=== PATIENT | male | born 1960 | race Caucasian/White ===

== ENCOUNTER → 2016-06-03 | Emergency (ER) | payer MEDICAID, OTHER ==
[~2016-06-03] VITALS: Ht 162.6 cm; Wt 90.7 kg
[~2016-06-03] MED LIST: ATEN50TA2 PO; BENAZEPRIL-HCTZ PO; ISOVUE-370 76% 100ML VIAL (Q9967) As Ordered ONE
[2016-06-03 03:34] LABS: BASO # 0.1 K/mm3 (0.0-0.2); BASO % 0.5 % (0.0-1.0); EOS % 0.3 % (0.0-3.0); LARGE UNSTAINED CELL # 0.1 K/mm3 (0.0-0.4); LARGE UNSTAINED CELL % 0.6 % (0.0-4.0); LYMPH # 0.9 K/mm3 (1.5-4.5); LYMPH % 6.9 % (24.0-44.0); MEAN CORPUSCULAR HEMOGLOBIN 35.6 pg (27.0-33.0); MEAN CORPUSCULAR HGB CONC 35.6 g/dl (32.0-36.5); MEAN CORPUSCULAR VOLUME 99.9 fl (80.0-96.0); NEUTROPHILS # 10.1 K/mm3 (1.8-7.7); NEUTROPHILS % 83.6 % (36.0-66.0); RED CELL DISTRIBUTION WIDTH 13.8 % (11.5-14.5); WHITE BLOOD COUNT 12.1 K/mm3 (4.0-10.0)
[2016-06-03] MEDS: PANTOPRAZOLE 40MG INJ (PROTONIX) (C9113) IV ONE (03:41)
[2016-06-03 03:52] LABS: ALBUMIN 2.7 GM/DL (3.2-5.2); ALBUMIN/GLOBULIN RATIO 0.59 (1.00-1.93); ALKALINE PHOSPHATASE 89 U/L (45-117); ALT/SGPT 24 U/L (12-78); ANION GAP 11 MEQ/L (8-16); AST/SGOT 28 U/L (15-37); BILIRUBIN,DIRECT 1.1 MG/DL (0.0-0.2); BILIRUBIN,TOTAL 3.3 MG/DL (0.2-1.0); BLOOD UREA NITROGEN 29 MG/DL (7-18); CALCIUM LEVEL 8.3 MG/DL (8.5-10.1); CARBON DIOXIDE LEVEL 28 MEQ/L (21-32); CHLORIDE LEVEL 99 MEQ/L (98-107); CREATININE FOR GFR 1.11 MG/DL (0.70-1.30); GLOMERULAR FILTRATION RATE > 60.0 (>56); GLUCOSE, FASTING 237 MG/DL (70-105); POTASSIUM SERUM 4.3 MEQ/L (3.5-5.1); SODIUM LEVEL 138 MEQ/L (136-145); TOTAL PROTEIN 7.3 GM/DL (6.4-8.2)
[2016-06-03 04:13] LABS: INR 1.49
[2016-06-03 04:17] LABS: PLATELET COUNT, AUTOMATED 73 k/mm3 (150-450)
[2016-06-03] MEDS: OCTREOTIDE ACETATE 50 MCG/ML VIAL (J2354) IV SCH (05:00)
[2016-06-03] MEDS: CIPRODEX OTIC SUSP 7.5ML AS ONE (05:17)
[2016-06-03] MEDS: ONDANSETRON 4MG/2ML VIAL (J2405) IV ONE ×2 (05:23→07:00)
--- NOTE | 2016-06-03 05:30 | REPUSA ---
CLINICAL HISTORY: Abdominal pain. TECHNIQUE: Multiple axial, sagittal and coronal CT images were obtained through the abdomen and pelvi s after administration of oral and intravenous contrast material. COMMENTS: Diffuse nodularity and mesenteric congestion. 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 Re sidual flow is identified in the vein. The liver is cirrhotic. There is no intra or extrahepatic biliary ductal dilatation. The spleen is mi ldly enlarged. The gallbladder is diffusely thickened. Gallstones are noted. The pancreas is of deepa l contour and attenuation characteristics. There is no evidence of adrenal mass. Mild thickening of the proximal small bowels. Both kidneys demonstrate prompt and equal nephrograms. The kidneys are normal in size, shape and conf iguration. There is no evidence of renal or ureteral mass. No renal or ureteral calculi are identifie d. There is no hydroureter or hydronephrosis. No evidence for appendicitis. There is diffuse thickening of the mid aspect of the sigmoid colon. Co lonic diverticulosis. No evidence for small or large bowel obstruction. There is no evidence of abdom inal ascites or lymphadenopathy. There is no evidence of intrinsic or extrinsic bladder mass. Mild thickening of the wall of the bladd er. There is minimal amount of free pelvic fluid. Mild prostatomegaly. Images of the lung bases show no evidence of pleural or parenchymal mass. There are no pleural effusi ons. The bony structures are free of lytic or blastic lesions. Multilevel degenerative changes are seen in volving the thoracolumbar spine. Scattered calcifications are seen involving the aorta and major bran ches compatible with atherosclerosis. Fat containing umbilical hernia without incarceration. IMPRESSION: Liver cirrhosis. Portal hypertension. Mesenteric congestion and thickened bowels. 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 There is no extension of the thrombus into the portal or splenic veins. Thickened gallbladder. Cholelithiasis. Thickening of the mid aspect of the sigmoid colon. Under distention, spasm versus infectious/inflamma tory pathology. Clinical evaluation and followup are suggested to exclude underlying neoplastic patho logy. Thank you for your kind referral of this patient.
[2016-06-03] MEDS: NS 1,000 ML IV ONE (05:45)
[2016-06-03 07:04] VITALS: BP 138/72
--- NOTE | 2016-06-03 16:43 | ECGEPIP ---
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
== END | disposition home or self-care (01) ==
LOC: M ED 03:33
DX: K92.2 Gastrointestinal hemorrhage, unspecified (principal)
CPT/HCPCS: 36415; 74177; 80048; 80076; 82550; 82553; 83690; 85025; 85610; 85730; 86850; 86900; 86901; 93005; 93041; 96374; 99285; C9113; G0480; J2354; J2405; Q9967

== ENCOUNTER → 2016-06-13 | Outpatient (REF) | payer MEDICAID ==
[~2016-06-13] MED LIST changes: -ISOVUE-370 76% 100ML VIAL (Q9967) As Ordered ONE
[2016-06-13 17:00] LABS: BASO % 0.6 % (0.0-1.0); EOS # 0.2 K/mm3 (0.0-0.50); EOS % 2.5 % (0.0-3.0); LARGE UNSTAINED CELL # 0.1 K/mm3 (0.0-0.4); LARGE UNSTAINED CELL % 1.8 % (0.0-4.0); LYMPH # 1.2 K/mm3 (1.5-4.5); LYMPH % 18.3 % (24.0-44.0); MEAN CORPUSCULAR HEMOGLOBIN 32.9 pg (27.0-33.0); MEAN CORPUSCULAR HGB CONC 33.6 g/dl (32.0-36.5); MONO # 0.6 K/mm3 (0.0-0.8); MONO % 9.6 % (0.0-5.0); NEUTROPHILS # 4.2 K/mm3 (1.8-7.7); NEUTROPHILS % 67.2 % (36.0-66.0); RED CELL DISTRIBUTION WIDTH 15.9 % (11.5-14.5); WHITE BLOOD COUNT 6.3 K/mm3 (4.0-10.0)
[2016-06-13 17:05] LABS: PLATELET COUNT, AUTOMATED 80 k/mm3 (150-450)
== END ==
LOC: M SFHCCLAY 11:14
PROVIDERS: ATTEND Nurse Practitioner Family
DX: K92.2 Gastrointestinal hemorrhage, unspecified (principal)

== ENCOUNTER → 2016-07-09 | Outpatient (CLI) | payer MEDICAID ==
[~2016-07-09] MED LIST changes: +BENA20TA7 PO; +NADO20TA PO; +PROT1TAB2 PO
[2016-07-09 13:22] LABS: INR 1.32
[2016-07-09 13:37] LABS: BASO % 0.6 % (0.0-1.0); EOS # 0.2 K/mm3 (0.0-0.50); EOS % 3.1 % (0.0-3.0); LARGE UNSTAINED CELL # 0.1 K/mm3 (0.0-0.4); LARGE UNSTAINED CELL % 1.5 % (0.0-4.0); LYMPH % 18.7 % (24.0-44.0); MEAN CORPUSCULAR HEMOGLOBIN 32.8 pg (27.0-33.0); MEAN CORPUSCULAR HGB CONC 33.6 g/dl (32.0-36.5); MEAN CORPUSCULAR VOLUME 97.6 fl (80.0-96.0); MONO # 0.4 K/mm3 (0.0-0.8); MONO % 8.5 % (0.0-5.0); NEUTROPHILS # 3.3 K/mm3 (1.8-7.7); NEUTROPHILS % 67.6 % (36.0-66.0); RED CELL DISTRIBUTION WIDTH 14.7 % (11.5-14.5); WHITE BLOOD COUNT 4.9 K/mm3 (4.0-10.0)
[2016-07-09 13:43] LABS: PLATELET COUNT, AUTOMATED 52 k/mm3 (150-450)
[2016-07-09 13:47] LABS: ALBUMIN 3.1 GM/DL (3.2-5.2); ALBUMIN/GLOBULIN RATIO 0.65 (1.00-1.93); ALKALINE PHOSPHATASE 82 U/L (45-117); ALT/SGPT 25 U/L (12-78); ANION GAP 7 MEQ/L (8-16); AST/SGOT 25 U/L (15-37); BILIRUBIN,TOTAL 1.3 MG/DL (0.2-1.0); BLOOD UREA NITROGEN 11 MG/DL (7-18); CALCIUM LEVEL 8.9 MG/DL (8.5-10.1); CARBON DIOXIDE LEVEL 29 MEQ/L (21-32); CHLORIDE LEVEL 103 MEQ/L (98-107); CREATININE FOR GFR 0.79 MG/DL (0.70-1.30); GLOMERULAR FILTRATION RATE > 60.0 (>56); GLUCOSE, FASTING 127 MG/DL (70-105); PERCENT SATURATION 24.7 % (19.7-37.4); POTASSIUM SERUM 3.7 MEQ/L (3.5-5.1); SODIUM LEVEL 139 MEQ/L (136-145); TOTAL IRON BINDING CAPACITY 360 UG/DL (250-450); TOTAL PROTEIN 7.9 GM/DL (6.4-8.2)
[2016-07-12 00:07] LABS: HCV RNA NAA QUALITIATIVE Negative (Negative)
== END ==
LOC: M LAB 12:28
PROVIDERS: ATTEND Internal Medicine Gastroenterology
DX: K76.6 Portal hypertension (principal); K70.30 Alcoholic cirrhosis of liver without ascites

== ENCOUNTER → 2016-07-22 | Outpatient (CLI) | payer MEDICAID, OTHER ==
[~2016-07-22] VITALS: Ht 162.6 cm; Wt 86.6 kg
[~2016-07-22] MED LIST changes: +LIDOCAINE 2% INJ 100 MG/5 ML SDV (FOR ANES.) As Ordered ONE; +NS 1,000 ML IV ONE; +PROPOFOL 200 MG/20 ML VIAL As Ordered ONE; +PROPOFOL 500 MG/50 ML VIAL As Ordered ONE
--- NOTE | 2016-07-22 10:31 | ROOR ---
Patient Name: Mak Mendieta Procedure Date: 07/22/2016 10:13 AM Date of : 1960 Age: 55 Room: [facility] Gender: Male Note Status: Finalized Procedure: Upper GI endoscopy Indications: Cirrhosis with suspected esophageal varices Providers: Cecilio TOPETE MD Referring MD: Jordyn Salmon NP Requesting Provider: Medicines: Monitored Anesthesia Care Complications: No immediate complications. Procedure: Pre-Anesthesia Assessment: - The heart rate, respiratory rate, oxygen saturations, blood pressure, adequacy of pulmonary ventilation, and response to care were monitored throughout the procedure. The Endoscope was introduced through the mouth, and advanced to the second part of duodenum. The upper GI endoscopy was accomplished without difficulty. The patient tolerated the procedure well. Findings: Grade II varices were found in the lower third of the esophagus. They were medium in size. Five bands were successfully placed with complete eradication, resulting in deflation of varices. There was no bleeding during, and at the end, of the procedure. The exam of the esophagus was otherwise normal. The entire examined stomach was normal. The examined duodenum was normal. Impression: - Grade II esophageal varices. Completely eradicated. Banded. - Normal stomach. - Normal examined duodenum. - No specimens collected. Recommendation: - Start/continue a Non-selective Beta Ose[place] such as Propranolol or Nadolol, titrate to heart rate. - Repeat upper endoscopy in 1 month for retreatment. Cecilio Topete MD Cecilio TOPETE MD 07/22/2016 10:31:01 AM This report has been signed electronically. Number of Addenda: 0 Note Initiated On: 07/22/2016 10:13 AM Estimated Blood Loss: Estimated blood loss: none.
--- NOTE | 2016-07-22 10:47 | ROOR ---
Patient Name: Mak Mendieta Procedure Date: 07/22/2016 10:14 AM Date of : 1960 Age: 55 Room: [facility] Gender: Male Note Status: Finalized Procedure: Colonoscopy Indications: Screening in patient at increased risk: Colorectal cancer in mother before age 60 Providers: Cecilio TOPETE MD Referring MD: Jordyn Salmon NP Requesting Provider: Medicines: Monitored Anesthesia Care Complications: No immediate complications. Procedure: Pre-Anesthesia Assessment: - The heart rate, respiratory rate, oxygen saturations, blood pressure, adequacy of pulmonary ventilation, and response to care were monitored throughout the procedure. The Colonoscope was introduced through the anus and advanced to the cecum, identified by appendiceal orifice and ileocecal valve. The colonoscopy was performed without difficulty. The patient tolerated the procedure well. The quality of the bowel preparation was good. Findings: The perianal and digital rectal examinations were normal. A 2 mm polyp was found in the cecum. The polyp was sessile. The polyp was removed with a jumbo cold forceps. Resection and retrieval were complete. Three sessile polyps were found in the sigmoid colon. The polyps were 3 to 5 mm in size. These polyps were removed with a cold snare. Resection and retrieval were complete. Multiple medium-mouthed diverticula were found in the sigmoid colon, descending colon and ascending colon. The exam was otherwise without abnormality on direct and retroflexion views. Impression: - One 2 mm polyp in the cecum, removed with a jumbo cold forceps. Resected and retrieved. - Three 3 to 5 mm polyps in the sigmoid colon, removed with a cold snare. Resected and retrieved. - Diverticulosis in the sigmoid colon, in the descending colon and in the ascending colon. - Small internal hemorrhoids - The colon examination was otherwise normal on direct and retroflexion views. Recommendation: - Repeat colonoscopy in 3 years for surveillance. Cecilio Topete MD Cecilio TOPETE MD 07/22/2016 10:46:52 AM This report has been signed electronically. Number of Addenda: 0 Note Initiated On: 07/22/2016 10:14 AM Estimated Blood Loss: Estimated blood loss: none.
[2016-07-22 11:05] VITALS: BP 176/95
== END | disposition home or self-care (01) ==
LOC: M OPP 09:07
PROVIDERS: ATTEND Internal Medicine Gastroenterology
DX: Z12.11 Encounter for screening for malignant neoplasm of colon (principal); D12.0 Benign neoplasm of cecum; D12.5 Benign neoplasm of sigmoid colon; K57.30 Diverticulosis of large intestine without perforation or abscess without bleeding; K64.8 Other hemorrhoids; Z80.0 Family history of malignant neoplasm of digestive organs; K74.60 Unspecified cirrhosis of liver; I85.10 Secondary esophageal varices without bleeding; I10 Essential (primary) hypertension; K57.92 Diverticulitis of intestine, part unspecified, without perforation or abscess without bleeding; Z87.19 Personal history of other diseases of the digestive system; R12 Heartburn; Z86.19 Personal history of other infectious and parasitic diseases; F17.210 Nicotine dependence, cigarettes, uncomplicated; Z79.899 Other long term (current) drug therapy

== ENCOUNTER → 2017-06-30 | Outpatient (REF) | payer OTHER ==
[2017-06-30 17:49] LABS: TOTAL 25(OH) VITAMIN D 15.3 NG/ML (30.0-100.0); VITAMIN B12 LEVEL 953 PG/ML (247-911)
[2017-06-30 17:50] LABS: ESTIMATED AVERAGE GLUCOSE 243 MG/DL (60-110); FOLATE 7.3 NG/ML (>5.4); HEMOGLOBIN A1c 10.1 %
[2017-06-30 18:02] LABS: ALBUMIN 3.5 GM/DL (3.2-5.2); ALKALINE PHOSPHATASE 126 U/L (45-117); ALT/SGPT 34 U/L (12-78); ANION GAP 12 MEQ/L (8-16); AST/SGOT 59 U/L (7-37); BILIRUBIN,TOTAL 4.8 MG/DL (0.2-1.0); BLOOD UREA NITROGEN 17 MG/DL (7-18); CALCIUM LEVEL 9.1 MG/DL (8.5-10.1); CARBON DIOXIDE LEVEL 25 MEQ/L (21-32); CHLORIDE LEVEL 97 MEQ/L (98-107); CHOLESTEROL LEVEL 128 MG/DL (<200); CHOLESTEROL RISK RATIO 3.282 (<5); CREATININE FOR GFR 0.95 MG/DL (0.70-1.30); FERRITIN 228 NG/ML (26-388); GLOMERULAR FILTRATION RATE > 60.0 (>56); GLUCOSE, FASTING 256 MG/DL (70-100); HDL CHOLESTEROL 39 MG/DL (>40); IRON (FE) 313 UG/DL (65-175); NON-HDL-C 89 MG/DL; PERCENT SATURATION 93.7 % (19.7-50.0); POTASSIUM SERUM 3.6 MEQ/L (3.5-5.1); SODIUM LEVEL 134 MEQ/L (136-145); TOTAL IRON BINDING CAPACITY 334 UG/DL (250-450); TOTAL PROTEIN 8.5 GM/DL (6.4-8.2); TRIGLYCERIDES LEVEL 155 MG/DL (<150)
[2017-06-30 18:11] LABS: MAU/CREAT RATIO 53.2 MCG/MG (0.0-30.0); TOTAL PROTEIN,RANDOM URINE 51.5 MG/DL (0.0-12.0)
[2017-06-30 18:13] LABS: GAMMA GLUTAMYLTRANSPEPTIDASE 1082 U/L (15-85); HEMOGLOBIN 15.4 g/dl (13.5-17.5); MEAN CORPUSCULAR HEMOGLOBIN 34.2 pg (27.0-33.0); MEAN CORPUSCULAR HGB CONC 35.8 g/dl (32.0-36.5); MEAN CORPUSCULAR VOLUME 95.6 fl (80.0-96.0); RED CELL DISTRIBUTION WIDTH 13.8 % (11.5-14.5); RETIC HEMOGLOBIN EQUIVALENT 41.1 pg (24-36); RETICULOCYTE # 76.1 10^9/L (17-77); RETICULOCYTE % 1.7 % (0.5-1.5); WHITE BLOOD COUNT 4.8 10^3/uL (4.0-10.0)
[2017-06-30 18:20] LABS: PLATELET COUNT, AUTOMATED 34 10^3/uL (150-450); POSITIVE MORPH POS FLAG
== END ==
LOC: M SFHCCLAY 12:25
DX: K21.9 Gastro-esophageal reflux disease without esophagitis (principal); R73.9 Hyperglycemia, unspecified; F10.10 Alcohol abuse, uncomplicated; E78.4 Other hyperlipidemia; E55.9 Vitamin D deficiency, unspecified
CPT/HCPCS: 82746

== ENCOUNTER → 2018-04-21 | Outpatient (REF) | payer OTHER ==
[~2018-04-21] MED LIST changes: -LIDOCAINE 2% INJ 100 MG/5 ML SDV (FOR ANES.) As Ordered ONE; -NS 1,000 ML IV ONE; -PROPOFOL 200 MG/20 ML VIAL As Ordered ONE; -PROPOFOL 500 MG/50 ML VIAL As Ordered ONE
== END ==
LOC: M SFHCCLAY 13:39
PROVIDERS: ATTEND Nurse Practitioner Family
DX: R50.9 Fever, unspecified (principal)

== ENCOUNTER → 2018-04-21 | Outpatient (CLI) | payer SELFPAY ==
--- NOTE | 2018-04-21 13:30 | REP ---
Clinical: Bronchitis . Comparison: None . Technique: PA and lateral. Findings: The mediastinum and cardiac silhouette are normal. The lung torres are clear and without acute consolidation, effusion, or pneumothorax. The skeletal structures are intact and normal. Impression: 1. No acute cardiopulmonary process. Electronically Signed by Kiko Barth MD 04/21/2018 01:22 P
== END ==
LOC: M CLY 12:25
PROVIDERS: ATTEND Nurse Practitioner Family
DX: J40 Bronchitis, not specified as acute or chronic (principal)

== ENCOUNTER → 2018-11-18 | Outpatient (CLI) | payer SELFPAY | LOC: M OUTALCOH 08:31 | PROVIDERS: ATTEND Psychiatry & Neurology Psychiatry | DX: Z13.39 Encounter for screening examination for other mental health and behavioral disorders (principal); F10.20 Alcohol dependence, uncomplicated ==

== ENCOUNTER → 2019-02-28 | Outpatient (CLI) | payer SELFPAY | LOC: M OUTALCOH 08:54 | PROVIDERS: ATTEND Psychiatry & Neurology Psychiatry | DX: F10.20 Alcohol dependence, uncomplicated (principal) ==

== ENCOUNTER 2019-03-23 14:53 | Outpatient (RCR) | payer MEDICAID | END 2019-03-25 | LOC: M OUTALCOH 14:53 | PROVIDERS: ATTEND Psychiatry & Neurology Psychiatry | DX: F10.20 Alcohol dependence, uncomplicated (principal); F17.200 Nicotine dependence, unspecified, uncomplicated ==

== ENCOUNTER → 2019-11-29 | Outpatient (CLI) | payer MEDICAID | LOC: M LABSMTC 09:41 | PROVIDERS: ATTEND Pediatrics | DX: Z20.828 Contact with and (suspected) exposure to other viral communicable diseases (principal) | CPT/HCPCS: C9803; U0003 ==

== ENCOUNTER → 2020-01-18 | Outpatient (REF) | payer OTHER ==
[2020-01-18 16:41] LABS: HEMATOCRIT 41.6 % (42.0-52.0); HEMOGLOBIN 14.4 g/dl (13.5-17.5); WHITE BLOOD COUNT 4.7 10^3/uL (4.0-10.0)
[2020-01-18 16:42] LABS: MEAN CORPUSCULAR HEMOGLOBIN 32.7 pg (27.0-33.0); MEAN CORPUSCULAR HGB CONC 34.6 g/dl (32.0-36.5); MEAN CORPUSCULAR VOLUME 94.5 fl (80.0-96.0); PLATELET COUNT, AUTOMATED 53 10^3/uL (150-450)
[2020-01-18 17:02] LABS: ALT/SGPT 18 U/L (12-78); AMYLASE 57 U/L (25-115); BILIRUBIN,TOTAL 3.4 MG/DL (0.2-1.0); BLOOD UREA NITROGEN 9 MG/DL (7-18); CALCIUM LEVEL 8.9 MG/DL (8.5-10.1); CARBON DIOXIDE LEVEL 27 MEQ/L (21-32); CHLORIDE LEVEL 95 MEQ/L (98-107); CHOLESTEROL LEVEL 165 MG/DL (<200); CHOLESTEROL RISK RATIO 2.229 (<5); CREATININE FOR GFR 1.12 MG/DL (0.70-1.30); GLOMERULAR FILTRATION RATE > 60.0 (>56); GLUCOSE, FASTING 139 MG/DL (70-100); HDL CHOLESTEROL 74 MG/DL (>40); LDL CHOLESTEROL 71 MG/DL (<100); LIPASE 176 U/L (73-393); NON-HDL-C 91 MG/DL; POTASSIUM SERUM 3.4 MEQ/L (3.5-5.1); SODIUM LEVEL 132 MEQ/L (136-145); TOTAL PROTEIN 8.5 GM/DL (6.4-8.2); TRIGLYCERIDES LEVEL 100 MG/DL (<150)
[2020-01-18 17:05] LABS: TOTAL 25(OH) VITAMIN D 11.9 NG/ML (30.0-100.0)
[2020-01-18 17:07] LABS: HEMOGLOBIN A1c 5.2 %
== END ==
LOC: M SFHCCLAY 10:45
PROVIDERS: ATTEND Nurse Practitioner Family
DX: E11.8 Type 2 diabetes mellitus with unspecified complications (principal); B18.2 Chronic viral hepatitis C; K21.9 Gastro-esophageal reflux disease without esophagitis; I10 Essential (primary) hypertension; E78.5 Hyperlipidemia, unspecified; E55.9 Vitamin D deficiency, unspecified; R00.0 Tachycardia, unspecified

== ENCOUNTER → 2020-01-24 | Outpatient (REF) | payer OTHER ==
[2020-01-25 13:08] LABS: MAU/CREAT RATIO 81.2 MCG/MG (0.0-30.0)
== END ==
LOC: M SFHCCLAY 15:19
PROVIDERS: ATTEND Nurse Practitioner Family
DX: E11.8 Type 2 diabetes mellitus with unspecified complications (principal)

== ENCOUNTER 2020-07-27 12:22 | Emergency (ER) | payer OTHER ==
[~2020-07-27] VITALS: Ht 157.5 cm; Wt 90.9 kg
[2020-07-27] MEDS ORDERED: CARV6.25 (12:37)
[2020-07-27] MEDS ORDERED: LACT10SO3 (12:37)
[2020-07-27] MEDS ORDERED: FURO20TA2 (12:37)
[2020-07-27] MEDS ORDERED: NICO21DI37 (12:37)
[2020-07-27] MEDS ORDERED: SPIR-10 (12:37)
[2020-07-27 13:37] LABS: HEMATOCRIT 28.2 % (42.0-52.0); HEMOGLOBIN 9.4 g/dl (13.5-17.5); MEAN CORPUSCULAR HEMOGLOBIN 31.4 pg (27.0-33.0); MEAN CORPUSCULAR HGB CONC 33.3 g/dl (32.0-36.5); MEAN CORPUSCULAR VOLUME 94.3 fl (80.0-96.0); RED BLOOD COUNT 2.99 10^6/uL (4.30-6.10); WHITE BLOOD COUNT 4.8 10^3/uL (4.0-10.0)
[2020-07-27 13:42] LABS: PLATELET COUNT, AUTOMATED 52 10^3/uL (150-450)
[2020-07-27 13:45] LABS: INR 1.29; PROTHROMBIN TIME 16.4 SECONDS (12.5-14.3)
[2020-07-27 13:56] LABS: ALBUMIN 2.5 GM/DL (3.2-5.2); BILIRUBIN,TOTAL 1.7 MG/DL (0.2-1.0); CALCIUM LEVEL 8.8 MG/DL (8.5-10.1); CREATININE FOR GFR 1.69 MG/DL (0.70-1.30); GLOMERULAR FILTRATION RATE 44.4 (>56); POTASSIUM SERUM 3.6 MEQ/L (3.5-5.1); TOTAL PROTEIN 6.9 GM/DL (6.4-8.2)
--- NOTE | 2020-07-27 16:45 | REP ---
INDICATION: recurrent ascites. COMPARISON: None. TECHNIQUE: The procedure was performed under the direct supervision of Dr. Craig. The risks and benefits of the procedure were explained to the patient and informed consent was obtained. The largest pocket of fluid was localized in the left flank using ultrasound guidance. The skin was prepped and draped in a sterile fashion. 1% lidocaine was used as a local anesthetic. An 8-Nigerian multi side-hole catheter was inserted using trocar technique.4400 cc of yellow fluid was withdrawn and discarded. The patient tolerated the procedure well and there were no immediate complications. After the appropriate amount of monitored convalescence, the patient was discharged from the department. FINDINGS: None IMPRESSION: Ultrasound-guided paracentesis [id number] cc of yellow fluid. <Electronically signed by Kermit Kent > 07/27/20 1618 <Electronically signed by Ernie Craig > 07/27/20 1640
[2020-07-27 17:30] VITALS: BP 122/74
== END 2020-07-27 17:40 | disposition home or self-care (01) ==
LOC: M ED 12:22
DX: K70.31 Alcoholic cirrhosis of liver with ascites (principal); K40.90 Unilateral inguinal hernia, without obstruction or gangrene, not specified as recurrent; B18.2 Chronic viral hepatitis C; E78.5 Hyperlipidemia, unspecified; I10 Essential (primary) hypertension

== ENCOUNTER → 2020-08-02 | Outpatient (REF) | payer OTHER ==
[~2020-08-02] MED LIST changes: +CARV6.25; +FURO20TA2; +LACT10SO3; +NICO21DI37; +SPIR-10
[2020-08-02 16:36] LABS: BASO # 0.1 10^3/uL (0.0-0.2); BASO % 0.9 % (0.0-1.0); EOS # 0.4 10^3/uL (0.0-0.5); EOS % 5.6 % (0.0-3.0); HEMATOCRIT 29.1 % (42.0-52.0); HEMOGLOBIN 9.7 g/dl (13.5-17.5); LYMPH # 0.6 10^3/uL (1.5-5.0); LYMPH % 9.2 % (24.0-44.0); MEAN CORPUSCULAR HEMOGLOBIN 31.2 pg (27.0-33.0); MEAN CORPUSCULAR HGB CONC 33.3 g/dl (32.0-36.5); MEAN CORPUSCULAR VOLUME 93.6 fl (80.0-96.0); MONO % 15.6 % (2.0-8.0); NEUTROPHILS # 4.4 10^3/uL (1.5-8.5); NEUTROPHILS % 68.2 % (36.0-66.0); RED BLOOD COUNT 3.11 10^6/uL (4.30-6.10); WHITE BLOOD COUNT 6.4 10^3/uL (4.0-10.0)
[2020-08-02 16:37] LABS: PLATELET COUNT, AUTOMATED 55 10^3/uL (150-450)
[2020-08-02 17:21] LABS: ALBUMIN 2.4 GM/DL (3.2-5.2); BILIRUBIN,TOTAL 1.8 MG/DL (0.2-1.0); CALCIUM LEVEL 8.9 MG/DL (8.5-10.1); CREATININE FOR GFR 1.83 MG/DL (0.70-1.30); GLOMERULAR FILTRATION RATE 40.5 (>56); TOTAL PROTEIN 6.9 GM/DL (6.4-8.2)
== END ==
LOC: M SFHCCLAY 11:53
PROVIDERS: ATTEND Family Medicine
DX: K74.60 Unspecified cirrhosis of liver (principal)

== ENCOUNTER → 2020-08-07 | Outpatient (CLI) | payer OTHER ==
[~2020-08-07] MED LIST changes: -CARV6.25; +CARV6.25 PO; -FURO20TA2; +FURO20TA2 PO; -LACT10SO3; +LACT10SO3 PO; -NICO21DI37; +NICO21DI37 TD; +SODIUM BICARBONATE 8.4% INJ 50MEQ 50 ML VIAL As Ordered ONE; -SPIR-10; +SPIR-10 PO
[2020-08-07 09:56] VITALS: BP 146/72
--- NOTE | 2020-08-07 18:56 | REP ---
INDICATION: CIRRHOSIS ASCITES The patient has a history of ascites COMPARISON: None. TECHNIQUE: The procedure was performed by DAENTTE Ruelas, under the direct supervision of Dr. Craig The risks and benefits of the procedure were explained to the patient and an informed consent was obtained both verbally and written. Directly prior to the start of the procedure a formal time-out was completed in the procedure room. The largest pocket of fluid was localized in the right flank using ultrasound guidance. The skin was prepped and draped in a sterile fashion. Eleven ML of buffered lidocaine was used as a local anesthetic. An 8-Mohawk multi side-hole catheter was inserted using trocar technique. FINDINGS: Seven thousand eight hundred mL of chuyita ascites was removed and discarded. The patient tolerated the procedure well and there were no immediate complications. After the appropriate amount of monitored convalescence, the patient was discharged from the department. IMPRESSION: Ultrasound-guided paracentesis with removal of 7800 mL of chuyita ascites. <Electronically signed by Lucila Mcneill > 08/07/20 1649 <Electronically signed by Ernie Craig > 08/07/20 [id number]
== END ==
LOC: M IRPRO 08:44
PROVIDERS: ATTEND Family Medicine
DX: K70.31 Alcoholic cirrhosis of liver with ascites (principal)

== ENCOUNTER → 2020-08-15 | Outpatient (CLI) | payer OTHER ==
[~2020-08-15] MED LIST changes: -SODIUM BICARBONATE 8.4% INJ 50MEQ 50 ML VIAL As Ordered ONE
[2020-08-15 13:32] VITALS: BP 133/73
--- NOTE | 2020-08-15 16:29 | REP ---
INDICATION: ASCITES. COMPARISON: None. TECHNIQUE: The procedure was performed under the direct supervision of Dr. Craig. The risks and benefits of the procedure were explained to the patient and informed consent was obtained. The largest pocket of fluid was localized in the left flank using ultrasound guidance. The skin was prepped and draped in a sterile fashion. 1% lidocaine was used as a local anesthetic. An 8-Andorran multi side-hole catheter was inserted using trocar technique.5650 cc of yellow fluid was withdrawn and discarded. The patient tolerated the procedure well and there were no immediate complications. After the appropriate amount of monitored convalescence, the patient was discharged from the department. FINDINGS: None IMPRESSION: Ultrasound-guided paracentesis [id number] cc of yellow fluid. <Electronically signed by Kermit Kent > 08/15/20 1536 <Electronically signed by Ernie Craig > 08/15/20 0695
== END ==
LOC: M IRPRO 12:47
PROVIDERS: ATTEND Family Medicine
DX: K70.31 Alcoholic cirrhosis of liver with ascites (principal)

== ENCOUNTER → 2020-08-24 | Outpatient (CLI) | payer OTHER ==
[~2020-08-24] MED LIST changes: +SODIUM BICARBONATE 8.4% INJ 50MEQ 50 ML VIAL As Ordered ONE
[2020-08-24 13:29] VITALS: BP 131/66
--- NOTE | 2020-08-24 15:16 | REP ---
INDICATION: ASCITES The patient has a history of ascites COMPARISON: None. TECHNIQUE: The procedure was performed by DANETTE Ruelas, under the direct supervision of Dr. Guo The risks and benefits of the procedure were explained to the patient and an informed consent was obtained both verbally and written. Directly prior to the start of the procedure a formal time-out was completed in the procedure room. The largest pocket of fluid was localized in the left flank using ultrasound guidance. The skin was prepped and draped in a sterile fashion. Eleven ML of buffered lidocaine was used as a local anesthetic. An 8-Yemeni multi side-hole catheter was inserted using trocar technique. FINDINGS: 6750 mL of yellow ascites was removed and discarded. The patient tolerated the procedure well and there were no immediate complications. After the appropriate amount of monitored convalescence, the patient was discharged from the department. IMPRESSION: Ultrasound-guided paracentesis with removal of 6750 mL yellow ascites. <Electronically signed by Lucila Mcneill > 08/24/20 1512 <Electronically signed by Roderick Guo > 08/24/20 1512
== END ==
LOC: M IRPRO 12:30
PROVIDERS: ATTEND Internal Medicine
DX: K70.31 Alcoholic cirrhosis of liver with ascites (principal)

== ENCOUNTER → 2020-08-31 | Outpatient (CLI) | payer OTHER ==
[~2020-08-31] MED LIST changes: -SODIUM BICARBONATE 8.4% INJ 50MEQ 50 ML VIAL As Ordered ONE
[2020-08-31 10:20] VITALS: BP 98/51
--- NOTE | 2020-08-31 16:47 | REP ---
INDICATION: ASCITES. COMPARISON: None. TECHNIQUE: The procedure was performed under the direct supervision of Dr. Craig. The risks and benefits of the procedure were explained to the patient and informed consent was obtained. The largest pocket of fluid was localized in the right lower quadrant using ultrasound guidance. The skin was prepped and draped in a sterile fashion. 7 mL of 1% lidocaine was used as a local anesthetic. An 8-Indonesian multi side-hole catheter was inserted using trocar technique.5200 cc of yellow fluid was withdrawn and discarded. Estimated blood loss: Less than 1 cc The patient tolerated the procedure well and there were no immediate complications. After the appropriate amount of monitored convalescence, the patient was discharged from the department. FINDINGS: None IMPRESSION: Ultrasound-guided paracentesis [id number] cc of yellow fluid. <Electronically signed by Kermit Kent > 08/31/20 1630 <Electronically signed by Ernie Craig > 08/31/20 164
== END ==
LOC: M IRPRO 09:22
PROVIDERS: ATTEND Internal Medicine
DX: K70.31 Alcoholic cirrhosis of liver with ascites (principal)

== ENCOUNTER → 2020-09-06 | Outpatient (CLI) | payer OTHER ==
[2020-09-06 11:05] VITALS: BP 104/57
--- NOTE | 2020-09-06 15:56 | REP ---
INDICATION: ASCITES. COMPARISON: None. TECHNIQUE: The procedure was performed under the direct supervision of Dr. Guo. The risks and benefits of the procedure were explained to the patient and informed consent was obtained. The largest pocket of fluid was localized in the left flank using ultrasound guidance. The skin was prepped and draped in a sterile fashion. Five mL of 1% lidocaine was used as a local anesthetic. An 8-Setswana multi side-hole catheter was inserted using trocar technique.4700 cc of low viscosity red colored fluid was withdrawn and discarded. Estimated blood loss: Less than 1 cc The patient tolerated the procedure well and there were no immediate complications. After the appropriate amount of monitored convalescence, the patient was discharged from the department. FINDINGS: None IMPRESSION: Ultrasound-guided paracentesis [id number] cc of low viscosity red colored fluid. <Electronically signed by Kermit Kent > 09/06/20 150 <Electronically signed by Roderick Guo > 09/06/20 4064
== END ==
LOC: M IRPRO 10:21
PROVIDERS: ATTEND Internal Medicine
DX: K70.31 Alcoholic cirrhosis of liver with ascites (principal)

== ENCOUNTER → 2020-09-11 | Outpatient (REF) | payer OTHER ==
[~2020-09-11] MED LIST changes: +ASPE16CR TOP; +IBUP200C25 PO; +TORS20TA2 PO
[2020-09-11 18:40] LABS: HEMATOCRIT 29.4 % (42.0-52.0); HEMOGLOBIN 9.8 g/dl (13.5-17.5); MEAN CORPUSCULAR HEMOGLOBIN 30.6 pg (27.0-33.0); MEAN CORPUSCULAR HGB CONC 33.3 g/dl (32.0-36.5); MEAN CORPUSCULAR VOLUME 91.9 fl (80.0-96.0); WHITE BLOOD COUNT 6.5 10^3/uL (4.0-10.0)
[2020-09-11 18:43] LABS: PLATELET COUNT, AUTOMATED 57 10^3/uL (150-450)
[2020-09-11 19:10] LABS: ALBUMIN 2.1 GM/DL (3.2-5.2); BILIRUBIN,TOTAL 1.5 MG/DL (0.2-1.0); CALCIUM LEVEL 8.6 MG/DL (8.5-10.1); CREATININE FOR GFR 2.65 MG/DL (0.70-1.30); GLOMERULAR FILTRATION RATE 26.4 (>56); POTASSIUM SERUM 4.4 MEQ/L (3.5-5.1); TOTAL PROTEIN 6.6 GM/DL (6.4-8.2)
== END ==
LOC: M SFHCCLAY 11:28
PROVIDERS: ATTEND Family Medicine
DX: K70.31 Alcoholic cirrhosis of liver with ascites (principal); E11.8 Type 2 diabetes mellitus with unspecified complications

== ENCOUNTER → 2020-09-14 | Outpatient (CLI) | payer OTHER ==
[2020-09-14 09:08] VITALS: BP 106/58
--- NOTE | 2020-09-14 17:10 | REP ---
INDICATION: ASCITES. COMPARISON: None. TECHNIQUE: The procedure was performed under the direct supervision of Dr. Craig. The risks and benefits of the procedure were explained to the patient and informed consent was obtained. The largest pocket of fluid was localized in the left flank using ultrasound guidance. The skin was prepped and draped in a sterile fashion. 8 mL of 1% lidocaine was used as a local anesthetic. Using ultrasound guidance an 8-Italian multi side-hole catheter was inserted using trocar technique.5800 mL of chuyita colored fluid. Estimated blood loss: Less than 1 mL The patient tolerated the procedure well and there were no immediate complications. After the appropriate amount of monitored convalescence, the patient was discharged from the department. FINDINGS: None IMPRESSION: Ultrasound-guided paracentesis [id number] mL of chuyita colored fluid. <Electronically signed by Kermit Kent > 09/14/20 3898 <Electronically signed by Ernie Craig > 09/14/20 0153
== END ==
LOC: M IRPRO 08:06
PROVIDERS: ATTEND Internal Medicine
DX: K70.31 Alcoholic cirrhosis of liver with ascites (principal)

== ENCOUNTER 2020-09-18 12:20 | Outpatient (CLI) | payer OTHER ==
[2020-09-18 12:40] VITALS: BP 138/69
[2020-09-18 15:50] VITALS: BP 125/61
== END 2020-09-18 15:50 | disposition home or self-care (01) ==
LOC: M INFU 12:20
PROVIDERS: ATTEND Family Medicine
DX: E88.09 Other disorders of plasma-protein metabolism, not elsewhere classified (principal); K70.31 Alcoholic cirrhosis of liver with ascites
CPT/HCPCS: 96365; 96366; P9047

== ENCOUNTER → 2020-09-21 | Outpatient (CLI) | payer OTHER ==
[2020-09-21 09:22] VITALS: BP 122/70
--- NOTE | 2020-09-21 19:36 | REP ---
INDICATION: ASCITES. COMPARISON: None. TECHNIQUE: The procedure was performed under the direct supervision of Dr. uGo. The risks and benefits of the procedure were explained to the patient and informed consent was obtained. The largest pocket of fluid was localized in the left lower quadrant using ultrasound guidance. The skin was prepped and draped in a sterile fashion. 5 mL of 1% lidocaine was used as a local anesthetic. An 8-Gambian multi side-hole catheter was inserted using trocar technique.6700 mL of yellow fluid was withdrawn and discarded. Estimated blood loss: Less than 1 cc The patient tolerated the procedure well and there were no immediate complications. After the appropriate amount of monitored convalescence, the patient was discharged from the department. FINDINGS: None IMPRESSION: Ultrasound-guided paracentesis [id number] mL of yellow fluid. <Electronically signed by Kermit Kent > 09/21/20 1823 <Electronically signed by Roderick Guo > 09/21/20 1932
== END ==
LOC: M IRPRO 08:03
PROVIDERS: ATTEND Internal Medicine
DX: K70.31 Alcoholic cirrhosis of liver with ascites (principal)

== ENCOUNTER → 2020-09-28 | Outpatient (CLI) | payer OTHER ==
[2020-09-28 09:36] VITALS: BP 115/55
--- NOTE | 2020-09-28 16:25 | REP ---
INDICATION: ASCITES. COMPARISON: None. TECHNIQUE: The procedure was performed under the direct supervision of Dr. Craig. The risks and benefits of the procedure were explained to the patient and informed consent was obtained. The largest pocket of fluid was localized in the right lower quadrant using ultrasound guidance. The skin was prepped and draped in a sterile fashion. 4 mL of 1% lidocaine was used as a local anesthetic. An 8-Pashto multi side-hole catheter was inserted using trocar technique.4800 mL of yellow fluid was withdrawn and discarded. Estimated blood loss: Less than 1 mL The patient tolerated the procedure well and there were no immediate complications. After the appropriate amount of monitored convalescence, the patient was discharged from the department. FINDINGS: None IMPRESSION: Ultrasound-guided paracentesis [id number] mL of yellow fluid. <Electronically signed by Kermit Kent > 09/28/20 1616 <Electronically signed by Ernie Craig > 09/28/20 1623
== END ==
LOC: M IRPRO 08:24
PROVIDERS: ATTEND Family Medicine
DX: K70.31 Alcoholic cirrhosis of liver with ascites (principal)

== ENCOUNTER → 2020-10-05 | Outpatient (CLI) | payer OTHER ==
[~2020-10-05] MED LIST changes: +SODIUM BICARBONATE 8.4% INJ 50MEQ 50 ML VIAL As Ordered ONE
[2020-10-05 10:28] VITALS: BP 118/68
--- NOTE | 2020-10-05 16:26 | REP ---
INDICATION: ASCITES The patient has a history of ascites COMPARISON: None. TECHNIQUE: The procedure was performed by DANETTE Ruelas, under the direct supervision of Dr. Guo The risks and benefits of the procedure were explained to the patient and an informed consent was obtained both verbally and written. Directly prior to the start of the procedure a formal time-out was completed in the procedure room. The largest pocket of fluid was localized in the right flank using ultrasound guidance. The skin was prepped and draped in a sterile fashion. Eleven ML of buffered lidocaine was used as a local anesthetic. An 8-Tamazight multi side-hole catheter was inserted using trocar technique. FINDINGS: 2700 mL of ascites was removed and discarded. The patient tolerated the procedure well and there were no immediate complications. After the appropriate amount of monitored convalescence, the patient was discharged from the department. IMPRESSION: Ultrasound-guided paracentesis with removal of 2700 mL of yellow ascites. <Electronically signed by Lucila Mcneill > 10/05/20 1400 <Electronically signed by Roderick Guo > 10/05/20 0487
== END ==
LOC: M IRPRO 09:15
PROVIDERS: ATTEND Internal Medicine
DX: K70.31 Alcoholic cirrhosis of liver with ascites (principal)

== ENCOUNTER → 2020-10-12 | Outpatient (CLI) | payer OTHER ==
[~2020-10-12] MED LIST changes: +CARV12.5 PO; -SODIUM BICARBONATE 8.4% INJ 50MEQ 50 ML VIAL As Ordered ONE
[2020-10-12 08:58] VITALS: BP 108/60
--- NOTE | 2020-10-17 15:21 | REP ---
INDICATION: ASCITES. COMPARISON: None. TECHNIQUE: The procedure was performed under the direct supervision of Dr. Craig. The risks and benefits of the procedure were explained to the patient and informed consent was obtained. The largest pocket of fluid was localized in the right lower quadrant using ultrasound guidance. The skin was prepped and draped in a sterile fashion. 9 mL of 1% lidocaine was used as a local anesthetic. Using ultrasound guidance, an 8-Vietnamese multi side-hole catheter was inserted using trocar technique.2400 mL of yellow fluid was withdrawn and discarded. Estimated blood loss: Less than 1 mL The patient tolerated the procedure well and there were no immediate complications. After the appropriate amount of monitored convalescence, the patient was discharged from the department. FINDINGS: None IMPRESSION: Ultrasound-guided paracentesis [id number] mL of yellow fluid. <Electronically signed by Kermit Kent > 10/12/20 1626 <Electronically signed by Ernie Craig > 10/12/20 [id number]
== END ==
LOC: M IRPRO 08:03
PROVIDERS: ATTEND Internal Medicine
DX: K70.31 Alcoholic cirrhosis of liver with ascites (principal)

== ENCOUNTER 2020-10-16 12:04 | Inpatient (IN) | payer OTHER ==
[~2020-10-16 12:04] MED LIST changes: -CARV12.5 PO
--- NOTE | 2020-10-16 12:34 | REP ---
INDICATION: Altered Mental Status. COMPARISON: 04/21/2018 the latest prior a exam PA and lateral exam TECHNIQUE: Portable FINDINGS: The technique utilized in obtaining the radiograph has magnified the cardiac silhouette and accentuated the interstitial markings. Mild cardiomegaly cannot be ruled out secondary to technique. The lung torres are hypoexpanded crowding the vascularity. No definite patchy parenchymal opacities or pleural effusions seem to be evident. There is no significant change in the osseous structures. IMPRESSION: There is no acute cardiopulmonary disease. Exam limited by technique. <Electronically signed by Corbin Lima > 10/16/20 [id number]
--- NOTE | 2020-10-16 12:46 | REP ---
INDICATION: Altered Mental Status. COMPARISON: None. TECHNIQUE: 5 x 5 mm contiguous transaxial sections were obtained using helical technique from the skull base to the cerebral convexities. FINDINGS: The ventricles and sulci are consistent with the patient's age. There are no extra-axial fluid collections. There is no mass effect. The deep cerebral white matter is consistent with the patient's age. There is a subtle curvilinear focus of increased density seen in the left anterior cerebral hemisphere without corresponding mass effect or evidence of underlying edema. The orbital and petrous structures, cerebellopontine angles, and posterior fossa are unremarkable. The sella turcica, cavernous, and paracavernous structures are essentially unremarkable. The visualized portions of the paranasal sinuses are within normal limits with the exception of a small amount of mucosal thickening seen in the posterior ethmoid bulla on the left. The mastoid air cells are clear. Images of the skull base show no gross abnormality. IMPRESSION: Possible tiny developmental venous anomaly left cerebellar hemisphere. This would need to be confirmed with a contrast-enhanced exam. Examination is otherwise essentially unremarkable. <Electronically signed by Corbin Lima > 10/16/20 9833
[2020-10-16 13:13] LABS: VENOUS BASE EXCESS 1.9 (-2.0-2.0); VENOUS HCO3 24.3 MEQ/L (23.0-27.0); VENOUS PARTIAL PRESSURE CO2 30.5 mmHg (38.0-50.0); VENOUS PARTIAL PRESSURE O2 128.4 mmHg (30.0-50.0); VENOUS STANDARD HCO3 26.2 MEQ/L; VENOUS TOTAL CO2 25.3 MEQ/L (24.0-28.0)
[2020-10-16 13:19] LABS: BASO % 0.8 % (0.0-1.0); EOS # 0.3 10^3/uL (0.0-0.5); EOS % 6.2 % (0.0-3.0); HEMATOCRIT 25.1 % (42.0-52.0); HEMOGLOBIN 8.6 g/dl (13.5-17.5); LYMPH # 0.7 10^3/uL (1.5-5.0); LYMPH % 14.4 % (24.0-44.0); MEAN CORPUSCULAR HEMOGLOBIN 30.5 pg (27.0-33.0); MEAN CORPUSCULAR HGB CONC 34.3 g/dl (32.0-36.5); MONO # 0.9 10^3/uL (0.0-0.8); MONO % 18.8 % (2.0-8.0); NEUTROPHILS % 59.2 % (36.0-66.0); RED BLOOD COUNT 2.82 10^6/uL (4.30-6.10)
[2020-10-16 13:22] LABS: PLATELET COUNT, AUTOMATED 33 10^3/uL (150-450)
[2020-10-16 13:51] LABS: OSMOLALITY SERUM 298 MOSM/KG (275-295)
[2020-10-16 14:13] LABS: ACETAMINOPHEN LEVEL < 2.0 UG/ML (10.0-30.0); ALBUMIN 1.7 GM/DL (3.2-5.2); ALT/SGPT 15 U/L (12-78); BILIRUBIN,DIRECT 0.4 MG/DL (0.0-0.2); BILIRUBIN,TOTAL 1.5 MG/DL (0.2-1.0); BLOOD UREA NITROGEN 24 MG/DL (7-18); CARBON DIOXIDE LEVEL 26 MEQ/L (21-32); CHLORIDE LEVEL 108 MEQ/L (98-107); CK-MB VALUE MASS < 1.0 NG/ML (<3.6); CPK CREATINE PHOSPHOKINASE 80 U/L (39-308); CREATININE FOR GFR 1.74 MG/DL (0.70-1.30); ETHYL ALCOHOL (ETHANOL) < 0.003 % (0.000-0.010); GLUCOSE, FASTING 134 MG/DL (70-100); MB/CK RELATIVE INDEX 1.25 (< OR =4); POTASSIUM SERUM 5.1 MEQ/L (3.5-5.1); SALICYLATE LEVEL < 1.7 MG/DL (5.0-30.0); SODIUM LEVEL 140 MEQ/L (136-145); TOTAL PROTEIN 6.2 GM/DL (6.4-8.2); TROPONIN I < 0.02 NG/ML (< 0.10)
[2020-10-16 14:18] LABS: RSV AMPLIFICATION NEGATIVE (NEGATIVE)
[2020-10-16] MEDS ORDERED: CARV12.5 PO (14:25)
[2020-10-16] MEDS ORDERED: HOME MED LIST COMPLETE! XX SCH (14:25)
[2020-10-16 14:55] LABS: AMPHETAMINES LEVEL URINE NEGATIVE (NEGATIVE); BARBITURATES URINE NEGATIVE (NEGATIVE); BENZODIAZEPINES URINE NEGATIVE (NEGATIVE); CANNABINOIDS URINE NEGATIVE (NEGATIVE); COCAINE METABOLITE URINE NEGATIVE (NEGATIVE); METHADONE URINE NEGATIVE (NEGATIVE); OPIATES URINE NEGATIVE (NEGATIVE); PHENCYCLIDINE URINE NEGATIVE (NEGATIVE)
[2020-10-16] MEDS ORDERED: LORazepam 2 MG TAB PO PRN (16:05)
[2020-10-16] MEDS ORDERED: MULTIVITAMIN -ADULT INJECTION 10 ML, THIAMINE INJection 100 MG, FOLIC ACID 1 MG in NS 1... IV ONE ×3 (16:05→18:00)
--- NOTE | 2020-10-16 16:46 | HPE ---
HISTORY AND PHYSICAL DATE OF ADMISSION: 10/16/2020 PRIMARY CARE PHYSICIAN: Dr. Pelon Elam CHIEF COMPLAINT: Hepatic encephalopathy. HISTORY: Mak Mendieta came to the emergency room for confusion. He has a history of cirrhosis, fairly advanced, secondary to alcoholic cirrhosis and hepatitis C with relapse. History is somewhat limited due to patient's encephalopathy. Most of the history is obtained from review of his office chart. He was supposed to be seen by [facility] gastrointestinal (GI) practice today. His mother called to cancel the appointment, and he was brought to the operating room, where he was found to have elevated ammonia level and clinical signs of encephalopathy. Denies cough, fever, chills, severe abdominal pain. He has a history of severe cirrhosis. He has had [address] [facility] in the last 2-1/2 months and at least two done at [facility]. His local equities analyst appears to be through the [facility]. It looks like his last upper endoscopy was done 07/22/2016. Grade 2 varices were found. Five were successfully banded. He is on carvedilol for variceal prophylaxis, but I do not see where he has had another endoscopy since then. Incidentally, he also had a tubular adenoma with fragments of a sessile serrated polyp removed at that time as well. Early this year he fell. He sustained a burst fracture of T11. He was transferred to [facility]. It looks like he was in [facility] for awhile. He carries a diagnosis of hypertension and is followed by [facility] for that. He is a chronic alcoholic. He says he has "cut down" to six to seven beers per day. He has hepatitis C, genotype 2B. He was treated with Peg-Intron/ribavirin 07/12/2008 through December 2008 with a relapse January 2009. History of intravenous (IV) drug abuse in the 1980s, hyperlipidemia, asymptomatic gallstones, chronic lower extremity edema. He has had severe scrotal edema bad enough that he has had to see urology, most recently July 2020. He did see Dr. Van Osorio 07/31/2016 for hepatitis C with cirrhosis. She notes he had an upper GI bleed May 2016 and was transferred to [facility]. She notes he was seen by the [place] [facility] once in the past. Missed a followup appointment. Has not been back. Dr. Osorio's notes from that appointment indicates that he was cured from hepatitis C but at that point had severe cirrhosis with a model for end-stage liver disease (MELD) score of 13, and that was in 2016. I do not see where he has had routine surveillance for hepatocellular carcinoma that I have access to. Most recent alpha-fetoprotein was from December 2015. ( He was followed by a different primary care provider until very recently.) He looks to develop some chronic kidney disease. His baseline creatinine used to be around 1.0 as recently as December 2019. Then in July 2020 his creatinine was 1.7 and has been around that since that time. Also looks that he did not receive albumin with the paracenteses that were performed until Dr. Elam assumed his primary care recently. He did receive albumin with his 09/21/2020 paracentesis. His chart review shows a diagnosis of type 2 diabetes. He had a hemoglobin A1c of 10.1 on 06/30/2017. His hemoglobin A1c's have been 5.2 and 6.0 over the last 12 months. No medical therapy. History of gastroesophageal reflux disease (GERD) without esophagitis, hyperlipidemia, vitamin D deficiency, umbilical hernia, left inguinal hernia, history of tobacco abuse. MEDICATIONS: At his 09/12/2011 visit he was taking: - spironolactone 25 mg two tablets daily - Protonix 40 mg twice a day - lactulose 30 mL three times a day (patient is not sure when the last time was he took this) - Nicoderm patch - carvedilol 12.5 mg twice a day - torsemide 20 mg daily FAMILY HISTORY: Father of hypertension, type 2 diabetes with unspecified malignancy. Father has a history of cancer, unspecified site. SOCIAL HISTORY: Smokes half a pack a day. Averages around seven beers per day. Currently unemployed. 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 He is a . One of his children lives with him. ALLERGIES: None known. REVIEW OF SYSTEMS: Difficult to obtain. Denies any loose stool, rectal bleeding, epistaxis, hematemesis, fever, chills, abdominal pain. PHYSICAL EXAMINATION: Blood pressure 124/63, pulse 73, respiratory rate 17, 100% oxygen saturation. GENERAL APPEARANCE: Is chronically ill appearing and jaundiced. Dentition in poor repair. Mucous membranes look a little dry. NECK: Supple. LUNGS: Clear. HEART: Regular rate and rhythm without murmur. ABDOMEN: Soft, slightly distended, nontender. Ascites was palpable. EXTREMITIES: Peripheral edema 1+. No clubbing or cyanosis. NEUROLOGIC: Asterixis is present. He is confused. He has poor recall of recent events. He is not quite sure on the month or the date. He moves arms and legs with equal strength. There are no coordination problems. Strength is equal in all extremities. SKIN: Shows a lot of excoriations on the upper extremities. No areas of cellulitis. He does have an umbilical hernia that is easily reducible. LABORATORY DATA: Sodium 140, potassium 5.1, BUN 24, creatinine 1.7, glucose 134. He has an osmolality that was checked and was 298. Bilirubin is 1.5. Ammonia 125. TSH 2.4. White count 5, hemoglobin 8.6 (baseline is around 10), platelets 33,000. No INR has been ordered. Baseline looks to be around 1.3. COVID screen is negative. IMPRESSION: 1. Hepatic encephalopathy. Patient will be admitted to the medical bed. He looks a little dehydrated. We will give him a banana bag at a moderate rate. I have ordered rifaximin and lactulose, daily ammonia levels, though he should mostly be followed clinically. 2. Cirrhosis, severe with encephalopathy, recurrent ascites. Do want to note his hepatitis C is considered cured. His office notes he "relapsed" January 2017, but on 01/18/2020 he had hepatitis C viral testing done, and no hepatitis C was detected., so he is considered cured. His alcoholism is what is progressing his cirrhosis. He apparently has not been to the liver transplant center since a single visit in 2017. He has not had a routine surveillance for hepatocellular carcinoma that I can see, nor has he kept his appointments with gastroenterology. 3. History of varices. I will consult gastroenterology. I think he should get an upper endoscopy while he is here, as he apparently has not had one since 2017. His hemoglobin is down from baseline. Does not appear to be actively bleeding. I will do serial complete blood counts (CBCs), and we will also check stool for occult blood. Continue his carvedilol for variceal bleeding prophylaxis. 4. History of hypertension. Continue his carvedilol. 5. Recurrent ascites. Hold off his diuretics for now while he is getting hydrated. 6. Chronic kidney disease with question acute kidney injury. His creatinine took a jump from his baseline to his current level in July. I am not sure what happened during that time. It was after his burst fracture. Maybe he had exposure on nonsteroidals; that is just a hypothesis. Renal ultrasound will be ordered. 7. Reported history of diabetes. He is on no medicines. His last hemoglobin A1c was normal the last two times it was checked. We will just follow his blood pressure off chemistry profile. I do not think he needs fingersticks and coverage, etc. 8. Code status. He is in no condition to determine a code status at this time. Once his encephalopathy has cleared, I will discuss this further with him. 9. History of T11 burst fracture. He has a history of vitamin D deficiency. Recheck that level. He should probably have a DEXA scan done as an outpatient. YESENIA
[2020-10-16 16:50] VITALS: BP 122/80
[2020-10-16 17:23] VITALS: BP 122/80
[2020-10-16 18:06] LABS: HEMATOCRIT 28.5 % (42.0-52.0); HEMOGLOBIN 9.5 g/dl (13.5-17.5); MEAN CORPUSCULAR HEMOGLOBIN 30.2 pg (27.0-33.0); MEAN CORPUSCULAR HGB CONC 33.3 g/dl (32.0-36.5); MEAN CORPUSCULAR VOLUME 90.5 fl (80.0-96.0); PLATELET COUNT, AUTOMATED 35 10^3/uL (150-450); RED BLOOD COUNT 3.15 10^6/uL (4.30-6.10); WHITE BLOOD COUNT 4.6 10^3/uL (4.0-10.0)
[2020-10-16 18:18] LABS: INR 1.35; PROTHROMBIN TIME 17.1 SECONDS (12.7-14.5)
--- NOTE | 2020-10-16 18:18 | REP ---
INDICATION: BARTOLO COMPARISON: CT dated 06/03/2016 TECHNIQUE: Real time marroquin scale ultrasound examination using curved array transducer. FINDINGS: Bilateral kidneys are normal in contour, size, echogenicity, and reniform shape. No hydronephrosis, nephrolithiasis, cystic or renal mass lesion. No perinephric fluid collection. Right kidney measures 9.8 x 4.9 x 4.8 cm. Left kidney measures 11.2 x 4.3 x 3.6 cm. Bladder is grossly unremarkable. IMPRESSION: 1. Normal renal ultrasound. <Electronically signed by Kiko Barth > 10/16/20 [id number]
[2020-10-16] MEDS: THIAMINE 100 MG TAB PO SCH (18:44)
[2020-10-16] MEDS: LACTULOSE 20 GM/30 ML SYRUP UD PO SCH ×2 (18:44→23:36)
[2020-10-16 19:02] LABS: HEMOGLOBIN A1c 5.4 %
--- NOTE | 2020-10-16 20:46 | ECGEPIP ---
[facility] - ED Test Date: 2020-10-16 Pat Name: ADDISON ZUÑIGA Department: Room: - Gender: Male Sole Skiver: CATHY : 1960 Requested By: Bonnie Dean Order Number: [id number] Reading MD: Cecilio Aguilera Measurements Intervals [place] Rate: 68 P: -3 NE: 162 QRS: -10 QRSD: 88 T: -10 QT: 398 QTc: 423 Interpretive Statements Normal sinus rhythm rate decreased from tracing done 06-03-16 Electronically Signed on 10-16-2020 20:45:55 EDT by Cecilio Aguilera
[2020-10-16] MEDS: PANTOPRAZOLE 40MG TAB (PROTONIX) PO SCH (21:35)
[2020-10-16] MEDS: CARVedilol 12.5 MG TAB PO SCH (21:36)
[2020-10-16 22:00] VITALS: BP 122/80
[2020-10-17] MEDS: LACTULOSE 20 GM/30 ML SYRUP UD PO SCH ×4 (05:42→23:45)
[2020-10-17 06:00] VITALS: BP 114/68
[2020-10-17 07:02] LABS: ALBUMIN 1.8 GM/DL (3.2-5.2); BILIRUBIN,TOTAL 1.6 MG/DL (0.2-1.0); CALCIUM LEVEL 8.3 MG/DL (8.5-10.1); CREATININE FOR GFR 1.41 MG/DL (0.70-1.30); GLOMERULAR FILTRATION RATE 54.8 (>56); MAGNESIUM LEVEL 1.7 MG/DL (1.8-2.4); POTASSIUM SERUM 3.5 MEQ/L (3.5-5.1); TOTAL PROTEIN 6.3 GM/DL (6.4-8.2)
[2020-10-17] MEDS: FOLIC ACID 1 MG TAB PO SCH (08:57)
[2020-10-17] MEDS: CARVedilol 12.5 MG TAB PO SCH ×2 (08:57→20:04)
[2020-10-17] MEDS: MULTIVITAMINS/MINERALS THERAP 1 TAB PO SCH (08:57)
[2020-10-17] MEDS: THIAMINE 100 MG TAB PO SCH ×2 (08:57→20:03)
[2020-10-17] MEDS: PANTOPRAZOLE 40MG TAB (PROTONIX) PO SCH ×2 (08:57→20:03)
[2020-10-17 10:00] VITALS: BP 116/66
--- NOTE | 2020-10-17 10:41 | IPN ---
PROGRESS NOTE DATE: 10/17/2020 SUBJECTIVE: Mak is a little better than yesterday. Apparently he has had several stools. I do not think he has used the lactulose consistently at home. He is admitted with hepatic encephalopathy, history of ongoing alcohol abuse, history of hepatitis C which is cured based on lab testing by Dr. Osorio in 2017. OBJECTIVE: VITAL SIGNS: Blood pressure 114/68, pulse 72, respiratory rate 20, 98% O2 saturation. GENERAL APPEARANCE: He is sleeping but awoke easily, still seems a little confused. HEENT: Sclerae are icteric. Nutrition looks poor. LUNGS: Clear. HEART: Regular rate and rhythm. ABDOMEN: Soft. There is ascites present, a small amount. EXTREMITIES: He has 1+ peripheral edema. NEUROLOGIC: Asterixis is still present. LABORATORY DATA: White count 4.9, hemoglobin is up to 9.5, platelets are 35,000 which is stable. Sodium 141, potassium 3.5, BUN 21, creatinine 1.4, glucose 112. Magnesium 1.7. Bilirubin 1.6. Alpha fetoprotein 2.6. Renal ultrasound was unrevealing. No obstruction. ASSESSMENT AND PLAN: 1. Hepatic encephalopathy secondary to alcoholic cirrhosis. Continue his rifaximin and MiraLax. His ammonia is slightly improved. We will check this again tomorrow. 2. Cirrhosis, severe. His MELD score is 15. This puts him at a 6% three month mortality rate. He has been previously referred for a liver transplant consideration but only went for one appointment and that was about five years ago. He has a new primary care provider and he can discuss revisiting referral to [facility] outpatient appointment. 3. History of esophageal varices. His hemoglobin is improved. He is not actively bleeding. I discussed the case with Dr. Topete, his filling hauler weaving. I was hoping he could have an EGD in the hospital as he has not had surveillance of his varices since 2017 but that cannot be accommodated on the schedule so will have to be done as an outpatient. Serial CBCs have been ordered. Carvedilol for variceal bleeding prophylaxis. 4. Chronic kidney disease. Renal function is mildly improved. Some of this might be some dehydration. A renal ultrasound showed no obstruction. 5. Recurrent ascites. He is off his diuretics for now with improved renal function. However, he is probably going to reaccumulate ascites and I will be stopping his IV fluids today and probably restarting his diuretics tomorrow. 6. Reported history of diabetes. Last few hemoglobin A1c's have been normal. There is no sign of any active diabetes at present. He had one elevated hemoglobin A1c many years ago. 7. History of T12 burst fracture. Should have a DEXA scan as an outpatient. His vitamin D level has been low in the past. We will be rechecking this. 8. Alcoholism. The importance of abstaining from alcohol has been discussed. He is on thiamine, multivitamin, as well as CIWA protocol. We discussed with PFS this morning during care rounds about offering some alcohol rehab information.
[2020-10-17 11:16] LABS: TOTAL 25(OH) VITAMIN D 29.5 NG/ML (30.0-100.0)
[2020-10-17] MEDS: MAGNESIUM OXIDE 400MG TAB (MAG-OX) PO SCH ×2 (11:27→20:04)
[2020-10-17 14:00] VITALS: BP 118/65
[2020-10-17 18:00] VITALS: BP 110/62
[2020-10-17 20:00] VITALS: BP 126/68
[2020-10-17 21:00] VITALS: BP 126/68
[2020-10-18] VITALS (7 sets, daily range): BP systolic 116–147; BP diastolic 66–90
[2020-10-18] MEDS: LACTULOSE 20 GM/30 ML SYRUP UD PO SCH ×3 (06:46→18:01)
[2020-10-18] MEDS: PANTOPRAZOLE 40MG TAB (PROTONIX) PO SCH ×2 (08:11→20:01)
[2020-10-18] MEDS: MAGNESIUM OXIDE 400MG TAB (MAG-OX) PO SCH ×2 (08:11→20:01)
[2020-10-18] MEDS: MULTIVITAMINS/MINERALS THERAP 1 TAB PO SCH (08:11)
[2020-10-18] MEDS: CARVedilol 12.5 MG TAB PO SCH ×2 (08:12→20:02)
[2020-10-18] MEDS: THIAMINE 100 MG TAB PO SCH ×2 (08:12→20:01)
[2020-10-18] MEDS: FOLIC ACID 1 MG TAB PO SCH (08:12)
[2020-10-18 08:53] LABS: BILIRUBIN,TOTAL 2.1 MG/DL (0.2-1.0); CALCIUM LEVEL 8.4 MG/DL (8.5-10.1); CREATININE FOR GFR 1.33 MG/DL (0.70-1.30); GLOMERULAR FILTRATION RATE 58.6 (>56); MAGNESIUM LEVEL 1.7 MG/DL (1.8-2.4); POTASSIUM SERUM 3.6 MEQ/L (3.5-5.1); TOTAL PROTEIN 6.8 GM/DL (6.4-8.2)
--- NOTE | 2020-10-18 12:00 | REP ---
INDICATION: ascites COMPARISON: No pertinent prior examination TECHNIQUE: Real time marroquin scale ultrasound examination using curved array transducer. FINDINGS: Generalized limited ultrasound examination through the abdomen and pelvis demonstrates small to moderate amount of ascites insufficient for paracentesis. IMPRESSION: Relatively small to moderate amount of ascites insufficient for paracentesis. <Electronically signed by Kiko Barth > 10/18/20 1150
[2020-10-18] MEDS: SPIRONOLACTONE 25 MG TAB PO SCH (12:22)
[2020-10-18] MEDS: TORSEMIDE 20 MG TAB PO SCH (12:22)
--- NOTE | 2020-10-18 13:31 | IPN ---
PROGRESS NOTE DATE: 10/18/2020 Mak is seen on [facility] [place]. He is less encephalopathic. None of his labs were back by the time of rounds, but they have since returned. His ammonia level is down to 42, which is congruent with his clinical findings. He is going for a paracentesis today. His daughter called the nursing staff and indicates that the patient had called and said that he did not plan to be compliant with his lactulose after discharge. It was explained to both Mak and his daughter that the lactulose is instrumental in clearing ammonia from his system, and the mechanisms is through frequent loose bowel movements, preferably three to four per day. I doubt he will remain compliant with this. PHYSICAL EXAMINATION: VITAL SIGNS: Stable. No fever. LUNGS: Clear. HEART: Regular rate and rhythm. ABDOMEN: Soft, distended with ascites (paracentesis pending today). Peripheral. Edema 1+. LABORATORY DATA: BUN is down to 17, creatinine 1.3, glucose 127. Ammonia is down to 42. IMPRESSION: 1. Hepatic encephalopathy, resolved with compliance with _Lactulose. Unfortunately, compliance after discharge will probably be poor with concern this will lead to readmission. 2. Cirrhosis, end stage. His model for end-stage liver disease (MELD) score was 15. Consideration for referral to transplant center as an outpatient. Home health nursing has been ordered upon discharge. 3. Alcoholism. Patient and family services (PFS) will discuss recovery center with him for outpatient alcohol rehabilitation. Home safety evaluation today. Anticipate discharge tomorrow. I am restarting his diuretics, spironolactone 50 mg every night, torsemide 20 mg daily today. MTDD
[2020-10-19] MEDS: LACTULOSE 20 GM/30 ML SYRUP UD PO SCH ×3 (00:23→12:46)
[2020-10-19 02:00] VITALS: BP 126/77
[2020-10-19 06:00] VITALS: BP 120/78
[2020-10-19 06:26] VITALS: BP 120/73
[2020-10-19] MEDS: SPIRONOLACTONE 25 MG TAB PO SCH (08:19)
[2020-10-19 08:20] VITALS: BP 120/73
[2020-10-19] MEDS: MAGNESIUM OXIDE 400MG TAB (MAG-OX) PO SCH (08:20)
[2020-10-19] MEDS: FOLIC ACID 1 MG TAB PO SCH (08:20)
[2020-10-19] MEDS: PANTOPRAZOLE 40MG TAB (PROTONIX) PO SCH (08:20)
[2020-10-19] MEDS: THIAMINE 100 MG TAB PO SCH (08:20)
[2020-10-19] MEDS: CARVedilol 12.5 MG TAB PO SCH (08:20)
[2020-10-19] MEDS: TORSEMIDE 20 MG TAB PO SCH (08:20)
[2020-10-19] MEDS: MULTIVITAMINS/MINERALS THERAP 1 TAB PO SCH (08:20)
[2020-10-19] MEDS ORDERED: XIFA200T2 PO (09:34)
[2020-10-19 10:00] VITALS: BP 124/81
[2020-10-19 10:56] LABS: CREATININE FOR GFR 1.42 MG/DL (0.70-1.30)
[2020-10-19 10:57] LABS: ALBUMIN 1.9 GM/DL (3.2-5.2); BILIRUBIN,TOTAL 1.5 MG/DL (0.2-1.0); CALCIUM LEVEL 8.2 MG/DL (8.5-10.1); GLOMERULAR FILTRATION RATE 54.3 (>56); MAGNESIUM LEVEL 1.7 MG/DL (1.8-2.4); POTASSIUM SERUM 3.6 MEQ/L (3.5-5.1); TOTAL PROTEIN 6.4 GM/DL (6.4-8.2)
--- NOTE | 2020-10-19 11:16 | DSES ---
DISCHARGE SUMMARY DATE OF ADMISSION: 10/16/2020 DATE OF DISCHARGE: 10/19/2020 PRINCIPAL DIAGNOSIS: Hepatic encephalopathy. SECONDARY DIAGNOSES: 1. End-stage liver disease secondary to alcoholic cirrhosis. 2. Recurrent ascites requiring therapeutic paracentesis. 3. Alcoholism. 4. Noncompliance with medical therapy. 5. History of esophageal varices, last endoscopy 2017. 6. Chronic kidney disease with recent acute kidney injury. 7. Remote history of type-2 diabetes. 8. History of recent T11 burst fracture. HISTORY: Mak Mendieta is a 59-year-old alcoholic with cirrhosis who presented with hepatic encephalopathy secondary to noncompliance with lactulose. For details see the history and physical on admission. HOSPITAL COURSE: He was admitted to a medical bed. He was placed on rifaximin and scheduled dose of lactulose. He revealed he has not been taking his lactulose as he does not like the frequent bowel movements that it provides. With forced compliance, his encephalopathy cleared within a few days. Ammonia level fell and on the day of discharge he has no asterixis. He is fully alert, conversant and his memory is back to baseline. He had a scheduled paracentesis for yesterday but he did not have sufficient ascites for a safe procedure so it was not performed. I spoke with his daughter Charlotte at length today. She understands the mechanism of treatment of hepatic encephalopathy, that it requires compliance with lactulose and necessitates frequent bowel movements. She understands we are adding rifaximin, hoping he has insurance coverage for this. She also understands his prognosis is poor. His MELD score is 15. His three month short-term prognosis is poor. His senior living prognosis is worse. The importance of strict abstaining from alcohol has been reviewed and he can discuss being referred back to the [facility] when he sees Dr. Elam in followup. He has not had an upper endoscopy since 2017. I called [facility] and asked if they would do an upper endoscopy while he was in the hospital. They declined seeing him. This will have to be done as an outpatient. On the day of discharge, his labs are pending but clinically he is ready for discharge. His vital signs are stable. He has no asterixis. He is jaundiced. Lungs are clear. Abdomen has small amount of ascites. He has no peripheral edema. Most recent ammonia level was 42. It was 125 on admission. Yesterday his sodium was 138, potassium 3.6, BUN 17, creatinine 1.3. Admission creatinine was 1.74. Bilirubin was 2.1. Vitamin D level was 29. Alpha fetoprotein 2.6. TSH normal at 2.4. White count 4.9, hemoglobin 9.5 which is stable and platelets were stable at 35. DISPOSITION: He is discharged home improved, in stable condition. He and I had a long talk today about compliance with lactulose. We discussed mechanism of action and requirement for goal of three to four loose bowel movements per day. The importance of abstaining from alcohol was discussed and PFS will refer him to outpatient alcohol prior to discharge. We discussed this on care rounds yesterday. He will follow up with the primary care provider in a week. He will see Dr. Topete as an outpatient for surveillance upper endoscopy. He is on a 2 gm sodium, 1800 mL per day fluid restriction. DISCHARGE MEDICATIONS: 1. Lactulose 30 mL three times a day titrating for three to four loose stools per day. 2. Carvedilol 12.5 mg twice a day. 3. Protonix 40 mg twice a day. 4. Spironolactone 50 mg once daily at bedtime. 5. Torsemide 20 mg once daily at bedtime. 6. Rifaximin 400 mg twice a day.
== END 2020-10-19 15:30 | disposition home health service (06) | DRG 279 ==
LOC: M ED 12:04 → EDBD 12:04 → M MS5PR 16:01 → ENRESERV 16:15 → M ED 16:31
PROVIDERS: ADMIT Family Medicine; ATTEND Family Medicine
DX: K72.90 Hepatic failure, unspecified without coma (principal); N17.9 Acute kidney failure, unspecified; E11.22 Type 2 diabetes mellitus with diabetic chronic kidney disease; I12.9 Hypertensive chronic kidney disease with stage 1 through stage 4 chronic kidney disease, or unspecified chronic kidney disease; N18.9 Chronic kidney disease, unspecified; F10.20 Alcohol dependence, uncomplicated; F17.210 Nicotine dependence, cigarettes, uncomplicated; Z91.14 Patient's other noncompliance with medication regimen; Z20.822 Contact with and (suspected) exposure to COVID-19; Z79.899 Other long term (current) drug therapy; K70.31 Alcoholic cirrhosis of liver with ascites; K21.9 Gastro-esophageal reflux disease without esophagitis; I85.00 Esophageal varices without bleeding

== ENCOUNTER → 2020-10-26 | Outpatient (CLI) | payer OTHER ==
[~2020-10-26] MED LIST changes: +CARV12.5 PO; +XIFA200T2 PO
[2020-10-26 11:40] VITALS: BP 126/62
--- NOTE | 2020-10-26 17:03 | REP ---
INDICATION: ASCITES. COMPARISON: None. TECHNIQUE: The procedure was performed under the direct supervision of Dr. Craig. The risks and benefits of the procedure were explained to the patient and informed consent was obtained. The largest pocket of fluid was localized in the left flank using ultrasound guidance. The skin was prepped and draped in a sterile fashion. 8 mL of 1% lidocaine was used as a local anesthetic. Using ultrasound guidance, an 8-Citizen Of [place] multi side-hole catheter was inserted using trocar technique.5600 mL of yellow fluid was withdrawn and discarded. Estimated blood loss: Less than 1 mL The patient tolerated the procedure well and there were no immediate complications. After the appropriate amount of monitored convalescence, the patient was discharged from the department. FINDINGS: None IMPRESSION: Ultrasound-guided paracentesis [id number] mL of yellow fluid. <Electronically signed by Kermit Kent > 10/26/20 1614 <Electronically signed by Ernie Craig > 10/26/20 [id number]
== END ==
LOC: M IRPRO 09:28
PROVIDERS: ATTEND Internal Medicine
DX: K70.31 Alcoholic cirrhosis of liver with ascites (principal)

== ENCOUNTER → 2020-11-02 | Outpatient (CLI) | payer OTHER ==
[~2020-11-02] MED LIST changes: +HYDR-3363 PO; +SODIUM BICARBONATE 8.4% INJ 50MEQ 50 ML VIAL As Ordered ONE
[2020-11-02 11:44] VITALS: BP 113/61
--- NOTE | 2020-11-02 15:16 | REP ---
INDICATION: ASCITIES The patient has a history of ascites COMPARISON: None. TECHNIQUE: The procedure was performed by DANETTE Ruelas, under the direct supervision of Dr. Craig The risks and benefits of the procedure were explained to the patient and an informed consent was obtained both verbally and written. Directly prior to the start of the procedure a formal time-out was completed in the procedure room. The largest pocket of fluid was localized in the left flank using ultrasound guidance. The skin was prepped and draped in a sterile fashion. Eleven ML of buffered lidocaine was used as a local anesthetic. An 8-Kinyarwanda multi side-hole catheter was inserted using trocar technique. FINDINGS: 3100 mL of yellow ascites was removed and discarded. The patient tolerated the procedure well and there were no immediate complications. After the appropriate amount of monitored convalescence, the patient was discharged from the department. IMPRESSION: Ultrasound-guided paracentesis with removal of 3100 mL of yellow ascites. <Electronically signed by Lucila Mcneill > 11/02/20 1506 <Electronically signed by Ernie Craig > 11/02/20 151
== END ==
LOC: M IRPRO 09:41
PROVIDERS: ATTEND Family Medicine
DX: K70.31 Alcoholic cirrhosis of liver with ascites (principal)

== ENCOUNTER → 2020-11-09 | Outpatient (CLI) | payer OTHER ==
[2020-11-09 10:48] VITALS: BP 121/60
--- NOTE | 2020-11-09 17:00 | REP ---
INDICATION: ASCITES The patient has a history of ascites COMPARISON: None. TECHNIQUE: The procedure was performed by DANETTE Ruelas, under the direct supervision of Dr. Craig The risks and benefits of the procedure were explained to the patient and an informed consent was obtained both verbally and written. Directly prior to the start of the procedure a formal time-out was completed in the procedure room. The largest pocket of fluid was localized in the right flank using ultrasound guidance. The skin was prepped and draped in a sterile fashion. Eleven ML of buffered lidocaine was used as a local anesthetic. An 8-Korean multi side-hole catheter was inserted using trocar technique. FINDINGS: 3750 mL of yellow ascites was removed and discarded. The patient tolerated the procedure well and there were no immediate complications. After the appropriate amount of monitored convalescence, the patient was discharged from the department. IMPRESSION: Ultrasound-guided paracentesis with removal of 3750 mL of yellow ascites. <Electronically signed by Lucila Mcneill > 11/09/20 1552 <Electronically signed by Ernie Craig > 11/09/20 [id number]
== END ==
LOC: M IRPRO 09:53
PROVIDERS: ATTEND Family Medicine
DX: K70.31 Alcoholic cirrhosis of liver with ascites (principal)

== ENCOUNTER → 2020-11-15 | Outpatient (REF) | payer OTHER ==
[~2020-11-15] MED LIST changes: +MOTR200T44 PO; -SODIUM BICARBONATE 8.4% INJ 50MEQ 50 ML VIAL As Ordered ONE
[2020-11-15 16:03] LABS: BASO # 0.1 10^3/uL (0.0-0.2); BASO % 1.3 % (0.0-1.0); EOS # 0.3 10^3/uL (0.0-0.5); EOS % 5.3 % (0.0-3.0); HEMATOCRIT 28.2 % (42.0-52.0); HEMOGLOBIN 9.2 g/dl (13.5-17.5); LYMPH # 0.7 10^3/uL (1.5-5.0); LYMPH % 11.4 % (24.0-44.0); MEAN CORPUSCULAR HEMOGLOBIN 29.8 pg (27.0-33.0); MEAN CORPUSCULAR HGB CONC 32.6 g/dl (32.0-36.5); MEAN CORPUSCULAR VOLUME 91.3 fl (80.0-96.0); MONO # 0.8 10^3/uL (0.0-0.8); NEUTROPHILS # 4.4 10^3/uL (1.5-8.5); NEUTROPHILS % 68.4 % (36.0-66.0); RED BLOOD COUNT 3.09 10^6/uL (4.30-6.10); WHITE BLOOD COUNT 6.4 10^3/uL (4.0-10.0)
[2020-11-15 16:05] LABS: PLATELET COUNT, AUTOMATED 53 10^3/uL (150-450)
[2020-11-15 16:28] LABS: BILIRUBIN,TOTAL 1.4 MG/DL (0.2-1.0); CALCIUM LEVEL 8.3 MG/DL (8.8-10.2); CREATININE FOR GFR 1.96 MG/DL (0.70-1.30); GLOMERULAR FILTRATION RATE 37.3 (>49); POTASSIUM SERUM 3.6 MEQ/L (3.5-5.1); TOTAL PROTEIN 6.8 GM/DL (6.4-8.2)
== END ==
LOC: M SFHCCLAY 13:12
PROVIDERS: ATTEND Family Medicine
DX: K72.90 Hepatic failure, unspecified without coma (principal)

== ENCOUNTER → 2020-11-16 | Outpatient (CLI) | payer OTHER ==
[~2020-11-16] MED LIST changes: +SODIUM BICARBONATE 8.4% INJ 50MEQ 50 ML VIAL As Ordered ONE
[2020-11-16 11:20] VITALS: BP 118/60
--- NOTE | 2020-11-16 14:29 | REP ---
INDICATION: ASCITES The patient has a history of ascites COMPARISON: None. TECHNIQUE: The procedure was performed by DANETTE Ruelas, under the direct supervision of Dr. Craig The risks and benefits of the procedure were explained to the patient and an informed consent was obtained both verbally and written. Directly prior to the start of the procedure a formal time-out was completed in the procedure room. The largest pocket of fluid was localized in the left flank using ultrasound guidance. The skin was prepped and draped in a sterile fashion. Eleven ML of buffered lidocaine was used as a local anesthetic. An 8-Serbian multi side-hole catheter was inserted using trocar technique. FINDINGS: 5500 mL of clear yellow ascites was removed and discarded. The patient tolerated the procedure well and there were no immediate complications. After the appropriate amount of monitored convalescence, the patient was discharged from the department. IMPRESSION: Ultrasound-guided paracentesis with removal of 5500 mL of yellow ascites. <Electronically signed by Lucila Mcneill > 11/16/20 1149 <Electronically signed by Ernie Craig > 11/16/20 6802
== END ==
LOC: M IRPRO 10:02
PROVIDERS: ATTEND Internal Medicine
DX: K70.31 Alcoholic cirrhosis of liver with ascites (principal)

== ENCOUNTER → 2020-11-23 | Outpatient (CLI) | payer OTHER ==
[~2020-11-23] MED LIST changes: -SODIUM BICARBONATE 8.4% INJ 50MEQ 50 ML VIAL As Ordered ONE
[2020-11-23 09:04] VITALS: BP 113/71
--- NOTE | 2020-11-23 15:37 | REP ---
INDICATION: ASCITIES. COMPARISON: None. TECHNIQUE: The procedure was performed under the direct supervision of Dr. Guo. The risks and benefits of the procedure were explained to the patient and informed consent was obtained. The largest pocket of fluid was localized in the left flank using ultrasound guidance. The skin was prepped and draped in a sterile fashion. 6 mL of 1% lidocaine was used as a local anesthetic. An 8-Luxembourger multi side-hole catheter was inserted using trocar technique.4600 mL of yellow fluid was withdrawn and discarded. Estimated blood loss: Less than 1 mL The patient tolerated the procedure well and there were no immediate complications. After the appropriate amount of monitored convalescence, the patient was discharged from the department. FINDINGS: None IMPRESSION: Ultrasound-guided paracentesis [id number] mL of yellow fluid. <Electronically signed by Kermit Kent > 11/23/20 1518 <Electronically signed by Roderick Guo > 11/23/20 1535
== END ==
LOC: M IRPRO 08:33
PROVIDERS: ATTEND Family Medicine
DX: K70.31 Alcoholic cirrhosis of liver with ascites (principal)

== ENCOUNTER → 2020-11-30 | Outpatient (CLI) | payer OTHER ==
[~2020-11-30] MED LIST changes: +SODIUM BICARBONATE 8.4% INJ 50MEQ 50 ML VIAL As Ordered ONE
[2020-11-30 10:04] VITALS: BP 103/62
--- NOTE | 2020-11-30 16:18 | REP ---
INDICATION: ASCITES The patient has a history of ascites COMPARISON: None. TECHNIQUE: The procedure was performed by DANETTE Ruelas, under the direct supervision of Dr. Guo The risks and benefits of the procedure were explained to the patient and an informed consent was obtained both verbally and written. Directly prior to the start of the procedure a formal time-out was completed in the procedure room. The largest pocket of fluid was localized in the left flank using ultrasound guidance. The skin was prepped and draped in a sterile fashion. Eleven ML of buffered lidocaine was used as a local anesthetic. An 8-Burmese multi side-hole catheter was inserted using trocar technique. FINDINGS: 5500 mL of yellow ascites was removed and discarded. The patient tolerated the procedure well and there were no immediate complications. After the appropriate amount of monitored convalescence, the patient was discharged from the department. IMPRESSION: Ultrasound-guided paracentesis with removal of 5500 mL of yellow ascites. <Electronically signed by Lucila Mcneill > 11/30/20 1233 <Electronically signed by Roderick Guo > 11/30/20 0084
== END ==
LOC: M IRPRO 08:20
PROVIDERS: ATTEND Family Medicine
DX: K70.31 Alcoholic cirrhosis of liver with ascites (principal)

== ENCOUNTER → 2020-12-07 | Outpatient (CLI) | payer OTHER ==
[~2020-12-07] MED LIST changes: -SODIUM BICARBONATE 8.4% INJ 50MEQ 50 ML VIAL As Ordered ONE
[2020-12-07 09:50] VITALS: BP 111/62
[2020-12-07 10:42] LABS: HEMATOCRIT 30.3 % (42.0-52.0); HEMOGLOBIN 10.4 g/dl (13.5-17.5); MEAN CORPUSCULAR HEMOGLOBIN 30.1 pg (27.0-33.0); MEAN CORPUSCULAR HGB CONC 34.3 g/dl (32.0-36.5); MEAN CORPUSCULAR VOLUME 87.6 fl (80.0-96.0); RED BLOOD COUNT 3.46 10^6/uL (4.30-6.10); WHITE BLOOD COUNT 6.8 10^3/uL (4.0-10.0)
[2020-12-07 10:47] LABS: PLATELET COUNT, AUTOMATED 43 10^3/uL (150-450)
[2020-12-07 10:55] LABS: HEMOGLOBIN A1c 5.5 %
[2020-12-07 11:12] LABS: ALBUMIN 1.9 GM/DL (3.2-5.2); CALCIUM LEVEL 8.3 MG/DL (8.8-10.2); CREATININE FOR GFR 1.63 MG/DL (0.70-1.30); GLOMERULAR FILTRATION RATE 46.2 (>49); POTASSIUM SERUM 3.2 MEQ/L (3.5-5.1); THYROID STIMULATING HORMONE 1.62 uIU/ML (0.358-3.740); TOTAL PROTEIN 6.5 GM/DL (6.4-8.2)
--- NOTE | 2020-12-07 16:22 | REP ---
INDICATION: ASCITES. COMPARISON: None. TECHNIQUE: The procedure was performed under the direct supervision of Dr. Craig. The risks and benefits of the procedure were explained to the patient and informed consent was obtained. The largest pocket of fluid was localized in the right flank using ultrasound guidance. The skin was prepped and draped in a sterile fashion. 7 mL of 1% lidocaine was used as a local anesthetic. Using ultrasound guidance, an 8-Maltese multi side-hole catheter was inserted using trocar technique.3100 mL of chuyita colored fluid was withdrawn and discarded. Estimated blood loss: Less than 1 mL The patient tolerated the procedure well and there were no immediate complications. After the appropriate amount of monitored convalescence, the patient was discharged from the department. FINDINGS: None IMPRESSION: Ultrasound-guided paracentesis [id number] mL of chuyita colored fluid. <Electronically signed by Kermit Kent > 12/07/20 1605 <Electronically signed by Ernie Craig > 12/07/20 9532
== END ==
LOC: M IRPRO 09:10
PROVIDERS: ATTEND Family Medicine
DX: R18.8 Other ascites (principal); K72.90 Hepatic failure, unspecified without coma; E11.8 Type 2 diabetes mellitus with unspecified complications; I10 Essential (primary) hypertension

== ENCOUNTER → 2020-12-11 | Outpatient (POV) | payer OTHER ==
[~2020-12-11] VITALS: Ht 152.4 cm; Wt 78.1 kg
[2020-12-11 14:00] VITALS: BP 129/74
--- NOTE | 2020-12-13 12:16 | IRCOV ---
[facility] IR Consult Office Visit IR Consult Office Visit DATE: Dec 11, 2020 REASON FOR CONSULTATION/CHIEF COMPLAINT: Refractory ascites. HISTORY OF PRESENT ILLNESS: 60-year-old male with end-stage liver disease and refractory ascites, requiring weekly paracentesis, draining 3.5 L or more. Patient would like a permanent Pleurx drain placed so he can manage his ascites at home. Patient has history of hepatic encephalopathy and high ammonia levels, which makes him an undesirable candidate for TIPS procedure. Patient is on spironolactone 50 mg daily and torsemide 20 mg daily. Patient states he has not had any alcohol in a month and he is awaiting a liver transplant evaluation appointment. He does describe hematemesis which happened 5 years ago, he had variceal banding and he is scheduled to see GI for surveillance endoscopies. He denies any melena. ALLERGIES: Please see below. HOME MEDICATIONS: Please see below. PAST MEDICAL HISTORY: Hypertension GERD Alcohol abuse Hepatitis C Anxiety Hyperlipidemia IV drug use 1982 Elevated ammonia Multiple gallstones Tachycardia Ascites Alcoholic cirrhosis Scrotal edema PAST SURGICAL HISTORY: Left thumb laceration Variceal banding FAMILY HISTORY: Noncontributory. SOCIAL HISTORY: States he has not had any alcohol in a month. Currently smoking 3 a day. Denies drugs. REVIEW OF SYSTEMS: Otherwise negative. PHYSICAL EXAMINATION: VITAL SIGNS: Please see below. GENERAL APPEARANCE: Comfortable at rest. HEENT: No scleral icterus. RESPIRATORY: Normal breathing at rest. CARDIOVASCULAR: Normal rate. ABDOMEN: Distended. Shifting dullness. Nontender. Fluid tracking down to the scrotum with scrotal swelling. EXTREMITIES: Minimal pedal edema NEUROLOGICAL: Alert and oriented. PSYCHIATRIC: Appropriate to circumstance. LABORATORY DATA: 12/07/2020 hemoglobin 10.4 hematocrit 30.3 WBC 6.8 platelets 43 sodium 135 potassium 3.2 BUN 18 creatinine 1.63 GFR 46.2. Total bilirubin 2.0 AST 24 ALT 20 ALP 133. 10/16/2020 INR 1.35 Calculated sodium meld score is 20 Imaging: No recent pertinent imaging. ASSESSMENT/PLAN: 60-year-old male with end-stage liver disease and refractory ascites, is not a TIPS candidate due to his history of hepatic encephalopathy and elevated ammonia levels. However, I do agree that he may benefit from Pleurx placement for better management of his ascites at home. We discussed the risks and benefits of the procedure and patient would like to proceed. We have scheduled the patient for abdominal Pleurx placement. There may also be room to increase his diuretics, spironolactone up to 200 mg BID if tolerated and adding Lasix if appropriate. I spent 30 minutes reviewing patient's records and in consultation with the patient. Thank you for this referral. CC Dr. Elam CC Dr. Topete Allergies Coded Allergies: No Known Allergies (Unverified , 07/27/20) Home Medications Scheduled Carvedilol (Carvedilol), 12.5 MG PO BID, (Reported) Pantoprazole Sodium (Protonix), 40 MG PO BID, (Reported) Spironolactone (Spironolactone), 50 MG PO QHS, (Reported) Torsemide (Torsemide), 20 MG PO QHS, (Reported) Scheduled PRN Hydroxyzine HCl (Hydroxyzine HCl), 25 MG PO Q8HP PRN for ITCHING, (Reported) Ibuprofen (Motrin Ib), 200 MG PO Q6HP PRN for PAIN LEVEL 1-4, (Reported) Lactulose (Lactulose), 30 ML PO TID PRN for CONSTIPATION, (Reported) VS, I&O, 24H, Fishbone Vital Signs/I&O Vital Signs Date Time Temp Pulse Resp B/P (MAP) Pulse Ox O2 Delivery O2 Flow Rate FiO2 12/11/20 14:00 97.7 86 20 129/74 (92) 99 Room Air JUANITA CROCKETT MD Dec 13, 2020 12:16
== END ==
LOC: M IRPOV 13:51
PROVIDERS: ATTEND Radiology Diagnostic Radiology
DX: K72.90 Hepatic failure, unspecified without coma (principal); R18.8 Other ascites; Z79.899 Other long term (current) drug therapy

== ENCOUNTER → 2020-12-14 | Outpatient (CLI) | payer OTHER ==
[2020-12-14 10:11] VITALS: BP 120/64
--- NOTE | 2020-12-14 16:22 | REP ---
INDICATION: ASCITES The patient has a history of ascites COMPARISON: None. TECHNIQUE: The procedure was performed by DANETTE Grace, under the direct supervision of Dr. Craig The risks and benefits of the procedure were explained to the patient and an informed consent was obtained both verbally and written. Directly prior to the start of the procedure a formal time-out was completed in the procedure room. The largest pocket of fluid was localized in the right lower quadrant using ultrasound guidance. The skin was prepped and draped in a sterile fashion. Ten ML of 1% lidocaine 10 mg/ml was used as a local anesthetic. An 8-St Helenian multi side-hole catheter was inserted using trocar technique. FINDINGS: Technically successful paracentesis yielding 4150 mL of fluid. The patient tolerated the procedure well and there were no immediate complications. After the appropriate amount of monitored convalescence, the patient was discharged from the department. IMPRESSION: Technically successful paracentesis yielding 4150 mL of fluid. <Electronically signed by Sophia Avila > 12/14/20 1114 <Electronically signed by Ernie Craig > 12/14/20 8019
== END ==
LOC: M IRPRO 09:06
PROVIDERS: ATTEND Family Medicine
DX: K70.31 Alcoholic cirrhosis of liver with ascites (principal)

== ENCOUNTER → 2020-12-14 | Outpatient (CLI) | payer OTHER ==
[2020-12-14 11:52] LABS: BASO # 0.1 10^3/uL (0.0-0.2); EOS # 0.2 10^3/uL (0.0-0.5); EOS % 3.9 % (0.0-3.0); HEMATOCRIT 30.2 % (42.0-52.0); HEMOGLOBIN 9.8 g/dl (13.5-17.5); LYMPH # 0.6 10^3/uL (1.5-5.0); LYMPH % 10.5 % (24.0-44.0); MEAN CORPUSCULAR HEMOGLOBIN 29.7 pg (27.0-33.0); MEAN CORPUSCULAR HGB CONC 32.5 g/dl (32.0-36.5); MEAN CORPUSCULAR VOLUME 91.5 fl (80.0-96.0); MONO # 0.7 10^3/uL (0.0-0.8); MONO % 11.3 % (2.0-8.0); NEUTROPHILS # 4.2 10^3/uL (1.5-8.5); NEUTROPHILS % 72.6 % (36.0-66.0); WHITE BLOOD COUNT 5.8 10^3/uL (4.0-10.0)
[2020-12-14 11:53] LABS: INR 1.25; PROTHROMBIN TIME 16.2 SECONDS (12.7-14.5)
[2020-12-14 11:59] LABS: PLATELET COUNT, AUTOMATED 55 10^3/uL (150-450)
[2020-12-14 12:11] LABS: ALBUMIN 2.1 GM/DL (3.2-5.2); BILIRUBIN,DIRECT 0.6 MG/DL (0.0-0.2); BILIRUBIN,TOTAL 1.1 MG/DL (0.2-1.0); CALCIUM LEVEL 8.7 MG/DL (8.8-10.2); CREATININE FOR GFR 1.74 MG/DL (0.70-1.30); GLOMERULAR FILTRATION RATE 42.8 (>49); POTASSIUM SERUM 3.7 MEQ/L (3.5-5.1); TOTAL PROTEIN 6.5 GM/DL (6.4-8.2)
== END ==
LOC: M LAB 09:09
PROVIDERS: ATTEND Internal Medicine Gastroenterology
DX: K70.31 Alcoholic cirrhosis of liver with ascites (principal)

== ENCOUNTER → 2020-12-19 | Outpatient (CLI) | payer OTHER ==
[~2020-12-19] MED LIST changes: +PANT40TA29 PO; +POTA1TAB23 PO
--- NOTE | 2020-12-19 10:14 | REP ---
INDICATION: PORTAL VEIN THROMBOSIS; EVAL PORTAL SYSTEM. COMPARISON: 10/18/2020. CT 06/03/2016. TECHNIQUE: Real-time sonographic evaluation of ABDOMEN PERFORMED, WITH DUPLEX DOPPLER EVALUATION OF PORTAL VASCULATURE. FINDINGS: Stones and sludge are visualized in the gallbladder. There is no gross intrahepatic or extrahepatic biliary dilatation, common bile duct could not be visualized. The liver is small in size and appears cirrhotic. The pancreas could not be visualized due to overlying bowel gas. Spleen is enlarged measuring 18.3 x 16.5 x 8.1 cm, splenic index 2446. There is no hydronephrosis bilaterally. A cyst of the mid right kidney measures 1.3 cm in diameter. The right kidney measures 11.3 x 5.6 x 4.9 cm. Left renal dimensions are 12.1 x 5.2 x 3.8 cm. The abdominal aorta could not be visualized due to overlying bowel gas. There is moderate diffuse ascites present. The main portal vein measures 17 mm in diameter. Thrombus is noted in the main portal vein with suspected cavernous transformation. A vessel in this region demonstrates hepatofugal flow. There are pulsatile waveforms of the portal veins and portalization of the hepatic veins, compatible with cirrhosis and portal hypertension. Multiple splenic varices are noted which extend toward the left kidney. Patent main hepatic artery demonstrates peak systolic velocity of 96 centimeters/second. Flow is seen in the splenic vein at the splenic hilum. The more central splenic vein and superior mesenteric vein could not be visualized. IMPRESSION: Stones and sludge in the gallbladder. No obvious biliary dilatation, the common bile duct could not be visualized. Cirrhotic liver with findings of portal hypertension, portal vein thrombosis and splenomegaly. 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 There are splenorenal varices. There is moderate ascites. Portal vasculature demonstrates normal direction of flow with no thrombosis. No evidence of hepatic vein thrombosis. <Electronically signed by Ernie Craig > 12/19/20 1010
== END ==
LOC: M RAD 06:38
PROVIDERS: ATTEND Internal Medicine Gastroenterology
DX: I81 Portal vein thrombosis (principal); K76.6 Portal hypertension; K74.60 Unspecified cirrhosis of liver; R18.8 Other ascites

== ENCOUNTER → 2020-12-21 | Outpatient (CLI) | payer OTHER ==
[2020-12-21 09:13] VITALS: BP 124/66
--- NOTE | 2020-12-21 16:58 | REP ---
INDICATION: ASCITES The patient has a history of ascites COMPARISON: None. TECHNIQUE: The procedure was performed by DANETTE Grace, under the direct supervision of Dr. Craig The risks and benefits of the procedure were explained to the patient and an informed consent was obtained both verbally and written. Directly prior to the start of the procedure a formal time-out was completed in the procedure room. The largest pocket of fluid was localized in the right lower quadrant using ultrasound guidance. The skin was prepped and draped in a sterile fashion. Ten ML of buffered 1% lidocaine 10 mg/ml was used as a local anesthetic. An 8-Yoruba multi side-hole catheter was inserted using trocar technique. FINDINGS: Technically successful paracentesis yielding 3200 mL of clear yellow fluid. The patient tolerated the procedure well and there were no immediate complications. After the appropriate amount of monitored convalescence, the patient was discharged from the department. IMPRESSION: Technically successful paracentesis yielding 3200 mL of clear yellow fluid. <Electronically signed by Sophia Avila > 12/21/20 1446 <Electronically signed by Ernie Craig > 12/21/20 0025
== END ==
LOC: M IRPRO 08:23
PROVIDERS: ATTEND Family Medicine
DX: K70.31 Alcoholic cirrhosis of liver with ascites (principal)

== ENCOUNTER → 2020-12-27 | Outpatient (CLI) | payer OTHER | LOC: M LABSMTC 10:25 | PROVIDERS: ATTEND Anesthesiology | DX: Z01.812 Encounter for preprocedural laboratory examination (principal); Z20.822 Contact with and (suspected) exposure to COVID-19 ==

== ENCOUNTER → 2020-12-28 | Outpatient (CLI) | payer OTHER ==
[~2020-12-28] MED LIST changes: +SODIUM BICARBONATE 8.4% INJ 50MEQ 50 ML VIAL As Ordered ONE
[2020-12-28 10:23] VITALS: BP 125/66
--- NOTE | 2020-12-28 17:20 | REP ---
INDICATION: ASCITES. COMPARISON: None. TECHNIQUE: The procedure was performed under the direct supervision of Dr. Craig. The risks and benefits of the procedure were explained to the patient and informed consent was obtained. The largest pocket of fluid was localized in the right lower quadrant using ultrasound guidance. The skin was prepped and draped in a sterile fashion. 5 mL of 1% lidocaine was used as a local anesthetic. An 8-Bengali multi side-hole catheter was inserted using trocar technique.4000 mL of clear yellow fluid was withdrawn and discarded. Estimated blood loss: Less than 1 mL The patient tolerated the procedure well and there were no immediate complications. After the appropriate amount of monitored convalescence, the patient was discharged from the department. FINDINGS: None IMPRESSION: Ultrasound-guided paracentesis [id number] mL of clear yellow fluid. <Electronically signed by Kermit Kent > 12/28/20 1521 <Electronically signed by Ernie Craig > 12/28/20 9135
== END ==
LOC: M IRPRO 09:03
PROVIDERS: ATTEND Family Medicine
DX: K70.31 Alcoholic cirrhosis of liver with ascites (principal)

== ENCOUNTER 2021-01-01 09:09 | Day surgery (SDC) | payer OTHER ==
[~2021-01-01] VITALS: Ht 157.5 cm; Wt 82.1 kg
[~2021-01-01 09:09] MED LIST changes: +NS 1,000 ML IV ONE; -SODIUM BICARBONATE 8.4% INJ 50MEQ 50 ML VIAL As Ordered ONE
--- OUTSIDE RECORDS SUMMARY | 2021-01-01 09:14 | CCD ---
Author Author [facility] Organization [facility] Address Unknown Phone Unavailable Care Team Providers Care [place]set Edger Name Role Phone Pelon Elam Unavailable PROBLEMS Type Condition ICD9-CM Code BHT07-[id number] Code Onset Dates Condition S tatus W/U Status Risk SNOMED Code Notes Problem Gastro-esophageal reflux disease without esophagitis K21.9 Active confirmed 682392401 Problem Other hyperlipidemia E78.4 Active confirmed 49395330 Problem Essential (primary) hypertension I10 Active conf irmed 44882920 Problem Dyslipidemia E78.5 Active confirmed 6331867 07 Problem Umbilical hernia without obstruction and without gangrene K42.9 Active confirmed 332837511 Problem Alcohol abuse F10.10 Active confirmed 042039 05 Problem Elevated blood sugar R73.9 Active confirmed 034629320 Problem Esophageal varices without b leeding, unspecified esophageal varices type I85.00 Active confirmed 59793348 Problem Hepatic cirrhosis, unspecified hepatic cirrhosis type K74.60 Active confirmed 21341954 Problem Esophageal varices I85.00 Active confirmed 2 9069727 Problem Cirrhosis of liver K74.60 Active confirmed 1 9051362 Problem Type 2 diabetes mellitus wit h complication, without long-term current use of insulin E11.8 Active confirmed 27750965 Problem Nicotine dependence, uncomplicated, unspecified nicotine product type F17.200 Active confirmed 55343446 Problem Inguinal hernia of left side without obstruction or gangre ne K40.90 Active confirmed 916114105 Problem Epididymitis, right N45.1 Active confirmed 67718294 Problem Jaundice R17 Active confirmed 93625622 Problem 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 Activ e confirmed 7726739071369456 Problem Other cirrhosis of liver K74.69 Active confirmed 99244826 Problem Hepatic encephalopathy K72.90 Active confirmed 66895251 Problem Vitamin D deficiency, unspecified E55.9 Active con firmed 19614123 Problem Chronic hepatitis C B18.2 Active confirmed 520719601 Problem Other ascites R18.8 Active confirmed 889567 000 Problem Unspecified cirrhosis of liver K74.60 Active confir med 97712041 Problem Nicotine dependence with juwan otine-induced disorder, unspecified nicotine product type F17.209 Active confirmed 27287746 Problem T12 burst fracture S22.081A Active confirmed 646175239 ALLERGIES No Known Allergies ENCOUNTERS from 1960 to 2020-11-14 Encounter Location Date Provider Diagnosis [facility] Dustin Rosana GERMAIN [phone] [place] [address] Oct, Pelon Elam IMMUNIZATIONS Vaccine Route Administration Date Status Pneumococcal Adult 0.5mL Pneumovax 23 IM Intramuscular August 14, 2020 Administered Zoster 50mcg/0.5mL Shingrix IM Intramuscular August 14, 2020 Adm inistered COVID-19 dose #2 given elsewhere Unspecified Unknown July 06, 2020 Administered Hepatitis A & B 1mL Twinrix IM Intramuscular Apr 03, 2011 Adm inistered Influenza 18 yrs & older Flublok IM Intramuscular Jan 13, 2020 Administered Influenza 6mo & up Fluzone IM Intramuscular Feb 18, 2011 Admi nistered COVID-19 dose #1 given elsewhere Unspecified Unknown Apr Administered Hepatitis A & B 1mL Twinrix Unknown Dec 05, 2008 Admi nistered Hepatitis A & B 1mL Twinrix Unknown June 30, 2008 Admi nistered Hepatitis A & B 1mL Twinrix Unknown May 30, 2008 Admi nistered Pneumococcal 0.5mL Prevnar 13 IM Intramuscular Jan 08, 2012 A dministered Influenza 6mo & up Fluzone IM Intramuscular Dec 25, 2015 Admi nistered Influenza 6mo & up Fluzone IM Intramuscular Jan 05, 2014 Admi nistered Influenza 6mo & up Fluzone IM Intramuscular Jan 08, 2012 Admi nistered SOCIAL HISTORY Tobacco Use: Social History Observation Description Date Details (start date - stop date) Current Smoker Sex Assigned At : Social History Observation Description Sex Assigned At Unknown Audit Question Answer Notes Total Score: 4 Interpretation: Alcohol Education Language: Question Answer Notes Languages spoken: Nepali Restorationist: Question Answer Notes Restorationist protestant beliefs do not impact healthcare Sexual Hx: Question Answer Notes Had sex in the last 12 months (vaginal, oral, or anal)? No Have you ever had an STD? Yes Other? Yes Drug and Alcohol Question Answer Notes Total Score: 0 Interpretation: No problems reported Alcohol Screening: Question Answer Notes Did you have a drink containing alcohol in the past year? Ye s Points 6 Interpretation Positive How often did you have six or more drinks on one occas ion in the past year? Less than monthly (1 point) How many drinks did you have on a typica l day when you were drinking in the past year? 3 or 4 (1 point) How often did you have a drink containing alcohol in t he past year? Four or more times a week (4 points) BMI Care Goal Follow-Up Question Answer Notes Above Normal BMI Follow-Up Dietary needs education Tobacco Use: Question Answer Notes Are you a: current smoker Smoking Cessation Information Given 10/24/2020 Patient counseled on the dangers of tobacco use and urged to quit: 10/24/2020 How many cigarettes a day do you smoke? 6-10 REASON FOR REFERRAL No Information VITAL SIGNS No information MEDICATIONS Medication SIG (Take, Route, Frequency, Duration) Notes Start Da te End Date Status hydrOXYzine HCl 25 MG 1 tablet as needed Orally ev farheen 8 hrs for itching for 30 day(s) Oct, Active Nicoderm CQ 21 MG/24HR 1 patch to skin Transdermal Once a da y pt reports that he would like to start this again Jul, Active Torsemide 20 MG 1 tab Orally Daily A ctive Lactulose 10 GM/15ML take 30ml by mouth three times a day Oral for 30 Days Active Pantoprazole Sodium 40 MG 1 tablet Orally BID with food Active Carvedilol 12.5 MG 1 tablet with food Orally Twice a day pt reports that he is only taking once a day Jul, Active Spironolactone 25 mg take 2 tablet by mouth every day Oral Daily Active PROCEDURES No Information RESULTS No Results REASON FOR VISIT No Information MEDICAL (GENERAL) HISTORY Type Description Date Medical History HYPERTENSION Medical History GERD Medical History ALCOHOL ABUSE Medical History CHRONIC HEPATITIS C genotype 2B treated pegintron /ribavirin 06/2008-12/2008 with relapse in January 2009 Medical History ANXIETY Medical History hyperlipidemia Medical History history of IV drug use 1981 Medical History elevated ammonia Medical History MULTIPLE GALLSTONES BY ULTRASOUND 6 Medical History tachycardia Medical History fracture T12, T11 05/2020 Medical History ascites Medical History alcoholic cirrhosis. Medical History scrotal edema Medical History peripheral edema Surgical History left thumb laceration- stitches Surgical History endoscopy 07/22/16 Surgical History cyst removed from neck in 1979 Hospitalization History [place] [id number] Hospitalization History [facility] fact[facility] 05/2020 Hospitalization History [facility] 09/2020 Goals Section No Information Health Concerns No Information MEDICAL EQUIPMENT No Information MENTAL STATUS No Information FUNCTIONAL STATUS No Information ASSESSMENTS No Information PLAN OF TREATMENT Medication Medication Name Sig Start Date Stop Date Lactulose 10 GM/15ML take 30ml by mouth three times a day Oral f or 30 Days hydrOXYzine HCl 25 MG 1 tablet as needed Orally ev farheen 8 hrs for itching for 30 day(s) Oct, Torsemide 20 MG 1 tab Orally Daily Carvedilol 12.5 MG 1 tablet with food Orally Twice a day Jul, Spironolactone 25 mg take 2 tablet by mouth every day Oral Daily Nicoderm CQ 21 MG/24HR 1 patch to skin Transdermal Once a day Jul, Next Appt Details Provider Name:Pelon Elam, 2020-12-06 02 :30:00 PM, Alysia GROVES , , [place], [address], Provider Name:Pelon Elam, 2020-12-11 10 :00:00 AM, Alysia GROVES [address], , [place], [address], Insurance Providers Payer Name Payer Address Payer Phone Insured Name Patient Relati onship to Insured Coverage Start Date Coverage End Date [facility] [employer] [facility] [address] [facility] [id number] ADDISON ZUÑIGA self
--- OUTSIDE RECORDS SUMMARY | 2021-01-01 09:14 | CCD ---
Author Author [facility] Syst ems Organization [facility] People Pattern Syst ems Address Unknown Phone Unavailable Care Team Providers Care Cemetery Warden Name Role Phone Pelon Elam Unavailable PROBLEMS Type Condition ICD9-CM Code [id number] Code Onset Dates Condition S tatus W/U Status Risk SNOMED Code Notes Problem Gastro-esophageal reflux disease without esophagitis K21.9 Active confirmed 495200916 Problem Other hyperlipidemia E78.4 Active confirmed 32360243 Problem Essential (primary) hypertension I10 Active conf irmed 18126562 Problem Dyslipidemia E78.5 Active confirmed 9600043 07 Problem Umbilical hernia without obstruction and without gangrene K42.9 Active confirmed 031770295 Problem Alcohol abuse F10.10 Active confirmed 770263 05 Problem Elevated blood sugar R73.9 Active confirmed 775985554 Problem Esophageal varices without b leeding, unspecified esophageal varices type I85.00 Active confirmed 98484366 Problem Hepatic cirrhosis, unspecified hepatic cirrhosis type K74.60 Active confirmed 06153934 Problem Esophageal varices I85.00 Active confirmed 2 5982855 Problem Cirrhosis of liver K74.60 Active confirmed 1 5345917 Problem Type 2 diabetes mellitus wit h complication, without long-term current use of insulin E11.8 Active confirmed 91821519 Problem Nicotine dependence, uncomplicated, unspecified nicotine product type F17.200 Active confirmed 90986371 Problem Inguinal hernia of left side without obstruction or gangre ne K40.90 Active confirmed 844945162 Problem Epididymitis, right N45.1 Active confirmed 90237937 Problem Jaundice R17 Active confirmed 62213785 Problem 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 Activ e confirmed 5339627575621936 Problem Other cirrhosis of liver K74.69 Active confirmed 35563531 Problem Hepatic encephalopathy K72.90 Active confirmed 31500184 Problem Vitamin D deficiency, unspecified E55.9 Active con firmed 49396643 Problem Chronic hepatitis C B18.2 Active confirmed 631182824 Problem Other ascites R18.8 Active confirmed 923729 000 Problem Unspecified cirrhosis of liver K74.60 Active confir med 45423909 Problem Nicotine dependence with juwan otine-induced disorder, unspecified nicotine product type F17.209 Active confirmed 24463209 Problem T12 burst fracture S22.081A Active confirmed 126148321 ALLERGIES No Known Allergies ENCOUNTERS from 1960 to 2020-11-15 Encounter Location Date Provider Diagnosis [facility] Dustin Rosana GERMAIN [phone] [place] [address] Oct, Pelon Elam IMMUNIZATIONS Vaccine Route Administration Date Status COVID-19 dose #2 given elsewhere Unspecified Unknown July 06, 2020 Administered Influenza 18 yrs & older Flublok IM Intramuscular Jan 13, 2020 Administered Hepatitis A & B 1mL Twinrix IM Intramuscular Apr 03, 2011 Adm inistered Zoster 50mcg/0.5mL Shingrix IM Intramuscular August 14, 2020 Adm inistered COVID-19 dose #1 given elsewhere Unspecified Unknown Apr Administered Influenza 6mo & up Fluzone IM Intramuscular Feb 18, 2011 Admi nistered Hepatitis A & B 1mL Twinrix Unknown Dec 05, 2008 Admi nistered Hepatitis A & B 1mL Twinrix Unknown June 30, 2008 Admi nistered Hepatitis A & B 1mL Twinrix Unknown May 30, 2008 Admi nistered Pneumococcal Adult 0.5mL Pneumovax 23 IM Intramuscular August 14, 2020 Administered Pneumococcal 0.5mL Prevnar 13 IM Intramuscular Jan [...] Education Language: Question Answer Notes Languages spoken: Urdu Protestant: Question Answer Notes Protestant jainism beliefs do not impact healthcare Sexual Hx: [...] Information RESULTS No Results REASON FOR VISIT Gastro appt MEDICAL (GENERAL) HISTORY Type Description Date Medical [...] removed from neck in 1979 Hospitalization History [place] [address] Hospitalization History [facility] 05/2020 Hospitalization History [facility] 09/2020 Goals Section No Information Health [...] 02 :30:00 PM, Alysia GROVES , , [place], [address], Provider Name:Pelon Elam, 2020-12-11 10 :00:00 AM, Alysia GROVES MICHELA, , [place], [address], Insurance Providers Payer Name Payer Address Payer Phone Insured Name Patient Relati onship to Insured Coverage Start Date Coverage End Date [facility] COMMUNITY PLAN [facility] [address] [facility] [address] ADDISON ZUÑIGA self
--- OUTSIDE RECORDS SUMMARY | 2021-01-01 09:14 | CCD ---
Author Author [facility] Syst ems Organization [facility] [email or web address] Syst ems Address Unknown Phone Unavailable Care Team Providers Care Housing Coordinator Name Role Phone Pelon Elam Unavailable PROBLEMS Type Condition ICD9-CM Code [id number] Code Onset Dates Condition S tatus W/U Status Risk SNOMED Code Notes Problem Gastro-esophageal reflux disease without esophagitis K21.9 Active confirmed 042072487 Problem Other hyperlipidemia E78.4 Active confirmed 63631868 Problem Essential (primary) hypertension I10 Active conf irmed 25883362 Problem Dyslipidemia E78.5 Active confirmed 3037234 07 Problem Umbilical hernia without obstruction and without gangrene K42.9 Active confirmed 703004258 Problem Alcohol abuse F10.10 Active confirmed 089909 05 Problem Elevated blood sugar R73.9 Active confirmed 129642150 Problem Esophageal varices without b leeding, unspecified esophageal varices type I85.00 Active confirmed 72281193 Problem Hepatic cirrhosis, unspecified hepatic cirrhosis type K74.60 Active confirmed 07025140 Problem Esophageal varices I85.00 Active confirmed 2 4764646 Problem Cirrhosis of liver K74.60 Active confirmed 1 2184264 Problem Type 2 diabetes mellitus wit h complication, without long-term current use of insulin E11.8 Active confirmed 26837748 Problem Nicotine dependence, uncomplicated, unspecified nicotine product type F17.200 Active confirmed 50275914 Problem Inguinal hernia of left side without obstruction or gangre ne K40.90 Active confirmed 066607161 Problem Epididymitis, right N45.1 Active confirmed 12202580 Problem Jaundice R17 Active confirmed 14053726 Problem 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 Activ e confirmed 4025667828829504 Problem Other cirrhosis of liver K74.69 Active confirmed 79873626 Problem Hepatic encephalopathy K72.90 Active confirmed 32226442 Problem Vitamin D deficiency, unspecified E55.9 Active con firmed 80755409 Problem Chronic hepatitis C B18.2 Active confirmed 282219314 Problem Other ascites R18.8 Active confirmed 459478 000 Problem Unspecified cirrhosis of liver K74.60 Active confir med 95585496 Problem Nicotine dependence with juwan otine-induced disorder, unspecified nicotine product type F17.209 Active confirmed 90900243 Problem T12 burst fracture S22.081A Active confirmed 003028608 ALLERGIES No Known Allergies ENCOUNTERS from 1960 to 2020-10-24 Encounter Location Date Provider Diagnosis [facility] Rosana GERMAIN [phone] [place] [address] 30 Sep, 2020 Pelon Elam IMMUNIZATIONS Vaccine Route Administration Date [...] Education Language: Question Answer Notes Languages spoken: Swedish Catholic: Question Answer Notes Catholic buddhist beliefs do not impact healthcare Sexual Hx: [...] Notes Start Da te End Date Status Lactulose 10 GM/15ML take 30ml by mouth three times a day Oral for 30 Days Active Spironolactone 25 mg take 2 tablet by mouth every day Oral Daily Active Nicoderm CQ 21 MG/24HR 1 patch to skin Transdermal Once a da y pt reports that he would like to start this again Jul, Active Carvedilol 12.5 MG 1 tablet with food Orally Twice a day pt reports that he is only taking once a day Jul, Active Pantoprazole Sodium 40 MG 1 tablet Orally BID with food Active Torsemide 20 MG 1 tab Orally Daily A ctive PROCEDURES No Information RESULTS No Results REASON FOR VISIT [facility] D/C 10/19-Hepatic Encephalopathy MEDICAL (GENERAL) HISTORY Type Description Date Medical [...] removed from neck in 1979 Hospitalization History [place] [address] Hospitalization History [facility] 05/2020 Hospitalization History [facility] 09/2020 Goals Section No Information Health Concerns No Information MEDICAL EQUIPMENT No Information MENTAL STATUS No Information FUNCTIONAL STATUS No Information ASSESSMENTS Encounter Date Diagnosis Assessment Notes Treatment Notes Treatm ent Clinical Notes Sep, Other Spoke to pt, he reports that he is feeling "not too bad", hospital follow up appt confirmed for today, pt reports that his mother is going to drop him off. medications reviewed and verified with pt, pt reports that he did not start the xifaxan d/t cost, pt reports it was $1600. pt reports that he is only taking carvedilol daily instead of twice a day, pt reports that his blood pressure goes too low- 106/50. pt reports that he would like to discuss starting PT services. pt reports that he would like pcp to evaluate some pimples on the back of his head and neck- pt reports that his hairdresser will not cut his hair until they are checked by pcp. Jeff Tim RN 10/24/2020 0818 PLAN OF TREATMENT Medication Medication Name Sig Start Date Stop Date Carvedilol 12.5 MG 1 tablet with food Orally Twice a day Jul, Lactulose 10 GM/15ML take 30ml by mouth three times a day Oral f or 30 Days Nicoderm CQ 21 MG/24HR 1 patch to skin Transdermal Once a day Jul, Torsemide 20 MG 1 tab Orally Daily Spironolactone 25 mg take 2 tablet by mouth every day Oral Daily Next Appt Details Provider Name:Pelon Elam, 2020-12-06 02 :30:00 PM, RosanaSb ABERNATHY, , [place], [address], Provider Name:Pelon Elam, 2020-12-11 10 :00:00 AM, RosanaSb ABERNATHY, , [place], [address], Insurance Providers Payer Name Payer Address Payer Phone Insured Name Patient Relati onship to Insured Coverage Start Date Coverage End Date [facility] COMM[facility] PLAN [facility] [address] [facility] [address] ADDISON ZUÑIGA self
--- OUTSIDE RECORDS SUMMARY | 2021-01-01 09:14 | CCD ---
Author Author [facility] Syst ems Organization [facility] Syst ems Address Unknown Phone Unavailable Care Team Providers Care Children'S Service Supervisor Name Role Phone Pelon Elam Unavailable PROBLEMS Type Condition ICD9-CM Code [id number] Code Onset Dates Condition S tatus W/U Status Risk SNOMED Code Notes Problem Gastro-esophageal reflux disease without esophagitis K21.9 Active confirmed 462352705 Problem Other hyperlipidemia E78.4 Active confirmed 05193310 Problem Essential (primary) hypertension I10 Active conf irmed 91094472 Problem Dyslipidemia E78.5 Active confirmed 2871963 07 Problem Umbilical hernia without obstruction and without gangrene K42.9 Active confirmed 204610221 Problem Alcohol abuse F10.10 Active confirmed 640485 05 Problem Elevated blood sugar R73.9 Active confirmed 947218855 Problem Esophageal varices without b leeding, unspecified esophageal varices type I85.00 Active confirmed 94008436 Problem Hepatic cirrhosis, unspecified hepatic cirrhosis type K74.60 Active confirmed 03495673 Problem Esophageal varices I85.00 Active confirmed 2 7283900 Problem Cirrhosis of liver K74.60 Active confirmed 1 2420228 Problem Type 2 diabetes mellitus wit h complication, without long-term current use of insulin E11.8 Active confirmed 78582830 Problem Nicotine dependence, uncomplicated, unspecified nicotine product type F17.200 Active confirmed 57414767 Problem Inguinal hernia of left side without obstruction or gangre ne K40.90 Active confirmed 716256304 Problem Epididymitis, right N45.1 Active confirmed 38478502 Problem Jaundice R17 Active confirmed 80723884 Problem 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 Activ e confirmed 7443874069524277 Problem Other cirrhosis of liver K74.69 Active confirmed 94430156 Problem Hepatic encephalopathy K72.90 Active confirmed 91260073 Problem Vitamin D deficiency, unspecified E55.9 Active con firmed 04549817 Problem Chronic hepatitis C B18.2 Active confirmed 298320279 Problem Other ascites R18.8 Active confirmed 143794 000 Problem Unspecified cirrhosis of liver K74.60 Active confir med 40023067 Problem Nicotine dependence with juwan otine-induced disorder, unspecified nicotine product type F17.209 Active confirmed 03079737 Problem T12 burst fracture S22.081A Active confirmed 497868755 ALLERGIES No Known Allergies ENCOUNTERS from 1960 to 2020 Encounter Location Date Provider Diagnosis [facility] Rosana GERMAIN [phone] [place] [address] Oct, Pelon Elam IMMUNIZATIONS Vaccine Route Administration [...] Education Language: Question Answer Notes Languages spoken: Greenlandic Yarsanism: Question Answer Notes Yarsanism amish beliefs do not impact healthcare Sexual Hx: [...] Information RESULTS No Results REASON FOR VISIT itching MEDICAL (GENERAL) HISTORY Type Description Date Medical [...] removed from neck in 1979 Hospitalization History [place] [address] Hospitalization History [facility] facture 05/2020 Hospitalization History [facility] 09/2020 Goals Section No Information Health [...] 02 :30:00 PM, Alysia GROVES , , [place], [address], Provider Name:Pelon Elam, 2020-12-11 10 :00:00 AM, Alysia GROVES MICHELA, , [place], [address], Insurance Providers Payer Name Payer Address Payer Phone Insured Name Patient Relati onship to Insured Coverage Start Date Coverage End Date [facility] COMMUNITY PLAN [facility] [address] [facility] [phone] ADDISON ZUÑIGA self
--- OUTSIDE RECORDS SUMMARY | 2021-01-01 09:14 | CCD ---
Continuity of Care Document (CCD) Created on: 12/12/2020 Mak Mendieta External Reference #: [id number] : 1960 Sex: Male Author Author Mak LANE MD Organization Unknown Address [address] [place] [address] Phone [phone] Care Team Providers Care Sighter Name Role Phone Jordyn Salmon AUTM [phone] Pelon Elam M.D. AUTM [phone] Problems Description No Active Problems Social History Type Date Description Comments Sex Unknown ETOH Use Denies alcohol use ETOH Use H/O Abuse Stopped 2020 Tobacco Use Start: Unknown Report Cessation Counseling Was Provided Tobacco Use Start: Unknown Quit Allergies and adverse reactions Description No Known Drug Allergies Medications Active Medications SIG Qnty Indications Ordering Provide r Date Miralax 17GM/Scoop Powder use as directed see dr lane colon preparation instructions 510gm K70.31 Jese id MD Efrem 12/12/2020 Lactulose 10GM/15ML Solution take 30 milliliters by mouth tid. may increase to 45 milliliters twice a day if necessary. (constipation) Unknown Carvedilol 12.5mg Tablets 1 by mouth twice a day Unknown Spironolactone 25mg Tablets b id Unknown Torsemide 20mg Tablets 1 by mouth every day Unknown Potassium Chloride Janine ER 10Meq Tablets ER 2 daily Unknown Pantoprazole Sodium 40mg Tablets D R twice daily -- one tablet in morning 1/2 hour before breakfast and one tablet prior to bedtime. total course 3 months. Unknown History Medications No Active Medications Unknown - 12/12/2020 Immunizations Description No Information Available Vital Signs Date Vital Result Comment 12/12/2020 10:33am BP Systolic 131 mmHg BP Diastolic 75 mmHg Height 64 inches 5'4" Weight 176.00 lb BMI (Body Mass Index) 30.2 kg/m2 [place] Body Weight 130 lb Weight 79.834 kg BSA (Body Surface Area) 1.85 m2 07/09/2016 11:28am BP Systolic 142 mmHg BP Diastolic 78 mmHg Height 64 inches 5'4" Weight 191.00 lb BMI (Body Mass Index) 32.8 kg/m2 [place] Body Weight 130 lb Weight 86.638 kg BSA (Body Surface Area) 1.92 m2 Procedures Date Code Description Status 12/12/2020 22577 Office/Outpatient New Moderate M DM 45-59 Minutes Completed Medical Devices Description No Information Available Encounters Type Date Location Provider Dx Diagnosis Office Visit 12/12/2020 10:15a [facility] Gastroenterology [facility] Cecilio Lane MD K70.31 Alcoholic cirrhosis of liver with ascites K76.6 Portal hypertension R18.8 Other ascites I81 Portal vein thrombosis I85.00 Esophageal varices without b leeding D12.0 Benign neoplasm of cecum D12.5 Benign neoplasm of sigmoid c olon Assessments Date Code Description Provider 12/12/2020 K70.31 Alcoholic cirrhosis of liver wit h ascites Cecilio Lane MD 12/12/2020 K76.[address] MD 12/12/2020 R18.[address] MD 12/12/2020 I81 Portal vein thrombosis Cecilio nayak MD 12/12/2020 I85.00 Esophageal varices without bleed ing Cecilio Lane MD 12/12/2020 D12.0 Benign neoplasm of cecum Cecilio rich MD 12/12/2020 D12.5 Benign neoplasm of sigmoid colon Cecilio aLne MD Plan of Treatment 12/12/2020 - [address]ilio [address] MD* K70.31 Alcoholic cirrhosis of liver with ascites * K76.6 Portal hypertension * R18.8 Other ascites * I81 Portal vein thrombosis * I85.00 Esophageal varices without bleeding * D12.0 Benign neoplasm of cecum * D12.5 Benign neoplasm of sigmoid colon * * New Medication:* Miralax 17 GM/Scoop * New Labs:* CBC With Differential, Ordered: 12/12/20 * Comprehensive Metabolic Profil, Ordered: 12/12/20 * Bilirubin,Direct, Ordered: 12/12/20 * Prothrombin Time/Inr, Ordered: 12/12/20 * Alpha Fetoprotein Tumor Quant, Ordered: 12/12/20 * Comments:* Pt in need for frequent paracentesis, (usually has tense ascites by end of week). He is getting evaluated for catheter placed for self tap at home (or eventual TIPSS for control of ascites) . * Follow up:* 6 months * Recommendations:* Q6 months US RUQ/AFP-Hepatoma screening Will add doppler--Has remote Hx PVT Paracentesis prn--His ascites is not tense today. I would continue paracentesis/albumin infusion prn tense ascites Cont Lactulose. goal of 2-3 soft stools/day. (same dose for now. he is not confused/no asterixix) Low Na diet. EGD for Hx Varices Colonoscopy for Hx Colon polyp. NH3 levels are not useful--He is AQAOx3 and has no asterixiis. he may be a good candidate for TIPSS (will r/o PVT by doppler)--Dr Pulido to see patient Functional Status Description No Information Available Mental Status Description No Information Available Referrals Refer to Reason for Referral Status Appt Date Cecilio Lane M.D. K74.60 UNSPECIFIED CIRRHOSIS OF LIVER Sche duled 09/25/2020 [facility], Gastroenterology [address], [address] [place] [address] [phone]
--- OUTSIDE RECORDS SUMMARY | 2021-01-01 09:14 | CCD ---
Author Author [facility] Syst ems Organization [facility] [employer] Syst ems Address Unknown Phone Unavailable Care Team Providers Care Chute Puller Name Role Phone Pelon Elam Unavailable PROBLEMS Type Condition ICD9-CM Code [id number] Code Onset Dates Condition S tatus W/U Status Risk SNOMED Code Notes Problem Gastro-esophageal reflux disease without esophagitis K21.9 Active confirmed 114071701 Problem Other hyperlipidemia E78.4 Active confirmed 01075444 Problem Essential (primary) hypertension I10 Active conf irmed 46653166 Problem Dyslipidemia E78.5 Active confirmed 5910978 07 Problem Umbilical hernia without obstruction and without gangrene K42.9 Active confirmed 525289712 Problem Alcohol abuse F10.10 Active confirmed 609961 05 Problem Elevated blood sugar R73.9 Active confirmed 526051035 Problem Esophageal varices without b leeding, unspecified esophageal varices type I85.00 Active confirmed 60925255 Problem Hepatic cirrhosis, unspecified hepatic cirrhosis type K74.60 Active confirmed 16564150 Problem Esophageal varices I85.00 Active confirmed 2 4813420 Problem Cirrhosis of liver K74.60 Active confirmed 1 4037489 Problem Type 2 diabetes mellitus wit h complication, without long-term current use of insulin E11.8 Active confirmed 52937975 Problem Nicotine dependence, uncomplicated, unspecified nicotine product type F17.200 Active confirmed 48685577 Problem Inguinal hernia of left side without obstruction or gangre ne K40.90 Active confirmed 456989825 Problem Epididymitis, right N45.1 Active confirmed 21748399 Problem Jaundice R17 Active confirmed 08329153 Problem 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 Activ e confirmed 6197381102875640 Problem Other cirrhosis of liver K74.69 Active confirmed 33703168 Problem Hepatic encephalopathy K72.90 Active confirmed 41058436 Problem Vitamin D deficiency, unspecified E55.9 Active con firmed 74512137 Problem Chronic hepatitis C B18.2 Active confirmed 957489174 Problem Other ascites R18.8 Active confirmed 199986 000 Problem Unspecified cirrhosis of liver K74.60 Active confir med 47919716 Problem Nicotine dependence with juwan otine-induced disorder, unspecified nicotine product type F17.209 Active confirmed 38467895 Problem T12 burst fracture S22.081A Active confirmed 971360176 ALLERGIES No Known Allergies ENCOUNTERS from 1960 to 2020-12-14 Encounter Location Date Provider Diagnosis [facility] [phone] [place] [address] Nov, Pelon Elam IMMUNIZATIONS Vaccine Route Administration Date Status COVID-19 dose #1 given elsewhere Unspecified Unknown Apr Administered COVID-19 dose #2 given elsewhere Unspecified Unknown July 06, 2020 Administered Influenza 18 yrs & older Flublok IM Intramuscular Jan 13, 2020 Administered Influenza 18 yrs & older Flublok IM Intramuscular Dec 06, 2020 Administered Hepatitis A & B 1mL Twinrix IM Intramuscular Apr 03, 2011 Adm inistered Zoster 50mcg/0.5mL Shingrix IM Intramuscular August 14, 2020 Adm inistered Zoster 50mcg/0.5mL Shingrix IM Intramuscular Dec 06, 2020 Adm inistered Influenza 6mo & up Fluzone IM Intramuscular [...] Education Language: Question Answer Notes Languages spoken: Greek Roman Catholic: Question Answer Notes Roman Catholic muslim beliefs do not impact healthcare Sexual Hx: [...] a: current smoker Smoking Cessation Information Given 12/06/2020 Patient counseled on the dangers of tobacco use and urged to quit: 12/06/2020 How many cigarettes a day do you smoke? 5 or less REASON FOR REFERRAL No Information VITAL SIGNS No information MEDICATIONS Medication SIG (Take, Route, Frequency, Duration) Notes Start Da te End Date Status Spironolactone 25 MG TAKE TWO TABLETS BY MOUTH EVERY DAY for 30 Active Potassium Chloride ER 10 MEQ 1 tablet with food Orally Twice a day for 30 day(s) Nov, Active Carvedilol 12.5 MG 1 tablet with food Orally Twice a day pt reports that he is only taking once a day Jul, Active Torsemide 20 MG 1 tab Orally Daily A ctive Lactulose 10 GM/15ML take 30ml by mouth three times a day Oral for 30 Days Active hydrOXYzine HCl 25 MG 1 tablet as needed Orally ev farheen 8 hrs for itching for 30 day(s) Oct, Active Nicoderm CQ 21 MG/24HR 1 patch to skin Transdermal Once a da y pt reports that he would like to start this again Jul, Not-Takin g Pantoprazole Sodium 40 MG 1 tablet Orally BID with food Active PROCEDURES No Information RESULTS No Results REASON FOR VISIT auth MEDICAL (GENERAL) HISTORY Type Description Date Medical [...] removed from neck in 1979 Hospitalization History [place] [address] Hospitalization History [facility] back facture 05/[address] [facility] 09/2020 Goals Section No Information Health Concerns No Information MEDICAL EQUIPMENT No Information MENTAL STATUS No Information FUNCTIONAL STATUS No Information ASSESSMENTS No Information PLAN OF TREATMENT Medication Medication Name Sig Start Date Stop Date Potassium Chloride ER 10 MEQ 1 tablet with food Orally Twice a day for 30 day(s) Nov, Next Appt Details Provider Name:Pelon Elam, 2021-02-06 11 :00:00 AM, [address] , , [place], [address], Insurance Providers Payer Name Payer Address Payer Phone Insured Name Patient Relati onship to Insured Coverage Start Date Coverage End Date [facility] COMM[facility] PLAN [facility] [address] [facility] [address] ADDISON ZUÑIGA self
--- OUTSIDE RECORDS SUMMARY | 2021-01-01 09:14 | CCD ---
Author Author [facility] Organization [facility] [employer] Address Unknown Phone Unavailable Care Team Providers Care Preparer Name Role Phone Pelon Elam Unavailable PROBLEMS Type Condition ICD9-CM Code [id number] Code Onset Dates Condition S tatus W/U Status Risk SNOMED Code Notes Problem Gastro-esophageal reflux disease without esophagitis K21.9 Active confirmed 282313480 Problem Other hyperlipidemia E78.4 Active confirmed 11183364 Problem Essential (primary) hypertension I10 Active conf irmed 42383598 Problem Dyslipidemia E78.5 Active confirmed 4853682 07 Problem Umbilical hernia without obstruction and without gangrene K42.9 Active confirmed 486996766 Problem Alcohol abuse F10.10 Active confirmed 416867 05 Problem Elevated blood sugar R73.9 Active confirmed 913683294 Problem Esophageal varices without b leeding, unspecified esophageal varices type I85.00 Active confirmed 92872463 Problem Hepatic cirrhosis, unspecified hepatic cirrhosis type K74.60 Active confirmed 29618487 Problem Esophageal varices I85.00 Active confirmed 2 8617377 Problem Cirrhosis of liver K74.60 Active confirmed 1 4871664 Problem Type 2 diabetes mellitus wit h complication, without long-term current use of insulin E11.8 Active confirmed 46570010 Problem Nicotine dependence, uncomplicated, unspecified nicotine product type F17.200 Active confirmed 96926670 Problem Inguinal hernia of left side without obstruction or gangre ne K40.90 Active confirmed 609687620 Problem Epididymitis, right N45.1 Active confirmed 26920988 Problem Jaundice R17 Active confirmed 83452865 Problem 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 Activ e confirmed 5500274042665563 Problem Other cirrhosis of liver K74.69 Active confirmed 33883961 Problem Hepatic encephalopathy K72.90 Active confirmed 21994806 Problem Vitamin D deficiency, unspecified E55.9 Active con firmed 67264242 Problem Chronic hepatitis C B18.2 Active confirmed 182496570 Problem Other ascites R18.8 Active confirmed 375388 000 Problem Unspecified cirrhosis of liver K74.60 Active confir med 02006054 Problem Nicotine dependence with juwan otine-induced disorder, unspecified nicotine product type F17.209 Active confirmed 59999978 Problem T12 burst fracture S22.081A Active confirmed 756937117 ALLERGIES No Known Allergies ENCOUNTERS from 1960 to 2020-11-05 Encounter Location Date Provider Diagnosis [facility] Dustin Alysia GROVES [phone] [place] [address] Oct, Pelon Elam 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.3 1 ; Hepatic encephalopathy K72.90 and Nicotine dependence with nicotine-induced disorder, unspecified nicotine product type F17.209 IMMUNIZATIONS Vaccine Route Administration Date Status COVID-19 dose #1 given elsewhere Unspecified Unknown Apr Administered COVID-19 dose #2 given elsewhere Unspecified Unknown July 06, 2020 Administered Hepatitis A & B 1mL Twinrix IM Intramuscular Apr 03, 2011 Adm inistered Zoster 50mcg/0.5mL Shingrix IM Intramuscular August 14, 2020 Adm inistered Influenza 18 yrs & older [...] Education Language: Question Answer Notes Languages spoken: Turkmen Congregational: Question Answer Notes Congregational buddhism beliefs do not impact healthcare Sexual Hx: [...] REASON FOR REFERRAL No Information VITAL SIGNS Weight 195.8 lbs Oct, Height 65 in Oct, BMI 32.58 kg/m2 Oct, Heart Rate 84 /min Oct, Respiratory Rate 20 /min Oct, Temperature 97.8 degrees Fahrenheit Oct, Oximetry 98RA Oct, Blood pressure systolic 112 mm Hg Oct, Blood pressure diastolic 70 mm Hg Oct, MEDICATIONS Medication SIG (Take, Route, Frequency, Duration) [...] Information RESULTS No Results REASON FOR VISIT [facility] D/C 10/19-Hepatic Encephalopathy MEDICAL (GENERAL) HISTORY [...] removed from neck in 1979 Hospitalization History [place] [address] Hospitalization History [facility] 05/2020 Hospitalization History [facility] 09/2020 Goals Section No Information Health Concerns No Information MEDICAL EQUIPMENT No Information MENTAL STATUS No Information FUNCTIONAL STATUS No Information ASSESSMENTS Encounter Date Diagnosis Assessment Notes Treatment Notes Treatm ent Clinical Notes Oct, Ascites due to alcoholic cirrhosis (ICD-10 - K70 .31) after ceasing alcohol we [facility]. try to use lactulose as prescribed to produce 3-4 soft BM's daily Oct, Hepatic encephalopathy (ICD-10 - K72.90) Oct, Nicotine dependence with juwan otine-induced disorder, unspecified nicotine product type (ICD-10 - F17.209) PLAN OF TREATMENT Medication Medication Name Sig [...] to skin Transdermal Once a day Jul, Treatment Notes Assessment Notes Clinical Notes Ascites due to alcoholic cirrhosis after ceasing alcoh ol we will initiate referral [facility] paracentesis as needed.try to use lactulose as prescribed to produce 3-4 soft BM's daily Future Test Test Name Order Date Comprehensive Metabolic Profile (CMP) [id number] CBC with Differential [id number] AMMONIA [id number] Next Appt Details 6 Weeks Reason: Provider Name:Pelon Elam, 2020-12-06 02 :30:00 PM, Alysia GERMAIN ABERNATHY, , [place], [address], Provider Name:Pelon Elam, 2020-12-11 10 :00:00 AM, [address] CANDELARIODARIANA ABERNATHY, , [place], [address], Insurance Providers Payer Name Payer Address Payer Phone Insured Name Patient Relati onship to Insured Coverage Start Date Coverage End Date [facility] [address] [facility] [address] ADDISON ZUÑIGA self
--- OUTSIDE RECORDS SUMMARY | 2021-01-01 09:14 | CCD | Continuity of Care Document ---
Author Author Mak LANE MD Organization Unknown Address [address] [place] [address] Phone [phone] Care Team Providers Care Snowmobile Mechanic Name Role Phone Jordyn Salmon AUTM [phone] Pelon Elam M.D. AUTM [phone] Problems Description No Active Problems Social History [...] lb BMI (Body Mass Index) 30.2 kg/m2 [place] Body Weight 130 lb Weight 79.834 kg BSA (Body Surface Area) 1.85 m2 07/09/2016 11:28am BP Systolic 142 mmHg BP Diastolic 78 mmHg Height 64 inches 5'4" Weight 191.00 lb BMI (Body Mass Index) 32.8 kg/m2 [place] Body Weight 130 lb Weight 86.638 kg BSA (Body Surface Area) 1.92 m2 Results Test Acquired Date Facility Test Result H/L Range Note CBC With Differential 12/14/2020 [facility] [address] [place] [address] [phone] White Blood Count 5.8 10 Normal 4.0-10.0 Red Blood Count 3.30 10 Low 4.30-6.10 Hemoglobin 9.8 g/dL Low 13.5-17.5 Hematocrit 30.2 % Low 42.0-52.0 Mean Corpuscular Volume 91.5 fl Normal 80.0-96.0 Mean Corpuscular Hemoglobin 29.7 pg Normal 27.0-33.0 Mean Corpuscular HGB Conc 32.5 g/dL Normal 32.0-36.5 Red Cell Distribution Width 16.4 % High 11.5-14.5 Platelet Count, Automated 55 10 Low 150-450 Neutrophils % 72.6 % High 36.0-66.0 Lymph % 10.5 % Low 24.0-44.0 White % 11.3 % High 2.0-8.0 Eos % 3.9 % High 0.0-3.0 Baso % 1.0 % Normal 0.0-1.0 Immature Granulocyte % 0.7 % Normal 0-3.0 Nucleated Red Blood Cell % 0.0 % Normal 0-0 Neutrophils # 4.2 10 Normal 1.5-8.5 Lymph # 0.6 10 Low 1.5-5.0 White # 0.7 10 Normal 0.0-0.8 Eos # 0.2 10 Normal 0.0-0.5 Baso # 0.1 10 Normal 0.0-0.2 Comprehensive Metabolic Profil 12/14/2020 [facility] [address] [place], [place] [id number] [phone] Glucose, Fasting 168 mg/dL High 70-100 Blood Urea Nitrogen 20 mg/dL High 7-18 Creatinine For GFR 1.74 mg/dL High 0.70-1.30 Glomerular Filtration Rate 42.8 Low >49 1 Sodium Level 136 mEq/L Normal 136-145 Potassium Serum 3.7 mEq/L Normal 3.5-5.1 Chloride Level 102 mEq/L Normal 98-107 Carbon Dioxide Level 30 mEq/L Normal 21-32 Anion Gap 4 mEq/L Low 8-16 Calcium Level 8.7 mg/dL Low 8.8-10.2 Ast/Sgot 24 U/L Normal 7-37 Alt/SGPT 21 U/L Normal 12-78 Alkaline Phosphatase 150 U/L High 45-117 Bilirubin,Total 1.1 mg/dL High 0.2-1.0 Total Protein 6.5 GM/DL Normal 6.4-8.2 Albumin 2.1 GM/DL Low 3.2-5.2 Albumin/Globulin Ratio 0.5 Normal Laboratory test finding 12/14/2020 [facility] [address] [place] [address] [phone] Bilirubin,Direct 0.6 mg/dL High 0.0-0.2 2 Prothrombin Time/Inr 12/14/2020 [facility] [address] [place] [address] [phone] Prothrombin Time 16.2 seconds High 12.7-14.5 Inr 1.25 Normal 3 Laboratory test finding 12/14/2020 [facility] [address] [place] [address] [phone] Alpha Fetoprotein Tumor Quant 5.9 NG/ML Normal <8 .1 4 Immature Platelet Fraction 3.1 % Normal 0.0-10.91 5 1 Units are mL/min/1.73 m2 Chronic Kidney Disease Staging per NKF: Stage I & II GFR >=60 Normal to Mildly Decreased Stage III GFR 30-59 Moderately Decreased Stage IV GFR 15-29 Severely Decreased Stage V GFR <15 Very Little GFR Left ESRD GFR <15 on DELIVERY HELPER 2 By: LAB DRAW Time: 917 By: LAB DRAW By: LAB DRAW Time: 917 By: LAB DRAW 3 THERAPUTIC HUMAN INR VALUES INDICATIONS NORMAL RANGES PROPHYLAXIS/TREATMENT OF: VENOUS THROMBOSIS 2.0-3.0 PULMONARY EMBOLISM 2.0-3.0 PREVENTION OF SYSTEMIC EMBOLISM FROM: TISSUE HEART VALVES 2.0-3.0 ACUTE MYOCARDIAL INFARCTION 2.0-3.0 VALVULAR HEART DISEASE 2.0-3.0 ATRIAL FIBRILLATION 2.0-3.0 MECHANICAL VALVES(HIGH RISK) 2.5-3.5 RECURRENT MYOCARDIAL INFARCTION 2.5-3.5 4 THE AFP ASSAY IS PERFORMED O N THE VivinoAUR BY CHEMILUMINESCENCE AND SHOULD NOT BE COMPARED INTERCHANGEABLY WITH OTHER METHODS. IT SHOULD NOT BE USED ALONE A SCREENING TEST OR DIAGNOSIS FOR THE PRESENCE OR ABSENCE OF MALIGNANT DISEASE. THESE RESULTS ARE NOT INTERPRETABLE IN FEMALES. PREDICTIONS OF DISEASE RECURRENCE SHOULD NOT BE BASED SOLELY ON VALUES OBTAINED FROM SERIAL PATIENT SERUM VALUES. 5 By: LAB DRAW Time: 917 Procedures Date Code Description Status 12/12/2020 82450 Office/Outpatient New Moderate M DM 45-59 Minutes Completed Medical Devices Description No Information Available Encounters Type Date Location Provider Dx Diagnosis Office Visit 12/12/2020 10:15a [facility] Cecilio Lane MD K70.31 Alcoholic cirrhosis of [...] D12.5 Benign neoplasm of sigmoid colon Cecilio Lane MD Plan of Treatment Future Appointment(s):* 01/01/2021 2:15 pm - Cecilio Lane MD at [facility] 12/12/2020 - Cecilio Lane MD* K70.31 Alcoholic cirrhosis of liver with ascites * K76.6 Portal hypertension * R18.8 Other ascites * I81 Portal vein thrombosis * I85.00 Esophageal varices without bleeding * D12.0 Benign neoplasm of cecum * D12.5 Benign neoplasm of sigmoid colon * * New Medication:* Miralax 17 GM/Scoop * Comments:* Pt in need for frequent [...] UNSPECIFIED CIRRHOSIS OF LIVER Sche duled 09/25/2020 [facility], Gastroenterology [address], [address] [place] [address] [phone]
--- OUTSIDE RECORDS SUMMARY | 2021-01-01 09:14 | CCD ---
Author Author [facility] Organization [facility] [employer] Address Unknown Phone Unavailable Care Team Providers Care Ager Operator Name Role Phone Pelon Elam Unavailable PROBLEMS Type Condition ICD9-CM Code [id number] Code Onset Dates Condition S tatus W/U Status Risk SNOMED Code Notes Problem Gastro-esophageal reflux disease without esophagitis K21.9 Active confirmed 030028827 Problem Other hyperlipidemia E78.4 Active confirmed 65363631 Problem Essential (primary) hypertension I10 Active conf irmed 66880132 Problem Dyslipidemia E78.5 Active confirmed 3104251 07 Problem Umbilical hernia without obstruction and without gangrene K42.9 Active confirmed 336499581 Problem Alcohol abuse F10.10 Active confirmed 696936 05 Problem Elevated blood sugar R73.9 Active confirmed 602093731 Problem Esophageal varices without b leeding, unspecified esophageal varices type I85.00 Active confirmed 73146068 Problem Hepatic cirrhosis, unspecified hepatic cirrhosis type K74.60 Active confirmed 13223933 Problem Esophageal varices I85.00 Active confirmed 2 2121825 Problem Cirrhosis of liver K74.60 Active confirmed 1 6931899 Problem Type 2 diabetes mellitus wit h complication, without long-term current use of insulin E11.8 Active confirmed 68499511 Problem Nicotine dependence, uncomplicated, unspecified nicotine product type F17.200 Active confirmed 86670809 Problem Inguinal hernia of left side without obstruction or gangre ne K40.90 Active confirmed 199306449 Problem Epididymitis, right N45.1 Active confirmed 29795872 Problem Jaundice R17 Active confirmed 31124367 Problem 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 Activ e confirmed 3287557936367164 Problem Other cirrhosis of liver K74.69 Active confirmed 87376447 Problem Hepatic encephalopathy K72.90 Active confirmed 29987552 Problem Vitamin D deficiency, unspecified E55.9 Active con firmed 96816475 Problem Chronic hepatitis C B18.2 Active confirmed 674951112 Problem Other ascites R18.8 Active confirmed 983718 000 Problem Unspecified cirrhosis of liver K74.60 Active confir med 79768824 Problem Nicotine dependence with juwan otine-induced disorder, unspecified nicotine product type F17.209 Active confirmed 70971808 Problem T12 burst fracture S22.081A Active confirmed 890294766 ALLERGIES No Known Allergies ENCOUNTERS from 1960 to 2020-11-16 Encounter Location Date Provider Diagnosis [facility] Dustin Rosana GERMAIN [phone] [place] [address] Oct, Pelon Elam IMMUNIZATIONS Vaccine Route Administration [...] Education Language: Question Answer Notes Languages spoken: Romanian Scientology: Question Answer Notes Scientology restorationist beliefs do not impact healthcare Sexual Hx: [...] Information RESULTS No Results REASON FOR VISIT [facility] MEDICAL (GENERAL) HISTORY Type Description Date Medical [...] removed from neck in 1979 Hospitalization History [place] [address] Hospitalization History [facility] fact[facility] 05/2020 Hospitalization History [facility] 09/2020 Goals Section No Information Health [...] 02 :30:00 PM, Alysia GROVES , , [place], [address], Provider Name:Pelon Elam, 2020-12-11 10 :00:00 AM, Alysia GROVES MICHELA, , [place], [address], Insurance Providers Payer Name Payer Address Payer Phone Insured Name Patient Relati onship to Insured Coverage Start Date Coverage End Date [facility] [address] [facility] [phone] ADDISON ZUÑIGA self
--- OUTSIDE RECORDS SUMMARY | 2021-01-01 09:14 | CCD ---
Author Author [facility] Organization [facility] [employer] [facility] [facility] Address Unknown Phone Unavailable Care Team Providers Care Master Automotive Technician Name Role Phone Pelon Elam Unavailable PROBLEMS Type Condition ICD9-CM Code [id number] Code Onset Dates Condition S tatus W/U Status Risk SNOMED Code Notes Problem Gastro-esophageal reflux disease without esophagitis K21.9 Active confirmed 094111176 Problem Other hyperlipidemia E78.4 Active confirmed 31304679 Problem Essential (primary) hypertension I10 Active conf irmed 56868139 Problem Dyslipidemia E78.5 Active confirmed 1861449 07 Problem Umbilical hernia without obstruction and without gangrene K42.9 Active confirmed 658415236 Problem Alcohol abuse F10.10 Active confirmed 734170 05 Problem Elevated blood sugar R73.9 Active confirmed 531437237 Problem Esophageal varices without b leeding, unspecified esophageal varices type I85.00 Active confirmed 60179216 Problem Hepatic cirrhosis, unspecified hepatic cirrhosis type K74.60 Active confirmed 36822720 Problem Esophageal varices I85.00 Active confirmed 2 9871989 Problem Cirrhosis of liver K74.60 Active confirmed 1 1351291 Problem Type 2 diabetes mellitus wit h complication, without long-term current use of insulin E11.8 Active confirmed 08624775 Problem Nicotine dependence, uncomplicated, unspecified nicotine product type F17.200 Active confirmed 45577671 Problem Inguinal hernia of left side without obstruction or gangre ne K40.90 Active confirmed 827844474 Problem Epididymitis, right N45.1 Active confirmed 17104947 Problem Jaundice R17 Active confirmed 07717956 Problem 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 Activ e confirmed 4846254201629377 Problem Other cirrhosis of liver K74.69 Active confirmed 65228703 Problem Hepatic encephalopathy K72.90 Active confirmed 47651071 Problem Vitamin D deficiency, unspecified E55.9 Active con firmed 25564052 Problem Chronic hepatitis C B18.2 Active confirmed 739295301 Problem Other ascites R18.8 Active confirmed 643338 000 Problem Unspecified cirrhosis of liver K74.60 Active confir med 45757794 Problem Nicotine dependence with juwan otine-induced disorder, unspecified nicotine product type F17.209 Active confirmed 94623721 Problem T12 burst fracture S22.081A Active confirmed 586308758 ALLERGIES No Known Allergies ENCOUNTERS from 1960 to 2020-11-07 Encounter Location Date Provider Diagnosis [facility] Rosana GERMAIN [phone] [place] [address] Oct, Pelon Elam End stage liver disease K72.90 IMMUNIZATIONS Vaccine Route Administration Date Status Influenza 18 yrs & older Flublok IM Intramuscular Jan 13, 2020 Administered Zoster 50mcg/0.5mL Shingrix IM Intramuscular August 14, 2020 Adm inistered COVID-19 dose #1 given elsewhere Unspecified Unknown Apr Administered COVID-19 dose #2 given elsewhere Unspecified Unknown July 06, 2020 Administered Hepatitis A & B 1mL Twinrix IM Intramuscular Apr 03, 2011 Adm inistered Influenza 6mo & up Fluzone [...] Education Language: Question Answer Notes Languages spoken: Kiswahili Nondenominational: Question Answer Notes Nondenominational holiness beliefs do not impact healthcare Sexual Hx: [...] do you smoke? 6-10 REASON FOR REFERRAL from 1960 to 2020-11-07 Reason patient with end stage liver disease. hx of alcohol abuse. ? candidacy for transplant? Diagnosis 1 End stage liver disease (K72 .90) Referral Organization [facility] Referring Provider First Name Pelon Referring Provider Last Name Papa Referring Provider Specialty Family Medicine Referred Provider Specialty Gastroenterology Referral Priority Routine General Notes Pelon Elam MD 11/07/2020 12 :57:43 PM > [facility] 11/07/2020 12:58:01 PM > please send copy of last discharge summary. VITAL SIGNS No information MEDICATIONS Medication SIG [...] Information RESULTS No Results REASON FOR VISIT Abdominal pain MEDICAL (GENERAL) HISTORY Type Description Date Medical [...] removed from neck in 1979 Hospitalization History [place] [address] Hospitalization History [facility] back facture 05/2020 Hospitalization History [facility] 09/2020 Goals Section No Information Health Concerns No Information MEDICAL EQUIPMENT No Information MENTAL STATUS No Information FUNCTIONAL STATUS No Information ASSESSMENTS Encounter Date Diagnosis Assessment Notes Treatment Notes Treatm ent Clinical Notes Oct, End stage liver disease (ICD-10 - K72.90) PLAN OF TREATMENT Medication Medication Name Sig [...] to skin Transdermal Once a day Jul, Referrals Referral Date Details patient with end stage liver disease. hx of alcohol abuse. ? candidacy for transplant? Next Appt Details Provider Name:Pelon Elam, 2020-12-06 02 :30:00 PM, RosanaSb ABERNATHY, , [place], [address], Provider Name:Pelon Elam, 2020-12-11 10 :00:00 AM, RosanaSb ABERNATHY, , [place], [address], Insurance Providers Payer Name Payer Address Payer Phone Insured Name Patient Relati onship to Insured Coverage Start Date Coverage End Date [employer] [facility] [address] [facility] [address] ADDISON ZUÑIGA self
--- OUTSIDE RECORDS SUMMARY | 2021-01-01 09:15 | CCD ---
Author Author [facility] Organization [facility] Address Unknown Phone Unavailable Care Team Providers Care Customs Director Name Role Phone Pelon Elam Unavailable PROBLEMS Type Condition ICD9-CM Code [id number] Code Onset Dates Condition S tatus W/U Status Risk SNOMED Code Notes Problem Elevated blood sugar R73.9 Active confirmed 261212510 Problem Other cirrhosis of liver K74.69 Active confirmed 69851209 Problem Hepatic cirrhosis, unspecified hepatic cirrhosis type K74.60 Active confirmed 25684524 Problem Alcohol abuse F10.10 Active confirmed 886127 05 Problem Cirrhosis of liver K74.60 Active confirmed 1 6287693 Problem Esophageal varices without b leeding, unspecified esophageal varices type I85.00 Active confirmed 23930347 Problem Nicotine dependence, uncomplicated, unspecified nicotine product type F17.200 Active confirmed 03632419 Problem Essential (primary) hypertension I10 Active conf irmed 81833475 Problem Esophageal varices I85.00 Active confirmed 2 3286127 Problem Gastro-esophageal reflux disease without esophagitis K21.9 Active confirmed 752753976 Problem Dyslipidemia E78.5 Active confirmed 7776216 07 Problem Inguinal hernia of left side without obstruction or gangre ne K40.90 Active confirmed 226398882 Problem Epididymitis, right N45.1 Active confirmed 48824072 Problem T12 burst fracture S22.081A Active confirmed 794316973 Problem Umbilical hernia without obstruction and without gangrene K42.9 Active confirmed 670384668 Problem Vitamin D deficiency, unspecified E55.9 Active con firmed 46932238 Problem 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 Activ e confirmed [id number] Problem Type 2 diabetes mellitus wit h complication, without long-term current use of insulin E11.8 Active confirmed 79541634 Problem Other hyperlipidemia E78.4 Active confirmed 63891779 Problem Chronic hepatitis C B18.2 Active confirmed 792508434 Problem Jaundice R17 Active confirmed 48584009 Problem Other ascites R18.8 Active confirmed 055240 000 Problem Unspecified cirrhosis of liver K74.60 Active confir med 85336027 Problem Nicotine dependence with juwan otine-induced disorder, unspecified nicotine product type F17.209 Active confirmed 91055019 ALLERGIES No Known Allergies ENCOUNTERS from 1960 to 2020-10-12 Encounter Location Date Provider Diagnosis [facility] [phone] [place] [address] Sep, [facility]on [place] [facility]MMUN[facility] Vaccine Route Administration Date Status Influenza [...] Education Language: Question Answer Notes Languages spoken: Arabic Sikhism: Question Answer Notes Sikhism yazdanism beliefs do not impact healthcare Sexual Hx: [...] a: current smoker Smoking Cessation Information Given 09/11/2020 Patient counseled on the dangers of tobacco use and urged to quit: 09/11/2020 How many cigarettes a day do you smoke? 6-10 REASON FOR REFERRAL No Information VITAL SIGNS No information MEDICATIONS Medication SIG (Take, Route, Frequency, Duration) Notes Start Da te End Date Status Spironolactone 25 mg take 2 tablet by mouth every day Oral Daily Active Pantoprazole Sodium 40 MG 1 tablet Orally BID with food Active Nicoderm CQ 21 MG/24HR 1 patch to skin Transdermal Once a day Jul, Active Carvedilol 12.5 MG 1 tablet with food Orally Twice a day 2 Jul, Active Lactulose 10 GM/15ML TAKE 30ML BY MOUTH THREE TIMES A DAY Oral Active Torsemide 20 MG 1 tab Orally Daily for 30 Days Active PROCEDURES No Information RESULTS No Results [...] removed from neck in 1979 Hospitalization History [place] [address] Hospitalization History [facility] back facture 05/2020 [place] No Information Health Concerns No Information MEDICAL EQUIPMENT No Information MENTAL STATUS No Information FUNCTIONAL STATUS No Information ASSESSMENTS No Information PLAN OF TREATMENT Medication Medication Name Sig Start Date Stop Date Spironolactone 25 mg take 2 tablet by mouth every day Oral Daily Lactulose 10 GM/15ML TAKE 30ML BY MOUTH THREE TIMES A DAY Oral Torsemide 20 MG 1 tab Orally Daily for 30 Days Carvedilol 12.5 MG 1 tablet with food Orally Twice a day Jul, Pantoprazole Sodium 40 MG 1 tablet Orally BID with food Nicoderm CQ 21 MG/24HR 1 patch to skin Transdermal Once a day Jul, Next Appt Details Provider Name:Pelon Elam, 2020-12-11 10 :00:00 AM, Alysia ABERNATHY, , [place], [address], Insurance Providers Payer Name Payer Address Payer Phone Insured Name Patient Relati onship to Insured Coverage Start Date Coverage End Date [facility] [address] [facility] [phone] ADDISON ZUÑIGA
--- OUTSIDE RECORDS SUMMARY | 2021-01-01 09:15 | CCD ---
Author Author [facility] Organization [facility] Address Unknown Phone Unavailable Care Team Providers Care Diorama Model Maker Name Role Phone Pelon Elam Unavailable PROBLEMS Type Condition ICD9-CM Code [id number] Code Onset Dates Condition S tatus W/U Status Risk SNOMED Code Notes Problem Elevated blood sugar R73.9 Active confirmed 151487655 Problem Other cirrhosis of liver K74.69 Active confirmed 56485092 Problem Hepatic cirrhosis, unspecified hepatic cirrhosis type K74.60 Active confirmed 58569344 Problem Alcohol abuse F10.10 Active confirmed 692269 05 Problem Cirrhosis of liver K74.60 Active confirmed 1 5584785 Problem Esophageal varices without b leeding, unspecified esophageal varices type I85.00 Active confirmed 31010574 Problem Nicotine dependence, uncomplicated, unspecified nicotine product type F17.200 Active confirmed 15420561 Problem Essential (primary) hypertension I10 Active conf irmed 63701508 Problem Esophageal varices I85.00 Active confirmed 2 8552706 Problem Gastro-esophageal reflux disease without esophagitis K21.9 Active confirmed 529516978 Problem Dyslipidemia E78.5 Active confirmed 0808012 07 Problem Inguinal hernia of left side without obstruction or gangre ne K40.90 Active confirmed 538748354 Problem Epididymitis, right N45.1 Active confirmed 35235279 Problem T12 burst fracture S22.081A Active confirmed 667522090 Problem Umbilical hernia without obstruction and without gangrene K42.9 Active confirmed 917991373 Problem Vitamin D deficiency, unspecified E55.9 Active con firmed 69651146 Problem 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 Activ e confirmed 4664482520909894 Problem Type 2 diabetes mellitus wit h complication, without long-term current use of insulin E11.8 Active confirmed 52517105 Problem Other hyperlipidemia E78.4 Active confirmed 34685837 Problem Chronic hepatitis C B18.2 Active confirmed 749651541 Problem Jaundice R17 Active confirmed 34374656 Problem Other ascites R18.8 Active confirmed 689451 000 Problem Unspecified cirrhosis of liver K74.60 Active confir med 77457663 Problem Nicotine dependence with juwan otine-induced disorder, unspecified nicotine product type F17.209 Active confirmed 15929485 ALLERGIES No Known Allergies ENCOUNTERS from 1960 to 2020-10-03 Encounter Location Date Provider Diagnosis [facility] [address] [facility] [phone] [place] [address] 10 Sep, 2020 Pelon [place] IMMUNIZATIONS Vaccine Route Administration Date Status Influenza [...] Education Language: Question Answer Notes Languages spoken: [place] Islander Sikh: Question Answer Notes Sikh mandaeism beliefs do not impact healthcare Sexual Hx: [...] Information RESULTS No Results REASON FOR VISIT PA Torsemide 10mg tablets MEDICAL (GENERAL) HISTORY Type Description Date Medical [...] removed from neck in 1979 Hospitalization History [place] [address] Hospitalization History [facility] back facture 05/2020 [...] 2020-12-11 10 :00:00 AM, Alysia ABERNATHY, , [place], [address], Insurance Providers Payer Name Payer Address Payer Phone Insured Name Patient Relati onship to Insured Coverage Start Date Coverage End Date [facility] [address] [facility] [id number] ADDISON ZUÑIGA
--- OUTSIDE RECORDS SUMMARY | 2021-01-01 09:18 | CCD ---
Author Author [facility] Organization [facility] Address Unknown Phone Unavailable Care Team Providers Care Chancellor Name Role Phone MAGUIRE ., TIMUR DO Unavailable Unavailable MAGUIRE ., TIMUR DO Unavailable Unavailable DEBBIE Castillo MD Unavailable Unavailable MbameDEBBIE MD Unavailable Unavailable MbDEBBIE morales MD Unavailable Unavailable MbDEBBIE morales MD Unavailable Unavailable MbameDEBBIE MD Unavailable Unavailable MbameDEBBIE MD Unavailable Unavailable Lolita FRANCO Unavailable Unavailable Ramos, Nelli VETERANS SERVICE OFFICER Unavailable Unavailable Ramos, Nelli VETERANS SERVICE OFFICER Unavailable Unavailable Ramos, Nelli VETERANS SERVICE OFFICER Unavailable Unavailable Ramos, Nelli VETERANS SERVICE OFFICER Unavailable Unavailable Ramos, Nelli VETERANS SERVICE OFFICER Unavailable Unavailable Ramos, Nelli VETERANS SERVICE OFFICER Unavailable Unavailable Ramos, Nelli VETERANS SERVICE OFFICER Unavailable Unavailable Ramos, Nelli VETERANS SERVICE OFFICER Unavailable Unavailable Ramos, Nelli VETERANS SERVICE OFFICER Unavailable Unavailable Ramos, Nelli VETERANS SERVICE OFFICER Unavailable Unavailable Ramos, Nelli VETERANS SERVICE OFFICER Unavailable Unavailable Ramos, Nelli VETERANS SERVICE OFFICER Unavailable Unavailable Ramos, Nelli VETERANS SERVICE OFFICER Unavailable Unavailable Ramos, Nelli VETERANS SERVICE OFFICER Unavailable Unavailable Ramos, Nelli VETERANS SERVICE OFFICER Unavailable Unavailable Ramos, Nelli VETERANS SERVICE OFFICER Unavailable Unavailable Ramos, Nelli VETERANS SERVICE OFFICER Unavailable Unavailable Ramos, Nelli VETERANS SERVICE OFFICER Unavailable Unavailable Ramos, Nelli VETERANS SERVICE OFFICER Unavailable Unavailable Ramos, Nelli VETERANS SERVICE OFFICER Unavailable Unavailable Ramos, Nelli VETERANS SERVICE OFFICER Unavailable Unavailable Ramos, Nelli VETERANS SERVICE OFFICER Unavailable Unavailable Ramos, Nelli VETERANS SERVICE OFFICER Unavailable Unavailable Ramos, Nelli VETERANS SERVICE OFFICER Unavailable Unavailable Ramos, Nelli VETERANS SERVICE OFFICER Unavailable Unavailable Ramos, Nelli VETERANS SERVICE OFFICER Unavailable Unavailable Ramos, Nelli VETERANS SERVICE OFFICER Unavailable Unavailable Ramos, Nelli VETERANS SERVICE OFFICER Unavailable Unavailable Ramos, Nelli VETERANS SERVICE OFFICER Unavailable Unavailable Ramos, Nelli VETERANS SERVICE OFFICER Unavailable Unavailable Ramos, Nelli VETERANS SERVICE OFFICER Unavailable Unavailable Ramos, Nelli VETERANS SERVICE OFFICER Unavailable Unavailable Ramos, Nelli VETERANS SERVICE OFFICER Unavailable Unavailable Ramos, Nelli VETERANS SERVICE OFFICER Unavailable Unavailable Ramos, Nelli VETERANS SERVICE OFFICER Unavailable Unavailable Ramos, Nelli VETERANS SERVICE OFFICER Unavailable Unavailable Ramos, Nelli VETERANS SERVICE OFFICER Unavailable Unavailable Ramos, Nelli VETERANS SERVICE OFFICER Unavailable Unavailable Ramos, Nelli VETERANS SERVICE OFFICER Unavailable Unavailable Ramos, Nelli VETERANS SERVICE OFFICER Unavailable Unavailable Ramos, Nelli VETERANS SERVICE OFFICER Unavailable Unavailable David SIMONS MD Unavailable Unavailable David SIMONS MD Unavailable Unavailable David SIMONS MD Unavailable Unavailable David SIMONS MD Unavailable Unavailable SYMENOW, G CHRISTOPHER PA Unavailable Unavailable SYMENOW, G CHRISTOPHER PA Unavailable Unavailable SYMENOW, G CHRISTOPHER PA Unavailable Unavailable SYMENOW, G CHRISTOPHER PA Unavailable Unavailable SYMENOW, G CHRISTOPHER PA Unavailable Unavailable SYMENOW, G CHRISTOPHER PA Unavailable Unavailable SYMENOW, G CHRISTOPHER PA Unavailable Unavailable SYMENOW, G CHRISTOPHER PA Unavailable Unavailable SYMENOW, G CHRISTOPHER PA Unavailable Unavailable SYMENOW, G CHRISTOPHER PA Unavailable Unavailable SYMENOW, G CHRISTOPHER PA Unavailable Unavailable SYMENOW, G CHRISTOPHER PA Unavailable Unavailable SYMENOW, G CHRISTOPHER PA Unavailable Unavailable SYMENOW, G CHRISTOPHER PA Unavailable Unavailable SYMENOW, G CHRISTOPHER PA Unavailable Unavailable SYMENOW, G CHRISTOPHER PA Unavailable Unavailable Tatyana RAHMAN MD Unavailable Unavailable Tatyana RAHMAN MD Unavailable Unavailable Tatyana RAHMAN MD Unavailable Unavailable Tatyana RAHMAN MD Unavailable Unavailable Tatyana RAHMAN MD Unavailable Unavailable Tatyana RAHMAN MD Unavailable Unavailable Tatyana RAHMAN MD Unavailable Unavailable Tatyana RAHMAN MD Unavailable Unavailable Tatyana RAHMAN MD Unavailable Unavailable Tatyana RAHMAN MD Unavailable Unavailable Tatyana RAHMAN MD Unavailable Unavailable Tatyana RAHMAN MD Unavailable Unavailable Tatyana RAHMAN MD Unavailable Unavailable Tatyana RAHMAN MD Unavailable Unavailable JOSIAH, Tatyana FRIEND MD Unavailable Unavailable JOSIAH, Tatyana FRIEND MD Unavailable Unavailable JOSIAH, Tatyana FRIEND MD Unavailable Unavailable JOSIAH, Tatyana FRIEND MD Unavailable Unavailable JOSIAH, Tatyana FRIEND MD Unavailable Unavailable JOSIAH, Tatyana FRIEND MD Unavailable Unavailable JOSIAH, Tatyana FRIEND MD Unavailable Unavailable JOSIAH, Tatyana FRIEND MD Unavailable Unavailable JOSIAH, Tatyana FRIEND MD Unavailable Unavailable JOSIAH, Tatyana FRIEND MD Unavailable Unavailable JOSIAH, Tatyana FRIEND MD Unavailable Unavailable JOSIAH, Tatyana FRIEND MD Unavailable Unavailable JOSIAH, Tatyana FRIEND MD Unavailable Unavailable JOSIAH, Tatyana FRIEND MD Unavailable Unavailable JOSIAH, Tatyana FRIEND MD Unavailable Unavailable JOSIAH, Tatyana FRIEND MD Unavailable Unavailable JOSIAH, Tatyana FRIEND MD Unavailable Unavailable JOSIAH, Tatyana FRIEND MD Unavailable Unavailable JOSIAH, Tatyana FRIEND MD Unavailable Unavailable JOSIAH, Tatyana FRIEND MD Unavailable Unavailable JOSIAH, Tatyana FRIEND MD Unavailable Unavailable JOSIAH, Tatyana FRIEND MD Unavailable Unavailable JOSIAH, Tatyana FRIEND MD Unavailable Unavailable JOSIAH, Tatyana FRIEND MD Unavailable Unavailable JOSIAH, Tatyana FRIEND MD Unavailable Unavailable JOSIAH, Tatyana FRIEND MD Unavailable Unavailable JOSIAH, Tatyana FRIEND MD Unavailable Unavailable JOSIAH, Tatyana FRIEND MD Unavailable Unavailable JOSIAH, Tatyana FRIEND MD Unavailable Unavailable JOSIAH, Tatyana FRIEND MD Unavailable Unavailable JOSIAH, Tatyana FRIEND MD Unavailable Unavailable JOSIAH, Tatyana FRIEND MD Unavailable Unavailable JOSIAH, Tatyana FRIEND MD Unavailable Unavailable JOSIAH, Tatyana FRIEND MD Unavailable Unavailable JOSIAH, Tatyana FRIEND MD Unavailable Unavailable JOSIAH, Tatyana FRIEND MD Unavailable Unavailable JOSIAH, Tatyana FRIEND MD Unavailable Unavailable JOSIAH, Tatyana FRIEND MD Unavailable Unavailable JOSIAH, Tatyana FRIEND MD Unavailable Unavailable JOSIAH, Tatyana FRIEND MD Unavailable Unavailable JOSIAH, Tatyana FRIEND MD Unavailable Unavailable JOSIAH, Tatyana FRIEND MD Unavailable Unavailable JOSIAH, Tatyana FRIEND MD Unavailable Unavailable JOSIAH, Tatyana FRIEND MD Unavailable Unavailable JOSIAH, Tatyana FRIEND MD Unavailable Unavailable JOSIAH, Tatyana FRIEND MD Unavailable Unavailable JOSIAH, Tatyana FRIEND MD Unavailable Unavailable JOSIAH, Tatyana FRIEND MD Unavailable Unavailable JOSIAH, Tatyana FRIEND MD Unavailable Unavailable JOSIAH, Tatyana FRIEND MD Unavailable Unavailable JOSIAH, Tatyana FRIEND MD Unavailable Unavailable JOSIAH, Tatyana FRIEND MD Unavailable Unavailable JOSIAH, Tatyana FRIEND MD Unavailable Unavailable JOSIAH, Tatyana FRIEND MD Unavailable Unavailable JOSIAH, Tatyana FRIEND MD Unavailable Unavailable JOSIAH, Tatyana FRIEND MD Unavailable Unavailable JOSIAH, Tatyana FRIEND MD Unavailable Unavailable JOSIAH, Tatyana FRIEND MD Unavailable Unavailable JOSIAH, Tatyana FRIEND MD Unavailable Unavailable JOSIAH, Tatyana FRIEND MD Unavailable Unavailable JOSIAH, Tatyana FRIEND MD Unavailable Unavailable JOSIAH, Tatyana FRIEND MD Unavailable Unavailable JOSIAH, Tatyana FRIEND MD Unavailable Unavailable JOSIAH, F RONNA MD Unavailable Unavailable Tatyana RAHMAN MD Unavailable Unavailable Tatyana RAHMAN MD Unavailable Unavailable Tatyana RAHMAN MD Unavailable Unavailable Tatyana RAHMAN MD Unavailable Unavailable Tatyana RAHMAN MD Unavailable Unavailable Tatyana RAHMAN MD Unavailable Unavailable Tatyana RAHMAN MD Unavailable Unavailable Tatyana RAHMAN MD Unavailable Unavailable Tatyana RAHMAN MD Unavailable Unavailable Tatyana RAHMAN MD Unavailable Unavailable Tatyana RAHMAN MD Unavailable Unavailable Tatyana RAHMAN MD Unavailable Unavailable Tatyana RAHMAN MD Unavailable Unavailable Tatyana RAHMAN MD Unavailable Unavailable Tatyana RAHMAN MD Unavailable Unavailable Tatyana RAHMAN MD Unavailable Unavailable Tatyana RAHMAN MD Unavailable Unavailable Tatyana RAHMAN MD Unavailable Unavailable Taytana RAHMAN MD Unavailable Unavailable Tatyana RAHMAN MD Unavailable Unavailable Tatyana RAHMAN MD Unavailable Unavailable Tatyana RAHMAN MD Unavailable Unavailable HILL PA, W CAROLA PA Unavailable Unavailable HILL PA, W CAROLA PA Unavailable Unavailable SYMENOW, G CHRISTOPHER PA Unavailable Unavailable SYMENOW, G CHRISTOPHER PA Unavailable Unavailable SYMENOW, G CHRISTOPHER PA Unavailable Unavailable SYMENOW, G CHRISTOPHER PA Unavailable Unavailable SYMENOW, G CHRISTOPHER PA Unavailable Unavailable SYMENOW, G CHRISTOPHER PA Unavailable Unavailable SYMENOW, G CHRISTOPHER PA Unavailable Unavailable SYMENOW, G CHRISTOPHER PA Unavailable Unavailable SYMENOW, G CHRISTOPHER PA Unavailable Unavailable SYMENOW, G CHRISTOPHER PA Unavailable Unavailable SYMENOW, G CHRISTOPHER PA Unavailable Unavailable SYMENOW, G CHRISTOPHER PA Unavailable Unavailable SYMENOW, G CHRISTOPHER PA Unavailable Unavailable SYMENOW, G CHRISTOPHER PA Unavailable Unavailable SYMENOW, G CHRISTOPHER PA Unavailable Unavailable SYMENOW, G CHRISTOPHER PA Unavailable Unavailable JACKELINE, RONNA KARLA PA Unavailable Unavailable JACKELINE, RONNA KARLA PA Unavailable Unavailable JACKELINE, RONNA KARLA PA Unavailable Unavailable JACKELINE, RONNA KARLA PA Unavailable Unavailable JACKELINE, RONNA KARLA PA Unavailable Unavailable JACKELINE, RONNA KARLA PA Unavailable Unavailable JACKELINE, RONNA KARLA PA Unavailable Unavailable JACKELINE, RONNA KARLA PA Unavailable Unavailable JACKELINE, RONNA KARLA PA Unavailable Unavailable JACKELINE, RONNA KARLA PA Unavailable Unavailable JACKELINE, RONNA KARLA PA Unavailable Unavailable JACKELINE, RONNA KARLA PA Unavailable Unavailable JACKELINERONNA MANRIQUEZ PA Unavailable Unavailable JACKELINERONNA PA Unavailable Unavailable JACKELINERONNA MANRIQUEZ PA Unavailable Unavailable JACKELINERONNA MANRIQUEZ PA Unavailable Unavailable JACKELINERONNA MANRIQUEZ PA Unavailable Unavailable JACKELINERONNA PA Unavailable Unavailable JACKELINERONNA PA Unavailable Unavailable JACKELINERONNA PA Unavailable Unavailable JACKELINERONNA PA Unavailable Unavailable JACKELINERONNA PA Unavailable Unavailable Axel Zepeda MD Unavailable Unavailable Axel Zepeda MD Unavailable Unavailable Axel Zepeda MD Unavailable Unavailable Axel Zepeda MD Unavailable Unavailable Axel Zepeda MD Unavailable Unavailable Axel Zepeda MD Unavailable Unavailable Axel Zepeda MD Unavailable Unavailable Axel Zepeda MD Unavailable Unavailable Axel Zepeda MD Unavailable Unavailable Axel Zepeda MD Unavailable Unavailable Axel Zepeda MD Unavailable Unavailable Axel Zepeda MD Unavailable Unavailable Axel Zepeda MD Unavailable Unavailable Axel Zepeda MD Unavailable Unavailable Axel Zepeda MD Unavailable Unavailable Axel Zepeda MD Unavailable Unavailable Axel Zepeda MD Unavailable Unavailable Axel Zepeda MD Unavailable Unavailable Axel Zepeda MD Unavailable Unavailable Axel Zepeda MD Unavailable Unavailable Axel Zepeda MD Unavailable Unavailable Axel Zepeda MD Unavailable Unavailable Axel Zepeda MD Unavailable Unavailable Axel Zepeda MD Unavailable Unavailable Axel Zepeda MD Unavailable Unavailable Axel Zepeda MD Unavailable Unavailable Axel Zepeda MD Unavailable Unavailable Axel Zepeda MD Unavailable Unavailable Axel Zepeda MD Unavailable Unavailable Axel Zepeda MD Unavailable Unavailable Axel Zepeda MD Unavailable Unavailable Axel Zepeda MD Unavailable Unavailable Axel Zepeda MD Unavailable Unavailable Axel Zepeda MD Unavailable Unavailable Axel Zepeda MD Unavailable Unavailable Axel Zepeda MD Unavailable Unavailable Axel Zepead MD Unavailable Unavailable Axel Zepeda MD Unavailable Unavailable SleisaelkaBaritech Unavailable Unavailable SlezkaBaritech Unavailable Unavailable SlezkaTujtech Unavailable Unavailable SlezkaBaritech Unavailable Unavailable SlezkaTujtech MD Unavailable Unavailable SlezkaBaritech Unavailable Unavailable SlezkaTujtech Unavailable Unavailable SlezkaTujtech Unavailable Unavailable SlezkaTujtech Unavailable Unavailable SlezkaTujtech MD Unavailable Unavailable SlezkaTujtech MD Unavailable Unavailable SlezkaTujtech MD Unavailable Unavailable SlezkaTujtech MD Unavailable Unavailable SlezkaTujtech MD Unavailable Unavailable Slezka Vojtech MD Unavailable Unavailable SlezkaTujtech MD Unavailable Unavailable SlezkaTujtech MD Unavailable Unavailable SleisaelkaTujtech MD Unavailable Unavailable SleBari hurttech Unavailable Unavailable SleAxel hurt MD Unavailable Unavailable SleAxel hurt MD Unavailable Unavailable REINDL, JOANIE ANDERSEN Unavailable Unavailable REINDL, JOANIE ANDERSEN Unavailable Unavailable REINDL, JOANIE ANDERSEN Unavailable Unavailable REINDL, JOANIE ANDERSEN Unavailable Unavailable REINDL, JOANIE ANDERSEN Unavailable Unavailable REINDL, JOANIE ANDERSEN Unavailable Unavailable REINDL, JOANIE ANDERSEN Unavailable Unavailable REINDL, JOANIE ANDERSEN Unavailable Unavailable REINDL, JOANIE ANDERSEN Unavailable Unavailable REINDL, JOANIE ANDERSEN Unavailable Unavailable REINDL, JOANIE ANDERSEN Unavailable Unavailable REINDL, JOANIE ANDERSEN Unavailable Unavailable REINDL, JOANIE ANDERSEN Unavailable Unavailable REINDL, JOANIE ANDERSEN Unavailable Unavailable REINDL, JOANIE ANDERSEN Unavailable Unavailable REINDL, JOANIE ANDERSEN Unavailable Unavailable REINDL, JOANIE ANDERSEN Unavailable Unavailable REINDL, JOANIE ANDERSEN Unavailable Unavailable REINDL, JOANIE ANDERSEN Unavailable Unavailable REINDL, JOANIE ANDERSEN Unavailable Unavailable REINDL, JOANIE ANDERSEN Unavailable Unavailable REINDL, JOANIE ANDERSEN Unavailable Unavailable REINDL, JOANIE ANDERSEN Unavailable Unavailable REINDL, JOANIE ANDERSEN Unavailable Unavailable REINDL, JOANIE ANDERSEN Unavailable Unavailable REINDL, JOANIE ANDERSEN Unavailable Unavailable REINDL, JOANIE ANDERSEN Unavailable Unavailable REINDL, JOANIE ANDERSEN Unavailable Unavailable REINDL, JOANIE ANDERSEN Unavailable Unavailable REINDL, JOANIE ANDERSEN Unavailable Unavailable REINDL, JOANIE ANDERSEN Unavailable Unavailable REINDL, JOANIE ANDERSEN Unavailable Unavailable REINDL, JOANIE ANDERSEN Unavailable Unavailable REINDL, JOANIE ANDERSEN Unavailable Unavailable REINDL, JOANIE ANDERSEN Unavailable Unavailable REINDL, JOANIE ANDERSEN Unavailable Unavailable REINDL, JOANIE ANDERSEN Unavailable Unavailable REINDL, JOANIE ANDERSEN Unavailable Unavailable REINDL, JOANIE ANDERSEN Unavailable Unavailable REINDL, JOANIE ANDERSEN Unavailable Unavailable REINDL, JOANIE ANDERSEN Unavailable Unavailable REINDL, JOANIE ANDERSEN Unavailable Unavailable RAMOS, NELLI Unavailable Unavailable RAMOS, NELLI Unavailable Unavailable Lolita OMALLEY MD Unavailable Unavailable Lolita OMALLEY MD Unavailable Unavailable Lolita OMALLEY MD Unavailable Unavailable Lolita OMALLEY MD Unavailable Unavailable Lolita OMALLEY MD Unavailable Unavailable Lolita OMALLEY MD Unavailable Unavailable Lolita OMALLEY MD Unavailable Unavailable Lolita OMALLEY MD Unavailable Unavailable BAUDILIO LOPEZ MD Unavailable Unavailable BAUDILIO LOPEZ MD Unavailable Unavailable BAUDILIO LOPEZ MD Unavailable Unavailable BAUDILIO LOPEZ MD Unavailable Unavailable BAUDILIO LOPEZ MD Unavailable Unavailable BAUDILIO LOPEZ MD Unavailable Unavailable BAUDILIO LOPEZ MD Unavailable Unavailable BAUDILIO LOPEZ MD Unavailable Unavailable BAUDILIO LOPEZ MD Unavailable Unavailable BAUDILIO LOPEZ MD Unavailable Unavailable BAUDILIO LOPEZ MD Unavailable Unavailable BAUDILIO LOPEZ MD Unavailable Unavailable BAUDILIO LOPEZ MD Unavailable Unavailable BAUDILIO LOPEZ MD Unavailable Unavailable BAUDILIO LOPEZ MD Unavailable Unavailable BAUDILIO LOPEZ MD Unavailable Unavailable BAUDILIO LOPEZ MD Unavailable Unavailable CREAMERLakisha MD Unavailable Unavailable CREAMERLakisha MD Unavailable Unavailable CREAMERLakisha MD Unavailable Unavailable CREAMERLakisha MD Unavailable Unavailable CREAMERLakisha MD Unavailable Unavailable CREAMERLakisha MD Unavailable Unavailable CREAMERLakisha MD Unavailable Unavailable CREAMERLakisha MD Unavailable Unavailable CREAMERLakisha MD Unavailable Unavailable CREAMERLakisha MD Unavailable Unavailable CREAMERLakisha MD Unavailable Unavailable CREAMERLakisha MD Unavailable Unavailable CREAMERLakisha MD Unavailable Unavailable CREAMERLakisha MD Unavailable Unavailable CREAMERLakisha MD Unavailable Unavailable CREAMERLakisha MD Unavailable Unavailable CREAMERLakisha MD Unavailable Unavailable CREAMERLakisha MD Unavailable Unavailable CREAMERLakisha MD Unavailable Unavailable CREAMERLakisha MD Unavailable Unavailable CREAMERLakisha MD Unavailable Unavailable CREAMERLakisha MD Unavailable Unavailable CREAMERLakisha MD Unavailable Unavailable CREAMERLakisha MD Unavailable Unavailable CREAMERLakisha MD Unavailable Unavailable CREAMERLakisha MD Unavailable Unavailable CREAMERLakisha MD Unavailable Unavailable CREAMER, Lakisha PETER MD Unavailable Unavailable CREAMER, Lakisha PETER MD Unavailable Unavailable CREAMER, Lakisha PETER MD Unavailable Unavailable CREAMER, Lakisha PETER MD Unavailable Unavailable CREAMER, Lakisha PETER MD Unavailable Unavailable Etna, V AMY PA-C Unavailable Unavailable Nerissa, V AMY PA-C Unavailable Unavailable Etna, V AMY PA-C Unavailable Unavailable Etna, V AMY PA-C Unavailable Unavailable Etna, V AMY PA-C Unavailable Unavailable Etna, V AMY PA-C Unavailable Unavailable Etna, V AMY PA-C Unavailable Unavailable Etna, V AMY PA-C Unavailable Unavailable Etna, V AMY PA-C Unavailable Unavailable Etna, V AMY PA-C Unavailable Unavailable Etna, V AMY PA-C Unavailable Unavailable Etna, V AMY PA-C Unavailable Unavailable Nerissa, V AMY PA-C Unavailable Unavailable Nerissa, V AMY PA-C Unavailable Unavailable Bunting, L Dat VETERANS SERVICE OFFICER Unavailable Unavailable [place], Alyson Mtz MD Unavailable Unavailable [place], Alyson Mtz MD Unavailable Unavailable [place], Alyson Mtz MD Unavailable Unavailable [place], Alyson Mtz MD Unavailable Unavailable [place], Alyson Mtz MD Unavailable Unavailable [place], Alyson Mtz MD Unavailable Unavailable [place], Alyson Mtz MD Unavailable Unavailable [place], Alyson Mtz MD Unavailable Unavailable [place], Alyson Mtz MD Unavailable Unavailable [place], Alyson Mtz MD Unavailable Unavailable [place], Alyson Mtz MD Unavailable Unavailable [place], Alyson Mtz MD Unavailable Unavailable [place], Alyson Mtz MD Unavailable Unavailable [place], Alyson Mtz MD Unavailable Unavailable [place], Alyson Mtz MD Unavailable Unavailable [place], Alyson Mtz MD Unavailable Unavailable [place], Alyson Mtz MD Unavailable Unavailable [place], Alyson Mtz MD Unavailable Unavailable [place], Alyson Mtz MD Unavailable Unavailable [place], Alyson Mtz MD Unavailable Unavailable [place], Alyson Mtz MD Unavailable Unavailable [place], Alyson Mtz MD Unavailable Unavailable [place], Alyson Mtz MD Unavailable Unavailable [place], Alyson Mtz MD Unavailable Unavailable [place], Alyson Mtz MD Unavailable Unavailable [place], Alyson Mtz MD Unavailable Unavailable [place], Alyson Mtz MD Unavailable Unavailable [place], Alyson Mtz MD Unavailable Unavailable [place], Alyson Mtz MD Unavailable Unavailable [place], Alyson Mtz MD Unavailable Unavailable [place], Alyson Mtz MD Unavailable Unavailable [place], A Smith MD Unavailable Unavailable [place], A Smith MD Unavailable Unavailable [place], A Smith MD Unavailable Unavailable [place], A Smith MD Unavailable Unavailable [place], A Smith MD Unavailable Unavailable [place], A Smith MD Unavailable Unavailable [place], A Smith MD Unavailable Unavailable [place], A Smith MD Unavailable Unavailable [place], A Smith MD Unavailable Unavailable [place], A Smith MD Unavailable Unavailable [place], A Smith MD Unavailable Unavailable [place], A Smith MD Unavailable Unavailable [place], A Smith MD Unavailable Unavailable [place], A Smith MD Unavailable Unavailable [place], A Smith MD Unavailable Unavailable [place], A Smith MD Unavailable Unavailable [place], A Smith MD Unavailable Unavailable [place], A Smith MD Unavailable Unavailable [place], A Smith MD Unavailable Unavailable [place], A Smith MD Unavailable Unavailable [place], A Smith MD Unavailable Unavailable [place], A Smith MD Unavailable Unavailable [place], A Smith MD Unavailable Unavailable [place], A Smith MD Unavailable Unavailable [place], A Smith MD Unavailable Unavailable [place], A Smith MD Unavailable Unavailable [place], A Smith MD Unavailable Unavailable [place], A Smith MD Unavailable Unavailable [place], A Smith MD Unavailable Unavailable [place], A Smith MD Unavailable Unavailable [place], A Smith MD Unavailable Unavailable [place], A Smith MD Unavailable Unavailable [place], A Smith MD Unavailable Unavailable [place], A Smith MD Unavailable Unavailable [place], A Smith MD Unavailable Unavailable [place], A Smith MD Unavailable Unavailable [place], A Smith MD Unavailable Unavailable [place], A Smith MD Unavailable Unavailable [place], A Smith MD Unavailable Unavailable [place], A Smith MD Unavailable Unavailable [place], A Smith MD Unavailable Unavailable [place], A Smith MD Unavailable Unavailable [place], A Smith MD Unavailable Unavailable [place], A Smith MD Unavailable Unavailable [place], A Smith MD Unavailable Unavailable [place], A Smith MD Unavailable Unavailable [place], A Smith MD Unavailable Unavailable [place], A Smith MD Unavailable Unavailable [place], A Smith MD Unavailable Unavailable [place], A Smith MD Unavailable Unavailable [place], A Smith MD Unavailable Unavailable [place], A Smith MD Unavailable Unavailable [place], A Smith MD Unavailable Unavailable [place], A Smith MD Unavailable Unavailable [place], A Smith MD Unavailable Unavailable David Elam MD Unavailable Unavailable David Elam MD Unavailable Unavailable David Elam MD Unavailable Unavailable David Elam MD Unavailable Unavailable David Elam MD Unavailable Unavailable David Elam MD Unavailable Unavailable David Elam MD Unavailable Unavailable David Elam MD Unavailable Unavailable David Elam MD Unavailable Unavailable David Elam MD Unavailable Unavailable David Elam MD Unavailable Unavailable David Elam MD Unavailable Unavailable David Elam MD Unavailable Unavailable David Elam MD Unavailable Unavailable David Elam MD Unavailable Unavailable David Elam MD Unavailable Unavailable David Elam MD Unavailable Unavailable David Elam MD Unavailable Unavailable David Elam MD Unavailable Unavailable David Elam MD Unavailable Unavailable David Elam MD Unavailable Unavailable David Elam MD Unavailable Unavailable David Elam MD Unavailable Unavailable David Elam MD Unavailable Unavailable David Elam MD Unavailable Unavailable David Elam MD Unavailable Unavailable David Elam MD Unavailable Unavailable David Elam MD Unavailable Unavailable David Elam MD Unavailable Unavailable David Elam MD Unavailable Unavailable David Elam MD Unavailable Unavailable David Elam MD Unavailable Unavailable David Elam MD Unavailable Unavailable David Elam MD Unavailable Unavailable David Elam MD Unavailable Unavailable David Elam MD Unavailable Unavailable David Elam MD Unavailable Unavailable David Elam MD Unavailable Unavailable Davdi Elam MD Unavailable Unavailable David Elam MD Unavailable Unavailable David Elam MD Unavailable Unavailable David Elam MD Unavailable Unavailable David Elam MD Unavailable Unavailable David Elam MD Unavailable Unavailable David Elam MD Unavailable Unavailable David Elam MD Unavailable Unavailable David Elam MD Unavailable Unavailable David Elam MD Unavailable Unavailable David Elam MD Unavailable Unavailable David Elam MD Unavailable Unavailable David Elam MD Unavailable Unavailable David Elam MD Unavailable Unavailable David Elam MD Unavailable Unavailable David Elam MD Unavailable Unavailable David Elam MD Unavailable Unavailable David Elam MD Unavailable Unavailable David Elam MD Unavailable Unavailable David Elam MD Unavailable Unavailable David Elam MD Unavailable Unavailable David Elam MD Unavailable Unavailable David Elam MD Unavailable Unavailable David Elam MD Unavailable Unavailable David Elam MD Unavailable Unavailable David Elma MD Unavailable Unavailable David Elam MD Unavailable Unavailable David Elam MD Unavailable Unavailable ElamDavid carlson MD Unavailable Unavailable David Elam MD Unavailable Unavailable David Elam MD Unavailable Unavailable ElamDavid carlson MD Unavailable Unavailable David Elam MD Unavailable Unavailable ElamDavid carlson MD Unavailable Unavailable ElamDavid carlson MD Unavailable Unavailable David Elam MD Unavailable Unavailable Dhruv, M Balbina V[employer] SERVICE OFFICER Unavailable Unavailable Dhruv, M Balbina VETER[employer] SERVICE OFFICER Unavailable Unavailable Dhruv, M Balbina V[employer]ER[employer] SERVICE OFFICER Unavailable Unavailable Dhruv, M Balbina VETER[employer] SERVICE OFFICER Unavailable Unavailable Dhruv, M Balbina VETERANS SERVICE OFFICER Unavailable Unavailable Dhruv, M Balbina VETER[employer] SERVICE OFFICER Unavailable Unavailable Dhruv, M Balbina VETERANS SERVICE OFFICER Unavailable Unavailable Dhruv, M Balbina VETERANS SERVICE OFFICER Unavailable Unavailable Dhruv, M Balbina VETERANS SERVICE OFFICER Unavailable Unavailable Dhruv, M Balbina VETER[employer] SERVICE OFFICER Unavailable Unavailable Dhruv, M Balbina VETERANS SERVICE OFFICER Unavailable Unavailable Dhruv, M Balbina VETERANS SERVICE OFFICER Unavailable Unavailable Dhruv, M Balbina VETER[employer] SERVICE OFFICER Unavailable Unavailable Dhruv, M Balbina VETER[employer] SERVICE OFFICER Unavailable Unavailable Dhruv, M Balbina VETER[employer] SERVICE OFFICER Unavailable Unavailable Re-disclosure Warning The records that you are about to access may contain information from federally-assisted alcohol or drug abuse programs. If such information is present, then the following federally mandated warning applies: This information has been disclosed to you from records protected by federal confidentiality rules (42 CFR part 2). The federal rules prohibit you from making any further disclosure of this information unless further disclosure is expressly permitted by the written consent of the person to whom it pertains or as otherwise permitted by 42 CFR part 2. A general authorization for the release of medical or other information is NOT sufficient for this purpose. The Federal rules restrict any use of the information to criminally investigate or prosecute any alcohol or drug abuse patient.The records that you are about to access may contain highly sensitive health information, the redisclosure of which is protected by Article 27-F of the [facility] Public Health law. If you continue you may have access to information: Regarding HIV / AIDS; Provided by facilities licensed or operated by the [facility] Office of Mental Health; or Provided by the [facility] Office for People With Developmental Disabilities. If such information is present, then the following [facility] mandated warning applies: This information has been disclosed to you from confidential records which are protected by state law. State law prohibits you from making any further disclosure of this information without the specific written consent of the person to whom it pertains, or as otherwise permitted by law. Any unauthorized further disclosure in violation of state law may result in a fine or [place] health [facility] sentence or both. A general authorization for the release of medical or other information is NOT sufficient authorization for further disc losure. Allergies and Adverse Reactions Type Description Substance Reaction Status Data Source(s ) Propensity to adverse reactions NO KNOWN ALLERGIES NO KNOWN ALLERGIES [facility] Family History Family Member Name Family Member Gender Family Member Status Date o f Status Description Data Source(s) Unknown Unknown Problem MEDENT ([facility], ) mother Dx age 58 Encounters Encounter Providers Location Date Indications Data Source(s ) Outpatient 12/14/2020 12:00:00 AM EDT [facility] Outpatient Attender: JOANIE Alvarez/Kapil/Lasha/Sharron bianchi 12/12/2020 10:15:00 AM EDT [facility] ([facility], ) Unknown [address] [facility] [place] [address] 12/12/2020 12:00:00 AM EDT eCW1 ([facility]) Outpatient [address] [facility] [id number] 12/06/2020 12:00:00 AM EDT eCW1 ([facility]) Outpatient Attender: AMY LANDAVERDECReferrer: NELLI BLAIR SJP.DILLON-SJP.DILLON 12/03/2020 12:00:00 AM EDT - 12/03/2020 10:33:24 AM EDT [facility] Unknown [address] [facility] [place] [address] 11/14/2020 12:00:00 AM EDT eCW1 ([facility]) Unknown [address] [facility] [place] [address] 11/14/2020 12:00:00 AM EDT eCW1 ([facility]) Unknown [address] [facility] [place] [address] 11/12/2020 12:00:00 AM EDT eCW1 ([facility]) [place] [address] [facility] [address] 2020 12:00:00 AM EDT eCW1 ([facility]) Unknown [address] [facility] [address] 2020 12:00:00 AM EDT eCW1 ([facility]) (TCM) Transition of Care Visit [address] [place] [address] 10/24/2020 12:00:00 AM EDT eCW1 ([facility]) Unknown [address] [facility] [place] [address] 10/22/2020 12:00:00 AM EDT eCW1 ([facility]) Unknown [address] [facility] [place] [address] 10/16/2020 12:00:00 AM EDT eCW1 ([facility]) Unknown [address] [facility] [address] 10/12/2020 12:00:00 AM EDT eCW1 ([facility]) Outpatient Attender: AMY KIRAN-CReferrer: NELLI BLAIR SJP.DILLON-SJP.DILLON 10/02/2020 12:00:00 AM EDT - 10/02/2020 11:06:04 AM EDT [facility] Unknown [address] [facility] [place] [address] 10/02/2020 12:00:00 AM EDT eCW1 ([facility]) Unknown [address] [facility] [address] 10/01/2020 12:00:00 AM EDT eCW1 ([facility]) Unknown [address] [facility] [address] 09/14/2020 12:00:00 AM EDT eCW1 ([facility]) Unknown [address] [facility] [place] [address] 09/11/2020 12:00:00 AM EDT [facility] [address] [facility] [address] 09/11/2020 12:00:00 AM EDT [facility]CW1 [facility]) Outpatient Attender: RONNA RAHMAN MDReferrer: Pelon Elam MD [id number] 09/07/2020 12:00:00 AM EDT - 09/07/2020 11:20:50 AM EDT Stable burst fracture of unspecified thoracic vertebra, initial encounter for closed fracture [facility] Stable burst fracture of unspecified tho racic vertebra, initial encounter for closed fracture Outpatient Referrer: RONNA RAHMAN MD 09/07/2020 1 2:00:00 AM EDT Stable burst fracture of unspecified thoracic vertebra, initial encounter for closed fracture [facility] Stable burst fracture of unspecified tho racic vertebra, initial encounter for closed fracture Outpatient Attender: AMY KIRAN-CReferrer: NELLI BLAIR SJP.DILLON-SJP.DILLON 09/03/2020 02:29:12 PM EDT - 09/03/2020 04:02:43 PM EDT [facility] Unknown [address] [facility] [address] 08/30/2020 12:00:00 AM EDT eCW1 ([facility]) Unknown [address] [facility] [address] 08/15/2020 12:00:00 AM EDT [facility]CW1 ([facility] [place] [address] [facility] [address] 08/14/2020 12:00:00 AM EDT [facility]CW1 [facility] [place] [address] [facility] [address] 08/14/2020 12:00:00 AM EDT [facility]CW1 [facility] [place] [address] [facility] [place] [address] 08/07/2020 12:00:00 AM EDT eCW1 ([facility]) Unknown [address] [facility] [address] 08/06/2020 12:00:00 AM EDT eCW1 ([facility]) Unknown [address] [facility] [address] 07/31/2020 12:00:00 AM EDT eCW1 ([facility]) Outpatient [address] [facility] [address] 07/31/2020 12:00:00 AM EDT eCW1 ([facility]) Unknown [address] [facility] [address] 07/30/2020 12:00:00 AM EDT eCW1 ([facility]) Outpatient [address] [facility] [address] 07/25/2020 12:00:00 AM EDT eCW1 ([facility]) Outpatient Referrer: Dat Lai [facility] 07/16/2020 12:00:00 AM EDT [facility] Emergency Attender: LEON FAROOQ PAReferrer : Nelli Ramos [facility] EMERGENCY ROOM-ER 07/14/2020 06:15:00 PM EDT - 07/14/2020 09:25:00 PM EDT [facility] Patient discharged. Outpatient Attender: BAUDILIO LOPEZ MDAt tender: ROME HERNANDEZ MDAttender: BERT OAMLLEY MDAdmitter: ROME HERNANDEZ MDReferrer: ROME HERNANDEZ MD [id number] 07/14/2020 12:00:00 AM EDT - 07/16/2020 03:36:00 PM EDT [facility] Other ascites Patient discharged. Outpatient 07/13/2020 09:33:06 AM EDT hosp D/[facility] hosp D/C Admission cancelled. Disregard status an d admitted date. Outpatient 07/13/2020 12:00:00 AM EDT hosp D/[facility] hosp D/C Outpatient Referrer: CAROLA KIRAN 07/13/2020 12:00: 00 AM EDT Unspecified fracture of unspecified thoracic vertebra, [facility] Unspecified fracture of unspecified thor acic vertebra, sequela Outpatient Attender: Smith Sosa MD [id number] 07/13/2020 12:00:00 AM EDT - 07/13/2020 01:28:21 PM EDT [facility] spital Unlisted evaluation and management service 07/04/2020 12:32:00 PM EDT - 08/31/2020 02:21:00 PM EDT [place] [facility]) Outpatient Attender: JOANIE Paiz er: JOANIE FRANCOReferrer: Balbina Bartlett [employer] OFFICER 07/04/2020 12:00:00 AM EDT - 07/04/2020 03:45:00 PM EDT [facility] Other ascites Patient discharged. Inpatient Attender: JOVANA Lawler nder: FATMATA SIMONS MDAttender: TIMUR MAGUIRE .Admitter: FATMATA SIMONS MDReferrer: LEON FAROOQ PAConsultant: JOVANA Castillo MD [id number] 06/12/2020 12:00:00 AM EDT - 06/19/2020 05:16:00 PM EDT Stable burst fracture of unspecified thoracic vertebra, initial encounter for closed fracture [facility] Stable burst fracture of unspecified tho racic vertebra, initial encounter for closed fracture Patient discharged. Emergency Attender: KARLA VIVEROS PAReferrer: Alphonso Ramos [facility] EM[facility]ENC[facility]-ER 06/11/2020 05:37:00 PM EDT - 06/11/2020 11:50:00 PM EDT [facility] Patient discharged. [place] [address] [facility] [address] 05/16/2020 12:00:00 AM EDT eCW1 ([facility]) Outpatient Attender: Axel MATHEWDILLON 03/26 12:00:00 AM EST - 04/04/2020 11:39:12 AM EST [facility] Outpatient Attender: Axel Zepeda MDReferrer: NELLI LEMUS 03/15/2020 12:00:00 AM EST - 03/15/2020 02:58:10 PM EST [facility] Outpatient [address] [facility] [address] 03/02/2020 12:00:00 AM EST eCW1 ([facility]) Unknown [address] [facility] [address] 02/09/2020 12:00:00 AM EST eCW1 ([facility]) Outpatient Attender: Nelli Ramos FNPReferrer: Nelli SZYMANSKI 02/08/2020 08:00:00 AM [facility] Unknown [address] [facility] [address] 02/06/2020 12:00:00 AM EST eCW1 ([facility]) Outpatient [address] [facility] [address] 01/24/2020 12:00:00 AM EST eCW1 ([facility]) Unknown [address] [facility] [place] [address] 01/15/2020 12:00:00 AM EST eCW1 ([facility]) Outpatient [address] [facility] [place] [address] 01/13/2020 12:00:00 AM EST eCW1 ([facility]) Unknown [address] [facility] [place] [address] 12/11/2019 12:00:00 AM EDT eCW1 ([facility]) Unknown [address] [facility] [place] [address] 11/29/2019 12:00:00 AM EDT eCW1 ([facility]) Immunizations Vaccine Date Status Description Data Source(s) influenza, recombinant, quadrIvalent,injectable, prese rvative free 12/06/2020 03:37:00 PM EDT completed eCW1 ([facility]) influenza, recombinant, quadrIvalent,injectable, prese rvative free 12/06/2020 03:37:00 PM EDT completed eCW1 ([facility]) Zoster 50mcg/0.5mL Shingrix 12/06/2020 03:36:00 PM EDT completed eCW1 ([facility]) Zoster 50mcg/0.5mL Shingrix 12/06/2020 03:36:00 PM EDT completed eCW1 ([facility]) Zoster 50mcg/0.5mL Shingrix 08/14/2020 11:42:00 AM EDT completed eCW1 ([facility]) Zoster 50mcg/0.5mL Shingrix 08/14/2020 11:42:00 AM EDT completed eCW1 ([facility]) Zoster 50mcg/0.5mL Shingrix 08/14/2020 11:42:00 AM EDT completed eCW1 ([facility]) Zoster 50mcg/0.5mL Shingrix 08/14/2020 11:42:00 AM EDT completed eCW1 ([facility]) Zoster 50mcg/0.5mL Shingrix 08/14/2020 11:42:00 AM EDT completed eCW1 ([facility]) Zoster 50mcg/0.5mL Shingrix 08/14/2020 11:42:00 AM EDT completed eCW1 ([facility]) Zoster 50mcg/0.5mL Shingrix 08/14/2020 11:42:00 AM EDT completed eCW1 ([facility]) Zoster 50mcg/0.5mL Shingrix 08/14/2020 11:42:00 AM EDT completed eCW1 ([facility]) Zoster 50mcg/0.5mL Shingrix 08/14/2020 11:42:00 AM EDT completed eCW1 ([facility]) Zoster 50mcg/0.5mL Shingrix 08/14/2020 11:42:00 AM EDT completed eCW1 ([facility]) Zoster 50mcg/0.5mL Shingrix 08/14/2020 11:42:00 AM EDT completed eCW1 ([facility]) Zoster 50mcg/0.5mL Shingrix 08/14/2020 11:42:00 AM EDT completed eCW1 ([facility]) Zoster 50mcg/0.5mL Shingrix 08/14/2020 11:42:00 AM EDT completed eCW1 ([facility]) Zoster 50mcg/0.5mL Shingrix 08/14/2020 11:42:00 AM EDT completed eCW1 ([facility]) Zoster 50mcg/0.5mL Shingrix 08/14/2020 11:42:00 AM EDT completed eCW1 ([facility]) Zoster 50mcg/0.5mL Shingrix 08/14/2020 11:42:00 AM EDT completed eCW1 ([facility]) Zoster 50mcg/0.5mL Shingrix 08/14/2020 11:42:00 AM EDT completed eCW1 ([facility]) Zoster 50mcg/0.5mL Shingrix 08/14/2020 11:42:00 AM EDT completed eCW1 ([facility]) Zoster 50mcg/0.5mL Shingrix 08/14/2020 11:42:00 AM EDT completed eCW1 ([facility]) Zoster 50mcg/0.5mL Shingrix 08/14/2020 11:42:00 AM EDT completed eCW1 ([facility]) Zoster 50mcg/0.5mL Shingrix 08/14/2020 11:42:00 AM EDT completed eCW1 ([facility]) pneumococcal polysaccharide PPV23 08/14/2020 11:41:00 AM EDT comple jaden eCW1 ([facility]) pneumococcal polysaccharide PPV23 08/14/2020 11:41:00 AM EDT comple jaden eCW1 ([facility]) pneumococcal polysaccharide PPV23 08/14/2020 11:41:00 AM EDT comple jaden eCW1 ([facility]) pneumococcal polysaccharide PPV23 08/14/2020 11:41:00 AM EDT comple jaden eCW1 ([facility]) pneumococcal polysaccharide PPV23 08/14/2020 11:41:00 AM EDT comple jaden eCW1 ([facility]) pneumococcal polysaccharide PPV23 08/14/2020 11:41:00 AM EDT comple jaden eCW1 ([facility]) pneumococcal polysaccharide PPV23 08/14/2020 11:41:00 AM EDT comple jaden eCW1 ([facility]) pneumococcal polysaccharide PPV23 08/14/2020 11:41:00 AM EDT comple jaden eCW1 ([facility]) pneumococcal polysaccharide PPV23 08/14/2020 11:41:00 AM EDT comple jaden eCW1 ([facility]) pneumococcal polysaccharide PPV23 08/14/2020 11:41:00 AM EDT comple jaden eCW1 ([facility]) pneumococcal polysaccharide PPV23 08/14/2020 11:41:00 AM EDT comple jaden eCW1 ([facility]) pneumococcal polysaccharide PPV23 08/14/2020 11:41:00 AM EDT comple jaden eCW1 ([facility]) pneumococcal polysaccharide PPV23 08/14/2020 11:41:00 AM EDT comple jaden eCW1 ([facility]) pneumococcal polysaccharide PPV23 08/14/2020 11:41:00 AM EDT comple jaden eCW1 ([facility]) pneumococcal polysaccharide PPV23 08/14/2020 11:41:00 AM EDT comple jaden eCW1 ([facility]) pneumococcal polysaccharide PPV23 08/14/2020 11:41:00 AM EDT comple jaden eCW1 ([facility]) pneumococcal polysaccharide PPV23 08/14/2020 11:41:00 AM EDT comple jaden eCW1 ([facility]) pneumococcal polysaccharide PPV23 08/14/2020 11:41:00 AM EDT comple jaden eCW1 ([facility]) pneumococcal polysaccharide PPV23 08/14/2020 11:41:00 AM EDT comple jaden eCW1 ([facility]) pneumococcal polysaccharide PPV23 08/14/2020 11:41:00 AM EDT comple jaden eCW1 ([facility]) pneumococcal polysaccharide PPV23 08/14/2020 11:41:00 AM EDT comple jaden eCW1 ([facility]) COVID-19 VACCINE Moderna 07/09/2020 12:00:00 AM EDT completed [facility] Vaccine Series Complete: YESThis Data wa s Submitted to [facility] Via [employer]. COVID-19 dose #2 given elsewhere Unspecified 07/06/2020 10:5 2:00 AM EDT completed eCW1 ([facility]) COVID-19 dose #2 given elsewhere Unspecified 07/06/2020 10:5 2:00 AM EDT completed eCW1 ([facility]) COVID-19 dose #2 given elsewhere Unspecified 07/06/2020 10:5 2:00 AM EDT completed eCW1 ([facility]) COVID-19 dose #2 given elsewhere Unspecified 07/06/2020 10:5 2:00 AM EDT completed eCW1 ([facility]) COVID-19 dose #2 given elsewhere Unspecified 07/06/2020 10:5 2:00 AM EDT completed eCW1 ([facility]) COVID-19 dose #2 given elsewhere Unspecified 07/06/2020 10:5 2:00 AM EDT completed eCW1 ([facility]) COVID-19 dose #2 given elsewhere Unspecified 07/06/2020 10:5 2:00 AM EDT completed eCW1 ([facility]) COVID-19 dose #2 given elsewhere Unspecified 07/06/2020 10:5 2:00 AM EDT completed eCW1 ([facility]) COVID-19 dose #2 given elsewhere Unspecified 07/06/2020 10:5 2:00 AM EDT completed eCW1 ([facility]) COVID-19 dose #2 given elsewhere Unspecified 07/06/2020 10:5 2:00 AM EDT completed eCW1 ([facility]) COVID-19 dose #2 given elsewhere Unspecified 07/06/2020 10:5 2:00 AM EDT completed eCW1 ([facility]) COVID-19 dose #2 given elsewhere Unspecified 07/06/2020 10:5 2:00 AM EDT completed eCW1 ([facility]) COVID-19 dose #2 given elsewhere Unspecified 07/06/2020 10:5 2:00 AM EDT completed eCW1 ([facility]) COVID-19 dose #2 given elsewhere Unspecified 07/06/2020 10:5 2:00 AM EDT completed eCW1 ([facility]) COVID-19 dose #2 given elsewhere Unspecified 07/06/2020 10:5 2:00 AM EDT completed eCW1 ([facility]) COVID-19 dose #2 given elsewhere Unspecified 07/06/2020 10:5 2:00 AM EDT completed eCW1 ([facility]) COVID-19 dose #2 given elsewhere Unspecified 07/06/2020 10:5 2:00 AM EDT completed eCW1 ([facility]) COVID-19 dose #2 given elsewhere Unspecified 07/06/2020 10:5 2:00 AM EDT completed eCW1 ([facility]) COVID-19 dose #2 given elsewhere Unspecified 07/06/2020 10:5 2:00 AM EDT completed eCW1 ([facility]) COVID-19 dose #2 given elsewhere Unspecified 07/06/2020 10:5 2:00 AM EDT completed eCW1 ([facility]) COVID-19 dose #2 given elsewhere Unspecified 07/06/2020 10:5 2:00 AM EDT completed eCW1 ([facility]) COVID-19 dose #1 given elsewhere Unspecified 05/17/2020 10:5 2:00 AM EDT completed eCW1 ([facility]) COVID-19 dose #1 given elsewhere Unspecified 05/17/2020 10:5 2:00 AM EDT completed eCW1 ([facility]) COVID-19 dose #1 given elsewhere Unspecified 05/17/2020 10:5 2:00 AM EDT completed eCW1 ([facility]) COVID-19 dose #1 given elsewhere Unspecified 05/17/2020 10:5 2:00 AM EDT completed eCW1 ([facility]) COVID-19 dose #1 given elsewhere Unspecified 05/17/2020 10:5 2:00 AM EDT completed eCW1 ([facility]) COVID-19 dose #1 given elsewhere Unspecified 05/17/2020 10:5 2:00 AM EDT completed eCW1 ([facility]) COVID-19 dose #1 given elsewhere Unspecified 05/17/2020 10:5 2:00 AM EDT completed eCW1 ([facility]) COVID-19 dose #1 given elsewhere Unspecified 05/17/2020 10:5 2:00 AM EDT completed eCW1 ([facility]) COVID-19 dose #1 given elsewhere Unspecified 05/17/2020 10:5 2:00 AM EDT completed eCW1 ([facility]) COVID-19 dose #1 given elsewhere Unspecified 05/17/2020 10:5 2:00 AM EDT completed eCW1 ([facility]) COVID-19 dose #1 given elsewhere Unspecified 05/17/2020 10:5 2:00 AM EDT completed eCW1 ([facility]) COVID-19 dose #1 given elsewhere Unspecified 05/17/2020 10:5 2:00 AM EDT completed eCW1 ([facility]) COVID-19 dose #1 given elsewhere Unspecified 05/17/2020 10:5 2:00 AM EDT completed eCW1 ([facility]) COVID-19 dose #1 given elsewhere Unspecified 05/17/2020 10:5 2:00 AM EDT completed eCW1 ([facility]) COVID-19 dose #1 given elsewhere Unspecified 05/17/2020 10:5 2:00 AM EDT completed eCW1 ([facility]) COVID-19 dose #1 given elsewhere Unspecified 05/17/2020 10:5 2:00 AM EDT completed eCW1 ([facility]) COVID-19 dose #1 given elsewhere Unspecified 05/17/2020 10:5 2:00 AM EDT completed eCW1 ([facility]) COVID-19 dose #1 given elsewhere Unspecified 05/17/2020 10:5 2:00 AM EDT completed eCW1 ([facility]) COVID-19 dose #1 given elsewhere Unspecified 05/17/2020 10:5 2:00 AM EDT completed eCW1 ([facility]) COVID-19 dose #1 given elsewhere Unspecified 05/17/2020 10:5 2:00 AM EDT completed eCW1 ([facility]) COVID-19 dose #1 given elsewhere Unspecified 05/17/2020 10:5 2:00 AM EDT completed eCW1 ([facility]) COVID-19 VACCINE Moderna 05/17/2020 12:00:00 AM EDT completed [employer] Vaccine Series Complete: NOThis Data was Submitted to [facility] Via [employer]. COVID-19 VACCINE, MRNA-1273, LNP-S (MODERNA)/PF 05/17/2020 1 2:00:00 AM EDT completed [facility] influenza, recombinant, quadrIvalent,injectable, prese rvative free 01/13/2020 04:37:00 PM EST completed eCW1 ([facility]) influenza, recombinant, quadrIvalent,injectable, prese rvative free 01/13/2020 04:37:00 PM EST completed eCW1 ([facility]) influenza, recombinant, quadrIvalent,injectable, prese rvative free 01/13/2020 04:37:00 PM EST completed eCW1 ([facility]) influenza, recombinant, quadrIvalent,injectable, prese rvative free 01/13/2020 04:37:00 PM EST completed eCW1 ([facility]) influenza, recombinant, quadrIvalent,injectable, prese rvative free 01/13/2020 04:37:00 PM EST completed eCW1 ([facility]) influenza, recombinant, quadrIvalent,injectable, prese rvative free 01/13/2020 04:37:00 PM EST completed eCW1 ([facility]) influenza, recombinant, quadrIvalent,injectable, prese rvative free 01/13/2020 04:37:00 PM EST completed eCW1 ([facility]) influenza, recombinant, quadrIvalent,injectable, prese rvative free 01/13/2020 04:37:00 PM EST completed eCW1 ([facility]) influenza, recombinant, quadrIvalent,injectable, prese rvative free 01/13/2020 04:37:00 PM EST completed eCW1 ([facility]) influenza, recombinant, quadrIvalent,injectable, prese rvative free 01/13/2020 04:37:00 PM EST completed eCW1 ([facility]) influenza, recombinant, quadrIvalent,injectable, prese rvative free 01/13/2020 04:37:00 PM EST completed eCW1 ([facility]) influenza, recombinant, quadrIvalent,injectable, prese rvative free 01/13/2020 04:37:00 PM EST completed eCW1 ([facility]) influenza, recombinant, quadrIvalent,injectable, prese rvative free 01/13/2020 04:37:00 PM EST completed eCW1 ([facility]) influenza, recombinant, quadrIvalent,injectable, prese rvative free 01/13/2020 04:37:00 PM EST completed eCW1 ([facility]) influenza, recombinant, quadrIvalent,injectable, prese rvative free 01/13/2020 04:37:00 PM EST completed eCW1 ([facility]) influenza, recombinant, quadrIvalent,injectable, prese rvative free 01/13/2020 04:37:00 PM EST completed eCW1 ([facility]) influenza, recombinant, quadrIvalent,injectable, prese rvative free 01/13/2020 04:37:00 PM EST completed eCW1 ([facility]) influenza, recombinant, quadrIvalent,injectable, prese rvative free 01/13/2020 04:37:00 PM EST completed eCW1 ([facility]) influenza, recombinant, quadrIvalent,injectable, prese rvative free 01/13/2020 04:37:00 PM EST completed eCW1 ([facility]) influenza, recombinant, quadrIvalent,injectable, prese rvative free 01/13/2020 04:37:00 PM EST completed eCW1 ([facility]) influenza, recombinant, quadrIvalent,injectable, prese rvative free 01/13/2020 04:37:00 PM EST completed eCW1 ([facility]) influenza, recombinant, quadrIvalent,injectable, prese rvative free 01/13/2020 04:37:00 PM EST completed eCW1 ([facility]) influenza, recombinant, quadrIvalent,injectable, prese rvative free 01/13/2020 04:37:00 PM EST completed eCW1 ([facility]) influenza, recombinant, quadrIvalent,injectable, prese rvative free 01/13/2020 04:37:00 PM EST completed eCW1 ([facility]) influenza, recombinant, quadrIvalent,injectable, prese rvative free 01/13/2020 04:37:00 PM EST completed eCW1 ([facility]) influenza, recombinant, quadrIvalent,injectable, prese rvative free 01/13/2020 04:37:00 PM EST completed eCW1 ([facility]) influenza, recombinant, quadrIvalent,injectable, prese rvative free 01/13/2020 04:37:00 PM EST completed eCW1 ([facility]) influenza, recombinant, quadrIvalent,injectable, prese rvative free 01/13/2020 04:37:00 PM EST completed eCW1 ([facility]) influenza, recombinant, quadrIvalent,injectable, prese rvative free 01/13/2020 04:37:00 PM EST completed eCW1 ([facility]) influenza, recombinant, quadrIvalent,injectable, prese rvative free 01/13/2020 04:37:00 PM EST completed eCW1 ([facility]) influenza, recombinant, quadrIvalent,injectable, prese rvative free 01/13/2020 04:37:00 PM EST completed eCW1 ([facility]) influenza, recombinant, quadrIvalent,injectable, prese rvative free 01/13/2020 04:37:00 PM EST completed eCW1 ([facility]) influenza, recombinant, quadrIvalent,injectable, prese rvative free 01/13/2020 04:37:00 PM EST completed eCW1 ([facility]) influenza, recombinant, quadrIvalent,injectable, prese rvative free 01/13/2020 04:37:00 PM EST completed eCW1 ([facility]) Medications Medication Brand Name Start Date Product Form Dose Route Admi nistrative Instructions Pharmacy Instructions Status Indications Reaction Description Data Source(s) POLYETHYLENE GLYCOL 3350 142 MG/ML Oral Solution [Miralax] M iralax 12/12/2020 12:00:00 AM EDT active M EDENT ([facility], ) 17 gram/dose 12/12/2020 12:00:00 AM EDT powder [address] MCMILLAN COLON PREPARATIN INSTRUCTIONS USE DIRECTED SEE DR HIPOLITO PEREZ PREPARATIN INSTRUCTIONS SOLD: 12/15/2020 [facility] No Active Medications 12/12/2020 12:00:00 AM EDT completed MEDENT ([facility], ) Potassium Chloride 10 MEQ Extended Release Oral Tablet POTAS SIUM CHLORIDE 12/10/2020 12:00:00 AM EDT tablet extended release 60 TAKE ONE TABLET BY MOUTH TWICE A DAY WITH FOOD TAKE ONE TABLET BY MOUTH TWICE A DAY WITH FOOD SOLD: 12/10/2020 [facility] Potassium Chloride 10 MEQ Extended Relea se Oral Tablet Potassium Chloride ER 10 MEQ Potassium Chloride ER 10 MEQ 12/09/2020 12:00:00 AM EDT 1.0 {tablet_with_food} active Potassium Chl oride ER 10 MEQ eCW1 ([facility]) Potassium Chloride 10 MEQ Extended Relea se Oral Tablet Potassium Chloride ER 10 MEQ Potassium Chloride ER 10 MEQ 12/09/2020 12:00:00 AM EDT 1.0 {tablet_with_food} active Potassium Chl oride ER 10 MEQ eCW1 ([facility]) 25 mg 11/22/2020 12:00:00 AM EDT tablet 60 TAKE ONE TABLET BY MOUTH TWICE A DAY TAKE ONE TABLET BY MOUTH TWICE A DAY SOLD: 12/23/2020 [facility] 25 mg 11/22/2020 12:00:00 AM EDT tablet 60 TAKE ONE TABLET BY MOUTH TWICE A DAY TAKE ONE TABLET BY MOUTH TWICE A DAY SOLD: 11/24/2020 [facility] Hydroxyzine Hydrochloride 25 MG Oral Tablet hydrOXYzin e (ATARAX) 25 MG tablet hydrOXYzine (ATARAX) 25 MG tablet 2020 12:00:00 AM EDT active TAKE ONE TABLET BY MOUTH EVERY 8 HOURS NEEDED FOR I TCHING [facility] 25 mg 2020 12:00:00 AM EDT tablet 90 TAKE ONE TABLET BY MOUTH EVERY 8 HOURS NEEDED FOR ITCHING TAKE ONE TABLET BY MOUTH EVERY 8 HOURS A S NEEDED FOR ITCHING SOLD: 2020 [facility] Hydroxyzine Hydrochloride 25 MG Oral Tablet hydrOXYzin e HCl 25 MG hydrOXYzine HCl 25 MG 2020 12:00:00 AM EDT 1.0 {tablet_as_needed} active hydrOXYzine HCl 25 MG eCW1 ([facility]) Hydroxyzine Hydrochloride 25 MG Oral Tablet hydrOXYzin e HCl 25 MG hydrOXYzine HCl 25 MG 2020 12:00:00 AM EDT 1.0 {tablet_as_needed} active hydrOXYzine HCl 25 MG eCW1 ([facility]) Hydroxyzine Hydrochloride 25 MG Oral Tablet hydrOXYzin e HCl 25 MG hydrOXYzine HCl 25 MG 2020 12:00:00 AM EDT 1.0 {tablet_as_needed} active hydrOXYzine HCl 25 MG eCW1 ([facility]) Hydroxyzine Hydrochloride 25 MG Oral Tablet hydrOXYzin e HCl 25 MG hydrOXYzine HCl 25 MG 2020 12:00:00 AM EDT 1.0 {tablet_as_needed} active hydrOXYzine HCl 25 MG eCW1 ([facility]) Hydroxyzine Hydrochloride 25 MG Oral Tablet hydrOXYzin e HCl 25 MG hydrOXYzine HCl 25 MG 2020 12:00:00 AM EDT 1.0 {tablet_as_needed} active hydrOXYzine HCl 25 MG eCW1 ([facility]) Hydroxyzine Hydrochloride 25 MG Oral Tablet hydrOXYzin e HCl 25 MG hydrOXYzine HCl 25 MG 2020 12:00:00 AM EDT 1.0 {tablet_as_needed} active hydrOXYzine HCl 25 MG eCW1 ([facility]) Hydroxyzine Hydrochloride 25 MG Oral Tablet hydrOXYzin e HCl 25 MG hydrOXYzine HCl 25 MG 2020 12:00:00 AM EDT 1.0 {tablet_as_needed} active hydrOXYzine HCl 25 MG eCW1 ([facility]) Hydroxyzine Hydrochloride 25 MG Oral Tablet hydrOXYzin e HCl 25 MG hydrOXYzine HCl 25 MG 2020 12:00:00 AM EDT 1.0 {tablet_as_needed} active hydrOXYzine HCl 25 MG eCW1 ([facility]) 10 gram/15 mL 10/31/2020 12:00:00 AM EDT solution 2365 TAKE 30ML BY MOUTH THREE TIMES A DAY TAKE 30ML BY MOUTH THREE TIMES A DAY SOLD: 2020 [facility] 10 gram/15 mL 10/31/2020 12:00:00 AM EDT solution 2365 TAKE 30ML BY MOUTH THREE TIMES A DAY TAKE 30ML BY MOUTH THREE TIMES A DAY SOLD: 12/06/2020 [facility] torsemide 20 MG Oral Tablet torsemide (DEMADEX) 20 MG tablet torsemide (DEMADEX) 20 MG tablet 10/02/2020 12:00:00 AM EDT 20 mg Oral acti ve Take 1 tablet (20 mg total) by mouth daily [facility] 20 mg 10/02/2020 12:00:00 AM EDT tablet 30 TAKE ONE TABLET BY MOUTH EVERY DAY TAKE ONE TABLET BY MOUTH EVERY DAY SOLD: 12/15/2020 [facility] 20 mg 10/02/2020 12:00:00 AM EDT tablet 30 TAKE ONE TABLET BY MOUTH EVERY DAY TAKE ONE TABLET BY MOUTH EVERY DAY SOLD: 11/15/2020 [facility] 20 mg 10/02/2020 12:00:00 AM EDT tablet 30 TAKE ONE TABLET BY MOUTH EVERY DAY TAKE ONE TABLET BY MOUTH EVERY DAY SOLD: 10/08/2020 [facility] 20 mg 09/03/2020 12:00:00 AM EDT tablet 30 TAKE 5 TABLETS (100MG) BY MOUTH UNTIL YOUR PARACENTESIS (TAKE UNTIL THURSDAY) THEN RESUME 1 TABLET DAILY TAKE 5 TABLETS (100MG) BY MOUTH UNTIL YOUR PARACENTESIS (TAKE UNTIL THURSDAY) THEN RESUME 1 TABLET DAILY SOLD: 09/03/2020 [facility] torsemide 20 MG Oral Tablet torsemide (DEMADEX) 20 MG tablet torsemide (DEMADEX) 20 MG tablet 09/03/2020 12:00:00 AM EDT 20 mg Oral acti ve Take 1 tablet (20 mg total) by mouth See Admin Instructions Take five 20mg tabs (100mg total) until your paracentesis (take until Thursday) Then resume at 1 tab (20mg total) daily [facility] torsemide 20 MG Oral Tablet Torsemide 20 MG Oral Table t (DEMADEX) Torsemide 20 MG Oral Tablet (DEMADEX) 09/03/2020 12:00:00 AM EDT 20 mg Oral active Take 20 mg by mouth [facility] 20 mg 08/17/2020 12:00:00 AM EDT tablet 30 TAKE ONE TABLET BY MOUTH EVERY DAY TAKE ONE TABLET BY MOUTH EVERY DAY SOLD: 08/19/2020 [facility] Furosemide 20 MG Oral Tablet furosemide (LASIX) 20 MG tablet furosemide (LASIX) 20 MG tablet 08/17/2020 12:00:00 AM EDT 20 mg Oral abort ed Take 20 mg by mouth daily [facility] 20 mg 08/17/2020 12:00:00 AM EDT tablet 30 TAKE ONE TABLET BY MOUTH EVERY DAY TAKE ONE TABLET BY MOUTH EVERY DAY SOLD: 09/29/2020 [facility] carvedilol 12.5 MG Oral Tablet CARVEDILOL 08/14/2020 12:00:00 AM EDT tablet 60 TAKE ONE TABLET BY MOUTH TWICE A DAY WITH FOOD TAKE ON E TABLET BY MOUTH TWICE A DAY WITH FOOD SOLD: 11/03/2020 [facility] carvedilol 12.5 MG Oral Tablet Carvedilol 12.5 MG Carvedilol 12.5 MG 08/14/2020 12:00:00 AM EDT 1.0 {tablet_with_food} active Carvedilol 12.5 MG eCW1 ([facility]) carvedilol 12.5 MG Oral Tablet Carvedilol 12.5 MG Carvedilol 12.5 MG 08/14/2020 12:00:00 AM EDT 1.0 {tablet_with_food} active Carvedilol 12.5 MG eCW1 ([facility]) carvedilol 12.5 MG Oral Tablet Carvedilol 12.5 MG Carvedilol 12.5 MG 08/14/2020 12:00:00 AM EDT 1.0 {tablet_with_food} active Carvedilol 12.5 MG eCW1 ([facility]) carvedilol 12.5 MG Oral Tablet Carvedilol 12.5 MG Carvedilol 12.5 MG 08/14/2020 12:00:00 AM EDT 1.0 {tablet_with_food} active Carvedilol 12.5 MG eCW1 ([facility]) carvedilol 12.5 MG Oral Tablet Carvedilol 12.5 MG Carvedilol 12.5 MG 08/14/2020 12:00:00 AM EDT 1.0 {tablet_with_food} active Carvedilol 12.5 MG eCW1 ([facility]) carvedilol 12.5 MG Oral Tablet Carvedilol 12.5 MG Carvedilol 12.5 MG 08/14/2020 12:00:00 AM EDT 1.0 {tablet_with_food} active Carvedilol 12.5 MG eCW1 ([facility]) carvedilol 12.5 MG Oral Tablet carvedilol (COREG) 12.5 MG tablet carvedilol (COREG) 12.5 MG tablet 08/14/2020 12:00:00 AM EDT 12.5 mg Oral active Take 12.5 mg by mouth 2 (two) times a day [facility] carvedilol 12.5 MG Oral Tablet Carvedilol 12.5 MG Carvedilol 12.5 MG 08/14/2020 12:00:00 AM EDT 1.0 {tablet_with_food} active Carvedilol 12.5 MG eCW1 ([facility]) carvedilol 12.5 MG Oral Tablet Carvedilol 12.5 MG Carvedilol 12.5 MG 08/14/2020 12:00:00 AM EDT 1.0 {tablet_with_food} active Carvedilol 12.5 MG eCW1 ([facility]) carvedilol 12.5 MG Oral Tablet Carvedilol 12.5 MG Carvedilol 12.5 MG 08/14/2020 12:00:00 AM EDT 1.0 {tablet_with_food} active Carvedilol 12.5 MG eCW1 ([facility]) carvedilol 12.5 MG Oral Tablet Carvedilol 12.5 MG Carvedilol 12.5 MG 08/14/2020 12:00:00 AM EDT 1.0 {tablet_with_food} active Carvedilol 12.5 MG eCW1 ([facility]) carvedilol 12.5 MG Oral Tablet Carvedilol 12.5 MG Carvedilol 12.5 MG 08/14/2020 12:00:00 AM EDT 1.0 {tablet_with_food} active Carvedilol 12.5 MG eCW1 ([facility]) carvedilol 12.5 MG Oral Tablet Carvedilol 12.5 MG Carvedilol 12.5 MG 08/14/2020 12:00:00 AM EDT 1.0 {tablet_with_food} active Carvedilol 12.5 MG eCW1 ([facility]) carvedilol 12.5 MG Oral Tablet CARVEDILOL 08/14/2020 12:00:00 AM EDT tablet 60 TAKE ONE TABLET BY MOUTH TWICE A DAY WITH FOOD TAKE ON E TABLET BY MOUTH TWICE A DAY WITH FOOD SOLD: 08/16/2020 [facility] carvedilol 12.5 MG Oral Tablet Carvedilol 12.5 MG Carvedilol 12.5 MG 08/14/2020 12:00:00 AM EDT 1.0 {tablet_with_food} active Carvedilol 12.5 MG eCW1 ([facility]) carvedilol 12.5 MG Oral Tablet CARVEDILOL 08/14/2020 12:00:00 AM EDT tablet 60 TAKE ONE TABLET BY MOUTH TWICE A DAY WITH FOOD TAKE ON E TABLET BY MOUTH TWICE A DAY WITH FOOD SOLD: 12/19/2020 [facility] carvedilol 12.5 MG Oral Tablet Carvedilol 12.5 MG Carvedilol 12.5 MG 08/14/2020 12:00:00 AM EDT 1.0 {tablet_with_food} active Carvedilol 12.5 MG eCW1 ([facility]) carvedilol 12.5 MG Oral Tablet Carvedilol 12.5 MG Carvedilol 12.5 MG 08/14/2020 12:00:00 AM EDT 1.0 {tablet_with_food} active Carvedilol 12.5 MG eCW1 ([facility]) carvedilol 12.5 MG Oral Tablet Carvedilol 12.5 MG Carvedilol 12.5 MG 08/14/2020 12:00:00 AM EDT 1.0 {tablet_with_food} active Carvedilol 12.5 MG eCW1 ([facility]) carvedilol 12.5 MG Oral Tablet Carvedilol 12.5 MG Carvedilol 12.5 MG 08/14/2020 12:00:00 AM EDT 1.0 {tablet_with_food} active Carvedilol 12.5 MG eCW1 ([facility]) carvedilol 12.5 MG Oral Tablet Carvedilol 12.5 MG Carvedilol 12.5 MG 08/14/2020 12:00:00 AM EDT 1.0 {tablet_with_food} active Carvedilol 12.5 MG eCW1 ([facility]) carvedilol 12.5 MG Oral Tablet Carvedilol 12.5 MG Carvedilol 12.5 MG 08/14/2020 12:00:00 AM EDT 1.0 {tablet_with_food} active Carvedilol 12.5 MG eCW1 ([facility]) carvedilol 12.5 MG Oral Tablet Carvedilol 12.5 MG Carvedilol 12.5 MG 08/14/2020 12:00:00 AM EDT 1.0 {tablet_with_food} active Carvedilol 12.5 MG eCW1 ([facility]) carvedilol 12.5 MG Oral Tablet Carvedilol 12.5 MG Carvedilol 12.5 MG 08/14/2020 12:00:00 AM EDT 1.0 {tablet_with_food} active Carvedilol 12.5 MG eCW1 ([facility]) 25 mg 08/01/2020 12:00:00 AM EDT tablet 60 TAKE TWO TABLETS BY MOUTH EVERY DAY TAKE TWO TABLETS BY MOUTH EVERY DAY SOLD: 10/21/2020 [facility] 25 mg 08/01/2020 12:00:00 AM EDT tablet 60 TAKE TWO TABLETS BY MOUTH EVERY DAY TAKE TWO TABLETS BY MOUTH EVERY DAY SOLD: 09/12/2020 [facility] 25 mg 08/01/2020 12:00:00 AM EDT tablet 60 TAKE TWO TABLETS BY MOUTH EVERY DAY TAKE TWO TABLETS BY MOUTH EVERY DAY SOLD: 08/08/2020 [facility] 24 HR Nicotine 0.875 MG/HR Transdermal P atch [Nicoderm C-Q] Nicoderm CQ 21 MG/24HR Nicoderm CQ 21 MG/24HR 07/25/2020 12:00:00 AM EDT 1.0 {patch_to_skin} suspended Nicoderm CQ 21 MG/24 HR eCW1 ([facility]) 24 HR Nicotine 0.875 MG/HR Transdermal P atch [Nicoderm C-Q] Nicoderm CQ 21 MG/24HR Nicoderm CQ 21 MG/24HR 07/25/2020 12:00:00 AM EDT 1.0 {patch_to_skin} active Nicoderm CQ 21 MG/24 HR eCW1 ([facility]) 24 HR Nicotine 0.875 MG/HR Transdermal P atch [Nicoderm C-Q] Nicoderm CQ 21 MG/24HR Nicoderm CQ 21 MG/24HR 07/25/2020 12:00:00 AM EDT 1.0 {patch_to_skin} active Nicoderm CQ 21 MG/24 HR eCW1 ([facility]) 24 HR Nicotine 0.875 MG/HR Transdermal P atch [Nicoderm C-Q] Nicoderm CQ 21 MG/24HR Nicoderm CQ 21 MG/24HR 07/25/2020 12:00:00 AM EDT 1.0 {patch_to_skin} active Nicoderm CQ 21 MG/24 HR eCW1 ([facility]) 24 HR Nicotine 0.875 MG/HR Transdermal P atch [Nicoderm C-Q] Nicoderm CQ 21 MG/24HR Nicoderm CQ 21 MG/24HR 07/25/2020 12:00:00 AM EDT 1.0 {patch_to_skin} active Nicoderm CQ 21 MG/24 HR eCW1 ([facility]) 24 HR Nicotine 0.875 MG/HR Transdermal P atch [Nicoderm C-Q] Nicoderm CQ 21 MG/24HR Nicoderm CQ 21 MG/24HR 07/25/2020 12:00:00 AM EDT 1.0 {patch_to_skin} suspended Nicoderm CQ 21 MG/24 HR eCW1 ([facility]) 24 HR Nicotine 0.875 MG/HR Transdermal P atch [Nicoderm C-Q] Nicoderm CQ 21 MG/24HR Nicoderm CQ 21 MG/24HR 07/25/2020 12:00:00 AM EDT 1.0 {patch_to_skin} active Nicoderm CQ 21 MG/24 HR eCW1 ([facility]) 24 HR Nicotine 0.875 MG/HR Transdermal P atch [Nicoderm C-Q] Nicoderm CQ 21 MG/24HR Nicoderm CQ 21 MG/24HR 07/25/2020 12:00:00 AM EDT 1.0 {patch_to_skin} active Nicoderm CQ 21 MG/24 HR eCW1 ([facility]) 24 HR Nicotine 0.875 MG/HR Transdermal P atch [Nicoderm C-Q] Nicoderm CQ 21 MG/24HR Nicoderm CQ 21 MG/24HR 07/25/2020 12:00:00 AM EDT 1.0 {patch_to_skin} active Nicoderm CQ 21 MG/24 HR eCW1 ([facility]) 24 HR Nicotine 0.875 MG/HR Transdermal P atch [Nicoderm C-Q] Nicoderm CQ 21 MG/24HR Nicoderm CQ 21 MG/24HR 07/25/2020 12:00:00 AM EDT 1.0 {patch_to_skin} active Nicoderm CQ 21 MG/24 HR eCW1 ([facility]) 24 HR Nicotine 0.875 MG/HR Transdermal P atch [Nicoderm C-Q] Nicoderm CQ 21 MG/24HR Nicoderm CQ 21 MG/24HR 07/25/2020 12:00:00 AM EDT 1.0 {patch_to_skin} active Nicoderm CQ 21 MG/24 HR eCW1 ([facility]) 24 HR Nicotine 0.875 MG/HR Transdermal P atch [Nicoderm C-Q] Nicoderm CQ 21 MG/24HR Nicoderm CQ 21 MG/24HR 07/25/2020 12:00:00 AM EDT 1.0 {patch_to_skin} active Nicoderm CQ 21 MG/24 HR eCW1 ([facility]) 24 HR Nicotine 0.875 MG/HR Transdermal P atch [Nicoderm C-Q] Nicoderm CQ 21 MG/24HR Nicoderm CQ 21 MG/24HR 07/25/2020 12:00:00 AM EDT 1.0 {patch_to_skin} active Nicoderm CQ 21 MG/24 HR eCW1 ([facility]) 21 mg/24 hr 07/25/2020 12:00:00 AM EDT patch 24 hour 28 APPLY ONE PATCH TOPICALLY TO SKIN DAILY APPLY ONE PATCH TOPICALLY TO SKIN DAILY SOLD: 07/27/19 21 [facility] 24 HR Nicotine 0.875 MG/HR Transdermal P atch [Nicoderm C-Q] Nicoderm CQ 21 MG/24HR Nicoderm CQ 21 MG/24HR 07/25/2020 12:00:00 AM EDT 1.0 {patch_to_skin} active Nicoderm CQ 21 MG/24 HR eCW1 ([facility]) 24 HR Nicotine 0.875 MG/HR Transdermal P atch [Nicoderm C-Q] Nicoderm CQ 21 MG/24HR Nicoderm CQ 21 MG/24HR 07/25/2020 12:00:00 AM EDT 1.0 {patch_to_skin} active Nicoderm CQ 21 MG/24 HR eCW1 ([facility]) 24 HR Nicotine 0.875 MG/HR Transdermal P atch [Nicoderm C-Q] Nicoderm CQ 21 MG/24HR Nicoderm CQ 21 MG/24HR 07/25/2020 12:00:00 AM EDT 1.0 {patch_to_skin} active Nicoderm CQ 21 MG/24 HR eCW1 ([facility]) 24 HR Nicotine 0.875 MG/HR Transdermal P atch [Nicoderm C-Q] Nicoderm CQ 21 MG/24HR Nicoderm CQ 21 MG/24HR 07/25/2020 12:00:00 AM EDT 1.0 {patch_to_skin} active Nicoderm CQ 21 MG/24 HR eCW1 ([facility]) 24 HR Nicotine 0.875 MG/HR Transdermal P atch [Nicoderm C-Q] Nicoderm CQ 21 MG/24HR Nicoderm CQ 21 MG/24HR 07/25/2020 12:00:00 AM EDT 1.0 {patch_to_skin} active Nicoderm CQ 21 MG/24 HR eCW1 ([facility]) 24 HR Nicotine 0.875 MG/HR Transdermal P atch [Nicoderm C-Q] Nicoderm CQ 21 MG/24HR Nicoderm CQ 21 MG/24HR 07/25/2020 12:00:00 AM EDT 1.0 {patch_to_skin} active Nicoderm CQ 21 MG/24 HR eCW1 ([facility]) 24 HR Nicotine 0.875 MG/HR Transdermal P atch [Nicoderm C-Q] Nicoderm CQ 21 MG/24HR Nicoderm CQ 21 MG/24HR 07/25/2020 12:00:00 AM EDT 1.0 {patch_to_skin} active Nicoderm CQ 21 MG/24 HR eCW1 ([facility]) 24 HR Nicotine 0.875 MG/HR Transdermal P atch [Nicoderm C-Q] Nicoderm CQ 21 MG/24HR Nicoderm CQ 21 MG/24HR 07/25/2020 12:00:00 AM EDT 1.0 {patch_to_skin} active Nicoderm CQ 21 MG/24 HR eCW1 ([facility]) 24 HR Nicotine 0.875 MG/HR Transdermal P atch [Nicoderm C-Q] Nicoderm CQ 21 MG/24HR Nicoderm CQ 21 MG/24HR 07/25/2020 12:00:00 AM EDT 1.0 {patch_to_skin} active Nicoderm CQ 21 MG/24 HR eCW1 ([facility]) 24 HR Nicotine 0.875 MG/HR Transdermal P atch [Nicoderm C-Q] Nicoderm CQ 21 MG/24HR Nicoderm CQ 21 MG/24HR 07/25/2020 12:00:00 AM EDT 1.0 {patch_to_skin} active Nicoderm CQ 21 MG/24 HR eCW1 ([facility]) 24 HR Nicotine 0.875 MG/HR Transdermal P atch [Nicoderm C-Q] Nicoderm CQ 21 MG/24HR Nicoderm CQ 21 MG/24HR 07/25/2020 12:00:00 AM EDT 1.0 {patch_to_skin} active Nicoderm CQ 21 MG/24 HR eCW1 ([facility]) 24 HR Nicotine 0.875 MG/HR Transdermal P atch [Nicoderm C-Q] Nicoderm CQ 21 MG/24HR Nicoderm CQ 21 MG/24HR 07/25/2020 12:00:00 AM EDT 1.0 {patch_to_skin} active Nicoderm CQ 21 MG/24 HR eCW1 ([facility]) 24 HR Nicotine 0.875 MG/HR Transdermal P atch [Nicoderm C-Q] Nicoderm CQ 21 MG/24HR Nicoderm CQ 21 MG/24HR 07/25/2020 12:00:00 AM EDT 1.0 {patch_to_skin} active Nicoderm CQ 21 MG/24 HR eCW1 ([facility]) pantoprazole 40 MG Delayed Release Oral Tablet PANTOPRAZOLE SODIUM 07/18/2020 12:00:00 AM EDT tablet,delayed release (DR/EC) 30 T [facility] ONE TABLET BY MOUTH EVERY DAY TAKE ONE TABLET BY MOUTH EVERY DAY SOLD: 07/19/2020 [employer] albumin human (ALBUMINAR) 25 % bottle 37.5 g 81994-997-36 07/16/2020 11:15:00 AM EDT 37.5 g Intravenous completed 37 .5 g, Intravenous, at 150 mL/hr, Once, On Thu07/16/20 at 1115, For 1 dose [facility] Medication administered onsite lidocaine (XYLOCAINE) 2 % injection 8728-2368-39 07/16/2020 10:16:18 AM EDT completed Code/Trauma Medicati on, Starting on Thu07/16/20 at 1016 [facility] Medication administered onsite Lidocaine 5 % External Patch (LIDODERM) [id number] 07/17/19 12:00:00 AM EDT 1 {patch} Transdermal active Place 1 pa tch onto the skin every 24 (twenty-four) hours 12 hours on 12 hours off for back pain [facility] sennosides, FPC 8.6 MG Oral Tablet senna tablet 2 tablet sen na tablet 2 tablet 07/15/2020 10:00:00 PM EDT 2 {tbl} Oral active 2 tablet, Oral, Nightly, First dose on 07/15/20 at 2200, For 30 days [facility] Medication administered onsite lidocaine (LIDODERM) 5 % patch 1 patch [id number] 05:00:00 PM EDT 1 {patch} Transdermal active 1 patch, T ransdermal, Every 24 hours, First dose on 07/15/20 at 1700, For 30 days
Apply to thoracic spine for pain every day 12 hours on - 12 hours off
Time to remove patch: 5:00 AM [facility] Medication administered onsite Acetaminophen 325 MG Oral Tablet acetaminophen (TYLENO L) tablet 650 mg acetaminophen (TYLENOL) tablet 650 mg 07/15/2020 04:32:04 PM EDT 65 0 mg Oral active 650 mg, Oral, E very 6 hours PRN, Mild Pain (Pain Scale Score 1- 3), Starting on 07/15/20 at 1632, For 30 days
Maximum daily dose of acetaminophen is 3,000 mg from all sources in 24 hours.
[facility] Medication administered onsite carvedilol 6.25 MG Oral Tablet carvedilol (COREG) tabl et 6.25 mg carvedilol (COREG) tablet 6.25 mg 07/15/2020 09:00:00 AM EDT 6.25 mg Oral active 6.25 mg, Oral, 2 Times Daily, First dose on 07/15/20 at 0900, For 30 days
Check vital signs before administering
[facility] Medication administered onsite Lactulose 667 MG/ML Oral Solution lactulose (CHRONULAC ) solution 30 mL lactulose (CHRONULAC) solution 30 mL 07/15/2020 09:00:00 AM EDT 30 mL Oral active 30 mL, Oral, Three Times Daily Standard , First dose on 07/15/20 at 0900, For 30 days [facility] Medication administered onsite pantoprazole 40 MG Delayed Release Oral Tablet pantoprazole (PROTONIX) EC tablet 40 mg pantoprazole (PROTONIX) EC tablet 40 mg 07/15/2020 09:00:00 AM E DT 40 mg Oral active 40 mg, Ora l, 2 Times Daily, First dose on 07/15/20 at 0900, For 30 days
Do not crush or chew
[facility] Medication administered onsite Folic Acid 1 MG Oral Tablet folic acid (FOLVITE) table t 1 mg folic acid (FOLVITE) tablet 1 mg 07/15/2020 09:00:00 AM EDT 1 mg Oral active 1 mg, Oral, Daily Standard, First dose on 07/15/20 at 0900, For 30 days [facility] Medication administered onsite Furosemide 20 MG Oral Tablet furosemide (LASIX) tablet 20 mg furosemide (LASIX) tablet 20 mg 07/15/2020 09:00:00 AM EDT 20 mg Oral activ e 20 mg, Oral, Daily Standard, First dose on 07/15/20 at 0900, For 30 days [facility] Medication administered onsite Thiamine 100 MG Oral Tablet thiamine (B-1) tablet 100 mg thiamine (B-1) tablet 100 mg 07/15/2020 09:00:00 AM EDT 100 mg Oral active 100 mg, Oral, Daily Standard, First dose on 07/15/20 at 0900, For 30 days [facility] Medication administered onsite Spironolactone 25 MG Oral Tablet spironolactone (ALDAC TONE) tablet 25 mg spironolactone (ALDACTONE) tablet 25 mg 07/15/2020 09:00:00 AM EDT 25 mg Oral active 25 mg, Oral, Da ashley Standard, First dose on 07/15/20 at 0900, For 30 days [facility] Medication administered onsite Acetaminophen 325 MG Oral Tablet acetaminophen (TYLENO L) tablet 650 mg acetaminophen (TYLENOL) tablet 650 mg 07/15/2020 06:30:00 AM EDT 65 0 mg Oral completed 650 mg, Oral, O nce, On 07/15/20 at 0630, For 1 dose
Maximum daily dose of acetaminophen is 3,000 mg from all sources in 24 hours.
[facility] Medication administered onsite Benzocaine 15 MG / Menthol 3.6 MG Oral L ozenge benzocaine-menthol (CEPACOL) 15- 3.6 MG per lozenge 1 lozenge benzocaine-menthol (CEPACOL) 15-3.6 MG p er lozenge 1 lozenge 07/15/2020 06:07:30 AM EDT 1 {lozenge} Mouth/Throat active 1 lozenge, Mouth/Throat, Every 2 hours PRN, Sore Throat, Starting on 07/15/20 at 0607, For 30 days [facility] Medication administered onsite 25 mg 07/15/2020 12:00:00 AM EDT tablet 30 TAKE ONE TABLET BY MOUTH EVERY DAY TAKE ONE TABLET BY MOUTH EVERY DAY SOLD: 07/17/2020 [facility] carvedilol 6.25 MG Oral Tablet CARVEDILOL 07/15/2020 12:00:00 AM EDT tablet 60 TAKE ONE TABLET BY MOUTH TWICE A DAY TAKE ONE TABLET BY MOUT H TWICE A DAY SOLD: 07/17/2020 [facility] 20 mg 07/15/2020 12:00:00 AM EDT tablet 30 TAKE ONE TABLET BY MOUTH EVERY DAY TAKE ONE TABLET BY MOUTH EVERY DAY SOLD: 07/17/2020 [facility] Lactulose 667 MG/ML Oral Solution lactulose (CHRONULAC ) 10 GM/15ML solution lactulose (CHRONULAC) 10 GM/15ML solution 07/13/2020 12:00:00 AM EDT active TAKE 30ML BY MOUTH THREE TIMES A DAY [facility] 10 gram/15 mL 07/13/2020 12:00:00 AM EDT solution 2700 TAKE 30ML BY MOUTH THREE TIMES A DAY TAKE 30ML BY MOUTH THREE TIMES A DAY SOLD: 07/17/2020 [facility] sodium chloride (preservative free) 0.9 % flush 3 mL 07/04/2020 05:00:00 PM EDT 3 mL Intravenous active [Ord er 1 Start] Name: Peripheral IV Signed Summary: Routine, CONTINUOUS, Starting on Thu07/04/20 at 1230, Until Liseth 07/05/20, For 1 day
Upon admission through end of procedure., Pre-op [Order 1 End] [Order 2 Start] Name: sodium chloride (preservative free) 0.9 % flush 3 mL Signed Summary: 3 mL, Intravenous, Every 8 hours Standard (3 times per day), First dose on Thu07/04/20 at 1700, For 30 days, Pre-op
Saline Lock. Flush Q8H and after each use to Saline Lock.
[Order 2 End] [Order 3 Start] Name: sodium chloride (preservative free) 0.9 % flush 3 mL Signed Summary: 3 mL, Intravenous, PRN, Line Care, Starting on Thu07/04/20 at 1229, For 30 days, Pre-op
Saline Lock. Flush Q8H and after each use to Saline Lock.
[Order 3 End] [Order 4 Start] Name: Saline Lock order Signed Summary: Routine, ONCE, On Thu07/04/20 at 1230, For 1 occurrence
Pre-op [Order 4 End] [facility] Medication administered onsite albumin human (ALBUMINAR) 25 % bottle 50 g [id number] 07/04/2020 02:00:00 PM EDT 50 g Intravenous completed 50 g, Intravenous, at 200 mL/hr, Once, On Thu07/04/20 at 1400, For 1 dose [facility] Medication administered onsite lidocaine (PF) (XYLOCAINE) 1 % injection [id number] 07/04/2020 12:58: 23 PM EDT completed Code/Trauma Medicati on, Starting on Thu07/04/20 at 1258 [facility] Medication administered onsite sodium chloride 0.9 % bag 3-20 mL [id number] 07/04/2020 12:29:48 PM EDT mL Intravenous active 3-20 mL, Intr avenous, at 1-999 mL/hr, PRN, For Medication Administration and Line Clearance, Starting on Thu07/04/20 at 1229, For 30 days, Pre-op
Flush line with sufficient amount of fluid needed based on machine stapler recommendation for specific line size. Rate should be run at the same rate as medication in the line being flushed.
[facility] Medication administered onsite Ibuprofen 600 MG Oral Tablet ibuprofen (ADVIL,MOTRIN) 600 MG tablet ibuprofen (ADVIL,MOTRIN) 600 MG tablet 06/20/2020 12:00:00 AM EDT aborted daily [facility] Furosemide 20 MG Oral Tablet Furosemide 20 MG Oral Tab let (LASIX) Furosemide 20 MG Oral Tablet (LASIX) 06/20/2020 12:00:00 AM EDT 20 mg Oral active Take 1 tablet by mouth daily [facility] Furosemide 20 MG Oral Tablet furosemide (LASIX) tablet 20 mg furosemide (LASIX) tablet 20 mg 06/19/2020 09:00:00 AM EDT 20 mg Oral activ e 20 mg, Oral, Daily Standard, First dose (after last modification) on Thu06/19/20 at 0900, For 26 doses [facility] Medication administered onsite Calcium Carbonate 500 MG Chewable Tablet calcium carbonate (TUMS) chewable tablet 500 mg calcium carbonate (TUMS) chewable tablet 500 mg 2020 04:15:00 AM EDT 500 mg Oral active 500 mg, Oral, Three Times Daily- PRN, Indigestion, Heartburn, Starting on Thu06/19/20 at 0415, For 72 hours [facility] Medication administered onsite Famotidine 20 MG Oral Tablet famotidine (PEPCID) table t 20 mg famotidine (PEPCID) tablet 20 mg 06/19/2020 04:07:06 AM EDT 20 mg Oral active 20 mg, Oral, Daily PRN, dyspepsia, GERD, Starting on Thu06/19/20 at 0407, For 30 days [facility] Medication administered onsite Lactulose 667 MG/ML Oral Solution Lactul ose 10 GM/15ML Oral Solution (CHRONULAC) Lactulose 10 GM/15ML Oral Solution (CHRONULAC) 06/19/2020 12:00: 00 AM EDT 30 mL Oral active Take 30 mLs by mouth Thr ee times daily [facility] sennosides, FPC 8.6 MG Oral Tablet Senna 8.6 MG Oral T ablet Senna 8.6 MG Oral Tablet 06/19/2020 12:00:00 AM EDT 2 {tbl} Oral active Take 2 tablets by mouth nightly [facility] Thiamine 100 MG Oral Tablet Thiamine HCl 100 MG Oral T ablet (B-1) Thiamine HCl 100 MG Oral Tablet (B-1) 06/19/2020 12:00:00 AM EDT 100 mg Oral active [facility]t Carvedilol 6.25 MG Oral Tablet (COREG) Carvedilol 6.25 MG Oral Tablet (COREG) 06/19/2020 12:00:00 AM EDT 6.25 mg Oral active Take 1 tablet by mouth Two Times Daily [facility] Docusate Sodium 100 MG Oral Capsule Docu sate Sodium 100 MG Oral Capsule (COLACE) Docusate Sodium 100 MG Oral Capsule (COLACE) 06/19/2020 12:00:00 AM EDT 100 mg Oral active Take 1 capsule by mouth Two Times Daily for 10 days [facility] Folic Acid 1 MG Oral Tablet Folic Acid 1 MG Oral Table t (FOLVITE) Folic Acid 1 MG Oral Tablet (FOLVITE) 06/19/2020 12:00:00 AM EDT 1 mg Oral active Take 1 tablet by mouth daily [facility] hypromellose 25 MG/ML Ophthalmic Solutio n Hypromellose 2.5 % Ophthalmic Solution (GONIOSOL) Hypromellose 2.5 % Ophthalmic Solution (GONIOSOL) 05/25 12:00:00 AM EDT 1 [drp] Both Eyes active Place 1 drop into both eyes Three times daily as needed [facility] albumin human (ALBUMINAR) 25 % bottle 25 g [id number] 06/18/2020 02:00:00 PM EDT 25 g Intravenous completed 25 g, Intravenous, at 100 mL/hr, Once, On Thu06/18/20 at 1400, For 1 dose [facility] Medication administered onsite Thiamine 100 MG Oral Tablet thiamine (B-1) tablet 100 mg thiamine (B-1) tablet 100 mg 06/16/2020 08:00:00 AM EDT 100 mg Oral active 100 mg, Oral, Three Times Daily, First dose on Thu06/16/20 at 0800, For 14 days [facility] Medication administered onsite Furosemide 20 MG Oral Tablet furosemide (LASIX) tablet 10 mg furosemide (LASIX) tablet 10 mg 06/15/2020 09:00:00 AM EDT 10 mg Oral abort ed 10 mg, Oral, Daily Standard, First dose on Thu06/15/20 at 0900, For 30 days [facility] Medication administered onsite sodium phosphate infusion 6 mmol/100 mL (premix) 06/15 08:00:00 AM EDT 6 mmol Intravenous completed 6 mmol, Intravenous, at 25 mL/hr, Once, On Thu06/15/20 at 0800, For 1 dose
Slower infusion rate (e.g. over 4 to 6 hours) are recommended in patients with renal impairment and/or less severe hypoph osphatemia.
[facility] Medication administered onsite carvedilol 6.25 MG Oral Tablet carvedilol (COREG) tabl et 6.25 mg carvedilol (COREG) tablet 6.25 mg 06/14/2020 09:00:00 PM EDT 6.25 mg Oral active 6.25 mg, Oral, 2 Times Daily, First dose (after last modification) on Thu06/14/20 at 2100, For 30 days
Check vital signs before administering
[facility] Medication administered onsite Spironolactone 25 MG Oral Tablet spironolactone (ALDAC TONE) tablet 25 mg spironolactone (ALDACTONE) tablet 25 mg 06/14/2020 04:00:00 PM EDT 25 mg Oral active 25 mg, Oral, Da ashley Standard, First dose on Thu06/14/20 at 1600, For 30 days [facility] Medication administered onsite magnesium sulfate in dextrose 5 % infusion (premix) 1 g [id number] 06/14/2020 11:00:00 AM EDT 1 g Intravenous completed 1 g, Intravenous, Administer over 60 Minutes, Once, On Thu06/14/20 at 1100, For 1 dose [facility] Medication administered onsite potassium chloride (K-DUR) dissolvable tablet 40 mEq 83634-7 99-01 06/14/2020 08:00:00 AM EDT 40 meq Oral completed 40 mEq, Oral, 2 Times Daily, First dose on Thu06/14/20 at 0800, For 1 day
May be dissolved in water for patients with a G-Tube or unable to swallow
[facility] Medication administered onsite albumin human (ALBUMINAR) 25 % bottle 25 g [id number] 06/13/2020 04:00:00 AM EDT 25 g Intravenous completed 25 g, Intravenous, at 50 mL/hr, Every 8 hours, First dose on Thu06/13/20 at 0400, For 3 doses [facility] Medication administered onsite sennosides, FPC 8.6 MG Oral Tablet senna tablet 2 tablet sen na tablet 2 tablet 06/12/2020 10:00:00 PM EDT 2 {tbl} Oral active 2 tablet, Oral, Nightly, First dose on Thu06/12/20 at 2200, For 30 days
Hold if > 1 bowel movement in 24 h
[facility] Medication administered onsite Docusate Sodium 100 MG Oral Capsule docusate sodium (C OLACE) capsule 100 mg docusate sodium (COLACE) capsule 100 mg 06/12/2020 09:00:00 PM EDT 100 mg Oral active 100 mg, Oral, 2 Times Daily, First dose on Thu06/12/20 at 2100, For 30 days
Hold if > 1 bowel movement in 24 h
[facility] Medication administered onsite Metoprolol Tartrate 50 MG Oral Tablet metoprolol (LOPR ESSOR) tablet 50 mg metoprolol (LOPRESSOR) tablet 50 mg 06/12/2020 09:00:00 PM EDT 50 mg Oral aborted 50 mg, Oral, 2 Times Daily, First dose on Thu06/12/20 at 2100, For 30 days
Check vital signs before administering
[facility] Medication administered onsite albumin human (ALBUMINAR) 25 % bottle 25 g [id number] 06/12/2020 08:00:00 PM EDT 25 g Intravenous completed 25 g, Intravenous, at 50 mL/hr, Once, On Thu06/12/20 at 2000, For 1 dose [facility] Medication administered onsite 50 ML Magnesium Sulfate 40 MG/ML Injecti on magnesium sulfate infusion 2 g/50 mL (premix) magnesium sulfate infusion 2 g/50 mL (premix) 06/13/19 06:00:00 PM EDT 2 g Intravenous completed 2 g, Intravenous, Administer over 60 Minutes, Every 1 hour, First dose (after last reorder) on Thu06/12/20 at 1800, For 2 doses [facility] Medication administered onsite Lactulose 667 MG/ML Oral Solution lactulose (CHRONULAC ) solution 30 mL lactulose (CHRONULAC) solution 30 mL 06/12/2020 05:00:00 PM EDT 30 mL Oral active 30 mL, Oral, Three Times Da ashley Standard, First dose on Thu06/12/20 at 1700, For 30 days
Titrate to 2-3 loose bowel movements daily
[facility] Medication administered onsite thiamine (B-1) 500 mg in sodium chloride 0.9 % 50 mL IVPB 06/12/2020 02:00:00 PM EDT 500 mg Intravenous completed 50 0 mg, Intravenous, Administer over 30 Minutes, Three Times Daily, First dose on Thu06/12/20 at 1400, For 3 days [facility] Medication administered onsite potassium chloride (K-DUR) dissolvable tablet 40 mEq 21147-6 99-01 06/12/2020 12:45:00 PM EDT 40 meq Oral completed 40 mEq, Oral, Every 4 hours, First dose on Thu06/12/20 at 1245, For 3 doses
May be dissolved in water for patients with a G-Tube or unable to swallow. If concern for clogging G-Tube, may contact Pharmacy to switch formulation to a powder packet.
[facility] Medication administered onsite albumin human (ALBUMINAR) 25 % bottle 50 g [id number] 06/12/2020 12:00:00 PM EDT 50 g Intravenous completed 50 g, Intravenous, at 100 mL/hr, Once, On Thu06/12/20 at 1200, For 1 dose [facility] Medication administered onsite Folic Acid 1 MG Oral Tablet folic acid (FOLVITE) table t 1 mg folic acid (FOLVITE) tablet 1 mg 06/12/2020 12:00:00 PM EDT 1 mg Oral active 1 mg, Oral, Daily Standard, First dose on Thu06/12/20 at 1200, For 30 days [facility] Medication administered onsite Ceftriaxone 1000 MG Injection cefTRIAXone (ROCEPHIN) i nfusion 1 g (premix) cefTRIAXone (ROCEPHIN) infusion 1 g (premix) 06/12/2020 11:45:00 AM EDT 1 g Intravenous completed 1 g, Intraven ous, at 100 mL/hr, Every 24 hours, First dose on Thu06/12/20 at 1145, For 1 day
Discouraged Uses: Empiric treatment of post-surgical meningitis (ceftazidime preferred)
[facility] Medication administered onsite hypromellose 25 MG/ML Ophthalmic Solutio n hydroxypropyl methylcellulose (GONIOSOL) 2.5 % ophthalmic solution 1 drop hydroxypropyl methylcellulose (GONIOSOL) 2.5 % ophthalmic solution 1 drop 06/12/2020 09:53:35 AM EDT 1 [drp] Both Eyes active 1 drop, Saw th Eyes, Three Times Daily-PRN, Dry Eyes, Starting on Thu06/12/20 at 0953, For 240 hours [facility] Medication administered onsite melatonin sublingual tablet 10 mg [id number] 06/12/2020 09:47:37 AM EDT 10 mg Oral active 10 mg, Ora l, Nightly PRN, Insomnia, Starting on Thu06/12/20 at 0947, For 30 days [facility] Medication administered onsite Calcium Carbonate 500 MG Chewable Tablet calcium carbonate (TUMS) chewable tablet 500 mg calcium carbonate (TUMS) chewable tablet 500 mg 2020 09:47:37 AM EDT 500 mg Oral aborted 500 mg, Oral, 2 Times Daily PRN, Indigestion, Heartburn, Starting on Thu06/12/20 at 0947, For 30 days [facility] Medication administered onsite Acetaminophen 325 MG Oral Tablet acetaminophen (TYLENO L) tablet 650 mg acetaminophen (TYLENOL) tablet 650 mg 06/12/2020 09:47:37 AM EDT 65 0 mg Oral active 650 mg, Oral, E very 6 hours PRN, Mild Pain (Pain Scale Score 1- 3), Starting on Thu06/12/20 at 0947, For 30 days
Maximum daily dose of acetaminophen is 3,000 mg from all sources in 24 hours.
[facility] Medication administered onsite sodium chloride 0.9 % bolus 500 mL [id number] 06/12/2020 07:30:00 AM EDT 500 mL Intravenous completed 500 mL, Intravenous, Once, On Thu06/12/20 at 0730, For 1 dose [facility] Medication administered onsite fentaNYL (SUBLIMAZE) (PF) injection 25 mcg [id number] 06/12/2020 07:30:00 AM EDT 25 ug Intravenous completed 25 mcg, Intravenous, Once, On Thu06/12/20 at 0730, For 1 dose [facility] Medication administered onsite Potassium Chloride 0.1 MEQ/ML Injectable Solution potassium chloride 10 mEq in 100 mL IVPB (premix) potassium chloride 10 mEq in 100 mL IVPB (premix) 06/12/2020 03:30:00 AM EDT 10 meq Intravenous completed 10 mEq, Intravenous, Once, On Thu06/12/20 at 0330, For 1 dose [facility] Medication administered onsite Spironolactone 25 MG Oral Tablet spironolactone (ALDAC TONE) 25 MG tablet spironolactone (ALDACTONE) 25 MG tablet 06/12/2020 12:00:00 AM EDT active TAKE ONE TABLET BY MOUTH EVERY D AY [facility] torsemide 20 MG Oral Tablet torsemide (DEMADEX) 20 MG tablet torsemide (DEMADEX) 20 MG tablet 06/12/2020 12:00:00 AM EDT abor jaden TAKE ONE TABLET BY MOUTH EVERY DAY [facility] 50 mg 05/03/2020 12:00:00 AM EST tablet extended release 24 hr 30 TAKE ONE TABLET BY MOUTH EVERY DAY TAKE ONE TABLET BY MOUTH EVERY DAY SOLD: 05/03/2020 [facility] pantoprazole 40 MG Delayed Release Oral Tablet PANTOPRAZOLE SODIUM 04/13/2020 12:00:00 AM EST tablet,delayed release (DR/EC) 60 T MORGAN ONE TABLET BY MOUTH TWICE A DAY WITH FOOD TAKE ONE TABLET BY MOUTH TWICE A DAY WITH FOOD SOLD: 12/19/2020 [facility] pantoprazole 40 MG Delayed Release Oral Tablet PANTOPRAZOLE SODIUM 04/13/2020 12:00:00 AM EST tablet,delayed release (DR/EC) 60 T MORGAN ONE TABLET BY MOUTH TWICE A DAY WITH FOOD TAKE ONE TABLET BY MOUTH TWICE A DAY WITH FOOD SOLD: 09/29/2020 [facility] pantoprazole 40 MG Delayed Release Oral Tablet PANTOPRAZOLE SODIUM 04/13/2020 12:00:00 AM EST tablet,delayed release (DR/EC) 60 T MORGAN ONE TABLET BY MOUTH TWICE A DAY WITH FOOD TAKE ONE TABLET BY MOUTH TWICE A DAY WITH FOOD SOLD: 11/09/2020 [facility] pantoprazole 40 MG Delayed Release Oral Tablet PANTOPRAZOLE SODIUM 04/13/2020 12:00:00 AM EST tablet,delayed release (DR/EC) 60 T MORGAN ONE TABLET BY MOUTH TWICE A DAY WITH FOOD TAKE ONE TABLET BY MOUTH TWICE A DAY WITH FOOD SOLD: 04/15/2020 [facility] 25 mg 03/16/2020 12:00:00 AM EST tablet 30 TAKE ONE TABLET BY MOUTH EVERY DAY TAKE ONE TABLET BY MOUTH EVERY DAY SOLD: 05/03/2020 [facility] 20 mg 03/16/2020 12:00:00 AM EST tablet 30 TAKE ONE TABLET BY MOUTH EVERY DAY TAKE ONE TABLET BY MOUTH EVERY DAY SOLD: 05/03/2020 [facility] 25 mg 03/16/2020 12:00:00 AM EST tablet 30 TAKE ONE TABLET BY MOUTH EVERY DAY TAKE ONE TABLET BY MOUTH EVERY DAY SOLD: 03/16/2020 [facility] 20 mg 03/16/2020 12:00:00 AM EST tablet 30 TAKE ONE TABLET BY MOUTH EVERY DAY TAKE ONE TABLET BY MOUTH EVERY DAY SOLD: 03/16/2020 [facility] Spironolactone 25 MG Oral Tablet spironolactone (ALDAC TONE) 25 MG tablet spironolactone (ALDACTONE) 25 MG tablet 03/15/2020 12:00:00 AM EST 25 mg Oral active Take 1 tablet (25 mg tota l) by mouth daily [facility] torsemide 20 MG Oral Tablet torsemide (DEMADEX) 20 MG tablet torsemide (DEMADEX) 20 MG tablet 03/15/2020 12:00:00 AM EST 20 mg Oral acti ve Take 1 tablet (20 mg total) by mouth daily [facility] 24 HR metoprolol succinate 50 MG Extende d Release Oral Tablet metoprolol succinate (TOPROL-XL) 50 MG 24 hr tablet metoprolol succinate (TOPROL-XL) 50 MG 24 hr tablet 02/21/2020 12:00:00 AM EST 50 mg Oral abort ed Take 50 mg by mouth daily [facility] Benazepril hydrochloride 20 MG / Hydroch lorothiazide 25 MG Oral Tablet benazepril-hydrochlorthiazide (LOTENSIN HCT) 20-25 MG per tablet benazepril- hydrochlorthiazide (LOTENSIN HCT) 20-25 MG per tablet 02/21/2020 12:00:00 AM EST 1 {tbl} Oral aborted Take 1 tablet b y mouth daily [facility] 20-25 mg 02/21/2020 12:00:00 AM EST tablet 30 TAKE ONE TABLET BY MOUTH EVERY DAY TAKE ONE TABLET BY MOUTH EVERY DAY SOLD: 02/22/2020 [facility] 1,250 mcg (50,000 unit) 01/25/2020 12:00:00 AM EST capsule 4 TAKE ONE CAPSULE BY MOUTH WEEKLY TAKE ONE CAPSULE BY MOUTH WEEKLY SOLD: 03/16/2020 [facility] 1,250 mcg (50,000 unit) 01/25/2020 12:00:00 AM EST capsule 4 TAKE ONE CAPSULE BY MOUTH WEEKLY TAKE ONE CAPSULE BY MOUTH WEEKLY SOLD: 02/01/2020 [facility] Ergocalciferol 37146 UNT Oral Capsule vi tamin D, Ergocalciferol, 1.25 MG (08097 UT) CAPS vitamin D, Ergocalciferol, 1.25 MG (30020 UT) CAPS 03/2019 12:00:00 AM EST aborted TAKE ONE CAPSULE BY MOUTH WEEKLY [facility] Ergocalciferol 93934 UNT Oral Capsule [Drisdol] Drisdo l 1.25 MG (68941 UT) Drisdol 1.25 MG (05977 UT) 01/24/2020 12:00:00 AM EST 1.0 {capsule} active Drisdol 1.25 MG (46749 UT) [facility] ([facility]) Ergocalciferol 44638 UNT Oral Capsule [Drisdol] Drisdo l 1.25 MG (04758 UT) Drisdol 1.25 MG (56146 UT) 01/24/2020 12:00:00 AM EST 1.0 {capsule} active Drisdol 1.25 MG (90678 UT) [facility] ([facility]) Ergocalciferol 05572 UNT Oral Capsule [Drisdol] Drisdo l 1.25 MG (90438 UT) Drisdol 1.25 MG (61092 UT) 01/24/2020 12:00:00 AM EST 1.0 {capsule} active Drisdol 1.25 MG (48575 UT) [facility] ([facility]) Ergocalciferol 25888 UNT Oral Capsule [Drisdol] Drisdo l 1.25 MG (93411 UT) Drisdol 1.25 MG (79979 UT) 01/24/2020 12:00:00 AM EST 1.0 {capsule} active Drisdol 1.25 MG (15431 UT) [facility] ([facility]) Ergocalciferol 96598 UNT Oral Capsule [Drisdol] Drisdo l 1.25 MG (28670 UT) Drisdol 1.25 MG (11959 UT) 01/24/2020 12:00:00 AM EST 1.0 {capsule} active Drisdol 1.25 MG (19644 UT) [facility] ([facility]) Ergocalciferol 69842 UNT Oral Capsule [Drisdol] Drisdo l 1.25 MG (35083 UT) Drisdol 1.25 MG (69248 UT) 01/24/2020 12:00:00 AM EST 1.0 {capsule} active Drisdol 1.25 MG (48321 UT) [facility] ([facility]) Ergocalciferol 14822 UNT Oral Capsule [Drisdol] Drisdo l 1.25 MG (78447 UT) Drisdol 1.25 MG (60379 UT) 01/24/2020 12:00:00 AM EST 1.0 {capsule} active Drisdol 1.25 MG (35941 UT) eCW1 ([facility]) 50 mg 01/13/2020 12:00:00 AM EST tablet extended release 24 hr 30 TAKE ONE TABLET BY MOUTH EVERY DAY TAKE ONE TABLET BY MOUTH EVERY DAY SOLD: 02/22/2020 [facility] 24 HR metoprolol succinate 50 MG Extende d Release Oral Tablet Metoprolol Succinate ER 50 MG Metoprolol Succinate ER 50 MG 01/13/2020 12:00:00 AM EST 1.0 {tablet} active Metoprolol Succinat e ER 50 MG eCW1 ([facility]) 24 HR metoprolol succinate 50 MG Extende d Release Oral Tablet Metoprolol Succinate ER 50 MG Metoprolol Succinate ER 50 MG 01/13/2020 12:00:00 AM EST 1.0 {tablet} active Metoprolol Succinat e ER 50 MG eCW1 ([facility]) 24 HR metoprolol succinate 50 MG Extende d Release Oral Tablet Metoprolol Succinate ER 50 MG Metoprolol Succinate ER 50 MG 01/13/2020 12:00:00 AM EST 1.0 {tablet} active Metoprolol Succinat e ER 50 MG eCW1 ([facility]) 50 mg 01/13/2020 12:00:00 AM EST tablet extended release 24 hr 30 TAKE ONE TABLET BY MOUTH EVERY DAY TAKE ONE TABLET BY MOUTH EVERY DAY SOLD: 03/28/2020 [facility] 24 HR metoprolol succinate 50 MG Extende d Release Oral Tablet Metoprolol Succinate ER 50 MG Metoprolol Succinate ER 50 MG 01/13/2020 12:00:00 AM EST 1.0 {tablet} active Metoprolol Succinat e ER 50 MG eCW1 ([facility]) 24 HR metoprolol succinate 50 MG Extende d Release Oral Tablet Metoprolol Succinate ER 50 MG Metoprolol Succinate ER 50 MG 01/13/2020 12:00:00 AM EST 1.0 {tablet} active Metoprolol Succinat e ER 50 MG eCW1 ([facility]) 24 HR metoprolol succinate 50 MG Extende d Release Oral Tablet Metoprolol Succinate ER 50 MG Metoprolol Succinate ER 50 MG 01/13/2020 12:00:00 AM EST 1.0 {tablet} active Metoprolol Succinat e ER 50 MG eCW1 ([facility]) pantoprazole 40 MG Delayed Release Oral Tablet pantoprazole (PROTONIX) 40 MG tablet pantoprazole (PROTONIX) 40 MG tablet 01/13/2020 12:00:00 AM EST 40 mg Oral active Take 40 mg by mouth 2 (two) times a day [facility] 50 mg 01/13/2020 12:00:00 AM EST tablet extended release 24 hr 30 TAKE ONE TABLET BY MOUTH EVERY DAY TAKE ONE TABLET BY MOUTH EVERY DAY SOLD: 01/18/2020 [facility] 24 HR metoprolol succinate 50 MG Extende d Release Oral Tablet Metoprolol Succinate ER 50 MG Metoprolol Succinate ER 50 MG 01/13/2020 12:00:00 AM EST 1.0 {tablet} active Metoprolol Succinat e ER 50 MG eCW1 ([facility]) 25 mg 11/30/2019 12:00:00 AM EDT tablet extended release 24 hr 30 TAKE ONE TABLET BY MOUTH EVERY DAY TAKE ONE TABLET BY MOUTH EVERY DAY SOLD: 12/01/2019 [facility] 20-25 mg 11/30/2019 12:00:00 AM EDT tablet 30 TAKE ONE TABLET BY MOUTH EVERY DAY TAKE ONE TABLET BY MOUTH EVERY DAY SOLD: 12/01/2019 [facility] 20-25 mg 11/30/2019 12:00:00 AM EDT tablet 30 TAKE ONE TABLET BY MOUTH EVERY DAY TAKE ONE TABLET BY MOUTH EVERY DAY SOLD: 01/13/2020 [facility] pantoprazole 40 MG Delayed Release Oral Tablet PANTOPRAZOLE SODIUM 03/25/2019 12:00:00 AM EST tablet,delayed release (DR/EC) 60 T MORGAN ONE TABLET BY MOUTH TWICE A DAY WITH FOOD TAKE ONE TABLET BY MOUTH TWICE A DAY WITH FOOD SOLD: 01/18/2020 [facility] Nadolol 20 MG Oral Tablet nadolol (CORGARD) 20 MG tabl et nadolol (CORGARD) 20 MG tablet 06/06/2016 12:00:00 AM EDT 20 mg Oral aborted Take 1 tablet by mouth daily [facility] torsemide 20 MG Oral Tablet Torsemide 20 MG Oral Table t (DEMADEX) Torsemide 20 MG Oral Tablet (DEMADEX) 20 mg Oral aborted Take 20 mg by mouth daily [facility] Benazepril hydrochloride 20 MG / Hydroch lorothiazide 25 MG Oral Tablet benazepril-hydrochlorthiazide (LOTENSIN HCT) 20-25 MG per tablet benazepril- hydrochlorthiazide (LOTENSIN HCT) 20-25 MG per tablet 1 {tbl } Oral aborted Take 1 tablet by mouth daily [facility] Metoprolol Tartrate 50 MG Oral Tablet Me toprolol Tartrate 50 MG Oral Tablet (LOPRESSOR) Metoprolol Tartrate 50 MG Oral Tablet (LOPRESSOR) 50 mg Oral aborted Take 50 mg by mouth Two Time s Daily [facility] 24 HR metoprolol succinate 50 MG Extende d Release Oral Tablet Metoprolol Succinate ER 50 MG Oral Tablet Extended Release 24 Hour (TOPROL-XL) Metoprolol Succinate ER 50 MG Oral Tablet Extended Release 24 Hour (TOPROL-XL) 50 mg Oral aborted Take 50 mg by mouth daily [facility] Insurance Providers Payer name Policy type / Coverage type Policy ID Covered libertarian ID Covered libertarian's relationship to guzman Policy Guzman Plan Information [facility] M[facility]O [id number] SP [id number] MEDICAID [id number] SP [id number] MEDICAID M [id number] Self [id number] [facility] [id number] SP [id number] SELF PAY CONTRACTS UNAVAILABLE Manuela UNAVAILABLE [facility] MEDICAID [id number] xxxxxxxxx [id number] [facility] MEDICAID [id number] Manuela [id number] 50 [facility] I [id number] Self [id number] SELF PAY ONLY UNK SP UNK ANSI-Not a Secondary Insurance [id number] ANSI-Not a Secondary Insurance [id number] ANSI-Not a Secondary Insurance [id number] ANSI-Not a Secondary Insurance [id number] [facility] [id number] SP [id number] [facility] Health Maintenance Organization (HMO) [id number] Self [id number] [facility] [id number] SP [id number] [facility] [id number] SP [id number] [facility] O [id number] S [id number] [facility] [id number] SP [id number] [facility] [id number] SP [id number] [facility] MEDICAID [id number] S [id number] EMEDNY [id number] SP [id number] SELF PAY ONLY - SP1 SP MEDICAID [id number] SP [id number] SELF PAY ONLY NONE SP NONE SELF PAY [place] [id number] [place] [id number] Problems, Conditions, and Diagnoses Code Display Name Description Problem Type Effective Dates Data Source(s) fol fol Diagnosis 12/14/2020 12:00:00 AM ED T [facility] I10 Essential (primary) hypertension Essential (primary) h ypertension Diagnosis 10/02/2020 09:18:51 AM EDT [facility] K70.31 Alcoholic cirrhosis of liver with ascite s Alcoholic cirrhosis of liver with ascite Diagnosis 10/02/2020 09:18:51 AM EDT [facility] D69.6 Thrombocytopenia, unspecified Thrombocytopenia, unspec ified Diagnosis 09/03/2020 02:29:12 PM EDT [facility] I49.3 Ventricular premature depolarization Ventricular premature depolarization Diagnosis 09/03/2020 02:29:12 PM EDT [facility] R60.1 Generalized edema Generalized edema Diagnosis 07/14/2020 11:02:00 PM EDT [facility] R14.0 Abdominal distension (gaseous) Abdominal distension (g aseous) Diagnosis 07/14/2020 11:02:00 PM [facility] Ascites Ascites Diagnosis 07/14/2020 11:02:00 PM [facility] Z79.899 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 Diagnosis 07/14/2020 [facility] CONTACT WITH AND (SUSPECTED) EXPOSURE TO COVID-19 CONTACT WITH AND (SUSPECTED) EXPOSURE TO COVID-19 Diagnosis 07/14/2020 06:15:00 PM [facility] F17.210 Nicotine dependence, cigarettes, uncompl icated NICOTINE DEPENDENCE, CIGARETTES, UNCOMPLICATED Diagnosis 07/14/2020 06:15:00 PM [facility] I10 Essential (primary) hypertension ESSENTIAL (PRIMARY) H YPERTENSION Diagnosis 07/14/2020 06:15:00 PM [facility] R60.1 Generalized edema GENERALIZED EDEMA Diagnosis 07/14/2020 06:15:00 PM [facility] K74.60 Unspecified cirrhosis of liver UNSPECIFIED CIRRHOSIS O F LIVER Diagnosis 07/14/2020 06:15:00 PM [facility] R22.43 Localized swelling, mass and lump, lower limb, bilateral LOCALIZED SWELLING, MASS AND LUMP, LOWER LIMB, BILATERAL Diagnosis 021 06:15:00 PM [facility] hosp D/C hosp D/C Diagnosis 07/13/2020 12:00:00 AM [facility] R18.8 Other ascites Other ascites Diagnosis 07/04/2020 12:29:48 PM [facility] K70.31 Alcoholic cirrhosis of liver with ascite s Alcoholic cirrhosis of liver with ascites Diagnosis 06/12/2020 06:27:53 PM [facility] K72.90 Hepatic failure, unspecified without com a Hepatic failure, unspecified without coma Diagnosis 06/12/2020 06:27:51 PM [facility] S22.009S Unspecified fracture of unspecified thor acic vertebra, sequela Unspecified fracture of unspecified thoracic vertebra, sequela Diagnosis 06/12/2020 06:21:44 PM [facility] S22.001A Stable burst fracture of uns pecified thoracic vertebra, initial encounter for closed fracture Stable burst fracture of unspecified tho racic vertebra, initial encounter for closed fracture Diagnosis 2020 06:21:42 PM [facility] Z20.822 Contact with and (suspected) exposure to covid-19 Contact with and (suspected) exposure to covid-19 Diagnosis 06/12/2020 01:20:00 AM [facility] Y92.[address] in unspeci fied non-institutional (private) residence as the place of occurrence of the external cause Unspecified place in unspecified non-institutional (private) residence as the place of occurrence of the external cause Diagnosis 06/12/2020 01:20:00 AM [facility] Y93.89 Activity, other specified Activity, other specified Di agnosis 06/12/2020 01:20:00 AM [facility] W08.XXXA Fall from other furniture, initial encou nter Fall from other furniture, initial encounter Diagnosis 06/12/2020 01:20:00 AM [facility] F17.210 Nicotine dependence, cigarettes, uncompl icated Nicotine dependence, cigarettes, uncomplicated Diagnosis 06/12/2020 01:20:00 AM [facility] K42.9 Umbilical hernia without obstruction or gangrene Umbilical hernia without obstruction or gangrene Diagnosis 06/12/2020 01:20:00 AM [facility] I10 Essential (primary) hypertension Essential (primary) h ypertension Diagnosis 06/12/2020 01:20:00 AM [facility] S22.42XA Multiple fractures of ribs, left side, initial encounter for closed fracture Multiple fractures of ribs, left side, i nitial encounter for closed fracture Diagnosis 06/12/2020 01:20:00 AM [facility] S22.089A Unspecified fracture of T11- T12 vertebra, initial encounter for closed fracture Unspecified fracture of t11-T12 vertebra , initial encounter for closed fracture Diagnosis 06/12/2020 01:20:00 AM [facility] T11 fracture, cirrhosis of liver and asc ites T11 fracture, cirrhosis of liver and ascites Diagnosis 06/12/2020 01:20:00 AM [facility] Y93.89 Activity, other specified ACTIVITY, OTHER SPECIFIED Di agnosis 06/11/2020 05:37:00 PM [facility] Y92.[address] in unspeci fied non-institutional (private) residence as the place of occurrence of the external cause UNSP PLACE IN UNSP NON-INSTITUT (PRIVATE) RESIDENC Diagnosis 06/11/2020 05:37:00 PM [facility] W07.XXXA Fall from chair, initial encounter FALL FROM JOSE IR, INITIAL ENCOUNTER Diagnosis 06/11/2020 05:37:00 PM [facility] K70.31 Alcoholic cirrhosis of liver with ascite s ALCOHOLIC CIRRHOSIS OF LIVER WITH ASCITES Diagnosis 06/11/2020 05:37:00 PM [facility] S22.32XA Fracture of one rib, left side, initial encounter for closed fracture FRACTURE OF ONE RIB, LEFT SIDE, INIT FOR CLOS FX Diagnosis 06/11 05:37:00 PM [facility] S22.080A Wedge compression fracture o f T11-T12 vertebra, initial encounter for closed fracture WEDGE COMPRESSION FRACTURE OF T11-T12 VERTEBRA, IN Diagnosis 06/11/2020 05:37:00 PM [facility] D69.3 Immune thrombocytopenic purpura IMMUNE THROMBOCYTOPENI C PURPURA Diagnosis 06/11/2020 05:37:00 PM [facility] D63.8 Anemia in other chronic diseases classif ied elsewhere ANEMIA IN OTHER CHRONIC DISEASES CLASSIFIED ELSEWH Diagnosis 06/11/2020 05:37:00 PM [facility] G89.11 Acute pain due to trauma ACUTE PAIN DUE TO TRAUMA Diag nosis 06/11/2020 05:37:00 PM [facility] M54.5 Low back pain LOW BACK PAIN Diagnosis 06/11/2020 05:37:00 PM [facility] S39.92XA Unspecified injury of lower back, initia l encounter UNSPECIFIED INJURY OF LOWER BACK, INITIAL ENCOUNTER Diagnosis 06/11/2020 05:37:00 PM [facility] F10.10 Alcohol abuse, uncomplicated Alcohol abuse, uncomplica jaden Diagnosis 03/15/2020 02:06:23 PM [facility] R94.31 Abnormal electrocardiogram [ECG] [EKG] A bnormal electrocardiogram (ECG) (EKG) Diagnosis 03/15/2020 02:06:23 PM [facility] R06.02 Shortness of breath Shortness of breath Diagnosis 0 03/15/2020 02:06:23 PM [facility] R93.5 Abnormal findings on diagnos tic imaging of other abdominal regions, including retroperitoneum ABN FINDINGS ON DX IMAGING OF ABD REGIONS, INC RET Diagnosis 02/08/2020 08:00:00 AM [facility] K40.31 Unilateral inguinal hernia, with obstruction, without gangrene, recurrent UNILATERAL INGUINAL HERNIA, W OBST, W/O GANGRENE, Diagnosis 02/08/2020 08:00:00 AM [facility] K80.20 Calculus of gallbladder without cholecys titis without obstruction CALCULUS OF GALLBLADDER W/O CHOLECYSTITIS W/O OBST Diagnosis 08:00:00 AM [facility] R93.2 Abnormal findings on diagnostic imaging of liver and biliary tract ABNORMAL FINDINGS ON DX IMAGING OF LIVER AND BILIA Diagnosis 08:00:00 AM [facility] B18.2 Chronic viral hepatitis C CHRONIC VIRAL HEPATITIS C Di agnosis 02/08/2020 08:00:00 AM [facility] N50.89 OTHER SPECIFIED DISORDERS OF THE MALE GE NITAL ORGANS OTHER SPECIFIED DISORDERS OF THE MALE GENITAL ORGANS Diagnosis 02/08/2020 08:00:00 AM [facility] K72.90 [id number] Hepatic encephalopathy Problem 10/24/2020 12 :00:00 AM EDT eCW1 ([facility]) S22.081A [id number] T12 burst fracture Problem 07/31/2020 12:00: 00 AM EDT eCW1 ([facility]) K70.31 [id number] Ascites due to alcoholic cirrhosis Pr oblem 07/31/2020 12:00:00 AM EDT eCW1 ([facility]) F17.209 [id number] Nicotine dependence with nicotine-induced disorder, unspecified nicotine product type Problem 07/25/2020 12:00:00 AM EDT eCW1 ([facility]) K74.60 [id number] Unspecified cirrhosis of liver Problem 07/25/2020 12:00:00 AM EDT eCW1 ([facility]) R18.8 Ascites Other ascites Problem 07/25/2020 12:00:00 AM EDT eCW1 ([facility]) R14.0 Abdominal distension Abdominal distension [id number] 07/15/2020 12:00:00 AM EDT [facility] R18.8 Other ascites Other ascites [id number] 07/04/2020 12:00:00 AM EDT [facility] R17 [id number] Jaundice Problem 06/15/2020 12:00:00 AM ED T eC1 ([facility]) S22.001A Traumatic burst fracture of thoracic vertebra, closed, initial encounter Traumatic burst fracture of thoracic sage tebra, closed, initial encounter [id number] 06/12/2020 12:00:00 AM EDT [facility] T14.90XA Trauma Trauma [id number] 06/12/2020 12:00:00 AM ED T [facility] E83.42 Hypomagnesemia Hypomagnesemia [id number] 06/12/2020 12:00: 00 AM EDT [facility] E87.6 Hypokalemia Hypokalemia [id number] 06/12/2020 12:00:00 AM EDT [facility] B19.20 Hepatitis C Hepatitis C [id number] 06/12/2020 12:00:00 AM EDT [facility] S22.009S Fracture of thoracic spine, unspecified fracture morphology, sequela Fracture of thoracic spine, unspecified fracture morphology, sequela [id number] 06/12/2020 12:00:00 AM EDT [facility] K72.90 Encephalopathy, portal systemic Encephalopathy, portal systemic [id number] 06/12/2020 12:00:00 AM EDT [facility] K74.60 Cirrhosis of liver with ascites Cirrhosis of liver wit h ascites [id number] 06/12/2020 12:00:00 AM EDT [facility] R27.8 Asterixis Asterixis [id number] 06/12/2020 12:00:00 AM ED T [facility] N17.9 BARTOLO (acute kidney injury) BARTOLO (acute kidney injury) [id number] 06/12/2020 12:00:00 AM EDT [facility] K70.31 Alcoholic cirrhosis of liver with ascite s Alcoholic cirrhosis of liver with ascites [id number] 03/15/2020 12:00:00 AM EST [facility] I49.3 PVC's (premature ventricular contraction s) PVC's (premature ventricular contractions) [id number] 03/10/2020 12:00:00 AM EST [facility] R94.31 Abnormal EKG Abnormal EKG [id number] 03/10/2020 12:00:00 A M EST [facility] N45.1 [id number] Epididymitis, right Problem 03/02/2020 12:00 :00 AM EST eCW1 ([facility]) K40.90 [id number] Inguinal hernia of left side wit hout obstruction or gangrene Problem 03/02/2020 12:00:00 AM EST eCW1 ([facility]) E78.5 Dyslipidemia Dyslipidemia Problem 12/11/2019 12:00:00 A M EDT eCW1 ([facility]) Surgeries/Procedures Procedure Description Date Indications Data Source(s) OFFICE OUTPATIENT NEW 45 MINUTES 12/12/2020 12:00:00 A M EDT [place] ([facility]) Imm: Shingrix 50mcg/0.5mL IM Zoster 12/06/2020 12:00:0 0 AM EDT eCW1 ([facility]) RADEX SPINE THORACIC 2 VIEWS <td>XR THORACIC SPINE AP AND LATERAL</td><td>Routine</td><td>09/07/2020 9:25 AM EDT</td><td> Traumatic burst fracture of thoracic vertebra, closed, initial encounter</td><td> </td> 09/07/2020 09:25:00 AM EDT Traumatic burst fracture of thoracic vertebra, closed, initial encounter [facility] Traumatic burst fracture of thoracic sage tebra, closed, initial encounter ECG ROUTINE ECG W/LEAST 12 LDS W/I&R <td>POCT AMB EKG</td><td>Routine</td><td>09/03/2020 3:29 PM EDT</td><td> PVC's (premature ventricular contractions)</td><td> </td> 09/03/2020 03:29:00 PM EDT PVC's (premature ventricular contractions) [facility] PVC's (premature ventricular contraction s) PNEUMOCOCCAL POLYSAC VACCINE 23-V 2 />YR SUBQ/IM 08/14 12:00:00 AM EDT eCW1 ([facility]) Imm: Shingrix 50mcg/0.5mL IM Zoster 08/14/2020 12:00:0 0 AM EDT eCW1 ([facility]) ABDOM PARACENTESIS DX/THER W IMAGING GUIDANCE <td>IR I MAGE GUIDED NEEDLE DRAIN PROCEDURE</td><td>Pending Discharge</td><td>07/16/2020 10:45 AM EDT</td><td></td><td></td> 07/16/2020 10:45:00 AM EDT [facility] ALBUMIN FLUID <td>ALBUMIN FLUID</td><td>Ro utine</td><td>07/16/2020 10:15 AM EDT</td><td></td><td> </td> 07/16/2020 10:15:00 AM [facility] BODY FLUID CULTURE AND GRAM STAIN <td>BODY FLUID CULTU RE AND GRAM STAIN</td><td>Routine</td><td>07/16/2020 10:15 AM EDT</td><td></td><td></td> 07/16/2020 10:15:00 AM [facility] CELL COUNT, SEROUS FLUID <td>CELL COUNT, SEROUS FLUID</td><td>Routine</td><td>07/16/2020 10:15 AM EDT</td><td></td><td> </td> 07/16/2020 10:15:00 AM [facility] BLOOD COUNT COMPLETE AUTO&AUTO DIFRNTL WBC COUNT <td>C BC AND DIFFERENTIAL</td><td>Routine</td><td>07/16/2020 3:59 AM EDT</td><td></td><td> </td> 07/16/2020 03:59:00 AM [facility] PHOSPHORUS INORGANIC <td>PHOSPHORUS LEVEL</td><td >Routine</td><td>07/16/2020 3:59 AM EDT</td><td></td><td> </td> 07/16/2020 03:59:00 AM [facility] MAGNESIUM <td>MAGNESIUM LEVEL</td><td> Routine</td><td>07/16/2020 3:59 AM EDT</td><td></td><td> </td> 07/16/2020 03:59:00 AM [facility] COMPREHENSIVE METABOLIC PANEL <td>COMPREHENSIVE METABO LIC PANEL</td><td>Routine</td><td>07/16/2020 3:59 AM EDT</td><td></td><td> </td> 07/16/2020 03:59:00 AM [facility] EKG 12-LEAD - CMAXX REPORT <td>EKG 12-LEAD - CMAXX REPORT</td><td></td><td>07/15/2020 10:25 PM EDT</td><td></td><td></td> 07/15/2020 10:25:40 PM [facility] EKG 12-LEAD - CMAXX REPORT <td>EKG 12-LEAD - CMAXX REPORT</td><td></td><td>07/15/2020 10:25 PM EDT</td><td></td><td></td> 07/15/2020 10:25:40 PM [facility] EKG 12-LEAD <td>EKG 12-LEAD</td><td>Rout ine</td><td>07/15/2020 10:25 PM EDT</td><td></td><td> </td> 07/15/2020 10:25:40 PM [facility] EKG 12-LEAD - CMAXX REPORT <td>EKG 12-LEAD - CMAXX REPORT</td><td></td><td>07/15/2020 10:24 PM EDT</td><td></td><td></td> 07/15/2020 10:24:27 PM [facility] EKG 12-LEAD - CMAXX REPORT <td>EKG 12-LEAD - CMAXX REPORT</td><td></td><td>07/15/2020 10:24 PM EDT</td><td></td><td></td> 07/15/2020 10:24:27 PM [facility] EKG 12-LEAD <td>EKG 12-LEAD</td><td>Rout ine</td><td>07/15/2020 10:24 PM EDT</td><td></td><td> </td> 07/15/2020 10:24:27 PM [facility] EKG 12-LEAD - CMAXX REPORT <td>EKG 12-LEAD - CMAXX REPORT</td><td></td><td>07/15/2020 10:23 PM EDT</td><td></td><td></td> 07/15/2020 10:23:56 PM [facility] EKG 12-LEAD - CMAXX REPORT <td>EKG 12-LEAD - CMAXX REPORT</td><td></td><td>07/15/2020 10:23 PM EDT</td><td></td><td></td> 07/15/2020 10:23:56 PM [facility] EKG 12-LEAD <td>EKG 12-LEAD</td><td>Rout ine</td><td>07/15/2020 10:23 PM EDT</td><td></td><td> </td> 07/15/2020 10:23:56 PM [facility] AMMONIA <td>AMMONIA LEVEL</td><td>Ro utine</td><td>07/15/2020 6:47 AM EDT</td><td></td><td> </td> 07/15/2020 06:47:00 AM [facility] URNLS DIP STICK/TABLET REAGENT AUTO MICROSCOPY <td>URI NALYSIS WITH MICROSCOPIC</td><td>STAT</td><td>07/15/2020 3:57 AM EDT</td><td></td><td> </td> 07/15/2020 03:57:00 AM [facility] RESPIRATORY PATHOGEN PANEL <td>RESPIRATORY PATHOGEN PANEL</td><td>Routine</td><td>07/15/2020 3:50 AM EDT</td><td></td><td> </td> 07/15/2020 03:50:00 AM [facility] COVID-19 PCR <td>COVID-19 PCR</td><td>Rou jerardo</td><td>07/15/2020 3:50 AM EDT</td><td></td><td> </td> 07/15/2020 03:50:00 AM [facility] THROMBOPLASTIN TIME PARTIAL PLASMA/WHOLE BLOOD <td>PAR TIAL THROMBOPLASTIN TIME (PTT)</td><td>Routine</td><td>07/15/2020 3:50 AM EDT</td><td></td><td> </td> 07/15/2020 03:50:00 AM [facility] PROTHROMBIN TIME <td>PROTIME INR</td><td>STAT </td><td>07/15/2020 3:50 AM EDT</td><td></td><td> </td> 07/15/2020 03:50:00 AM [facility] BLOOD COUNT COMPLETE AUTO&AUTO DIFRNTL WBC COUNT <td>C BC AND DIFFERENTIAL</td><td>Routine</td><td>07/15/2020 3:50 AM EDT</td><td></td><td> </td> 07/15/2020 03:50:00 AM [facility] PHOSPHORUS INORGANIC <td>PHOSPHORUS LEVEL</td><td >Routine</td><td>07/15/2020 3:50 AM EDT</td><td></td><td> </td> 07/15/2020 03:50:00 AM [facility] MAGNESIUM <td>MAGNESIUM LEVEL</td><td> Routine</td><td>07/15/2020 3:50 AM EDT</td><td></td><td> </td> 07/15/2020 03:50:00 AM [facility] HEPATIC FUNCTION PANEL <td>HEPATIC FUNCTION PANEL A</td><td>STAT</td><td>07/15/2020 3:50 AM EDT</td><td></td><td> </td> 07/15/2020 03:50:00 AM [facility] BASIC METABOLIC PANEL CALCIUM TOTAL <td>BASIC METABOLI C PANEL</td><td>STAT</td><td>07/15/2020 3:50 AM EDT</td><td></td><td> </td> 07/15/2020 03:50:00 AM EDT [facility] RADEX SPINE THORACIC 2 VIEWS <td>XR THORACIC SPINE AP AND LATERAL</td><td>Routine</td><td>07/13/2020 9:52 AM EDT</td><td> Fracture of thoracic spine, unspecified fracture morphology, sequela</td><td> </td> 07/13/2020 09:52:22 AM EDT Fracture of thoracic spine, unspecified fracture morph ology, sequela [facility] Fracture of thoracic spine, unspecified fracture morphology, sequela ABDOM PARACENTESIS DX/THER W IMAGING GUIDANCE <td>IR I MAGE GUIDED NEEDLE DRAIN PROCEDURE</td><td>Routine</td><td>07/04/2020 1:49 PM EDT</td><td> Other ascites</td><td> </td> 07/04/2020 01:49:21 PM EDT Other [facility] Other ascites BLOOD COUNT COMPLETE AUTO&AUTO DIFRNTL WBC COUNT <td>C BC AND DIFFERENTIAL</td><td>Routine</td><td>06/19/2020 12:55 AM EDT</td><td></td><td> </td> 06/19/2020 12:55:00 AM [facility] BASIC METABOLIC PANEL CALCIUM TOTAL <td>BASIC METABOLI C PANEL</td><td>Routine</td><td>06/19/2020 12:55 AM EDT</td><td></td><td> </td> 06/19/2020 12:55:00 AM [facility] PROTHROMBIN TIME <td>PROTIME INR</td><td>Rout ine</td><td>06/18/2020 6:41 PM EDT</td><td></td><td> </td> 06/18/2020 06:41:00 PM [facility] PARACENTESIS <td>PARACENTESIS</td><td>Rou jerardo</td><td>06/18/2020 5:30 PM EDT</td><td></td><td></td> 06/18/2020 05:30:10 PM EDT [facility] BLOOD COUNT COMPLETE AUTO&AUTO DIFRNTL WBC COUNT <td>C BC AND DIFFERENTIAL</td><td>Routine</td><td>06/18/2020 8:00 AM EDT</td><td></td><td> </td> 06/18/2020 08:00:00 AM [facility] COMPREHENSIVE METABOLIC PANEL <td>COMPREHENSIVE METABO LIC PANEL</td><td>Routine</td><td>06/18/2020 8:00 AM EDT</td><td></td><td> </td> 06/18/2020 08:00:00 AM [facility] COVID-19 PCR <td>COVID-19 PCR</td><td>Rou jerardo</td><td>06/17/2020 12:25 PM EDT</td><td></td><td> </td> 06/17/2020 12:25:00 PM [facility] BLOOD COUNT COMPLETE AUTO&AUTO DIFRNTL WBC COUNT <td>C BC AND DIFFERENTIAL</td><td>Routine</td><td>06/17/2020 1:10 AM EDT</td><td></td><td> </td> 06/17/2020 01:10:00 AM [facility] PHOSPHORUS INORGANIC <td>PHOSPHORUS LEVEL</td><td >Routine</td><td>06/17/2020 1:10 AM EDT</td><td></td><td> </td> 06/17/2020 01:10:00 AM [facility] MAGNESIUM <td>MAGNESIUM LEVEL</td><td> Routine</td><td>06/17/2020 1:10 AM EDT</td><td></td><td> </td> 06/17/2020 01:10:00 AM [facility] BASIC METABOLIC PANEL CALCIUM TOTAL <td>BASIC METABOLI C PANEL</td><td>Routine</td><td>06/17/2020 1:10 AM EDT</td><td></td><td> </td> 06/17/2020 01:10:00 AM [facility] BLOOD COUNT COMPLETE AUTO&AUTO DIFRNTL WBC COUNT <td>C BC AND DIFFERENTIAL</td><td>Routine</td><td>06/16/2020 3:51 AM EDT</td><td></td><td> </td> 06/16/2020 03:51:00 AM [facility] PHOSPHORUS INORGANIC <td>PHOSPHORUS LEVEL</td><td >Routine</td><td>06/16/2020 3:51 AM EDT</td><td></td><td> </td> 06/16/2020 03:51:00 AM [facility] MAGNESIUM <td>MAGNESIUM LEVEL</td><td> Routine</td><td>06/16/2020 3:51 AM EDT</td><td></td><td> </td> 06/16/2020 03:51:00 AM [facility] BASIC METABOLIC PANEL CALCIUM TOTAL <td>BASIC METABOLI C PANEL</td><td>Routine</td><td>06/16/2020 3:51 AM EDT</td><td></td><td> </td> 06/16/2020 03:51:00 AM [facility] BLOOD COUNT COMPLETE AUTO&AUTO DIFRNTL WBC COUNT <td>C BC AND DIFFERENTIAL</td><td>Routine</td><td>06/15/2020 1:32 AM EDT</td><td></td><td> </td> 06/15/2020 01:32:00 AM [facility] PHOSPHORUS INORGANIC <td>PHOSPHORUS LEVEL</td><td >Routine</td><td>06/15/2020 1:32 AM EDT</td><td></td><td> </td> 06/15/2020 01:32:00 AM [facility] MAGNESIUM <td>MAGNESIUM LEVEL</td><td> Routine</td><td>06/15/2020 1:32 AM EDT</td><td></td><td> </td> 06/15/2020 01:32:00 AM [facility] HEPATIC FUNCTION PANEL <td>HEPATIC FUNCTION PANEL A</td><td>Routine</td><td>06/15/2020 1:32 AM EDT</td><td></td><td> </td> 06/15/2020 01:32:00 AM [facility] BASIC METABOLIC PANEL CALCIUM TOTAL <td>BASIC METABOLI C PANEL</td><td>Routine</td><td>06/15/2020 1:32 AM EDT</td><td></td><td> </td> 06/15/2020 01:32:00 AM [facility] COVID-19 PCR <td>COVID-19 PCR</td><td>Rou jerardo</td><td>06/14/2020 4:04 PM EDT</td><td></td><td> </td> 06/14/2020 04:04:00 PM [facility] RADEX SPINE THORACIC 2 VIEWS <td>XR THORACIC SPINE AP AND LATERAL</td><td>Routine</td><td>06/14/2020 12:50 PM EDT</td><td></td><td> </td> 06/14/2020 12:50:18 PM [facility] AMMONIA <td>AMMONIA LEVEL</td><td>Ro utine</td><td>06/14/2020 11:16 AM EDT</td><td></td><td> </td> 06/14/2020 11:16:00 AM [facility] SODIUM URINE <td>SODIUM, URINE, RANDOM</t d><td>Routine</td><td>06/14/2020 8:38 AM EDT</td><td></td><td> </td> 06/14/2020 08:38:00 AM [facility] OSMOLALITY URINE <td>OSMOLALITY, URINE</td><t d>Routine</td><td>06/14/2020 8:38 AM EDT</td><td></td><td> </td> 06/14/2020 08:38:00 AM [facility] BLOOD COUNT COMPLETE AUTO&AUTO DIFRNTL WBC COUNT <td>C BC AND DIFFERENTIAL</td><td>Routine</td><td>06/14/2020 3:15 AM EDT</td><td></td><td> </td> 06/14/2020 03:15:00 AM [facility] PHOSPHORUS INORGANIC <td>PHOSPHORUS LEVEL</td><td >Routine</td><td>06/14/2020 3:15 AM EDT</td><td></td><td> </td> 06/14/2020 03:15:00 AM [facility] MAGNESIUM <td>MAGNESIUM LEVEL</td><td> Routine</td><td>06/14/2020 3:15 AM EDT</td><td></td><td> </td> 06/14/2020 03:15:00 AM [facility] BASIC METABOLIC PANEL CALCIUM TOTAL <td>BASIC METABOLI C PANEL</td><td>Routine</td><td>06/14/2020 3:15 AM EDT</td><td></td><td> </td> 06/14/2020 03:15:00 AM [facility] BLOOD COUNT COMPLETE AUTO&AUTO DIFRNTL WBC COUNT <td>C BC AND DIFFERENTIAL</td><td>Routine</td><td>06/13/2020 3:49 AM EDT</td><td></td><td> </td> 06/13/2020 03:49:00 AM [facility] PHOSPHORUS INORGANIC <td>PHOSPHORUS LEVEL</td><td >Routine</td><td>06/13/2020 3:49 AM EDT</td><td></td><td> </td> 06/13/2020 03:49:00 AM [facility] MAGNESIUM <td>MAGNESIUM LEVEL</td><td> Routine</td><td>06/13/2020 3:49 AM EDT</td><td></td><td> </td> 06/13/2020 03:49:00 AM [facility] BASIC METABOLIC PANEL CALCIUM TOTAL <td>BASIC METABOLI C PANEL</td><td>Routine</td><td>06/13/2020 3:49 AM EDT</td><td></td><td> </td> 06/13/2020 03:49:00 AM [facility] BASIC METABOLIC PANEL CALCIUM TOTAL <td>BASIC METABOLI C PANEL</td><td>Routine</td><td>06/12/2020 8:08 PM EDT</td><td></td><td> </td> 06/12/2020 08:08:[address] [facility] [address] HEAD/BRAIN W/O CONTRAST MATERIAL <td>CT HEAD WITHOU T CONTRAST [id number]</td><td>Routine</td><td>06/12/2020 6:29 PM EDT</td><td></td><td> </td> 06/12/2020 06:29:41 PM [facility] TRIGLYCERIDE FLUID <td>TRIGLYCERIDE FLUID</td>< td>Routine</td><td>06/12/2020 1:54 PM EDT</td><td></td><td> </td> 06/12/2020 01:54:00 PM [facility] ALBUMIN FLUID <td>ALBUMIN FLUID</td><td>Ro utine</td><td>06/12/2020 1:54 PM EDT</td><td></td><td> </td> 06/12/2020 01:54:00 PM [facility] CUL BACT XCPT URINE BLOOD/STOOL AEROBIC ISOL <td>BODY FLUID CULTURE AND GRAM STAIN</td><td>Routine</td><td>06/12/2020 1:54 PM EDT</td><td></td><td> </td> 06/12/2020 01:54:00 PM [facility] CELL COUNT, SEROUS FLUID <td>CELL COUNT, SEROUS FLUID</td><td>Routine</td><td>06/12/2020 1:54 PM EDT</td><td></td><td> </td> 06/12/2020 01:54:00 PM [facility] PROTEIN TOTAL XCPT REFRACTOMETRY OTH SRC <td>TOTAL PRO TEIN, BODY FLUID</td><td>Routine</td><td>06/12/2020 1:54 PM EDT</td><td></td><td> </td> 06/12/2020 01:54:00 PM [facility] ECHO TTHRC R-T 2D W/WOM-MODE COMPL SPEC&COLR DOP <td>E CHOCARDIOGRAM 2D COMPLETE</td><td>Routine</td><td>06/12/2020 1:32 PM EDT</td><td></td><td> </td> 06/12/2020 01:32:22 PM [facility] CYTOLOGY NON GYNECOLOGICAL <td>CYTOLOGY NON GYNECOLOGICAL</td><td>Routine</td><td>06/12/2020 1:22 PM EDT</td><td></td><td> </td> 06/12/2020 01:22:00 PM [facility] ABDOM PARACENTESIS DX/THER W IMAGING GUIDANCE <td>ID A BDOM PARACENTESIS DX/THER W IMAGING GUIDANCE</td><td>Routine</td><td>06/12/2020 11:49 AM EDT</td><td> Alcoholic cirrhosis of liver with ascites Hepatic encephalopathy</td><td> </td> 06/12/2020 11:49:47 AM EDT Hepatic encephalopathyAlcoholic cirrhosis of liver wit h ascites [facility] Hepatic encephalopathy Alcoholic cirrhosis of liver with ascite s EKG 12-LEAD - CMAXX REPORT <td>EKG 12-LEAD - CMAXX REPORT</td><td></td><td>06/12/2020 11:33 AM EDT</td><td></td><td></td> 06/12/2020 11:33:49 AM [facility] EKG 12-LEAD - CMAXX REPORT <td>EKG 12-LEAD - CMAXX REPORT</td><td></td><td>06/12/2020 11:33 AM EDT</td><td></td><td></td> 06/12/2020 11:33:49 AM [facility] EKG 12-LEAD <td>EKG 12-LEAD</td><td>Rout ine</td><td>06/12/2020 11:33 AM EDT</td><td></td><td> </td> 06/12/2020 11:33:49 AM [facility] EKG 12-LEAD - CMAXX REPORT <td>EKG 12-LEAD - CMAXX REPORT</td><td></td><td>06/12/2020 11:33 AM EDT</td><td></td><td></td> 06/12/2020 11:33:00 AM [facility] COMPREHENSIVE METABOLIC PANEL <td>METABOLIC PANEL, COMPREHENSIVE</td><td>Routine</td><td>06/12/2020 9:49 AM EDT</td><td></td><td> </td> 06/12/2020 09:49:00 AM [facility] HEPATITIS C ANTIBODY <td>HEPATITIS C ANTIBODY</td ><td>Routine</td><td>06/12/2020 9:49 AM EDT</td><td></td><td> </td> 06/12/2020 09:49:00 AM [facility] IADNA HEPATITIS C QUANTIFICATION <td>HEPATITIS C RNA, QUANTITATIVE, PCR</td><td>Routine</td><td>06/12/2020 9:49 AM EDT</td><td></td><td> </td> 06/12/2020 09:49:00 AM [facility] MAGNESIUM <td>MAGNESIUM LEVEL</td><td> Routine</td><td>06/12/2020 9:49 AM EDT</td><td></td><td> </td> 06/12/2020 09:49:00 AM [facility] HEMOGLOBIN GLYCOSYLATED A1C <td>HEMOGLOBIN A1C</td><td>Routine</td><td>06/12/2020 9:49 AM EDT</td><td></td><td> </td> 06/12/2020 09:49:00 AM [facility] AMMONIA <td>AMMONIA LEVEL</td><td>Ro utine</td><td>06/12/2020 9:49 AM EDT</td><td></td><td> </td> 06/12/2020 09:49:00 AM [facility] XR CHEST FRONTAL ONLY [id number] <td>XR CHEST FRONTAL ONLY [id number]</td><td>Routine</td><td>06/12/2020 9:25 AM EDT</td><td></td><td> </td> 06/12/2020 09:25:43 AM [facility] RESPIRATORY PATHOGEN PANEL <td>RESPIRATORY PATHOGEN PANEL</td><td>Routine</td><td>06/12/2020 8:05 AM EDT</td><td></td><td> </td> 06/12/2020 08:05:00 AM [facility] COVID-19 PCR <td>COVID-19 PCR</td><td>Rou jerardo</td><td>06/12/2020 8:05 AM EDT</td><td></td><td> </td> 06/12/2020 08:05:00 AM [facility] MRI SPINAL CANAL THORACIC W/O CONTRAST MATRL <td>MR TH ORACIC SPINE WITHOUT CONTRAST [id number]</td><td>STAT</td><td>06/12/2020 6:46 AM EDT</td><td></td><td> </td> 06/12/2020 06:46:[address] [facility] [address] LUMBAR SPINE W/O CONTRAST MATERIAL <td>CT LUMBAR SP INE WITHOUT CONTRAST [id number]</td><td>STAT</td><td>06/12/2020 3:58 AM EDT</td><td></td><td> </td> 06/12/2020 03:58:[address] [facility] [address] THORACIC SPINE W/O CONTRAST MATERIAL <td>CT THORACI C SPINE WITHOUT CONTRAST [id number]</td><td>STAT</td><td>06/12/2020 3:58 AM EDT</td><td></td><td> </td> 06/12/2020 03:58:[address] [facility] [address] CERVICAL SPINE W/O CONTRAST MATERIAL <td>CT CERVICA L SPINE WITHOUT CONTRAST [id number]</td><td>STAT</td><td>06/12/2020 3:58 AM EDT</td><td></td><td> </td> 06/12/2020 03:58:58 AM [facility] IAAD EIA HIV-1 AG W/HIV-1&HIV-2 ANTBDY SINGLE <td>HIV AG AB COMBO SCREEN</td><td>Routine</td><td>06/12/2020 1:33 AM EDT</td><td></td><td> </td> 06/12/2020 01:33:00 AM [facility] ETHYL ALCOHOL LEVEL <td>ETHYL ALCOHOL LEVEL</td> <td>Routine</td><td>06/12/2020 1:33 AM EDT</td><td></td><td> </td> 06/12/2020 01:33:00 AM [facility] PROTHROMBIN TIME <td>PROTIME INR</td><td>Rout ine</td><td>06/12/2020 1:33 AM EDT</td><td></td><td> </td> 06/12/2020 01:33:00 AM [facility] BLOOD COUNT COMPLETE AUTOMATED <td>CBC AND DIFFERENTIAL</td><td>Routine</td><td>06/12/2020 1:33 AM EDT</td><td></td><td> </td> 06/12/2020 01:33:00 AM [facility] THYROID STIMULATING HORMONE TSH <td>TSH</td><td>Routin e</td><td>06/12/2020 1:33 AM EDT</td><td></td><td> </td> 06/12/2020 01:33:00 AM [facility] THIAMINE <td>VITAMIN B1</td><td>Routi ne</td><td>06/12/2020 1:33 AM EDT</td><td></td><td> </td> 06/12/2020 01:33:00 AM [facility] PHOSPHORUS INORGANIC <td>PHOSPHORUS LEVEL</td><td >Routine</td><td>06/12/2020 1:33 AM EDT</td><td></td><td> </td> 06/12/2020 01:33:00 AM [facility] MAGNESIUM <td>MAGNESIUM LEVEL</td><td> Routine</td><td>06/12/2020 1:33 AM EDT</td><td></td><td> </td> 06/12/2020 01:33:00 AM [facility] LIPASE <td>LIPASE LEVEL</td><td>Rou jerardo</td><td>06/12/2020 1:33 AM EDT</td><td></td><td> </td> 06/12/2020 01:33:00 AM [facility] FOLIC ACID SERUM <td>FOLATE</td><td>Routine</ td><td>06/12/2020 1:33 AM EDT</td><td></td><td> </td> 06/12/2020 01:33:00 AM [facility] CYANOCOBALAMIN VITAMIN B-12 <td>VITAMIN B12</td><td>Ro utine</td><td>06/12/2020 1:33 AM EDT</td><td></td><td> </td> 06/12/2020 01:33:00 AM [facility] HEPATIC FUNCTION PANEL <td>HEPATIC FUNCTION PANEL A</td><td>Routine</td><td>06/12/2020 1:33 AM EDT</td><td></td><td> </td> 06/12/2020 01:33:00 AM [facility] BASIC METABOLIC PANEL CALCIUM TOTAL <td>BASIC METABOLI C PANEL</td><td>Routine</td><td>06/12/2020 1:33 AM EDT</td><td></td><td> </td> 06/12/2020 01:33:00 AM [facility] ECG ROUTINE ECG W/LEAST 12 LDS W/I&R <td>POCT AMB EKG</td><td>Routine</td><td>03/15/2020 2:36 PM EST</td><td> Abnormal EKG PVC's (premature ventricular contractions)</td><td> </td> 03/15/2020 07:36:00 PM EST PVC's (premature ventricular contractions)Abnormal EKG [facility] PVC's (premature ventricular contraction s) Abnormal EKG ECG ROUTINE ECG W/LEAST 12 LDS W/I&R 01/13/2020 12:00: 00 AM EST [email or web address] ([facility]) Immunization: Flublok Quadrivalent (18 years & older) 0.5mL IM (Influenza) 01/13/2020 12:00:00 AM EST [email or web address] ([facility]) Results ID Date Data Source [id number] 12/14/2020 10:40:00 AM EDT [facility] ([facility], ) Name Value Range Interpretation Code Description Data Laura rce(s) Supporting Document(s) [id number] [Mass/volume] in Serum or Plasma 5.9 ng/mL Normal (applies to non-numeric results) [facility] ([facility], ) THE AFP ASSAY IS PERFORMED ON THE EnishR BY CHEMILUMINESCENCE AND SHOULD NOT BE COMPARED INTERCHANGEABLY WITH OTHER METHODS. IT SHOULD NOT BE USED ALONE A SCREENING TEST OR DIAGNOSIS FOR THE PRESENCE OR ABSENCE OF MALIGNANT DISEASE. THESE RESULTS ARE NOT INTERPRETABLE IN FEMALES. PREDICTIONS OF DISEASE RECURRENCE SHOULD NOT BE BASED SOLELY ON VALUES OBTAINED FROM SERIAL PATIENT SERUM VALUES. Platelets reticulated/100 platelets in Blood by Automated count 3.1 % 0.0-10.91 Normal (applies to non-numeric results) [facility], ) By: LAB DRAW Time: 917 ID Date Data Source [id number] 12/14/2020 10:40:00 AM EDT [facility] ([facility], ) Name Value Range Interpretation Code Description Data Laura rce(s) Supporting Document(s) Prothrombin Time 16.2 s 12.7-14.5 Above high normal [facility], ) Inr 1.25 Normal (applies to non-numeric resul ts) [facility] ([facility], ) THERAPUTIC HUMAN INR VALUES INDICATIONS NORMAL RANGES PROPHYLAXIS/TREATMENT OF: VENOUS THROMBOSIS 2.0-3.0 PULMONARY EMBOLISM 2.0-3.0 PREVENTION OF SYSTEMIC EMBOLISM FROM: TISSUE HEART VALVES 2.0-3.0 ACUTE MYOCARDIAL INFARCTION 2.0-3.0 VALVULAR HEART DISEASE 2.0-3.0 ATRIAL FIBRILLATION 2.0-3.0 MECHANICAL VALVES(HIGH RISK) 2.5-3.5 RECURRENT MYOCARDIAL INFARCTION 2.5-3.5 ID Date Data Source [id number] 12/14/2020 10:40:00 AM EDT [facility]) Name Value Range Interpretation Code Description Data Laura rce(s) Supporting Document(s) Bilirubin.conjugated [Mass/volume] in Serum or Plasma 0.6 mg/dL 0.0-0.2 Above high normal [facility] ([facility]) By: LAB DRAW Time: 917 By: LAB DRAW By: LAB DRAW Time: 917 By: LAB DRAW ID Date Data Source [id number] [facility] Name Value Range Interpretation Code Description Data Laura rce(s) Supporting Document(s) Blood Urea Nitrogen 20 mg/dL 7-18 Above high normal [facility] ([facility]) Glucose, Fasting 168 mg/dL 70-100 Above high normal M [facility] ([facility]) Sodium Level 136 meq/L 136-145 Normal (applies to non-numeric res ults) [facility] ([facility]) Glomerular Filtration Rate 42.8 Below low normal [facility] ([facility]) <content>Units are mL/min/1.73 m2</content>
<content></content>
<content>Chronic Kidney Disease Staging per NKF:</content>
<content></content>
<content>Stage I & II GFR >=60 Normal to Mildly Decreased</content>
<content>Stage III GFR 30- 59 Moderately Decreased</content>
<content>Stage IV GFR 15-29 Severely Decreased</content>
<content>Stage V GFR <15 Very Little GFR Left</content>
<content>ESRD GFR <15 on RESEARCH AND DEVELOPMENT DIRECTOR</content>
<content></content> Creatinine For GFR 1.74 mg/dL 0.70-1.30 Above high normal [facility] ([facility]) Chloride Level 102 meq/L 98-107 Normal (applies to non-numeric r esults) [facility] ([facility]) Potassium Serum 3.7 meq/L 3.5-5.1 Normal (applies to non-numeric results) [facility] ([facility]) Calcium Level 8.7 mg/dL 8.8-10.2 Below low normal [facility] ([facility]) Anion Gap 4 meq/L 8-16 Below low normal [facility] ( [facility]) Carbon Dioxide Level 30 meq/L 21-32 Normal (applies to non-num karla results) [facility] ([facility]) Alt/SGPT 21 U/L 12-78 Normal (applies to non-numeric resul ts) [facility] ([facility]) Ast/Sgot 24 U/L 7-37 Normal (applies to non-numeric resul ts) [facility] ([facility]) Total Protein 6.5 GM/DL 6.4-8.2 Normal (applies to non-numeric re sults) [facility] ([facility]) Bilirubin,Total 1.1 mg/dL 0.2-1.0 Above high normal [facility] ([facility]) Alkaline Phosphatase 150 U/L 45-117 Above high normal [facility] ([facility]) Albumin 2.1 GM/DL 3.2-5.2 Below low normal [facility] ( [facility]) Albumin/Globulin Ratio 0.5 Normal (applies to non-n umeric results) [facility] ([facility]) ID Date Data Source [id number] 12/14/2020 10:40:00 AM EDT [facility] ([facility]) Name Value Range Interpretation Code Description Data Laura rce(s) Supporting Document(s) White Blood Count 5.8 10 4.0-10.0 Normal (applies to non-numeri c results) [facility] ([facility]) Red Blood Count 3.30 10 4.30-6.10 Below low normal [facility] ([facility]) Hematocrit 30.2 % 42.0-52.0 Below low normal [facility] ( [facility]) Hemoglobin 9.8 g/dL 13.5-17.5 Below low normal [facility] ( [facility]) Mean Corpuscular Volume 91.5 fl 80.0-96.0 Normal ( applies to non-numeric results) [facility] ([facility]) Mean Corpuscular Hemoglobin 29.7 pg 27.0-33.0 Norm al (applies to non-numeric results) [facility] Mean Corpuscular HGB Conc 32.5 g/dL 32.0-36.5 Normal (applies to non-numeric results) [facility] ([facility]) Red Cell Distribution Width 16.4 % 11.5-14.5 Above high normal [facility] ([facility]) Platelet Count, Automated 55 10 150-450 Below low normal [facility] ([facility]) Lymph % 10.5 % 24.0-44.0 Below low normal [facility] ( [facility]) Neutrophils % 72.6 % 36.0-66.0 Above high normal [facility] ([facility]) Greer % 11.3 % 2.0-8.0 Above high normal [facility] ([facility]) Eos % 3.9 % 0.0-3.0 Above high normal [facility] ([facility]) Baso % 1.0 % 0.0-1.0 Normal (applies to non-numeric resul ts) [facility] ([facility]) Neutrophils # 4.2 10 1.5-8.5 Normal (applies to non-numeric re sults) [facility] ([facility]) Nucleated Red Blood Cell % 0.0 % 0-0 Normal (applies to n on-numeric results) [facility] ([facility]) Immature Granulocyte % 0.7 % 0-3.0 Normal (applies to non-n umeric results) [facility] ([facility]) Lymph # 0.6 10 1.5-5.0 Below low normal [facility] ( [facility], ) Greer # 0.7 10 0.0-0.8 Normal (applies to non-numeric resul ts) [facility] ([facility]) Eos # 0.2 10 0.0-0.5 Normal (applies to non-numeric resul ts) [facility] ([facility]) Baso # 0.1 10 0.0-0.2 Normal (applies to non-numeric resul ts) [facility] ([facility]) ID Date Data Source [id number] 10/16/2020 01:34:00 PM EDT [facility] Name Value Range Interpretation Code Description Data Alura rce(s) Supporting Document(s) SARS coronavirus 2 RNA [Presence] in Res piratory specimen by BRYCE with probe detection NEGATIVE [facility] This lab was ordered by [facility] a nd reported by [facility]. ID Date Data Source [id number] 09/19/2020 12:06:06 PM EDT [facility] Name Value Range Interpretation Code Description Data Laura rce(s) Supporting Document(s) Progress Note [facility] ERGEQs3gWeTMBmTy72/SMMkzQIBoc6QpCSgwRFs0RLyyEXYeG4GpTER1tP8yDKY7XYcRQqKiGlCsFnD7 [facility] [file] DQogICAgICAgICAgICAgICAgICAgICAgICAgICAgIC AgICAgICAgICAgICAgICAgICAgICAgICAgICAgICAgICAgICAgICAgICAgICAgICAgICAgICAgICAgIC AgICAgICAgICAgDQogICAgICAgICAgICAgICAgICAgICAgICAgICAgICAgICAgICAgICAgICAgICAgIC AgICAgICAgICAgICAgICAgICAgICAgICAgICAgICAg ICAgICAgICAgICAgICAgICAgICAgDQogICAgICAgICAgICAgICAgICAgICAgICAgICAgICAgICAgICAg ICAgICAgICAgICAgICAgICAgICAgICAgICAgICAgICAgICAgICAgICAgICAgICAgICAgICAgICAgICAg ICAgDQogICAgICAgICAgICAgICAgICAgICAgICAgIC AgICAgICAgICAgICAgICAgICAgICAgICAgICAgICAgICAgICAgICAgICAgICAgICAgICAgICAgICAgIC AgICAgICAgICAgICAgDQogICAgICAgICAgICAgICAgICAgICAgICAgICAgICAgICAgICAgICAgICAgIC AgICAgICAgICAgICAgICAgICAgICAgICAgICAgICAg ICAgICAgICAgICAgICAgICAgICAgICAgDQogICAgICAgICAgICAgICAgICAgICAgICAgICAgICAgICAg ICAgICAgICAgICAgICAgICAgICAgICAgICAgICAgICAgICAgICAgICAgICAgICAgICAgICAgICAgICAg ICAgICAgDQogICAgICAgICAgICAgICAgICAgICAgIC AgICAgICAgICAgICAgICAgICAgICAgICAgICAgICAgICAgICAgICAgICAgICAgICAgICAgICAgICAgIC AgICAgICAgICAgICAgICAgDQogICAgICAgICAgICAgICAgICAgICAgICAgICAgICAgICAgICAgICAgIC AgICAgICAgICAgICAgICAgICAgICAgICAgICAgICAg ICAgICAgICAgICAgICAgICAgICAgICAgICAgDQogICAgICAgICAgICAgICAgICAgICAgICAgICAgICAg ICAgICAgICAgICAgICAgICAgICAgICAgICAgICAgICAgICAgICAgICAgICAgICAgICAgICAgICAgICAg ICAgICAgICAgDQogICAgICAgICAgICAgICAgICAgIC AgICAgICAgICAgICAgICAgICAgICAgICAgICAgICAgICAgICAgICAgICAgICAgICAgICAgICAgICAgIC ZzMGPvWSMfKYCdKKRkBGSiQKSmNMb8V0urHCBkPVOkGH2xCFr4Xl5+DYgFUiXsMFV6bwDxaL0KZE8un3 EeWDacPGOyi2RpNAj4FU8FRAWmMMibBO7YHMjbgh2W MOPmAWVofSBSa2faEpSwJFR3VOAkMillYE7TQIXkM0wnbuNuJOMxQEMZCF6QEdUhV6CjlY11DXTAOx7+ BVptkkJbYcpXDfD2BRHzj7DlHGp9JC6SDGIuTiunf8OxJwYsGXRXURtnRK7AMSM6POCoKFHjQr7JLOAi M485pnNnSG0XKz6YIkVbCF4ged9OJpVpQZEeQifEAu c7MCfhPU6YmVOaDOcYzt4xikMngjEAh1ItvsRqxKQUrSntcSPxPNFkIKF1FSwxHCtuSOSrOMAoRw3iAh 5uLULdDEN1NcTePWAYRV2ZJKHuYKUizKUiASYvNWHCCT4PFVtuCDP8EGBzacEidPInCHzjZG9FKRAhka QgMTkgMCBSDQo+Tu0TUP5bn6TmJLikHPZaIM7wyj5C YJtKHiCfR9R7yPEpA3E3IDetUn1JIYVfFVAdIMcvCIYRGBpxPS8DHB0tziG4YA5DjQEpWCRkIZDkmXSc JCr8N01etDHbNMblXE6WEML+Fady+Tj6PKRPrFSSgOFEmTbZcMNBSBzDoA2MvP3LRb1UbI8JdGS13oJvq xeCoCZmjQS5RMH1gXSIrTHDSJL4IuUIttK3ohqIgHR EkOZITIoUqC77duVGwFSNwTYD7ZQZuBq7AXVMoP2OhnsUfwNjsqiQuVMMjYDOALX3GHVkjuzMlqQKviH hcUZ88eLvfNC8VVj5FObDiSP8rgm8PwGNxLv7DNKRhDu2VUHMaTJSyWNYuETQ8CUWiToXnGMbgJGGeVC BgDNZ7AVEwOTQtDJ0XLhGpWRYyLAmzQRDmDWViHHSk tm6VSGLlTVNnNZi0UCRhUPEbNDBnJNqsSVAgSZMgIIN7JVLvVNFmZC3PCrNgMYCvQAP5AfMcSUGyBQSh et0OZIUfFGFuZfF0HISaVRWmDPVxZQaeECElKQKiVQG4OSOrZIZnPY8BXxNgWKAdHCFqHkUxFLScKUYr yb1GLRJtAMDoVrIxPQUaCJKnUEUdMHvkPHLyCFC6Wu VwHHBhPZBxMH7BJeQrWHPzUNR2NsKcUWRcDDZnhq9XIYTxKHIoYPj9TkQdUCNiPPMlWCxwVOVeHVZ8SI E4HVSeRIMeCF5YXzPrEBJrOXV0ZmExQXMhXREluk3ERDVvTJUbYgUaIsWuZFAqVRKdZDxqUYDcZDU1YV ntIBFpJLSrUD3ESdJhCYVmVAyhUCzjVWDdBVZujm0T WJZjBUByOyXvMSTqQMQnZDNdYHmfTUVhONT1FRQ9YOHrKSDmRQ6MTcMlFIRoWYp2BtkrIGKsKXYqwe1D HAIiTVLkWRP5ESDlCAKkUZAyTPg9fhMonKKiKVm2MM9FI5ZaxxPoUvAGWs2Fc365XGAoMPVdGg7ZW5vz Am2pYFQvHEJFCt5HMOh8AGFiANZiYuC7FqyrWQh9IK TtGMMoTzUvCbN3UBIgYDO+ZEm9YhY5OcU2QMGjWUR0IEuuZkWnONEnSCB6SOh4LmQ8UX6iCCJBVb3+DQ fohSYlwTdsPCKTBiH9BqFvYCvrPQPKAl5J ID Date Data Source [id number] 09/07/2020 11:20:40 AM EDT [facility] Name Value Range Interpretation Code Description Data Laura rce(s) Supporting Document(s) Progress Note [facility] JRQANk3jYeSOYhVm81/HWLzcCXHej4EnMDkxWFy4MJxxRVVrO0PmEQU3tI1dGAL9XMyMKvSkWtVkShI4 lbm ZdXllABqArIEShXtoBXqJgCGgxBxtqzLGgFI5KbMY4IDRgD56kVHNyIREeP1FoFLLvKbZ+Cl7TFOEkmA QxKW5XIncM6W2su9c8Qf8+zZ6YQyjcgwo1VmxPKojV5FEPKSAZHxv3rxr9EQ3t3p4MEq6iK2/xr35zQz Bugl5M0pl35grWtYYL1Smp+GA3HPR3FPA/fbC4vqe8 nlj+t/pnrJUYXYu//02sH/BE4lM0E2FU8IEzIK3xmxD/76fMA1f4MJbwQPUeyfXCNgbazwuUV8EEanG0 6bo7XyjuwO5cg+GxUxxAsdGyREm5rlYvfJNMVgbACHv2NpNwl/AnCFDlmSRqSzbUW7diFRHAntSfzqG+ p7wVJQY78wsQO/E8LJUNYlEyfpHSJK+NXnllQGHL72 4bkX7ysOX8f9XXXVZq3+ifFdtLzJv3EfksDZafjcbgcgXwqRqkhBB8kAb4R5lJ/CvYd4p7qhvqaaIU+W CfZ+KCFz/DFwEOuJr9MHWLU0fg8yT6lJauo3ay4OzRY7yhfkKER7y62SFm4y7jysp+udK8Crr6cDt1W5 akKybeO2SnNsiyUq4MqhS29NxtyIdvZ/nfqMttrXP8 SANDRA+PYpnaT8guPus5TAhYLs1vM7zvAMRJRUOymPfPCTrRTLIgSmbZv9X0mt5vTzr8he2Nz7PO9PVqhYvs [file] [facility] [file] GeEtMsVLNbN7T8BeD8XEAqIz9zSBGYVy7+QTjudUHvkMqnPSLUIiYvYwT2CFyeYCVGNo6K ID Date Data Source [id number] 09/07/2020 10:37:33 AM EDT [facility] XR THORACIC SPINE AP AND LATERALFINAL RE SULTInterpreted by:Abimael Montoya, Buster Osborne MDINDICATION: Fracture evaluation.TECHNIQUE: 3 standing views of the thoracic spine were obtained.COMPARISON: Thoracic spine radiograph dated 07/13/2020.FINDINGS: The bones are diffusely osteopenic. Interval loss of vertebral body height, likely at T9. Remaining vertebral body heights appear unchanged. There is again multilevel thoracic spondylosis including discogenic degenerative change. There is accentuation of the thoracic kyphosis as well as a mild rightward curvature of the thoracolumbar spine. No evidence of subluxation. Visualized lung torres are clear.IMPRESSION:1. New moderate compression deformity involving a lower thoracic vertebral body, likely T9.2. Osteopenia with accentuation of the thoracic kyphosis and advanced multilevel thoracic spondylosis as above.This document has been electronically signed by Abimael Montoya MD on 09/07/2020 10:35 AM Name Value Range Interpretation Code Description Data Laura rce(s) Supporting Document(s) ID Date Data Source [id number] 07/27/2020 11:43:38 AM EDT [facility] Name Value Range Interpretation Code Description Data Laura rce(s) Supporting Document(s) History and Physical [facility] HZANHl9pTsXCDfIp81/ONNffKQNzg1OtZOziDOx5FWyvOWFiQ9KrGTN9oU4jSIU7EMxNBkGrMmRgRrE0 lbm [file] aBXwfYjuZAKPYmIcYIXwAWhrOPRHEw8D ID Date Data Source [id number] 07/18/2020 09:44:19 AM EDT [facility] IR IMAGE GUIDED NEEDLE DRAIN PROCEDUREFI NAL RESULTInterpreted by:Cherie Tsang, MDPROCEDURE: ULTRASOUND GUIDED PARACENTESISHISTORY/INDICATION: Ascites.TECHNIQUE:Operators:Attending physician: Joanie Franco M.D.Fellow: Ernie Jalloh M.D.Resident: Michele Jerry MD.,Procedural Nurse Practitioner: NonePrior to the start of the procedure a "Timeout" was called, confirming the patient by name, medical record number and date of , and the procedure to be performed was confirmed. All procedural staff within the room are in agreement.PROCEDURE/FINDINGS:Limited preprocedural abdominal ultrasound demonstrated drainable ascites fluid pocket in the right lower quadrant of the abdomen, and this site was targeted for paracentesis. The overlying skin was prepped and draped with standard sterile technique. After anesthetizing with 2% lidocaine for local anesthesia, direct ultrasound guidance was used to advance a 5 Fr Yueh needle into the ascites pocket and an image of this access was saved into PACS. A total of 6050 mL of clear yellow ascitic fluid was removed. Samples were obtained and sent the lab for analysis per the ordering physician's request. A sterile dressing was placed over the puncture site.The patient tolerated the procedure well without immediate complications. IMPRESSION: Successful and uncomplicated ultrasound guided right lower quadrant paracentesis yielding 6050 mL. Follow-up fluid analysis.This document has been electronically signed by Joanie Franco MD on 07/18/2020 9:42 AM Name Value Range Interpretation Code Description Data Laura rce(s) Supporting Document(s) ID Date Data Source [id number] 07/17/2020 01:52:43 PM EDT [facility] Name Value Range Interpretation Code Description Data Laura rce(s) Supporting Document(s) ED Provider Note [facility] GJPRMd3qRoPJLlFi24/VKTsiLRHmf2DhKXkgIQk4QAusQRWfS7ArKTG7aR5kOGX5TRpPKhHdTeCrTJK7 lbm [file] n9W74dzEKlMOgkUV0BVEL+Fady+Gw2BAWCvBQXpPPSz GdJzUNOMXnWhJ2ZsE2JFo9VnT8ViZD46fEhiogUeOZdkMX7WWX1lXLVcIUDKJX6PvMDndX2xbsQzMGFy TRHWEhBpD29cbPCnGOZvTZE1GIWgJo7RNGXzY3LkoaHdcUybzjReMLKuNCFQXK1HXMjqpxSwsNYtrKol IG80bDegMS9KHk8TAtLaOE7tfm0VuTOdMm3EBLL9HW 8HLEIqCXCbRSHgWSN2HBPwPnZcKQflFQMhYJEuFFJ6TNFgZGZnBB2UNeKvYUFmRFMxQFXyUFGkZFSncb 9QMQPcKHD4Epx4ZvCqYQUnVBSsLRtbHLBuDEAbIWK3DWWdEJSwLK6ZOaLeHBMoKOVoZHEcVLPrPXTbmb 7CUWJlFZIjSnF3SDOoNWXqOICcWWudGJKpPYA1Vbdn GPOzBOLiBP4XDmCxZTWvWKC5GFBiQIVeUWGkoi2FSYQaUNKgIZy1DKGrJKAqQVOnQObbKUFmNIO2NXX9 MRWyEFBnIJ2LIrQuOWCfHEB5TMFyKOJhIRZozt4EHTMzAKXuHPJ9RAKqDUYoPNZlQPykRTFdNCR7RlY1 IUBuOFUrYH2XGyUzKDVjQUY9FCYmFUVlOJFcbq0GBX NaBRDuWxF3FxMjBUXuLRDcIQprYAGyKUQ2Fsd9KUXjQIZnBZ1UBqNzUPTqUsXyKuMkHHPzLKVmme3KFZ RrRFTkXWS4UtIcYORcWMFvAEabXQVdMOCsHEdkOXWcCTTlFQ0QHdHeHWZeXnRmBSbuBXCyQWZfwt7SEC HmOQLwZAP0PeGdUKRcDORyFBclNGXoIUJ5DZR2OOEn YXUrQQ0CQcSxRFVeWoZ2ObxrKAUzSQNtlb2AMQPlMJWuHFW6IzCfJEZeRPKpHIzrDXZtCPN0YTs0PKJo TFCjDR7QHlPwHVSaMmIkZdLuLQTqHKFcfn5CBFQbXYZyRfIvFjHsCZYmGWIbIDrnEXJrDAZ2ViArNFMl TEAwHF7ZGxNmAUJeHqx0UERmTANuZNIpoc6VGNEnAQ HwREsgYGChCUUoLENgOCjqGJZnMKM8LPP5GTJxVWVfRO7ZNwDjYYRjWhfsAegcOEIhSTQbmm1EUBFtAO SwETR9HgBaBHMmGLAsLWdzXVMpKNY8YmXzIQXpBGNqRP9IWrYlOYHaGUJ9JTjdBEAaGVAept1VXPQkVE F1WYs2GNIjKNPoRWLmTRloLYInRGThJARcHKPrBWLj UH1HLnRgLHPlRFZ6QQDmQDNvAGDztj9NGOIbFJP3Szv9BIAlEMWeRNRyLZlfLBJtXPVgFLQjHJRgBLSn UV6RBdKpZAMhQCIxTyvtSWOwUEKbjk8RHDLyLLZ5CdA3QCUmJQAbFVHaXDqkSXYyKVRmLET1BMTyNNNz KC7GGbNtRHizRKEFAaf0DQgcU7q1LNG9RS4XY9Jgm6 ImPNQmRGGSZGiuGQ0zoqCzAISgRj3GX7gHZfd8TOTiVMYfZNUaE4R1PTBpZhYvNHL7FdEiHiwfOJRePP 0rXXuyPYPjGeM4GQIvBGx7DYEtTLN1AQH3KCEpDHMtMAV2UdPcPT1QGx9ZDkU5LBM3hNOdIn0PKTW6Uo WNQjJoRI5UAFq= ID Date Data Source [id number] 07/16/2020 04:12:08 PM EDT [facility] Name Value Range Interpretation Code Description Data Laura rce(s) Supporting Document(s) Discharge Summary [facility] ZENIVt9bQuHWWsSt41/LTJyvUNDex4UoZLfxEAp1JCyyQDEiH0FlJXX8aK2jKOV6JXsQDtXxXpFlOCV5 lbm KhLikNJkYjAICeAazXWsQtTQvtMmxgfLUdSN6YvGD4JZNzS01fDIRmQSSkF1EpOCK5TZn+Fd5WBKNccU KwEO2BTcxO0C5dw6kFFa0gny8Eu2QfEIS0wTp841ujLCZDZ6ItgILQaCxETFR2IapMALDe0/AxNz6JEs wGAbSBZ96l8ZbKcHK7n3o0+4PULMmay4+IxtE4PPgR /9Y/h6gR7BU88R+qjedU39atg+wicoNyIiesbsh/jxSoB47ra/7dWAKjK7sTeROOMAMjJtxXBZ6JD800 I67/PgYu0rK6kGGknTR8dyOaBhoTaaDyQjTrzBaqt8ie+BzgKta4FC5lQFHS2WoSDGQIxpmSUKod/OXr GdyE3kGYJTtM/8pHTBVB4mWKSQFiN6EMwy1TFIN/+a [file] lFTtv/YW/human resources advisor+8KIJ5tQgQ9uAjlQx04e/uPh06uTbRXVHCOHw/9MopVUd6dKQ8AV2xBnFgUgSX+lER5Wj lLGU8SsBG1ZK38Q+hA029jsvzV2ivDDkeD4+gjHVb6h/lTA4Dv4ftMJq1/Z/1g+d2fLkHgGxXwaubyQo h3k5l9uoZdpcFSajmeJ+0ZclKqaia4Uqhp+Coz+dsH /3QXq9PP13nPpv7Ydc6ZYEC/M9BaYUSgoNrrnDXla95w3t9wTUwGbU/uku0MnGAwaiouyNr4SM2g7YvN Zbxtcx4nDdnydpBhchycPC1BfijXRkLL0syHITbprxGWpaLrkvoxRAtBlcOpFTjWMTtCK5gdRVGzFHAM LHDPZ0GDULwlPCIdgvZu46DTLGw+T+zfMMJebjU2EH SLpUb3WtSDo5yq+iMEivxAeRixQ6gsFdrog13htVXqDSn1XOEPdptb0vdzFRw38JSXlKvVkBLLlP1h1O FpqaaQhNHftzkMa1UOu3cvXy3iQk4E+E58z+a9O39oN0hjYa9cm39rm4mPQg44M0W4NaD6YmJUJnFrQM +jZ+xsK/SvNpHYNce7eIsmk8kw4W3Hr+p/Kc5meXbi 1rPqL+fLnelgC78gKKsDvMFXSSUJf+n4fluQm2Rn4Kzdkt9cStO0Dyoj7FpFtkVcjWh8iaSHkB+FzJc8 W059TGE63Zpv80ZKuM6eGUgGpm2TnNghgeEyeFtqgdkH9SQe7GD/Uhc/nWKcOYNYtzvcWVRuMEM3Ojud IIDQTYheeODUVFHWKnBX7WVGZNey6VmZiNyihux0R2 [file] AgICAgICAgICAgICAgICAgICAgICAgICAgICAgICAgICAgICAgICAgICAgICAgICAgICAgICAgICAgIC AgICAgICAgICAgICAgICAgICAgICAgICAgICAgICAgICAgICANCiAgICAgICAgICAgICAgICAgICAgIC AgICAgICAgICAgICAgICAgICAgICAgICAgICAgICAg ICAgICAgICAgICAgICAgICAgICAgICAgICAgICAgICAgICAgICAgICAgICAgICANCiAgICAgICAgICAg ICAgICAgICAgICAgICAgICAgICAgICAgICAgICAgICAgICAgICAgICAgICAgICAgICAgICAgICAgICAg ICAgICAgICAgICAgICAgICAgICAgICAgICAgICANCi AgICAgICAgICAgICAgICAgICAgICAgICAgICAgICAgICAgICAgICAgICAgICAgICAgICAgICAgICAgIC AgICAgICAgICAgICAgICAgICAgICAgICAgICAgICAgICAgICAgICANCiAgICAgICAgICAgICAgICAgIC AgICAgICAgICAgICAgICAgICAgICAgICAgICAgICAg ICAgICAgICAgICAgICAgICAgICAgICAgICAgICAgICAgICAgICAgICAgICAgICAgICANCiAgICAgICAg ICAgICAgICAgICAgICAgICAgICAgICAgICAgICAgICAgICAgICAgICAgICAgICAgICAgICAgICAgICAg ICAgICAgICAgICAgICAgICAgICAgICAgICAgICAgIC ANCiAgICAgICAgICAgICAgICAgICAgICAgICAgICAgICAgICAgICAgICAgICAgICAgICAgICAgICAgIC AgICAgICAgICAgICAgICAgICAgICAgICAgICAgICAgICAgICAgICAgICANCiAgICAgICAgICAgICAgIC AgICAgICAgICAgICAgICAgICAgICAgICAgICAgICAg ICAgICAgICAgICAgICAgICAgICAgICAgICAgICAgICAgICAgICAgICAgICAgICAgICAgICANCiAgICAg ICAgICAgICAgICAgICAgICAgICAgICAgICAgICAgICAgICAgICAgICAgICAgICAgICAgICAgICAgICAg ICAgICAgICAgICAgICAgICAgICAgICAgICAgICAgIC AgICANCiAgICAgICAgICAgICAgICAgICAgICAgICAgICAgICAgICAgICAgICAgICAgICAgICAgICAgIC AgICAgICAgICAgICAgICAgICAgICAgICAgICAgICAgICAgICAgICAgICAgICANCjw/sOOdV6pybATqoz K4R0xiRz2JJr8KET7dy9HkJWIrYCrvxjDyVzoRNgDl ONXqStzERas5WIwpZC4XbNEqV7NgU1XsXKfrCT1VJNNqLHSjsFLdGTAoMLLmQcZ4ZWRkQYlhEC3WbKDz VCfrDMBcHFXuHwGgXTLyIFQfCOKdEUEkKCJPOBIkFPThGfYaISosNQ3Wy9JvdLL6FPi+Fm6BPW7wr3Or MMqeOILlOM5gqm1DAZiSVzCzK4TvicQ8ERS3MNEyVy 0CKDJrELUdsSFhXKFvTDNFNuWfH6UxeA52PULLUr1+FMagnxRjGonHOkN0BJOwe5MkRDa4RO7LIOGjCO n3hCScGRnrQ2gfzrywXUH3uD7memjsHxdtY6Nkk6vzSFZQNRBuqn3bgIxkImJaUMCzGF6nLK5dOTMcJH BcGcAxWQUEHH0XNPQqSIHrhGPxKWFiXXAMIQ9JPDuk ZFN3NFQztwDnqQTgSMmdZF8CCDIqrzNySoxpISOOXLu+Hl4RMU5sn6XbHPoyQPTqCR4ndh2FEHgSQwHt G8P8dWYoO6U2OLkmDq9TFLCxHMFdAfZbGMIYHOnlDZ3CZJ4kofQ9FA8FhDPzPPOgIYViwNUwQRf6I28s pSZfHYphJK9OUEN+Fady+Zg3KLDPyOEQeXNUoBwGvBF TUOzFkH4SaF5OVd5AzJ9XxPX63oGlzmgZeZGwcMD0HQC5mHNYtOFQKQM4HyWOyoJ6shcOkNDFhFXJYWq CzE40jlHHwJEEuDSF5JVXaIq2ESCCsQ6JxfyWtcBbhqeAlOHEzAKMYAP3TVAbgvjYzlEAizAvqLG54wZ qwEF4CKe3RVmXmJI1irf4YkTChRb8WEHAlKA9ZGDWd VDOxDYDlLPU4OHKyLgVqPXtvXITfHSThXLV5LDCwLEOoMJ6YOdLsOWAwBuH6LYAxTCJjJXNipt6GRLEy JWFmDMc7PhFoZKThHFGxARzdDVOuQZIrPWP5XUYnOBPnKM3RXiCsYBEpGQPrZYSmTGHwEUUgkj2CEYTc TZPdUNFpKTAwOCOoQGNgMCebNGYmDBN7TjqaZQJmBA IxNN7QOtNwPCOlIMh9ZRZeWTRjRUBcsq3DDYCvNWBuOjf6GVVgFHTzGTRsMKhoTFWuECY2HCK7CTYxNO LjVW4JDrOeOMKpAWS5INtxGSHbYOFanu5JWJOeMGIeTnC6TJQeMEAfPUTaFXjzFBJpMIR9JmrvJDCcLE GoZZ6YRsLjEGQsHNa3CLmxKHNqMGZzpb7HOEIzNEUc FED6IHDhPEBxEHGdKXrdDZLzJOZ8QcG1TBMiWKMsCA0ETsXpMFZdTZg9EqqfJOUtPUPnmj8BCYFzHQDs ESg3NTDrXKNhXMDpGXhrGEYaQOPaKVacCZWeXRIhNX9YNeWzTSAgYfWdFdkxRJIgXTLxrz6UMRZgJPJi LkZgAJFpEWOaJMXgJKssPUPiWOHfCDD2WBVnIKDoZH 0UKxXqFCHzOtT6FNqpYFOwGYJvwi4BNBTiMUNuTaC9WZNpFYIxNPHwUInrYDUvEBHvHovuCEAtVQSrCU 8MNqVpUYLxHhM5OsRnFKBgVDNrpu7WOWSnCXAvQQQtGqVzQWKrUQRlWQldBWWeLYQ4JDv1DBXgOCEzWB 6RDuZfYBMyCrD2KHkyVNDwIXMdrb1LXKEsIZGuVtMx LzMvOISlKZRyTYr0bfSnbODjCFu8GA5RF4DymqDsEjFSKe4Fi548VRKmRWMsFj9KQ8doBy4vZPOdFGGR Ix0AXAt1SNwpL8PrQ2Z4HvFdRodwJLY4BWY9DMN4ISs9LzKtXbY+CEt9YLJ7H8HiDqs8IiW4WJDeRHBu JjF4NdVxDGWfFvN4KE8rGUYVVb0+VSdmqWKcbBwcLIQMQqY6RxH8VHatQCLSLa0K ID Date Data Source [id number] 07/16/2020 04:03:20 PM EDT [facility] Name Value Range Interpretation Code Description Data Laura rce(s) Supporting Document(s) Progress Note [facility] SCKOOj5tHwETLwNu93/BRNjiNDQzl9LkHNhrKLa3MCidSQKvN2LbJVX9pU1dJNO4REjTYiUpAtByGAH0 lbm [file] TTDtOBC7AUXoSCkaLqFfKqM9OdfiExcqVWChKpG+ RR3uOQf+Zo2Ut9UhdeP2rpRoQVj7XDBkLDeiDMUBGf3K ID Date Data Source [id number] 07/16/2020 03:24:33 PM EDT [facility] Name Value Range Interpretation Code Description Data Laura rce(s) Supporting Document(s) Progress Note [facility] HDQWKe9hWhFZSjTe35/YZGcyYDKnc6VmWEhgIRm3KAusRWErL9AiDOM1iR3qBWB7HYyDHxGiCpBkJDA0 lbm [file] AgICAgICAgICAgICAgICAgICAgICAgICAgICAgICAgICAgICAgICAgICAgICAgICAgICAgICAgICAgIC VsQHFvUCDgMLXmOLDzLS3BUMSrBEQeTQZjLBPjDWXx ICAgICAgICAgICAgICAgICAgICAgICAgICAgICAgICAgICAgICAgICAgICAgICAgICAgICAgICAgICAg LKCxHSBzZMSeCQIoIUIiDQRrXUGqZKRbIA5MJMJlILJtNLLgQYHeGRBcURGmZPSgLSFlJICwLNExEFXc ICAgICAgICAgICAgICAgICAgICAgICAgICAgICAgIC WbPSNhNAVbDCNmSZVpPVTaWFPxGNSpSKPbXPZfMGFlRKPnXF3GNUShLFXoZRBtTZZeRNVvTNFoPEPqFP AgICAgICAgICAgICAgICAgICAgICAgICAgICAgICAgICAgICAgICAgICAgICAgICAgICAgICAgICAgIC EbBSVbMKGaLWCyUJFiFPKtGX3UOWIkQULaBXRhWKBm ICAgICAgICAgICAgICAgICAgICAgICAgICAgICAgICAgICAgICAgICAgICAgICAgICAgICAgICAgICAg MMAjJTMeQZHrHFQzMADyZLUgUPKzIISyVGRhFS8EBEVcEIDuTRQqYCIhAAVkBMGyCJYsJPKtMSNnGNFq ICAgICAgICAgICAgICAgICAgICAgICAgICAgICAgIC BxSNOqJTDoABMxSJQbRDJnNLVwDRNrWDBhZBZmALCmPEEmNLPiSI4XVPToIWSuJYNjAAZmJAYpRBLlEP AgICAgICAgICAgICAgICAgICAgICAgICAgICAgICAgICAgICAgICAgICAgICAgICAgICAgICAgICAgIC DsJYGlCFTpRNIgSOUmKEOiVXCsXX2EZIZpRZCfYHMh ICAgICAgICAgICAgICAgICAgICAgICAgICAgICAgICAgICAgICAgICAgICAgICAgICAgICAgICAgICAg CFCiOACtPBMoWWWgDEZlEQGzQVAiHTMtBAJcJHQlCC2TJBXsJGHtKEJnWZXuVYAqLFSsPGPvOHAqGNPc ICAgICAgICAgICAgICAgICAgICAgICAgICAgICAgIC SaOIMiGPMiWNGxNYVyAEUvWHZmLXJkGFVxNZZnHFRkSCRhIGUzEHMpRU4MSBByVDZlRJZdDBPiFNTnWF AgICAgICAgICAgICAgICAgICAgICAgICAgICAgICAgICAgICAgICAgICAgICAgICAgICAgICAgICAgIC BbHHHnEWMoROMaWZZsLXFjRVJaRPPoOK5RGH89jCDq k6J5YKZdGL6tvbf/Ym4UVYbwwcSxgCTqUA1PHiOfTV0yba8YLdDvTL8wgc1HMPeTSnFuD6M0uKNeOZAw ITQXNsFjY22jRUfzCc20QEgoKFDnXuJxQZe7Px8YMzJqI4nvRNSsLkP8FSSqEbQgLLgsQS4Jz6EdtEIw DQo+Kt8JGM3on2LhTGemZEFoEI6kxd9XJZtSTeShA4 TcbfI0ZZN1CSNyDj3EXPLsAMPccIIxEXSiRCMANqLtX6YuyT46NMAHDg8+TBflgtFcYvfSHwZ6RUOsr4 VjLGi4NS4FAAOtJKc2zPZgVDZxB2Ywr2WhJt53CLMtQcevEJctnSzbMBF4yvDoqQnjUb0kJMZtOR5yFB 9gERUfCMGgRgJiFKAOPZ2YMFTbOZWyeGDrYXFfYBXW PF6DURkaHZV3PSUineKurPIdCIsvPZ3JVCQudaMySMPoWNOFFEb+Xt5VTD9pg7RaUXusYcDkMT2izj6Y RZkWWkVcN3Z9gFHnD2F8RInxWc0HQLJaMSNiISDlDXZFPBenSH2OEX8ubgN6LV0UlEUfRBZvLNHnaXIe HDu8J29ekACbHApkGM7EAXS+Fady+Zm6OUIPwIURtXF AlCzKgPVRIQfYiY9CxF0GIr3MwJ4LzJI41bZyjoiJxWQqsMU0OLG8nVVIkJBGQFK8OwWAwqM5libVlEB GpRAIIXrGiH56nyTSeRIQfOSUgUEFjBy5XVLBxT2FxraDggDrnhdFvXSGsZOPPGU4VJAthikZjhCCewV pqJV57eGniRO1VLw3CGjSzCF2zpi6SpWGaGl9KOAMc Te2SRZRpJSIwRKJdMPF3WZZzXhIqXXioVEWyHBIpQAO2SWIkEXTaRS7JLiTkIWUgAFR0EmkqUARvHURr rn5LEJAxFIItYzQ0OFEzHRKmPRPcKWeeFFByCCFyFNT3KEZlPEJiUD8BToMiXGZvNRM5GftvCPKkHSKv to4KREUdYNHyEQd0EeCaVOFgETGbSNjbDCQnCWGbDZ CtLIOvEAXcEY6DRjMqKQMsUBJzBnjwQGQjHVNsoj8FTHDsYYXePiXwMRYlWZAxKLPvKYllCDLeHDS0Am C9LSLvHWUsSH9MYyUyCBGqBOY9MjhwHYYuSWHzce9NTJAxSSHdYZT1PAKiCQEqAGHxPWmpWKPvXNL5IU R6IBZoXXDqUU0DQiVbIZExDFY4LPsuBIGqPOYpni0B KMIrNGFuBsO0NAFjIKTzAKLfXRxyEONaRFI5UjY8CECuWJIbRH9BQnOcXKpwVTXBYne7LIvqS8r5UTIo Fz6GL5Whm5NyVAMwOTJDINcnJJ0irkItXVLqCc3HO4oMExavJLW3Q5LuBIScFQEwZBB7IMurLztmGRG1 XsjmSwP8Ae1gPUC5XuAtFRNeBMDvQVEqXJL8OMHaHl UeCfpuZJN8RebzSdJrQW3UWm4ZHlL8FLE6qTQrAr7ZUkf2FP6QJVXMI7FMCz== ID Date Data Source [id number] 07/21/2020 12:12:44 PM EDT [facility] Service Cmnt XXX-Imp : NoneGram Stn XXX : 3+WBC'S Seen.No organisms seenSpecimen concentrated prior to staining.Microorganism XXX Cult : No growth 5 days Name Value Range Interpretation Code Description Data Laura rce(s) Supporting Document(s) ID Date Data Source [id number] [facility] Interpret[facility] Code Description Data Laura rce(s) Supporting Document(s) Albumin [Mass/volume] in Body fluid 0.8 g/dL [facility] (NOTE)The performance characteristics of this test for this specimen typewere determined by the Department of Pathology at [facility] and approved by the [facility] Department of Health. It has notbeen cleared by the FDA. ID Date Data Source [id number] 07/16/2020 01:40:59 PM EDT [facility] Name Value Range Interpretation Code Description Data Laura rce(s) Supporting Document(s) Color of Body fluid [facility] Appearance of Body fluid [facility] Erythrocytes [#/volume] in Body fluid by Manual count 325 /uL 0 H [facility] Cell count panel - Body fluid 70 /uL <200 [facility] Microscopic observation [Identifier] in Body fluid by Other stain [facility] Cell count and Differential panel - Body fluid [facility] Neutrophils/100 leukocytes in Body fluid by Manual count 1 % < 25 [facility] Monocytes+Macrophages/100 leukocytes in Body fluid by Manual count 73 % [facility] Lymphocytes/100 leukocytes in Body fluid by Manual count 13 % [facility] Other cells [#] in Body fluid by Manual count 13 % [facility] ID Date Data Source [id number] 07/16/2020 08:46:09 AM EDT [facility] Name Value Range Interpretation Code Description Data Laura rce(s) Supporting Document(s) EKG [facility] WZSIRt4xGbXMHpAna0LkNyTxXWRsYF8bjjz6A9Q4tSHpK4ZsnPMoi5ztF0GjC4MfGQVdRGDWDM4PjENu jb2 [file] Luís/scbAA0/vMsr2DPb6uIdeMpgt+SVNpJdw8HU+y1tju5VqgOStRHViDJwLVvaYyhEQQCMXH4lELCH [file] /44p57K4/524///8szZ+4ow13v44d/n+y68/ hk244cicd/z42w+/+mogAjCo14ad5QwbX1A3m20mZ6/+zXdv3/7yn7//5Vdv//Yd8819++auhd955+U3 B71f2yfyhybej/e/+uso127/fv1+kc9/15jK4126/s1Xv/7Vx//43qk1W36/cX/xi5zm6xE+XeTD+/++ n+75x//kp1JN//qbr7/79cdt+rfv3/7pw28/vn34xd fffPvVh1+9t/yn/7iLeL3+8Z9++vVkuWTC7680Swws7rX/+jhGX3mS+i/j+9/8P3y6RSN7ue+fmvyOfP 3NP72a/d37D/6TM70i/k/P9NfN/z+fPZzfgO6j0b//6d9+/5c//vivb//3h5659mj/+MMPf/nLjz/84e /evvjhT7//8Q9v//EkDA6px3/+/Ke3/nP1n+82xmc+ Lxdm5vPhx+eBu3nH3y/9j3/8+b/ogzetbcUa3T/+HahPsDe24it/DXB/sz3g+ak60sUlQxE9u6exfzYb I4O00CmAP3wlwJ6/X1xx8wct7rm4nr30++O//fhunJelPnt7+/Bu6ffu+e2Ht//2jMetdFRc450jc3/8 2aEzY63/Fhb70qo/7p3zd/q73uo91h5xgqGjw8jTl4 Hf/david//j7t7/88B8/xvB909m6I3sdav8ru1iGR1af80j/8lgmK267/Z/+48e//D9/dfN5+mPST0+f9/ 37qyii8K/2j99+9/av//P93n//5z/40IX7XH3HZo+neLB//P7n//j974C/e4mIkV1/kpyyJfYyeH8rtd l+1tePxAzfSyGU3XbPxmdXM/a2n0143bdxQ/y/P/77 X4+c98c27rCzCp10G6+qP++Dr6+3//WXf/nbn/u5AGgskhqPT488aTR+/sP//N0P//77H/70k/8/lh76 +z/99P+f4dLaH/77X//vY8Jv//muT164/mKR+MlPTnt/1cbphXoGRmuCa8ZCiBNj//i7/+tPv//d+x1+ 9jeq0G3+/DkM86t6c86s7vX68j//x3u3+9fP/vp6O5 XPXx9ez2/e/d13/MWmwvj//7vwm6rcMff4V//lH713w4b//0je01x6YbtzWr+1qMI2mS8+vgsSbx+/+P 7cq7n693z0nAG08+0OU206Q/bL89wJE//mN1+//2hrikdxLOahOe4ai554RquickOwsJVsPX6HQI9jx9 EpOlQ2KOQkr3XzIOlrQXy1lZBoRVhulbCtu8Wbllat E2Pqi3JpLdTkFDAiBuTzTkt3UCFmXxJ5oIJxQtMaSPSqR2YiGSJnMeJ1PeAdZEDOBN0ALVJhbfKyMnTj IFI+QpEjNQ4phgjhASPix4TzUNbsGIqxFIWuA8I4iPpwSCKiO6EmbH07HTKeK0KrbsY3VXH2BZMxUjVx TGFzdCAxOSAwIFI+XiOtFV4jvchdVBAaa2BfTTjvOV D5hA6xHJrGHZIXLGcYQHbpHsO0a08uqcMYPXJbZQMcKI0MsnXplYbhwpLesQRuTBL3VeNnCWH8SsRlSK T1XXGRFVYtFZEhLKUhFVDxK9TnrHiwTDvPJWFWWQqDCXwyCnMqc3P9OQKutzFNZNJPFauREPBTB7UGXI S5IWB4JIMpHW3YiHMmVPA9NMgNYGVQZRyBWVnxOiLn q4W3FNAmH3YaPOYgypGmNANMBWiyZfcuCS6loVmburbsS9QooNHnJUSZYTQaBCAePLQwGOBhK5Wdx1L5 L2PwEXgCXNLCQSlPCOtsUgP6j66radUMOVTcRSLgYG4+YQ5ts6HjYk0XRKQtCN1sjyl1RZ2BbNRtHA3N NEhhiwPfF6mqlzXqGcNsTJKLQO1vF8XtkW53LMW+Pm JiFQ1qgpo4ckUyBoNeCLKtTLKbEVVfKJfbWNUpKNGgAPCzEPS0MHX3NSJpQlYvWCPkPcU3LbJeASUePV IgnnADVJTbQFK9MoQ8CSQeAMHyDRLuGCekIXGyRYZaGER1UXLkLVTdRQ3tHtIuIWIiGLOgYVLuIaY1Li UgZiAKMDAwMDAwMDAxNiAwMDAwMCBuIAowMDAwMDAw AGs7JZVnONWgXC1oYiEqSGElEGZhCJNxOFTsWMGkjcJDBQNsOJQuOPD7RWYyFUQpGFRaQFdjKQGcAIFu WCF0DCGeVCJtCC3yZaLgKCZxWVD9RiStQNVrNYDsfkSOYUOpCBYzNOF7SAYvBDIbTZVzTVzlVKXkDVDg YmV7RUClNVAbWJ1xElHuISLuUEL5MIYtBFRbRCKjos TBRKEiVTRvAWv4XtDwDHZnOPUeEMgoPNAdEZShIOojNEHqLLAwOA2aZcUiHBKyQCPcLSTpYAHhMDZysf CVEAQsZQRhLIM8VzYhSSWkCMCoDHfhEEGqWENnSFN5MXOyKCBsQQ8uEkAjFRVhQaRgRRtbCINqLIPzfn AKMDAwMDAwMTYwOSAwMDAwMCBuIAowMDAwMDAxNzM0 REZpWWIuIT5uYeLdRYThATP9TWJsWTMlWHOzyaOAOPIeIXFhMQMpIOP8JRSzUTAfOOs7rvNlwZYhKgt1 Gx1XzUgqTAT9On0KqeYjNZLrCWZQMz2Lj864PMRgJOLKIfe+SjjioLVheZtkRXVOGdS4OzyZEGKNO3Q= ID Date Data Source [id number] 07/16/2020 08:45:48 AM EDT [facility] Name Value Range Interpretation Code Description Data Laura rce(s) Supporting Document(s) [facility] WQGAUb4bTsFIKxBpc1EyZuUlZIVoPU0cqqu2V2L4fBDhF7EhaNXlx7heU9CeM1GgJNAbSCJDTD7ZnCGn jb2 [file] cswuhsv7DEr7ekpfhwh4UJp1kwnyvqr0CMe9zycfzfg1OUo2jmluu6h+XMn0phsub8c+JMw9uclho9a+ AUe6jlcxt9v+IPl5bvmuwjdrTRV9qilbycoaLJX4rp 9FqWldDK9JwPdAILIcGP6LrWyNNHNtXH5iiHxUKFTsUI8fiAorVDEWbwuTbVsYf0CSi2nhl8USsxiL4Y PTsoV6CBKorIOOQPJIYJ7OETySK+tbxB6j5yufxGe5lddvczrupc3gna4jl8bpy7Hx0mAm1O97iHp/a4 IsQaV2KFl04b73Jki8p9RMmmsU8ZlHffQ3VsQxzEJI sDwDRI5aJvyIT0DTjtib13hY5ULqRra4g4+FeuG92Vx7/s/BH9vv5r11uI3YPsLl+telescope maintenance+pPwtuZG83vM [file] +sexSfzBu12w0461w33bwQZa4ckIy3345vPqR/q6Z667inHr+n50aa9+ldkOzqm++Ae00194+6t/+bulldogger L/+Qc13c95huC8981LfbxMxBbvq37u8efdpc8vOcd/ r62y8//Qs5jt2IF1g45R5/9fGrt8++/vKbD99+/Pztn7/66Hf7l2/949vX//WBa9yqGm0lg4QhND95/r dhakwAl66t//BHk2bRopZuh0/8+E5a4854d1n/+erz/+KXL/fg9cvP/vynf//9X/74w7+9/Y///fbb3/ /hD9//5S8/fP+Hv3v7/Ps//q8IN8t991+T+Ne/ffvz q92n2sa/he5xyvNp/f/tw5d/ZdKzqejcUfvjH3/+WnszAulVaam0f17BMi9pVP6+r1/9H4Dnq+rF632l f8/savrbunl02pjthIz1eAGHMJ/sGogv9755pk0UYUk89hTGvm/8+w/nuxvU4iwbqu0+/fG/f/jq828/ iS1w824//vELh23Q4nAmA6hJq/g6kJe5ua3lid3z9H F/+G7FyTEmJDdaSbs/6rm//eFP//n3b3/5/j9/+FHt76+/n4cF9wcfa5hAA5qBoXoq5Uw7jznmu//Tf/ 7wl//nry4+q79N+rXr14gg90q+WvuN/bZ532802/96v/bf//lPP63+nGT7MyHGiWO833lf/9On3wF/f5 lg7OJ01+8e+83wv5elAn7+ecY2ibkty6qDPsjgwh+9 vKd29ozk/uzT2/f/7w//0xnNxlKojm9z8e5+48YM4qk8X6/22//+y7/+7U+Ovm/Dl9//4Ue3d/8I/ez7 //W77//j99//6Se/qu034Qs/+ztph9jagw1fO/13t33Zo/3zn//4i/fSEoFck2za/fWff/eLxSfurJBJ LoEX/umH3/1ff/i7306o7MpoD30+4cOvf/31Vz85+j B35NH/8Z/ltp9warGY0ij+uQyi079++fGrT9/nkUQa8l6/yOuLRt+8xtJvvv+jO3cZ55///P0HIvlq1a iU117Gp5zvlX56EaFuJo7+4C7OwP6Vpmq37Z89245/fvv+1D9/Wf552A4Ekc21DIP4xmQP5cd1/wA5qE eoCiQyNYB2wmAfsMrgecKnXcwIZIurRJKsSdz5IZ7V xTQxPMQxK0Y9MPRwud5qAMRhLLGhiAMeDyDwVOVPYT2ZiZRlXF0AVDo4DSAnJIDvKpUbBCAnudR7WGLq FDBfTLJqN4KfukKtaDOgUEWcEr2+JY2me6WkKxMiDAQjIxi7TX9DnPTbDU4PdNVpfG2snhHwS907fgYc ROEaEsxow1FkMCqsIPPGVH1APTY0IYZ3KIDuIe1+ZW 2kp4UyEzZwGTCmFjc0AS5OeUNrp4XcQI9XQ6ScITAuIQNXMSB5u3NbWDRnpdqyalqdP1PnNOX2oP0sFT E9DTCjQXjlYWZsFEVqAYL8CPGlSAqgNATtRPXzWEBuXNOaVKg5yCChCO3DD7JeKAIbAVNUBPYvmeGyXh 8eGQJDV5oLIEJrKCTUTRHtLtE4CMb0KeiaF7G2Ogow F1ThEC5BU3QsGOHlBHZDMAVfsqViHM0AmvBzsZ5wHPoFDCQJKJcVIHiwTdI0t91lkvKMOUVoBHHgJZza DAZqHRUfCGLdPSDtYOFaKGLwOVIbNK2IS3AqLLJkDKJEMFG0k5FuCTJgpvzyrzdpWe8jxxGvMij+Pgox MZCdy9BrGYcxL9E9cTLrQ3KxE1DuAF1RgWSoKCcnBZ VwSSUnNJNmM085ooSmPL1+OS0kg0XqBfrpSNRQSDTtPPEaQRDsQOR6HmTeDYOdTBGmAVDoOoR2RbMyJp HFICRzSAU9HwVnEqCePULtCIHoSEvsKISmUVSoYsUoXCFkTEIjBM8tNkNxERBwBsBsCmPaXPBcADTrcj KDIMAyTRUxQDUqBWW8YKOkGNZrNWtcGIGqBHKfROR6 SJVjIXTyCE5hCoRcHSUmFPMeEwjdPSGrBFPtawGWFIUuZUCvXST8NgOwBLCfMZXdIZoxSOCpDVTiLlf3 TIDdLDXvAO6sMjUrJBFiJFJ8IKqxWTIaYFTbssRBVHLdPDFsHVAdJuXaYCRzKRFzQNbzTUGkCTKkXzNs EXDoDIXvUP7lPhViKIWjOFR6MZJrYMPxYEJksqPLBU HbAGPgUZy1GKGbFZTfTJMrLJmeGEClXYPuGOE7YUIlYVYfPE8cPbKkMOTvACXsIWGwFOHuRRQituDWBA QfXDCsOZL2BKTyPDJmEOCsKHzuDPCcKRHyNgd0YGFcJYZyJT7kEjGbBYKiHTO9VDBxQAWuKQUptoRNQA BqTGQ8HkPvRvNoZDNtWVOyZHhpWCUfNMHtZxW1LQWf HLIzHC7hJmJkEPYmJMJ1CuBmEVFbCQXuycNWAEJcNQEmCHC3RbZpHHCtRVUpNEfbYMKiIEXqBOIpGDL3 SIB7TMYlVaFsDWrxBGVUKYqQZ4FdcyGnJjAGE1bnIo3jVhPjJAVAK8Ero8JeSDDcAVSUZk9+FdC9END9 vYWiIic4OmP2UdebUGBLIh== ID Date Data Source [id number] 07/16/2020 08:45:34 AM EDT [facility] Name Value Range Interpretation Code Description Data Laura rce(s) Supporting Document(s) [facility] MLYPCy2nOeKXExDkg6LoJwTzJYBmAK4zlmv0N6C2oIVmK0UvgRRmb4vfL2BhS5FhCAGtCTRNDF3FiMEi jb2 [file] ID Date Data Source [id number] 07/16/2020 05:18:27 AM EDT [facility] Name Value Range Interpretation Code Description Data Laura rce(s) Supporting Document(s) Leukocytes [#/volume] in Blood by Automated count 4.8 10*3/uL 4-10 [facility] Erythrocytes [#/volume] in Blood by Automated count 3.11 10*6/uL 4.6- 6.1 L [facility] Hemoglobin [Mass/volume] in Blood 9.8 g/dL 13.5-18 L [facility] Hematocrit [Volume Fraction] of Blood by Automated count 29.4 % 4 1-53 L [facility] Erythrocyte mean corpuscular volume [Entitic volume] by Auto mated count 94.7 fL 80-96 [facility] Erythrocyte mean corpuscular hemoglobin [Entitic mass] by Automated count 31.5 pg 27-33 [facility] Erythrocyte mean corpuscular hemoglobin concentration [Mass/volume] by [facility] 33.2 g/dL [facility].0[facility] width [Ratio] by Automated count 15.4 % 11.5-14.5 H [facility] Platelets [#/volume] in Blood by Automated count 51 10*3/uL 150-400 L [facility] Differential cell count method - Blood [facility] Neutrophils/100 leukocytes in Blood by Automated count 69 % [facility] Lymphocytes/100 leukocytes in Blood by Automated count 11 % [facility] Monocytes/100 leukocytes in Blood by Automated count 15 % [facility] Eosinophils/100 leukocytes in Blood by Automated count 4 % [facility] Basophils/100 leukocytes in Blood by Automated count 1 % [facility] Neutrophils [#/volume] in Blood by Automated count 3.35 10*3/uL 1.8-7 .0 [facility] Lymphocytes [#/volume] in Blood by Automated count 0.51 10*3/uL 1.2-4 .0 L [facility] Monocytes [#/volume] in Blood by Automated count 0.71 10*3/uL 0-0.8 [facility] Eosinophils [#/volume] in Blood by Automated count 0.20 10*3/uL 0-0.5 [facility] Basophils [#/volume] in Blood by Automated count 0.04 10*3/uL 0-0.2 [facility] Nucleated erythrocytes/100 leukocytes [Ratio] in Blood by Automated count 0 /100{WBCs} 0-0 [facility] ID Date Data Source [id number] 07/16/2020 05:38:51 AM EDT [facility] Name Value Range Interpretation Code Description Data Laura rce(s) Supporting Document(s) Albumin [Mass/volume] in Serum or Plasma by Bromocresol green (BCG) dye binding method 2.7 g/dL 3.5-5.2 [facility] Bilirubin.total [Mass/volume] in Serum or Plasma 1.7 mg/dL <1.2 H [facility] Calcium [Mass/volume] in Serum or Plasma 8.8 mg/dL 8.6-10.0 [facility] Chloride [Moles/volume] in Serum or Plasma 103 mmol/L 98-107 [facility] Creatinine [Mass/volume] in Serum or Plasma 1.23 mg/dL 0.70-1.20 [facility] Glucose [Mass/volume] in Serum or Plasma 148 mg/dL 70-140 [facility] Alkaline phosphatase [Enzymatic activity/volume] in Serum or Plasma 130 U/L 40-129 [facility] Potassium [Moles/volume] in Serum or Plasma 3.9 mmol/L 3.4-5.1 [facility] Protein [Mass/volume] in Serum or Plasma 6.4 g/dL 6.4-8.3 [facility] Sodium [Moles/volume] in Serum or Plasma 133 mmol/L 136-145 L [facility] Aspartate aminotransferase [Enzymatic activity/volume] in Serum or Plasma 28 U/L <40 [facility] Urea nitrogen [Mass/volume] in Serum or Plasma 27 mg/dL 6-20 [facility] Osmolality of Serum or Plasma by calculation 283 mosm/kg 275-300 [facility] Creatinine/Urea nitrogen [Mass Ratio] in Serum or Plasma 22 [facility] Bicarbonate [Moles/volume] in Serum 22 mmol/L 22-29 [facility] Alanine aminotransferase [Enzymatic activity/volume] in Seru m or Plasma 15 U/L <41 [facility] Anion gap 3 in Serum or Plasma 7 mmol/L 8-15 L [facility] Glomerular filtration rate/1.73 sq M pre dicted among non-blacks [Volume Rate/Area] in Serum or Plasma by Creatinine-based formula (MDRD) 63 mL/min/1.73m2 >60 [facility] Glomerular filtration rate/1.73 sq M pre dicted among blacks [Volume Rate/Area] in Serum or Plasma by Creatinine-based formula (MDRD) 73 mL/min/1.73m2 >60 [facility] ID Date Data Source [id number] 07/16/2020 05:38:51 AM T [facility] Name Value Range Interpretation Code Description Data Laura rce(s) Supporting Document(s) Magnesium [Mass/volume] in Serum or Plasma 1.8 mg/dL 1.6-2.6 [facility] ID Date Data Source [id number] 07/16/2020 05:38:51 AM [facility] Name Value Range Interpretation Code Description Data Laura rce(s) Supporting Document(s) Phosphate [Mass/volume] in Serum or Plasma 3.7 mg/dL 2.5-4.5 [facility] ID Date Data Source [id number] 07/15/2020 07:05:00 PM EDT [facility] Patient: ADDISON ZUÑIGA [facility]ation [facility] or[facility], [facility].VisitID: [id number] [place] [address] [phone], MRegistration Date/Time: 07/14/2020 15:57 Weight:90.7 kg (S). Height/Length:62 inches (S). BMI:36.6 (Electronically signed by Lola Avila M.D. 07/14/2020 21:46) Weight:90.7 kg (S). Height/Length:62 inches (S). BMI:36.6 PAST HISTORYProblems:Spinal Fracture [Active].Back Pain [Chronic].Thrombocytopenia [Chronic].Cirrhosis [Chronic].Gastroesophageal Reflux Disease [Chronic].Hypertension [Chronic].Anemia [Chronic].Ascites [Intermittent]. Additional Surgeries:Paracentesis x2. Medications:Pantoprazole Sodium Oral (Tablet Delayed Release 40 mg), daily, last dose 07/14/2020.Furosemide Oral 20 mg, daily, last dose 07/14/2020.Spironolactone Oral 25 mg, daily, last dose 07/14/2020.Carvedilol Oral (Tablet 6.25 mg), 2x a day, last dose 07/14/2020. Allergies:No Known Drug Allergy. FAMILY HISTORYMother: Colon Cancer, Mother is alive. Brother(s): Hypertension. (Electronically signed by Anderson Moreno 07/15/2020 19:01) Name Value Range Interpretation Code Description Data Laura rce(s) Supporting Document(s) ID Date Data Source [id number] 07/15/2020 08:37:45 AM [facility] Name Value Range Interpretation Code Description Data Laura rce(s) Supporting Document(s) Ammonia [Moles/volume] in Plasma 77 umol/L 16-60 H [facility] ID Date Data Source [id number] 07/15/2020 06:42:39 AM T [facility] Name Value Range Interpretation Code Description Data Laura rce(s) Supporting Document(s) Progress Note [facility] [id number] [facility] [file] [id number] ID Date Data Source [id number] 07/15/2020 04:29:10 AM EDT [facility] Name Value Range Interpretation Code Description Data Laura rce(s) Supporting Document(s) Color of Urine [facility] Clarity of Urine [facility] Specific gravity of Urine by Refractometry automated 1.016 1.003 -1.030 [facility] pH of Urine by Automated test strip 5.0 5.0-8.0 [facility] Protein [Mass/volume] in Urine by Automated test strip Neg [facility] Glucose [Mass/volume] in Urine by Automated test strip Neg [facility] Ketones [Mass/volume] in Urine by Automated test strip Neg [facility] Bilirubin.total [Presence] in Urine by Automated test strip Negative [facility] Hemoglobin [Presence] in Urine by Automated test strip Neg [facility] Leukocyte esterase [Presence] in Urine by Automated test strip Negative [facility] Nitrite [Presence] in Urine by Automated test strip Negati [facility] Leukocytes [#/area] in Urine sediment by Automated count 1 /HPF 0 -5 [facility] Erythrocytes [#/area] in Urine sediment by Automated count 0-3 [facility] Epithelial cells.squamous [#/area] in Urine sediment by Automate d count None [facility] Hyaline casts [#/area] in Urine sediment by Microscopy low p ower field 9 /LPF None [facility] ID Date Data Source [id number] 07/15/2020 03:50:00 AM EDT [facility] Name Value Range Interpretation Code Description Data Laura rce(s) Supporting Document(s) SARS-CoV-2 RNA 2019 nCoV Real-Time RT-PCR: NOT DETECTED [facility] This lab was ordered by [facility] and reported by [facility]. ID Date Data Source [id number] 07/15/2020 04:22:05 AM EDT [facility] Name Value Range Interpretation Code Description Data Laura rce(s) Supporting Document(s) Leukocytes [#/volume] in Blood by Automated count 5.0 10*3/uL 4-10 [facility] Erythrocytes [#/volume] in Blood by Automated count 3.06 10*6/uL 4.6- 6.1 L [facility] Hemoglobin [Mass/volume] in Blood 9.8 g/dL 13.5-18 L [facility] Hematocrit [Volume Fraction] of Blood by Automated count 28.7 % 4 1-53 L [facility] Erythrocyte mean corpuscular volume [Entitic volume] by Auto mated count 93.8 fL 80-96 [facility] Erythrocyte mean corpuscular hemoglobin [Entitic mass] by Automated count 32.0 pg 27-33 [facility] Erythrocyte mean corpuscular hemoglobin concentration [Mass/volume] by Automated count 34.2 g/dL 32.0-[facility] width [Ratio] by Automated count 15.6 % 11.5-14.5 H [facility] Platelets [#/volume] in Blood by Automated count 55 10*3/uL 150-400 L [facility] Differential cell count method - Blood [facility] Neutrophils/100 leukocytes in Blood by Automated count 66 % [facility] Lymphocytes/100 leukocytes in Blood by Automated count 13 % [facility] Monocytes/100 leukocytes in Blood by Automated count 15 % [facility] Eosinophils/100 leukocytes in Blood by Automated count 5 % [facility] Basophils/100 leukocytes in Blood by Automated count 1 % [facility] Neutrophils [#/volume] in Blood by Automated count 3.31 10*3/uL 1.8-7 .0 [facility] Lymphocytes [#/volume] in Blood by Automated count 0.66 10*3/uL 1.2-4 .0 L [facility] Monocytes [#/volume] in Blood by Automated count 0.76 10*3/uL 0-0.8 [facility] Eosinophils [#/volume] in Blood by Automated count 0.25 10*3/uL 0-0.5 [facility] Basophils [#/volume] in Blood by Automated count 0.06 10*3/uL 0-0.2 [facility] Nucleated erythrocytes/100 leukocytes [Ratio] in Blood by Automated count 0 /100{WBCs} 0-0 [facility] ID Date Data Source [id number] 07/15/2020 04:36:05 AM [facility] Name Value Range Interpretation Code Description Data Laura rce(s) Supporting Document(s) Prothrombin time (PT) 17.1 s 12.5-14.9 H [facility] INR in Platelet poor plasma by Coagulation assay 1.37 [facility] Routine intensity oral anticoagulation I NR is typically 2.0-3.0. Target INR must be clinically individualized. ID Date Data Source [id number]/15/2020 04:45:24 AM [facility] Value Range Interpretation Code Description Data Laura rce(s) Supporting Document(s) Albumin [Mass/volume] in Serum or Plasma by Bromocresol green (BCG) dye binding method 3.0 g/dL 3.5-5.2 [facility] Bilirubin.total [Mass/volume] in Serum or Plasma 1.5 mg/dL <1.2 H [facility] Bilirubin.direct [Mass/volume] in Serum or Plasma 0.8 mg/dL <0.3 H [facility] Alkaline phosphatase [Enzymatic activity/volume] in Serum or Plasma 146 U/L 40-129 H [facility] Aspartate aminotransferase [Enzymatic activity/volume] in Serum or Plasma 27 U/L <40 [facility] Alanine aminotransferase [Enzymatic activity/volume] in Seru m or Plasma 17 U/L <41 [facility] Protein [Mass/volume] in Serum or Plasma 6.6 g/dL 6.4-8.3 [facility] ID Date Data Source [id number] 07/15/2020 04:45:24 AM [facility] Value Range Interpretation Code Description Data Laura rce(s) Supporting Document(s) Bicarbonate [Moles/volume] in Serum 23 mmol/L 22-29 [facility] Chloride [Moles/volume] in Serum or Plasma 102 mmol/L 98-107 [facility] Creatinine [Mass/volume] in Serum or Plasma 1.43 mg/dL 0.70-1.20 H [facility] Glucose [Mass/volume] in Serum or Plasma 143 mg/dL 70-140 H [facility] Potassium [Moles/volume] in Serum or Plasma 4.1 mmol/L 3.4-5.1 [facility] Sodium [Moles/volume] in Serum or Plasma 133 mmol/L 136-145 L [facility] Urea nitrogen [Mass/volume] in Serum or Plasma 29 mg/dL 6-20 H [facility] Anion gap 3 in Serum or Plasma 8 mmol/L 8-15 [facility] Osmolality of Serum or Plasma by calculation 284 mosm/kg 275-300 [facility] Creatinine/Urea nitrogen [Mass Ratio] in Serum or Plasma 20 [facility] Calcium [Mass/volume] in Serum or Plasma 8.7 mg/dL 8.6-10.0 [facility] Glomerular filtration rate/1.73 sq M pre dicted among non-blacks [Volume Rate/Area] in Serum or Plasma by Creatinine-based formula (MDRD) 52 mL/min/1.73m2 >60 L [facility] Glomerular filtration rate/1.73 sq M pre dicted among blacks [Volume Rate/Area] in Serum or Plasma by Creatinine-based formula (MDRD) 60 mL/min/1.73m2 >60 L [facility] ID Date Data Source [id number]/15/2020 06:25:42 AM [facility] Value Range Interpretation Code Description Data Laura rce(s) Supporting Document(s) Magnesium [Mass/volume] in Serum or Plasma 1.9 mg/dL 1.6-2.6 [facility] ID Date Data Source [id number] 07/15/2020 06:25:42 AM [facility] Value Range Interpretation Code Description Data Laura rce(s) Supporting Document(s) Phosphate [Mass/volume] in Serum or Plasma 4.0 mg/dL 2.5-4.5 [facility] ID Date Data Source [id number] 07/15/2020 07:49:04 AM [facility] Value Range Interpretation Code Description Data Laura rce(s) Supporting Document(s) aPTT in Platelet poor plasma by Coagulation assay 30.1 s 24.0-33. 0 [facility] ID Date Data Source [id number] 07/15/2020 05:12:05 AM EDT [facility] Name Value Range Interpretation Code Description Data Laura rce(s) Supporting Document(s) Specimen source [Identifier] of Unspecified specimen [facility] SARS-CoV-2 RNA 2019 nCoV Real-Time RT-PCR: NOT DETECTED [facility] Assay Performed [facility] Patients first test for condition [facility] Patient employed in healthcare setting [facility] Patient has symptoms related to condition [facility] When did you start to experience these symptoms [Date and time] [Phen X] [facility] Patient was hospitalized because of this condition [facility] patient was admitted to ICU for condition [facility] Patient resides in a congregate care setting [facility] status [facility] ID Date Data Source [id number] 07/15/2020 05:11:17 AM EDT [facility] Service Cmnt XXX-Imp : NoneRespiratory P CR Panel : PCR ResultsMicroorganism XXX Cult : See Labs Tab for 2019 nCoV RT-PCR resultsHAdV DNA QI BRYCE+non-probe : Not DetectedHCoV 229ERNA Nph QI BRYCE+non-probe : Not DetectedHCoV [id number] Nph QI BRYCE+non-probe : Not RbpilqdvUKpHNX25 RNA Nph QI BRYCE+non-probe : Not [id number] RNA Upper resp QI BRYCE+probe : Not DetectedhMPV RNA Nph QINAA+non-probe : Not DetectedRV+EV RNA Nph QI BRYCE+non-probe : Not DetectedFLUAV RNA Nph QI BRYCE+ non-probe : Not DetectedFLUBV RNA Nph QI BRYCE+non-probe : Not DetectedHPIV1 RNA NphQINAA+non-probe : Not DetectedHPIV2 RNA Nph QINAA+non-probe : Not DetectedHPVI3 RNA Nph BRYCE+non-probe : Not DetectedHPIV4 RNA Nph Q BRYCE+non-probe : Not DetectedRSV RNA Nph Q BRYCE+non-probe : Not DetectedB pert.PT PrmtNph Q BRYCE+non-probe : Not DetectedC pneum DNA Nph Q BRYCE+non-probe : Not DetectedM pneum DNA Nph Q BRYCE+non-probe : Not DetectedB hzbbiJH725 DNA Nph BRYCE+non-probe : Not Detected Name Value Range Interpretation Code Description Data Laura rce(s) Supporting Document(s) ID Date Data Source [id number] 07/17/2020 04:31:00 PM EDT [facility] CYTOPATHOLOGY REPORTName: ADDISON ZUÑIGAMRN: [id number] Number: [id number] Date: 07/15/2020 00:00Received Date: 07/16/2020 12:19Physician(s): BAUDILIO LOPEZ MD CREAMER, TIMOTHY M, MD Copy To:ROME HERNANDEZ MDGOODMAN, ALEXANDRA, MDSpecimen(s) ReceivedA: ASCITIC FLUIDClinical History:Ascites. See [id number] FLUID: NO EVIDENCE OF MALIGNANCYComment/ld/calReviewing Cytotech: ANANYA Burroughs (ASCP)Electronically Signed By Lakshmi Galloway M.D. 07/17/2020 16:31:36Microscopic DescriptionThe specimen is composed of benign reactive mesothelial cells andmacrophages./ldGross Zehrbqdylvw682 ml clear yellow fluid received. Specimen processed bycytocentrifugation: 1 cytospin slide prepared for Pap stain and 1 cytospinslide prepared for Diff Quik stain. This report may include one or more immunohistochemical stain results thatuse analyte specific reagents. All positive and negative controls havebeen reviewed by the attending pathologist and are satisfactory. The testswere developed and their performance characteristics determined by [facility] Pathololgy department. They have not been cleared or approved by [place] Food and Drug Administration. The FDA has determined that suchclearance or approval is not necessary. Name Value Range Interpretation Code Description Data Laura rce(s) Supporting Document(s) ID Date Data Source [id number] 07/14/2020 08:00:00 PM EDT [facility] Name Value Range Interpretation Code Description Data Laura rce(s) Supporting Document(s) COVID-19 NEGATIVE [facility] This lab was ordered by [facility] and reported by [facility]. ID Date Data Source [id number] 07/14/2020 08:18:00 [facility] [id number] Name Value Range Interpretation Code Description Data Laura rce(s) Supporting Document(s) COVID-19 NEGATIVE NEGATIVE [facility] Negative results should be treated as pr esumptive and, ifinconsistent with clinical signs and symptoms or necessaryfor patient management, should be tested with differentauthorized or cleared molecular tests.Negative results do not preclude SARS-CoV-2 infection andshould not be used as the sole basis for patient managementdecisions.This is a rapid molecular isothermal nucleic acidamplification technology (NAAT) in vitro diagnostic testutilizing a loop mediated isothermal amplification (LAMP)test with nicking endonuclease amplification reaction(NEAR) intended for the qualitative detection of nucleica amira from the SARS-CoV-2 viral RNA in direct nasal,nasopharyngeal or throat swabs from individuals who aresuspected of COVID-19.Results are for the indentification of SARS-CoV-2 RNA. LhpANCP-YeX-7 RNA is generally detectable in respiratorysamples during the actue phase of infection. ID Date Data Source [id number] 07/14/2020 06:42:00 PM EDT [facility] l DATE OF EXAMINATION: 07/14/2020 17:56 EDT ABD/PEL NO CONTRAST HISTORY: Abdominal swelling, ascites Comparison:06/11/2020 TECHNIQUE: This CT exam was performed using the following dose reductiontechniques: automated exposure control, adjustment of mA and/or kV according tothe patient's size, and use of iterative reconstruction technique. Standard contiguous axial spiral imaging was obtained from the dome of thediaphragms through the symphysis pubis without oral contrast and withoutintravenous contrast administration and with coronal reformatting. FINDINGS:Lower thorax: Lung bases are clear. ABDOMEN:Liver: The liver is cirrhotic. Gallbladder and bile ducts: Gallbladder not well visualized. Pancreas: Pancreas is atrophic. Spleen: The spleen is large measuring approximately 16 cm. Adrenals: No adrenal masses. Kidneys and ureters: No hydronephrosis or stone Stomach and bowel: No dilated bowel. No evidence of obstruction. Significantdiverticular change of the sigmoid colon with areas of thickening. Appendix: No evidence of appendicitis Peritoneum/retroperitoneum:There is significant free fluid in the abdomen andpelvis similar to the previous studies. Lymph nodes:No adenopathy Soft tissues:There is a fluid containing umbilical hernia similar to theprevious study. There is a large fluid containing left inguinal hernia andhydrocele. This is also similar to the previous study. There is a fat-containingright inguinal hernia. Bones:No bony lytic or blastic lesions Vessels:Unremarkable PELVIS:Bladder: The bladder is minimally distended and otherwise unremarkable. Reproductive: Unremarkable as visualized IMPRESSION: 1. Hepatic cirrhosis with portal venous hypertension, splenomegaly.2. Marked ascites similar to the previous study.3. Fluid containing umbilical and left inguinal hernias, similar to the previousstudy.4. Extensive diverticular change of the sigmoid colon. Recommend correlationwith colonoscopy to exclude underlying mass. Electronically signed in [id number] by: Aníbal John M.D. 07/14/2020 18:37 EDT Name Value Range Interpretation Code Description Data Laura rce(s) Supporting Document(s) ID Date Data Source [id number] 07/14/2020 06:19:00 PM EDT [facility] spital TSYSORDER [id number] Name Value Range Interpretation Code Description Data Laura rce(s) Supporting Document(s) URINE RBC 1-3 /hpf 0-3 [facility] URINE WBC 1-3 /hpf 0-5 [facility] URINE EPITHELIAL CELLS 1+ /hpf 0 [facility]spital URINE BACTERIA 1+ NONE SEEN H [facility] URINE HYALINE CAST 3-6 /LPF 0 [facility] ID Date Data Source [id number] 07/14/2020 06:12:00 PM EDT [facility] ital TSYSORDER [id number] Name Value Range Interpretation Code Description Data Laura rce(s) Supporting Document(s) URINE COLOR. [facility] URINE APPEARANCE CLEAR [facility] l URINE GLUCOSE (UA) NEGATIVE mg/dL NEGATIVE [facility] URINE BILIRUBIN NEGATIVE NEGATIVE [facility] URINE KETONE NEGATIVE mg/dL NEGATIVE [facility] al SPECIFIC GRAVITY,URINE 1.020 1.005-1.030 [facility] URINE BLOOD TRACE NEGATIVE H [facility] PH,URINE 5.5 5.0-9.0 [facility] URINE PROTEIN NEGATIVE mg/dL NEGATIVE [facility] URINE UROBILINOGEN 0.2 mg/dL 0-1 [facility] URINE NITRATE NEGATIVE NEGATIVE [facility] URINE LEUKOCYTE ESTERASE NEGATIVE NEGATIVE [facility] ID Date Data Source [id number] 07/14/2020 06:11:00 PM EDT [facility] TSYSORDER [id number] Name Value Range Interpretation Code Description Data Laura rce(s) Supporting Document(s) MAGNESIUM 1.9 mg/dL 1.8-2.4 [facility] ID Date Data Source [id number] 07/14/2020 06:11:00 PM EDT [facility] TSYSORDER [id number] Name Value Range Interpretation Code Description Data Laura rce(s) Supporting Document(s) LIPASE 151 U/L 73-393 [facility] ID Date Data Source [id number] 07/14/2020 06:11:00 PM EDT [facility] TSYSORDER [id number] Name Value Range Interpretation Code Description Data Laura rce(s) Supporting Document(s) GLUCOSE 144 mg/dL 74-106 H [facility] BLOOD UREA NITROGEN 29 mg/dL 7-18 H [facility] ital CREATININE 1.67 mg/dL 0.7-1.3 H [facility] SODIUM 136 mmol/L 136-145 [facility] POTASSIUM 4.4 mmol/L 3.5-5.1 [facility] CHLORIDE 102 mmol/L 98-107 [facility] CO2 25 mmol/L 21-32 [facility] CALCIUM 8.7 mg/dL 8.5-10.1 [facility] ANION GAP 9.0 mmol/L 5-12 [facility] GLOMERULAR FILTRATION RATE 42 mL/min [facility] GFR IS CALCULATED IN mL/min/1.73m2 HEIDE L FUNCTION: >90MILDLY DECREASED: 60-89MILDY TO MODERATELY DECREASED: 45-59 MODERATELY TO SEVERELY DECREASED: 30-44SEVERELY DECREASED: 15-29RENAL FAILURE: <15 AST 31 U/L 15-37 [facility] ALT 30 U/L 12-78 [facility] ALKALINE PHOSPHATASE 185 U/L 46-116 H [facility] pital TOTAL BILIRUBIN 1.3 mg/dL 0.2-1.0 H [facility] TOTAL PROTEIN 7.1 g/dl 6.4-8.2 [facility] ALBUMIN 2.8 gm/dL 3.4-5.0 L [facility] ID Date Data Source [id number] 07/14/2020 06:09:00 PM EDT [facility] TSYSORDER [id number] Name Value Range Interpretation Code Description Data Laura rce(s) Supporting Document(s) PARTIAL THROMBOPLASTIN TIME 24.6 SECONDS 21.2-27.3 [facility] ID Date Data Source [id number] 07/14/2020 06:09:00 PM EDT [facility] l TSYSORDER [id number] Name Value Range Interpretation Code Description Data Laura rce(s) Supporting Document(s) PROTHROMBIN TIME (PATIENT) 11.7 SECONDS 9.1-11.6 H [facility] INR 1.13 0.87-1.06 H [facility] ID Date Data Source [id number] 07/14/2020 05:57:00 PM EDT [facility] TSYSORDER [id number] Name Value Range Interpretation Code Description Data Laura rce(s) Supporting Document(s) WHITE BLOOD COUNT 6.7 K/mm3 4.0-10.0 [facility]LOOD [facility] 2.94 M/mm3 4.50-6.00 [facility] HEMOGLOBIN 9.5 gm/dL 14.0-18.0 L [facility] HEMATOCRIT 27.1 % 42.0-54.0 L [facility] MEAN CELL VOLUME 92.2 fl 80-96 [facility] MEAN CORPUSCULAR HEMOGLOBIN 32.3 pg 27.0-31.0 H [facility] MEAN CORPUSCULAR HGB CONC 35.1 g/dl 32.0-36.0 [facility] RED CELL DISTRIBUTION WIDTH 14.7 % 10.0-14.5 H [facility] PLATELET COUNT 61 K/mm3 172-450 L [facility] MEAN PLATELET VOLUME 9.8 fl 9.0-13.0 [facility] pital GRAN % 71.8 % 50-80.0 [facility] IG% 0.4 % 0.0-0.2 H [facility] LYMPH % 10.1 % 25.0-50.0 L [facility] MONO % 13.3 % 2.0-10.0 H [facility] EOS % 3.7 % 0-5.0 [facility] BASO % 0.7 % 0.0-2.0 [facility] GRAN # 4.8 K/mm3 2.0-8.00 [facility] IG# 0.0 K/mm3 0.0-0.2 [facility] LYMPH # 0.7 K/mm3 1.0-5.0 L [facility] MONO # 0.9 K/mm3 0.10-1.20 [facility] EOS # 0.3 K/mm3 0.0-0.5 [facility] BASO # 0.1 K/mm3 0.0-0.2 [facility] ID Date Data Source [id number] 07/13/2020 03:17:05 PM EDT [facility] XR THORACIC SPINE AP AND LATERALFINAL RE SULTInterpreted by:Derrick Lema MDThoracic spine, AP and lateral dated 07/13/2020.REASON FOR STUDY: T11 superior endplate and T12 wedge fractures.FINDINGS: AP and lateral views of the thoracic spine were obtained. In the AP projection, there is a mild convex right curve at the thoracolumbar junction. There is slight accentuation of the thoracic kyphotic curve. The mild wedge deformity of the T12 vertebral body is again appreciated and is unchanged from the previous exam of 06/14/2020. There is a slight wedging of T4 vertebral body unchanged from 06/14/2020. There may be a slight interval loss of height of the L1 vertebral body compared to 06/14/2020. This may be due to slight differences in projection. Nevertheless the alignment is unchanged. The exam was done within an external brace with the patient standing.IMPRESSION: Stable appearance of the thoracic spine compared to 06/14/2020 with the possible exception of slight interval loss of height of the L 1 vertebral body. As noted above, this may be secondary to slight differences in projection although clinical correlation is suggested as to the need for further or follow-up imaging.This document has been electronically signed by Derrick Lema MD on 07/13/2020 3:15 PM Name Value Range Interpretation Code Description Data Laura rce(s) Supporting Document(s) ID Date Data Source [id number] 07/13/2020 01:40:05 PM EDT [facility] Name Value Range Interpretation Code Description Data Laura rce(s) Supporting Document(s) Progress Note [facility] [id number]FRJoR5PiWWO5tW1tQXN6ZEnUHwXcBoEkWJAb lbm [file] [id number]= ID Date Data Source [id number] 07/05/2020 12:00:00 AM EDT [facility] Name Value Range Interpretation Code Description Data Laura rce(s) Supporting Document(s) SARS coronavirus 2 RNA Negative [facility] This lab was ordered by [facility] and reported by [facility]. ID Date Data Source [id number] 07/06/2020 08:39:00 AM EDT [facility] FASTING: UNKNOWNReceived: 07/06/2020 at 04:37:00 QPT: [facility], [address], [address] [place], [address], Ryan Brown MD Name Value Range Interpretation Code Description Data Laura rce(s) Supporting Document(s) Sarcoptes scabiei identified in Skin by Light microscopy [facility] SCABIES EXAMINATION Micro Number: [id number] Test Status: Final Specimen Source: [id number] Specimen Quality: Adequate Result: No Sarcoptes scabei seen ID Date Data Source [id number] 07/04/2020 02:24:58 PM EDT [facility] IR IMAGE GUIDED NEEDLE DRAIN PROCEDUREFI NAL RESULTInterpreted by:SERGEI TsangROCEDURE: ULTRASOUND GUIDED PARACENTESISHISTORY/INDICATION: Ascites.TECHNIQUE:Operators:Attending physician: Joanie Franco M.D.Fellow: NoneResident: NoneProcedural Nurse Practitioner: NonePrior to the start of the procedure a "Timeout" was called, confirming the patient by name, medical record number and date of , and the procedure to be performed was confirmed. All procedural staff within the room are in agreement.PROCEDURE/FINDINGS:Limited preprocedural abdominal ultrasound demonstrated drainable ascites fluid pocket in the left lower quadrant of the abdomen, and this site was targeted for paracentesis. The overlying skin was prepped and draped with standard sterile technique. After anesthetizing with 2% lidocaine for local anesthesia, direct ultrasound guidance was used to advance a 5 Fr Yueh needle into the ascites pocket and an image of this access was saved into PACS. A total of 7.5 L of danny r yellow ascitic fluid was removed. A sterile dressing was placed over the puncture site.The patient tolerated the procedure well without immediate complications. IMPRESSION: Successful and uncomplicated ultrasound guided left lower quadrant paracentesis yielding 7.5 L. This document has been electronically signed by Joanie Franco MD on 07/04/2020 2:22 PM Name Value Range Interpretation Code Description Data Laura rce(s) Supporting Document(s) ID Date Data Source [id number] 06/29/2020 12:00:00 AM EDT [facility] Name Value Range Interpretation Code Description Data Laura rce(s) Supporting Document(s) SARS coronavirus 2 RNA Negative [facility] This lab was ordered by [facility] and reported by [facility]. ID Date Data Source [id number] 06/27/2020 12:00:00 AM EDT [facility] Name Value Range Interpretation Code Description Data Laura rce(s) Supporting Document(s) SARS coronavirus 2 RNA Negative [facility] This lab was ordered by [facility] and reported by [facility]. ID Date Data Source [id number] 06/20/2020 04:42:49 PM EDT [facility] Name Value Range Interpretation Code Description Data Laura rce(s) Supporting Document(s) Discharge Summary [facility] [id number]/ZXVzgNMMpx1NzXOokUZe3JFlsLOWsR5EeTIN0lS6mSOX7QUyFQbPnNlOjOLN2 lbm [file] ICAgICAgICAgICAgICAgICAgICAgICAgICAgICAgICAgICAgICAgICAgICAgICAgICAgICAgICAgICAg ICAgICAgICAgICAgICAgICAgICAgICAgICAgICANCiAgICAgICAgICAgICAgICAgICAgICAgICAgICAg ICAgICAgICAgICAgICAgICAgICAgICAgICAgICAgIC AgICAgICAgICAgICAgICAgICAgICAgICAgICAgICAgICAgICAgICANCiAgICAgICAgICAgICAgICAgIC AgICAgICAgICAgICAgICAgICAgICAgICAgICAgICAgICAgICAgICAgICAgICAgICAgICAgICAgICAgIC AgICAgICAgICAgICAgICAgICAgICANCiAgICAgICAg ICAgICAgICAgICAgICAgICAgICAgICAgICAgICAgICAgICAgICAgICAgICAgICAgICAgICAgICAgICAg ICAgICAgICAgICAgICAgICAgICAgICAgICAgICAgICANCiAgICAgICAgICAgICAgICAgICAgICAgICAg ICAgICAgICAgICAgICAgICAgICAgICAgICAgICAgIC AgICAgICAgICAgICAgICAgICAgICAgICAgICAgICAgICAgICAgICAgICANCiAgICAgICAgICAgICAgIC AgICAgICAgICAgICAgICAgICAgICAgICAgICAgICAgICAgICAgICAgICAgICAgICAgICAgICAgICAgIC AgICAgICAgICAgICAgICAgICAgICAgICANCiAgICAg ICAgICAgICAgICAgICAgICAgICAgICAgICAgICAgICAgICAgICAgICAgICAgICAgICAgICAgICAgICAg ICAgICAgICAgICAgICAgICAgICAgICAgICAgICAgICAgICANCiAgICAgICAgICAgICAgICAgICAgICAg ICAgICAgICAgICAgICAgICAgICAgICAgICAgICAgIC AgICAgICAgICAgICAgICAgICAgICAgICAgICAgICAgICAgICAgICAgICAgICANCiAgICAgICAgICAgIC AgICAgICAgICAgICAgICAgICAgICAgICAgICAgICAgICAgICAgICAgICAgICAgICAgICAgICAgICAgIC AgICAgICAgICAgICAgICAgICAgICAgICAgICANCiAg ICAgICAgICAgICAgICAgICAgICAgICAgICAgICAgICAgICAgICAgICAgICAgICAgICAgICAgICAgICAg ICAgICAgICAgICAgICAgICAgICAgICAgICAgICAgICAgICAgICANCjw/oUVsY4updOKcamQ2B6leGt8M Ud7LEF7cb8MdRXKgNOdgvxGkRokZKaHmOXOdQcnPKe y8PRzqOJ4JkYVhN0LuY7TuCFjnRS0LSLUhQZImyUIuEXYpUCHxLhT0BFHcHFzuPA3FaVRwNJfsIRSxME JkMpIeEDXmOQOoKIKkATMlLWJMKEKtFVZqFjPnVAOtLDCpLCopURIRMC9LYnLlD6ExkA85EWiNOb0+DQ kembEzJhoAFnAkTKBqn1CfKRf1LU9XUGAkUickr9Ou RIKcNEGQWSpcXC1XAPX1HKJqCJKaDq7ZUZYbW492haCrII1QDh9UNzQvQP9guw2WJFUmJBUxKkcOVei7 CDgrPG3GjZLtWAoUvHCywBMbS1YeX7UqbRPlbQYssVKEHHVqvgEUET7gH4UcUS3xYN9XFKX2RMFbZdix RxSoREZdKKnaLOMLZEaLZiQqL5Srj9RqKjR1VCGqAa QtXFauAMVzBjV5PQ68dZfzBV8CDZQsKGHrFN01SIGsBRJdAc3FTq9FMbYyHN1ltr2SNENdIHTeQuzEIp u0HHtmLM6UrCYcO6XieBPfd4bFOzZyF9VZTQS4AODmVm6JTCFgEwIdEAAbKQhgXP5vNIElOZXUtKrlta K6SG1YZM3gexHkHV5MWqNwAz4oXl4SZeQpD5UkL4Oo RKIaJZLHMLqkQX7HUDtpOI7fKK4Ma4OIgMBgzS6mpb4TTMNkSHOoBnwtdk7GNozfS0P0cWgkGWQrDBRe BNJRGQkuRG9ELPRlNVW8JFSvRWBeUSOOQlVmA95eYJ6ES4Zum18hSeM4HCFzMxGuLXamDE30bIlgymMi fZBjdVuzGJ7RSv8+DQplbmRvYmoNCnhyZWYNCjAgND NYJmOiVRAmTXUlLNCgVdR2PeVsHq9VWKMqHHOdJSReZqGwWQPkRNJwXWplIONcCXT7XkZ1WUQaDHFvQV 5WZeRaAYGoNmx6TQBpLYBgCNMrwq8XWRZvZILpHKI9UnZnGFIkXGHxDNqiJJTtBVCuPoT0IJJxMZCmSQ 2UEiYrDKXkZBP6BoJsKBEkPYQcvy8HQEDvLOLlDzD6 UsPqPHNvUKOhLAgqYIYaVTJ1XjdtVPEaYTGgUU8YPvXyCFYtZFG5CQOlHAGnOGTnoz9LNDRdPZMwXlOh COXdGQLcWJXqOObdBXUwIAK9UNEaXVAiGJUbQR6TLbBzTMNuOJMxMQieDXUxHFNxhq8AAEKaYPYrKFEo HSXhCENxKPHaUNmgKLLeAIW0WxC2XWWpAJIbVT6TEp PdQKWmNhY1GWgeHSQhYHDepu5NPZLtWQHqKMPaCSHwQUPrVMCmBWseHAZeHILfKGKgNWPlRKDzHX6RFf JhYMQsSzQbXIyzHSYmQVVgbn7BSPTpAPSwCPJ6XWOgCBJkLKEqHHplSEZtNWM1Srf6AHJvKNCnXE9HKi HbSJYcPhP8RIozWHPiLRTlna8XQAOxCQApQOJeMqHm ADIrFSEaSWrvTCBaTOW3OeF6TEVgTSPwGI5FChFyWENrPqR3HEmoEVKpJMTvwm9CUDBmLGWuBwx9XmId DPErNGGlEIgrZUYuQYI5QJE7XSDmFQYyYF7LZwJvSCPlLghrNANtFXSqIWHupd3AQUMkXJJyDRUaFwDj LLIaWBKuVCraSOTvFQG5RuVmFBUzZIHzQM4SSjOrCT EpKpy3FKKiRKGcGNTuje7WAWGfQDJzHJT6GdBpMQVjABEoBKbiJADpSWI1JyYqLHFpFCKrSJ8BXgOeVT BwLuz1XVQnKUJbWEHqzt7HMAEwJRKvPIvtApUeFQLsVXUyHBbxXDOvMGN6YBKeCDFrZFRxRM1YCyTtTV WjDbPfNaKqLPEsGKIddb6DPMLpCSBcHOS1XMAkJGEx NCAwSVxfCYKtNGE9KdWwPMZqCHFgFS5DMhUgYONlJlJcTyEoMNGjBNEhnl1HVRJhARHqPlE5ZQMkSNWh HBSsVHrkOQQdNNA1IvAkUGXrKBKaXK9LRbVqIJEtIef5WsNtYOChWYZsdo4XsAWeoPfjnp1MRJiJEi7D iUrtWJKmTOhlWu5blYM4ZnSlKVCMLd7CcxWhUJJrWO OEAVkdIVPaNJI4DmHaZUKqBDEaBzc1CDnzIjHpPsK6ZHY7M4SkViAvSoC4XDXpOeE2RdOyQSMoCKPpN4 T6EaSfCguqEKC0AMDwQBD+PW4gHBm+Yz3Lf3KqboN8jhEnRBcfLOZuHb7IEFFQB3SRAx== ID Date Data Source [id number] 06/19/2020 10:27:56 AM EDT [facility] Name Value Range Interpretation Code Description Data Laura rce(s) Supporting Document(s) Consultation [facility] [id number]/LCXceMOWum6RbYTefOIh9UIdsZLVxB0PhCRO4zY8gYLD8EWwMKgIyKdDzCZO1 lbm [file] ZDY+AJ4aJPc+[id number]DfyXOCAJf1J ID Date Data Source [id number] 06/19/2020 05:23:06 AM T [facility] Name Value Range Interpretation Code Description Data Laura rce(s) Supporting Document(s) Leukocytes [#/volume] in Blood by Automated count 7.2 10*3/uL 4-10 [facility] Erythrocytes [#/volume] in Blood by Automated count 2.45 10*6/uL 4.6- 6.1 L [facility] Hemoglobin [Mass/volume] in Blood 8.1 g/dL 13.5-18 L [facility] Hematocrit [Volume Fraction] of Blood by Automated count 24.7 % 4 1-53 L [facility] Erythrocyte mean corpuscular volume [Entitic volume] b y Automated count 100.6 fL 80-96 H [facility] Erythrocyte mean corpuscular hemoglobin [Entitic mass] by Automated count 33.2 pg 27-33 H [facility] Erythrocyte mean corpuscular hemoglobin concentration [Mass/volume] by [facility] 33.0 g/dL [facility].0-[facility] [Ratio] by Automated count 16.3 % 11.5-14.5 H [facility] Platelets [#/volume] in Blood by Automated count 58 10*3/uL 150-400 L [facility] Differential cell count method - Blood [facility] Neutrophils/100 leukocytes in Blood by Automated count 71 % [facility] Lymphocytes/100 leukocytes in Blood by Automated count 9 % [facility] Monocytes/100 leukocytes in Blood by Automated count 18 % [facility] Eosinophils/100 leukocytes in Blood by Automated count 1 % [facility] Basophils/100 leukocytes in Blood by Automated count 1 % [facility] Neutrophils [#/volume] in Blood by Automated count 5.19 10*3/uL 1.8-7 .0 [facility] Lymphocytes [#/volume] in Blood by Automated count 0.62 10*3/uL 1.2-4 .0 L [facility] Monocytes [#/volume] in Blood by Automated count 1.27 10*3/uL 0-0.8 H [facility] Eosinophils [#/volume] in Blood by Automated count 0.09 10*3/uL 0-0.5 [facility] Basophils [#/volume] in Blood by Automated count 0.07 10*3/uL 0-0.2 [facility] Nucleated erythrocytes/100 leukocytes [Ratio] in Blood by Automated count 0 /100{WBCs} 0-0 [facility] ID Date Data Source [id number] 06/19/2020 05:31:50 AM EDT [facility] Name Value Range Interpretation Code Description Data Laura rce(s) Supporting Document(s) Bicarbonate [Moles/volume] in Serum 26 mmol/L 22-29 [facility] Chloride [Moles/volume] in Serum or Plasma 95 mmol/L 98-107 L [facility] Creatinine [Mass/volume] in Serum or Plasma 1.12 mg/dL 0.70-1.20 [facility] Glucose [Mass/volume] in Serum or Plasma 161 mg/dL 70-140 H [facility] Potassium [Moles/volume] in Serum or Plasma 4.2 mmol/L 3.4-5.1 [facility] Sodium [Moles/volume] in Serum or Plasma 128 mmol/L 136-145 L [facility] Urea nitrogen [Mass/volume] in Serum or Plasma 23 mg/dL 6-20 H [facility] Anion gap 3 in Serum or Plasma 7 mmol/L 8-15 L [facility] Osmolality of Serum or Plasma by calculation 273 mosm/kg 275-300 L [facility] Creatinine/Urea nitrogen [Mass Ratio] in Serum or Plasma 21 [facility] Calcium [Mass/volume] in Serum or Plasma 9.2 mg/dL 8.6-10.0 [facility] Glomerular filtration rate/1.73 sq M pre dicted among non-blacks [Volume Rate/Area] in Serum or Plasma by Creatinine-based formula (MDRD) 70 mL/min/1.73m2 >60 [facility] Glomerular filtration rate/1.73 sq M pre dicted among blacks [Volume Rate/Area] in Serum or Plasma by Creatinine-based formula (MDRD) 81 mL/min/1.73m2 >60 [facility] ID Date Data Source [id number] 06/18/2020 08:05:13 PM [facility] Value Range Interpretation Code Description Data Laura rce(s) Supporting Document(s) Prothrombin time (PT) 18.4 s 12.5-14.9 H [facility] INR in Platelet poor plasma by Coagulation assay 1.51 [facility] Routine intensity oral anticoagulation I NR is typically 2.0-3.0. Target INR must be clinically individualized. ID Date Data Source [id number] 06/18/2020 08:46:55 AM [facility] Value Range Interpretation Code Description Data Laura rce(s) Supporting Document(s) Leukocytes [#/volume] in Blood by Automated count 7.4 10*3/uL 4-10 [facility] Erythrocytes [#/volume] in Blood by Automated count 2.64 10*6/uL 4.6- 6.1 L [facility] Hemoglobin [Mass/volume] in Blood 8.9 g/dL 13.5-18 L [facility] Hematocrit [Volume Fraction] of Blood by Automated count 26.8 % 4 1-53 L [facility] Erythrocyte mean corpuscular volume [Entitic volume] b y Automated count 101.6 fL 80-96 H [facility] Erythrocyte mean corpuscular hemoglobin [Entitic mass] by Automated count 33.7 pg 27-33 H [facility] Erythrocyte mean corpuscular hemoglobin concentration [Mass/volume] by Automated count 33.1 g/dL 32.0-36.0 [facility] width [Ratio] by Automated count 16.4 % 11.5-14.5 H [facility] Platelets [#/volume] in Blood by Automated count 60 10*3/uL 150-400 L [facility] Differential cell count method - Blood [facility] Neutrophils/100 leukocytes in Blood by Automated count 71 % [facility] Lymphocytes/100 leukocytes in Blood by Automated count 8 % [facility] Monocytes/100 leukocytes in Blood by Automated count 18 % [facility] Eosinophils/100 leukocytes in Blood by Automated count 2 % [facility] Basophils/100 leukocytes in Blood by Automated count 1 % [facility] Neutrophils [#/volume] in Blood by Automated count 5.25 10*3/uL 1.8-7 .0 [facility] Lymphocytes [#/volume] in Blood by Automated count 0.56 10*3/uL 1.2-4 .0 L [facility] Monocytes [#/volume] in Blood by Automated count 1.36 10*3/uL 0-0.8 H [facility] Eosinophils [#/volume] in Blood by Automated count 0.14 10*3/uL 0-0.5 [facility] Basophils [#/volume] in Blood by Automated count 0.08 10*3/uL 0-0.2 [facility] Nucleated erythrocytes/100 leukocytes [Ratio] in Blood by Automated count 0 /100{WBCs} 0-0 [facility] ID Date Data Source [id number] 06/18/2020 09:19:18 AM EDT [facility] Name Value Range Interpretation Code Description Data Laura rce(s) Supporting Document(s) Albumin [Mass/volume] in Serum or Plasma by Bromocresol green (BCG) dye binding method 2.8 g/dL 3.5-5.2 [facility] Bilirubin.total [Mass/volume] in Serum or Plasma 2.7 mg/dL <1.2 H [facility] Calcium [Mass/volume] in Serum or Plasma 9.0 mg/dL 8.6-10.0 [facility] Chloride [Moles/volume] in Serum or Plasma 95 mmol/L 98-107 L [facility] Creatinine [Mass/volume] in Serum or Plasma 1.14 mg/dL 0.70-1.20 [facility] Glucose [Mass/volume] in Serum or Plasma 150 mg/dL 70-140 H [facility] Alkaline phosphatase [Enzymatic activity/volume] in Serum or Plasma 171 U/L 40-129 [facility] Potassium [Moles/volume] in Serum or Plasma 4.2 mmol/L 3.4-5.1 [facility] Protein [Mass/volume] in Serum or Plasma 6.5 g/dL 6.4-8.3 [facility] Sodium [Moles/volume] in Serum or Plasma 125 mmol/L 136-145 L [facility] Aspartate aminotransferase [Enzymatic activity/volume] in Serum or Plasma 37 U/L <40 [facility] Urea nitrogen [Mass/volume] in Serum or Plasma 22 mg/dL 6-20 H [facility] Osmolality of Serum or Plasma by calculation 266 mosm/kg 275-300 L [facility] Creatinine/Urea nitrogen [Mass Ratio] in Serum or Plasma 19 [facility] Bicarbonate [Moles/volume] in Serum 24 mmol/L 22-29 [facility] Alanine aminotransferase [Enzymatic activity/volume] in Seru m or Plasma 22 U/L <41 [facility] Anion gap 3 in Serum or Plasma 6 mmol/L 8-15 L [facility] Glomerular filtration rate/1.73 sq M pre dicted among non-blacks [Volume Rate/Area] in Serum or Plasma by Creatinine-based formula (MDRD) 69 mL/min/1.73m2 >60 [facility] Glomerular filtration rate/1.73 sq M pre dicted among blacks [Volume Rate/Area] in Serum or Plasma by Creatinine-based formula (MDRD) 80 mL/min/1.73m2 >60 [facility] ID Date Data Source [id number] 06/18/2020 06:34:13 AM EDT [facility] Name Value Range Interpretation Code Description Data Laura rce(s) Supporting Document(s) Specimen source [Identifier] of Unspecified specimen [facility] SARS-CoV-2 RNA 2018 nCoV Real-Time RT-PCR: NOT DETECTED [facility] Assay Performed [facility] Patients first test for [facility] Patient employed in healthcare setting [facility] Patient has symptoms related to condition [facility] When did you start to experience these symptoms [Date and time] [Phen X] [facility] Patient was hospitalized because of this condition [facility] patient was admitted to ICU for condition [facility] Patient resides in a congregate care setting [facility] status [facility] ID Date Data Source [id number] 06/17/2020 12:25:00 PM EDT [facility] Name Value Range Interpretation Code Description Data Laura rce(s) Supporting Document(s) SARS-CoV-2 RNA 2018 nCoV Real-Time RT-PCR: NOT DETECTED [facility] This lab was ordered by [facility] and reported by [facility] ID Date Data Source [id number] 06/17/2020 04:03:56 AM EDT [facility] Name Value Range Interpretation Code Description Data Laura rce(s) Supporting Document(s) Leukocytes [#/volume] in Blood by Automated count 7.2 10*3/uL 4-10 [facility] Erythrocytes [#/volume] in Blood by Automated count 2.47 10*6/uL 4.6- 6.1 L [facility] Hemoglobin [Mass/volume] in Blood 8.3 g/dL 13.5-18 L [facility] Hematocrit [Volume Fraction] of Blood by Automated count 25.2 % 4 1-53 L [facility] Erythrocyte mean corpuscular volume [Entitic volume] b y Automated count 101.8 fL 80-96 H [facility] Erythrocyte mean corpuscular hemoglobin [Entitic mass] by Automated count 33.6 pg 27-33 H [facility] Erythrocyte mean corpuscular hemoglobin concentration [Mass/volume] by Automated count 33.0 g/dL 32.0-36.0 [facility] width [Ratio] by Automated count 16.6 % 11.5-14.5 [facility] Platelets [#/volume] in Blood by Automated count 59 10*3/uL 150-400 L [facility] Differential cell count method - Blood [facility] Neutrophils/100 leukocytes in Blood by Automated count 68 % [facility] Lymphocytes/100 leukocytes in Blood by Automated count 7 % [facility] Monocytes/100 leukocytes in Blood by Automated count 22 % [facility] Eosinophils/100 leukocytes in Blood by Automated count 2 % [facility] Basophils/100 leukocytes in Blood by Automated count 1 % [facility] Neutrophils [#/volume] in Blood by Automated count 4.93 10*3/uL 1.8-7 .0 [facility] Lymphocytes [#/volume] in Blood by Automated count 0.48 10*3/uL 1.2-4 .0 L [facility] Monocytes [#/volume] in Blood by Automated count 1.60 10*3/uL 0-0.8 H [facility] Eosinophils [#/volume] in Blood by Automated count 0.17 10*3/uL 0-0.5 [facility] Basophils [#/volume] in Blood by Automated count 0.06 10*3/uL 0-0.2 [facility] Nucleated erythrocytes/100 leukocytes [Ratio] in Blood by Automated count 0 /100{WBCs} 0-0 [facility] ID Date Data Source [id number] 06/17/2020 04:17:59 AM T [facility] Name Value Range Interpretation Code Description Data Laura rce(s) Supporting Document(s) Bicarbonate [Moles/volume] in Serum 24 mmol/L 22-29 [facility] Chloride [Moles/volume] in Serum or Plasma 95 mmol/L 98-107 L [facility] Creatinine [Mass/volume] in Serum or Plasma 1.13 mg/dL 0.70-1.20 [facility] Glucose [Mass/volume] in Serum or Plasma 198 mg/dL 70-140 H [facility] Potassium [Moles/volume] in Serum or Plasma 4.3 mmol/L 3.4-5.1 [facility] Sodium [Moles/volume] in Serum or Plasma 128 mmol/L 136-145 L [facility] Urea nitrogen [Mass/volume] in Serum or Plasma 23 mg/dL 6-20 H [facility] Anion gap 3 in Serum or Plasma 10 mmol/L 8-15 [facility] Osmolality of Serum or Plasma by calculation 276 mosm/kg 275-300 [facility] Creatinine/Urea nitrogen [Mass Ratio] in Serum or Plasma 20 [facility] Calcium [Mass/volume] in Serum or Plasma 8.8 mg/dL 8.6-10.0 [facility] Glomerular filtration rate/1.73 sq M pre dicted among non-blacks [Volume Rate/Area] in Serum or Plasma by Creatinine-based formula (MDRD) 69 mL/min/1.73m2 >60 [facility] Glomerular filtration rate/1.73 sq M pre dicted among blacks [Volume Rate/Area] in Serum or Plasma by Creatinine-based formula (MDRD) 80 mL/min/1.73m2 >60 [facility] ID Date Data Source [id number] 06/17/2020 04:17:59 AM [facility] Name Value Range Interpretation Code Description Data Laura rce(s) Supporting Document(s) Magnesium [Mass/volume] in Serum or Plasma 1.9 mg/dL 1.6-2.6 [facility] ID Date Data Source [id number] 06/17/2020 04:17:59 AM [facility] Name Value Range Interpretation Code Description Data Laura rce(s) Supporting Document(s) Phosphate [Mass/volume] in Serum or Plasma 3.4 mg/dL 2.5-4.5 [facility] ID Date Data Source [id number] 06/16/2020 04:35:58 AM [facility] Value Range Interpretation Code Description Data Laura rce(s) Supporting Document(s) Leukocytes [#/volume] in Blood by Automated count 7.6 10*3/uL 4-10 [facility] Erythrocytes [#/volume] in Blood by Automated count 2.53 10*6/uL 4.6- 6.1 L [facility] Hemoglobin [Mass/volume] in Blood 8.5 g/dL 13.5-18 L [facility] Hematocrit [Volume Fraction] of Blood by Automated count 25.6 % 4 1-53 L [facility] Erythrocyte mean corpuscular volume [Entitic volume] b y Automated count 101.2 fL 80-96 H [facility] Erythrocyte mean corpuscular hemoglobin [Entitic mass] by Automated count 33.5 pg 27-33 H [facility] Erythrocyte mean corpuscular hemoglobin concentration [Mass/volume] by Automated count 33.1 g/dL 32.0-36.0 [facility] width [Ratio] by Automated count 16.9 % 11.5-14.5 [facility] Platelets [#/volume] in Blood by Automated count 55 10*3/uL 150-400 L [facility] Differential cell count method - Blood [facility] Neutrophils/100 leukocytes in Blood by Automated count 63 % [facility] Lymphocytes/100 leukocytes in Blood by Automated count 7 % [facility] Monocytes/100 leukocytes in Blood by Automated count 26 % [facility] Eosinophils/100 leukocytes in Blood by Automated count 3 % [facility] Basophils/100 leukocytes in Blood by Automated count 1 % [facility] Neutrophils [#/volume] in Blood by Automated count 4.85 10*3/uL 1.8-7 .0 [facility] Lymphocytes [#/volume] in Blood by Automated count 0.57 10*3/uL 1.2-4 .0 L [facility] Monocytes [#/volume] in Blood by Automated count 1.94 10*3/uL 0-0.8 [facility] Eosinophils [#/volume] in Blood by Automated count 0.20 10*3/uL 0-0.5 [facility] Basophils [#/volume] in Blood by Automated count 0.05 10*3/uL 0-0.2 [facility] Nucleated erythrocytes/100 leukocytes [Ratio] in Blood by Automated count 0 /100{WBCs} 0-0 [facility] ID Date Data Source [id number] 06/16/2020 05:02:43 AM [facility] Name Value Range Interpretation Code Description Data Laura rce(s) Supporting Document(s) Magnesium [Mass/volume] in Serum or Plasma 1.9 mg/dL 1.6-2.6 [facility] ID Date Data Source [id number] 06/16/2020 05:02:43 AM [facility] Name Value Range Interpretation Code Description Data Laura rce(s) Supporting Document(s) Bicarbonate [Moles/volume] in Serum 26 mmol/L 22-29 [facility] Chloride [Moles/volume] in Serum or Plasma 94 mmol/L 98-107 L [facility] Creatinine [Mass/volume] in Serum or Plasma 1.12 mg/dL 0.70-1.20 [facility] Glucose [Mass/volume] in Serum or Plasma 170 mg/dL 70-140 [facility] Potassium [Moles/volume] in Serum or Plasma 4.2 mmol/L 3.4-5.1 [facility] Sodium [Moles/volume] in Serum or Plasma 125 mmol/L 136-145 L [facility] Urea nitrogen [Mass/volume] in Serum or Plasma 20 mg/dL 6-20 [facility] Anion gap 3 in Serum or Plasma 5 mmol/L 8-15 L [facility] Osmolality of Serum or Plasma by calculation 267 mosm/kg 275-300 L [facility] Creatinine/Urea nitrogen [Mass Ratio] in Serum or Plasma 18 [facility] Calcium [Mass/volume] in Serum or Plasma 8.5 mg/dL 8.6-10.0 L [facility] Glomerular filtration rate/1.73 sq M pre dicted among non-blacks [Volume Rate/Area] in Serum or Plasma by Creatinine-based formula (MDRD) 70 mL/min/1.73m2 >60 [facility] Glomerular filtration rate/1.73 sq M pre dicted among blacks [Volume Rate/Area] in Serum or Plasma by Creatinine-based formula (MDRD) 81 mL/min/1.73m2 >60 [facility] ID Date Data Source [id number] 06/16/2020 05:02:43 AM [facility] Name Value Range Interpretation Code Description Data Laura rce(s) Supporting Document(s) Phosphate [Mass/volume] in Serum or Plasma 2.9 mg/dL 2.5-4.5 [facility] ID Date Data Source [id number] 06/15/2020 04:29:53 AM [facility] Name Value Range Interpretation Code Description Data Laura rce(s) Supporting Document(s) Leukocytes [#/volume] in Blood by Automated count 8.4 10*3/uL 4-10 [facility] Erythrocytes [#/volume] in Blood by Automated count 2.53 10*6/uL 4.6- 6.1 [facility] Hemoglobin [Mass/volume] in Blood 8.6 g/dL 13.5-18 [facility] Hematocrit [Volume Fraction] of Blood by Automated count 25.3 % 4 1-53 L [facility] Erythrocyte mean corpuscular volume [Entitic volume] b y Automated count 100.3 fL 80-96 [facility] Erythrocyte mean corpuscular hemoglobin [Entitic mass] by Automated count 33.9 pg 27-33 [facility] Erythrocyte mean corpuscular hemoglobin concentration [Mass/volume] by Autom[facility] count 33.8 g/dL [facility].0-[facility] [Ratio] by Automated count 16.7 % 11.5-14.5 [facility] Platelets [#/volume] in Blood by Automated count 60 10*3/uL 150-400 L [facility] Differential cell count method - Blood [facility] Neutrophils/100 leukocytes in Blood by Automated count 65 % [facility] Lymphocytes/100 leukocytes in Blood by Automated count 7 % [facility] Monocytes/100 leukocytes in Blood by Automated count 25 % [facility] Eosinophils/100 leukocytes in Blood by Automated count 2 % [facility] Basophils/100 leukocytes in Blood by Automated count 1 % [facility] Neutrophils [#/volume] in Blood by Automated count 5.55 10*3/uL 1.8-7 .0 [facility] Lymphocytes [#/volume] in Blood by Automated count 0.55 10*3/uL 1.2-4 .0 L [facility] Monocytes [#/volume] in Blood by Automated count 2.11 10*3/uL 0-0.8 [facility] Eosinophils [#/volume] in Blood by Automated count 0.17 10*3/uL 0-0.5 [facility] Basophils [#/volume] in Blood by Automated count 0.04 10*3/uL 0-0.2 [facility] Nucleated erythrocytes/100 leukocytes [Ratio] in Blood by Automated count 0 /100{WBCs} 0-0 [facility] ID Date Data Source [id number] 06/15/2020 05:13:19 AM EDT [facility] Name Value Range Interpretation Code Description Data Laura rce(s) Supporting Document(s) Bicarbonate [Moles/volume] in Serum 24 mmol/L 22-29 [facility] Chloride [Moles/volume] in Serum or Plasma 93 mmol/L 98-107 L [facility] Creatinine [Mass/volume] in Serum or Plasma 1.02 mg/dL 0.70-1.20 [facility] Glucose [Mass/volume] in Serum or Plasma 137 mg/dL 70-140 [facility] Potassium [Moles/volume] in Serum or Plasma 4.5 mmol/L 3.4-5.1 [facility] Sodium [Moles/volume] in Serum or Plasma 126 mmol/L 136-145 L [facility] Urea nitrogen [Mass/volume] in Serum or Plasma 21 mg/dL 6-20 [facility] Anion gap 3 in Serum or Plasma 9 mmol/L 8-15 [facility] Osmolality of Serum or Plasma by calculation 267 mosm/kg 275-300 L [facility] Creatinine/Urea nitrogen [Mass Ratio] in Serum or Plasma 21 [facility] Calcium [Mass/volume] in Serum or Plasma 8.3 mg/dL 8.6-10.0 L [facility] Glomerular filtration rate/1.73 sq M pre dicted among non-blacks [Volume Rate/Area] in Serum or Plasma by Creatinine-based formula (MDRD) 79 mL/min/1.73m2 >60 [facility] Glomerular filtration rate/1.73 sq M pre dicted among blacks [Volume Rate/Area] in Serum or Plasma by Creatinine-based formula (MDRD) >60 [facility] ID Date Data Source [id number] 06/15/2020 05:13:19 AM [facility] Name Value Range Interpretation Code Description Data Laura rce(s) Supporting Document(s) Magnesium [Mass/volume] in Serum or Plasma 2.1 mg/dL 1.6-2.6 [facility] ID Date Data Source [id number] 06/15/2020 05:13:19 AM [facility] Name Value Range Interpretation Code Description Data Laura rce(s) Supporting Document(s) Phosphate [Mass/volume] in Serum or Plasma 2.1 mg/dL 2.5-4.5 [facility] ID Date Data Source [id number] 06/15/2020 12:33:29 PM [facility] Name Value Range Interpretation Code Description Data Laura rce(s) Supporting Document(s) Albumin [Mass/volume] in Serum or Plasma by Bromocresol green (BCG) dye binding method 3.0 g/dL 3.5-5.2 [facility] Bilirubin.total [Mass/volume] in Serum or Plasma 3.0 mg/dL <1.2 H [facility] Confirmed Bilirubin.direct [Mass/volume] in Serum or Plasma 1.3 mg/dL <0.3 [facility] Alkaline phosphatase [Enzymatic activity/volume] in Serum or Plasma 124 U/L 40-129 [facility] Aspartate aminotransferase [Enzymatic activity/volume] in Serum or Plasma 29 U/L <40 [facility] Alanine aminotransferase [Enzymatic activity/volume] in Seru m or Plasma 15 U/L <41 [facility] Protein [Mass/volume] in Serum or Plasma 5.9 g/dL 6.4-8.3 L [facility] ID Date Data Source [id number] 06/14/2020 04:30:34 PM EDT [facility] Name Value Range Interpretation Code Description Data Laura rce(s) Supporting Document(s) [facility] BPTOHh5bJyDUZzKa41/EWZesUDPwu3LnKKstACi8DMcoBEAkO0BjHAH5qM8zMVV1XLjOEsSjSaPgTZWu lbm [file] AgICAgICAgICAgICAgICAgICAgICAgICAgICAgICAgICAgICAgICAgICAgICAgICAgICAgICAgICAgIC AgICAgICAgICAgICAgICAgICAgICAgICAgDQogICAgICAgICAgICAgICAgICAgICAgICAgICAgICAgIC AgICAgICAgICAgICAgICAgICAgICAgICAgICAgICAg ICAgICAgICAgICAgICAgICAgICAgICAgICAgICAgICAgICAgDQogICAgICAgICAgICAgICAgICAgICAg ICAgICAgICAgICAgICAgICAgICAgICAgICAgICAgICAgICAgICAgICAgICAgICAgICAgICAgICAgICAg ICAgICAgICAgICAgICAgICAgDQogICAgICAgICAgIC AgICAgICAgICAgICAgICAgICAgICAgICAgICAgICAgICAgICAgICAgICAgICAgICAgICAgICAgICAgIC AgICAgICAgICAgICAgICAgICAgICAgICAgICAgDQogICAgICAgICAgICAgICAgICAgICAgICAgICAgIC AgICAgICAgICAgICAgICAgICAgICAgICAgICAgICAg ICAgICAgICAgICAgICAgICAgICAgICAgICAgICAgICAgICAgICAgDQogICAgICAgICAgICAgICAgICAg ICAgICAgICAgICAgICAgICAgICAgICAgICAgICAgICAgICAgICAgICAgICAgICAgICAgICAgICAgICAg ICAgICAgICAgICAgICAgICAgICAgDQogICAgICAgIC AgICAgICAgICAgICAgICAgICAgICAgICAgICAgICAgICAgICAgICAgICAgICAgICAgICAgICAgICAgIC AgICAgICAgICAgICAgICAgICAgICAgICAgICAgICAgDQogICAgICAgICAgICAgICAgICAgICAgICAgIC AgICAgICAgICAgICAgICAgICAgICAgICAgICAgICAg ICAgICAgICAgICAgICAgICAgICAgICAgICAgICAgICAgICAgICAgICAgDQogICAgICAgICAgICAgICAg ICAgICAgICAgICAgICAgICAgICAgICAgICAgICAgICAgICAgICAgICAgICAgICAgICAgICAgICAgICAg ICAgICAgICAgICAgICAgICAgICAgICAgDQogICAgIC AgICAgICAgICAgICAgICAgICAgICAgICAgICAgICAgICAgICAgICAgICAgICAgICAgICAgICAgICAgIC SsFRReKKAaJPFhKNXiBVIpWMWxIWEzWINsOITaBIFlCKFmCTi2O9ylHMBzIBXaYF5lDJz8Wr5+DQoNCm BjFJI6mlQmxR2YEZ8ya5IyVXwwGVEkf3VuUWs5VX0L QZKrFGbcLF7OCQhlhr7LRYSxIJAwyWPSu9yoZaWaSCM0UYXmMvnfTU3ASTFcZ6pkegVsGWJbQXPWLRej VOKQMApvUYTVKZMbFYEgRbCzWlYdBMOeJSFqJKQVQJP1LVWkOuMzVPDxOCIwZV2WMEHfK386gaAdWE2O Ed5TYnPsUR2mwi0BKkDyZTAbMnhCMrh9IUjqAP4NeT IhaNHjABOzGTUOFqFqW5wac2SrRiDmSFQIQYwcGW6Ze0EoiEOeZAq+Dw7JZF6yq0PgSGbkZBFyCE7swu 9YECsKLeDgS8UtkGdrPEKyakP1sOQjBTK3TJUztaodoZjeOWMSFRcrJ0GsxryigDsrMCHuOAMaUT9kUo 0cUKUpWNGyNtY1NMTJNP9TJUAzRZYhvYUhJZAeADBC QX5RCBbnZPI5HNBbkqKexICxZSybUS8DBAQswuCvCpWgFIKINLn+Hl0ABJ6xw6UjEMcgKWJnCZ3nzh5O DEwXKjCiJ3H6lDDzV2M6LViiYm1JLRHjWFDxFuHiUQRARMbtYB2AUU9mrcR3EN8GlIVyZUOpZBWdtVPz KXy3B11nbKXsZCimSC9VLSV+Fady+Al4JPXWmBYRtKG BqUtIoDHTOLfTkT6KtM5NXl7SqT0WlJP21rQlgcePjGEtiCC2LRX5eCQBfQFTUUU3TqRJklN4qslFoKd KrEDFEThRgI32hfPXiVSNlNLYmPQZhJz7ASMGrX0EnpqFrkSxxayVqPEGiVDHYHN7NXFumgnRmzIJulO ucUP70sRmiHE5DUt2XAnNdFQ4tbd5RzFNzDf5HJWHv Zr9NXVTeUCGrZEVrFWY5TQVmDdUpFUlfIGMiJWPbDEN1DTAcAOSmAG4HQxQyFIAwNTQmDcRaZXPrWVSt wn5CKZZaEDK4MnK8DsFcQHKnQMBaEFjzTXOmCRNgRIV5UVVlBMRkUW8CDcSaPEBhLPH6WImkNVEoEVJx sa0UUINhIZWtXSX3DbXvLVQmVBGkTWcrMKNrQFB1Gi X5MKKfFKJcRO4UWlArRXAnAGe0VNbeLQStEOHiqa6EDTYlWEDjXrA3NMGhALWrZTBbUKfgHGZzWWApGR WtTDRqUMBeNC9XElMyNDNdTBI3HRCmPMZvBPTyql4USVDcSHXmTie3DcOfSLKfVDOsOEdpCNQiQPJtBo s6DZAzPOPwOC7EDbIlQDJoNuO4TDOqBDHoELLmil1N XXDzSMKjKrb4GvGnXFVlHPPhKHufKESiRJI0ALCyKZKdCYGyYP3XOdSfPXWzWmG3ThjwTEDbHBAkkh9J RTCfXOUgKmt8JGCsXLFrBVOySHluTEXfBIJ9MDTaHVMvDZWmYI8HWvZtNLFlGadtAMAkULIrAJEwxt8C MUTuWDNuOYQ3MsMyPWJbSRTxEHdrDPOdMNHhYVpoML VyWQWqMP4LHjKfFQLqVfD1TWLkJGFiBQIiwj1NRXJdSJSeVBJpYYAkXGNcVPZmUPhdLZMhRODhVWN8FJ QzBVFhZS3UCzCnHHGkHcQdSOLhQMTaRBYlxe7LMMMiKGN0BjZ7MLFwBDJjUZKlBHosWOEgOIAkJoA0FM ToEOMfMT2SCiXuTTNtVGO8XZcyWDNnSZPeko0HHIGe NEV5QJG4AeZeRBYyFJLoMPzpJQGiDYU4PrHeSKMkHGPjEN5RQfEeEEQvZEK2TDQuJFIkBKAtpg1WHOPn TMV4ZmO7WLXbLJMbXKCsCHshDNGxLGP7ToF8LSHkBFYkQM8ESoJmUDMxPCS4BKnqJNTcSVHjqi5MnUMf kMctis7DBYdLCi1FxYroGSZ8RBmdQb8tqOXkVVMhHR YFTw4JkjDcQTGrKYDSNVlbAFGwMTB8W3EtVzR5EAF7ODU8UNngE4FfBiG5BPLjXeq4ZKTkBrV9Unk4VV SiPYF9OACcWzS3UKNuMJRqJLMzBFYmMmH3TZO+MQ1cICm+Cn8Yg1DttmB4oeNdSJm0MuV5Wt6DKEUWE3 YNCg== ID Date Data Source [id number] 06/14/2020 04:04:00 PM EDT [facility] Name Value Range Interpretation Code Description Data Laura rce(s) Supporting Document(s) SARS-CoV-2 RNA 2019 nCoV Real-Time RT-PCR: NOT DETECTED [facility] lab was ordered by [facility] and reported by [facility]. ID Date Data Source [id number] 06/14/2020 07:53:53 PM EDT [facility] Name Value Range Interpretation Code Description Data Laura rce(s) Supporting Document(s) Specimen source [Identifier] of Unspecified specimen [facility] SARS-CoV-2 RNA 2019 nCoV Real-Time RT-PCR: NOT DETECTED [facility] Assay Performed [facility] Patients first test for [facility] Patient employed in healthcare setting [facility] Patient has symptoms related to [facility] When did you start to experience these symptoms [Date and time] [Phen X] [facility] Patient was hospitalized because of this condition [facility] patient was admitted to ICU for [facility] Patient resides in a congregate care setting [facility] status [facility] ID Date Data Source [id number] 06/14/2020 03:26:05 PM EDT [facility] Name Value Range Interpretation Code Description Data Laura rce(s) Supporting Document(s) Consultation [facility] GJQRUg0hCxJNYoSa54/DFKmnHMIil5LeKQyxEGo2QAjaXZHcB6BxXHS3oK1oNXD3ULqZGfSwDvPnEGVe [facility] [file] AgICAgICAgICAgICAgICAgICAgICAgICAgICAgICAg ICAgICAgICAgICAgICAgICAgICAgICAgICAgICAgICAgICAgICAgICAgICAgICAgICAgDQogICAgICAg ICAgICAgICAgICAgICAgICAgICAgICAgICAgICAgICAgICAgICAgICAgICAgICAgICAgICAgICAgICAg ICAgICAgICAgICAgICAgICAgICAgICAgICAgICAgIC AgDQogICAgICAgICAgICAgICAgICAgICAgICAgICAgICAgICAgICAgICAgICAgICAgICAgICAgICAgIC AgICAgICAgICAgICAgICAgICAgICAgICAgICAgICAgICAgICAgICAgICAgDQogICAgICAgICAgICAgIC AgICAgICAgICAgICAgICAgICAgICAgICAgICAgICAg ICAgICAgICAgICAgICAgICAgICAgICAgICAgICAgICAgICAgICAgICAgICAgICAgICAgICAgDQogICAg ICAgICAgICAgICAgICAgICAgICAgICAgICAgICAgICAgICAgICAgICAgICAgICAgICAgICAgICAgICAg ICAgICAgICAgICAgICAgICAgICAgICAgICAgICAgIC AgICAgDQogICAgICAgICAgICAgICAgICAgICAgICAgICAgICAgICAgICAgICAgICAgICAgICAgICAgIC AgICAgICAgICAgICAgICAgICAgICAgICAgICAgICAgICAgICAgICAgICAgICAgDQogICAgICAgICAgIC AgICAgICAgICAgICAgICAgICAgICAgICAgICAgICAg ICAgICAgICAgICAgICAgICAgICAgICAgICAgICAgICAgICAgICAgICAgICAgICAgICAgICAgICAgDQog ICAgICAgICAgICAgICAgICAgICAgICAgICAgICAgICAgICAgICAgICAgICAgICAgICAgICAgICAgICAg ICAgICAgICAgICAgICAgICAgICAgICAgICAgICAgIC AgICAgICAgDQogICAgICAgICAgICAgICAgICAgICAgICAgICAgICAgICAgICAgICAgICAgICAgICAgIC AgICAgICAgICAgICAgICAgICAgICAgICAgICAgICAgICAgICAgICAgICAgICAgICAgDQogICAgICAgIC AgICAgICAgICAgICAgICAgICAgICAgICAgICAgICAg ICAgICAgICAgICAgICAgICAgICAgICAgICAgICAgICAgICAgICAgICAgICAgICAgICAgICAgICAgICAg CHg4N4xwTVEjELIaMD6lXEu9Xu6+MHpJUkJeEEE4niUemO6DKY5sd6ShWZqoYLBho6DgGSf5HO1EKJHy ADbkJY6GOBdhec2TJWOmEWMxnPMUz7sgPvKhIQI1UI VbUzyqUW9UJXEeT1rvxsHbCAYiOMJPER8NFxMjJ0ZlcI11JZUIEy0+ACbugpXdIsfNYpX1NUVhh7FeDV t1FV9FYNClJuiks4OyDSqeKTAYHRbiQL6ZWDE4RRW6UPTcNm8NJIXhL996zvAhIK1FQs1KCxTwNR2qmh 0QSHnnXYAbDtlRRbu5ZFjiCQ5KjPWeZFcIe47inEb3 baKpgXNUBWThIH1wvhTaxsuwHs5nXYTkNE3qVv5cJKOgNJZqUpE2WZXPTN1TUOTaSLFyxYWwMREhKFAF AZ1FCFgxZBX5NOBydpDqfEWlYShvZP4MSPGcnvRuJYigPNPDUZy+Cq2XWM0hx6RuCKrhWSRzXX2zdp1M OTjOVsLtU0A8cGFgK8X9LYxkFd5EWRIjKMKxDWTqPV PZZZuqWO7TJS1cgzY5TO0JhUJhNQZoQZDztOKsNIf7Y24fjKBlRJhfHH3XYEE+Fady+Lh1JXNHkQPDgQM IcZeVyWVRIXvBgY7EsV2MGr7JwP5GmCN50bOwawqJqENlxGZ9JGA7uDMZzRFMPLW9AjRQqbJ2xviLsJm ByXPMHHtWuQ97blQHdOQRtGBG0TURrGe9XTSAzV9Xh uqKqbZidemSwLQUlXPYNYY4ASEpqfrEuyMPteGgcPP25rQtaHE1OMl7HKpYpME6bcx4UbCLtNs2TVKGo HI2EIWHrHWZdEQReNGF5GRJkBlTmRYzjTQTsVOYaHFT8UETkZDXoBK0HIyOjYFCmBPC9CCNwJUOhUFLi vs8PYSAgLKBpIpO4SYMuRUAgVQViCKzmCKBaVBBoUF P5BIGgRLBtJV4NMgXrQXOwLKN6FWMfNJAdVVLuua0NGJJmADNeNFm2UDBtXRLuQQNpAFrwNPSrZYBeJL D6SCOrHIDcRY8GGcLvNGVhTFUdFPExCLKlJTFfdf4FHKItYRKrGiMyOGPwBJIwHXBvIDggDDMaGJA9EF c6YNFqCZYcFH4EXhIsKDPaJFTpZTJyIXDkSUAqhe4U QTWgXHQrFIQ1JtUlJLWwKIKoTQsvFSJgOIT2UJE9LNYjSRNrKS5SWwFyULPgIXO9YeBqSNChJPOehk7D LJInMUKcVVooMvYtUSTvMSGoYJowLFGsYOR7NhB4DDJoTXBuLJ9DHjYsSVRrJYh7PdumJVIeVZSfbh5A JNVlMZKmCkc9TZZcXCUsQMPmEZurNVUdVAQ4HYg9OV UeINEaPE0SPeHqYMxnVPIDUvs2HNmyL0e0GERnHT7SJ2Xty3JuAGwvHHROXFxoJJ4rapAdNDWyOz6GG0 wDWivxBOgpMpZzWwO7MGJzLCE1D6T4McB5YESeMfBvIkl5AH6lYVHkFDPhIRUnCZs1W0L5ErnlPxdwBO U0IOC9LEYgVlG6FzJdXX4PAl3FJvJ9PKO8lHHwXv6TETJfVl3UUIGCS9YTHq== ID Date Data Source [id number] 06/14/2020 01:04:05 PM EDT [facility] XR THORACIC SPINE AP AND LATERALFINAL RE SULTInterpreted by:Abimael Montoya MDThoracic spine radiographsINDICATION: Upright films in TLSO brace to evaluate alignment. Known T11 fracture.COMPARISON: CT thoracic spine dated 06/12/2020.FINDINGS: Frontal and lateral views, including swimmer's view, were obtained in the sitting position and with patient in a TLSO brace. Again, there is mild anterior wedge deformity to the T12 vertebral body with subtle superior endplate deformity/irregularity to the T11 vertebral body. Spinal alignment is maintained. No subluxation identified. There is moderate multilevel thoracic spondylosis with anterior osteophytosis and annular calcifications. A mild thoracic kyphosis is noted.Nonacute fracture deformity to the left posterior ninth rib is noted. Previously identified fractures of the left posterior 10th and 11th ribs are poorly visualized and obscured by TLSO brace.IMPRESSION: Mild anterior wedge deformity to T12 with subtle superior endplate deformity/irregularity to T11 vertebral body in keeping with nondisplaced fracture. Spinal alignment is maintained; no subluxation. Multilevel thoracic spondylosis as above.This document has been electronically signed by Abimael Montoya MD on 06/14/2020 1:02 PM Name Value Range Interpretation Code Description Data Laura rce(s) Supporting Document(s) ID Date Data Source [id number] [facility] Code Description Data Laura rce(s) Supporting Document(s) Ammonia [Moles/volume] in Plasma 33 umol/L 16-60 [facility] ID Date Data Source [id number] 06/14/2020 10:20:41 AM [facility] Name Value Range Interpretation Code Description Data Laura rce(s) Supporting Document(s) Osmolality of Urine 510 mosm/kg 300-1000 [facility] ID Date Data Source [id number] 06/14/2020 10:50:34 AM [facility] Name Value Range Interpretation Code Description Data Laura rce(s) Supporting Document(s) Sodium [Moles/volume] in Urine 32 mmol/L [facility] Confirmed ID Date Data Source [id number] 06/14/2020 04:34:20 AM EDT [facility] Name Value Range Interpretation Code Description Data Laura rce(s) Supporting Document(s) Leukocytes [#/volume] in Blood by Automated count 6.8 10*3/uL 4-10 [facility] Erythrocytes [#/volume] in Blood by Automated count 2.46 10*6/uL 4.6- 6.1 L [facility] Hemoglobin [Mass/volume] in Blood 8.3 g/dL 13.5-18 L [facility] Hematocrit [Volume Fraction] of Blood by Automated count 24.8 % 4 1-53 L [facility] Erythrocyte mean corpuscular volume [Entitic volume] b y Automated count 100.7 fL 80-96 H [facility] Erythrocyte mean corpuscular hemoglobin [Entitic mass] by Automated count 33.7 pg 27-33 H [facility] Erythrocyte mean corpuscular hemoglobin concentration [Mass/volume] by Automated count 33.5 g/dL 32.0-36.[facility] width [Ratio] by Automated count 16.9 % 11.5-14.5 H [facility] Platelets [#/volume] in Blood by Automated count 52 10*3/uL 150-400 L [facility] Differential cell count method - Blood [facility] Neutrophils/100 leukocytes in Blood by Automated count 63 % [facility] Lymphocytes/100 leukocytes in Blood by Automated count 9 % [facility] Monocytes/100 leukocytes in Blood by Automated count 25 % [facility] Eosinophils/100 leukocytes in Blood by Automated count 2 % [facility] Basophils/100 leukocytes in Blood by Automated count 1 % [facility] Neutrophils [#/volume] in Blood by Automated count 4.32 10*3/uL 1.8-7 .0 [facility] Lymphocytes [#/volume] in Blood by Automated count 0.61 10*3/uL 1.2-4 .0 L [facility] Monocytes [#/volume] in Blood by Automated count 1.71 10*3/uL 0-0.8 H [facility] Eosinophils [#/volume] in Blood by Automated count 0.16 10*3/uL 0-0.5 [facility] Basophils [#/volume] in Blood by Automated count 0.03 10*3/uL 0-0.2 [facility] Nucleated erythrocytes/100 leukocytes [Ratio] in Blood by Automated count 0 /100{WBCs} 0-0 [facility] ID Date Data Source [id number] 06/14/2020 04:55:44 AM [facility] Name Value Range Interpretation Code Description Data Laura rce(s) Supporting Document(s) Phosphate [Mass/volume] in Serum or Plasma 2.7 mg/dL 2.5-4.5 [facility] ID Date Data Source [id number] 06/14/2020 04:55:44 AM [facility] Name Value Range Interpretation Code Description Data Laura rce(s) Supporting Document(s) Bicarbonate [Moles/volume] in Serum 25 mmol/L 22-29 [facility] Chloride [Moles/volume] in Serum or Plasma 95 mmol/L 98-107 L [facility] Creatinine [Mass/volume] in Serum or Plasma 1.09 mg/dL 0.70-1.20 [facility] Glucose [Mass/volume] in Serum or Plasma 148 mg/dL 70-140 H [facility] Potassium [Moles/volume] in Serum or Plasma 3.3 mmol/L 3.4-5.1 L [facility] Sodium [Moles/volume] in Serum or Plasma 129 mmol/L 136-145 L [facility] Urea nitrogen [Mass/volume] in Serum or Plasma 23 mg/dL 6-20 H [facility] Anion gap 3 in Serum or Plasma 9 mmol/L 8-15 [facility] Osmolality of Serum or Plasma by calculation 274 mosm/kg 275-300 L [facility] Creatinine/Urea nitrogen [Mass Ratio] in Serum or Plasma 21 [facility] Calcium [Mass/volume] in Serum or Plasma 8.5 mg/dL 8.6-10.0 L [facility] Glomerular filtration rate/1.73 sq M pre dicted among non-blacks [Volume Rate/Area] in Serum or Plasma by Creatinine-based formula (MDRD) 72 mL/min/1.73m2 >60 [facility] Glomerular filtration rate/1.73 sq M pre dicted among blacks [Volume Rate/Area] in Serum or Plasma by Creatinine-based formula (MDRD) 84 mL/min/1.73m2 >60 [facility] ID Date Data Source [id number] 06/14/2020 04:55:44 AM EDT [facility] Name Value Range Interpretation Code Description Data Laura rce(s) Supporting Document(s) Magnesium [Mass/volume] in Serum or Plasma 2.1 mg/dL 1.6-2.6 [facility] ID Date Data Source [id number] 06/13/2020 03:12:01 PM EDT [facility] Name Value Range Interpretation Code Description Data Laura rce(s) Supporting Document(s) ED Provider Note [facility] DLGPHh1uOcPREiOu47/NOZaxPUJrp7UsDOwfMLp2GCvvCBAyB7MqJDP3qD3nQIM3HBzIGjBxZgErACWr lbm [file] AwMDAyMjQxNCAwMDAwMCBuDQowMDAwMDIyNjIwIDAw KHWiCI8SOqFkGZBnKhTeCDLdFPPsIEMsub5IMYWsJFFdMqR5DGNrFRQbSPOxPTjjVCOmFBQ4KSO5EXGz EQNgOJ7QSrQmZWAlUkIySiTuMYFpGRDbyg0IUEIuJQFkYjc8GlLkOYPgEMFoIQnrWVBfHLWyYUufTQVo KGBcWY1SEkMaUGGbWuXrEtKeGEAcTDHpje6NYLCiPK WyAnL1AUEvGEGbEAVbGUiiOMJdCJW8JdT5FYCmBEKnUN5NMkFzJFObYhf9NgQgPRZqRGEoob4EXOTqBG SyMrMmXZRdPFShRIMlJXusWKHnSQZ6UGP3VUXoLCZmEH6MEwDvLZMeHtj8YpzfSSMeSCRltb3VQXIeGQ YnAEo0QcTuXPUaZUSdLRniACDfBWL9VJU5BPCvGPOi GO2QXfBkSFTjFFSqXWPtXVPyGPVpaa7XTEKqLSB9JHN9LpGhJIVwYNGcLRohUVAgQJYoYqvuDXTlEJOt NG2DKwAyFATaACGhSVWlEXZaSFCssa7JVBHwFUO5KjWcCTQqHYTgJFUjBIkkRNBtNAWyMSQ3PKLyYYMz BK7ZPzNrSXGmUMW3UHDoSUYlAQSycn6GKOVrEUK9Fj XmXHVgCPHuGSUgLOqiLRAnQCCuOfT6OKUpRUDtLJ8RQmImLUZuZYL3BRDkDWJcOXQcwo9JNUUxRXJ9WH GsNvRiDULxHPFzDPbuAALwCMJ9QDQ3SFUyDRNaTH7GTaImEDUgVNR6GGSoBWVgQWRcvb6SQABtJAH3Ua I3WkLuMSJtCCSzLNmyKNFmYDR0FfnpPODxPTJjWM8L DcNkRWBxIGF3IZMiCJNiPIVegl5BUYBsYGI3CxYaCWLiPROfZQTrASsiFJJwIXE3Ahs5FUJeXJVfPX5A YuRaSKJdIOJ1QdXmTAVcYMBvqj6NUXSkJZC2ZbT9SASrZCClIRAeHSbwCOFdYDW7XnD1LDNcKZQgAJ2K OwXbHSNuSNv4IUGpQNIuTLRolt8BMUJdPMV8PeV3Qz YhNWNuTVAgFRpfJHXmTAB1AEGeXPGxCHYkBT3MBbHcCDasPKADMpj6DZlaW2f1BXN1HT3TZ0Gki5AkMM tlNGHHSVkpPG1nceHhOWFiLr5SD9zTYlc0JNDpIVGyTFG8ECD5Z4P1MBQ2FeL9EIJuLvp3PXLrHs3aDD rxDsBrFsTiEYE6GCtoWEEgAMRkEXX7WKVzQbXeRzOd UuVvXT5BGb2MFgY1ETF9wGXjEf1UNZemBWDLXjStBS9VPMq= ID Date Data Source [id number] 06/13/2020 10:29:26 AM EDT [facility] CT HEAD WITHOUT CONTRAST [id number] RESU LTInterpreted by:Livia Perez, MDCT HEAD WITHOUT IV CONTRASTClinical Indication: Encephalopathy status post fall.No previous study for comparison.TECHNIQUE;Serial axial images through the brain were obtained without IV contrast. Coronal and sagittal reformatted images were also obtained.CT technique includes automated exposure control.FINDINGS;The ventricular system and cortical sulci are age appropriate in size, shape, and configuration. The ventricles are midline.No space occupying mass lesion. There is no midline shift or mass effect. The basal cisterns are patent.No intracerebral or extra axial fluid collection/ hemorrhage is seen. Old lacunar infarcts in the left basal ganglia. Craig and white matter differentiation is preserved.The visualized brainstem appears unremarkable. The visualized posterior fossa appears unremarkable.The visualized skull vault bones are grossly unremarkable. No significant osseous abnormality.Visualized paranasal sinuses including the mastoid air cells are clear.Visualized orbital regions are grossly unremarkable bilaterally.IMPRESSION:1. No acute intracranial pathology.2. Old lacunar infarcts in the left basal ganglia.This document has been electronically signed by Livia Perez MD on 06/13/2020 10:27 AM Name Value Range Interpretation Code Description Data Laura rce(s) Supporting Document(s) ID Date Data Source [id number] 06/13/2020 05:14:29 AM EDT [facility] Name Value Range Interpretation Code Description Data Laura rce(s) Supporting Document(s) Leukocytes [#/volume] in Blood by Automated count 7.4 10*3/uL 4-10 [facility] Erythrocytes [#/volume] in Blood by Automated count 2.44 10*6/uL 4.6- 6.1 L [facility] Hemoglobin [Mass/volume] in Blood 8.3 g/dL 13.5-18 L [facility] Hematocrit [Volume Fraction] of Blood by Automated count 24.7 % 4 1-53 L [facility] Erythrocyte mean corpuscular volume [Entitic volume] b y Automated count 101.4 fL 80-96 H [facility] Erythrocyte mean corpuscular hemoglobin [Entitic mass] by Automated count 33.9 pg 27-33 H [facility] Erythrocyte mean corpuscular hemoglobin concentration [Mass/volume] by Autom[facility] 33.5 g/[facility] [Ratio] by Automated count 17.1 % 11.5-14.5 [facility] Platelets [#/volume] in Blood by Automated count 51 10*3/uL 150-400 L [facility] Differential cell count method - Blood [facility] Neutrophils/100 leukocytes in Blood by Automated count 68 % [facility] Lymphocytes/100 leukocytes in Blood by Automated count 6 % [facility] Monocytes/100 leukocytes in Blood by Automated count 24 % [facility] Eosinophils/100 leukocytes in Blood by Automated count 2 % [facility] Basophils/100 leukocytes in Blood by Automated count 0 % [facility] Neutrophils [#/volume] in Blood by Automated count 5.02 10*3/uL 1.8-7 .0 [facility] Lymphocytes [#/volume] in Blood by Automated count 0.46 10*3/uL 1.2-4 .0 L [facility] Monocytes [#/volume] in Blood by Automated count 1.77 10*3/uL 0-0.8 H [facility] Eosinophils [#/volume] in Blood by Automated count 0.11 10*3/uL 0-0.5 [facility] Basophils [#/volume] in Blood by Automated count 0.02 10*3/uL 0-0.2 [facility] Nucleated erythrocytes/100 leukocytes [Ratio] in Blood by Automated count 0 /100{WBCs} 0-0 [facility] ID Date Data Source [id number] 06/13/2020 05:26:25 AM EDT [facility] Name Value Range Interpretation Code Description Data Laura rce(s) Supporting Document(s) Bicarbonate [Moles/volume] in Serum 25 mmol/L 22-29 [facility] Chloride [Moles/volume] in Serum or Plasma 97 mmol/L 98-107 [facility] Creatinine [Mass/volume] in Serum or Plasma 1.30 mg/dL 0.70-1.20 [facility] Glucose [Mass/volume] in Serum or Plasma 149 mg/dL 70-140 [facility] Potassium [Moles/volume] in Serum or Plasma 3.5 mmol/L 3.4-5.1 [facility] Sodium [Moles/volume] in Serum or Plasma 134 mmol/L 136-145 [facility] Urea nitrogen [Mass/volume] in Serum or Plasma 28 mg/dL 6-20 [facility] Anion gap 3 in Serum or Plasma 12 mmol/L 8-15 [facility] Osmolality of Serum or Plasma by calculation 286 mosm/kg 275-300 [facility] Creatinine/Urea nitrogen [Mass Ratio] in Serum or Plasma 22 [facility] Calcium [Mass/volume] in Serum or Plasma 8.9 mg/dL 8.6-10.0 [facility] Glomerular filtration rate/1.73 sq M pre dicted among non-blacks [Volume Rate/Area] in Serum or Plasma by Creatinine-based formula (MDRD) 59 mL/min/1.73m2 >60 L [facility] Glomerular filtration rate/1.73 sq M pre dicted among blacks [Volume Rate/Area] in Serum or Plasma by Creatinine-based formula (MDRD) 68 mL/min/1.73m2 >60 [facility] ID Date Data Source [id number] 06/13/2020 05:26:25 AM [facility] Name Value Range Interpretation Code Description Data Laura rce(s) Supporting Document(s) Magnesium [Mass/volume] in Serum or Plasma 2.5 mg/dL 1.6-2.6 [facility] ID Date Data Source [id number] 06/13/2020 05:26:25 AM [facility] Value Range Interpretation Code Description Data Laura rce(s) Supporting Document(s) Phosphate [Mass/volume] in Serum or Plasma 2.9 mg/dL 2.5-4.5 [facility] ID Date Data Source [id number] 06/12/2020 08:59:14 PM EDT [facility] Name Value Range Interpretation Code Description Data Laura rce(s) Supporting Document(s) Bicarbonate [Moles/volume] in Serum 27 mmol/L 22-29 [facility] Chloride [Moles/volume] in Serum or Plasma 95 mmol/L 98-107 [facility] Creatinine [Mass/volume] in Serum or Plasma 1.43 mg/dL 0.70-1.20 H [facility] Glucose [Mass/volume] in Serum or Plasma 237 mg/dL 70-140 [facility] Potassium [Moles/volume] in Serum or Plasma 3.1 mmol/L 3.4-5.1 L [facility] Sodium [Moles/volume] in Serum or Plasma 132 mmol/L 136-145 [facility] Urea nitrogen [Mass/volume] in Serum or Plasma 31 mg/dL 6-20 [facility] Anion gap 3 in Serum or Plasma 10 mmol/L 8-15 [facility] Osmolality of Serum or Plasma by calculation 288 mosm/kg 275-300 [facility] Creatinine/Urea nitrogen [Mass Ratio] in Serum or Plasma 22 [facility] Calcium [Mass/volume] in Serum or Plasma 8.3 mg/dL 8.6-10.0 L [facility] Glomerular filtration rate/1.73 sq M pre dicted among non-blacks [Volume Rate/Area] in Serum or Plasma by Creatinine-based formula (MDRD) 52 mL/min/1.73m2 >60 L [facility] Glomerular filtration rate/1.73 sq M pre dicted among blacks [Volume Rate/Area] in Serum or Plasma by Creatinine-based formula (MDRD) 60 mL/min/1.73m2 >60 L [facility] ID Date Data Source [id number] 06/12/2020 06:33:16 PM [facility] Name Value Range Interpretation Code Description Data Laura rce(s) Supporting Document(s) History and Physical [facility] AIMQHa7aVtTOUbGl19/DZVivMPEti1EjVLwcXJt8VPhuUUPcB5SiNKR4tD7hWPS0GYuZJiTwQgRbXGMg lbm [file] ICAgICAgICAgICAgICAgICAgICAgICAgICAgICAgICAgICAgICAgICAgICAgICAgICAgICAgICAgICAg PIJkNEHiNZPgVLHlROLcOMXtMFIlVHSuEA2XQYPrIFOjAPVxZQIcSGDwBJGwJTCfAUCoEMEjZZZoOLBi ICAgICAgICAgICAgICAgICAgICAgICAgICAgICAgIC RqNAKqLWLpXTMiRRWqXLRyCTBfRJUiUXMnREHoPFBkZBIdDZ5JENRbMLPxKIVgWAJjZRCoUEDaIVOgVO AgICAgICAgICAgICAgICAgICAgICAgICAgICAgICAgICAgICAgICAgICAgICAgICAgICAgICAgICAgIC BzUMUiUCQrHZGlZAQeTJNzIQ7AJRPbTREmDHRqIZFy ICAgICAgICAgICAgICAgICAgICAgICAgICAgICAgICAgICAgICAgICAgICAgICAgICAgICAgICAgICAg PXCfSDVnDSBqBPFgYZCcHPBrOJDeTJWvYLErMJ5NLGUtBQGbEMIiQNKjIZQzJYCjWLAzSXVnIQBmVFVe ICAgICAgICAgICAgICAgICAgICAgICAgICAgICAgIC XlLQBtXEKrTYLiKKIgEKAmUVOzAHZcFQNfXZUeXWEaAMRfXMXmDG7AMQNmDHLoXZEoTZWzWMCbKZYuAM AgICAgICAgICAgICAgICAgICAgICAgICAgICAgICAgICAgICAgICAgICAgICAgICAgICAgICAgICAgIC NuIQNmVHXoBXQrPMNzJFDmHSOeMO0UHNQtNILzTVBh ICAgICAgICAgICAgICAgICAgICAgICAgICAgICAgICAgICAgICAgICAgICAgICAgICAgICAgICAgICAg BNDaJEEoWXTrWMWoQMFvYBRbECWjARRpSTWbJOUrYW1RXGDzJCFnHRDeXJJeBYCrQFViKDLlVCOqNXUt ICAgICAgICAgICAgICAgICAgICAgICAgICAgICAgIC QiEKKwOOPxCTMpMDMkYZBlONGzEILeIAInAQQgSMAyULDuWKHzHKCjAT6EPNTqQDNqTIJdBUIrAFUxRN AgICAgICAgICAgICAgICAgICAgICAgICAgICAgICAgICAgICAgICAgICAgICAgICAgICAgICAgICAgIC BbRTYnBSZuVHUpALGbKJLbYQSwRGSlKL1TKHQePSVv ICAgICAgICAgICAgICAgICAgICAgICAgICAgICAgICAgICAgICAgICAgICAgICAgICAgICAgICAgICAg FZWhSUSuNEDaXSUmVXToKPEwKESuKIVnCEJnWGLqVQZeJY4DOM33lFLhi4W3SEFgRA8nnph/Jm4HNPex tdSelIFuME6PLnVtZY1acp4LUhAaVH1kfd0SUXfGWb VtW8X7aIGzHWZhRJILUoMfD97wQCfxKy54OQnuVOEfJfMjJUq4Bu4KTyGgY1imJZDbEbK8YQRgDgM6UH HbKhM1MIFkLlLoUNDjIPMgRNGbADAHEWZ0ARVtPaEiTJziPF3Ou9CifKZ2XEq+Lv1NUQ0xj7HdJGmeFS UyGH9nli4IOQeFWwAlM3HhpuV8VHD9UZGgBi3EIBOn IJOteHGbCPYuMEOBDxEdB7PwrJ53WIXIXq4+LVayxdSgNewCQnP2OSYvq4WdATt3RZ6KWXGkLCm6eKZr SPHYQBP9HGAnTS7gCiYIvDHgSHEfMIQUVFLfxYU4BpZyGiMuHzReWXg8WTLoQU0tMAjnNV7PCAL9QUkm HDKlLRLaH0iPOmQhACUfJaVzbXavKM3FPfYaK4Uswp VudCAzOCAwIFINCj4+FMsygyBdUpvDLmHdPRIrz4XsLSv4CQ4OCSLbFBvmIN6MQOHthC3wCEduWW8XGu VyLmQwYDAXSeZaQ60teXHdUQi8L0JwUhTnODUjDrhaRXOiUAxiZjJtUYQuGhAtJOcnCY1+ID4+DQogIC 9TGUamhhIiDNVzZq2KEOBcRUBpTP1gOVTaKFLcV5O2 iYcgGAGABmYmS6msomvmJP4ePPExC675zIyuuzFwESL8IJMkGu5CRGTaOLE7RJMkmWIlElnbBAVVARmy AI2FkXZmQXC6hH4cLHtbROBdBXFiR2oCMqDcnUxeVX01xAitixFwiZVkJUj+Px9FKM2qh2EgPKo8vdPw SKbeGMXfIUblZZHnTYGiDIIwWLA7RFE5ZYESYvYkLB JpJNDvZOkeHCCoNNUggi4ZFDXjAKCtGFU9ZRClKVRuNMPrWAzfOMRaTUZ0XLAfCMHzXJPbKF9ZUrKmVB ClQYDbZCnnFGGsIVZzci4QACPiFRTlHtK0PfXwZFFsHVBlGXkaUIDbVXYzUpw6GIZiASClDT3AGvRvRB FrKIv3MfEeJAMyOQMxkh5ALVHcEAJbMnE0ZoAdSRVr VOWkVWcqYTWpUZMaFnK1CJRxYWSvIT5XPzNrSTQqOTD1JdDdCRFwANUsok9GEHBaLPFhOKW2IDEmLOZl VUEsRHadLTIiULU2BuJ5JIHnACQvXS3CAiLqJQEuNTy4RJRkEDAuJJJqbp1DSUQaXKEhMEDyNLXwFXMt IMFoGCxqGOPaBET7SRJrJLXdUGNnPI5KRkVmKXNwXC mqBPcePONwWEClxk2FDLRfGOPgLNLxVkNqEONjTSNaGFdrKTAqRTMxFjR1XSZwFDJzGY0FRrZdEFCdPd JoMHnxTCJhXMXgju1PGWEbKLVtZUO9BnXxMJLxFRRvWWruWLUcWXAcOTQ0DATvFLXxQL9LDnCpROGmZp E2QVFpCGThDDQqfh0WROHwIDKlOndqZKKjZPYhTMKj PMjoCTYlAFQeFOV1UMLcDVEyGC0XLfAcUVJnRyZtALVdKYGzVBZcps6AOTKcZEJyCWU7ELYbUCObFKLm JSulRJLcPQJ1PwTqSCXjTOZmRA7MSgZtDNVcLbY8MsLpLTAvQWWvna9JIVJcFVWqXDvfNTCfKZAlUQIs ZWcmXVXcDLU8THJ3ULJiNZMsGI6HViMcKUToPaZkCV oaSSJqJXBqvb2CTMDiCYLcIvI2PcLhBJWnDVLzVMjwUEVrNUO1MfRjKQGiZUOqKB0AGfFvWHIqPge6Yv LeWPUtHBJhxx0QDVNcPFWmOxq1IQLzGOJkVETmFYckPEFcDKL7ELUeLMSyHXLoRO1LYaNgIIEcPoq3LM DbYGJkCFPzyo9HQHItHRGfXFa5XaBpGLHuLAJwNHvt YKMiAZItOIJhKXFvXNGiMU7HTlFrYEZxFUYgUiBaVZXvMKEuhq6QpAYjeLntzk5OXVpEYu6PnHwoFNXs ELnbJn0avOI0KIBuLZGSYd9IfoObKIWqEJCJTVnhTEIwJQO6F6B3KFEnM2N5XNUtPnZfBtS9OBUmXDBw MMWjQVTtOnC3YvX9KRA8CKOyMLKpPKXsPoDlQaPvQr IqSWTlVEG0LDI+HY9mOUr+Sz4Ej8MdhrB1pjHzJYy0YJCpLG3MGTADR5PLPw== ID Date Data Source [id number] 06/17/2020 01:38:34 PM EDT [facility] Service Cmnt XXX-Imp : NoneGram Stn XXX : 2+WBC'S Seen.No organisms seenSpecimen concentrated prior to staining.Microorganism XXX Cult : No growth 5 days Name Value Range Interpretation Code Description Data Laura rce(s) Supporting Document(s) ID Date Data Source [id number] 06/12/2020 03:52:30 PM EDT [facility] Name Value Range Interpretation Code Description Data Laura rce(s) Supporting Document(s) Albumin [Mass/volume] in Body fluid 0.8 g/dL [facility] (NOTE)The performance characteristics of this test for this specimen typewere determined by the Department of Pathology at [facility] and approved by the [facility] Department of Health. It has notbeen cleared by the FDA. ID Date Data Source [id number] 06/12/2020 03:52:30 PM EDT [facility] Name Value Range Interpretation Code Description Data Laura rce(s) Supporting Document(s) Triglyceride [Mass/volume] in Body fluid 26 mg/dL [facility] (NOTE)The performance characteristics of this test for this specimen typewere determined by the Department of Pathology at [facility] and approved by the [facility] Department of Health. It has notbeen cleared by the FDA. ID Date Data Source [id number] 06/12/2020 03:52:30 PM EDT [facility] Name Value Range Interpretation Code Description Data Laura rce(s) Supporting Document(s) Protein [Mass/volume] in Body fluid 1.8 g/dL [facility] (NOTE)The performance characteristics of this test for this specimen type were determined by the Department of Pathology at [facility] and approved by the [facility] Department of Health. It has not been cleared by the FDA. ID Date Data Source [id number] 06/12/2020 05:32:47 PM EDT [facility] Name Value Range Interpretation Code Description Data Laura rce(s) Supporting Document(s) Color of Body fluid [facility] Appearance of Body fluid [facility] Erythrocytes [#/volume] in Body fluid by Manual count 9 /uL 0 H [facility] Cell count panel - Body fluid 57 /uL <200 [facility] Microscopic observation [Identifier] in Body fluid by Other stain [facility] Cell count and Differential panel - Body fluid [facility] Neutrophils/100 leukocytes in Body fluid by Manual count 20 % < 25 [facility] Monocytes+Macrophages/100 leukocytes in Body fluid by Manual count 19 % [facility] Lymphocytes/100 leukocytes in Body fluid by Manual count 49 % [facility] Other cells [#] in Body fluid by Manual count 12 % [facility] ID Date Data Source [id number] 06/12/2020 01:26:02 PM EDT [facility] Name Value Range Interpretation Code Description Data Laura rce(s) Supporting Document(s) [facility] NWCRXr3yWgIELrKyg1HlKnZxSHWhNB4mnus5N8Q3nKYjK7JjmCUke4rrK6EwE7AaKYPvWVEBYP3CiNNj jb2 [file] j/ZsaM+G9my3/8bep2eB5i0U91dG+Saravanan+av8+7j1wv jJCt6VMO4yUcIb9U/4N/a4OniymuedF+ZXP5vf/FrVT3s51xO56jdpIwl8Lw7aV36sakUU/P3A+Qeui/ pi/sr8zk+d27ipfy/Vhn1Fg6/by9htdw+sfou9d8K7vcCR+c6JsXCAYdU2P9R/anT4mc2ts81p3E9lUV I38SvKvDO0sZuyLqrb1L4ZL0/5zvN/5dew0ec/v+aq 98ZqaQ2/qa/leuSjr/zolrMG+k/F2WXoP52rbyGNR38Z8U+ca/4q/+bUN+0i663Lghn2vlvbh73u97+q HDc+OX818+8FtctDoc96g+NZy/xyz2YGo98FM/17I69qWUjYUK/9UaFeqayf73VS+7vY+r6wA80kB1s4 VWWD3+B3+JGvZsAfNz/M+/w7vqFFjmx7hI995H6k5z Li2WA9Sft/1wO/wC/wK/zIY8weO/jx/F14/d39jdotpdl5AHT+Cf+Ef8GP+i7UN/ZJqbHzwOP6BR6W/8 4/637px3wHx6sb8d7+hz/gx/NoD/jx+950yfLYQm9z3JqLcNHRG/7c+vpz87M/V0/6c+c3/Ln62Z+rnz 472AzD8+G/419/7vjXnzv+9eeO9/0Z8E/4J/wL/jte 3CNOwz3M4rmhepqZ4Xy5181Rv70mjuGc42kkjCs+0b182ngLwdYD5/pIIae8yb+9ZfgH/AP+Cf+Ef8G/ 4N+47v6O+drbF13g+AX+S264Lwho2pF2Yo/Bj/hnpp49k+C6A/4B/4R/wn/kj2FRcBQhSs++v4vd+Wc3 /I4Z38rI/jv/1Aatu37v6sA48gxjqH+py4o09SPNIp i4kCCnSsJIS1338IDCSpm5wGq+UaXPC4OX/45/XaoGOv4F4I6o/itSri52tgRGD/6Af8A/4J/wT/gX/A v+Df+dj/A153XsE/bmrgNktU4F9Zx/mGWD3+VWnIW9hDqg52U9tBk18Ev+2Lndi9Bh7sfJvRr3vHb6jp AtX/+868788u3CSrVX+NGex31/dFYNv/5v9Mr5F13n LcN/3x+dBcPfcyI/y9DuWLgVCxwB/gX/hv/OP/nE3twEviA+0Oed3/S38db43DRKLH3U10Vaf/nRf/F+ 0OcdL/gcuM8J/4R/wb/g3/Cjvpi/8oXfN/CNSwahtcUEmIoK6cCDyi2Ag8go3nga4PvsaG7lSX6Qcwfy jb0gRrRlSfeUoadNWt8G336B+o0ux920Ef5+yz3Pvv OxZ+0jhMugdr0B4vcy9T87p0PS/n7LDr/DH/AH/AP+Af+p713w+y0v+Bf8G+fZ3/Etqn94IQ/Bq90onM RhI46UPPQ1jD3robw5isxH/0wbzrq1706mcn+9yMw31s/u/YRF9MegT9g8s/9U55q0r+2gF6nywf5Ivz +jkJufQ+64TRCno37l9w7bWk4D/iN2RFV3tO/ulnEW 7D1f1Kx4ohF4VrYIidy/4Hoig1k2K6+n/q5MC78gqOlkC9/1qW+ovK81xv7313t+1pr8327SR5Od+/yN 1Fe7yt/4pFv8M1e8z/b0qIj9VF2/5ydD7/ns2N4ieR80X7X9mbI25cbMS90j6XcmX8+eAtcra2t9Qp5Q it9XUV+64evn4H7KmdKaiL+N6zy0zJ4uJ1q7s96g+z d/UIY/4A/4B/vsFMqs73F8WcM/4F/wb/w78W55hh9ubBdy+y0L/Ke+nn9/7etF0Ul9VL6R2+EP+AP+Af +A/6A0R4VimzWKT/wL/g3/zg4ta89ut//Gr2jNbWSqzQkV+y0r/Ar/qW/+I/TZI83mx1JE871ru9/mvs 7m412g+s97zcbsI/BP+Tj7b075weHgl/q08gx5dms8 d8SdV7pGb27zEFLdX+XfnHyV+tLep95Afz/+xTJunaTx4E/4gpfPP6+95Qn/yVeZK46++pbh3/Dv6z/6 6luGX+AX+BX+U9+ot03I8riKDOukD23+OOtqR+0kvIkYuqpK4tvgxup+Af+Af8J/6lvnXDj/gn/Dv6// 0Vn1q3Sv1j0U5lq1nhc7BF+kQf6EaoaC6m7f8edi+H 0Xft+X99hr2947pxtI64/bfo6+saZ70HI8k7Xqqh1rwLmav9z/XF0RsNE97CbPY/516XL404TNxhi+h9 9l9fvUJcg4hbEtqxXe8ZgtXo7I/4J/w7+//wP42e9Yo/ThHL2MLROm9Qhvx8Iwl3/hD/gD/gH/gH/CP+ Ff8C/4N/yor6C+gvrm9+9jZD0XX+ITbLT5IvPILM6U vIC2YhOMXE9VoCU8TrKSUA1XwXR3ClSC4/W2tDijU/RZ+Syq9Os3bAS9GW1A6+F3+AP+gH/Af8cLI/XV W/7qqKHv+oV/a4axwl8G+irXv6W+ynLqq/yu6Ql9nGnxFMyxlkqe/Iq/V2uOnZ66szBK/H7fQGCjD+e5 14MWkUJXv9/r0pS0azgn1/U92hEko4/eGKmvqizwC/ z6zT/Ve71yqhVp/A6/f/TTJI9Kp18pnyz43+dIfVXl+dUJw6/eGKmvnvSf+lZ5w7+manager retail/YZP45gTE89ln [file] k9lR840F352xRCb6ojW/3227cPv/riu231+Vd+dn+B7599+flXn3/3cz4nzk9o41nfj0/33LGjT36/+P zd2z98/eHti+/e3n/5ncaTo74/3ggeCg9j32xymqn0 q/dv796++vqD/9O71y+/+tyPNq6xo687/aF729r7Vq/7+CQU5523/qrq9q3hFv67V/klXt2cDlg7vsbt /fr9Z2//+Nsu80pe2K40G6q5/+mv/8rP7m/g/bN/+s37r94+/nkWs776mS9zuz6/+Jv7H96+/ofXL/Ml tvl2rU/U/u7nl/DCSmV6x92+/ehg2cx5bb372S/evZ 2jruwhL3M2045++yv/aUuw074++ucf/+0Pf/nTD//69i//9fbdH/74x+//8pcfvv/v33217g2Rj/jhj2 ///D/a+ue//ai3M29bzS+8Tqv8p4640P/+39+pBcn0P9xq/30h91589j6Hw69H++A+/39s2Hj+ s3/w/OD4pQ3D5//s5R9nc1tBw00ui3Qket08hXt/sN c9D8Zqxwf+g2qs76pNaUuh1KLd/82w+y1mdQ41S9JnO/+Pzbj19/08g3Q32+/e5gRg44Jd/Jcv/J/1ZJ /+r+5yzfKnL+q2+Yrybzq5+UtB/tWqBdRHg9ImniCo/+x9+//eX7//jhJ1d/raBo8yHr+0d/4otybbHX 4//86gd+8+HtDz/+xw9/+T//9zBt9mvPv4z3sJmzHW 4/v/ph//jh27d//c/Xs//hzz/+/PJ+/t3PLh+XeNg/zomlD639IJ/1syK7IVeqr+Q0l9e0X/rplJ7//p FQd127i/1CyVojs/Oywyttd370+MXHt+//7w///t+bz/Mujp8Ni76/54l8tR6BM5W90p9/+ee//dmvz3 v48vs//uT97p/QT7//z99//+9/+P7Hn/3/KWmTP/z4 8/9/WtS6/vgv//1/rdC06Ef//+mTd+738T8Kjd/48+8/UZaUr+qJ+Ac3//jD7//Xj3/4/pt8Uft8u3qe n//WY43Eb//4L93L0i7/pRrMY973Xf+/y6QpCg3L/f3//QOdtc14098kafdJb8y3zrx7m5FSK+rb+5fQ 2xk6va9+nqW/bez2upu//vDZ+e3oJI7jO4Ir67dUV6 31rq/oqny41a01KH4w/H+3P0DXGuRdYID3bgCaqOoncyZsXewUQZxdIMDfGnl0VL3SuTJeWDQjU0P1YE Ijyl8uPAFwSOWqsXEuVyWgZXZFSP2HfOVbME2JYIy5HYJyWDUwTlRuSSDhvdP6ODSpOQYmSKYzY6Vvhi VudCAyIDAgUj4+YL3dr5SxJzGaGBNqGst1LN8SkUGg NR6QcUGhqN2ylqAdC868jvYqTIFwOkvpl5IxKLsyNWFNZY6TEIA0TCQ6OXSjNi5+OT7ju0NbNiBlXASt Fgd3LB6BaYYof7LbLO9IO3OhIVRcUAHTPJQ2c5QiJOHzagacxwpgJ8XeSAN4fJ9aRXA4EHVrZLomGPLr IFXzMKDuRbJtEDnjKSRrDXEjYZAvTSQmBUw6iXKfEH 4IF6LwZDVmUWZHPDZmjaFtEz1rDZZRJ5eNROWdLVOBQYLnLfJ9KCs6TnfuF0P5ErcyG9KpFF5DH2GwFD BpQXQGBWChdfLwDT6AcmIdiQ8uEJjEHKWQULwZHJkuElM0f80qazOWHBApOGHiKJcyEOXkWXLbMYUjHT JgLNBfAUYpTEAfUH0RH7QaCVNxJNDJKTA6p7FpBAKg ukryfmkjGm0qezYfFcx+PlvfDOSao5LvGLkoQ8V3fJCpC0IiB1RvJT4PmOPeNMagGXFdJORvVYSqE127 bnQgMT4+NZ8rn3MbZrriNLDZDRRsGFWzGKCoYYL6EdUaAWAoUPCgPDIiOjS7QeYvThXYLQLhWTK4GoQ8 KARnFVNvENDdDIbkSFPdDSIaLXYlJADzNCYaMI0bIl AbVDQeXaEbIoeeIBTvRZSpimECJBVqQIEfIAHuPFU1ABGoKNGqHGupLMOeXENdZKO1BBZhDMSkUF3cQe FfYPTtJQNcWjbuXSKgZCFejqSCLSEeSFKwUJN2BdYmULQcLSZuYGtqZRUgHDSbIhy7ZIOvCARzLP4rQn LiBSWhWXC5DQdoJAUvLHZkzoYZUDSoAFAeYWIxMyKx BEZxBQInZRimBYEsDXEzTmXbADRmRYQnPJ9iSsJiGVDsBHQ7GKGrGADkPWKkpeDVQHBwOHFoCVw7CUBu POZyKYMlLFaiDEZbQQLuQJE0JBFvNCIgIE8oVkYpIOIvHFQwTKGlZPSyBNUkzwHVAOOpAWJyYUW2OBAa LCWqGWQuPLinPJBcQWAhWul9YTFqEWXuGR7tCjPjQW MlZKL2SEFzBXIuHSZoeqIJFAUxCRN3ZhkvNHJoGFKuLULnXBvoKTOgXORvBqX8IQNkWDXeEM4lBzUbTA XhHKT6LzGzLTGxJZYedoRTIYInMWLpAEI0DgBzTDIbOSKaUQysCEDfMBPaURVtJYP7RZF0TRKqVtXmAT zeOTXPRDzLQ1UhltTcIzKSO4stSe8aDnAhOOYKW2Cg f3PsHQHsEVHUVu6+HvZ6JLE7wUVtWri0SmVoESliCBDVDs== ID Date Data Source [id number] 06/13/2020 05:11:00 PM [facility] CYTOPATHOLOGY REPORTName: ADDISON ZUÑIGAMRN: [id number] Number: [id number] Date: 06/12/2020 13:22Received Date: 06/12/2020 15:41Physician(s): JOVANA CASTILLO MD DESAI, PARTH D, MBBS Copy To:SEKOU HENRY MDSpecimen(s) ReceivedA: ASCITIC FLUIDClinical History:Ascites./cjsDiagnosisASCITIC FLUID: NO EVIDENCE OF MALIGNANCYComment/cjs/calReviewing Cytotech: ANANYA Barry(ASCP) (IAC)Jorge Villanueva M.D.Electronically Signed By Franco Proctor M.D. 06/13/2020 17:11:38The attending pathologist named above attests that he/she has personallyreviewed the relevant preparation(s) for the specimen(s) and rendered thefinal diagnosis. Microscopic DescriptionThe specimen is composed of mesothelial cells, histiocytes, scatteredlymphocytes and neutrophils./cjsGross DescriptionReceived 45 ml clear yellow fluid. 2 slides prepared bycytocentrifugation. One for Diff Quik stain and one for pap stain./cjsThis report may include one or more immunohistochemical stain results thatuse analyte specific reagents. All positive and negative controls havebeen reviewed by the attending pathologist and are satisfactory. The testswere developed and their performance characteristics determined by [facility] Pathololgy department. They have not been cleared or approved by [place] Food and Drug Administration. The FDA has determined that suchclearance or approval is not necessary. Name Value Range Interpretation Code Description Data Laura rce(s) Supporting Document(s) ID Date Data Source [id number] 06/12/2020 10:47:34 AM [facility] MR THORACIC SPINE WITHOUT CONTRAST [id number] FINAL RESULTInterpreted by:Buster Kathleen MDEXAMINATION: MR THORACIC SPINE WITHOUT IV CONTRAST [id number] INDICATION: T11 burst fx; eval for posterior ligamentous injury.TECHNIQUE: Axial and sagittal T1 and T2-weighted, coronal T2-weighted, and sagittal STIR images of the thoracic spine were obtained on our Siemens 3.0 [employer] MRI scanner without intravenous contrast administration.COMPARISON: CT thoracic spine dated 06/12/2020.FINDINGS: There is no evidence of significant diffusion restriction. There is a very subtle oblique curvilinear T1 dark and T2 and STIR hyperintense signal within the anterior T11 vertebral body along the course of the lucency seen on the thoracic spine CT scan. The remaining portions of the T11 vertebral body do not demonstrate increased STIR signal to suggest marrow edema. There is chronic very mild anterior wedging of T12 vertebral body. There is subtle depression of the superior plate of T11 vertebral body secondary to small Schmorl's node. The remaining vertebral body heights are normal. Multilevel disc desiccation changes are present, particularly mid thoracic spine. There is no spondylolisthesis. No evidence of ligamentous injury.The posterior disc osteophyte complex is present without causing significant spinal canal compromise without evidence of spinal cord or nerve root impingement. Small central disc protrusion is present at T3- T4 with impression upon the thecal sac abutting the thoracic cord without evidence of cord or nerve root impingement. Neuroforamina are patent bilaterall y.Additional small posterior smaller posterior disc bulges are present at T8-T9, T9-T10, and T11-T12 without central canal stenosis, cord, or nerve root impingement.Spinal cord signal is normal. There are no intradural or extradural masses. The paraspinal soft tissues are unremarkable.IMPRESSION: 1. Subtle oblique curvilinear increased T2 and STIR signal along the course of the lucency seen in the anterior T11 vertebral body on the prior CT scan suggestive of nondisplaced fracture. No evidence of ligamentous injury.2. Small central disc protrusion at T3-4 with impression upon the anterior thecal sac without cord impingement.3. Posterior disc osteophyte complex at T8-T9, T9-T10, and T11-T12 levels without central canal narrowing, spinal cord or nerve root impingement.This document has been electronically signed by Livia Perez MD on 06/12/2020 10:45 AM Name Value Range Interpretation Code Description Data Laura rce(s) Supporting Document(s) ID Date Data Source [id number] 06/12/2020 10:32:21 AM EDT [facility] XR CHEST FRONTAL ONLY [id number] RESULTI nterpreted by:Kina Biggs MDINDICATION: Evaluate fluid status.TECHNIQUE: A single frontal view of the chest was obtained.COMPARISON: Chest radiograph dated 06/03/2016.FINDINGS: The cardiomediastinal contours are within normal limits. There is no pneumothorax or pleural effusion. The pulmonary volumes are very low which limits the evaluation. No focal areas of consolidation are identified.Degenerative changes of bilateral acromioclavicular joints are noted. IMPRESSION: Very low pulmonary volumes with no focal areas of consolidation.T his document has been electronically signed by Sami London MD on 06/12/2020 10:30 AM Name Value Range Interpretation Code Description Data Laura rce(s) Supporting Document(s) ID Date Data Source [id number] 06/12/2020 02:18:39 PM [facility] Name Value Range Interpretation Code Description Data Laura rce(s) Supporting Document(s) Hepatitis C virus Ab [Presence] in Serum or Plasma by Immuno assay Non Reactive A [facility] Past or current Hepatitis C infection. S edgarimen forwarded to reference laboratory for quantitative HCV RNA testing. ID Date Data Source [id number] 06/12/2020 01:17:53 PM [facility] Name Value Range Interpretation Code Description Data Laura rce(s) Supporting Document(s) Albumin [Mass/volume] in Serum or Plasma by Bromocresol green (BCG) dye binding method 2.8 g/dL 3.5-5.2 [facility] Bilirubin.total [Mass/volume] in Serum or Plasma 5.1 mg/dL <1.2 H [facility] Calcium [Mass/volume] in Serum or Plasma 8.3 mg/dL 8.6-10.0 [facility] Chloride [Moles/volume] in Serum or Plasma 95 mmol/L 98-107 [facility] Creatinine [Mass/volume] in Serum or Plasma 1.63 mg/dL 0.70-1.20 H [facility] Icteric Glucose [Mass/volume] in Serum or Plasma 157 mg/dL 70-140 [facility] Alkaline phosphatase [Enzymatic activity/volume] in Serum or Plasma 127 U/L 40-129 [facility] Potassium [Moles/volume] in Serum or Plasma 2.9 mmol/L 3.4-5.1 [facility] Results called to and read back by [facility] AT 1317 BY [id number] Protein [Mass/volume] in Serum or Plasma 6.8 g/dL 6.4-8.3 [facility] Sodium [Moles/volume] in Serum or Plasma 132 mmol/L 136-145 [facility] Aspartate aminotransferase [Enzymatic activity/volume] in Serum or Plasma 33 U/L <40 [facility] Urea nitrogen [Mass/volume] in Serum or Plasma 34 mg/dL 6-20 H [facility] Osmolality of Serum or Plasma by calculation 285 mosm/kg 275-300 [facility] Creatinine/Urea nitrogen [Mass Ratio] in Serum or Plasma 21 [facility] Bicarbonate [Moles/volume] in Serum 28 mmol/L 22-29 [facility] Alanine aminotransferase [Enzymatic activity/volume] in Seru m or Plasma 25 U/L <41 [facility] Anion gap 3 in Serum or Plasma 9 mmol/L 8-15 [facility] Glomerular filtration rate/1.73 sq M pre dicted among non-blacks [Volume Rate/Area] in Serum or Plasma by Creatinine-based formula (MDRD) 45 mL/min/1.73m2 >60 L [facility] Glomerular filtration rate/1.73 sq M pre dicted among blacks [Volume Rate/Area] in Serum or Plasma by Creatinine-based formula (MDRD) 52 mL/min/1.73m2 >60 L [facility] ID Date Data Source [id number] 06/12/2020 01:17:53 PM [facility] Name Value Range Interpretation Code Description Data Laura rce(s) Supporting Document(s) Magnesium [Mass/volume] in Serum or Plasma 1.4 mg/dL 1.6-2.6 L [facility] ID Date Data Source [id number] 06/12/2020 11:06:52 AM [facility] Name Value Range Interpretation Code Description Data Laura rce(s) Supporting Document(s) Hemoglobin A1c/Hemoglobin.total in Blood by HPLC 5.8 % 4.0-6.0 [facility] Confirmed(NOTE)<5.7% Average risk of diabetes(ADA)5.7-6.4% Increased risk of diabetes(ADA)>/= 6.5% Diagnostic for diabetes(ADA) Glucose mean value [Mass/volume] in Blood Estimated fr om glycated hemoglobin 118 mg/dL <126 [facility] Confirmed ID Date Data Source [id number] 06/12/2020 10:43:12 AM [facility] Name Value Range Interpretation Code Description Data Laura rce(s) Supporting Document(s) Ammonia [Moles/volume] in Plasma 134 umol/L 16-60 H [facility] ID Date Data Source [id number] 06/12/2020 09:45:16 AM EDT [facility] CT CERVICAL SPINE WITHOUT CONTRAST [id number] FINAL RESULTInterpreted by:Buster Kathleen MDEXAMINATION: CT CERVICAL SPINE WITHOUT CONTRAST [id number], CT LUMBAR SPINE WITHOUT CONTRAST [id number], CT THORACIC SPINE WITHOUT CONTRAST [id number] INDICATION: Thoracic spine fx; evaluate for proximal fracture.TECHNIQUE: Axial CT images of the cervical , thoracic, and lumbosacral spine were obtained without intravenous contrast administration. Reformatted images in coronal and sagittal planes were then acquired using the axial source data. Automated dose lowering techniques and/or adjustment according to patient size were utilized for this examination.COMPARISON: None at our institution at the time of this dictation.FINDINGS:Cervical spine: There is no acute fracture or traumatic listhesis. Multilevel discogenic degenerative changes are present with disc space narrowing, most prominent at C7-T1 level. Multiple small anterior and posterior osteophytes are present. Additionally there is mild facet and uncovertebral joint hypertrophy. There is no prevertebral soft tissue swelling.Thoracic spine: Acute minimally displaced fracture left 10th and 11th ribs. Subtle horizontal lucency involving the anterior aspect of the T11 vertebral body is present. There is chronic appearing mild anterior wedging of the T12 vertebral body. Additionally multilevel discogenic degenerative changes are present throughout the thoracic spine.Lumbar spine: No acute fracture or traumatic listhesis. Multilevel discogenic degenerative changes are present with prominent Schmorl's nodes at the superior end plate of L1 and L5. There is mild facet joint hypertrophy at the lumbosacral junction. Intervertebral disc heights are preserved. Incidental note is made of diverticulosis of the sigmoid colon.IMPRESSION: 1. Acute minimally displaced fractures of the left posterior 10th and 11th ribs.2. Subtle lucency involving the anterior aspect of the T11 vertebral body may represent nondisplaced fracture.3. Chronic appearing mild anterior wedging of the T12 vertebral body.This document has been electronically signed by Livia Perez MD on 06/12/2020 9:43 AM Name Value Range Interpretation Code Description Data Laura rce(s) Supporting Document(s) ID Date Data Source [id number] 06/12/2020 09:45:11 AM EDT [facility] CT LUMBAR SPINE WITHOUT CONTRAST [id number] NAL RESULTInterpreted by:Buster Kathleen MDEXAMINATION: CT CERVICAL SPINE WITHOUT CONTRAST 04267, CT LUMBAR SPINE WITHOUT CONTRAST 17237, CT THORACIC SPINE WITHOUT CONTRAST [id number] INDICATION: Thoracic spine fx; evaluate for proximal fracture.TECHNIQUE: Axial CT images of the cervical , thoracic, and lumbosacral spine were obtained without intravenous contrast administration. Reformatted images in coronal and sagittal planes were then acquired using the axial source data. Automated dose lowering techniques and/or adjustment according to patient size were utilized for this examination.COMPARISON: None at our institution at the time of this dictation.FINDINGS:Cervical spine: There is no acute fracture or traumatic listhesis. Multilevel discogenic degenerative changes are present with disc space narrowing, most prominent at C7-T1 level. Multiple small anterior and posterior osteophytes are present. Additionally there is mild facet and uncovertebral joint hypertrophy. There is no prevertebral soft tissue swelling.Thoracic spine: Acute minimally displaced fracture left 10th and 11th ribs. Subtle horizontal lucency involving the anterior aspect of the T11 vertebral body is present. There is chronic appearing mild anterior wedging of the T12 vertebral body. Additionally multilevel discogenic degenerative changes are present throughout the thoracic spine.Lumbar spine: No acute fracture or traumatic listhesis. Multilevel discogenic degenerative changes are present with prominent Schmorl's nodes at the superior end plate of L1 and L5. There is mild facet joint hypertrophy at the lumbosacral junction. Intervertebral disc heights are preserved. Incidental note is made of diverticulosis of the sigmoid colon.IMPRESSION: 1. Acute minimally displaced fractures of the left posterior 10th and 11th ribs.2. Subtle lucency involving the anterior aspect of the T11 vertebral body may represent nondisplaced fracture.3. Chronic appearing mild anterior wedging of the T12 vertebral body.This document has been electronically signed by Livia Perez MD on 06/12/2020 9:43 AM Name Value Range Interpretation Code Description Data Laura rce(s) Supporting Document(s) ID Date Data Source [id number] 06/12/2020 09:45:11 AM [facility] CT THORACIC SPINE WITHOUT CONTRAST [id number] FINAL RESULTInterpreted by:Buster Kathleen MDEXAMINATION: CT CERVICAL SPINE WITHOUT CONTRAST [address]32[address], CT LUMBAR SPINE WITHOUT CONTRAST 80348, CT THORACIC SPINE WITHOUT CONTRAST [id number] INDICATION: Thoracic spine fx; evaluate for proximal fracture.TECHNIQUE: Axial CT images of the cervical , thoracic, and lumbosacral spine were obtained without intravenous contrast administration. Reformatted images in coronal and sagittal planes were then acquired using the axial source data. Automated dose lowering techniques and/or adjustment according to patient size were utilized for this examination.COMPARISON: None at our institution at the time of this dictation.FINDINGS:Cervical spine: There is no acute fracture or traumatic listhesis. Multilevel discogenic degenerative changes are present with disc space narrowing, most prominent at C7-T1 level. Multiple small anterior and posterior osteophytes are present. Additionally there is mild facet and uncovertebral joint hypertrophy. There is no prevertebral soft tissue swelling.Thoracic spine: Acute minimally displaced fracture left 10th and 11th ribs. Subtle horizontal lucency involving the anterior aspect of the T11 vertebral body is present. There is chronic appearing mild anterior wedging of the T12 vertebral body. Additionally multilevel discogenic degenerative changes are present throughout the thoracic spine.Lumbar spine: No acute fracture or traumatic listhesis. Multilevel discogenic degenerative changes are present with prominent Schmorl's nodes at the superior end plate of L1 and L5. There is mild facet joint hypertrophy at the lumbosacral junction. Intervertebral disc heights are preserved. Incidental note is made of diverticulosis of the sigmoid colon.IMPRESSION: 1. Acute minimally displaced fractures of the left posterior 10th and 11th ribs.2. Subtle lucency involving the anterior aspect of the T11 vertebral body may represent nondisplaced fracture.3. Chronic appearing mild anterior wedging of the T12 vertebral body.This document has been electronically signed by Livia Perez MD on 06/12/2020 9:43 AM Name Value Range Interpretation Code Description Data Laura rce(s) Supporting Document(s) ID Date Data Source [id number] 06/12/2020 09:41:25 AM [facility] Name Value Range Interpretation Code Description Data [facility] rce(s) Supporting Document(s) [facility] XXKUGa4fWlXUOdMd93/UTHwlJLEuh6HrMQxqIKq3HEtjHFNgR2NwDLO1hV0mSOX9RVuUNzZvYcQyACJe lbm [file] AgICAgICAgICAgICAgICAgICAgICAgICAgICAgICAgICAgICAgICAgICAgICAgICAgICAgICAgICAgIC AgICAgICAgICAgICAgICAgICAgICAgICAgICAgICAg ICAgICAgICANCiAgICAgICAgICAgICAgICAgICAgICAgICAgICAgICAgICAgICAgICAgICAgICAgICAg ICAgICAgICAgICAgICAgICAgICAgICAgICAgICAgICAgICAgICAgICAgICAgICAgICANCiAgICAgICAg ICAgICAgICAgICAgICAgICAgICAgICAgICAgICAgIC AgICAgICAgICAgICAgICAgICAgICAgICAgICAgICAgICAgICAgICAgICAgICAgICAgICAgICAgICAgIC ANCiAgICAgICAgICAgICAgICAgICAgICAgICAgICAgICAgICAgICAgICAgICAgICAgICAgICAgICAgIC AgICAgICAgICAgICAgICAgICAgICAgICAgICAgICAg ICAgICAgICAgICANCiAgICAgICAgICAgICAgICAgICAgICAgICAgICAgICAgICAgICAgICAgICAgICAg ICAgICAgICAgICAgICAgICAgICAgICAgICAgICAgICAgICAgICAgICAgICAgICAgICAgICANCiAgICAg ICAgICAgICAgICAgICAgICAgICAgICAgICAgICAgIC AgICAgICAgICAgICAgICAgICAgICAgICAgICAgICAgICAgICAgICAgICAgICAgICAgICAgICAgICAgIC AgICANCiAgICAgICAgICAgICAgICAgICAgICAgICAgICAgICAgICAgICAgICAgICAgICAgICAgICAgIC AgICAgICAgICAgICAgICAgICAgICAgICAgICAgICAg ICAgICAgICAgICAgICANCiAgICAgICAgICAgICAgICAgICAgICAgICAgICAgICAgICAgICAgICAgICAg ICAgICAgICAgICAgICAgICAgICAgICAgICAgICAgICAgICAgICAgICAgICAgICAgICAgICAgICANCiAg ICAgICAgICAgICAgICAgICAgICAgICAgICAgICAgIC AgICAgICAgICAgICAgICAgICAgICAgICAgICAgICAgICAgICAgICAgICAgICAgICAgICAgICAgICAgIC AgICAgICANCiAgICAgICAgICAgICAgICAgICAgICAgICAgICAgICAgICAgICAgICAgICAgICAgICAgIC AgICAgICAgICAgICAgICAgICAgICAgICAgICAgICAg ICAgICAgICAgICAgICAgICANCjw/gDXwT7mukCRvpvC3V0xgZn8ANg5AYX7nn5GbVKUvQAhwqhShFhqT YhTdZZLlVmbNHwi6BEjgWY2HyWKdT0BlI3NfLEnzNL6QVDCdVNGpsEHsHOUoDCLxVxY0KIIcCBwtTG5I aWRzIFsgNSAwIFIgNyAwIFIgOSAwIFIgMTEgMCBSID ChMVSlRzDuBNlwFH3Sp0LagUS6SCw+Ow5TIK2yc2CpBTuxOxKdDD4uvf4NLMqBDvUaK5CqyuG0YYI1IQ RoGq9AGOWuCXAraPPmDzBtYIDBBbXyD7HdzA34UZUDVd4+DIkvsoLwTjlOIeY1RYOum3MhXPx8YE3YWQ VkKLf6oYMgO10pg1FycUOnChcwTjifsMRlAJNZBYOr uKrxckpcqnxeSLEyXNDxRC2jEB3qXGWnWJCbJmRuGYESVY6RDBRvIWAqdVRrKPUyDGHOMG5KYKesJPT7 QJCwixUnlBCbAWjpRO8DZFCkcsYrZtIaHWTRMWv+Be3OEK5er8UkTSkeWKHdDJ1tdb9KDSzOMpXoH8D7 iSCkS6G8TMmlUw1OOKYmFFOeFtLoIZKEHHdpUV9FRR 3nnzA8RP1XnAYuGMZhMGRwhOZcVGm1J92xyNXbJDocNB2AMLV+Fady+Oh0MVSJmSVTaTXIdIyHxMVQPPe YaV2CaR6APu7WwW2UyTC28vArjfeXaOJncRQ4RWJ2tYHTtVMUSNJ3DaJFcdP6yegVoNsYjCJCVJxPlE7 7tpMYcBYRdQCZ2OOTuYa5NQDWsB9RdbdSwpTwbrfVr UOHcVETNZE0NWSrpldKptALnlJzcPM73kScjAP0QSs1FRpOtHJ4kia7UvPVmCb4AYQJlXL2CGGOiAQTr LKNuIZO4NEMwLaMcSJfvTEWuDFQmMRY1LDCnFLJqEI9OAbXoECCwCqF0MdZpPGQtFUZgbf2FIAGzTFZv VZXaQoQcPTHzNUNzLCujLIDgELAbIWY9RNXtBYFeRN 0CPlMoPZGlMFT5YGJqTVSbLLAazk8AMZAkXINfOPKtRRZrYGZwQCGfFWhfMKTaISO1YsZ0VIXeDOCgLY 5YQuThYGIcMHY6GHIpCWSgKHHfyv5NSKQaJQZgBDOyXFWvIZDwLZEsFLdgSHYfBQT1CwS9HJCeCQGrCN 0IKyCmPCVgTCA8CjMpRPOuUMQmyo6OAMCrXSSiYqXq ZkAeCGFuTRUnYUnxPTJuINRhLzIyLMJtLHYgUB1BVbBcKUSaKQZ5UrhbTHVhALRbyc1PNNNsVGJhHXa0 XHAmGBYpIIZjFIqsCJAuOZJ9NZn3OBRoRFJoLT5SEoRbZTLzSTZfZlnqZUDyZTMjik1PMMPhSTOwQyBl ZZMjAABsKNUzKGobZHVuVAH3PuFlXCMrMXDdRK1TFw AnASSiSPP7OJbtARBoBQMcux7WDGZhCYIxDxF2TkIsWZPhJUIpXHqaGDKqUPG1Gpo8KUBxGYEyRN4YTo FyYVPjNLh1PattSWQpNZUsjq5AYUIwNLOhCKpwVeQdOGXpUVIfXBggEHXpEEG7DBE9AJXnGSAdAT1JMg LlEGAbOAqkUVlzZLFvTUHbmf8LWWSkTATbSZF7KzAa LKIuWYFmDRxhDFSdXZNoKLSkPJDyZCDnWG8BMaFbEWHiAoRnJQhoECHuFQHhxo9WNJSwYGOcRSF6ASPn KDCnOVOhRLoxAYAnOGYyDBS4DVSyORGtUR0GTbAaSOQqIuQ2AWsnRCKtCDPfrf0XNWVmSBBxWiIsBhNm BDWvCULsTQtaUGShTDHyDEM6PNSmIJFuCP9RFkBrNN KgHzFmXePrXFZdKOVzny2GPPXkTZPbXYlvAiBuZFFtLCCaEBbvUCUjDBG7Hum7PIDwSNIcOS1VLyMwCX UfIyS5MLBcUGWiUZKhca6XdBSesNznlv8JSYdXSx5OkLwdXJJ2NVixGs6ttTVwYUTpNYRGXc3LcyWbIG BrKDQSYIaqWXYhVKe6IBGhZjDkISA2YHsbBDt2USuf PkLwLuP3GTT1AeT0DyG6PDr1EyHtKjZ8Cya7TRM2YuPcZTJeIXD0MMDqQNjtUif+BL5rNUv+We3Me5Pd scT6seZbAJtfXOP5KZ9PTVRAA7ZAKe== ID Date Data Source [id number] 06/12/2020 08:05:00 AM EDT [facility] Name Value Range Interpretation Code Description Data Laura rce(s) Supporting Document(s) SARS-CoV-2 RNA 2019 nCoV Real-Time RT-PCR: NOT DETECTED [facility] This lab was ordered by [facility] and reported by [facility]. ID Date Data Source [id number] 06/12/2020 09:42:27 AM EDT [facility] Name Value Range Interpretation Code Description Data Laura rce(s) Supporting Document(s) Specimen source [Identifier] of Unspecified specimen [facility] SARS-CoV-2 RNA 2019 nCoV Real-Time RT-PCR: NOT DETECTED [facility] Assay Performed [facility] Patients first test for [facility] Patient employed in healthcare setting [facility] Patient has symptoms related to [facility] When did you start to experience these symptoms [Date and time] [Phen X] [facility] Patient was hospitalized because of this [facility] patient was admitted to ICU for [facility] Patient resides in a congregate care setting [facility] status [facility] ID Date Data Source [id number] 06/12/2020 09:41:13 AM EDT [facility] Service Cmnt XXX-Imp : NoneRespiratory P CR Panel : PCR ResultsMicroorganism XXX Cult : See Labs Tab for 2019 nCoV RT-PCR resultsHAdV DNA QI BRYCE+non-probe : Not DetectedHCoV [id number] Nph QI BRYCE+non-probe : Not DetectedHCoV ITV3CGQ Nph QI BRYCE+non-probe : Not [id number] RNA Nph QI BRYCE+non-probe : Not WpbllzcmISuTWK24 RNA Upper resp QI BRYCE+probe : Not DetectedhMPV RNA Nph QINAA+non-probe : Not DetectedRV+EV RNA Nph QI BRYCE+non-probe : Not DetectedFLUAV RNA Nph QI BRYCE+ non-probe : Not DetectedFLUBV RNA Nph QI BRYCE+non-probe : Not DetectedHPIV1 RNA NphQINAA+non-probe : Not DetectedHPIV2 RNA Nph QINAA+non-probe : Not DetectedHPVI3 RNA Nph BRYCE+non-probe : Not DetectedHPIV4 RNA Nph Q BRYCE+non-probe : Not DetectedRSV RNA Nph Q BRYCE+non-probe : Not DetectedB pert.PT PrmtNph Q BRYCE+non-probe : Not DetectedC pneum DNA Nph Q BRYCE+non-probe : Not DetectedM pneum DNA Nph Q BRYCE+non-probe : Not DetectedB [id number] DNA Nph BRYCE+non-probe : Not Detected Name Value Range Interpretation Code Description Data Laura rce(s) Supporting Document(s) ID Date Data Source [id number] 06/12/2020 02:51:36 AM [facility] Value Range Interpretation Code Description Data Laura rce(s) Supporting Document(s) Albumin [Mass/volume] in Serum or Plasma by Bromocresol green (BCG) dye binding method 3.0 g/dL 3.5-5.2 [facility] Bilirubin.total [Mass/volume] in Serum or Plasma 5.3 mg/dL <1.2 H [facility] Bilirubin.direct [Mass/volume] in Serum or Plasma 3.4 mg/dL <0.3 H [facility] Alkaline phosphatase [Enzymatic activity/volume] in Serum or Plasma 147 U/L 40-129 H [facility] Aspartate aminotransferase [Enzymatic activity/volume] in Serum or Plasma 40 U/L <40 H [facility] Alanine aminotransferase [Enzymatic activity/volume] in Seru m or Plasma 28 U/L <41 [facility] Protein [Mass/volume] in Serum or Plasma 7.5 g/dL 6.4-8.3 [facility] ID Date Data Source [id number] 06/12/2020 02:51:36 AM [facility] Name Value Range Interpretation Code Description Data Laura rce(s) Supporting Document(s) Lipase [Enzymatic activity/volume] in Serum or Plasma 46 U/L 13-6 0 [facility] ID Date Data Source [id number] 06/12/2020 02:51:36 AM [facility] Name Value Range Interpretation Code Description Data Laura rce(s) Supporting Document(s) Bicarbonate [Moles/volume] in Serum 29 mmol/L 22-29 [facility] Chloride [Moles/volume] in Serum or Plasma 92 mmol/L 98-107 L [facility] Creatinine [Mass/volume] in Serum or Plasma 1.58 mg/dL 0.70-1.20 H [facility] Icteric Glucose [Mass/volume] in Serum or Plasma 200 mg/dL 70-140 H [facility] Potassium [Moles/volume] in Serum or Plasma 3.1 mmol/L 3.4-5.1 L [facility] Sodium [Moles/volume] in Serum or Plasma 131 mmol/L 136-145 L [facility] Urea nitrogen [Mass/volume] in Serum or Plasma 35 mg/dL 6-20 H [facility] Anion gap 3 in Serum or Plasma 9 mmol/L 8-15 [facility] Osmolality of Serum or Plasma by calculation 285 mosm/kg 275-300 [facility] Creatinine/Urea nitrogen [Mass Ratio] in Serum or Plasma 22 [facility] Calcium [Mass/volume] in Serum or Plasma 9.1 mg/dL 8.6-10.0 [facility] Glomerular filtration rate/1.73 sq M pre dicted among non-blacks [Volume Rate/Area] in Serum or Plasma by Creatinine-based formula (MDRD) 46 mL/min/1.73m2 >60 L [facility] Glomerular filtration rate/1.73 sq M pre dicted among blacks [Volume Rate/Area] in Serum or Plasma by Creatinine-based formula (MDRD) 54 mL/min/1.73m2 >60 L [facility] ID Date Data Source [id number] 06/12/2020 03:09:33 AM [facility] Value Range Interpretation Code Description Data Laura rce(s) Supporting Document(s) Prothrombin time (PT) 19.6 s 12.5-14.9 H [facility] INR in Platelet poor plasma by Coagulation assay 1.63 [facility] Routine intensity oral anticoagulation I NR is typically 2.0-3.0. Target INR must be clinically individualized. ID Date Data Source [id number] 06/12/2020 04:48:12 AM [facility] Value Range Interpretation Code Description Data Laura rce(s) Supporting Document(s) Leukocytes [#/volume] in Blood by Automated count 10.4 10*3/uL 4-10 H [facility] Erythrocytes [#/volume] in Blood by Automated count 2.53 10*6/uL 4.6- 6.1 L [facility] Hemoglobin [Mass/volume] in Blood 8.9 g/dL 13.5-18 L [facility] Hematocrit [Volume Fraction] of Blood by Automated count 25.5 % 4 1-53 L [facility] Erythrocyte mean corpuscular volume [Entitic volume] b y Automated count 100.6 fL 80-96 H [facility] Erythrocyte mean corpuscular hemoglobin [Entitic mass] by Automated count 35.1 pg 27-33 H [facility] Erythrocyte mean corpuscular hemoglobin concentration [Mass/volume] by Automated count 34.9 g/dL 32.0-36.0 [facility] width [Ratio] by Automated count 16.0 % 11.5-14.5 [facility] Platelets [#/volume] in Blood by Automated count 61 10*3/uL 150-400 L [facility] Differential cell count method - Blood [facility] Neutrophils/100 leukocytes in Blood by Automated count 90 % [facility] Lymphocytes/100 leukocytes in Blood by Automated count 3 % [facility] Monocytes/100 leukocytes in Blood by Automated count 5 % [facility] Eosinophils/100 leukocytes in Blood by Automated count 1 % [facility] Neutrophils [#/volume] in Blood by Automated count 9.40 10*3/uL 1.8-7 .0 H [facility] Lymphocytes [#/volume] in Blood by Automated count 0.30 10*3/uL 1.2-4 .0 L [facility] Monocytes [#/volume] in Blood by Automated count 0.50 10*3/uL 0-0.8 [facility] Eosinophils [#/volume] in Blood by Automated count 0.10 10*3/uL 0-0.5 [facility] Metamyelocytes/100 leukocytes in Blood by Manual count 1 % [facility] Metamyelocytes [#/volume] in Blood by Manual count 0.10 10*3/uL 0-0 H [facility] Macrocytes [Presence] in Blood by Light microscopy [facility] Anisocytosis [Presence] in Blood by Light microscopy [facility] Poikilocytosis [Presence] in Blood by Light microscopy [facility] Polychromasia [Presence] in Blood by Light microscopy [facility] Pappenheimer bodies [Presence] in Blood by Light microscopy [facility] ID Date Data Source [id number] 06/12/2020 10:51:23 AM [facility] Name Value Range Interpretation Code Description Data Laura rce(s) Supporting Document(s) Cobalamin (Vitamin B12) [Mass/volume] in Serum or Plasma 2 11-946 H [facility] ID Date Data Source [id number] 06/12/2020 10:51:23 AM [facility] Value Range Interpretation Code Description Data Laura rce(s) Supporting Document(s) Magnesium [Mass/volume] in Serum or Plasma 1.4 mg/dL 1.6-2.6 L [facility] ID Date Data Source [id number] 06/12/2020 10:51:23 AM [facility] Value Range Interpretation Code Description Data Laura rce(s) Supporting Document(s) Phosphate [Mass/volume] in Serum or Plasma 3.3 mg/dL 2.5-4.5 [facility] ID Date Data Source [id number] 06/12/2020 10:51:23 AM [facility] Value Range Interpretation Code Description Data Laura rce(s) Supporting Document(s) Thyrotropin [Units/volume] in Serum or Plasma 1.640 u[IU]/mL 0.270-4. 200 [facility] ID Date Data Source [id number] 06/19/2020 08:08:27 AM [facility] Value Range Interpretation Code Description Data Laura rce(s) Supporting Document(s) Thiamine [Moles/volume] in Blood 77.3 nmol/L 66.5-200.0 [facility] (NOTE)This test was developed and its pe rformance characteristicsdetermined by [facility]. It has not been cleared or approvedby the Food and Drug Administration.Performed At: [address] [id number] New MD Ph:[phone] ID Date Data Source [id number] 06/12/2020 09:23:14 PM [facility] Value Range Interpretation Code Description Data Laura rce(s) Supporting Document(s) HIV 1+2 Ab+HIV1 p24 Ag [Presence] in Serum or Plasma by Immu noassay Non Reactive [facility] Negative for HIV-1 p24 antigenand HIV-1/ HIV-2 antibodies. Nolaboratory evidence of HIVinfection. ID Date Data Source [id number] 06/12/2020 10:50:22 AM EDT [facility] Name Value Range Interpretation Code Description Data Laura rce(s) Supporting Document(s) Ethanol [Mass/volume] in Serum or Plasma Negative [facility] ID Date Data Source [id number] 06/12/2020 10:50:22 AM EDT [facility] Name Value Range Interpretation Code Description Data Laura rce(s) Supporting Document(s) Folate [Mass/volume] in Serum or Plasma 4.15 ng/mL >4.77 L [facility] ID Date Data Source [id number] 06/12/2020 12:49:00 AM EDT [facility] l Patient: ADDISON ZUÑIGA Rep ort - Phys[facility] [facility]VisitID: [id number] [place] [address] [phone], MRegistration Date/Time: 06/11/2020 16:24 Weight:83.9 kg (S). Height/Length:60 inches (S). BMI:36.1 PAST HISTORYProblems:Hypertension.Cirrhosis. Additional Surgeries:no known surgeries. Medications:Torsemide Oral 20 mg, daily, last dose today.Spironolactone Oral 25 mg, daily, last dose today.Metoprolol Tartrate Oral unk, daily, last dose unk.Pantoprazole Sodium Oral 40 mg, daily, last dose today. Allergies:No Known Drug Allergy. FAMILY HISTORYNo significant family medical history. (Electronically signed by Karla Viveros P.A. 06/11/2020 19:09) Weight:83.9 kg (S). Height/Length:60 inches (S). BMI:36.1 PAST HISTORYProblems:Gastroesophageal Reflux Disease.Hypertension.Cirrhosis. Additional Surgeries:no known surgeries. Medications:Torsemide Oral 20 mg, daily, last dose today.Spironolactone Oral 25 mg, daily, last dose today.Metoprolol Tartrate Oral unk, daily, last dose unk.Pantoprazole Sodium Oral 40 mg, daily, last dose today. Allergies:No Known Drug Allergy. (Electronically signed by Anderson Moreno 06/12/2020 00:31) Name Value Range Interpretation Code Description Data Laura rce(s) Supporting Document(s) ID Date Data Source [id number] 06/11/2020 10:24:00 PM EDT [facility] Name Value Range Interpretation Code Description Data Laura rce(s) Supporting Document(s) COVID-19 NEGATIVE [facility] This lab was ordered by [facility] and reported by [facility]. ID Date Data Source [id number] 06/11/2020 10:45:00 PM [facility] [id number] Name Value Range Interpretation Code Description Data Laura rce(s) Supporting Document(s) COVID-19 NEGATIVE NEGATIVE [facility] Negative results should be treated as pr esumptive and, ifinconsistent with clinical signs and symptoms or necessaryfor patient management, should be tested with differentauthorized or cleared molecular tests.Negative results do not preclude SARS-CoV-2 infection andshould not be used as the sole basis for patient managementdecisions.This is a rapid molecular isothermal nucleic acidamplification technology (NAAT) in vitro diagnostic testutilizing a loop mediated isothermal amplification (LAMP)test with nicking endonuclease amplification reaction(NEAR) intended for the qualitative detection of nucleica amira from the SARS-CoV-2 viral RNA in direct nasal,nasopharyngeal or throat swabs from individuals who aresuspected of COVID-19.Results are for the indentification of SARS-CoV-2 RNA. YgjKEIO-IkO-0 RNA is generally detectable in respiratorysamples during the actue phase of infection. ID Date Data Source [id number] 06/11/2020 08:41:00 PM EDT [facility] TSYSORDER [id number] Name Value Range Interpretation Code Description Data Laura rce(s) Supporting Document(s) URINE RBC 1-3 /hpf 0-3 [facility] URINE WBC 0-2 /hpf 0-5 [facility] ID Date Data Source [id number] 06/11/2020 08:29:00 PM EDT [facility] TSYSORDER [id number] Name Value Range Interpretation Code Description Data [facility] rce(s) Supporting Document(s) URINE COLOR. [facility] URINE APPEARANCE CLEAR [facility] URINE GLUCOSE (UA) NEGATIVE mg/dL NEGATIVE [facility] URINE BILIRUBIN NEGATIVE NEGATIVE [facility] URINE KETONE NEGATIVE mg/dL NEGATIVE [facility] al SPECIFIC GRAVITY,URINE 1.015 1.005-1.030 [facility] URINE BLOOD TRACE NEGATIVE H [facility] PH,URINE 6.0 5.0-9.0 [facility] URINE PROTEIN NEGATIVE mg/dL NEGATIVE [facility] URINE UROBILINOGEN 4 mg/dL 0-1 H [facility] URINE NITRATE NEGATIVE NEGATIVE [facility] URINE LEUKOCYTE ESTERASE NEGATIVE NEGATIVE [facility] ID Date Data Source [id number] 06/11/2020 07:39:00 PM [facility] DATE OF EXAMINATION: 06/11/2020 17:37 EDT CHEST 2 VIEWS HISTORY: Trauma TECHNIQUE: PA and lateral radiographs of the chest COMPARISON: None. FINDINGS: No evidence of focal consolidation, pneumothorax or large pleural effusion.Lungs are clear. Mediastinal structures are unremarkable. No aggressive osseouslesions. IMPRESSION: No focal consolidation. Electronically signed in PS360 by: Kiko Barth M.D. 06/11/2020 19:33 EDT Name Value Range Interpretation Code Description Data [facility] rce(s) Supporting Document(s) ID Date Data Source [id number] 06/11/2020 07:36:00 PM T [facility] DATE OF EXAMINATION: 06/11/2020 17:38 EDT L SPINE W/O IV CONTRAST HISTORY: Trauma TECHNIQUE: This CT exam was performed using the following dose reduction techniques:automated exposure control, adjustment of mA and/or kV according to thepatient's size, and use of iterative reconstruction technique. Standard contiguous axial spiral imaging of the lumbar spine was obtained withsagittal/coronal reformatting. FINDINGS: Alignment and lordosis is maintained. Advanced osteopenia and advancedmultilevel degenerative changes include endplate sclerosis/heterogeneity,osteophytosis, facet hypertrophy, and disc space narrowing. Spinal canal ispatent. There appears to be chronic mild compression deformity at T12. Coronalimages demonstrate acute fracture of the left 11th rib. An acute fracture ofT11 is identified on today's CT of the abdomen and pelvis. IMPRESSION:1. Chronic osteopenia and advanced multilevel degenerative spondylosis.2. Mild nonacute compression deformity at T12.3. Acute fracture of the left 11th rib identified best on coronal images.4. Known fracture of the T11 vertebral body without loss of vertebral bodyheight or associated canal stenosis is identified on today's CT of the abdomenand pelvis. Electronically signed in PS360 by: Kiko Barth M.D. 06/11/2020 19:30 EDT Name Value Range Interpretation Code Description Data Laura rce(s) Supporting Document(s) ID Date Data Source [id number] 06/11/2020 07:28:00 PM EDT [facility] DATE OF EXAMINATION: 06/11/2020 17:38 EDT ABD/PEL NO CONTRAST HISTORY: Trauma. Fall. TECHNIQUE: This CT exam was performed using the following dose reduction techniques:automated exposure control, adjustment of mA and/or kV according to thepatient's size, and use of iterative reconstruction technique. Standard contiguous axial spiral imaging was obtained from the dome of thediaphragms through the symphysis pubis without oral contrast and withoutintravenous contrast administration and with coronal and sagittal reformatting. COMPARISON: 02/08/2020 FINDINGS: There is evidence for cirrhosis with portal venous hypertension and markedascites throughout the abdomen and pelvis. A small to moderate periumbilicalhernia is identified containing fat and ascites fluid. Splenomegaly noted.Cholelithiasis is appreciated. Pancreas, bilateral adrenal glands, and kidneysare essentially normal for noncontrast evaluation. The enteric system is without obstruction or obvious acute inflammatory process.Diffuse colonic diverticulosis noted. There is no evidence for pneumoperitoneumto suggest perforation. Pelvis demonstrates normal bladder and age-appropriate prostate/seminalvesicles. A large left inguinal hernia contains significant amount of ascitesfluid extending into and distending the left hemiscrotum. Old healed left rib fractures are identified and there is evidence to suggest anondisplaced fracture along the posterior aspect of the left 11th rib (series 7;image 52). Lateral images suggest an acute fracture involving the T11 vertebralbody without significant compression deformity or loss of vertebral body height. IMPRESSION:1. Acute fracture along the posterior aspect of the left 11th rib and acutenondisplaced fracture of the T11 vertebral body without loss of vertebral bodyheight or associated canal stenosis.2. Advanced chronic cirrhosis with portal venous hypertension and marked ascitesalong with chronic nonacute findings as described above relatively stablecompared to 02/08/2020.3. No further acute abdominopelvic pathology appreciated. Electronically signed in PS360 by: Kiko Barth M.D. 06/11/2020 19:22 EDT Name Value Range Interpretation Code Description Data Laura rce(s) Supporting Document(s) ID Date Data Source [id number] 06/11/2020 06:38:00 PM EDT [facility] TSYSORDER [id number] Name Value Range Interpretation Code Description Data Laura rce(s) Supporting Document(s) TSH 1.670 uIU/mL 0.360-3.740 [facility] ID Date Data Source [id number] 06/11/2020 06:37:00 PM EDT [facility] TSYSORDER [id number] Name Value Range Interpretation Code Description Data Laura rce(s) Supporting Document(s) MAGNESIUM 1.4 mg/dL 1.8-2.4 [facility] ID Date Data Source [id number] 06/11/2020 06:37:00 PM EDT [facility] TSYSORDER [id number] Name Value Range Interpretation Code Description Data Laura rce(s) Supporting Document(s) TROPONIN I < 0.017 ng/mL 0.000-0.056 [facility] ID Date Data Source [id number] 06/11/2020 06:37:00 PM EDT [facility] TSYSORDER [id number] Name Value Range Interpretation Code Description Data Laura rce(s) Supporting Document(s) CREATINE PHOSPHOKINASE 44 U/L 39-308 [facility] ID Date Data Source [id number] 06/11/2020 06:37:00 PM EDT [facility] TSYSORDER [id number] Name Value Range Interpretation Code Description Data Laura rce(s) Supporting Document(s) LIPASE 132 U/L 73-393 [facility] ID Date Data Source [id number] 06/11/2020 06:37:00 PM EDT [facility] TSYSORDER [id number] Name Value Range Interpretation Code Description Data Laura rce(s) Supporting Document(s) GLUCOSE 192 mg/dL 74-106 H [facility] BLOOD UREA NITROGEN 39 mg/dL 7-18 H [facility] CREATININE 1.72 mg/dL 0.7-1.3 H [facility] SODIUM 130 mmol/L 136-145 L [facility] POTASSIUM 3.0 mmol/L 3.5-5.1 L [facility] CHLORIDE 93 mmol/L 98-107 L [facility] CO2 30 mmol/L 21-32 [facility] CALCIUM 9.1 mg/dL 8.5-10.1 [facility] ANION GAP 7.0 mmol/L 5-12 [facility] GLOMERULAR FILTRATION RATE 41 mL/min [facility] GFR IS CALCULATED IN mL/min/1.73m2 HEIDE L FUNCTION: >90MILDLY DECREASED: 60-89MILDY TO MODERATELY DECREASED: 45-59 MODERATELY TO SEVERELY DECREASED: 30-44SEVERELY DECREASED: 15-29RENAL FAILURE: <15 AST 51 U/L 15-37 H [facility] ALT 35 U/L 12-78 [facility] ALKALINE PHOSPHATASE 145 U/L 46-116 H [facility] pital TOTAL BILIRUBIN 4.6 mg/dL 0.2-1.0 H [facility] TOTAL PROTEIN 7.3 g/dl 6.4-8.2 [facility] ALBUMIN 2.4 gm/dL 3.4-5.0 L [facility] ID Date Data Source [id number] 06/11/2020 06:34:00 PM EDT [facility] [id number] Name Value Range Interpretation Code Description Data Laura rce(s) Supporting Document(s) PARTIAL THROMBOPLASTIN TIME 22.5 SECONDS 21.2-27.3 [facility] ID Date Data Source [id number] 06/11/2020 06:34:00 PM EDT [facility] [id number] Name Value Range Interpretation Code Description Data Laura rce(s) Supporting Document(s) PROTHROMBIN TIME (PATIENT) 15.3 SECONDS 9.1-11.6 H [facility] INR 1.48 0.87-1.06 H [facility] ID Date Data Source [id number] 06/11/2020 06:08:00 PM EDT [facility] TSYS[facility] [id number] Name Value Range Interpretation Code Description Data Laura rce(s) Supporting Document(s) WHITE BLOOD COUNT 11.3 K/mm3 4.0-10.0 [facility] RED BLOOD COUNT 2.41 M/mm3 4.50-6.00 L [facility] HEMOGLOBIN 8.2 gm/dL 14.0-18.0 L [facility] HEMATOCRIT 23.4 % 42.0-54.0 L [facility] MEAN CELL VOLUME 97.1 fl 80-96 [facility] MEAN CORPUSCULAR HEMOGLOBIN 34.0 pg 27.0-31.0 H [facility] MEAN CORPUSCULAR HGB CONC 35.0 g/dl 32.0-36.0 [facility] RED CELL DISTRIBUTION WIDTH 16.3 % 10.0-14.5 H [facility] PLATELET COUNT 60 K/mm3 172-450 L [facility] MEAN PLATELET VOLUME 10.3 fl 9.0-13.0 [facility]ital GRAN % 77.0 % 50-80.0 [facility] IG% 1.2 % 0.0-0.2 H [facility] LYMPH % 5.1 % 25.0-50.0 L [facility] MONO % 15.8 % 2.0-10.0 H [facility] EOS % 0.6 % 0-5.0 [facility] BASO % 0.3 % 0.0-2.0 [facility] GRAN # 8.7 K/mm3 2.0-8.00 H [facility] IG# 0.1 K/mm3 0.0-0.2 [facility] LYMPH # 0.6 K/mm3 1.0-5.0 L [facility] MONO # 1.8 K/mm3 0.10-1.20 H [facility] EOS # 0.1 K/mm3 0.0-0.5 [facility] BASO # 0.0 K/mm3 0.0-0.2 [facility] ID Date Data Source [id number] 06/11/2020 07:30:00 PM EDT [facility] TSYS[facility] [id number] Name Value Range Interpretation Code Description Data Laura rce(s) Supporting Document(s) BLOOD TYPE ABO AB [facility] RH TYPE POSITIVE [facility] ANTIBODY SCREEN NEGATIVE [facility] CROSSMATCH COMPATIBLE [facility] SEE TRANSFUSION RECORD IN LAB[facility] HERMAN FOR TRANSFUSION ID Date Data Source [id number] 06/11/2020 07:03:00 PM EDT [facility] TSYSORDER [id number] Name Value Range Interpretation Code Description Data Laura rce(s) Supporting Document(s) DIRECT BILIRUBIN 3.6 mg/dL 0-0.2 *[facility] ID Date Data Source [id number] 04/05/2020 01:51:00 PM EST [facility] FASTING: UNKNOWNReceived: 04/05/2020 at 03:40:00 QPT: [facility], [address] [place] [address], [address] [place] [address], [phone], Ryan Brown MD Received: 04/05/2020 at 03:40:00 QPT : [facility], [address] [place] [address], [address] [place] [address], [phone], Ryan Brown MD Name Value Range Interpretation Code Description Data Laura rce(s) Supporting Document(s) Glucose [Mass/volume] in Serum or Plasma 142 mg/dL 65-99 Above high normal [facility] Fasting reference intervalFor someone without known diabetes, a glucosevalue >125 mg/dL indicates that they may havediabetes and this should be confirmed with afollow-up test. Urea nitrogen [Mass/volume] in Serum or Plasma 15 mg/dL 7 -25 Normal (applies to non-numeric results) [facility] Creatinine [Mass/volume] in Serum or Plasma 1.04 mg/dL 0.70 -1.33 Normal (applies to non-numeric results) [facility] For patients >49 years of age, the refer ence limitfor Creatinine is approximately 13% higher for peopleidentified as -Somali. Glomerular filtration rate/1.73 sq M.pre dicted [Volume Rate/Area] in Serum, Plasma or Blood by Creatinine-based formula (MDRD) 78 mL/min/1.73m2 > OR = 60 Normal (applies to non-numeric results) [facility] Glomerular filtration rate/1.73 sq M pre dicted among blacks [Volume Rate/Area] in Serum or Plasma by Creatinine-based formula (MDRD) 91 mL/min/1.73m2 > OR = 60 Normal (applies to non-numeric results) [facility] Urea nitrogen/Creatinine [Mass Ratio] in Serum or Plasma NOT APPLICABLE (calc) 6-22 [facility] Sodium [Moles/volume] in Serum or Plasma 136 mmol/L 135-146 Normal (applies to non-numeric results) [facility] Potassium [Moles/volume] in Serum or Plasma 3.3 mmol/L 3.5-5.3 Below low normal [facility] Chloride [Moles/volume] in Serum or Plasma 98 mmol/L 98-11 0 Normal (applies to non-numeric results) [facility] Carbon dioxide, total [Moles/volume] in Serum or Plasma 27 mmol/ L 20-32 Normal (applies to non-numeric results) [facility] Calcium [Mass/volume] in Serum or Plasma 8.9 mg/dL 8.6-10. 3 Normal (applies to non-numeric results) [facility] ID Date Data Source [id number] 04/05/2020 01:51:00 PM EST [facility] FASTING: UNKNOWNReceived: 04/05/2020 at 03:40:00 QPT: [facility], [address], [address] [place] [address], [phone], Ryan Brown MD Received: 04/05/2020 at 03:40:00 QPT : [facility], [address], [address] [place] [address], [phone], Ryan Brown MD Name Value Range Interpretation Code Description Data Laura rce(s) Supporting Document(s) Leukocytes [#/volume] in Blood by Automated count 4.7 Thousand/u L 3.8-10.8 Normal (applies to non-numeric results) [facility] Erythrocytes [#/volume] in Blood by Automated count 3.92 Million /uL 4.20-5.80 Below low normal [facility] Hemoglobin [Mass/volume] in Blood 13.3 g/dL 13.2-17.1 Normal (applies to non- numeric results) [facility] Hematocrit [Volume Fraction] of Blood by Automated count 36.6 % 38.5-50.0 Below low normal [facility] Erythrocyte mean corpuscular volume [Entitic volume] by Auto mated count 93.4 fL 80.0-100.0 Normal (applies to non-numeric results) [facility] Erythrocyte mean corpuscular hemoglobin [Entitic mass] by Automated count 33.9 pg 27.0-33.0 Above high normal [facility] Erythrocyte mean corpuscular hemoglobin concentration [Mass/volume] by Automated count 36.3 g/dL 32.0-36.0 Above high normal [facility] Erythrocyte distribution width [Ratio] by Automated count 14.4 % 11.0-15.0 Normal (applies to non-numeric results) [facility] Platelets [#/volume] in Blood by Automated count 40 Thousand/uL 140-400 Below low normal [facility] Platelet mean volume [Entitic volume] in Blood by Nathalieker 11. 7 fL 7.5-12.5 Normal (applies to non-numeric results) [facility] ID Date Data Source [id number] 02/08/2020 08:48:00 AM EST [facility] DATE OF EXAMINATION: 02/08/2020 7:55 EST TESTICULAR HISTORY: Left testicular pain Real-time ultrasound imaging was performed utilizing B-mode/craig scale and colorDoppler imaging where applicable. Right testicle measures 4 x 2 x 2.5cm, left testicle measures 3 x 1.5 x 3cm.Normal arterial and venous Doppler signal is noted. There is a large fluidcollection superior to the left testicle extending into the left inguinal regionmeasuring 7 x 12 cm. Echogenic calcified 6 mm structure in the right epididymisis seen which may be medical detail representative of calcified granuloma. Similar appearingstructure measuring 0.5 cm also identified. IMPRESSION: 7 x 12 cm fluid collection superior to the left testicle extending to the levelof the inguinal canal as well as 2 echogenic calcified appearing foci of rightepididymis likely medical detail representative of granulomas. These findings warrant urologyconsult. Electronically signed in PS360 by: Stephen Roman M.D. 02/08/2020 8:43 EST Name Value Range Interpretation Code Description Data Laura rce(s) Supporting Document(s) ID Date Data Source [id number] 02/08/2020 08:35:00 AM EST [facility] DATE OF EXAMINATION: 02/08/2020 7:55 EST ABD/PEL NO CONTRAST HISTORY: Chronic hepatitis C TECHNIQUE: This CT exam was performed using the following dose reduction techniques:automated exposure control, adjustment of mA and/or kV according to thepatient's size, and use of iterative reconstruction technique. Standard contiguous axial spiral imaging was obtained from the dome of thediaphragms through the symphysis pubis without oral contrast and withoutintravenous contrast administration and with coronal reformatting. FINDINGS: Lower thorax: Unremarkable ABDOMEN: Liver: Severe liver cirrhosis with microlobulated margins. There is no distinctmass on this noncontrast enhanced study. If there is any clinical concern forhepatocellular carcinoma and MRI or contrast-enhanced CT would be recommendedGallbladder and bile ducts: Nonobstructive stones within the gallbladder lumenPancreas: UnremarkableSpleen: Splenomegaly with the spleen measuring approximately 15.5 cm in itscraniocaudal dimension likely secondary to portal hypertensionAdrenals: UnremarkableKidneys and ureters: UnremarkableStomach and bowel: There is some thickening of the gastric antrum. Neoplasm isnot excluded. Upper endoscopy is encouraged. Sigmoid diverticulosis. There is anarea of mucosal thickening of the sigmoid colon likely secondary to aperistaltic wave. However, if the patient has not had screening colonoscopy onewould be recommended.Appendix: Normal PELVIS: Bladder: Nondistended and unopacified therefore unable to evaluateReproductive: Unremarkable Moderate to severe ascites with left inguinal hernia and moderate to largeamount of fluid extending into the left inguinal canal. There is also a 2 cmumbilical hernia with herniated peritoneal fat and ascites. IMPRESSION: Liver cirrhosis with portal hypertension and secondary ascites and splenomegalyas described above. If there is any clinical concern for hepatocellularcarcinoma and MRI or contrast-enhanced CT would be recommended. Nonobstructive stones within the gallbladder lumen. Left inguinal hernia with large amount of ascites extending into the leftinguinal canal as well as a 2 cm fat containing and ascites containing umbilicalhernia. Moderate pancolonic diverticulosis. There is an area of mucosal thickening of the gastric antrum as well as thesigmoid colon both of which warrant endoscopy for further evaluation. Electronically signed in [id number] by: Stephen Roman M.D. 02/08/2020 8:29 EST Name Value Range Interpretation Code Description Data Laura rce(s) Supporting Document(s) ID Date Data Source [id number] 01/22/2020 07:05:00 PM EST [facility] Name Value Range Interpretation Code Description Data Laura rce(s) Supporting Document(s) Hepatitis C Quantitation HCV Not Detected IU/mL [facility] HCV log10 [facility] Unable to calculate result since non-num karla result obtained forcomponent test. Test Information: [facility] The quantitative range of this assay is 15 IU/mL to 100 million IU/mL. HCV Genotype [facility] Not indicated ID Date Data Source [id number] 11/29/2019 10:00:00 AM EDT [facility] Name Value Range Interpretation Code Description Data Laura rce(s) Supporting Document(s) SARS coronavirus 2 RNA [facility] This lab was ordered by [facility] and reported by [facility]. Procedure Social History Code Duration Value Status Description Data Source(s ) Smoking 12/06/2020 12:00:00 AM EDT Current Smoker completed Curre nt Smoker eCW1 ([facility]) Smoking 12/06/2020 12:00:00 AM EDT Current Smoker completed Curre nt Smoker eCW1 ([facility]) Alcohol intake 12/03/2020 12:00:00 AM EDT Current drinker of al cohol (finding) completed Current drinker of alcohol (finding) [facility] Smoking 10/24/2020 12:00:00 AM EDT Current Smoker completed Curre nt Smoker eCW1 ([facility]) Smoking 10/24/2020 12:00:00 AM EDT Current Smoker completed Curre nt Smoker eCW1 ([facility]) Smoking 10/24/2020 12:00:00 AM EDT Current Smoker completed Curre nt Smoker eCW1 ([facility]) Smoking 10/24/2020 12:00:00 AM EDT Current Smoker completed Curre nt Smoker eCW1 ([facility]) Smoking 10/24/2020 12:00:00 AM EDT Current Smoker completed Curre nt Smoker eCW1 ([facility]) Smoking 10/24/2020 12:00:00 AM EDT Current Smoker completed Curre nt Smoker eCW1 ([facility]) Smoking 10/24/2020 12:00:00 AM EDT Current Smoker completed Curre nt Smoker eCW1 ([facility]) Smoking 09/11/2020 12:00:00 AM EDT Current Smoker completed Curre nt Smoker eCW1 ([facility]) Smoking 09/11/2020 12:00:00 AM EDT Current Smoker completed Curre nt Smoker eCW1 ([facility]) Smoking 09/11/2020 12:00:00 AM EDT Current Smoker completed Curre nt Smoker eCW1 ([facility]) Smoking 09/11/2020 12:00:00 AM EDT Current Smoker completed Curre nt Smoker eCW1 ([facility]) Smoking 09/11/2020 12:00:00 AM EDT Current Smoker completed Curre nt Smoker eCW1 ([facility]) Smoking 09/11/2020 12:00:00 AM EDT Current Smoker completed Curre nt Smoker eCW1 ([facility]) Smoking 09/11/2020 12:00:00 AM EDT Current Smoker completed Curre nt Smoker eCW1 ([facility]) Alcohol intake 09/07/2020 12:00:00 AM EDT Ex-drinker (finding) comp leted Ex- drinker (finding) [facility] Tobacco use and exposure 09/07/2020 12:00:00 AM EDT Never used co mpleted Never used [facility] Smoking 09/07/2020 12:00:00 AM EDT Current every day smoker co mpleted Current every day smoker [facility] Alcohol intake 09/03/2020 12:00:00 AM EDT Current drinker of al cohol (finding) completed Current drinker of alcohol (finding) [facility] Smoking 08/14/2020 12:00:00 AM EDT Current Smoker completed Curre nt Smoker eCW1 ([facility]) Smoking 08/14/2020 12:00:00 AM EDT Current Smoker completed Curre nt Smoker eCW1 ([facility]) Smoking 08/14/2020 12:00:00 AM EDT Current Smoker completed Curre nt Smoker eCW1 ([facility]) Smoking 08/14/2020 12:00:00 AM EDT Current Smoker completed Curre nt Smoker eCW1 ([facility]) Smoking 08/14/2020 12:00:00 AM EDT Current Smoker completed Curre nt Smoker eCW1 ([facility]) Smoking 08/07/2020 12:00:00 AM EDT Current Smoker completed Curre nt Smoker eCW1 ([facility]) Smoking 07/31/2020 12:00:00 AM EDT Current Smoker completed Curre nt Smoker eCW1 ([facility]) Smoking 07/31/2020 12:00:00 AM EDT Current Smoker completed Curre nt Smoker eCW1 ([facility]) Smoking 07/25/2020 12:00:00 AM EDT Current Smoker completed Curre nt Smoker eCW1 ([facility]) Smoking 07/25/2020 12:00:00 AM EDT Current Smoker completed Curre nt Smoker eCW1 ([facility]) Alcohol intake 07/15/2020 12:00:00 AM EDT Ex-drinker (finding) comp leted Ex- drinker (finding) [facility] Smoking 07/04/2020 12:00:00 PM EDT Tobacco smoki ng consumption unknown (finding) completed Unknown If Ever Smoked [facility] Alcohol intake 07/04/2020 12:00:00 AM EDT Current drinker of al cohol (finding) completed Current drinker of alcohol (finding) [facility] Alcohol intake 06/12/2020 12:00:00 AM EDT Current drinker of al cohol (finding) completed Current drinker of alcohol (finding) [facility] Tobacco use and exposure 03/15/2020 12:00:00 AM EST Never used co mpleted Never used [facility] Cigarettes smoked current (pack per day) - Reported 03/15/19 12:00:00 AM EST UNK completed [facility] Smoking 03/15/2020 12:00:00 AM EST Current every day smoker co mpleted Current every day smoker [facility] Alcohol intake 03/15/2020 12:00:00 AM EST Yes completed [facility] Smoking 03/15/2020 12:00:00 AM EST Current every day smoker co mpleted Current every day smoker [facility] Smoking 03/02/2020 12:00:00 AM EST Current Smoker completed Curre nt Smoker eCW1 ([facility]) Smoking 03/02/2020 12:00:00 AM EST Current Smoker completed Curre nt Smoker eCW1 ([facility]) Smoking 01/24/2020 12:00:00 AM EST Current Smoker completed Curre nt Smoker eCW1 ([facility]) Smoking 01/24/2020 12:00:00 AM EST Current Smoker completed Curre nt Smoker eCW1 ([facility]) Smoking 01/24/2020 12:00:00 AM EST Current Smoker completed Curre nt Smoker eCW1 ([facility]) Smoking 01/24/2020 12:00:00 AM EST Current Smoker completed Curre nt Smoker eCW1 ([facility]) Smoking 01/24/2020 12:00:00 AM EST Current Smoker completed Curre nt Smoker eCW1 ([facility]) Smoking 01/13/2020 12:00:00 AM EST Current Smoker completed Curre nt Smoker eCW1 ([facility]) Vital Signs ID Date Data Source UNK Name Value Range Interpretation Code Description Data Source(s) Body mass index (BMI) [Ratio] 30.2 kg/m2 30.2 k g/m2 ISIDORO ([facility], ) Arnold body weight 130 [lb_av] 130 [lb_av] ASHEREN T ([facility], ) Body weight 79.834 kg 79.834 kg [facility] ([facility], ) Body surface area Derived from formula 1.85 m2 1.85 m2 ISIDORO ([facility], ) Systolic blood pressure 131 mm[Hg] 131 mm[Hg] M JASMINE ([facility], ) Diastolic blood pressure 75 mm[Hg] 75 mm[Hg] ISIDORO ([facility], ) Body height 64 [in_i] 64 [in_i] [facility] ([facility], ) 5'4" Body weight 176.00 [lb_av] 176.00 [lb_av] MEDEN T ([facility], ) Body weight 195 [lb_av] 195 [lb_av] eCW1 ([facility]) Body height 65 [in_i] 65 [in_i] eCW1 ([facility]) Body mass index (BMI) [Ratio] 32.45 kg/m2 32.45 kg/m2 eCW1 ([facility]) Heart rate 95 /min 95 /min eCW1 ([facility]) Respiratory rate 19 /min 19 /min eCW1 ([facility]) Body temperature 98 [degF] 98 [degF] eCW1 ([facility]) Systolic blood pressure 123 mm[Hg] 123 mm[Hg] e CW1 ([facility]) Diastolic blood pressure 80 mm[Hg] 80 mm[Hg] eCW1 ([facility]) Systolic blood pressure 106 mm[Hg] 106 mm[Hg] [facility] Diastolic blood pressure 68 mm[Hg] 68 mm[Hg] [facility] Body mass index (BMI) [Ratio] 33.07 kg/m2 33.07 kg/m2 [facility] Oxygen saturation in Arterial blood by Pulse oximetry 99 % 99 % [facility] Heart rate 84 /min 84 /min [facility] Respiratory rate 19 /min 19 /min [facility] Body height 154.9 cm 154.9 cm [facility] Body weight 79.379 kg 79.379 kg [facility] Body weight 195.8 [lb_av] 195.8 [lb_av] eCW1 ([facility]) Body height 65 [in_i] 65 [in_i] eCW1 ([facility]) Body mass index (BMI) [Ratio] 32.58 kg/m2 32.58 kg/m2 eCW1 ([facility]) Heart rate 84 /min 84 /min eCW1 ([facility]) Respiratory rate 20 /min 20 /min eCW1 ([facility]) Body temperature 97.8 [degF] 97.8 [degF] eCW1 ( [facility]) Systolic blood pressure 112 mm[Hg] 112 mm[Hg] e CW1 ([facility]) Diastolic blood pressure 70 mm[Hg] 70 mm[Hg] eCW1 ([facility]) Body weight 208 [lb_av] 208 [lb_av] eCW1 ([facility]) Body height 65 [in_i] 65 [in_i] eCW1 ([facility]) Body mass index (BMI) [Ratio] 34.61 kg/m2 34.61 kg/m2 W1 ([facility]) Heart rate 76 /min 76 /min eCW1 ([facility]) Respiratory rate 18 /min 18 /min eCW1 ([facility]) Body temperature 98 [degF] 98 [degF] eCW1 ([facility]) Systolic blood pressure 105 mm[Hg] 105 mm[Hg] e CW1 ([facility]) Diastolic blood pressure 68 mm[Hg] 68 mm[Hg] eCW1 ([facility]) Systolic blood pressure 136 mm[Hg] 136 mm[Hg] [facility] Diastolic blood pressure 72 mm[Hg] 72 mm[Hg] [facility] Heart rate 81 /min 81 /min [facility] Body height 157.5 cm 157.5 cm [facility] Body weight 95.709 kg 95.709 kg [facility] Body mass index (BMI) [Ratio] 38.59 kg/m2 38.59 kg/m2 [facility] Oxygen saturation in Arterial blood by Pulse oximetry 99 % 99 % [facility] Body weight 223.8 [lb_av] 223.8 [lb_av] eCW1 ([facility]) Body height 65 [in_i] 65 [in_i] eCW1 ([facility]) Body mass index (BMI) [Ratio] 37.24 kg/m2 37.24 kg/m2 eCW1 ([facility]) Heart rate 94 /min 94 /min eCW1 ([facility]) Respiratory rate 22 /min 22 /min eCW1 ([facility]) Body temperature 97.8 [degF] 97.8 [degF] eCW1 ( [facility]) Systolic blood pressure 151 mm[Hg] 151 mm[Hg] e CW1 ([facility]) Diastolic blood pressure 100 mm[Hg] 100 mm[Hg] eCW1 ([facility]) Body height 65 [in_i] 65 [in_i] eCW1 ([facility]) Body mass index (BMI) [Ratio] 35.61 kg/m2 35.61 kg/m2 eCW1 ([facility]) Heart rate 110 /min 110 /min eCW1 ([facility]) Respiratory rate 18 /min 18 /min eCW1 ([facility]) Body temperature 98.1 [degF] 98.1 [degF] eCW1 ( [facility]) Systolic blood pressure 132 mm[Hg] 132 mm[Hg] e CW1 ([facility]) Diastolic blood pressure 70 mm[Hg] 70 mm[Hg] eCW1 ([facility]) Body weight 214 [lb_av] 214 [lb_av] eCW1 ([facility]) Body height 65 [in_i] 65 [in_i] eCW1 ([facility]) Body weight 214 [lb_av] 214 [lb_av] eCW1 ([facility]) Body mass index (BMI) [Ratio] 35.61 kg/m2 35.61 kg/m2 eCW1 ([facility]) Heart rate 79 /min 79 /min eCW1 ([facility]) Respiratory rate 18 /min 18 /min eCW1 ([facility]) Body temperature 97.9 [degF] 97.9 [degF] eCW1 ( [facility]) Systolic blood pressure 111 mm[Hg] 111 mm[Hg] e CW1 ([facility]) Diastolic blood pressure 74 mm[Hg] 74 mm[Hg] eCW1 ([facility]) Body weight 205.8 [lb_av] 205.8 [lb_av] eCW1 ([facility]) Body height 65 [in_i] 65 [in_i] eCW1 ([facility]) Body mass index (BMI) [Ratio] 34.24 kg/m2 34.24 kg/m2 eCW1 ([facility]) Heart rate 91 /min 91 /min eCW1 ([facility]) Respiratory rate 19 /min 19 /min eCW1 ([facility]) Body temperature 97.9 [degF] 97.9 [degF] eCW1 ( [facility]) Systolic blood pressure 130 mm[Hg] 130 mm[Hg] e CW1 ([facility]) Diastolic blood pressure 77 mm[Hg] 77 mm[Hg] eCW1 ([facility]) Systolic blood pressure 108 mm[Hg] 108 mm[Hg] [facility] Diastolic blood pressure 72 mm[Hg] 72 mm[Hg] [facility] Heart rate 76 /min 76 /min [facility] Body height 152.4 cm 152.4 cm [facility] Body weight 84.823 kg 84.823 kg [facility] Body mass index (BMI) [Ratio] 36.52 kg/m2 36.52 kg/m2 [facility] Oxygen saturation in Arterial blood by Pulse oximetry 100 % 100 % [facility] Body weight 190 [lb_av] 190 [lb_av] eCW1 ([facility]) Body height 65 [in_i] 65 [in_i] eCW1 ([facility]) Body mass index (BMI) [Ratio] 31.61 kg/m2 31.61 kg/m2 eCW1 ([facility]) Heart rate 96 /min 96 /min eCW1 ([facility]) Respiratory rate 20 /min 20 /min eCW1 ([facility]) Systolic blood pressure 138 mm[Hg] 138 mm[Hg] e CW1 ([facility]) Diastolic blood pressure 82 mm[Hg] 82 mm[Hg] eCW1 ([facility]) Body weight [lb_av] eCW1 ([facility]) Body height 65 [in_i] 65 [in_i] eCW1 ([facility]) Body mass index (BMI) [Ratio] 31.45 kg/m2 31.45 kg/m2 eCW1 ([facility]) Heart rate 105 /min 105 /min eCW1 ([facility]) Respiratory rate 20 /min 20 /min eCW1 ([facility]) Body temperature 99.7 [degF] 99.7 [degF] eCW1 ( [facility]) Systolic blood pressure 129 mm[Hg] 129 mm[Hg] e CW1 ([facility]) Diastolic blood pressure 86 mm[Hg] 86 mm[Hg] eCW1 ([facility]) Systolic blood pressure 123 mm[Hg] 123 mm[Hg] e CW1 ([facility]) Body weight 189 [lb_av] 189 [lb_av] eCW1 ([facility]) Diastolic blood pressure 85 mm[Hg] 85 mm[Hg] eCW1 ([facility]) Body height 65 [in_i] 65 [in_i] eCW1 ([facility]) Body mass index (BMI) [Ratio] 31.45 kg/m2 31.45 kg/m2 eCW1 ([facility]) Heart rate 132 /min 132 /min eCW1 ([facility]) Respiratory rate 20 /min 20 /min eCW1 ([facility]) Body temperature 98.6 [degF] 98.6 [degF] eCW1 ( [facility]) ID Date Data Source [id number] 07/27/2020 11:43:38 AM [facility] Name Value Range Interpretation Code Description Data Source(s) WEIGHT RECORDED 200 lb 200 lb [facility] Body height Measured 62 in 62 in [facility] TRANSFER FROM [facility] ID Date Data Source [id number] 06/20/2020 04:42:49 PM EDT [facility] Name Value Range Interpretation Code Description Data Source(s) WEIGHT RECORDED 199.08 lb 199.08 lb [facility] WEIGHT RECORDED 180 lb 180 lb [facility] Body height Measured 62 in 62 in [facility] TRANSFER FROM [facility] Patient Treatment Plan of Care Planned Activity Planned Date Details Description Data Source (s) Potassium Chloride 10 MEQ Extended Release Oral Tablet 12/09/2020 12:00:00 AM EDT eCW1 ([facility]) Potassium Chloride 10 MEQ Extended Release Oral Tablet 12/09/2020 12:00:00 AM EDT eCW1 ([facility]) Hydroxyzine Hydrochloride 25 MG Oral Tablet 2020 12:00:00 AM EDT [facility] Hydroxyzine Hydrochloride 25 MG Oral Tablet 2020 12:00:00 AM EDT eCW1 ([facility]) Hydroxyzine Hydrochloride 25 MG Oral Tablet 2020 12:00:00 AM EDT eCW1 ([facility]) Hydroxyzine Hydrochloride 25 MG Oral Tablet 2020 12:00:00 AM EDT eCW1 ([facility]) Hydroxyzine Hydrochloride 25 MG Oral Tablet 2020 12:00:00 AM EDT eCW1 ([facility]) Hydroxyzine Hydrochloride 25 MG Oral Tablet 2020 12:00:00 AM EDT eCW1 ([facility]) Hydroxyzine Hydrochloride 25 MG Oral Tablet 2020 12:00:00 AM EDT eCW1 ([facility]) torsemide 20 MG Oral Tablet 10/02/2020 12:00:00 AM EDT [facility] torsemide 20 MG Oral Tablet 09/03/2020 12:00:00 AM EDT [facility] torsemide 20 MG Oral Tablet 09/03/2020 12:00:00 AM EDT [facility] Furosemide 20 MG Oral Tablet 08/17/2020 12:00:00 AM EDT [facility] carvedilol 12.5 MG Oral Tablet 08/14/2020 12:00:00 AM EDT eCW1 ([facility]) carvedilol 12.5 MG Oral Tablet 08/14/2020 12:00:00 AM EDT eCW1 ([facility]) carvedilol 12.5 MG Oral Tablet 08/14/2020 12:00:00 AM EDT eCW1 ([facility]) carvedilol 12.5 MG Oral Tablet 08/14/2020 12:00:00 AM EDT eCW1 ([facility]) carvedilol 12.5 MG Oral Tablet 08/14/2020 12:00:00 AM EDT eCW1 ([facility]) carvedilol 12.5 MG Oral Tablet 08/14/2020 12:00:00 AM EDT eCW1 ([facility]) carvedilol 12.5 MG Oral Tablet 08/14/2020 12:00:00 AM EDT eCW1 ([facility]) carvedilol 12.5 MG Oral Tablet 08/14/2020 12:00:00 AM EDT [facility] carvedilol 12.5 MG Oral Tablet 08/14/2020 12:00:00 AM EDT eCW1 ([facility]) carvedilol 12.5 MG Oral Tablet 08/14/2020 12:00:00 AM EDT eCW1 ([facility]) carvedilol 12.5 MG Oral Tablet 08/14/2020 12:00:00 AM EDT eCW1 ([facility]) carvedilol 12.5 MG Oral Tablet 08/14/2020 12:00:00 AM EDT eCW1 ([facility]) carvedilol 12.5 MG Oral Tablet 08/14/2020 12:00:00 AM EDT eCW1 ([facility]) carvedilol 12.5 MG Oral Tablet 08/14/2020 12:00:00 AM EDT eCW1 ([facility]) carvedilol 12.5 MG Oral Tablet 08/14/2020 12:00:00 AM EDT eCW1 ([facility]) carvedilol 12.5 MG Oral Tablet 08/14/2020 12:00:00 AM EDT eCW1 ([facility]) carvedilol 12.5 MG Oral Tablet 08/14/2020 12:00:00 AM EDT eCW1 ([facility]) carvedilol 12.5 MG Oral Tablet 08/14/2020 12:00:00 AM EDT eCW1 ([facility]) carvedilol 12.5 MG Oral Tablet 08/14/2020 12:00:00 AM EDT eCW1 ([facility]) carvedilol 12.5 MG Oral Tablet 08/14/2020 12:00:00 AM EDT eCW1 ([facility]) 24 HR Nicotine 0.875 MG/HR Transdermal Patch [Nicoderm C-Q] 07/25/2020 12:00:00 AM EDT eCW1 ([facility]) 24 HR Nicotine 0.875 MG/HR Transdermal Patch [Nicoderm C-Q] 07/25/2020 12:00:00 AM EDT eCW ([facility]) 24 HR Nicotine 0.875 MG/HR Transdermal Patch [Nicoderm C-Q] 07/25/2020 12:00:00 AM EDT eCW1 ([facility]) 24 HR Nicotine 0.875 MG/HR Transdermal Patch [Nicoderm C-Q] 07/25/2020 12:00:00 AM EDT eCW1 ([facility]) 24 HR Nicotine 0.875 MG/HR Transdermal Patch [Nicoderm C-Q] 07/25/2020 12:00:00 AM EDT eCW1 ([facility]) 24 HR Nicotine 0.875 MG/HR Transdermal Patch [Nicoderm C-Q] 07/25/2020 12:00:00 AM EDT eCW1 ([facility]) 24 HR Nicotine 0.875 MG/HR Transdermal Patch [Nicoderm C-Q] 07/25/2020 12:00:00 AM EDT eCW1 ([facility]) 24 HR Nicotine 0.875 MG/HR Transdermal Patch [Nicoderm C-Q] 07/25/2020 12:00:00 AM EDT eCW1 ([facility]) 24 HR Nicotine 0.875 MG/HR Transdermal Patch [Nicoderm C-Q] 07/25/2020 12:00:00 AM EDT eCW1 ([facility]) 24 HR Nicotine 0.875 MG/HR Transdermal Patch [Nicoderm C-Q] 07/25/2020 12:00:00 AM EDT eCW1 ([facility]) 24 HR Nicotine 0.875 MG/HR Transdermal Patch [Nicoderm C-Q] 07/25/2020 12:00:00 AM EDT eCW1 ([facility]) 24 HR Nicotine 0.875 MG/HR Transdermal Patch [Nicoderm C-Q] 07/25/2020 12:00:00 AM EDT eCW1 ([facility]) 24 HR Nicotine 0.875 MG/HR Transdermal Patch [Nicoderm C-Q] 07/25/2020 12:00:00 AM EDT eCW1 ([facility]) 24 HR Nicotine 0.875 MG/HR Transdermal Patch [Nicoderm C-Q] 07/25/2020 12:00:00 AM EDT eCW1 ([facility]) 24 HR Nicotine 0.875 MG/HR Transdermal Patch [Nicoderm C-Q] 07/25/2020 12:00:00 AM EDT eCW1 ([facility]) 24 HR Nicotine 0.875 MG/HR Transdermal Patch [Nicoderm C-Q] 07/25/2020 12:00:00 AM EDT eCW1 ([facility]) 24 HR Nicotine 0.875 MG/HR Transdermal Patch [Nicoderm C-Q] 07/25/2020 12:00:00 AM EDT eCW1 ([facility]) 24 HR Nicotine 0.875 MG/HR Transdermal Patch [Nicoderm C-Q] 07/25/2020 12:00:00 AM EDT eCW1 ([facility]) 24 HR Nicotine 0.875 MG/HR Transdermal Patch [Nicoderm C-Q] 07/25/2020 12:00:00 AM EDT eCW1 ([facility]) 24 HR Nicotine 0.875 MG/HR Transdermal Patch [Nicoderm C-Q] 07/25/2020 12:00:00 AM EDT eCW1 ([facility]) 24 HR Nicotine 0.875 MG/HR Transdermal Patch [Nicoderm C-Q] 07/25/2020 12:00:00 AM EDT eCW1 ([facility]) 24 HR Nicotine 0.875 MG/HR Transdermal Patch [Nicoderm C-Q] 07/25/2020 12:00:00 AM EDT eCW1 ([facility]) 24 HR Nicotine 0.875 MG/HR Transdermal Patch [Nicoderm C-Q] 07/25/2020 12:00:00 AM EDT eCW1 ([facility]) Lidocaine 5 % External Patch (LIDODERM) 07/16/2020 12:00:00 AM [facility] sennosides, FPC 8.6 MG Oral Tablet 07/15/2020 10:00:00 PM [facility] Lactulose 667 MG/ML Oral Solution 07/13/2020 12:00:00 AM EDT [facility] sodium chloride (preservative free) 0.9 % flush 3 mL 021 05:00:00 PM [facility] sodium chloride 0.9 % bag 3-20 mL 07/04/2020 12:29:48 PM [facility] Furosemide 20 MG Oral Tablet 06/20/2020 12:00:00 AM [facility] Ibuprofen 600 MG Oral Tablet 06/20/2020 12:00:00 AM [facility] Calcium Carbonate 500 MG Chewable Tablet 06/19/2020 04:15:00 AM [facility] Famotidine 20 MG Oral Tablet 06/19/2020 04:07:06 AM [facility] Thiamine 100 MG Oral Tablet 06/19/2020 12:00:00 AM [facility], FPC 8.6 MG Oral Tablet 06/19/2020 12:00:00 AM [facility] Lactulose 667 MG/ML Oral Solution 06/19/2020 12:00:00 AM [facility] hypromellose 25 MG/ML Ophthalmic Solution 06/19/2020 12:00:00 AM [facility] Folic Acid 1 MG Oral Tablet 06/19/2020 12:00:00 AM [facility] Docusate Sodium 100 MG Oral Capsule 06/19/2020 12:00:00 AM [facility] carvedilol 6.25 MG Oral Tablet 06/19/2020 12:00:00 AM [facility] 8[facility] MG Oral Tablet 06/12/2020 10:00:00 PM [facility] hypromellose 25 MG/ML Ophthalmic Solution 06/12/2020 09:53:35 AM [facility] torsemide 20 MG Oral Tablet 06/12/2020 12:00:00 AM [facility] Spironolactone 25 MG Oral Tablet 06/12/2020 12:00:00 AM [facility] Spironolactone 25 MG Oral Tablet 03/15/2020 12:00:00 AM [facility] torsemide 20 MG Oral Tablet 03/15/2020 12:00:00 AM [facility] 24 HR metoprolol succinate 50 MG Extended Release Oral Tablet 02/21/2020 12:00:00 AM [facility] [facility] Benazepril hydrochloride 20 MG / Hydrochlorothiazide 2 5 MG Oral Tablet 02/21/2020 12:00:00 AM [facility] Ergocalciferol 93520 UNT Oral Capsule 01/25/2020 12:00:00 AM EST [facility] Ergocalciferol 60831 UNT Oral Capsule [Drisdol] 01/24/2020 12:00:00 AM EST eCW1 ([facility]) Ergocalciferol 94998 UNT Oral Capsule [Drisdol] 01/24/2020 12:00:00 AM EST eCW1 ([facility]) Ergocalciferol 23540 UNT Oral Capsule [Drisdol] 01/24/2020 12:00:00 AM EST eCW1 ([facility]) Ergocalciferol 95505 UNT Oral Capsule [Drisdol] 01/24/2020 12:00:00 AM EST eCW1 ([facility]) Ergocalciferol 55045 UNT Oral Capsule [Drisdol] 01/24/2020 12:00:00 AM EST eCW1 ([facility]) 24 HR metoprolol succinate 50 MG Extended Release Oral Tablet 01/13/2020 12:00:00 AM EST eCW1 ([facility]) 24 HR metoprolol succinate 50 MG Extended Release Oral Tablet 01/13/2020 12:00:00 AM EST eCW1 ([facility]) 24 HR metoprolol succinate 50 MG Extended Release Oral Tablet 01/13/2020 12:00:00 AM EST eCW1 ([facility]) 24 HR metoprolol succinate 50 MG Extended Release Oral Tablet 01/13/2020 12:00:00 AM EST eCW1 ([facility]) 24 HR metoprolol succinate 50 MG Extended Release Oral Tablet 01/13/2020 12:00:00 AM EST eCW1 ([facility]) 24 HR metoprolol succinate 50 MG Extended Release Oral Tablet 01/13/2020 12:00:00 AM EST eCW1 ([facility]) pantoprazole 40 MG Delayed Release Oral Tablet 01/13/2020 12:00:00 AM EST [facility] Nadolol 20 MG Oral Tablet 06/06/2016 12:00:00 AM [facility] 24 HR metoprolol succinate 50 MG Extended Release Oral Tablet [facility] torsemide 20 MG Oral Tablet [facility] Metoprolol Tartrate 50 MG Oral Tablet [facility] Benazepril hydrochloride 20 MG / Hydrochlorothiazide 25 MG Oral Tab let [facility]
[2021-01-01] MEDS ORDERED: fentaNYL 100 MCG/2 ML INJECTION (J3010) As Ordered ONE (10:21)
[2021-01-01] MEDS ORDERED: propofoL 200 MG/20 ML VIAL As Ordered ONE (10:49)
[2021-01-01] MEDS ORDERED: LIDOCAINE 2% 100MG/5ML SDV (FOR ANES.) As Ordered ONE (10:49)
--- NOTE | 2021-01-01 10:58 | ROOR ---
Patient Name: Mak Mendieta Procedure Date: 01/01/2021 10:44 AM Date of : 1960 Age: 60 Room: [facility] Gender: Male Note Status: Finalized Procedure: Upper GI endoscopy Indications: Iron deficiency anemia secondary to chronic blood loss, Cirrhosis rule out esophageal varices Providers: Cecilio Topete MD Referring MD: Pelon Elam MD Requesting Provider: Medicines: Monitored Anesthesia Care Complications: No immediate complications. Procedure: Pre-Anesthesia Assessment: - The heart rate, respiratory rate, oxygen saturations, blood pressure, adequacy of pulmonary ventilation, and response to care were monitored throughout the procedure. The Endoscope was introduced through the mouth, and advanced to the second part of duodenum. The upper GI endoscopy was accomplished without difficulty. The patient tolerated the procedure well. Findings: The esophagus was normal. The stomach was normal. The examined duodenum was normal. There is no endoscopic evidence of varices in the entire esophagus. There is no endoscopic evidence of varices in the entire examined stomach. Impression: - Normal esophagus. - Normal stomach. - Normal examined duodenum. - No specimens collected. - No varices were seen Recommendation: - Observe patient's clinical course. - Continue present medications. Procedure Code(s): --- Professional --- 64479, Esophagogastroduodenoscopy, flexible, transoral; diagnostic, including collection of specimen(s) by brushing or washing, when performed (separate procedure) Diagnosis Code(s): --- Professional --- K74.60, Unspecified cirrhosis of liver D50.0, Iron deficiency anemia secondary to blood loss (chronic) CPT copyright 2019 [employer]. All rights reserved. The codes documented in this report are preliminary and upon ski patroller review may be revised to meet current compliance requirements. Cecilio Topete MD Cecilio Topete MD 01/01/2021 10:57:57 AM Electronically signed by Cecilio Topete MD Number of Addenda: 0 Note Initiated On: 01/01/2021 10:44 AM Estimated Blood Loss: Estimated blood loss: none.
[2021-01-01] MEDS ORDERED: PHENYLephrine 500MCG 5ML (100MCG/ML) SYRINGE As Ordered ONE (11:09)
--- NOTE | 2021-01-01 11:17 | ROOR ---
Patient Name: Mak Mendieta Procedure Date: 01/01/2021 10:45 AM Date of : 1960 Age: 60 Room: [facility] Gender: Male Note Status: Finalized Procedure: Colonoscopy Indications: Iron deficiency anemia secondary to chronic blood loss Providers: Cecilio Topete MD Referring MD: Pelon Elam MD Requesting Provider: Medicines: Monitored Anesthesia Care Complications: No immediate complications. Procedure: Pre-Anesthesia Assessment: - The heart rate, respiratory rate, oxygen saturations, blood pressure, adequacy of pulmonary ventilation, and response to care were monitored throughout the procedure. The Colonoscope was introduced through the anus and advanced to the cecum, identified by appendiceal orifice and ileocecal valve. The colonoscopy was performed without difficulty. The patient tolerated the procedure well. The quality of the bowel preparation was adequate and fair. Findings: The perianal and digital rectal examinations were normal. A 6 mm polyp was found in the cecum. The polyp was semi-pedunculated. The polyp was removed with a cold snare. Resection and retrieval were complete. To prevent bleeding after the polypectomy, two hemostatic clips were successfully placed. There was no bleeding at the end of the procedure. Multiple medium-mouthed diverticula were found in the left colon and right colon. Internal hemorrhoids were found during retroflexion. The hemorrhoids were moderate. The exam was otherwise without abnormality on direct and retroflexion views. Impression: - Preparation of the colon was fair. - One 6 mm polyp in the cecum, removed with a cold snare. Resected and retrieved. Clips were placed. - Moderate diverticulosis in the left colon and in the right colon. - Internal hemorrhoids. - The examination was otherwise normal on direct and retroflexion views. Recommendation: - Repeat colonoscopy in 5 years for surveillance. Procedure Code(s): --- Professional --- 42642, Colonoscopy, flexible; with removal of tumor(s), polyp(s), or other lesion(s) by snare technique Diagnosis Code(s): --- Professional --- K57.30, Diverticulosis of large intestine without perforation or abscess without bleeding D50.0, Iron deficiency anemia secondary to blood loss (chronic) K63.5, Polyp of colon K64.8, Other hemorrhoids CPT copyright 2019 [employer]. All rights reserved. The codes documented in this report are preliminary and upon kst operator review may be revised to meet current compliance requirements. Cecilio Topete MD Cecilio Topete MD 01/01/2021 11:16:57 AM Electronically signed by Cecilio Topete MD Number of Addenda: 0 Note Initiated On: 01/01/2021 10:45 AM Estimated Blood Loss: Estimated blood loss: none.
[2021-01-01 11:39] VITALS: BP 101/56
== END 2021-01-01 11:53 | disposition home or self-care (01) ==
LOC: M OPP 09:09
PROVIDERS: ATTEND Internal Medicine Gastroenterology
DX: K74.60 Unspecified cirrhosis of liver (principal); D50.0 Iron deficiency anemia secondary to blood loss (chronic); K57.30 Diverticulosis of large intestine without perforation or abscess without bleeding; D12.0 Benign neoplasm of cecum; K64.8 Other hemorrhoids
CPT/HCPCS: 43235; 45385; 88305; J2370; J3010

== ENCOUNTER → 2021-01-04 | Outpatient (CLI) | payer OTHER ==
[~2021-01-04] MED LIST changes: -NS 1,000 ML IV ONE; +SODIUM BICARBONATE 8.4% INJ 50MEQ 50 ML VIAL As Ordered ONE
[2021-01-04 10:01] VITALS: BP 113/65
--- NOTE | 2021-01-04 16:34 | REP ---
INDICATION: ASCITES. COMPARISON: None. TECHNIQUE: The procedure was performed under the direct supervision of Dr. Craig. The risks and benefits of the procedure were explained to the patient and informed consent was obtained. The largest pocket of fluid was localized in the left flank using ultrasound guidance. The skin was prepped and draped in a sterile fashion. 5 mL of buffered 1% lidocaine was used as a local anesthetic. An 8-Indonesian multi side-hole catheter was inserted using trocar technique.4800 mL of clear yellow fluid was withdrawn and discarded. Estimated blood loss: Less than 1 mL The patient tolerated the procedure well and there were no immediate complications. After the appropriate amount of monitored convalescence, the patient was discharged from the department. FINDINGS: None IMPRESSION: Ultrasound-guided paracentesis [id number] mL of clear yellow fluid. <Electronically signed by Kermit Kent > 01/04/21 1428 <Electronically signed by Ernie Craig > 01/04/21 3403
== END ==
LOC: M IRPRO 08:49
PROVIDERS: ATTEND Family Medicine
DX: K70.31 Alcoholic cirrhosis of liver with ascites (principal)

== ENCOUNTER → 2021-01-11 | Outpatient (CLI) | payer OTHER ==
[~2021-01-11] MED LIST changes: -SODIUM BICARBONATE 8.4% INJ 50MEQ 50 ML VIAL As Ordered ONE
[2021-01-11 09:31] VITALS: BP 112/72
--- NOTE | 2021-01-11 12:45 | REP ---
INDICATION: ASCITES The patient has a history of ascites COMPARISON: None. TECHNIQUE: The procedure was performed by DANETTE Grace, under the direct supervision of Dr. Alvarez The risks and benefits of the procedure were explained to the patient and an informed consent was obtained both verbally and written. Directly prior to the start of the procedure a formal time-out was completed in the procedure room. The largest pocket of fluid was localized in the left lower quadrant using ultrasound guidance. The skin was prepped and draped in a sterile fashion. Ten ML of 1% lidocaine 10 mg/ml was used as a local anesthetic. An 8-Bengali multi side-hole catheter was inserted using trocar technique. FINDINGS: 3800 mL of clear yellow fluid were removed. The patient tolerated the procedure well and there were no immediate complications. After the appropriate amount of monitored convalescence, the patient was discharged from the department. IMPRESSION: Technically successful paracentesis yielding 3800 mL of clear yellow fluid. <Electronically signed by Sophia Avila > 01/11/21 0944 <Electronically signed by Erlin Alvarez > 01/11/21 1245
== END ==
LOC: M IRPRO 08:53
PROVIDERS: ATTEND Family Medicine
DX: R18.8 Other ascites (principal)

== ENCOUNTER 2021-01-24 10:22 | Inpatient (IN) | payer OTHER ==
[~2021-01-24] VITALS: Ht 154.9 cm; Wt 85.0 kg
--- OUTSIDE RECORDS SUMMARY | 2021-01-24 10:32 | CCD ---
Author Author [facility] Organization [facility] [employer] Address Unknown Phone Unavailable Care Team Providers Care Marketing Compliance Manager Name Role Phone Pelon Elam Unavailable PROBLEMS Type Condition ICD9-CM Code CVE68-UC Code Onset Dates Condition S tatus W/U Status Risk SNOMED Code Notes Problem Gastro-esophageal reflux disease without esophagitis K21.9 Active confirmed 994637622 Problem Other hyperlipidemia E78.4 Active confirmed 06510999 Problem Essential (primary) hypertension I10 Active conf irmed 76918723 Problem Dyslipidemia E78.5 Active confirmed 0704905 07 Problem Umbilical hernia without obstruction and without gangrene K42.9 Active confirmed 248270263 Problem Alcohol abuse F10.10 Active confirmed 342254 05 Problem Elevated blood sugar R73.9 Active confirmed 703355504 Problem Esophageal varices without b leeding, unspecified esophageal varices type I85.00 Active confirmed 67476801 Problem Hepatic cirrhosis, unspecified hepatic cirrhosis type K74.60 Active confirmed 82298890 Problem Esophageal varices I85.00 Active confirmed 2 5210361 Problem Cirrhosis of liver K74.60 Active confirmed 1 8621581 Problem Type 2 diabetes mellitus wit h complication, without long-term current use of insulin E11.8 Active confirmed 39746583 Problem Nicotine dependence, uncomplicated, unspecified nicotine product type F17.200 Active confirmed 90859568 Problem Inguinal hernia of left side without obstruction or gangre ne K40.90 Active confirmed 572657198 Problem Epididymitis, right N45.1 Active confirmed 33170240 Problem Jaundice R17 Active confirmed 10482826 Problem 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 Activ e confirmed [id number] Problem Other cirrhosis of liver K74.69 Active confirmed 46707581 Problem Hepatic encephalopathy K72.90 Active confirmed 26176979 Problem Vitamin D deficiency, unspecified E55.9 Active con firmed 87972539 Problem Chronic hepatitis C B18.2 Active confirmed 836236529 Problem Other ascites R18.8 Active confirmed 768473 000 Problem Unspecified cirrhosis of liver K74.60 Active confir med 31703890 Problem Nicotine dependence with juwan otine-induced disorder, unspecified nicotine product type F17.209 Active confirmed 90526827 Problem T12 burst fracture S22.081A Active confirmed 932788595 ALLERGIES No Known Allergies ENCOUNTERS from 1960 to 2020-12-11 Encounter Location Date Provider Diagnosis [address] [phone] [place] [address] 14 Nov, 2020 Pelon Elam Essential (primary) hypertension I10 ; T ype 2 diabetes mellitus with complication, without long-term current use of insulin E11.8 ; Hepatic cirrhosis, unspecified hepatic cirrhosis type K74.60 ; Hydrocele, unspecified hydrocele type N43.3 ; Hepatic encephalopathy K72.90 ; Encounter for immunization Z23 and 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 5 or less REASON FOR REFERRAL from 1960 to 2020-12-11 Reason patient requiring weekly par acentesis. is permanent drainage system placement an option? Diagnosis 1 Hepatic cirrhosis, unspecifi ed hepatic cirrhosis type (K74.60) Referral Organization [facility] Referring Provider First Name Pelon Referring Provider Last Name Papa Referring Provider Specialty Family Medicine Referred Organization [facility] Referred Provider Dorina Hoffman ([facility]) Referred Address [address] [place] [address] Referred Provider Specialty Vascular and Interventiona l Radiology Referral Priority Stat General Notes Tanesha Frias 12/06/2020 5 :42:40 PM > ref faxValentin Eduardo 12/07/2020 7:59:12 AM > Spoke to office they state this needs to go to . I faxed to this office. I will do auth as well.Valentin Eid 12/07/2020 7:59:51 AM > faxedMorichardValentin 12/07/2020 10:14:47 AM > faxed failed. Faxed again as urgent.Valentin Eid 12/10/2020 1:14:58 PM > left message for blanca to call me back. VITAL SIGNS Weight 195 lbs Nov, Height 65 in Nov, BMI 32.45 kg/m2 Nov, Heart Rate 95 /min Nov, Respiratory Rate 19 /min Nov, Temperature 98 degrees Fahrenheit Nov, Oximetry 100Ra Nov, Blood pressure systolic 123 mm Hg Nov, Blood pressure diastolic 80 mm Hg Nov, MEDICATIONS Medication SIG (Take, Route, Frequency, Duration) Notes Start Da te End Date Status Spironolactone 25 MG TAKE TWO TABLETS BY MOUTH EVERY DAY for 30 Active Carvedilol 12.5 MG 1 tablet with food Orally Twice a day pt reports that he is only taking once a day Jul, Active Nicoderm CQ 21 MG/24HR 1 patch to skin Transdermal Once a da y pt reports that he would like to start this again Jul, Not-Takin g Torsemide 20 MG 1 tab Orally Daily A ctive Potassium Chloride ER 10 MEQ 1 tablet with food Orally Twice a day for 30 day(s) Nov, Active hydrOXYzine HCl 25 MG 1 tablet as needed Orally ev farheen 8 hrs for itching for 30 day(s) Oct, Active Lactulose 10 GM/15ML take 30ml by mouth three times a day Oral for 30 Days Active Pantoprazole Sodium 40 MG 1 tablet Orally BID with food Active PROCEDURES from 1960 to 2020-12-11 Procedure Date Ordered Result Body Site Imm: Shingrix 50mcg/0.5mL IM Zoster 2020-12-06 N/A Imm: Flublok Quadrivalent 18 years & older 0.5mL IM Influenza 20 13-12-13 N/A RESULTS No Results REASON FOR VISIT 6 WEEKS MEDICAL (GENERAL) HISTORY Type Description Date Medical [...] removed from neck in 1979 Hospitalization History [place] [address] Hospitalization History [facility] 05/2020 Hospitalization History [facility] 09/2020 Goals Section No Information Health Concerns No Information MEDICAL EQUIPMENT No Information MENTAL STATUS No Information FUNCTIONAL STATUS No Information ASSESSMENTS Encounter Date Diagnosis Assessment Notes Treatment Notes Treatm ent Clinical Notes Nov, Essential (primary) hypertension (ICD-10 - I10) 14 Nov, 2020 Type 2 diabetes mellitus wit h complication, without long-term current use of insulin (ICD-10 - E11.8) Nov, Hepatic cirrhosis, unspecifi ed hepatic cirrhosis type (ICD-10 - K74.60) Nov, Hydrocele, unspecified hydrocele type (ICD-10 - N43.3) 14 Nov, 2020 Hepatic encephalopathy (ICD-10 - K72.90) Nov, Encounter for immunization (ICD-10 - Z23) Patient Educated with: Flu Recombinant [id number] (Flu Recombinant [id number].pdf) Patient Educated with: Zoster (Recombinant) [id number] (Zoster (Recombinant) [id number].pdf) Nov, Ascites due to alcoholic cirrhosis (ICD-10 - K70 .31) PLAN OF TREATMENT Medication Medication Name Sig Start Date Stop Date Potassium Chloride ER 10 MEQ 1 tablet with food Orally Twice a day for 30 day(s) Nov, Treatment Notes Assessment Notes Clinical Notes Encounter for immunization Patient Educated with: Flu Recombinant [id number] (Flu Recombinant [id number]) Patient Educated with: Zoster (Recombinant) [id number] (Zoster (Recombinant) [id number].pdf) Future Test Test Name Order Date Comprehensive Metabolic Profile (CMP) [id number] TSH [id number] HEMOGLOBIN A1c [id number] CBC - Complete Blood Count [id number] Referrals Referral Date Details patient requiring weekly par acentesis. is permanent drainage system placement an option?, Dorina Hoffman ([facility]), [address] [place], [address], Next Appt Details 2 Months Reason: Provider Name:Pelon Elam, 2021-02-06 11 :00:00 AM, [facility] , [place], [address], Insurance Providers Payer Name Payer Address Payer Phone Insured Name Patient Relati onship to Insured Coverage Start Date Coverage End Date [facility] [address] [facility] [id number] ADDISON ZUÑIGA self
--- OUTSIDE RECORDS SUMMARY | 2021-01-24 10:35 | CCD ---
Author Author [facility] Organization [facility] Address Unknown Phone Unavailable Care Team Providers Care Automotive Technician Name Role Phone MAGUIRE ., TIMUR DO Unavailable Unavailable MAGUIRE ., TIMUR DO Unavailable Unavailable DEBBIE Castillo MD Unavailable Unavailable MbameDEBBIE MD Unavailable Unavailable MbDEBBIE morales MD Unavailable Unavailable MbDEBBIE morales MD Unavailable Unavailable MbDEBBIE morales MD Unavailable Unavailable MbameDEBBIE MD Unavailable Unavailable Lolita FRANCO Unavailable Unavailable Salmon, Jordyn PEDIATRICS PHYSICIAN Unavailable Unavailable Salmon, Jordyn PEDIATRICS PHYSICIAN Unavailable Unavailable Salmon, Jordyn PEDIATRICS PHYSICIAN Unavailable Unavailable Salmon, Jordyn PEDIATRICS PHYSICIAN Unavailable Unavailable Salmon, Jordyn PEDIATRICS PHYSICIAN Unavailable Unavailable Salmon, Jordyn PEDIATRICS PHYSICIAN Unavailable Unavailable Salmon, Jordyn PEDIATRICS PHYSICIAN Unavailable Unavailable Salmon, Jordyn PEDIATRICS PHYSICIAN Unavailable Unavailable Salmon, Jordyn PEDIATRICS PHYSICIAN Unavailable Unavailable Salmon, Jordyn PEDIATRICS PHYSICIAN Unavailable Unavailable Salmon, Jordyn PEDIATRICS PHYSICIAN Unavailable Unavailable Salmon, Jordyn PEDIATRICS PHYSICIAN Unavailable Unavailable Salmon, Jordyn PEDIATRICS PHYSICIAN Unavailable Unavailable Salmon, Jordyn PEDIATRICS PHYSICIAN Unavailable Unavailable Salmon, Jordyn PEDIATRICS PHYSICIAN Unavailable Unavailable Salmon, Jordyn PEDIATRICS PHYSICIAN Unavailable Unavailable Salmon, Jordyn PEDIATRICS PHYSICIAN Unavailable Unavailable Salmon, Jordyn PEDIATRICS PHYSICIAN Unavailable Unavailable Salmon, Jordyn PEDIATRICS PHYSICIAN Unavailable Unavailable Salmon, Jordyn PEDIATRICS PHYSICIAN Unavailable Unavailable Salmon, Jordyn PEDIATRICS PHYSICIAN Unavailable Unavailable Salmon, Jordyn PEDIATRICS PHYSICIAN Unavailable Unavailable Salmon, Jordyn PEDIATRICS PHYSICIAN Unavailable Unavailable Salmon, Jordyn PEDIATRICS PHYSICIAN Unavailable Unavailable Salmon, Jordyn PEDIATRICS PHYSICIAN Unavailable Unavailable Salmon, Jordyn PEDIATRICS PHYSICIAN Unavailable Unavailable Salmon, Jordyn PEDIATRICS PHYSICIAN Unavailable Unavailable Salmon, Jordyn PEDIATRICS PHYSICIAN Unavailable Unavailable Salmon, Jordyn PEDIATRICS PHYSICIAN Unavailable Unavailable Salmon, Jordyn PEDIATRICS PHYSICIAN Unavailable Unavailable Salmon, Jordyn PEDIATRICS PHYSICIAN Unavailable Unavailable Salmon, Jordyn PEDIATRICS PHYSICIAN Unavailable Unavailable Salmon, Jordyn PEDIATRICS PHYSICIAN Unavailable Unavailable Salmon, Jordyn PEDIATRICS PHYSICIAN Unavailable Unavailable Salmon, Jordyn PEDIATRICS PHYSICIAN Unavailable Unavailable Salmon, Jordyn PEDIATRICS PHYSICIAN Unavailable Unavailable Salmon, Jordyn PEDIATRICS PHYSICIAN Unavailable Unavailable Salmon, Jordyn PEDIATRICS PHYSICIAN Unavailable Unavailable Salmon, Jordyn PEDIATRICS PHYSICIAN Unavailable Unavailable Salmon, Jordyn PEDIATRICS PHYSICIAN Unavailable Unavailable Salmon, Jordyn PEDIATRICS PHYSICIAN Unavailable Unavailable Salmon, Jordyn PEDIATRICS PHYSICIAN Unavailable Unavailable Salmon, Jordyn PEDIATRICS PHYSICIAN Unavailable Unavailable Salmon, Jordyn PEDIATRICS PHYSICIAN Unavailable Unavailable Salmon, Jordyn PEDIATRICS PHYSICIAN Unavailable Unavailable Salmon, Jordyn PEDIATRICS PHYSICIAN Unavailable Unavailable Salmon, Jordyn PEDIATRICS PHYSICIAN Unavailable Unavailable Salmon, Jordyn PEDIATRICS PHYSICIAN Unavailable Unavailable David SIMONS MD Unavailable Unavailable [...] Unavailable JOSIAH, F RONNA MD Unavailable Unavailable JOSIAHTatyana MCGRATH MD Unavailable Unavailable JOSIAHTatyana MCGRATH MD Unavailable Unavailable JOSIAHTatyana MCGRATH MD Unavailable Unavailable JOSIAHTatyana MCGRATH MD Unavailable Unavailable JOSIAHTatyana MCGRATH MD Unavailable Unavailable JOSIAHTatyana MCGRATH MD Unavailable Unavailable JOSIAHTatyana MCGRATH MD Unavailable Unavailable JOSIAHTatyana MCGRATH MD Unavailable Unavailable JOSIAH, Tatyana FRIEND MD [...] Unavailable JOSIAH, Tatyana FRIEND MD Unavailable Unavailable JOSIAHTatyana MCGRATH MD Unavailable Unavailable JOSIAHTatyana MCGRATH MD Unavailable Unavailable HILL PA, W CAROLA [...] Unavailable JACKELINE, RONNA KARLA PA Unavailable Unavailable Axle Zepeda MD Unavailable Unavailable Axel Zepeda MD [...] Unavailable Unavailable Axel Zepeda MD Unavailable Unavailable Slezka Vojtech MD Unavailable Unavailable Slezka Vojtech MD Unavailable Unavailable Slezka Vojtech MD Unavailable Unavailable Slezka Vojtech MD Unavailable Unavailable Slezka Vojtech MD Unavailable Unavailable Slezka Vojtech MD Unavailable Unavailable Slezka Vojtech MD Unavailable Unavailable Slezka Vojtech MD Unavailable Unavailable Slezka Vojtech MD Unavailable Unavailable Slezka Vojtech MD Unavailable Unavailable Slezka Vojtech MD Unavailable Unavailable Slezka Vojtech MD Unavailable Unavailable Slezka Vojtech MD Unavailable Unavailable Slezka Vojtech MD Unavailable Unavailable Slezka Vojtech MD Unavailable Unavailable Slezka Vojtech MD Unavailable Unavailable Slezka Vojtech MD Unavailable Unavailable Slezka Vojtech MD Unavailable Unavailable Slezka Vojtech MD Unavailable Unavailable Slezka Vojtech Unavailable Unavailable SlezkaTujtech Unavailable Unavailable SlezkaTujtech MD Unavailable Unavailable SlezkaTujtech MD Unavailable Unavailable Slezka Vojtech MD Unavailable Unavailable Slezka Vojtech MD Unavailable Unavailable Slezka Vojtech MD Unavailable Unavailable REINDL, JOANIE ANDERSEN Unavailable [...] REINDL, JOANIE ANDERSEN Unavailable Unavailable REINDL, JOANIE ANDERSNE Unavailable Unavailable REINDL, JOANIE ANDERSEN Unavailable Unavailable REINDL, JOANIE ANDERSEN Unavailable Unavailable REINDL, JOANIE ANDERSEN Unavailable Unavailable REINDL, JOANIE ANDERSEN Unavailable Unavailable REINDL, JOANIE ANDERSEN Unavailable Unavailable OMALLEY, Lolita NOEL MD Unavailable Unavailable OMALLEY, Lolita NOEL MD Unavailable Unavailable OMALLEY, Lolita NOEL MD Unavailable Unavailable OMALLEY, Lolita NOEL MD Unavailable Unavailable OMALLEY, Lolita NOEL MD Unavailable Unavailable OMALLEY, Lolita NOEL MD Unavailable Unavailable OMALLEY, Lolita NOEL MD Unavailable Unavailable OMALLEY, Lolita NOEL MD Unavailable Unavailable Salmon, Jordyn PEDIATRICS PHYSICIAN Unavailable Unavailable Salmon, Jordyn PEDIATRICS PHYSICIAN Unavailable Unavailable Salmon, Jordyn PEDIATRICS PHYSICIAN Unavailable Unavailable Salmon, Jordyn PEDIATRICS PHYSICIAN Unavailable Unavailable Salmon, Jordyn PEDIATRICS PHYSICIAN Unavailable Unavailable Salmon, Jordyn PEDIATRICS PHYSICIAN Unavailable Unavailable Salmon, Jordyn PEDIATRICS PHYSICIAN Unavailable Unavailable Salmon, Jordyn PEDIATRICS PHYSICIAN Unavailable Unavailable Salmon, Jordyn PEDIATRICS PHYSICIAN Unavailable Unavailable Salmon, Jordyn PEDIATRICS PHYSICIAN Unavailable Unavailable Salmon, Jordyn PEDIATRICS PHYSICIAN Unavailable Unavailable Salmon, Jordyn PEDIATRICS PHYSICIAN Unavailable Unavailable Salmon, Jordyn PEDIATRICS PHYSICIAN Unavailable Unavailable Salmon, Jordyn PEDIATRICS PHYSICIAN Unavailable Unavailable Salmon, Jordyn PEDIATRICS PHYSICIAN Unavailable Unavailable Salmno, Jordyn PEDIATRICS PHYSICIAN Unavailable Unavailable Salmon, Jordyn PEDIATRICS PHYSICIAN Unavailable Unavailable Salmon, Jordyn PEDIATRICS PHYSICIAN Unavailable Unavailable Salmon, Jordyn PEDIATRICS PHYSICIAN Unavailable Unavailable Salmon, Jordyn PEDIATRICS PHYSICIAN Unavailable Unavailable Salmon, Jordyn PEDIATRICS PHYSICIAN Unavailable Unavailable Salmon, Jordyn PEDIATRICS PHYSICIAN Unavailable Unavailable Salmon, Jordyn PEDIATRICS PHYSICIAN Unavailable Unavailable Salmon, Jordyn PEDIATRICS PHYSICIAN Unavailable Unavailable Salmon, Jordyn PEDIATRICS PHYSICIAN Unavailable Unavailable Salmon, Jordyn PEDIATRICS PHYSICIAN Unavailable Unavailable Salmon, Jordyn PEDIATRICS PHYSICIAN Unavailable Unavailable Salmon, Jordyn PEDIATRICS PHYSICIAN Unavailable Unavailable Salmon, Jordyn PEDIATRICS PHYSICIAN Unavailable Unavailable Salmon, Jordyn PEDIATRICS PHYSICIAN Unavailable Unavailable Salmon, Jordyn PEDIATRICS PHYSICIAN Unavailable Unavailable Salmon, Jordyn PEDIATRICS PHYSICIAN Unavailable Unavailable Salmon, Jordyn PEDIATRICS PHYSICIAN Unavailable Unavailable Salmon, Jordyn PEDIATRICS PHYSICIAN Unavailable Unavailable Salmon, Jordyn PEDIATRICS PHYSICIAN Unavailable Unavailable Salmon, Jordyn PEDIATRICS PHYSICIAN Unavailable Unavailable Salmon, Jordyn PEDIATRICS PHYSICIAN Unavailable Unavailable Salmon, Jordyn PEDIATRICS PHYSICIAN Unavailable Unavailable Salmon, Jordyn PEDIATRICS PHYSICIAN Unavailable Unavailable Salmon, Jordyn PEDIATRICS PHYSICIAN Unavailable Unavailable Salmon, Jordyn PEDIATRICS PHYSICIAN Unavailable Unavailable Salmon, Jordyn PEDIATRICS PHYSICIAN Unavailable Unavailable Salmon, Jordyn PEDIATRICS PHYSICIAN Unavailable Unavailable Salmon, Jordyn PEDIATRICS PHYSICIAN Unavailable Unavailable Salmon, Jordyn PEDIATRICS PHYSICIAN Unavailable Unavailable Salmon, Jordyn PEDIATRICS PHYSICIAN Unavailable Unavailable Salmon, Jordyn PEDIATRICS PHYSICIAN Unavailable Unavailable Salmon, Jordyn PEDIATRICS PHYSICIAN Unavailable Unavailable BAUDILIO LOPEZ MD Unavailable Unavailable [...] MD Unavailable Unavailable CREAMERLakisha MD Unavailable Unavailable Nerissa, V AMY PA-C Unavailable Unavailable Nerissa, V AMY PA-C Unavailable Unavailable Morrill, V AMY PA-C Unavailable Unavailable Morrill, V AMY PA-C Unavailable Unavailable Nerissa, V AMY PA-C Unavailable Unavailable Morrill, V AMY PA-C Unavailable Unavailable Morrill, V AMY PA-C Unavailable Unavailable Morrill, V AMY PA-C Unavailable Unavailable Nerissa, V AMY PA-C Unavailable Unavailable Morrill, V AMY PA-C Unavailable Unavailable Nerissa, V AMY PA-C Unavailable Unavailable Morrill, V AMY PA-C Unavailable Unavailable Morrill, V AMY PA-C Unavailable Unavailable Nerissa, V AMY PA-C Unavailable Unavailable Joelle, Greta Daugherty PEDIATRICS PHYSICIAN Unavailable Unavailable [place]arico, A Smith ANDERSEN Unavailable Unavailable [place]arico, A Smith ANDERSEN Unavailable Unavailable [place], A Smith ANDERSEN Unavailable Unavailable [place]ar[place], A Smith ANDERSEN Unavailable Unavailable [place], A Smith ANDERSEN Unavailable Unavailable [place]ar[place], A Smith ANDERSEN Unavailable Unavailable [place], A Smith ANDERSEN Unavailable Unavailable [place], A Smith ANDERSEN Unavailable Unavailable [place], A Smith ANDERSEN Unavailable Unavailable [place], A Smith ANDERSEN Unavailable Unavailable [place], A Smith ANDERSEN Unavailable Unavailable [place], A Smith ANDERSEN Unavailable Unavailable [place], A Smith ANDERSEN Unavailable Unavailable [place], A Smith ANDERSEN Unavailable Unavailable [place], A Smith ANDERSEN Unavailable Unavailable [place], A Smith ANDERSEN Unavailable Unavailable [place], A Smith ANDERSEN Unavailable Unavailable [place], A Smith ANDERSEN Unavailable Unavailable [place], A Smith ANDERSEN Unavailable Unavailable [place], A Smith ANDERSEN Unavailable Unavailable [place], A Smith ANDERSEN Unavailable Unavailable [place], A Smith ANDERSEN Unavailable Unavailable [place], A Smith ANDERSEN Unavailable Unavailable [place], A Smith ANDERSEN Unavailable Unavailable [place], A Smith ANDERSEN Unavailable Unavailable [place], A Smith ANDERSEN Unavailable Unavailable [place], A Smith ANDERSEN Unavailable Unavailable [place], A Smith MD Unavailable Unavailable [place], A Smith ANDERSEN Unavailable Unavailable [place], A Smith ANDERSEN Unavailable Unavailable [place], A Smith ANDERSEN Unavailable Unavailable [place], A Smith ANDERSEN Unavailable Unavailable [place], A Smith ANDERSEN Unavailable Unavailable [place], A Smith ANDERSEN Unavailable Unavailable [place], A Smith ANDERSEN Unavailable Unavailable [place], A Smith ANDERSEN Unavailable Unavailable [place], A Smith ANDERSEN Unavailable Unavailable [place], A Smith ANDERSEN Unavailable Unavailable [place], A Smith ANDERSEN Unavailable Unavailable [place], A Smith MD Unavailable [...] Smith MD Unavailable Unavailable [place]ar[place], A Smith ANDERSEN Unavailable Unavailable [place], A Smith ANDERSEN Unavailable Unavailable David Elam MD Unavailable Unavailable David Elam MD Unavailable Unavailable Papa, David Bird MD Unavailable Unavailable David Elam MD Unavailable Unavailable David Elam MD Unavailable Unavailable Papa, David Bird MD Unavailable Unavailable Papa, David Bird MD Unavailable Unavailable Papa, David Bird MD Unavailable Unavailable Papa, David Bird MD Unavailable Unavailable David Elam MD Unavailable [...] Unavailable Unavailable David Elam MD Unavailable Unavailable aDvid Elam MD Unavailable Unavailable David Elam MD [...] Elam MD Unavailable Unavailable Dhruv, M Balbina PEDIATRICS PHYSICIAN Unavailable Unavailable Dhruv, M Balbina PEDIATRICS PHYSICIAN Unavailable Unavailable Dhruv, M Balbina PEDIATRICS PHYSICIAN Unavailable Unavailable Dhruv, M Balbina PEDIATRICS PHYSICIAN Unavailable Unavailable Dhruv, M Balbina PEDIATRICS PHYSICIAN Unavailable Unavailable Dhruv, M Balbina PEDIATRICS PHYSICIAN Unavailable Unavailable Dhruv, M Balbina PEDIATRICS PHYSICIAN Unavailable Unavailable Dhruv, M Balbina PEDIATRICS PHYSICIAN Unavailable Unavailable Dhruv, M Balbina PEDIATRICS PHYSICIAN Unavailable Unavailable Dhruv, M Balbina PEDIATRICS PHYSICIAN Unavailable Unavailable Dhruv, M Balbina PEDIATRICS PHYSICIAN Unavailable Unavailable Dhruv, M Balbina PEDIATRICS PHYSICIAN Unavailable Unavailable Dhruv, M Balbina PEDIATRICS PHYSICIAN Unavailable Unavailable Dhruv, M Balbina PEDIATRICS PHYSICIAN Unavailable Unavailable Dhruv, M Balbina PEDIATRICS PHYSICIAN Unavailable Unavailable Re-disclosure Warning The records that [...] is protected by Article 27-F of the [facility] Public Health law. If you continue you may have access to information: Regarding HIV / AIDS; Provided by facilities licensed or operated by the [facility] Office of Mental Health; or Provided by the [facility] Office for People With Developmental Disabilities. If such information is present, then the following [facility] mandated warning applies: This information has been [...] law may result in a fine or penitentiary sentence or both. A general authorization for the release of medical or other information is NOT sufficient authorization for further disc losure. Allergies and Adverse Reactions Type Description Substance Reaction Status Data Source(s ) Propensity to adverse reactions NO KNOWN ALLERGIES NO KNOWN ALLERGIES [facility] Family History Family Member Name Family Member Gender Family Member Status Date o f Status Description Data Source(s) Unknown Unknown Problem MEDENT ([facility], ) mother Dx age 58 Encounters Encounter Providers Location Date Indications Data Source(s ) Outpatient 12/14/2020 12:00:00 AM EDT [facility] Outpatient Attender: JOANIE Alvarez/Kapil/Lasha/Sharron dl 12/12/2020 10:15:00 AM EDT MED[facility] ([facility]) Unknown [address] [facility] [address] [id number] 12/12/2020 12:00:00 AM EDT eCW1 ([facility]) Outpatient [address] [facility] [id number] 12/06/2020 12:00:00 AM EDT eCW1 ([facility]) Outpatient Attender: AMY LANDAVERDECReferrer: Ava SZYMANSKI SJP.DILLON-SJPRenoDILLON 12/03/2020 12:00:00 AM EDT - 12/03/2020 10:33:24 AM EDT [facility] Unknown [address] [facility] [place] [address] 11/14/2020 12:00:00 AM EDT eCW1 ([facility]) Unknown [address] [facility] [place] [address] 11/14/2020 12:00:00 AM EDT eCW1 ([facility]) Unknown [address] [facility] [place] [address] 11/12/2020 12:00:00 AM EDT eCW1 ([facility]) Unknown [address] [facility] [place] [address] 2020 12:00:00 AM EDT eCW1 ([facility]) Unknown [address] [facility] [address] 2020 12:00:00 AM EDT eCW1 ([facility]) (TCM) Transition of Care Visit [address] [place] [address] 10/24/2020 12:00:00 AM EDT eCW1 ([facility] [place]) Unknown [address] [facility] [place] [address] 10/22/2020 12:00:00 AM EDT eCW1 ([facility]) Unknown [address] [facility] [place] [address] 10/16/2020 12:00:00 AM EDT [facility] [place] [place] [address] [facility] [address] 10/12/2020 12:00:00 AM EDT [facility]) Outpatient Attender: AMY LANDAVERDECReferrer: Ava GARCIAP SJP.DILLON-SJP.DILLON 10/02/2020 12:00:00 AM EDT - 10/02/2020 11:06:04 AM EDT [facility] Unknown [address] [facility] [place] [address] 10/02/2020 12:00:00 AM EDT [facility] Unknown [address] [facility] [place] [address] 10/01/2020 12:00:00 AM EDT eCW1 ([facility]) Unknown [address] [facility] [place] [address] 09/14/2020 12:00:00 AM EDT [facility]CW[facility] Unknown [address] [facility] [place] [address] 09/11/2020 12:00:00 AM EDT eCW1 [facility] Outpatient [address] [facility] [place] [address] 09/11/2020 12:00:00 AM EDT [facility]CW1 ([facility]) Outpatient Attender: RONNA RAHMAN MDReferrer: Pelon Elam MD [id number] 09/07/2020 12:00:00 AM EDT - 09/07/2020 11:20:50 AM EDT Stable burst fracture of unspecified thoracic vertebra, initial encounter for closed fracture [facility] Stable burst fracture of unspecified tho racic vertebra, initial encounter for closed fracture Outpatient Referrer: RONNA RAHMAN MD 09/07/2020 1 2:00:00 AM EDT Stable burst fracture of unspecified thoracic vertebra, initial encounter for closed fracture [facility] Stable burst fracture of unspecified tho racic vertebra, initial encounter for closed fracture Outpatient Attender: AMY KIRAN-CReferrer: Ava Salmon PEDIATRICS PHYSICIAN SJP.DILLON-SJP.DILLON 09/03/2020 02:29:12 PM EDT - 09/03/2020 04:02:43 PM EDT [facility] Unknown [address] [facility] [place] [address] 08/30/2020 12:00:00 AM EDT eCW1 ([facility]) Unknown [address] [facility] [place] [address] 08/15/2020 12:00:00 AM EDT eCW1 ([facility]) Unknown [address] [facility] [place] [address] 08/14/2020 12:00:00 AM EDT eCW1 ([facility]) Outpatient [address] [facility] [place] [address] 08/14/2020 12:00:00 AM EDT eCW1 ([facility]) Outpatient [address] [facility] [place] [address] 08/07/2020 12:00:00 AM EDT eCW1 ([facility]) Unknown [address] [facility] [place] [address] 08/06/2020 12:00:00 AM EDT eCW1 ([facility]) Unknown [address] [facility] [address] [address] 07/31/2020 12:00:00 AM EDT eCW1 ([facility]) Outpatient [address] [facility] [place] [address] 07/31/2020 12:00:00 AM EDT eCW1 ([facility]) Unknown [address] [facility] [place] [address] 07/30/2020 12:00:00 AM EDT eCW1 ([facility]) Outpatient [address] [facility] [place] [address] 07/25/2020 12:00:00 AM EDT eCW1 ([facility]) Outpatient Referrer: Dat Lai [facility] 07/16/2020 12:00:00 AM EDT [facility] Emergency Attender: LEON FAROOQ PAReferrer : Jordyn Salmon [facility] EMERGENCY ROOM-ER 07/14/2020 06:15:00 PM EDT - 07/14/2020 09:25:00 PM EDT [facility] Patient discharged. Outpatient Attender: BAUDILIO LOPEZ MDAt tender: ROME HERNANDEZ MDAttender: BERT OMALLEY MDAdmitter: ROME HERNANDEZ MDReferrer: ROME HERNANDEZ MD [id number] 07/14/2020 12:00:00 AM EDT - 07/16/2020 03:36:00 PM EDT [facility] Other ascites Patient discharged. Outpatient 07/13/2020 09:33:06 AM EDT hosp D/C [facility] hosp D/C Admission cancelled. Disregard status an d admitted date. Outpatient 07/13/2020 12:00:00 AM EDT hosp D/C [facility] hosp D/C Outpatient Referrer: CAROLA KIRAN 07/13/2020 12:00: 00 AM EDT Unspecified fracture of unspecified thoracic vertebra, sequela [facility] Unspecified fracture of unspecified thor acic vertebra, sequela Outpatient Attender: Smith Sosa MD [id number] 07/13/2020 12:00:00 AM EDT - 07/13/2020 01:28:[address] [facility] spital Unlisted evaluation and management service 07/04/2020 12:32:00 PM EDT - 08/31/2020 02:21:00 PM EDT [facility] ([facility]) Outpatient Attender: JOANIE Paiz er: JOANIE FRANCOReferrer: Balbina SZYMANSKI 07/04/2020 12:00:00 AM EDT - 07/04/2020 03:45:00 PM EDT Other ascites [facility] Other ascites Patient discharged. Inpatient Attender: JOVNAA Lawler nder: FATMATA SIMONS MDAttender: TIMUR MAGUIRE .Admitter: [facility] MDReferrer: LEON FAROOQ PAConsultant: JOVANA Castillo MD A-06/12/2020 12:00:00 AM EDT - 06/19/2020 05:16:00 PM EDT Stable burst fracture of unspecified thoracic vertebra, initial encounter for closed fracture [facility] Stable burst fracture of unspecified tho racic vertebra, initial encounter for closed fracture Patient discharged. Emergency Attender: KARLA VIVEROS PAReferrer: Alphonso SZYMANSKI EMERGENCY ROOM-ER 06/11/2020 05:37:00 PM EDT - 06/11/2020 11:50:00 PM EDT [facility] Patient discharged. Unknown [address] [facility] [place] [address] 05/16/2020 12:00:00 AM EDT eCW ([facility]) Outpatient Attender: Axel RAMÍREZDILLON-SJP.DILLON 03/26 12:00:00 AM EST - 04/04/2020 11:39:12 AM EST [facility] Outpatient Attender: Axel Zepeda MDReferrer: Lewis STUBBS.DILLON-SJP.DILLON 03/15/2020 12:00:00 AM EST - 03/15/2020 02:58:10 PM EST [facility] Outpatient [address] [facility] [place] [address] 03/02/2020 12:00:00 AM EST eCW1 ([facility]) Unknown [address] [facility] [place] [address] 02/09/2020 12:00:00 AM EST eCW1 ([facility]) Outpatient Attender: Jordyn GARCIAPReferrer: Jordyn SZYMANSKI 02/08/2020 08:00:00 AM [facility] Unknown [address] [facility] [place] [address] 02/06/2020 12:00:00 AM EST eCW1 ([facility]) Outpatient [address] [facility] [place] [address] 01/24/2020 12:00:00 AM EST eCW1 ([facility]) Unknown [address] [facility] [place] [address] 01/15/2020 12:00:00 AM EST eCW1 ([facility]) Outpatient [address] [facility] [place] [address] 01/13/2020 12:00:00 AM EST eCW1 ([facility]) Unknown [address] [facility] [place] [address] 12/11/2019 12:00:00 AM EDT eCW1 ([facility]) Unknown [address] [facility] [place] [address] 11/29/2019 12:00:00 AM EDT eCW1 ([facility]) Immunizations Vaccine Date Status Description Data Source(s) influenza, recombinant, quadrIvalent,injectable, prese rvative free 12/06/2020 03:37:00 PM EDT completed eCW1 ([facility]) influenza, recombinant, quadrIvalent,injectable, prese rvative free 12/06/2020 03:37:00 PM EDT completed eCW1 ([facility]) Zoster 50mcg/0.5mL Shingrix 12/06/2020 03:36:00 PM EDT completed eCW1 ([facility]) Zoster 50mcg/0.5mL Shingrix 12/06/2020 03:36:00 PM EDT completed eCW1 ([facility]) Zoster 50mcg/0.5mL Shingrix 08/14/2020 11:42:00 AM EDT completed eCW1 ([facility]) Zoster 50mcg/0.5mL Shingrix 08/14/2020 11:42:00 AM EDT completed eCW1 ([facility]) Zoster 50mcg/0.5mL Shingrix 08/14/2020 11:42:00 AM EDT completed eCW1 ([facility]) Zoster 50mcg/0.5mL Shingrix 08/14/2020 11:42:00 AM EDT completed eCW1 ([facility]) Zoster 50mcg/0.5mL Shingrix 08/14/2020 11:42:00 AM EDT completed eCW1 ([facility]) Zoster 50mcg/0.5mL Shingrix 08/14/2020 11:42:00 AM EDT completed eCW1 ([facility]) Zoster 50mcg/0.5mL Shingrix 08/14/2020 11:42:00 AM EDT completed eCW1 ([facility]) Zoster 50mcg/0.5mL Shingrix 08/14/2020 11:42:00 AM EDT completed eCW1 ([facility]) Zoster 50mcg/0.5mL Shingrix 08/14/2020 11:42:00 AM EDT completed eCW1 ([facility]) Zoster 50mcg/0.5mL Shingrix 08/14/2020 11:42:00 AM EDT completed eCW1 ([facility]) Zoster 50mcg/0.5mL Shingrix 08/14/2020 11:42:00 AM EDT completed eCW1 ([facility]) Zoster 50mcg/0.5mL Shingrix 08/14/2020 11:42:00 AM EDT completed eCW1 ([facility]) Zoster 50mcg/0.5mL Shingrix 08/14/2020 11:42:00 AM EDT completed eCW1 ([facility]) Zoster 50mcg/0.5mL Shingrix 08/14/2020 11:42:00 AM EDT completed eCW1 ([facility]) Zoster 50mcg/0.5mL Shingrix 08/14/2020 11:42:00 AM EDT completed eCW1 ([facility]) Zoster 50mcg/0.5mL Shingrix 08/14/2020 11:42:00 AM EDT completed eCW1 ([facility]) Zoster 50mcg/0.5mL Shingrix 08/14/2020 11:42:00 AM EDT completed eCW1 ([facility]) Zoster 50mcg/0.5mL Shingrix 08/14/2020 11:42:00 AM EDT completed eCW1 ([facility]) Zoster 50mcg/0.5mL Shingrix 08/14/2020 11:42:00 AM EDT completed eCW1 ([facility]) Zoster 50mcg/0.5mL Shingrix 08/14/2020 11:42:00 AM EDT completed eCW1 ([facility]) Zoster 50mcg/0.5mL Shingrix 08/14/2020 11:42:00 AM EDT completed eCW1 ([facility]) pneumococcal polysaccharide PPV23 08/14/2020 11:41:00 AM EDT comple jaden eCW1 ([facility]) pneumococcal polysaccharide PPV23 08/14/2020 11:41:00 AM EDT comple jaden eCW1 ([facility]) pneumococcal polysaccharide PPV23 08/14/2020 11:41:00 AM EDT comple jaden eCW1 ([facility]) pneumococcal polysaccharide PPV23 08/14/2020 11:41:00 AM EDT comple jaden eCW1 ([facility]) pneumococcal polysaccharide PPV23 08/14/2020 11:41:00 AM EDT comple jaden eCW1 ([facility]) pneumococcal polysaccharide PPV23 08/14/2020 11:41:00 AM EDT comple jaden eCW1 ([facility]) pneumococcal polysaccharide PPV23 08/14/2020 11:41:00 AM EDT comple jaden eCW1 ([facility]) pneumococcal polysaccharide PPV23 08/14/2020 11:41:00 AM EDT comple jaden eCW1 ([facility]) pneumococcal polysaccharide PPV23 08/14/2020 11:41:00 AM EDT comple jaden eCW1 ([facility]) pneumococcal polysaccharide PPV23 08/14/2020 11:41:00 AM EDT comple jaden eCW1 ([facility]) pneumococcal polysaccharide PPV23 08/14/2020 11:41:00 AM EDT comple jaden eCW1 ([facility]) pneumococcal polysaccharide PPV23 08/14/2020 11:41:00 AM EDT comple jaden eCW1 ([facility]) pneumococcal polysaccharide PPV23 08/14/2020 11:41:00 AM EDT comple jaden eCW1 ([facility]) pneumococcal polysaccharide PPV23 08/14/2020 11:41:00 AM EDT comple jaden eCW1 ([facility]) pneumococcal polysaccharide PPV23 08/14/2020 11:41:00 AM EDT comple jaden eCW1 ([facility]) pneumococcal polysaccharide PPV23 08/14/2020 11:41:00 AM EDT comple jaden eCW1 ([facility]) pneumococcal polysaccharide PPV23 08/14/2020 11:41:00 AM EDT comple jaden eCW1 ([facility]) pneumococcal polysaccharide PPV23 08/14/2020 11:41:00 AM EDT comple jaden eCW1 ([facility]) pneumococcal polysaccharide PPV23 08/14/2020 11:41:00 AM EDT comple jaden eCW1 ([facility]) pneumococcal polysaccharide PPV23 08/14/2020 11:41:00 AM EDT comple jaden eCW1 ([facility]) pneumococcal polysaccharide PPV23 08/14/2020 11:41:00 AM EDT comple jaden eCW1 ([facility]) COVID-19 VACCINE Moderna 07/09/2020 12:00:00 AM EDT completed [employer] Vaccine Series Complete: YESThis Data wa s Submitted to [facility] Via [employer]. COVID-19 dose #2 given elsewhere Unspecified 07/06/2020 10:5 2:00 AM EDT completed eCW1 ([facility]) COVID-19 dose #2 given elsewhere Unspecified 07/06/2020 10:5 2:00 AM EDT completed eCW1 ([facility]) COVID-19 dose #2 given elsewhere Unspecified 07/06/2020 10:5 2:00 AM EDT completed eCW1 ([facility]) COVID-19 dose #2 given elsewhere Unspecified 07/06/2020 10:5 2:00 AM EDT completed eCW1 ([facility]) COVID-19 dose #2 given elsewhere Unspecified 07/06/2020 10:5 2:00 AM EDT completed eCW1 ([facility]) COVID-19 dose #2 given elsewhere Unspecified 07/06/2020 10:5 2:00 AM EDT completed eCW1 ([facility]) COVID-19 dose #2 given elsewhere Unspecified 07/06/2020 10:5 2:00 AM EDT completed eCW1 ([facility]) COVID-19 dose #2 given elsewhere Unspecified 07/06/2020 10:5 2:00 AM EDT completed eCW1 ([facility]) COVID-19 dose #2 given elsewhere Unspecified 07/06/2020 10:5 2:00 AM EDT completed eCW1 ([facility]) COVID-19 dose #2 given elsewhere Unspecified 07/06/2020 10:5 2:00 AM EDT completed eCW1 ([facility]) COVID-19 dose #2 given elsewhere Unspecified 07/06/2020 10:5 2:00 AM EDT completed eCW1 ([facility]) COVID-19 dose #2 given elsewhere Unspecified 07/06/2020 10:5 2:00 AM EDT completed eCW1 ([facility]) COVID-19 dose #2 given elsewhere Unspecified 07/06/2020 10:5 2:00 AM EDT completed eCW1 ([facility]) COVID-19 dose #2 given elsewhere Unspecified 07/06/2020 10:5 2:00 AM EDT completed eCW1 ([facility]) COVID-19 dose #2 given elsewhere Unspecified 07/06/2020 10:5 2:00 AM EDT completed eCW1 ([facility]) COVID-19 dose #2 given elsewhere Unspecified 07/06/2020 10:5 2:00 AM EDT completed eCW1 ([facility]) COVID-19 dose #2 given elsewhere Unspecified 07/06/2020 10:5 2:00 AM EDT completed eCW1 ([facility]) COVID-19 dose #2 given elsewhere Unspecified 07/06/2020 10:5 2:00 AM EDT completed eCW1 ([facility]) COVID-19 dose #2 given elsewhere Unspecified 07/06/2020 10:5 2:00 AM EDT completed eCW1 ([facility]) COVID-19 dose #2 given elsewhere Unspecified 07/06/2020 10:5 2:00 AM EDT completed eCW1 ([facility]) COVID-19 dose #2 given elsewhere Unspecified 07/06/2020 10:5 2:00 AM EDT completed eCW1 ([facility]) COVID-19 dose #1 given elsewhere Unspecified 05/17/2020 10:5 2:00 AM EDT completed eCW1 ([facility]) COVID-19 dose #1 given elsewhere Unspecified 05/17/2020 10:5 2:00 AM EDT completed eCW1 ([facility]) COVID-19 dose #1 given elsewhere Unspecified 05/17/2020 10:5 2:00 AM EDT completed eCW1 ([facility]) COVID-19 dose #1 given elsewhere Unspecified 05/17/2020 10:5 2:00 AM EDT completed eCW1 ([facility]) COVID-19 dose #1 given elsewhere Unspecified 05/17/2020 10:5 2:00 AM EDT completed eCW1 ([facility]) COVID-19 dose #1 given elsewhere Unspecified 05/17/2020 10:5 2:00 AM EDT completed eCW1 ([facility]) COVID-19 dose #1 given elsewhere Unspecified 05/17/2020 10:5 2:00 AM EDT completed eCW1 ([facility]) COVID-19 dose #1 given elsewhere Unspecified 05/17/2020 10:5 2:00 AM EDT completed eCW1 ([facility]) COVID-19 dose #1 given elsewhere Unspecified 05/17/2020 10:5 2:00 AM EDT completed eCW1 ([facility]) COVID-19 dose #1 given elsewhere Unspecified 05/17/2020 10:5 2:00 AM EDT completed eCW1 ([facility]) COVID-19 dose #1 given elsewhere Unspecified 05/17/2020 10:5 2:00 AM EDT completed eCW1 ([facility]) COVID-19 dose #1 given elsewhere Unspecified 05/17/2020 10:5 2:00 AM EDT completed eCW1 ([facility]) COVID-19 dose #1 given elsewhere Unspecified 05/17/2020 10:5 2:00 AM EDT completed eCW1 ([facility]) COVID-19 dose #1 given elsewhere Unspecified 05/17/2020 10:5 2:00 AM EDT completed eCW1 ([facility]) COVID-19 dose #1 given elsewhere Unspecified 05/17/2020 10:5 2:00 AM EDT completed eCW1 ([facility]) COVID-19 dose #1 given elsewhere Unspecified 05/17/2020 10:5 2:00 AM EDT completed eCW1 ([facility]) COVID-19 dose #1 given elsewhere Unspecified 05/17/2020 10:5 2:00 AM EDT completed eCW1 ([facility]) COVID-19 dose #1 given elsewhere Unspecified 05/17/2020 10:5 2:00 AM EDT completed eCW1 ([facility]) COVID-19 dose #1 given elsewhere Unspecified 05/17/2020 10:5 2:00 AM EDT completed eCW1 ([facility]) COVID-19 dose #1 given elsewhere Unspecified 05/17/2020 10:5 2:00 AM EDT completed eCW1 ([facility]) COVID-19 dose #1 given elsewhere Unspecified 05/17/2020 10:5 2:00 AM EDT completed eCW1 ([facility]) COVID-19 VACCINE Moderna 05/17/2020 12:00:00 AM EDT completed [employer] Vaccine Series Complete: NOThis Data was Submitted to [facility] Via [employer]. COVID-19 VACCINE, MRNA-[id number], LNP-S (MODERNA)/PF 05/17/2020 1 2:00:00 AM EDT completed [facility] influenza, recombinant, quadrIvalent,injectable, prese rvative free 01/13/2020 04:37:00 PM EST completed eCW1 ([facility]) influenza, recombinant, quadrIvalent,injectable, prese rvative free 01/13/2020 04:37:00 PM EST completed eCW1 ([facility]) influenza, recombinant, quadrIvalent,injectable, prese rvative free 01/13/2020 04:37:00 PM EST completed eCW1 ([facility]) influenza, recombinant, quadrIvalent,injectable, prese rvative free 01/13/2020 04:37:00 PM EST completed eCW1 ([facility]) influenza, recombinant, quadrIvalent,injectable, prese rvative free 01/13/2020 04:37:00 PM EST completed eCW1 ([facility]) influenza, recombinant, quadrIvalent,injectable, prese rvative free 01/13/2020 04:37:00 PM EST completed eCW1 ([facility]) influenza, recombinant, quadrIvalent,injectable, prese rvative free 01/13/2020 04:37:00 PM EST completed eCW1 ([facility]) influenza, recombinant, quadrIvalent,injectable, prese rvative free 01/13/2020 04:37:00 PM EST completed eCW1 ([facility]) influenza, recombinant, quadrIvalent,injectable, prese rvative free 01/13/2020 04:37:00 PM EST completed eCW1 ([facility]) influenza, recombinant, quadrIvalent,injectable, prese rvative free 01/13/2020 04:37:00 PM EST completed eCW1 ([facility]) influenza, recombinant, quadrIvalent,injectable, prese rvative free 01/13/2020 04:37:00 PM EST completed eCW1 ([facility]) influenza, recombinant, quadrIvalent,injectable, prese rvative free 01/13/2020 04:37:00 PM EST completed eCW1 ([facility]) influenza, recombinant, quadrIvalent,injectable, prese rvative free 01/13/2020 04:37:00 PM EST completed eCW1 ([facility]) influenza, recombinant, quadrIvalent,injectable, prese rvative free 01/13/2020 04:37:00 PM EST completed eCW1 ([facility]) influenza, recombinant, quadrIvalent,injectable, prese rvative free 01/13/2020 04:37:00 PM EST completed eCW1 ([facility]) influenza, recombinant, quadrIvalent,injectable, prese rvative free 01/13/2020 04:37:00 PM EST completed eCW1 ([facility]) influenza, recombinant, quadrIvalent,injectable, prese rvative free 01/13/2020 04:37:00 PM EST completed eCW1 ([facility]) influenza, recombinant, quadrIvalent,injectable, prese rvative free 01/13/2020 04:37:00 PM EST completed eCW1 ([facility]) influenza, recombinant, quadrIvalent,injectable, prese rvative free 01/13/2020 04:37:00 PM EST completed eCW1 ([facility]) influenza, recombinant, quadrIvalent,injectable, prese rvative free 01/13/2020 04:37:00 PM EST completed eCW1 ([facility]) influenza, recombinant, quadrIvalent,injectable, prese rvative free 01/13/2020 04:37:00 PM EST completed eCW1 ([facility]) influenza, recombinant, quadrIvalent,injectable, prese rvative free 01/13/2020 04:37:00 PM EST completed eCW1 ([facility]) influenza, recombinant, quadrIvalent,injectable, prese rvative free 01/13/2020 04:37:00 PM EST completed eCW1 ([facility]) influenza, recombinant, quadrIvalent,injectable, prese rvative free 01/13/2020 04:37:00 PM EST completed eCW1 ([facility]) influenza, recombinant, quadrIvalent,injectable, prese rvative free 01/13/2020 04:37:00 PM EST completed eCW1 ([facility]) influenza, recombinant, quadrIvalent,injectable, prese rvative free 01/13/2020 04:37:00 PM EST completed eCW1 ([facility]) influenza, recombinant, quadrIvalent,injectable, prese rvative free 01/13/2020 04:37:00 PM EST completed eCW1 ([facility]) influenza, recombinant, quadrIvalent,injectable, prese rvative free 01/13/2020 04:37:00 PM EST completed eCW1 ([facility]) influenza, recombinant, quadrIvalent,injectable, prese rvative free 01/13/2020 04:37:00 PM EST completed eCW1 ([facility]) influenza, recombinant, quadrIvalent,injectable, prese rvative free 01/13/2020 04:37:00 PM EST completed eCW1 ([facility]) influenza, recombinant, quadrIvalent,injectable, prese rvative free 01/13/2020 04:37:00 PM EST completed eCW1 ([facility]) influenza, recombinant, quadrIvalent,injectable, prese rvative free 01/13/2020 04:37:00 PM EST completed eCW1 ([facility]) influenza, recombinant, quadrIvalent,injectable, prese rvative free 01/13/2020 04:37:00 PM EST completed eCW1 ([facility]) influenza, recombinant, quadrIvalent,injectable, prese rvative free 01/13/2020 04:37:00 PM EST completed eCW1 ([facility]) Medications Medication Brand Name Start Date Product Form Dose Route Admi nistrative Instructions Pharmacy Instructions Status Indications Reaction Description Data Source(s) carvedilol 12.5 MG Oral Tablet CARVEDILOL 01/20/2021 12:00:00 AM EST tablet 60 TAKE ONE TABLET BY MOUTH TWICE A DAY WITH FOOD TAKE ON E TABLET BY MOUTH TWICE A DAY WITH FOOD SOLD: 01/21/2021 [facility] 20 mg 01/20/2021 12:00:00 AM EST tablet 30 TAKE ONE TABLET BY MOUTH EVERY DAY TAKE ONE TABLET BY MOUTH EVERY DAY SOLD: 01/21/2021 [facility] POLYETHYLENE GLYCOL 3350 142 MG/ML Oral Solution [Miralax] M iralax 12/12/2020 12:00:00 AM EDT active M EDENT ([facility], ) 17 gram/dose 12/12/2020 12:00:00 AM EDT powder [address] MCMILLAN COLON PREPARATIN INSTRUCTIONS USE DIRECTED SEE DR MCMILLAN COLON PREPARATIN INSTRUCTIONS SOLD: 12/15/2020 [facility] No Active Medications 12/12/2020 12:00:00 AM EDT completed MEDENT ([facility], ) Potassium Chloride 10 MEQ Extended Release Oral Tablet POTAS SIUM CHLORIDE 12/10/2020 12:00:00 AM EDT tablet extended release 60 TAKE ONE TABLET BY MOUTH TWICE A DAY WITH FOOD TAKE ONE TABLET BY MOUTH TWICE A DAY WITH FOOD SOLD: 12/10/2020 [facility] Potassium Chloride 10 MEQ Extended Relea se Oral Tablet Potassium Chloride ER 10 MEQ Potassium Chloride ER 10 MEQ 12/09/2020 12:00:00 AM EDT 1.0 {tablet_with_food} active Potassium Chl oride ER 10 MEQ eCW1 ([facility]) Potassium Chloride 10 MEQ Extended Relea se Oral Tablet Potassium Chloride ER 10 MEQ Potassium Chloride ER 10 MEQ 12/09/2020 12:00:00 AM EDT 1.0 {tablet_with_food} active Potassium Chl oride ER 10 MEQ eCW1 ([facility]) 25 mg 11/22/2020 12:00:00 AM EDT tablet 60 TAKE ONE TABLET BY MOUTH TWICE A DAY TAKE ONE TABLET BY MOUTH TWICE A DAY SOLD: 12/23/2020 [facility] 25 mg 11/22/2020 12:00:00 AM EDT tablet 60 TAKE ONE TABLET BY MOUTH TWICE A DAY TAKE ONE TABLET BY MOUTH TWICE A DAY SOLD: 11/24/2020 [facility] Hydroxyzine Hydrochloride 25 MG Oral Tablet hydrOXYzin e (ATARAX) 25 MG tablet hydrOXYzine (ATARAX) 25 MG tablet 2020 12:00:00 AM EDT active TAKE ONE TABLET BY MOUTH EVERY [facility] 12:00:00 AM EDT tablet [...] {tablet_as_needed} active hydrOXYzine HCl 25 MG eCW1 ([facility]) 25 mg 2020 12:00:00 AM EDT tablet 90 TAKE ONE TABLET BY MOUTH EVERY 8 HOURS NEEDED FOR ITCHING TAKE ONE TABLET BY MOUTH EVERY 8 HOURS A S NEEDED FOR ITCHING SOLD: 01/05/2021 [facility] Hydroxyzine Hydrochloride 25 MG Oral Tablet hydrOXYzin e HCl 25 MG hydrOXYzine HCl 25 MG 2020 12:00:00 AM EDT 1.0 {tablet_as_needed} active hydrOXYzine HCl 25 MG eCW1 ([facility]) Hydroxyzine Hydrochloride 25 MG Oral Tablet hydrOXYzin e HCl 25 MG hydrOXYzine HCl 25 MG 2020 12:00:00 AM EDT 1.0 {tablet_as_needed} active hydrOXYzine HCl 25 MG eCW1 ([facility]) Hydroxyzine Hydrochloride 25 MG Oral Tablet hydrOXYzin e HCl 25 MG hydrOXYzine HCl 25 MG 2020 12:00:00 AM EDT 1.0 {tablet_as_needed} active hydrOXYzine HCl 25 MG eCW1 ([facility]) Hydroxyzine Hydrochloride 25 MG Oral Tablet hydrOXYzin e HCl 25 MG hydrOXYzine HCl 25 MG 2020 12:00:00 AM EDT 1.0 {tablet_as_needed} active hydrOXYzine HCl 25 MG eCW1 ([facility]) Hydroxyzine Hydrochloride 25 MG Oral Tablet hydrOXYzin e HCl 25 MG hydrOXYzine HCl 25 MG 2020 12:00:00 AM EDT 1.0 {tablet_as_needed} active hydrOXYzine HCl 25 MG eCW1 ([facility]) Hydroxyzine Hydrochloride 25 MG Oral Tablet hydrOXYzin e HCl 25 MG hydrOXYzine HCl 25 MG 2020 12:00:00 AM EDT 1.0 {tablet_as_needed} active hydrOXYzine HCl 25 MG eCW1 ([facility]) Hydroxyzine Hydrochloride 25 MG Oral Tablet hydrOXYzin e HCl 25 MG hydrOXYzine HCl 25 MG 2020 12:00:00 AM EDT 1.0 {tablet_as_needed} active hydrOXYzine HCl 25 MG eCW1 ([facility]) 10 gram/15 mL 10/31/2020 12:00:00 AM EDT solution 240 TAKE 30ML BY MOUTH THREE TIMES A DAY TAKE 30ML BY MOUTH THREE TIMES A DAY SOLD: 01/13/2021 [facility] 10 gram/15 mL 10/31/2020 12:00:00 AM EDT solution 2365 TAKE 30ML BY MOUTH THREE TIMES A DAY TAKE 30ML BY MOUTH THREE TIMES A DAY SOLD: 2020 [facility] 10 gram/15 mL 10/31/2020 12:00:00 AM EDT solution 2125 TAKE 30ML BY MOUTH THREE TIMES A DAY TAKE 30ML BY MOUTH THREE TIMES A DAY SOLD: 01/18/2021 [facility] 10 gram/15 mL 10/31/2020 12:00:00 [...] tablet (20 mg total) by mouth daily [facility] 20 mg 10/02/2020 12:00:00 AM EDT tablet [...] TABLET BY MOUTH EVERY DAY SOLD: 10/08/2020 [facility] 20 mg 09/03/2020 12:00:00 AM EDT tablet 30 TAKE 5 TABLETS (100MG) BY MOUTH UNTIL YOUR PARACENTESIS (TAKE UNTIL THURSDAY) THEN RESUME 1 TABLET DAILY TAKE 5 TABLETS (100MG) BY MOUTH UNTIL YOUR PARACENTESIS (TAKE UNTIL THURSDAY) THEN RESUME 1 TABLET DAILY SOLD: 09/03/2020 [facility] torsemide 20 MG Oral Tablet torsemide (DEMADEX) 20 MG tablet torsemide (DEMADEX) 20 MG tablet 09/03/2020 12:00:00 AM EDT 20 mg Oral acti ve Take 1 tablet (20 mg total) by mouth See Admin Instructions Take five 20mg tabs (100mg total) until your paracentesis (take until Thursday) Then resume at 1 tab (20mg total) daily [facility] torsemide 20 MG Oral Tablet Torsemide 20 MG Oral Table t (DEMADEX) Torsemide 20 MG Oral Tablet (DEMADEX) 09/03/2020 12:00:00 AM EDT 20 mg Oral active Take 20 mg by mouth [facility] 20 mg 08/17/2020 12:00:00 AM EDT tablet 30 TAKE ONE TABLET BY MOUTH EVERY DAY TAKE ONE TABLET BY MOUTH EVERY DAY SOLD: 08/19/2020 [facility] Furosemide 20 MG Oral Tablet furosemide (LASIX) 20 MG tablet furosemide (LASIX) 20 MG tablet 08/17/2020 12:00:00 AM EDT 20 mg Oral abort ed Take 20 mg by mouth daily [facility] 20 mg 08/17/2020 12:00:00 AM EDT tablet 30 TAKE ONE TABLET BY MOUTH EVERY DAY TAKE ONE TABLET BY MOUTH EVERY DAY SOLD: 09/29/2020 [facility] carvedilol 12.5 MG Oral Tablet CARVEDILOL 08/14/2020 12:00:00 AM EDT tablet 60 TAKE ONE TABLET BY MOUTH TWICE A DAY WITH FOOD TAKE ON E TABLET BY MOUTH TWICE A DAY WITH FOOD SOLD: 11/03/2020 [facility] carvedilol 12.5 MG Oral Tablet Carvedilol 12.5 MG Carvedilol 12.5 MG 08/14/2020 12:00:00 AM EDT 1.0 {tablet_with_food} active Carvedilol 12.5 MG eCW1 ([facility]) carvedilol 12.5 MG Oral Tablet Carvedilol 12.5 MG Carvedilol 12.5 MG 08/14/2020 12:00:00 AM EDT 1.0 {tablet_with_food} active Carvedilol 12.5 MG eCW1 ([facility]) carvedilol 12.5 MG Oral Tablet Carvedilol 12.5 MG Carvedilol 12.5 MG 08/14/2020 12:00:00 AM EDT 1.0 {tablet_with_food} active Carvedilol 12.5 MG eCW1 ([facility]) carvedilol 12.5 MG Oral Tablet Carvedilol 12.5 MG Carvedilol 12.5 MG 08/14/2020 12:00:00 AM EDT 1.0 {tablet_with_food} active Carvedilol 12.5 MG eCW1 ([facility]) carvedilol 12.5 MG Oral Tablet Carvedilol 12.5 MG Carvedilol 12.5 MG 08/14/2020 12:00:00 AM EDT 1.0 {tablet_with_food} active Carvedilol 12.5 MG eCW1 ([facility]) carvedilol 12.5 MG Oral Tablet Carvedilol 12.5 MG Carvedilol 12.5 MG 08/14/2020 12:00:00 AM EDT 1.0 {tablet_with_food} active Carvedilol 12.5 MG eCW1 ([facility]) carvedilol 12.5 MG Oral Tablet carvedilol (COREG) 12.5 MG tablet carvedilol (COREG) 12.5 MG tablet 08/14/2020 12:00:00 AM EDT 12.5 mg Oral active Take 12.5 mg by mouth 2 (two) times a day [facility] carvedilol 12.5 MG Oral Tablet Carvedilol 12.5 MG Carvedilol 12.5 MG 08/14/2020 12:00:00 AM EDT 1.0 {tablet_with_food} active Carvedilol 12.5 MG eCW1 ([facility]) carvedilol 12.5 MG Oral Tablet Carvedilol 12.5 MG Carvedilol 12.5 MG 08/14/2020 12:00:00 AM EDT 1.0 {tablet_with_food} active Carvedilol 12.5 MG eCW1 ([facility]) carvedilol 12.5 MG Oral Tablet Carvedilol 12.5 MG Carvedilol 12.5 MG 08/14/2020 12:00:00 AM EDT 1.0 {tablet_with_food} active Carvedilol 12.5 MG eCW1 ([facility]) carvedilol 12.5 MG Oral Tablet Carvedilol 12.5 MG Carvedilol 12.5 MG 08/14/2020 12:00:00 AM EDT 1.0 {tablet_with_food} active Carvedilol 12.5 MG eCW1 ([facility]) carvedilol 12.5 MG Oral Tablet Carvedilol 12.5 MG Carvedilol 12.5 MG 08/14/2020 12:00:00 AM EDT 1.0 {tablet_with_food} active Carvedilol 12.5 MG eCW1 ([facility]) carvedilol 12.5 MG Oral Tablet Carvedilol 12.5 MG Carvedilol 12.5 MG 08/14/2020 12:00:00 AM EDT 1.0 {tablet_with_food} active Carvedilol 12.5 MG eCW1 ([facility]) carvedilol 12.5 MG Oral Tablet CARVEDILOL 08/14/2020 12:00:00 AM EDT tablet 60 TAKE ONE TABLET BY MOUTH TWICE A DAY WITH FOOD TAKE ON E TABLET BY MOUTH TWICE A DAY WITH FOOD SOLD: 08/16/2020 [facility] carvedilol 12.5 MG Oral Tablet Carvedilol 12.5 MG Carvedilol 12.5 MG 08/14/2020 12:00:00 AM EDT 1.0 {tablet_with_food} active Carvedilol 12.5 MG eCW1 ([facility]) carvedilol 12.5 MG Oral Tablet CARVEDILOL 08/14/2020 12:00:00 AM EDT tablet 60 TAKE ONE TABLET BY MOUTH TWICE A DAY WITH FOOD TAKE ON E TABLET BY MOUTH TWICE A DAY WITH FOOD SOLD: 12/19/2020 [facility] carvedilol 12.5 MG Oral Tablet Carvedilol 12.5 MG Carvedilol 12.5 MG 08/14/2020 12:00:00 AM EDT 1.0 {tablet_with_food} active Carvedilol 12.5 MG eCW1 ([facility]) carvedilol 12.5 MG Oral Tablet Carvedilol 12.5 MG Carvedilol 12.5 MG 08/14/2020 12:00:00 AM EDT 1.0 {tablet_with_food} active Carvedilol 12.5 MG eCW1 ([facility]) carvedilol 12.5 MG Oral Tablet Carvedilol 12.5 MG Carvedilol 12.5 MG 08/14/2020 12:00:00 AM EDT 1.0 {tablet_with_food} active Carvedilol 12.5 MG eCW1 ([facility]) carvedilol 12.5 MG Oral Tablet Carvedilol 12.5 MG Carvedilol 12.5 MG 08/14/2020 12:00:00 AM EDT 1.0 {tablet_with_food} active Carvedilol 12.5 MG eCW1 ([facility]) carvedilol 12.5 MG Oral Tablet Carvedilol 12.5 MG Carvedilol 12.5 MG 08/14/2020 12:00:00 AM EDT 1.0 {tablet_with_food} active Carvedilol 12.5 MG eCW1 ([facility]) carvedilol 12.5 MG Oral Tablet Carvedilol 12.5 MG Carvedilol 12.5 MG 08/14/2020 12:00:00 AM EDT 1.0 {tablet_with_food} active Carvedilol 12.5 MG eCW1 ([facility]) carvedilol 12.5 MG Oral Tablet Carvedilol 12.5 MG Carvedilol 12.5 MG 08/14/2020 12:00:00 AM EDT 1.0 {tablet_with_food} active Carvedilol 12.5 MG eCW1 ([facility]) carvedilol 12.5 MG Oral Tablet Carvedilol 12.5 MG Carvedilol 12.5 MG 08/14/2020 12:00:00 AM EDT 1.0 {tablet_with_food} active Carvedilol 12.5 MG eCW1 ([facility]) 25 mg 08/01/2020 12:00:00 AM EDT tablet [...] suspended Nicoderm CQ 21 MG/24 HR eCW1 ([facility]) 24 HR Nicotine 0.875 MG/HR Transdermal P atch [Nicoderm C-Q] Nicoderm CQ 21 MG/24HR Nicoderm CQ 21 MG/24HR 07/25/2020 12:00:00 AM EDT 1.0 {patch_to_skin} active Nicoderm CQ 21 MG/24 HR eCW1 ([facility]) 24 HR Nicotine 0.875 MG/HR Transdermal P atch [Nicoderm C-Q] Nicoderm CQ 21 MG/24HR Nicoderm CQ 21 MG/24HR 07/25/2020 12:00:00 AM EDT 1.0 {patch_to_skin} active Nicoderm CQ 21 MG/24 HR eCW1 ([facility]) 24 HR Nicotine 0.875 MG/HR Transdermal P atch [Nicoderm C-Q] Nicoderm CQ 21 MG/24HR Nicoderm CQ 21 MG/24HR 07/25/2020 12:00:00 AM EDT 1.0 {patch_to_skin} active Nicoderm CQ 21 MG/24 HR eCW1 ([facility]) 24 HR Nicotine 0.875 MG/HR Transdermal P atch [Nicoderm C-Q] Nicoderm CQ 21 MG/24HR Nicoderm CQ 21 MG/24HR 07/25/2020 12:00:00 AM EDT 1.0 {patch_to_skin} active Nicoderm CQ 21 MG/24 HR eCW1 ([facility]) 24 HR Nicotine 0.875 MG/HR Transdermal P atch [Nicoderm C-Q] Nicoderm CQ 21 MG/24HR Nicoderm CQ 21 MG/24HR 07/25/2020 12:00:00 AM EDT 1.0 {patch_to_skin} suspended Nicoderm CQ 21 MG/24 HR eCW1 ([facility]) 24 HR Nicotine 0.875 MG/HR Transdermal P atch [Nicoderm C-Q] Nicoderm CQ 21 MG/24HR Nicoderm CQ 21 MG/24HR 07/25/2020 12:00:00 AM EDT 1.0 {patch_to_skin} active Nicoderm CQ 21 MG/24 HR eCW1 ([facility]) 24 HR Nicotine 0.875 MG/HR Transdermal P atch [Nicoderm C-Q] Nicoderm CQ 21 MG/24HR Nicoderm CQ 21 MG/24HR 07/25/2020 12:00:00 AM EDT 1.0 {patch_to_skin} active Nicoderm CQ 21 MG/24 HR eCW1 ([facility]) 24 HR Nicotine 0.875 MG/HR Transdermal P atch [Nicoderm C-Q] Nicoderm CQ 21 MG/24HR Nicoderm CQ 21 MG/24HR 07/25/2020 12:00:00 AM EDT 1.0 {patch_to_skin} active Nicoderm CQ 21 MG/24 HR eCW1 ([facility]) 24 HR Nicotine 0.875 MG/HR Transdermal P atch [Nicoderm C-Q] Nicoderm CQ 21 MG/24HR Nicoderm CQ 21 MG/24HR 07/25/2020 12:00:00 AM EDT 1.0 {patch_to_skin} active Nicoderm CQ 21 MG/24 HR eCW1 ([facility]) 24 HR Nicotine 0.875 MG/HR Transdermal P atch [Nicoderm C-Q] Nicoderm CQ 21 MG/24HR Nicoderm CQ 21 MG/24HR 07/25/2020 12:00:00 AM EDT 1.0 {patch_to_skin} active Nicoderm CQ 21 MG/24 HR eCW1 ([facility]) 24 HR Nicotine 0.875 MG/HR Transdermal P atch [Nicoderm C-Q] Nicoderm CQ 21 MG/24HR Nicoderm CQ 21 MG/24HR 07/25/2020 12:00:00 AM EDT 1.0 {patch_to_skin} active Nicoderm CQ 21 MG/24 HR eCW1 ([facility]) 24 HR Nicotine 0.875 MG/HR Transdermal P atch [Nicoderm C-Q] Nicoderm CQ 21 MG/24HR Nicoderm CQ 21 MG/24HR 07/25/2020 12:00:00 AM EDT 1.0 {patch_to_skin} active Nicoderm CQ 21 MG/24 HR eCW1 ([facility]) 21 mg/24 hr 07/25/2020 12:00:00 AM EDT patch 24 hour 28 APPLY ONE PATCH TOPICALLY TO SKIN DAILY APPLY ONE PATCH TOPICALLY TO SKIN DAILY SOLD: 07/27/19 21 [facility] 24 HR Nicotine 0.875 MG/HR Transdermal P atch [Nicoderm C-Q] Nicoderm CQ 21 MG/24HR Nicoderm CQ 21 MG/24HR 07/25/2020 12:00:00 AM EDT 1.0 {patch_to_skin} active Nicoderm CQ 21 MG/24 HR eCW1 ([facility]) 24 HR Nicotine 0.875 MG/HR Transdermal P atch [Nicoderm C-Q] Nicoderm CQ 21 MG/24HR Nicoderm CQ 21 MG/24HR 07/25/2020 12:00:00 AM EDT 1.0 {patch_to_skin} active Nicoderm CQ 21 MG/24 HR eCW1 ([facility]) 24 HR Nicotine 0.875 MG/HR Transdermal P atch [Nicoderm C-Q] Nicoderm CQ 21 MG/24HR Nicoderm CQ 21 MG/24HR 07/25/2020 12:00:00 AM EDT 1.0 {patch_to_skin} active Nicoderm CQ 21 MG/24 HR eCW1 ([facility]) 24 HR Nicotine 0.875 MG/HR Transdermal P atch [Nicoderm C-Q] Nicoderm CQ 21 MG/24HR Nicoderm CQ 21 MG/24HR 07/25/2020 12:00:00 AM EDT 1.0 {patch_to_skin} active Nicoderm CQ 21 MG/24 HR eCW1 ([facility]) 24 HR Nicotine 0.875 MG/HR Transdermal P atch [Nicoderm C-Q] Nicoderm CQ 21 MG/24HR Nicoderm CQ 21 MG/24HR 07/25/2020 12:00:00 AM EDT 1.0 {patch_to_skin} active Nicoderm CQ 21 MG/24 HR eCW1 ([facility]) 24 HR Nicotine 0.875 MG/HR Transdermal P atch [Nicoderm C-Q] Nicoderm CQ 21 MG/24HR Nicoderm CQ 21 MG/24HR 07/25/2020 12:00:00 AM EDT 1.0 {patch_to_skin} active Nicoderm CQ 21 MG/24 HR eCW1 ([facility]) 24 HR Nicotine 0.875 MG/HR Transdermal P atch [Nicoderm C-Q] Nicoderm CQ 21 MG/24HR Nicoderm CQ 21 MG/24HR 07/25/2020 12:00:00 AM EDT 1.0 {patch_to_skin} active Nicoderm CQ 21 MG/24 HR eCW1 ([facility]) 24 HR Nicotine 0.875 MG/HR Transdermal P atch [Nicoderm C-Q] Nicoderm CQ 21 MG/24HR Nicoderm CQ 21 MG/24HR 07/25/2020 12:00:00 AM EDT 1.0 {patch_to_skin} active Nicoderm CQ 21 MG/24 HR eCW1 ([facility]) 24 HR Nicotine 0.875 MG/HR Transdermal P atch [Nicoderm C-Q] Nicoderm CQ 21 MG/24HR Nicoderm CQ 21 MG/24HR 07/25/2020 12:00:00 AM EDT 1.0 {patch_to_skin} active Nicoderm CQ 21 MG/24 HR eCW1 ([facility]) 24 HR Nicotine 0.875 MG/HR Transdermal P atch [Nicoderm C-Q] Nicoderm CQ 21 MG/24HR Nicoderm CQ 21 MG/24HR 07/25/2020 12:00:00 AM EDT 1.0 {patch_to_skin} active Nicoderm CQ 21 MG/24 HR eCW1 ([facility]) 24 HR Nicotine 0.875 MG/HR Transdermal P atch [Nicoderm C-Q] Nicoderm CQ 21 MG/24HR Nicoderm CQ 21 MG/24HR 07/25/2020 12:00:00 AM EDT 1.0 {patch_to_skin} active Nicoderm CQ 21 MG/24 HR eCW1 ([facility]) 24 HR Nicotine 0.875 MG/HR Transdermal P atch [Nicoderm C-Q] Nicoderm CQ 21 MG/24HR Nicoderm CQ 21 MG/24HR 07/25/2020 12:00:00 AM EDT 1.0 {patch_to_skin} active Nicoderm CQ 21 MG/24 HR eCW1 ([facility]) 24 HR Nicotine 0.875 MG/HR Transdermal P atch [Nicoderm C-Q] Nicoderm CQ 21 MG/24HR Nicoderm CQ 21 MG/24HR 07/25/2020 12:00:00 AM EDT 1.0 {patch_to_skin} active Nicoderm CQ 21 MG/24 HR eCW1 ([facility]) pantoprazole 40 MG Delayed Release Oral Tablet PANTOPRAZOLE SODIUM 07/18/2020 12:00:00 AM EDT tablet,delayed release (DR/EC) 30 T MORGAN ONE TABLET BY MOUTH EVERY DAY TAKE ONE TABLET BY MOUTH EVERY DAY SOLD: 07/19/2020 [facility] albumin human (ALBUMINAR) 25 % bottle 37.5 g [id number] 07/16/2020 11:15:00 AM EDT 37.5 g Intravenous completed 37 .5 g, Intravenous, at 150 mL/hr, Once, On Thu07/16/20 at 1115, For 1 dose [facility] Medication administered onsite lidocaine (XYLOCAINE) 2 % injection [id number] 07/16/2020 10:16:18 AM EDT completed Code/Trauma Medicati on, Starting on Thu07/16/20 at 1016 [facility] Medication administered onsite Lidocaine 5 % External Patch (LIDODERM) [id number] 07/17/19 12:00:00 AM EDT 1 {patch} Transdermal active Place 1 pa tch onto the skin every 24 (twenty-four) hours 12 hours on 12 hours off for back pain [facility] sennosides, LONG-TERM 8.6 MG Oral Tablet senna tablet 2 tablet sen na tablet 2 tablet 07/15/2020 10:00:00 PM EDT 2 {tbl} Oral active 2 tablet, Oral, Nightly, First dose on 07/15/20 at 2200, For 30 days [facility] Medication administered onsite lidocaine (LIDODERM) 5 % patch 1 patch [id number] 05:00:00 PM EDT 1 {patch} Transdermal active 1 patch, T ransdermal, Every 24 hours, First dose on 07/15/20 at 1700, For 30 days
Apply to thoracic spine for pain every day 12 hours on - 12 hours off
Time to remove patch: 5:00 AM [facility] Medication administered onsite Acetaminophen 325 MG Oral [...] mg from all sources in 24 hours.
[facility] Medication administered onsite carvedilol 6.25 MG Oral Tablet carvedilol (COREG) tabl et 6.25 mg carvedilol (COREG) tablet 6.25 mg 07/15/2020 09:00:00 AM EDT 6.25 mg Oral active 6.25 mg, Oral, 2 Times Daily, First dose on 07/15/20 at 0900, For 30 days
Check vital signs before administering
[facility] Medication administered onsite Lactulose 667 MG/ML Oral Solution lactulose (CHRONULAC ) solution 30 mL lactulose (CHRONULAC) solution 30 mL 07/15/2020 09:00:00 AM EDT 30 mL Oral active 30 mL, Oral, Three Times Daily Standard , First dose on 07/15/20 at 0900, For 30 days [facility] Medication administered onsite pantoprazole 40 MG Delayed Release Oral Tablet pantoprazole (PROTONIX) EC tablet 40 mg pantoprazole (PROTONIX) EC tablet 40 mg 07/15/2020 09:00:00 AM E DT 40 mg Oral active 40 mg, Ora l, 2 Times Daily, First dose on 07/15/20 at 0900, For 30 days
Do not crush or chew
[facility] Medication administered onsite Folic Acid 1 MG Oral Tablet folic acid (FOLVITE) table t 1 mg folic acid (FOLVITE) tablet 1 mg 07/15/2020 09:00:00 AM EDT 1 mg Oral active 1 mg, Oral, Daily Standard, First dose on 07/15/20 at 0900, For 30 days [facility] Medication administered onsite Furosemide 20 MG Oral Tablet furosemide (LASIX) tablet 20 mg furosemide (LASIX) tablet 20 mg 07/15/2020 09:00:00 AM EDT 20 mg Oral activ e 20 mg, Oral, Daily Standard, First dose on 07/15/20 at 0900, For 30 days [facility] Medication administered onsite Thiamine 100 MG Oral Tablet thiamine (B-1) tablet 100 mg thiamine (B-1) tablet 100 mg 07/15/2020 09:00:00 AM EDT 100 mg Oral active 100 mg, Oral, Daily Standard, First dose on 07/15/20 at 0900, For 30 days [facility] Medication administered onsite Spironolactone 25 MG Oral Tablet spironolactone (ALDAC TONE) tablet 25 mg spironolactone (ALDACTONE) tablet 25 mg 07/15/2020 09:00:00 AM EDT 25 mg Oral active 25 mg, Oral, Da ashley Standard, First dose on 07/15/20 at 0900, For 30 days [facility] Medication administered onsite Acetaminophen 325 MG Oral Tablet acetaminophen (TYLENO L) tablet 650 mg acetaminophen (TYLENOL) tablet 650 mg 07/15/2020 06:30:00 AM EDT 65 0 mg Oral completed 650 mg, Oral, O nce, On 07/15/20 at 0630, For 1 dose
Maximum daily dose of acetaminophen is 3,000 mg from all sources in 24 hours.
[facility] Medication administered onsite Benzocaine 15 MG / Menthol 3.6 MG Oral L ozenge benzocaine-menthol (CEPACOL) 15- 3.6 MG per lozenge 1 lozenge benzocaine-menthol (CEPACOL) 15-3.6 MG p er lozenge 1 lozenge 07/15/2020 06:07:30 AM EDT 1 {lozenge} Mouth/Throat active 1 lozenge, Mouth/Throat, Every 2 hours PRN, Sore Throat, Starting on Thu07/15/20 at 0607, For 30 days [facility] Medication administered onsite 25 mg 07/15/2020 12:00:00 AM EDT tablet 30 TAKE ONE TABLET BY MOUTH EVERY DAY TAKE ONE TABLET BY MOUTH EVERY DAY SOLD: 07/17/2020 [facility] carvedilol 6.25 MG Oral Tablet CARVEDILOL 07/15/2020 12:00:00 AM EDT tablet 60 TAKE ONE TABLET BY MOUTH TWICE A DAY TAKE ONE TABLET BY MOUT H TWICE A DAY SOLD: 07/17/2020 [facility] 20 mg 07/15/2020 12:00:00 AM EDT tablet 30 TAKE ONE TABLET BY MOUTH EVERY DAY TAKE ONE TABLET BY MOUTH EVERY DAY SOLD: 07/17/2020 [facility] Lactulose 667 MG/ML Oral Solution lactulose (CHRONULAC ) 10 GM/15ML solution lactulose (CHRONULAC) 10 GM/15ML solution 07/13/2020 12:00:00 AM EDT active TAKE 30ML BY MOUTH THREE TIMES A DAY [facility] 10 gram/15 mL 07/13/2020 12:00:00 AM EDT solution 2700 TAKE 30ML BY MOUTH THREE TIMES A DAY TAKE 30ML BY MOUTH THREE TIMES A DAY SOLD: 07/17/2020 [employer] sodium chloride (preservative free) 0.9 % flush [...] For 1 occurrence
Pre-op [Order 4 End] [facility] Medication administered onsite albumin human (ALBUMINAR) 25 % bottle 50 g [id number] 07/04/2020 02:00:00 PM EDT 50 g Intravenous completed 50 g, Intravenous, at 200 mL/hr, Once, On Thu07/04/20 at 1400, For 1 dose [facility] Medication administered onsite lidocaine (PF) (XYLOCAINE) 1 % injection [id number] 07/04/2020 12:58: 23 PM EDT completed Code/Trauma Medicati on, Starting on Thu07/04/20 at 1258 [facility] Medication administered onsite sodium chloride 0.9 % bag 3-20 mL [id number] 07/04/2020 12:29:48 PM EDT mL Intravenous active 3-20 mL, Intr avenous, at 1-999 mL/hr, PRN, For Medication Administration and Line Clearance, Starting on Thu07/04/20 at 1229, For 30 days, Pre-op
Flush line with sufficient amount of fluid needed based on base cloth inspector recommendation for specific line size. Rate should be run at the same rate as medication in the line being flushed.
[facility] Medication administered onsite Ibuprofen 600 MG Oral Tablet ibuprofen (ADVIL,MOTRIN) 600 MG tablet ibuprofen (ADVIL,MOTRIN) 600 MG tablet 06/20/2020 12:00:00 AM EDT aborted daily [facility] Furosemide 20 MG Oral Tablet Furosemide 20 MG Oral Tab let (LASIX) Furosemide 20 MG Oral Tablet (LASIX) 06/20/2020 12:00:00 AM EDT 20 mg Oral active Take 1 tablet by mouth daily [facility] Furosemide 20 MG Oral Tablet furosemide (LASIX) tablet 20 mg furosemide (LASIX) tablet 20 mg 06/19/2020 09:00:00 AM EDT 20 mg Oral activ e 20 mg, Oral, Daily Standard, First dose (after last modification) on Thu06/19/20 at 0900, For 26 doses [facility] Medication administered onsite Calcium Carbonate 500 MG Chewable Tablet calcium carbonate (TUMS) chewable tablet 500 mg calcium carbonate (TUMS) chewable tablet 500 mg 2020 04:15:00 AM EDT 500 mg Oral active 500 mg, Oral, Three Times Daily- PRN, Indigestion, Heartburn, Starting on Thu06/19/20 at 0415, For 72 hours [facility] Medication administered onsite Famotidine 20 MG Oral Tablet famotidine (PEPCID) table t 20 mg famotidine (PEPCID) tablet 20 mg 06/19/2020 04:07:06 AM EDT 20 mg Oral active 20 mg, Oral, Daily PRN, dyspepsia, GERD, Starting on Thu06/19/20 at 0407, For 30 days [facility] Medication administered onsite Lactulose 667 MG/ML Oral Solution Lactul ose 10 GM/15ML Oral Solution (CHRONULAC) Lactulose 10 GM/15ML Oral Solution (CHRONULAC) 06/19/2020 12:00: 00 AM EDT 30 mL Oral active Take 30 mLs by mouth Thr ee times daily [facility] sennosides, LONG-TERM 8.6 MG Oral Tablet Senna 8.6 MG Oral T ablet Senna 8.6 MG Oral Tablet 06/19/2020 12:00:00 AM EDT 2 {tbl} Oral active Take 2 tablets by mouth nightly [facility] Thiamine 100 MG Oral Tablet Thiamine HCl 100 MG Oral T ablet (B-1) Thiamine HCl 100 MG Oral Tablet (B-1) 06/19/2020 12:00:00 AM EDT 100 mg Oral active Take 1 tablet [facility] 6.25 MG Oral Tablet Carvedilol 6.25 MG Oral Tablet (COREG) Carvedilol 6.25 MG Oral Tablet (COREG) 06/19/2020 12:00:00 AM EDT 6.25 mg Oral active Take 1 tablet by mouth Two Times Daily [facility] Docusate Sodium 100 MG Oral Capsule Docu sate Sodium 100 MG Oral Capsule (COLACE) Docusate Sodium 100 MG Oral Capsule (COLACE) 06/19/2020 12:00:00 AM EDT 100 mg Oral active Take 1 capsule by mouth Two Times Daily for 10 days [facility] Folic Acid 1 MG Oral Tablet Folic Acid 1 MG Oral Table t (FOLVITE) Folic Acid 1 MG Oral Tablet (FOLVITE) 06/19/2020 12:00:00 AM EDT 1 mg Oral active Take 1 tablet by mouth daily [facility] hypromellose 25 MG/ML Ophthalmic Solutio n Hypromellose 2.5 % Ophthalmic Solution (GONIOSOL) Hypromellose 2.5 % Ophthalmic Solution (GONIOSOL) 05/25 12:00:00 AM EDT 1 [drp] Both Eyes active Place 1 drop into both eyes Three times daily as needed [facility] albumin human (ALBUMINAR) 25 % bottle 25 g [id number] 06/18/2020 02:00:00 PM EDT 25 g Intravenous completed 25 g, Intravenous, at 100 mL/hr, Once, On Thu06/18/20 at 1400, For 1 dose [facility] Medication administered onsite Thiamine 100 MG Oral Tablet thiamine (B-1) tablet 100 mg thiamine (B-1) tablet 100 mg 06/16/2020 08:00:00 AM EDT 100 mg Oral active 100 mg, Oral, Three Times Daily, First dose on Thu06/16/20 at 0800, For 14 days [facility] Medication administered onsite Furosemide 20 MG Oral Tablet furosemide (LASIX) tablet 10 mg furosemide (LASIX) tablet 10 mg 06/15/2020 09:00:00 AM EDT 10 mg Oral abort ed 10 mg, Oral, Daily Standard, First dose on Thu06/15/20 at 0900, For 30 days [facility] Medication administered onsite sodium phosphate infusion 6 mmol/100 mL (premix) 06/15 08:00:00 AM EDT 6 mmol Intravenous completed 6 mmol, Intravenous, at 25 mL/hr, Once, On Thu06/15/20 at 0800, For 1 dose
Slower infusion rate (e.g. over 4 to 6 hours) are recommended in patients with renal impairment and/or less severe hypoph osphatemia.
[facility] Medication administered onsite carvedilol 6.25 MG Oral Tablet carvedilol (COREG) tabl et 6.25 mg carvedilol (COREG) tablet 6.25 mg 06/14/2020 09:00:00 PM EDT 6.25 mg Oral active 6.25 mg, Oral, 2 Times Daily, First dose (after last modification) on Thu06/14/20 at 2100, For 30 days
Check vital signs before administering
[facility] Medication administered onsite Spironolactone 25 MG Oral Tablet spironolactone (ALDAC TONE) tablet 25 mg spironolactone (ALDACTONE) tablet 25 mg 06/14/2020 04:00:00 PM EDT 25 mg Oral active 25 mg, Oral, Da ashley Standard, First dose on Thu06/14/20 at 1600, For 30 days [facility] Medication administered onsite magnesium sulfate in dextrose 5 % infusion (premix) 1 g [id number] 06/14/2020 11:00:00 AM EDT 1 g Intravenous completed 1 g, Intravenous, Administer over 60 Minutes, Once, On Thu06/14/20 at 1100, For 1 dose [facility] Medication administered onsite potassium chloride (K-DUR) dissolvable tablet 40 mEq [id number] 99-01 06/14/2020 08:00:00 AM EDT 40 meq Oral completed 40 mEq, Oral, 2 Times Daily, First dose on Thu06/14/20 at 0800, For 1 day
May be dissolved in water for patients with a G-Tube or unable to swallow
[facility] Medication administered onsite albumin human (ALBUMINAR) 25 % bottle 25 g [id number] 06/13/2020 04:00:00 AM EDT 25 g Intravenous completed 25 g, Intravenous, at 50 mL/hr, Every 8 hours, First dose on Thu06/13/20 at 0400, For 3 doses [facility] Medication administered onsite sennosides, LONG-TERM 8.6 MG Oral Tablet senna tablet 2 tablet sen na tablet 2 tablet 06/12/2020 10:00:00 PM EDT 2 {tbl} Oral active 2 tablet, Oral, Nightly, First dose on Thu06/12/20 at 2200, For 30 days
Hold if > 1 bowel movement in 24 h
[facility] Medication administered onsite Docusate Sodium 100 MG Oral Capsule docusate sodium (C OLACE) capsule 100 mg docusate sodium (COLACE) capsule 100 mg 06/12/2020 09:00:00 PM EDT 100 mg Oral active 100 mg, Oral, 2 Times Daily, First dose on Thu06/12/20 at 2100, For 30 days
Hold if > 1 bowel movement in 24 h
[facility] Medication administered onsite Metoprolol Tartrate 50 MG Oral Tablet metoprolol (LOPR ESSOR) tablet 50 mg metoprolol (LOPRESSOR) tablet 50 mg 06/12/2020 09:00:00 PM EDT 50 mg Oral aborted 50 mg, Oral, 2 Times Daily, First dose on Thu06/12/20 at 2100, For 30 days
Check vital signs before administering
[facility] Medication administered onsite albumin human (ALBUMINAR) 25 % bottle 25 g [id number] 06/12/2020 08:00:00 PM EDT 25 g Intravenous completed 25 g, Intravenous, at 50 mL/hr, Once, On Thu06/12/20 at 2000, For 1 dose [facility] Medication administered onsite 50 ML Magnesium Sulfate 40 MG/ML Injecti on magnesium sulfate infusion 2 g/50 mL (premix) magnesium sulfate infusion 2 g/50 mL (premix) 06/13/19 06:00:00 PM EDT 2 g Intravenous completed 2 g, Intravenous, Administer over 60 Minutes, Every 1 hour, First dose (after last reorder) on Thu06/12/20 at 1800, For 2 doses [facility] Medication administered onsite Lactulose 667 MG/ML Oral Solution lactulose (CHRONULAC ) solution 30 mL lactulose (CHRONULAC) solution 30 mL 06/12/2020 05:00:00 PM EDT 30 mL Oral active 30 mL, Oral, Three Times Da ashley Standard, First dose on Thu06/12/20 at 1700, For 30 days
Titrate to 2-3 loose bowel movements daily
[facility] Medication administered onsite thiamine (B-1) 500 mg in sodium chloride 0.9 % 50 mL IVPB 06/12/2020 02:00:00 PM EDT 500 mg Intravenous completed 50 0 mg, Intravenous, Administer over 30 Minutes, Three Times Daily, First dose on Thu06/12/20 at 1400, For 3 days [facility] Medication administered onsite potassium chloride (K-DUR) dissolvable tablet 40 mEq 54250-6 99-01 06/12/2020 12:45:00 PM EDT 40 meq Oral completed 40 mEq, Oral, Every 4 hours, First dose on Thu06/12/20 at 1245, For 3 doses
May be dissolved in water for patients with a G-Tube or unable to swallow. If concern for clogging G-Tube, may contact Pharmacy to switch formulation to a powder packet.
[facility] Medication administered onsite albumin human (ALBUMINAR) 25 % bottle 50 g [id number] 06/12/2020 12:00:00 PM EDT 50 g Intravenous completed 50 g, Intravenous, at 100 mL/hr, Once, On Thu06/12/20 at 1200, For 1 dose [facility] Medication administered onsite Folic Acid 1 MG Oral Tablet folic acid (FOLVITE) table t 1 mg folic acid (FOLVITE) tablet 1 mg 06/12/2020 12:00:00 PM EDT 1 mg Oral active 1 mg, Oral, Daily Standard, First dose on Thu06/12/20 at 1200, For 30 days [facility] Medication administered onsite Ceftriaxone 1000 MG Injection cefTRIAXone (ROCEPHIN) i nfusion 1 g (premix) cefTRIAXone (ROCEPHIN) infusion 1 g (premix) 06/12/2020 11:45:00 AM EDT 1 g Intravenous completed 1 g, Intraven ous, at 100 mL/hr, Every 24 hours, First dose on Thu06/12/20 at 1145, For 1 day
Discouraged Uses: Empiric treatment of post-surgical meningitis (ceftazidime preferred)
[facility] Medication administered onsite hypromellose 25 MG/ML Ophthalmic Solutio n hydroxypropyl methylcellulose (GONIOSOL) 2.5 % ophthalmic solution 1 drop hydroxypropyl methylcellulose (GONIOSOL) 2.5 % ophthalmic solution 1 drop 06/12/2020 09:53:35 AM EDT 1 [drp] Both Eyes active 1 drop, Saw th Eyes, Three Times Daily-PRN, Dry Eyes, Starting on Thu06/12/20 at 0953, For 240 hours [facility] Medication administered onsite melatonin sublingual tablet 10 mg [id number] 06/12/2020 09:47:37 AM EDT 10 mg Oral active 10 mg, Ora l, Nightly PRN, Insomnia, Starting on Thu06/12/20 at 0947, For 30 days [facility] Medication administered onsite Calcium Carbonate 500 MG Chewable Tablet calcium carbonate (TUMS) chewable tablet 500 mg calcium carbonate (TUMS) chewable tablet 500 mg 2020 09:47:37 AM EDT 500 mg Oral aborted 500 mg, Oral, 2 Times Daily PRN, Indigestion, Heartburn, Starting on Thu06/12/20 at 0947, For 30 days [facility] Medication administered onsite Acetaminophen 325 MG Oral [...] mg from all sources in 24 hours.
[facility] Medication administered onsite sodium chloride 0.9 % bolus 500 mL [id number] 06/12/2020 07:30:00 AM EDT 500 mL Intravenous completed 500 mL, Intravenous, Once, On Thu06/12/20 at 0730, For 1 dose [facility] Medication administered onsite fentaNYL (SUBLIMAZE) (PF) injection 25 mcg [id number] 06/12/2020 07:30:00 AM EDT 25 ug Intravenous completed 25 mcg, Intravenous, Once, On Thu06/12/20 at 0730, For 1 dose [facility] Medication administered onsite Potassium Chloride 0.1 MEQ/ML Injectable Solution potassium chloride 10 mEq in 100 mL IVPB (premix) potassium chloride 10 mEq in 100 mL IVPB (premix) 06/12/2020 03:30:00 AM EDT 10 meq Intravenous completed 10 mEq, Intravenous, Once, On Thu06/12/20 at 0330, For 1 dose [facility] Medication administered onsite Spironolactone 25 MG Oral Tablet spironolactone (ALDAC TONE) 25 MG tablet spironolactone (ALDACTONE) 25 MG tablet 06/12/2020 12:00:00 AM EDT active TAKE ONE TABLET BY MOUTH EVERY D AY [facility] torsemide 20 MG Oral Tablet torsemide (DEMADEX) 20 MG tablet torsemide (DEMADEX) 20 MG tablet 06/12/2020 12:00:00 AM EDT abor jaden TAKE ONE TABLET BY MOUTH EVERY DAY [facility] 50 mg 05/03/2020 12:00:00 AM EST tablet extended release 24 hr 30 TAKE ONE TABLET BY MOUTH EVERY DAY TAKE ONE TABLET BY MOUTH EVERY DAY SOLD: 05/03/2020 [employer] pantoprazole 40 MG Delayed Release Oral Tablet [...] (25 mg tota l) by mouth daily [facility] torsemide 20 MG Oral Tablet torsemide (DEMADEX) 20 MG tablet torsemide (DEMADEX) 20 MG tablet 03/15/2020 12:00:00 AM EST 20 mg Oral acti ve Take 1 tablet (20 mg total) by mouth daily [facility] 24 HR metoprolol succinate 50 MG Extende d Release Oral Tablet metoprolol succinate (TOPROL-XL) 50 MG 24 hr tablet metoprolol succinate (TOPROL-XL) 50 MG 24 hr tablet 02/21/2020 12:00:00 AM EST 50 mg Oral abort ed Take 50 mg by mouth daily [facility] Benazepril hydrochloride 20 MG / Hydroch lorothiazide 25 MG Oral Tablet benazepril-hydrochlorthiazide (LOTENSIN HCT) 20-25 MG per tablet benazepril- hydrochlorthiazide (LOTENSIN HCT) 20-25 MG per tablet 02/21/2020 12:00:00 AM EST 1 {tbl} Oral aborted Take 1 tablet b y mouth daily [facility] 20-25 mg 02/21/2020 12:00:00 AM EST tablet [...] MOUTH WEEKLY SOLD: 02/01/2020 [facility] Ergocalciferol 86255 UNT Oral Capsule vi tamin D, Ergocalciferol, 1.25 MG (17519 UT) CAPS vitamin D, Ergocalciferol, 1.25 MG (45011 UT) CAPS 03/2019 12:00:00 AM EST aborted TAKE ONE CAPSULE BY MOUTH WEEKLY [facility] Ergocalciferol 39100 UNT Oral Capsule [Drisdol] Drisdo l 1.25 MG (98830 UT) Drisdol 1.25 MG (24698 UT) 01/24/2020 12:00:00 AM EST 1.0 {capsule} active Drisdol 1.25 MG (17097 UT) eCW ([facility]) Ergocalciferol 32931 UNT Oral Capsule [Drisdol] Drisdo l 1.25 MG (23511 UT) Drisdol 1.25 MG (76827 UT) 01/24/2020 12:00:00 AM EST 1.0 {capsule} active Drisdol 1.25 MG (20774 UT) eCW ([facility]) Ergocalciferol 94038 UNT Oral Capsule [Drisdol] Drisdo l 1.25 MG (63674 UT) Drisdol 1.25 MG (36569 UT) 01/24/2020 12:00:00 AM EST 1.0 {capsule} active Drisdol 1.25 MG (73447 UT) eCW ([facility]) Ergocalciferol 14818 UNT Oral Capsule [Drisdol] Drisdo l 1.25 MG (75990 UT) Drisdol 1.25 MG (64247 UT) 01/24/2020 12:00:00 AM EST 1.0 {capsule} active Drisdol 1.25 MG (05668 UT) eCW1 ([facility]) Ergocalciferol 30806 UNT Oral Capsule [Drisdol] Drisdo l 1.25 MG (37284 UT) Drisdol 1.25 MG (47926 UT) 01/24/2020 12:00:00 AM EST 1.0 {capsule} active Drisdol 1.25 MG (95023 UT) eCW1 ([facility]) Ergocalciferol 77997 UNT Oral Capsule [Drisdol] Drisdo l 1.25 MG (14184 UT) Drisdol 1.25 MG (81483 UT) 01/24/2020 12:00:00 AM EST 1.0 {capsule} active Drisdol 1.25 MG (06713 UT) eCW1 ([facility]) Ergocalciferol 61518 UNT Oral Capsule [Drisdol] Drisdo l 1.25 MG (41421 UT) Drisdol 1.25 MG (09875 UT) 01/24/2020 12:00:00 AM EST 1.0 {capsule} active Drisdol 1.25 MG (54135 UT) eCW1 ([facility]) 50 mg 01/13/2020 12:00:00 AM EST tablet extended release 24 hr 30 TAKE ONE TABLET BY MOUTH EVERY DAY TAKE ONE TABLET BY MOUTH EVERY DAY SOLD: 02/22/2020 [facility] 24 HR metoprolol succinate 50 MG Extende d Release Oral Tablet Metoprolol Succinate ER 50 MG Metoprolol Succinate ER 50 MG 01/13/2020 12:00:00 AM EST 1.0 {tablet} active Metoprolol Succinat e ER 50 MG eCW1 ([facility]) 24 HR metoprolol succinate 50 MG Extende d Release Oral Tablet Metoprolol Succinate ER 50 MG Metoprolol Succinate ER 50 MG 01/13/2020 12:00:00 AM EST 1.0 {tablet} active Metoprolol Succinat e ER 50 MG eCW1 ([facility]) 24 HR metoprolol succinate 50 MG Extende d Release Oral Tablet Metoprolol Succinate ER 50 MG Metoprolol Succinate ER 50 MG 01/13/2020 12:00:00 AM EST 1.0 {tablet} active Metoprolol Succinat e ER 50 MG eCW1 ([facility]) 50 mg 01/13/2020 12:00:00 AM EST tablet extended release 24 hr 30 TAKE ONE TABLET BY MOUTH EVERY DAY TAKE ONE TABLET BY MOUTH EVERY DAY SOLD: 03/28/2020 [facility] 24 HR metoprolol succinate 50 MG Extende d Release Oral Tablet Metoprolol Succinate ER 50 MG Metoprolol Succinate ER 50 MG 01/13/2020 12:00:00 AM EST 1.0 {tablet} active Metoprolol Succinat e ER 50 MG eCW1 ([facility]) 24 HR metoprolol succinate 50 MG Extende d Release Oral Tablet Metoprolol Succinate ER 50 MG Metoprolol Succinate ER 50 MG 01/13/2020 12:00:00 AM EST 1.0 {tablet} active Metoprolol Succinat e ER 50 MG eCW1 ([facility]) 24 HR metoprolol succinate 50 MG Extende d Release Oral Tablet Metoprolol Succinate ER 50 MG Metoprolol Succinate ER 50 MG 01/13/2020 12:00:00 AM EST 1.0 {tablet} active Metoprolol Succinat e ER 50 MG eCW1 ([facility]) pantoprazole 40 MG Delayed Release Oral Tablet pantoprazole (PROTONIX) 40 MG tablet pantoprazole (PROTONIX) 40 MG tablet 01/13/2020 12:00:00 AM EST 40 mg Oral active Take 40 mg by mouth 2 (two) times a day [facility] 50 mg 01/13/2020 12:00:00 AM EST tablet [...] Metoprolol Succinat e ER 50 MG eCW1 ([facility]) 25 mg 11/30/2019 12:00:00 AM EDT tablet [...] aborted Take 1 tablet by mouth daily [facility] torsemide 20 MG Oral Tablet Torsemide 20 MG Oral Table t (DEMADEX) Torsemide 20 MG Oral Tablet (DEMADEX) 20 mg Oral aborted Take 20 mg by mouth daily [facility] Benazepril hydrochloride 20 MG / Hydroch lorothiazide 25 MG Oral Tablet benazepril-hydrochlorthiazide (LOTENSIN HCT) 20-25 MG per tablet benazepril- hydrochlorthiazide (LOTENSIN HCT) 20-25 MG per tablet 1 {tbl } Oral aborted Take 1 tablet by mouth daily [facility] Metoprolol Tartrate 50 MG Oral Tablet Me toprolol Tartrate 50 MG Oral Tablet (LOPRESSOR) Metoprolol Tartrate 50 MG Oral Tablet (LOPRESSOR) 50 mg Oral aborted Take 50 mg by mouth Two Time s Daily [facility] 24 HR metoprolol succinate 50 MG Extende d Release Oral Tablet Metoprolol Succinate ER 50 MG Oral Tablet Extended Release 24 Hour (TOPROL-XL) Metoprolol Succinate ER 50 MG Oral Tablet Extended Release 24 Hour (TOPROL-XL) 50 mg Oral aborted Take 50 mg by mouth daily [facility] Insurance Providers Payer name Policy type / Coverage type Policy ID Covered democrat ID Covered democrat's relationship to guzman Policy Guzman Plan Information [facility] [id number] SP [id number] MEDICAID [id number] SP [id number] MEDICAID M [id number] Self [id number] [facility] COMMUNITY PLAN [facility] [id number] SP [id number] SELF PAY CONTRACTS UNAVAILABLE Manuela UNAVAILABLE [facility] MEDICAID [id number] xxxxxxxxx [id number] [facility] MEDICAID [id number] Manuela [id number] [facility] I [id number] Self [id number] SELF PAY ONLY UNK SP UNK ANSI-Not a Secondary Insurance [id number] ANSI-Not a Secondary Insurance [id number] ANSI-Not a Secondary Insurance [id number] ANSI-Not a Secondary Insurance [id number] [facility] [id number] SP [id number] [facility] Health Maintenance Organization (HMO) [id number] Self [id number] [facility] [id number] SP [id number] [facility] [id number] SP [id number] [facility] O [id number] S [id number] [facility] [id number] SP [id number] [facility] [id number] SP [id number] [facility] MEDICAID [id number] S [id number] [place] [id number] SP [id number] SELF PAY ONLY - [id number] SP MEDICAID [id number] SP [id number] SELF PAY ONLY NONE SP NONE SELF PAY ONLY [id number] SP [id number] Problems, Conditions, and Diagnoses Code Display Name Description Problem Type Effective Dates Data Source(s) fol fol Diagnosis 12/14/2020 12:00:00 AM [facility] I10 Essential (primary) hypertension Essential (primary) h ypertension Diagnosis 10/02/2020 09:18:51 AM EDT [facility] K70.31 Alcoholic cirrhosis of liver with ascite s Alcoholic cirrhosis of liver with ascite Diagnosis 10/02/2020 09:18:51 AM EDT [facility] D69.6 Thrombocytopenia, unspecified Thrombocytopenia, unspec ified Diagnosis 09/03/2020 02:29:12 PM EDT [facility] I49.3 Ventricular premature depolarization Ventricular premature depolarization Diagnosis 09/03/2020 02:29:12 PM EDT [facility] R60.1 Generalized edema Generalized edema Diagnosis 07/14/2020 11:02:00 PM [facility] R14.0 Abdominal distension (gaseous) Abdominal distension (g aseous) Diagnosis 07/14/2020 11:02:00 PM [facility] Ascites Ascites Diagnosis 07/14/2020 11:02:00 PM [facility] 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 Diagnosis 07/14/2020 06:15:00 PM [facility] Z20.822 CONTACT WITH AND (SUSPECTED) EXPOSURE TO COVID-19 CONTACT WITH AND (SUSPECTED) EXPOSURE TO COVID-19 Diagnosis 07/14/2020 06:15:00 PM [facility] F17.210 Nicotine dependence, cigarettes, uncompl icated NICOTINE DEPENDENCE, CIGARETTES, UNCOMPLICATED Diagnosis 07/14/2020 06:15:00 PM [facility] I10 Essential (primary) hypertension ESSENTIAL (PRIMARY) H YPERTENSION Diagnosis 07/14/2020 06:15:00 PM [facility] R60.1 Generalized edema GENERALIZED EDEMA Diagnosis 07/14/2020 06:15:00 PM [facility] K74.60 Unspecified cirrhosis of liver UNSPECIFIED CIRRHOSIS O F LIVER Diagnosis 07/14/2020 06:15:00 PM [facility] R22.43 Localized swelling, mass and lump, lower limb, bilateral LOCALIZED SWELLING, MASS AND LUMP, LOWER LIMB, BILATERAL Diagnosis 021 06:15:00 PM [facility] hosp D/C hosp D/C Diagnosis 07/13/2020 12:00:00 AM ED [facility] R18.8 Other ascites Other ascites Diagnosis 07/04/2020 12:29:48 PM [facility] K70.31 Alcoholic cirrhosis of liver with ascite s Alcoholic cirrhosis of liver with ascites Diagnosis 06/12/2020 06:27:53 PM [facility] K72.90 Hepatic failure, unspecified without com a Hepatic failure, unspecified without coma Diagnosis 06/12/2020 06:27:51 PM [facility] S22.009S Unspecified fracture of unspecified thor acic vertebra, sequela Unspecified fracture of unspecified thoracic vertebra, sequela Diagnosis 06/12/2020 06:21:44 PM [facility] S22.001A Stable burst fracture of uns pecified thoracic vertebra, initial encounter for closed fracture Stable burst fracture of unspecified tho racic vertebra, initial encounter for closed fracture Diagnosis 2020 06:21:42 PM [facility] Z20.822 Contact with and (suspected) exposure to covid-19 Contact with and (suspected) exposure to covid-19 Diagnosis 06/12/2020 01:20:00 AM [facility] Y92.[address] in unspeci fied non-institutional (private) residence as the place of occurrence of the external cause Unspecified place in unspecified non-institutional (private) residence as the place of occurrence of the external cause Diagnosis 06/12/2020 01:20:00 AM [facility] Y93.89 Activity, other specified Activity, other specified Di agnosis 06/12/2020 01:20:00 AM [facility] W08.XXXA Fall from other furniture, initial encou nter Fall from other furniture, initial encounter Diagnosis 06/12/2020 01:20:00 AM [facility] F17.210 Nicotine dependence, cigarettes, uncompl icated Nicotine dependence, cigarettes, uncomplicated Diagnosis 06/12/2020 01:20:00 AM [facility] K42.9 Umbilical hernia without obstruction or gangrene Umbilical hernia without obstruction or gangrene Diagnosis [facility]/12[facility] Essential (primary) hypertension Essential (primary) h ypertension Diagnosis 06/12/2020 01:20:00 AM [facility] S22.42XA Multiple fractures of ribs, left side, initial encounter for closed fracture Multiple fractures of ribs, left side, i nitial encounter for closed fracture Diagnosis 06/12/2020 01:20:00 AM [facility] S22.089A Unspecified fracture of T11- T12 vertebra, initial encounter for closed fracture Unspecified fracture of t11-T12 vertebra , initial encounter for closed fracture Diagnosis 06/12/2020 01:20:00 AM [facility] T11 fracture, cirrhosis of liver and asc ites T11 fracture, cirrhosis of liver and ascites Diagnosis 06/12/2020 01:20:00 AM [facility] Y93.89 Activity, other specified ACTIVITY, OTHER SPECIFIED Di agnosis 06/11/2020 05:37:00 PM [facility] Y92.[address] in unspeci fied non-institutional (private) residence as the place of occurrence of the external cause UNSP PLACE IN [facility] NON-INSTITUT (PRIVATE) RESIDENC Diagnosis 06/11/2020 05:37:00 PM [facility] W07.XXXA Fall from chair, initial encounter FALL FROM JOSE IR, INITIAL ENCOUNTER Diagnosis 06/11/2020 05:37:00 PM [facility] K70.31 Alcoholic cirrhosis of liver with ascite s ALCOHOLIC CIRRHOSIS OF LIVER WITH ASCITES Diagnosis 06/11/2020 05:37:00 PM [facility] S22.32XA Fracture of one rib, left side, initial encounter for closed fracture FRACTURE OF ONE RIB, LEFT SIDE, INIT FOR CLOS FX Diagnosis 06/11 05:37:00 PM [facility] S22.080A Wedge compression fracture o f T11-T12 vertebra, initial encounter for closed fracture WEDGE COMPRESSION FRACTURE OF T11-T12 VERTEBRA, IN Diagnosis 06/11/2020 05:37:00 PM [facility] D69.3 Immune thrombocytopenic purpura IMMUNE THROMBOCYTOPENI C PURPURA Diagnosis 06/11/2020 05:37:00 PM [facility] D63.8 Anemia in other chronic diseases classif ied elsewhere ANEMIA IN OTHER CHRONIC DISEASES CLASSIFIED ELSEWH Diagnosis 06/11/2020 05:37:00 PM [facility] G89.11 Acute pain due to trauma ACUTE PAIN DUE TO TRAUMA Diag nosis 06/11/2020 05:37:00 PM [facility] M54.5 Low back pain LOW BACK PAIN Diagnosis 06/11/2020 05:37:00 PM [facility] S39.92XA Unspecified injury of lower back, initia l encounter UNSPECIFIED INJURY OF LOWER BACK, INITIAL ENCOUNTER Diagnosis 06/11/2020 05:37:00 PM [facility] F10.10 Alcohol abuse, uncomplicated Alcohol abuse, uncomplica jaden Diagnosis 03/15/2020 02:06:23 PM [facility] R94.31 Abnormal electrocardiogram [ECG] [EKG] A bnormal electrocardiogram (ECG) (EKG) Diagnosis 03/15/2020 02:06:23 PM [facility] R06.02 Shortness of breath Shortness of breath Diagnosis 0 03/15/2020 02:06:23 PM [facility] R93.5 Abnormal findings on diagnos tic imaging of other abdominal regions, including retroperitoneum ABN FINDINGS ON DX IMAGING OF ABD REGIONS, INC RET Diagnosis 02/08/2020 08:00:00 AM [facility] K40.31 Unilateral inguinal hernia, with obstruction, without gangrene, recurrent UNILATERAL INGUINAL HERNIA, W OBST, W/O GANGRENE, Diagnosis 02/08/2020 08:00:00 AM [facility] K80.20 Calculus of gallbladder without cholecys titis without obstruction CALCULUS OF GALLBLADDER W/O CHOLECYSTITIS W/O OBST Diagnosis 08:00:00 AM [facility] R93.2 Abnormal findings on diagnostic imaging of liver and biliary tract ABNORMAL FINDINGS ON DX IMAGING OF LIVER AND BILIA Diagnosis 08:00:00 AM [facility] B18.2 Chronic viral hepatitis C CHRONIC VIRAL HEPATITIS C Di agnosis 02/08/2020 08:00:00 AM [facility] N50.89 OTHER SPECIFIED DISORDERS OF THE MALE GE NITAL ORGANS OTHER SPECIFIED DISORDERS OF THE MALE GENITAL ORGANS Diagnosis 02/08/2020 08:00:00 AM [facility] K72.90 [id number] Hepatic encephalopathy Problem 10/24/2020 12 :00:00 AM EDT eCW1 ([facility]) S22.081A [id number] T12 burst fracture Problem 07/31/2020 12:00: 00 AM EDT eCW1 ([facility]) K70.31 [id number] Ascites due to alcoholic cirrhosis Pr oblem 07/31/2020 12:00:00 AM EDT eCW1 ([facility]) F17.209 [id number] Nicotine dependence with nicotine-induced disorder, unspecified nicotine product type Problem 07/25/2020 12:00:00 AM EDT eCW1 ([facility]) K74.60 [id number] Unspecified cirrhosis of liver Problem 07/25/2020 12:00:00 AM EDT eCW1 ([facility]) R18.8 Ascites Other ascites Problem 07/25/2020 12:00:00 AM EDT eCW1 ([facility]) R14.0 Abdominal distension Abdominal distension [id number] 07/15/2020 12:00:00 AM EDT [facility] R18.8 Other ascites Other ascites [id number] 07/04/2020 12:00:00 AM EDT [facility] R17 [id number] Jaundice Problem 06/15/2020 12:00:00 AM ED T eCW1 ([facility]) S22.001A Traumatic burst fracture of thoracic vertebra, closed, initial encounter Traumatic burst fracture of thoracic sage tebra, closed, initial encounter [id number] 06/12/2020 12:00:00 AM EDT [facility] T14.90XA Trauma Trauma [id number] 06/12/2020 12:00:00 AM ED T [facility] E83.42 Hypomagnesemia Hypomagnesemia [id number] 06/12/2020 12:00: 00 AM EDT [facility] E87.6 Hypokalemia Hypokalemia [id number] 06/12/2020 12:00:00 AM EDT [facility] B19.20 Hepatitis C Hepatitis C [id number] 06/12/2020 12:00:00 AM EDT [facility] S22.009S Fracture of thoracic spine, unspecified fracture morphology, sequela Fracture of thoracic spine, unspecified fracture morphology, sequela [id number] 06/12/2020 12:00:00 AM EDT [facility] K72.90 Encephalopathy, portal systemic Encephalopathy, portal systemic [id number] 06/12/2020 12:00:00 AM EDT [facility] K74.60 Cirrhosis of liver with ascites Cirrhosis of liver wit h ascites [id number] 06/12/2020 12:00:00 AM EDT [facility] R27.8 Asterixis Asterixis [id number] 06/12/2020 12:00:00 AM ED T [facility] N17.9 BARTOLO (acute kidney injury) BARTOLO (acute kidney injury) [id number] 06/12/2020 12:00:00 AM EDT [facility] K70.31 Alcoholic cirrhosis of liver with ascite s Alcoholic cirrhosis of liver with ascites [id number] 03/15/2020 12:00:00 AM EST [facility] I49.3 PVC's (premature ventricular contraction s) PVC's (premature ventricular contractions) [id number] 03/10/2020 12:00:00 AM EST [facility] R94.31 Abnormal EKG Abnormal EKG [id number] 03/10/2020 12:00:00 A M EST [facility] N45.1 [id number] Epididymitis, right Problem 03/02/2020 12:00 :00 AM EST eCW1 ([facility]) K40.90 [id number] Inguinal hernia of left side wit hout obstruction or gangrene Problem 03/02/2020 12:00:00 AM EST eCW1 ([facility]) E78.5 Dyslipidemia Dyslipidemia Problem 12/11/2019 12:00:00 A M EDT eCW1 ([facility]) Surgeries/Procedures Procedure Description Date Indications Data Source(s) OFFICE OUTPATIENT NEW 45 MINUTES 12/12/2020 12:00:00 A M EDT [facility]ENT ([facility], ) Imm: Shingrix 50mcg/0.5mL IM Zoster 12/06/2020 12:00:0 0 AM EDT eCW1 ([facility]) RADEX SPINE THORACIC 2 VIEWS <td>XR THORACIC SPINE AP AND LATERAL</td><td>Routine</td><td>09/07/2020 9:25 AM EDT</td><td> Traumatic burst fracture of thoracic vertebra, closed, initial encounter</td><td> </td> 09/07/2020 09:25:00 AM EDT Traumatic burst fracture of thoracic vertebra, closed, initial encounter [facility] Traumatic burst fracture of thoracic sage tebra, closed, initial encounter ECG ROUTINE ECG W/LEAST 12 LDS W/I&R <td>POCT AMB EKG</td><td>Routine</td><td>09/03/2020 3:29 PM EDT</td><td> PVC's (premature ventricular contractions)</td><td> </td> 09/03/2020 03:29:00 PM EDT PVC's (premature ventricular contractions) [facility] PVC's (premature ventricular contraction s) PNEUMOCOCCAL POLYSAC VACCINE 23-V 2 />YR SUBQ/IM 08/14 12:00:00 AM EDT eCW1 ([facility]) Imm: Shingrix 50mcg/0.5mL IM Zoster 08/14/2020 12:00:0 0 AM EDT eCW1 ([facility]) ABDOM PARACENTESIS DX/THER W IMAGING GUIDANCE <td>IR I MAGE GUIDED NEEDLE DRAIN PROCEDURE</td><td>Pending Discharge</td><td>07/16/2020 10:45 AM EDT</td><td></td><td></td> 07/16/2020 10:45:00 AM EDT [facility] ALBUMIN FLUID <td>ALBUMIN FLUID</td><td>Ro utine</td><td>07/16/2020 10:15 AM EDT</td><td></td><td> </td> 07/16/2020 10:15:00 AM [facility] BODY FLUID CULTURE AND GRAM STAIN <td>BODY FLUID CULTU RE AND GRAM STAIN</td><td>Routine</td><td>07/16/2020 10:15 AM EDT</td><td></td><td></td> 07/16/2020 10:15:00 AM [facility] CELL COUNT, SEROUS FLUID <td>CELL COUNT, SEROUS FLUID</td><td>Routine</td><td>07/16/2020 10:15 AM EDT</td><td></td><td> </td> 07/16/2020 10:15:00 AM [facility] BLOOD COUNT COMPLETE AUTO&AUTO DIFRNTL WBC COUNT <td>C BC AND DIFFERENTIAL</td><td>Routine</td><td>07/16/2020 3:59 AM EDT</td><td></td><td> </td> 07/16/2020 03:59:00 AM [facility] PHOSPHORUS INORGANIC <td>PHOSPHORUS LEVEL</td><td >Routine</td><td>07/16/2020 3:59 AM EDT</td><td></td><td> </td> 07/16/2020 03:59:00 AM [facility] MAGNESIUM <td>MAGNESIUM LEVEL</td><td> Routine</td><td>07/16/2020 3:59 AM EDT</td><td></td><td> </td> 07/16/2020 03:59:00 AM [facility] COMPREHENSIVE METABOLIC PANEL <td>COMPREHENSIVE METABO LIC PANEL</td><td>Routine</td><td>07/16/2020 3:59 AM EDT</td><td></td><td> </td> 07/16/2020 03:59:00 AM [facility] EKG 12-LEAD - CMAXX REPORT <td>EKG 12-LEAD - CMAXX REPORT</td><td></td><td>07/15/2020 10:25 PM EDT</td><td></td><td></td> 07/15/2020 10:25:40 PM [facility] EKG 12-LEAD - CMAXX REPORT <td>EKG 12-LEAD - CMAXX REPORT</td><td></td><td>07/15/2020 10:25 PM EDT</td><td></td><td></td> 07/15/2020 10:25:40 PM [facility] EKG 12-LEAD <td>EKG 12-LEAD</td><td>Rout ine</td><td>07/15/2020 10:25 PM EDT</td><td></td><td> </td> 07/15/2020 10:25:40 PM [facility] EKG 12-LEAD - CMAXX REPORT <td>EKG 12-LEAD - CMAXX REPORT</td><td></td><td>07/15/2020 10:24 PM EDT</td><td></td><td></td> 07/15/2020 10:24:27 PM [facility] EKG 12-LEAD - CMAXX REPORT <td>EKG 12-LEAD - CMAXX REPORT</td><td></td><td>07/15/2020 10:24 PM EDT</td><td></td><td></td> 07/15/2020 10:24:27 [facility] [facility] EKG 12-LEAD <td>EKG 12-LEAD</td><td>Rout ine</td><td>07/15/2020 10:24 PM EDT</td><td></td><td> </td> 07/15/2020 10:24:27 PM [facility] EKG 12-LEAD - CMAXX REPORT <td>EKG 12-LEAD - CMAXX REPORT</td><td></td><td>07/15/2020 10:23 PM EDT</td><td></td><td></td> 07/15/2020 10:23:56 PM [facility] EKG 12-LEAD - CMAXX REPORT <td>EKG 12-LEAD - CMAXX REPORT</td><td></td><td>07/15/2020 10:23 PM EDT</td><td></td><td></td> 07/15/2020 10:23:56 PM [facility] EKG 12-LEAD <td>EKG 12-LEAD</td><td>Rout ine</td><td>07/15/2020 10:23 PM EDT</td><td></td><td> </td> 07/15/2020 10:23:56 PM [facility] AMMONIA <td>AMMONIA LEVEL</td><td>Ro utine</td><td>07/15/2020 6:47 AM EDT</td><td></td><td> </td> 07/15/2020 06:47:00 AM [facility] URNLS DIP STICK/TABLET REAGENT AUTO MICROSCOPY <td>URI NALYSIS WITH MICROSCOPIC</td><td>STAT</td><td>07/15/2020 3:57 AM EDT</td><td></td><td> </td> 07/15/2020 03:57:00 AM [facility] RESPIRATORY PATHOGEN PANEL <td>RESPIRATORY PATHOGEN PANEL</td><td>Routine</td><td>07/15/2020 3:50 AM EDT</td><td></td><td> </td> 07/15/2020 03:50:00 AM [facility] COVID-19 PCR <td>COVID-19 PCR</td><td>Rou jerardo</td><td>07/15/2020 3:50 AM EDT</td><td></td><td> </td> 07/15/2020 03:50:00 AM [facility] THROMBOPLASTIN TIME PARTIAL PLASMA/WHOLE BLOOD <td>PAR TIAL THROMBOPLASTIN TIME (PTT)</td><td>Routine</td><td>07/15/2020 3:50 AM EDT</td><td></td><td> </td> 07/15/2020 03:50:00 AM [facility] PROTHROMBIN TIME <td>PROTIME INR</td><td>STAT </td><td>07/15/2020 3:50 AM EDT</td><td></td><td> </td> 07/15/2020 03:50:00 AM [facility] BLOOD COUNT COMPLETE AUTO&AUTO DIFRNTL WBC COUNT <td>C BC AND DIFFERENTIAL</td><td>Routine</td><td>07/15/2020 3:50 AM EDT</td><td></td><td> </td> 07/15/2020 03:50:00 AM [facility] PHOSPHORUS INORGANIC <td>PHOSPHORUS LEVEL</td><td >Routine</td><td>07/15/2020 3:50 AM EDT</td><td></td><td> </td> 07/15/2020 03:50:00 AM [facility] MAGNESIUM <td>MAGNESIUM LEVEL</td><td> Routine</td><td>07/15/2020 3:50 AM EDT</td><td></td><td> </td> 07/15/2020 03:50:00 AM [facility] HEPATIC FUNCTION PANEL <td>HEPATIC FUNCTION PANEL A</td><td>STAT</td><td>07/15/2020 3:50 AM EDT</td><td></td><td> </td> 07/15/2020 03:50:00 AM [facility] BASIC METABOLIC PANEL CALCIUM TOTAL <td>BASIC METABOLI C PANEL</td><td>STAT</td><td>07/15/2020 3:50 AM EDT</td><td></td><td> </td> 07/15/2020 03:50:00 AM T [facility] RADEX SPINE THORACIC 2 VIEWS <td>XR THORACIC SPINE AP AND LATERAL</td><td>Routine</td><td>07/13/2020 9:52 AM EDT</td><td> Fracture of thoracic spine, unspecified fracture morphology, sequela</td><td> </td> 07/13/2020 09:52:22 AM EDT Fracture of thoracic spine, unspecified fracture morph ology, sequela [facility] Fracture of thoracic spine, unspecified fracture morphology, sequela ABDOM PARACENTESIS DX/THER W IMAGING GUIDANCE <td>IR I MAGE GUIDED NEEDLE DRAIN PROCEDURE</td><td>Routine</td><td>07/04/2020 1:49 PM EDT</td><td> Other ascites</td><td> </td> 07/04/2020 01:49:21 PM EDT Other ascites [facility] Other ascites BLOOD COUNT COMPLETE AUTO&AUTO DIFRNTL WBC COUNT <td>C BC AND DIFFERENTIAL</td><td>Routine</td><td>06/19/2020 12:55 AM EDT</td><td></td><td> </td> 06/19/2020 12:55:00 AM [facility] BASIC METABOLIC PANEL CALCIUM TOTAL <td>BASIC METABOLI C PANEL</td><td>Routine</td><td>06/19/2020 12:55 AM EDT</td><td></td><td> </td> 06/19/2020 12:55:00 AM [facility] PROTHROMBIN TIME <td>PROTIME INR</td><td>Rout ine</td><td>06/18/2020 6:41 PM EDT</td><td></td><td> </td> 06/18/2020 06:41:00 PM [facility] PARACENTESIS <td>PARACENTESIS</td><td>Rou jerardo</td><td>06/18/2020 5:30 PM EDT</td><td></td><td></td> [facility]O&AUTO DIFRNTL WBC COUNT <td>C BC AND DIFFERENTIAL</td><td>Routine</td><td>06/18/2020 8:00 AM EDT</td><td></td><td> </td> 06/18/2020 08:00:00 AM [facility] COMPREHENSIVE METABOLIC PANEL <td>COMPREHENSIVE METABO LIC PANEL</td><td>Routine</td><td>06/18/2020 8:00 AM EDT</td><td></td><td> </td> 06/18/2020 08:00:00 AM [facility] COVID-19 PCR <td>COVID-19 PCR</td><td>Rou jerardo</td><td>06/17/2020 12:25 PM EDT</td><td></td><td> </td> 06/17/2020 12:25:00 PM [facility] BLOOD COUNT COMPLETE AUTO&AUTO DIFRNTL WBC COUNT <td>C BC AND DIFFERENTIAL</td><td>Routine</td><td>06/17/2020 1:10 AM EDT</td><td></td><td> </td> 06/17/2020 01:10:00 AM [facility] PHOSPHORUS INORGANIC <td>PHOSPHORUS LEVEL</td><td >Routine</td><td>06/17/2020 1:10 AM EDT</td><td></td><td> </td> 06/17/2020 01:10:00 AM [facility] MAGNESIUM <td>MAGNESIUM LEVEL</td><td> Routine</td><td>06/17/2020 1:10 AM EDT</td><td></td><td> </td> 06/17/2020 01:10:00 AM [facility] BASIC METABOLIC PANEL CALCIUM TOTAL <td>BASIC METABOLI C PANEL</td><td>Routine</td><td>06/17/2020 1:10 AM EDT</td><td></td><td> </td> 06/17/2020 01:10:00 AM [facility] BLOOD COUNT COMPLETE AUTO&AUTO DIFRNTL WBC COUNT <td>C BC AND DIFFERENTIAL</td><td>Routine</td><td>06/16/2020 3:51 AM EDT</td><td></td><td> </td> 06/16/2020 03:51:00 AM [facility] PHOSPHORUS INORGANIC <td>PHOSPHORUS LEVEL</td><td >Routine</td><td>06/16/2020 3:51 AM EDT</td><td></td><td> </td> 06/16/2020 03:51:00 AM [facility] MAGNESIUM <td>MAGNESIUM LEVEL</td><td> Routine</td><td>06/16/2020 3:51 AM EDT</td><td></td><td> </td> 06/16/2020 03:51:00 AM [facility] BASIC METABOLIC PANEL CALCIUM TOTAL <td>BASIC METABOLI C PANEL</td><td>Routine</td><td>06/16/2020 3:51 AM EDT</td><td></td><td> </td> 06/16/2020 03:51:00 AM [facility] BLOOD COUNT COMPLETE AUTO&AUTO DIFRNTL WBC COUNT <td>C BC AND DIFFERENTIAL</td><td>Routine</td><td>06/15/2020 1:32 AM EDT</td><td></td><td> </td> 06/15/2020 01:32:00 AM [facility] PHOSPHORUS INORGANIC <td>PHOSPHORUS LEVEL</td><td >Routine</td><td>06/15/2020 1:32 AM EDT</td><td></td><td> </td> 06/15/2020 01:32:00 AM [facility] MAGNESIUM <td>MAGNESIUM LEVEL</td><td> Routine</td><td>06/15/2020 1:32 AM EDT</td><td></td><td> </td> 06/15/2020 01:32:00 AM [facility] HEPATIC FUNCTION PANEL <td>HEPATIC FUNCTION PANEL A</td><td>Routine</td><td>06/15/2020 1:32 AM EDT</td><td></td><td> </td> 06/15/2020 01:32:00 AM [facility] BASIC METABOLIC PANEL CALCIUM TOTAL <td>BASIC METABOLI C PANEL</td><td>Routine</td><td>06/15/2020 1:32 AM EDT</td><td></td><td> </td> 06/15/2020 01:32:00 AM [facility] COVID-19 PCR <td>COVID-19 PCR</td><td>Rou jerardo</td><td>06/14/2020 4:04 PM EDT</td><td></td><td> </td> 06/14/2020 04:04:00 PM [facility] RADEX SPINE THORACIC 2 VIEWS <td>XR THORACIC SPINE AP AND LATERAL</td><td>Routine</td><td>06/14/2020 12:50 PM EDT</td><td></td><td> </td> 06/14/2020 12:50:18 PM [facility] AMMONIA <td>AMMONIA LEVEL</td><td>Ro utine</td><td>06/14/2020 11:16 AM EDT</td><td></td><td> </td> 06/14/2020 11:16:00 AM [facility] SODIUM URINE <td>SODIUM, URINE, RANDOM</t d><td>Routine</td><td>06/14/2020 8:38 AM EDT</td><td></td><td> </td> 06/14/2020 08:38:00 AM [facility] OSMOLALITY URINE <td>OSMOLALITY, URINE</td><t d>Routine</td><td>06/14/2020 8:38 AM EDT</td><td></td><td> </td> 06/14/2020 08:38:00 AM [facility] BLOOD COUNT COMPLETE AUTO&AUTO DIFRNTL WBC COUNT <td>C BC AND DIFFERENTIAL</td><td>Routine</td><td>06/14/2020 3:15 AM EDT</td><td></td><td> </td> 06/14/2020 03:15:00 AM [facility] PHOSPHORUS INORGANIC <td>PHOSPHORUS LEVEL</td><td >Routine</td><td>06/14/2020 3:15 AM EDT</td><td></td><td> </td> 06/14/2020 03:15:00 AM [facility] MAGNESIUM <td>MAGNESIUM LEVEL</td><td> Routine</td><td>06/14/2020 3:15 AM EDT</td><td></td><td> </td> 06/14/2020 03:15:00 AM [facility] BASIC METABOLIC PANEL CALCIUM TOTAL <td>BASIC METABOLI C PANEL</td><td>Routine</td><td>06/14/2020 3:15 AM EDT</td><td></td><td> </td> 06/14/2020 03:15:00 AM [facility] BLOOD COUNT COMPLETE AUTO&AUTO DIFRNTL WBC COUNT <td>C BC AND DIFFERENTIAL</td><td>Routine</td><td>06/13/2020 3:49 AM EDT</td><td></td><td> </td> 06/13/2020 03:49:00 AM [facility] PHOSPHORUS INORGANIC <td>PHOSPHORUS LEVEL</td><td >Routine</td><td>06/13/2020 3:49 AM EDT</td><td></td><td> </td> 06/13/2020 03:49:00 AM [facility] MAGNESIUM <td>MAGNESIUM LEVEL</td><td> Routine</td><td>06/13/2020 3:49 AM EDT</td><td></td><td> </td> 06/13/2020 03:49:00 AM [facility] BASIC METABOLIC PANEL CALCIUM TOTAL <td>BASIC METABOLI C PANEL</td><td>Routine</td><td>06/13/2020 3:49 AM EDT</td><td></td><td> </td> 06/13/2020 03:49:00 AM [facility] BASIC METABOLIC PANEL CALCIUM TOTAL <td>BASIC METABOLI C PANEL</td><td>Routine</td><td>06/12/2020 8:08 PM EDT</td><td></td><td> </td> 06/12/2020 08:08:[address] [facility] [address] HEAD/BRAIN W/O CONTRAST MATERIAL <td>CT HEAD WITHOU T CONTRAST 36731</td><td>Routine</td><td>06/12/2020 6:29 PM EDT</td><td></td><td> </td> 06/12/2020 06:29:41 PM [facility] TRIGLYCERIDE FLUID <td>TRIGLYCERIDE FLUID</td>< td>Routine</td><td>06/12/2020 1:54 PM EDT</td><td></td><td> </td> 06/12/2020 01:54:00 PM [facility] ALBUMIN FLUID <td>ALBUMIN FLUID</td><td>Ro utine</td><td>06/12/2020 1:54 PM EDT</td><td></td><td> </td> 06/12/2020 01:54:00 PM [facility] CUL BACT XCPT URINE BLOOD/STOOL AEROBIC ISOL <td>BODY FLUID CULTURE AND GRAM STAIN</td><td>Routine</td><td>06/12/2020 1:54 PM EDT</td><td></td><td> </td> 06/12/2020 01:54:00 PM [facility] CELL COUNT, SEROUS FLUID <td>CELL COUNT, SEROUS FLUID</td><td>Routine</td><td>06/12/2020 1:54 PM EDT</td><td></td><td> </td> 06/12/2020 01:54:00 PM [facility] PROTEIN TOTAL XCPT REFRACTOMETRY OTH SRC <td>TOTAL PRO TEIN, BODY FLUID</td><td>Routine</td><td>06/12/2020 1:54 PM EDT</td><td></td><td> </td> 06/12/2020 01:54:00 PM [facility] ECHO TTHRC R-T 2D W/WOM-MODE COMPL SPEC&COLR DOP <td>E CHOCARDIOGRAM 2D COMPLETE</td><td>Routine</td><td>06/12/2020 1:32 PM EDT</td><td></td><td> </td> 06/12/2020 01:32:22 PM [facility] CYTOLOGY NON GYNECOLOGICAL <td>CYTOLOGY NON GYNECOLOGICAL</td><td>Routine</td><td>06/12/2020 1:22 PM EDT</td><td></td><td> </td> 06/12/2020 01:22:00 PM [facility] ABDOM PARACENTESIS DX/THER W IMAGING GUIDANCE <td>WY A BDOM PARACENTESIS DX/THER W IMAGING GUIDANCE</td><td>Routine</td><td>06/12/2020 11:49 AM EDT</td><td> Alcoholic cirrhosis of liver with ascites Hepatic encephalopathy</td><td> </td> 06/12/2020 11:49:47 AM EDT Hepatic encephalopathyAlcoholic cirrhosis of liver wit h ascites [facility] Hepatic encephalopathy Alcoholic cirrhosis of liver with ascite s EKG 12-LEAD - CMAXX REPORT <td>EKG 12-LEAD - CMAXX REPORT</td><td></td><td>06/12/2020 11:33 AM EDT</td><td></td><td></td> 06/12/2020 11:33:49 AM [facility] EKG 12-LEAD - CMAXX REPORT <td>EKG 12-LEAD - CMAXX REPORT</td><td></td><td>06/12/2020 11:33 AM EDT</td><td></td><td></td> 06/12/2020 11:33:49 AM [facility] EKG 12-LEAD <td>EKG 12-LEAD</td><td>Rout ine</td><td>06/12/2020 11:33 AM EDT</td><td></td><td> </td> 06/12/2020 11:33:49 AM [facility] EKG 12-LEAD - CMAXX REPORT <td>EKG 12-LEAD - CMAXX REPORT</td><td></td><td>06/12/2020 11:33 AM EDT</td><td></td><td></td> 06/12/2020 11:33:00 AM [facility] COMPREHENSIVE METABOLIC PANEL <td>METABOLIC PANEL, COMPREHENSIVE</td><td>Routine</td><td>06/12/2020 9:49 AM EDT</td><td></td><td> </td> 06/12/2020 09:49:00 AM [facility] HEPATITIS C ANTIBODY <td>HEPATITIS C ANTIBODY</td ><td>Routine</td><td>06/12/2020 9:49 AM EDT</td><td></td><td> </td> 06/12/2020 09:49:00 AM [facility] IADNA HEPATITIS C QUANTIFICATION <td>HEPATITIS C RNA, QUANTITATIVE, PCR</td><td>Routine</td><td>06/12/2020 9:49 AM EDT</td><td></td><td> </td> 06/12/2020 09:49:00 AM [facility] MAGNESIUM <td>MAGNESIUM LEVEL</td><td> Routine</td><td>06/12/2020 9:49 AM EDT</td><td></td><td> </td> 06/12/2020 09:49:00 AM [facility] HEMOGLOBIN GLYCOSYLATED A1C <td>HEMOGLOBIN A1C</td><td>Routine</td><td>06/12/2020 9:49 AM EDT</td><td></td><td> </td> 06/12/2020 09:49:00 AM [facility] AMMONIA <td>AMMONIA LEVEL</td><td>Ro utine</td><td>06/12/2020 9:49 AM EDT</td><td></td><td> </td> 06/12/2020 09:49:00 AM [facility] XR CHEST FRONTAL ONLY [id number] <td>XR CHEST FRONTAL ONLY 70105</td><td>Routine</td><td>06/12/2020 9:25 AM EDT</td><td></td><td> </td> 06/12/2020 09:25:43 AM [facility] RESPIRATORY PATHOGEN PANEL <td>RESPIRATORY PATHOGEN PANEL</td><td>Routine</td><td>06/12/2020 8:05 AM EDT</td><td></td><td> </td> 06/12/2020 08:05:00 AM [facility] COVID-19 PCR <td>COVID-19 PCR</td><td>Rou jerardo</td><td>06/12/2020 8:05 AM EDT</td><td></td><td> </td> 06/12/2020 08:05:00 AM [facility] MRI SPINAL CANAL THORACIC W/O CONTRAST MATRL <td>MR TH ORACIC SPINE WITHOUT CONTRAST [id number]</td><td>STAT</td><td>06/12/2020 6:46 AM EDT</td><td></td><td> </td> 06/12/2020 06:46:[address] [facility] [address] LUMBAR SPINE W/O CONTRAST MATERIAL <td>CT LUMBAR SP INE WITHOUT CONTRAST [id number]</td><td>STAT</td><td>06/12/2020 3:58 AM EDT</td><td></td><td> </td> 06/12/2020 03:58:58 [address] [facility] CT THORACIC SPINE W/O CONTRAST MATERIAL <td>CT THORACI C SPINE WITHOUT CONTRAST [id number]</td><td>STAT</td><td>06/12/2020 3:58 AM EDT</td><td></td><td> </td> 06/12/2020 03:58:58 [address] [facility] CT CERVICAL SPINE W/O CONTRAST MATERIAL <td>CT CERVICA L SPINE WITHOUT CONTRAST [id number]</td><td>STAT</td><td>06/12/2020 3:58 AM EDT</td><td></td><td> </td> 06/12/2020 03:58:58 AM [facility] IAAD EIA HIV-1 AG W/HIV-1&HIV-2 ANTBDY SINGLE <td>HIV AG AB COMBO SCREEN</td><td>Routine</td><td>06/12/2020 1:33 AM EDT</td><td></td><td> </td> 06/12/2020 01:33:00 AM [facility] ETHYL ALCOHOL LEVEL <td>ETHYL ALCOHOL LEVEL</td> <td>Routine</td><td>06/12/2020 1:33 AM EDT</td><td></td><td> </td> 06/12/2020 01:33:00 AM [facility] PROTHROMBIN TIME <td>PROTIME INR</td><td>Rout ine</td><td>06/12/2020 1:33 AM EDT</td><td></td><td> </td> 06/12/2020 01:33:00 AM [facility] BLOOD COUNT COMPLETE AUTOMATED <td>CBC AND DIFFERENTIAL</td><td>Routine</td><td>06/12/2020 1:33 AM EDT</td><td></td><td> </td> 06/12/2020 01:33:00 AM [facility] THYROID STIMULATING HORMONE TSH <td>TSH</td><td>Routin e</td><td>06/12/2020 1:33 AM EDT</td><td></td><td> </td> 06/12/2020 01:33:00 AM [facility] THIAMINE <td>VITAMIN B1</td><td>Routi ne</td><td>06/12/2020 1:33 AM EDT</td><td></td><td> </td> 06/12/2020 01:33:00 AM [facility] PHOSPHORUS INORGANIC <td>PHOSPHORUS LEVEL</td><td >Routine</td><td>06/12/2020 1:33 AM EDT</td><td></td><td> </td> 06/12/2020 01:33:00 AM [facility] MAGNESIUM <td>MAGNESIUM LEVEL</td><td> Routine</td><td>06/12/2020 1:33 AM EDT</td><td></td><td> </td> 06/12/2020 01:33:00 AM [facility] LIPASE <td>LIPASE LEVEL</td><td>Rou jerardo</td><td>06/12/2020 1:33 AM EDT</td><td></td><td> </td> 06/12/2020 01:33:00 AM [facility] FOLIC ACID SERUM <td>FOLATE</td><td>Routine</ td><td>06/12/2020 1:33 AM EDT</td><td></td><td> </td> 06/12/2020 01:33:00 AM [facility] CYANOCOBALAMIN VITAMIN B-12 <td>VITAMIN B12</td><td>Ro utine</td><td>06/12/2020 1:33 AM EDT</td><td></td><td> </td> 06/12/2020 01:33:00 AM [facility] HEPATIC FUNCTION PANEL <td>HEPATIC FUNCTION PANEL A</td><td>Routine</td><td>06/12/2020 1:33 AM EDT</td><td></td><td> </td> 06/12/2020 01:33:00 AM [facility] BASIC METABOLIC PANEL CALCIUM TOTAL <td>BASIC METABOLI C PANEL</td><td>Routine</td><td>06/12/2020 1:33 AM EDT</td><td></td><td> </td> 06/12/2020 01:33:00 AM [facility] ECG ROUTINE ECG W/LEAST 12 LDS W/I&R <td>POCT AMB EKG</td><td>Routine</td><td>03/15/2020 2:36 PM EST</td><td> Abnormal EKG PVC's (premature ventricular contractions)</td><td> </td> 03/15/2020 07:36:00 PM EST PVC's (premature ventricular contractions)Abnormal EKG [facility] PVC's (premature ventricular contraction s) Abnormal EKG ECG ROUTINE ECG W/LEAST 12 LDS W/I&R 01/13/2020 12:00: 00 AM EST [email or web address] ([facility]) Immunization: Flublok Quadrivalent (18 years & older) 0.5mL IM (Influenza) 01/13/2020 12:00:00 AM EST eCW1 ([facility]) Results ID Date Data Source [id number] 12/14/2020 10:40:00 AM EDT [facility], ) Name Value Range Interpretation Code Description Data Larua rce(s) Supporting Document(s) [id number] [Mass/volume] in Serum or Plasma 5.9 ng/mL Normal (applies to non-numeric results) [facility] ([facility], ) THE AFP ASSAY IS PERFORMED ON THE [employer] BY CHEMILUMINESCENCE AND SHOULD NOT BE COMPARED [...] % 0.0-10.91 Normal (applies to non-numeric results) [facility]) By: LAB DRAW Time: 917 ID Date Data Source [id number] 12/14/2020 10:40:00 AM [facility]) Name Value Range Interpretation Code Description Data Laura rce(s) Supporting Document(s) Prothrombin Time 16.2 s 12.7-14.5 Above high normal [facility] ([facility]) Inr 1.25 Normal (applies to non-numeric resul ts) [facility] ([facility]) THERAPUTIC HUMAN INR VALUES INDICATIONS NORMAL RANGES PROPHYLAXIS/TREATMENT OF: VENOUS THROMBOSIS 2.0-3.0 PULMONARY EMBOLISM 2.0-3.0 PREVENTION OF SYSTEMIC EMBOLISM FROM: TISSUE HEART VALVES 2.0-3.0 ACUTE MYOCARDIAL INFARCTION 2.0-3.0 VALVULAR HEART DISEASE 2.0-3.0 ATRIAL FIBRILLATION 2.0-3.0 MECHANICAL VALVES(HIGH RISK) 2.5-3.5 RECURRENT MYOCARDIAL INFARCTION 2.5-3.5 ID Date Data Source [id number] 12/14/2020 10:40:00 AM [facility]) Name Value Range Interpretation Code Description Data Laura rce(s) Supporting Document(s) Bilirubin.conjugated [Mass/volume] in Serum or Plasma 0.6 mg/dL 0.0-0.2 Above high normal [facility] ([facility]) By: LAB DRAW Time: 917 By: LAB DRAW By: LAB DRAW Time: 917 By: LAB DRAW ID Date Data Source [id number] 12/14/2020 10:40:00 AM [facility]) Name Value Range Interpretation Code Description Data Laura rce(s) Supporting Document(s) Blood Urea Nitrogen 20 mg/dL 7-18 Above high normal [facility] ([facility]) Glucose, Fasting 168 mg/dL 70-100 Above high normal [facility] ([facility]) Sodium Level 136 meq/L 136-145 Normal (applies to non-numeric res ults) [facility] ([facility], ) Glomerular Filtration Rate 42.8 Below low [facility] ) <content>Units are mL/min/1.73 m2</content>
<content></content>
<content>Chronic Kidney Disease Staging per NKF:</content>
<content></content>
<content>Stage I & II GFR >=60 Normal to Mildly Decreased</content>
<content>Stage III GFR 30- 59 Moderately Decreased</content>
<content>Stage IV GFR 15-29 Severely Decreased</content>
<content>Stage V GFR <15 Very Little GFR Left</content>
<content>ESRD GFR <15 on [employer]</content>
<content></content> Creatinine For GFR 1.74 mg/dL 0.70-1.30 Above high normal [facility] ([facility], ) Chloride Level 102 meq/L 98-107 Normal (applies to non-numeric r esults) [facility] ([facility]) Potassium Serum 3.7 meq/L 3.5-5.1 Normal (applies to non-numeric results) [facility] ([facility], ) Calcium Level 8.7 mg/dL 8.8-10.2 Below low normal [facility] ([facility]) Anion Gap 4 meq/L 8-16 Below low normal [facility] ( [facility], ) Carbon Dioxide Level 30 meq/L 21-32 Normal (applies to non-num karla results) [facility] ([facility]) Alt/SGPT 21 U/L 12-78 Normal (applies to non-numeric resul ts) [facility] ([facility]) Ast/Sgot 24 U/L 7-37 Normal (applies to non-numeric resul ts) [facility] ([facility]) Total Protein 6.5 GM/DL 6.4-8.2 Normal (applies to non-numeric re sults) [facility] ([facility]) Bilirubin,Total 1.1 mg/dL 0.2-1.0 Above high normal [facility] ([facility]) Alkaline Phosphatase 150 U/L 45-117 Above high normal [facility] ([facility]) Albumin 2.1 GM/DL 3.2-5.2 Below low normal [facility] ( [facility]) Albumin/Globulin Ratio 0.5 Normal (applies to non-n umeric results) [facility] ([facility]) ID Date Data Source [id number] 12/14/2020 10:40:00 AM EDT [facility] ([facility]) Name Value Range Interpretation Code Description Data Laura rce(s) Supporting Document(s) White Blood Count 5.8 10 4.0-10.0 Normal (applies to non-numeri c results) [facility] ([facility]) Red Blood Count 3.30 10 4.30-6.10 Below low normal [facility] ([facility]) Hematocrit 30.2 % 42.0-52.0 Below low normal [facility] ( [facility]) Hemoglobin 9.8 g/dL 13.5-17.5 Below low normal [facility] ( [facility]) Mean Corpuscular Volume 91.5 fl 80.0-96.0 Normal ( applies to non-numeric results) [facility] ([facility]) Mean Corpuscular Hemoglobin 29.7 pg 27.0-33.0 Norm al (applies to non-numeric results) [facility] ([facility]) Mean Corpuscular HGB Conc 32.5 g/dL 32.0-36.5 Normal (applies to non-numeric results) [facility] ([facility]) Red Cell Distribution Width 16.4 % 11.5-14.5 Above high normal [facility] ([facility]) Platelet Count, Automated 55 10 150-450 Below low normal [facility] ([facility]) Lymph % 10.5 % 24.0-44.0 Below low normal [facility] ( [facility]) Neutrophils % 72.6 % 36.0-66.0 Above high normal [facility] ([facility]) [place] % 11.3 % 2.0-8.0 Above high normal [facility] ([facility]) Eos % 3.9 % 0.0-3.0 Above high normal [facility] ([facility]) Baso % 1.0 % 0.0-1.0 Normal (applies to non-numeric resul ts) [facility] ([facility]) Neutrophils # 4.2 10 1.5-8.5 Normal (applies to non-numeric re sults) [facility] ([facility]) Nucleated Red Blood Cell % 0.0 % 0-0 Normal (applies to n on-numeric results) [facility] ([facility]) Immature Granulocyte % 0.7 % 0-3.0 Normal (applies to non-n umeric results) [facility] ([facility]) Lymph # 0.6 10 1.5-5.0 Below low normal [facility] ( [facility]) [place] # 0.7 10 0.0-0.8 Normal (applies to non-numeric resul ts) [facility] ([facility] [facility] Eos # 0.2 10 0.0-0.5 Normal (applies to non-numeric resul ts) [facility] ([facility]) Baso # 0.1 10 0.0-0.2 Normal (applies to non-numeric resul ts) [facility] ([facility]) ID Date Data Source [id number] 10/16/2020 01:34:00 PM EDT [facility] Name Value Range Interpretation Code Description Data Laura rce(s) Supporting Document(s) SARS coronavirus 2 RNA [Presence] in Res piratory specimen by BRYCE with probe detection NEGATIVE NYSDOH This lab was ordered by [facility] a nd reported by [facility]. ID Date Data Source [id number] 09/19/2020 12:06:06 PM EDT [facility] Name Value Range Interpretation Code Description Data Laura rce(s) Supporting Document(s) Progress Note [facility] UIJEYc0bTsWRAzSj82/HBEadEMDoe4XcPVoqNUe3JLlbLXYqJ0AmLEX3fQ1wEER6ZMjSTsKpUhKqQyP2 lbm [file] DQogICAgICAgICAgICAgICAgICAgICAgICAgICAgIC AgICAgICAgICAgICAgICAgICAgICAgICAgICAgICAgICAgICAgICAgICAgICAgICAgICAgICAgICAgIC AgICAgICAgICAgDQogICAgICAgICAgICAgICAgICAgICAgICAgICAgICAgICAgICAgICAgICAgICAgIC AgICAgICAgICAgICAgICAgICAgICAgICAgICAgICAg ICAgICAgICAgICAgICAgICAgICAgDQogICAgICAgICAgICAgICAgICAgICAgICAgICAgICAgICAgICAg ICAgICAgICAgICAgICAgICAgICAgICAgICAgICAgICAgICAgICAgICAgICAgICAgICAgICAgICAgICAg ICAgDQogICAgICAgICAgICAgICAgICAgICAgICAgIC AgICAgICAgICAgICAgICAgICAgICAgICAgICAgICAgICAgICAgICAgICAgICAgICAgICAgICAgICAgIC AgICAgICAgICAgICAgDQogICAgICAgICAgICAgICAgICAgICAgICAgICAgICAgICAgICAgICAgICAgIC AgICAgICAgICAgICAgICAgICAgICAgICAgICAgICAg ICAgICAgICAgICAgICAgICAgICAgICAgDQogICAgICAgICAgICAgICAgICAgICAgICAgICAgICAgICAg ICAgICAgICAgICAgICAgICAgICAgICAgICAgICAgICAgICAgICAgICAgICAgICAgICAgICAgICAgICAg ICAgICAgDQogICAgICAgICAgICAgICAgICAgICAgIC AgICAgICAgICAgICAgICAgICAgICAgICAgICAgICAgICAgICAgICAgICAgICAgICAgICAgICAgICAgIC AgICAgICAgICAgICAgICAgDQogICAgICAgICAgICAgICAgICAgICAgICAgICAgICAgICAgICAgICAgIC AgICAgICAgICAgICAgICAgICAgICAgICAgICAgICAg ICAgICAgICAgICAgICAgICAgICAgICAgICAgDQogICAgICAgICAgICAgICAgICAgICAgICAgICAgICAg ICAgICAgICAgICAgICAgICAgICAgICAgICAgICAgICAgICAgICAgICAgICAgICAgICAgICAgICAgICAg ICAgICAgICAgDQogICAgICAgICAgICAgICAgICAgIC AgICAgICAgICAgICAgICAgICAgICAgICAgICAgICAgICAgICAgICAgICAgICAgICAgICAgICAgICAgIC NuTJVrJUCpRBCjOQHgZZIdNAZiHEz3S0irTCUfMEPfGQ2bTVo0Xr2+KWyCZxTdYMM5fzDssW0UBB0fz5 RsNCkjEITeg7ZiCQa9IY3YOKTuENsuCF4DBDizfz7F FUQhGQCraOFLp9btVuQqAVC3MDLaPzewOQ8MNROtL1kgxbBvOUFxHLNBKE3PDoTeH8CqsB86UBNNTp5+ TXwblnTkIyoHEaV7DDPlk6LjXHh1RW4YNNKhBaeum7DaTiKcGMUHIFhoFT3JJZJ6GYEmGRDnDa1XHUQz A715ksVgXA3NMv2KPqOuDC0bac1ZRtVpCGBnRvkSOr q0IPdiAM8DfOVqULyTdi3uunNhshEVa1ZaquKxcXARhHduuCRxMFRbNFS7NDztNBypKSXlMKLyHj7hZy 4wGMEyCQU7JhXdGQAAMC5GPGXkTGCzeDQcZLJqEWQZBH8FWQxrDJM7QYTvqnHcfZEcPHzjWD9MNSZrct QgMTkgMCBSDQo+Nl3ILN3qx4FaICzaDVWqUN6tcz3Z VFnODuKrR8A7iBBmX0Z0PFfqYk2IIDKsAMYyULeeERCHSGiaIZ2FBX4ksiY8AX9VnTZrDBGoZRKnrBLz SDe0Y04rgLVxFBrgAN8QGMR+Fady+Cp3OCZYeXDJtPMNeOhLmCGLEOjHlW6QuI2ETp1UuL9PxFV01uYjp ejNaWIdgSE0BWS0eERWxCQDYDS0AmAKkvZ8vwqJmZQ MxLOPFPvPhM34wqKKpTBRdNPY4INGpRu2FENDxR0MrkyHpgYkcgxPvYAZwDRDIUK8PHAzqfuFifQLthW piHS68bBqcPD4NJj5FUgGrPP4ghw0VnMJsBv5WCAGxOt0ZDRCsQGBbUYJtJAP8MQEgTvWgQKocOQJpVM QqKVQ4KTNkNXGlPS0KBdMiIMNsEYtjNXMyUMZwPWZb fi3ZRWVdHEPcHSq2GDDdWXRwYVChSTpjRNXwVJWxVFT1JOKvEVIxDE4JHpLeZSKuDCS2VeMpQLRaOZVi vy1MHFHiERZhXzY0QRJhGPOaVPHrQMsjVOFnILPjGVD4DNJbYTMaAE4WIvLuKHNmTIQcSdAvIVSlEWRn tk9VBAUsNSNuOqTsOLOfVCFxCPBzGDagJGXyUGU4Lh HtUKBjKXLdFM2WOyToUVDnMZY7IyXsOKMaHKNnzy9DJLTtUAUqIMs0AsIsNPDhJUPlJNcyAAAhPVK9OV U6BPUpBOMeCT1SGaBgQYZqMHU6WsRaPXGkYFCxph5UCSQsKNSvSrRwHnMfAHHtIFKqNLidYQGyBQT7QW klZQBfPGNxIJ4NVyTaGUUzSNiwKAveOYFrJFFfjz9I HKOlGGRdWiNyIPCnOTSzPUAaXEsoECPwHNM5UKR8PYRpXNIhFT4SNgAqUVBzOQj6AqoeYOPxVOIlwf6T QHBbQPUoMMK5RORrYPTbOSPvYEs6kbSrsOEdFWo6SK5SI5LkapTbLeETQu1Ve037TADuSNMmGb0CR2xl Jp2hOBMvAGUWQt5ADBm3NCZySUYlXnH6VmbpGJq2GC HvBOAvAhDqJcP7AAQtOHL+QPo9TnC0JqC2QPTxXMK0AJbvAeUnXLWyJPI2UZd6ChQ4FZ0mCJQHNq5+DQ wwdKVkqBflOFZOMoT4JhWfAMynLFKNCx8Y ID Date Data Source [id number] 09/07/2020 11:20:40 AM EDT [facility] Name Value Range Interpretation Code Description Data Laura rce(s) Supporting Document(s) Progress Note [facility] KPZHRx7sXhLJZhXx34/OEXkhOLUio3IvBYzaNGd0OQowYHTpV7BnZKS8rR1jLGR7HWtZCqCtQiZpVtB5 lbm AaZkxUPsUqKUJkMdaHKxHgKHnaMsdudSKcRF2NwXY3YQVxV18gPBPeJWSqT9DtQCPyJkI+Af7PGDLnsY GfAL5NEowG0R1mi0c7Vn9+qW7EEckihuj9YwhWHfzC6AROXXAGPud3wru3PZ2i4f7TAt5uN6/gg53zCf Edzz7P0is15amPiLSO5Oxa+NU4UCU4VRG/jcR3cgc6 nlj+t/pnrJUYXYu//02sH/RZ1xI1I1RC0MQtJF7hkxI/69tDF3e5ZQbvYUFnxoKSSvfhdaiNQ9XPwuS1 2pc5JmadnW5ft+ViRxvEeiRgVTo5itRtfVAWEwzTEDa3DlOlr/YqZEJfeWOmSucCN0veCPWWcdJsnkZ+ p5tJZRA49miEN/K3FQQQIyPakxWHTT+WSkxySYDM95 0tvP8puIT4s9YQZSKy8+mzRiqQkKd5UpihWXnchwhcilEyjAafiNN0cPq3Y7eH/RsRa8z8tbxlhcVY+W CfZ+KCFz/NMnCPgDw7ZZJTB3wq1eH1yFyoo5cx4NqGB0eqvtJBO9f63AUu6w1ektm+mfS3Vkg1bBt6Y6 oqThgpR9RaEdtvVv5FtfC23LqmbDuwJ/nfqMttrXP8 SANDRA+UGwfiQ9zoEsw3PAsKUn2jN7gxWWXSGBSqtWyHPQxKWKEgVhrMl1I0ym2qOpq4qn2Dp5ZG9JEduIkf [file] MbKtZdTFZyR0R5UsZ2LDQlQp7jJAYXSp2+RPjszKQgeCetCKOGByVgRxQ4ROdySYLNLf4F ID Date Data Source [id number] 09/07/2020 10:37:33 AM EDT [facility] XR THORACIC SPINE AP AND LATERALFINAL [...] rce(s) Supporting Document(s) ID Date Data Source [id number] 07/27/2020 11:43:38 AM EDT [facility] Name Value Range Interpretation Code Description Data Laura rce(s) Supporting Document(s) History and Physical [facility] RWEZXb4fCqBMVcQd05/KMJcdQFNlg7HyEEqcZVu2GMrlLIInX7PnRVE1gE0nWTZ7EInWSmPuAmMxXqM8 lbm [file] bDWrwRkcBWFRTgWyLDXgJSpvMKMPQz2K ID Date Data Source [id number] 07/18/2020 09:44:19 AM EDT [facility] IR IMAGE GUIDED NEEDLE DRAIN PROCEDUREFI NAL RESULTInterpreted by:Cherie Tsang MDPROCEDURE: ULTRASOUND GUIDED PARACENTESISHISTORY/INDICATION: Ascites.TECHNIQUE:Operators:Attending physician: Joanie [...] rce(s) Supporting Document(s) ID Date Data Source [id number] 07/17/2020 01:52:43 PM EDT [facility] Name Value Range Interpretation Code Description Data Laura rce(s) Supporting Document(s) ED Provider Note [facility] EMDYBu7qToBNJaXn81/CKAnkLNKzo6FqISggWSn9CXviURXxD9PcHCF6fT1pJRI5BNuEVnVgMyQaPDJ6 lbm [file] g9A78gyBRmIPyaAS6NPLT+Fady+Pu2PZFAzMZYlTBFu CySqJNLTUmKrU9IcD4GXn1BrK6VeOR18xJwdroLkCRxlYC8TYB3hWGSfDJBARI2NbUTlxY5aqlKrPSGk PRFNHaQuB18faLAgIZUkBOP9DIVcLa1TTIEmE2UuwcJblToeiaDiGKJiOFXWLV8TXMticwDhbGMsxVik HG35vPuhIS9OHo2SXaBlCJ4oop3RsJLpZh5ANQC1SP 2KVNVdPJKqVGDwGZZ5IMToTnFdWDhrTAQmJJNvQPX1IOPwSQBwVP0UUdLjNKCuJGYtETHsRHXtTIGjdt 7OPMWsNSF7Bqo4ZgJjVPYdISDsOJqnBTJjBMXdYRS8BDFcLZRwWJ5JZeHoIWSiVVBqJDVwZXLuOEHvyi 5SJBGmHSUkRjH2XYUkJNHxADRzITybFFZiEDH7Ixqp VEWrIFTnBJ5RAxOsTHLnJHG9MJZeMZTaELUeen7KNQKgLNTeZBx6KQVmQZXpVIUgGAarWAEgGMU2CRS3 VLCnOUNqXH9QQoYcWSBlQWU7ONBnPZSmXZFynh0ZZYMbKNJbTWI1TQTdELVgGPYmYPytRCLtCQG7EzI3 EPTiXLRtFJ8CBqLlOCLmRUP1BUDcPGWaSIXzkn9YYX XqXEZxGsS5VcKfGWGqCPMoOOfcIAGtYOO4Byy0OVQrPIJrLF9RMhHcLZXxIiNqNfYzHUIgZDEaox7GYG VrVWOwUJK4YqRmGVYhOZDaLRcfWVNzIZYtEDzrHUPtPLDmNE0BBaMsOPPfYaMiYGxbSHFoPMUldt2XHX MuHURcICF0PuYtNZJuXZUjKEdtAUApNWU1YMZ1RJJr SFHcUI3KSzOaTFZoRfU5DioqLCZoGEGsll2HWYJjUAEfMZK3NmZpKEMqLCUoBIqgMWExRTD5VEv9KVSm ALRtTW1GCzHoRKRvWvPoRtDuNGIqPYUuzp6IYFDhOWYzWcAtIkHsFAObNGKfCOawYMMmYZM0YuTjVAWm KLFkUX4ZGbRhVSIyCsc3ZBKhORQzRGAgnt9ASWUoDT KuPAvhDBMqTNPlXGZiKPnaDHMbSZW1VWR0HBJpNEOuKJ6TYfTjWVGoXaxvGcfxGTMlYTPdtd5OINOkCB EtQGM0ZxJuWBNaMJArHLseOGZjLIK8TtQrSFAzNQLuIZ7OHzKqCQGaRPY6MZmvGSYeHLTgjj7BXKYyDB Z4WMk6JOCiHOIiIAIhMNzgFJElNWDtTCVoRKPiOLRz SZ5SDdVjEGLnKRZ0QORsHMEkCQHjwb1HQQDxONV1Uum8NPUmDEUeZANbMSohDDEwBEAiFEUmHKFpEKPg MM2IIqVmIRYlZTVjWfzgXJPkIRRqdm5XJJLfITA8EdL7OTPbGHMeJSZuMYzyDRPyJEVjNXA2TSAwYSTg CP0KHvJsVYygRDXJPob2YUwdO9c4GBB1VR5KR7Xsm2 RcUFFpHEYRXVakIO6kjdEgUHWqFz7JA0aIAex8TMLoFLAdUOUeO6P8XZHsXoWbBFX4BrTwIbnuVADfHK 6uNKakQTKhSfW7SCXtUNk2RUWgLXG3ZNU1VOHyEOAkQDY6DvLeDS4FOl2JYqB9PTE0mGGgUo7AKER4Hh WWCsPaVE8WMSn= ID Date Data Source [id number] 07/16/2020 04:12:08 PM EDT [facility] Name Value Range Interpretation Code Description Data Laura rce(s) Supporting Document(s) Discharge Summary [facility] VEXHBt4cTwNEJhXy72/JXBcyBCYfb8JpOZqpUOl2KHhkSYRuV8XkIIO3yN2lQWP3LMdLLnZeStZpNVG5 lbm AqQivDCkWhKXCqDevQDgDpMOnhVvvozREcVA3DnRR9CARoC44aGRPbHPIpX8OxEDL1QWt+Gb4WITLoqY MqDD7JRnzH9D1yk2pEOd6ned4Ms2KiSIT5hMv096nrNBGZZ6WjbSTWtAtCVXL1LvyMKSNe3/JzWa5DTu vVLnQQW28g2EjSlWH9a2d4+4QELLxiz4+MjdH0GPvV /9Y/u7vO7EP05R+qbakR48bhq+wicoNyIiesbsh/doGkC19hh/5oFFMuK7yEhOLTHHDgCobYJM7ZM025 I67/ZpTy2yT6sEQfaAI6adDiWiaCemNwPbIixWsin1lm+FmsSlv7CX9pVLGU3LgTJFGGkglPLQvp/OXr EucP7fVOLTpC/4sLQPYP4bPIKNBlW3GNro2IDHJ/+a [file] lFTtv/YW/search planner+7PTT3pNqO5gDjaMv54r/uNx10wTqOKPZMEBl/3VhsSGo0nCN4PN0sIiNgWpWL+lER5Wj oFMR0QhKB8NC67S+rY637andeQ3ryMRifT2+uyYQx9l/nSW3Hk4osNEr8/Z/1g+v5tGnZnQzJkzapwPp t9a5w0jfCmxsURknuzB+6VnvJigko2Jrku+Coz+dsH /4LPi9RG17eBeh5Ftt7NPLY/H6WoJXGwjIqkpKRhs60e6k4kTDoVfO/vmz4BvNOxxjoffNn5EI3u4LhF Nyezai2qYsqeavDabydxGB4NhdmAEzXZ3nsNEFxeriKZyaLosejiXZxQwmJtRWnJTJhVR5nqSPZcAHOX QGOAX1RZMZqqXJTohpFc54GLYMu+T+qeBHEvfrF3AV DAfYx8HpRXy5vb+xAFjprPhSpkU2poDbcrp82ddYDaUDi9IWQUjwry0pemYGh19HAFpSwWbJCBmI2v6E YxncsVfELexosUr7JYx5viYt7aUw9N+E58z+y3A39kP2ulSu3iw75sg9zPWr09P3B8WnP9OwYXCkXqPO +jZ+xsK/RyKjELLvm9jIvgs8rl1T3Rx+p/Xo1zaQua 1rPqL+dKkenrM60qYIiVyDWNQSQQl+o7jesYd1Mh2Sjmvm4hJyJ0Knsf5BmZvcYmkCd6zcDEsL+FzJc8 N195LHC75Trp19MPrK3bIRyXmz3UnEngmbJhiPbjfokP7SQk1MF/Uhc/hDKuLTNGkkvzTITiPZC1Zqnt DGACKByosKXLVUHKSuCY7UQHOMgj7XrIfOunasb9S8 [file] AgICAgICAgICAgICAgICAgICAgICAgICAgICAgICAgICAgICAgICAgICAgICAgICAgICAgICAgICAgIC AgICAgICAgICAgICAgICAgICAgICAgICAgICAgICAgICAgICANCiAgICAgICAgICAgICAgICAgICAgIC AgICAgICAgICAgICAgICAgICAgICAgICAgICAgICAg ICAgICAgICAgICAgICAgICAgICAgICAgICAgICAgICAgICAgICAgICAgICAgICANCiAgICAgICAgICAg ICAgICAgICAgICAgICAgICAgICAgICAgICAgICAgICAgICAgICAgICAgICAgICAgICAgICAgICAgICAg ICAgICAgICAgICAgICAgICAgICAgICAgICAgICANCi AgICAgICAgICAgICAgICAgICAgICAgICAgICAgICAgICAgICAgICAgICAgICAgICAgICAgICAgICAgIC AgICAgICAgICAgICAgICAgICAgICAgICAgICAgICAgICAgICAgICANCiAgICAgICAgICAgICAgICAgIC AgICAgICAgICAgICAgICAgICAgICAgICAgICAgICAg ICAgICAgICAgICAgICAgICAgICAgICAgICAgICAgICAgICAgICAgICAgICAgICAgICANCiAgICAgICAg ICAgICAgICAgICAgICAgICAgICAgICAgICAgICAgICAgICAgICAgICAgICAgICAgICAgICAgICAgICAg ICAgICAgICAgICAgICAgICAgICAgICAgICAgICAgIC ANCiAgICAgICAgICAgICAgICAgICAgICAgICAgICAgICAgICAgICAgICAgICAgICAgICAgICAgICAgIC AgICAgICAgICAgICAgICAgICAgICAgICAgICAgICAgICAgICAgICAgICANCiAgICAgICAgICAgICAgIC AgICAgICAgICAgICAgICAgICAgICAgICAgICAgICAg ICAgICAgICAgICAgICAgICAgICAgICAgICAgICAgICAgICAgICAgICAgICAgICAgICAgICANCiAgICAg ICAgICAgICAgICAgICAgICAgICAgICAgICAgICAgICAgICAgICAgICAgICAgICAgICAgICAgICAgICAg ICAgICAgICAgICAgICAgICAgICAgICAgICAgICAgIC AgICANCiAgICAgICAgICAgICAgICAgICAgICAgICAgICAgICAgICAgICAgICAgICAgICAgICAgICAgIC AgICAgICAgICAgICAgICAgICAgICAgICAgICAgICAgICAgICAgICAgICAgICANCjw/oNAbO8flzIYacz K9W3sgWb5DFn4APP3nk9RiKEPqWHvxmtQuAiiKUgDj PNKsFbvDHjt7WNdxBF0DpMHqH2QuP3IyGOrnQV5NYDGfMXYfrQInVNOzJLTdFuB9DQTkWEskTF4YpKOk FDkpIXJdRXGgKjKjHKFzPZRmTHZeCJVlOYMXSOZeRMPhXdAlTYoxFY7Dr0CjnFU2BFo+Ax5TRF0tv1Lf CLdnZZXjKW9iub0THHbPOnVsR6BoueL4VAA1TTScEn 0JPICgGNVjrKYdYJFcUJJWBtZsN0XnqK88BRYMHd7+WWsgwaCdUqbHCxA8QZKth9UkNPa2SF8DQRBcRB z1eYIkLYvuW2jabnuiUCC8tR1knzofEjukN7Idi7ydYXRMBNRlzk2xlLytJvPlMSDrVV1yXJ6dANEaKL VjXpKjVOYZIF4XCOXwTACsrQPcNYKzDFTJBW7XVBoc AFN6LRWzqeRabLMrBJiwCS0ZAJLkuvPmWtizNJLXYNw+Ow9ARZ7yf2NnPGdaYUMvCD8uug4CNTxVDfIm K3J4hKDcR1C1MNblJm2XZFSzZBNoSnPhCXAAHCqrJI3UKZ7acrW9RB4SxBImZCUyENTqiDRrMGc7T63y jQQyHRwoRC2XWDI+Fady+Jq6DDMOjOSKeDRFnOyMcSR ZKPvMtD0DaG1SJf1TiS4AsCF03nHlhbeVcESfyXQ8BCU0lQXKsCFXHFA8WjIHxxN8hypHmETUeTHAAIg NwW14kfGFpBVRdBSK2IKGcTj4GFTVoR6GzpmUqyOwllbTcKVNrFBJXIH9XFOplynOvxQKeeAnzXF86sH ndRR5UGn3PAzNsVD4irk0JaKDnYf8EGIZfDJ9MZRDs UHSaIKOfFOD5OKAoCsWdGBmtYVGzTHFkIMK2XWIxMFNuQH8JOnJlKYCwKeN5FTVzJOVbDQZdyj3XWVRl MVZnHNd6IqNqKBEoNJMwNEsxYMMrHKNpDCS2HAYqGVRcHZ1VDiHsTEEeDLKjFFEwXYUzBVGkwm5BOLHc NYNiOXFpCXNzTTIrPIPaWRrrAVRhBQO2MqvrPHAxXO GbCA2QMxAsJODmFZy9QRDzOKLcSXVorz1ZDXZaFVCiXzq5UZWmIJPgWFJiJOlmHFIbASC5KRP1DMKaYU KpCC9UQjQcPMThNDX9CUfsYHHuHGPevu4KPWOtUPYyPzP4UTVzPSGlMKIbBEbhRCPgXRT7GoaoPEWzYW PtQC5ASrWxYENpBNz8LXosXNKfTRWrdq5WOCMkLLRp CVE7BGVoLCNhOYDuMTwzVLQeABA1PzP9FNLeFPEwLC0QXePjTLYqKLx9ZaohWSYyQYHyqt1YLSWeHXPg AOr0WQTdUKQmYXAuISekMHNvRDPxAApjRAZpBYAsWY8TNhGwMOFbNcYlGymoAQArMINwex3WUHAiNBAh SsMgWGTsCSQdDJNtVJmqPBAlBJKbCWU8VHOaMFBpSL 3ILfHcGVBaLxM6JPjoOVWsAHEina4KREMwOSLnNjX0RYYpXPFsCJGoMXbpSYHuGRVoBwtoGJUdXIVhUS 6NIaLmOPZxXjW8DyLrFQPrYNJvqr2VCPHjFHClODBfWvDnKIUrSITjGLwzDDMcGJU7LFo8AETpWUEeKW 5DSlNiAXCkMmP7JJriFIJmUDHlua4PIJZhIWUfNwSq LcChWSXtSPQjDFx4jnAzaYHrOPy1CZ3QV0CkqrOlDfHSTc1Zw674IBUuVCUeKd3QV6imLd7cIITgBUQA Sc9XYBd1OBxqL5YfP1V8QnTzUhhyVYM0TUT3QVV8VWl3MwSrAxH+ULo5AUV8B3ErXbt6UlY7OTXcDQLh EpO8HaWbLFYiWfI7EQ9lYDNXFr6+BXftxUZkkEnjQFCTOuI2BoF3MDtgEEHBBk4P ID Date Data Source [id number] 07/16/2020 04:03:20 PM EDT [facility] Name Value Range Interpretation Code Description Data Laura rce(s) Supporting Document(s) Progress Note [facility] TNRJXs5fKlFPUuCo84/DXNpkSGJxq2OlUYuaCIk5GPttYKRcO3YxNZW2hC5lBNK9IYaCGsEwAqVaGKF9 lbm [file] MAUoJBN6EFXuRIrqVkFuOlL4MinyQsdvHFWtRsS+ ZK7uLVq+Ea2Hh7TnrjV7kkPaVPq7CBGoAAgxPBSUQc6Y ID Date Data Source [id number] 07/16/2020 03:24:33 PM EDT [facility] Name Value Range Interpretation Code Description Data Laura rce(s) Supporting Document(s) Progress Note [facility] BLABOv3cXqAFRzOk43/VJUysFKVqz8IfSDeqBGl4YPcdNCBjG5KmHYF2eK9qLHY4ARuNDkGbCnVoQQI2 lbm [file] AgICAgICAgICAgICAgICAgICAgICAgICAgICAgICAgICAgICAgICAgICAgICAgICAgICAgICAgICAgIC LeUNXrHXVeQNScOOPoSQ1XYWVsWINxGEJdLCNjUPCm ICAgICAgICAgICAgICAgICAgICAgICAgICAgICAgICAgICAgICAgICAgICAgICAgICAgICAgICAgICAg TUAwKWRuYFKlLBFhVYAlLKNpARRsSARzUI5JITNeOGCvEJLzGFTmKSHmYTGcEBRxJANlKPCaQVFgVFSv ICAgICAgICAgICAgICAgICAgICAgICAgICAgICAgIC NrELEhWAOzKZAsHQHkQIEoUSUiBWSuHXCwZHQhBQEdYZVmVA0SJIOrPZNwOWDnUSLgKBBnBPFsKJFbXS AgICAgICAgICAgICAgICAgICAgICAgICAgICAgICAgICAgICAgICAgICAgICAgICAgICAgICAgICAgIC CyIZAvTGGhBNDoZYQfYWHoVS2GZDZbPGFfUWZbAOAt ICAgICAgICAgICAgICAgICAgICAgICAgICAgICAgICAgICAgICAgICAgICAgICAgICAgICAgICAgICAg VOPdENXtIIZrCMLtMHIzPIOyCWWpIYGxNXNtYH3PYBSwPYMbLZMpOIJkNIHoJRHkSYQvDVPaOYGiHFNy ICAgICAgICAgICAgICAgICAgICAgICAgICAgICAgIC EvQQSfDDAtLPBfKSPmXASiSQSpJOFpLAZuYENbJFRnZGClGIMfNF6ZPHPzTVDlNBDhWFDlXYBgTJQpSG AgICAgICAgICAgICAgICAgICAgICAgICAgICAgICAgICAgICAgICAgICAgICAgICAgICAgICAgICAgIC MbDSHcDLJbIEJhKJMiKCRlRITtQQ0MRKZiXMKiQPDk ICAgICAgICAgICAgICAgICAgICAgICAgICAgICAgICAgICAgICAgICAgICAgICAgICAgICAgICAgICAg REJyXYAnGOHbSRYaVTOaQUStNKVyHZLsQWAlCBUmTM9BJOTqTXHlQMKiBCNiBIHyBUKaFSQuSNGvGNNg ICAgICAgICAgICAgICAgICAgICAgICAgICAgICAgIC DzSJUnUAKuIYYfJHRyKRSvHIYxDLXmEHOrVPHoAGDeJSOdPYFeKALaKL7KTEHfVKPfEBOmBLAdFKFzJV AgICAgICAgICAgICAgICAgICAgICAgICAgICAgICAgICAgICAgICAgICAgICAgICAgICAgICAgICAgIC WsRCViYJNvCTLqVWLnETZtSUKvSBQuAE9LOZ54dKBz m9Y4IFTyAK3qfoc/Ao8IMWvemaAxvMKsLP9CMxEtTQ7hcg4BKcRsVR3hyi6YWHmWIuWdM0V1lVOjAAJy BLALMzWqS11zIHzrAy12RPlgZXWkEzIuMQd7Ja7ZGnQtE9qsGBNjWyB7UPVbVcXvDDtzAX8Jn1MtpLCq DQo+Si7FLJ0an2TyMTyiPYMdOD0uwo5UNPwBPjAeA5 OddyS3PSF1HRYjQk8KIJFqEBSefUIwQHXiONHAXuFvT3JfyJ59CVLDPl2+FHuyiqWqXggKDcY4YFYfm5 SqYYn3TS7SCQOyEUl0iTUiQSQnQ8Zsp2WjBe26VNDaNznjZVfqbBcoKYZ8heEwvJlvMf2fIRUxIV5yYV 4sMCPiWGPsFxXiJWRLRE1GDHKiDYCjgPUbAFOsYABX SX4STDyiEXH9FEIeztGhlTAcSHhiWO2IPTMiqtFsCDKeFPVJTLy+Fp1HMY1wv6MbUFqmDmKvJA6rwf6J USsDPxVhU5R6wFThG8J0VNgiXg9QLONnDYBsFQPpDXYPAKpwDL3EBD3ahyX4RG1XrUZyZZHjHWGpeWXy XRq2C46kcJZrKPlpKU7NWIY+Fady+Ig9DQWAhBFIdPW AaVjSaEYFIFvPdX0DmD1CZx1HbS0WfUE92mQbmciVoWSwuUS8AED1eMCSrPGLSHE1OiUMdbI7erbMwJV QlWQIIHtGtS48dsUYjGYMwYDTqWEDaSk7ZGISrN2JbplXamCzmkxVwSTNyLCYBYT8ZWKuouuRlzXBalW wzIL49sCnqOY5CVu5ZPzXbLJ9gzf4QfAFzGx0TQCZp Np2FNWRkVYYkGANiNGI1LCEpGmCjQQpiTEHgJXKrFZA9YRTsLMVgKJ5ZHaIzTVFbGKS8UhmnPDPbKRXk dk5VYCGdDHErDbG9VOGyEBBdABGbJCslOIUrYUMdCPO1HKGhIBUnHT4XNvIxFHYfPIV3KrfsLOIjLEVp kw1HTELaNCIyZTy9DaImHAMnVKRqXNqxGJNjDHBpMZ GyFZVmKCXrWW6HZaOyGOUoVWWqDlwoGWVpKIQbgh3LEFZvBOFdSuQxCMXsOYPqMKIuGVriGHTvUIU2Zp Y6GVBwDQDcLN7GMqSmXBNdQHZ6YahiIWAcYEMhrv6LZNRjRWSuMBI0SKSvMWHuFMDnYOgxBWGmHTK9ZL T8JWCbOGImIF7KWrWpZQUhXCH7DQyhUKMlCKPvxt0P QWYcYYHkTqV2PLQgPVOzXXZzJSbhQFTtAWO8VmZ4QGTjEZVrOV9UKyNtHNpeQADXNcd5WChfM2m5QXPl Ip9QL9Czk8WdWFDdRRKLNZhiIF7xqjQqJKNxUy3AI9sQEgysHHF4E6EoDHDgCQHtOJT3KIdqDnrhRIC9 BaknPfA1Ul0xOLD8CaFgVUTbFVGjDVWuEJR3ZUFuZp IvZuzpWWN2AtqrEhXwVW8KVj2KWoI1CLK4rTMiKq5TKlq4OD6HCCQQG3QVUw== ID Date Data Source [id number] 07/21/2020 12:12:44 PM EDT [facility] Service Cmnt XXX-Imp : NoneGram Stn XXX : 3+WBC'S Seen.No organisms seenSpecimen concentrated prior to staining.Microorganism XXX Cult : No growth 5 days Name Value Range Interpretation Code Description Data Laura rce(s) Supporting Document(s) ID Date Data Source [id number] 07/16/2020 12:51:51 PM EDT [facility] Name Value Range Interpretation Code Description Data Laura rce(s) Supporting Document(s) Albumin [Mass/volume] in Body fluid 0.8 g/dL [facility] (NOTE)The performance characteristics of this test for this specimen typewere determined by the Department of Pathology at [facility] and approved by the [facility] Department of Health. It has notbeen cleared by the FDA. ID Date Data Source [id number] 07/16/2020 01:40:59 PM EDT [facility] Name Value Range Interpretation Code Description Data Laura rce(s) Supporting Document(s) Color of Body fluid [facility] Appearance of Body fluid [facility] Erythrocytes [#/volume] in Body fluid by Manual count 325 /uL 0 H [facility] Cell count panel - Body fluid 70 /uL <200 [facility] Microscopic observation [Identifier] in Body fluid by Other stain [facility] Cell count and Differential panel - Body fluid [facility] Neutrophils/100 leukocytes in Body fluid by Manual count 1 % < 25 [facility] Monocytes+Macrophages/100 leukocytes in Body fluid by Manual count 73 % [facility] Lymphocytes/100 leukocytes in Body fluid by Manual count 13 % [facility] Other cells [#] in Body fluid by Manual count 13 % [facility] ID Date Data Source [id number] 07/16/2020 08:46:09 AM EDT [facility] Name Value Range Interpretation Code Description Data Laura rce(s) [facility] Document[facility]s) [facility] VBNIRo3wQrDJUgMci4KkKkDpHRRgXR4gdao1A8B6dWIkY2UssFIar8owE4IzX4YpEGNqJVEHXY7VxARe jb2 [file] Luís/scbAA0/hOzp5CIz8eMyaWxbz+MSHzMis6LQ+t6vjr6RkcSVhVWRkCTsUDmhSiiDRHLQBH9yBRFB [file] /47s81T1/524///8szZ+4os99z16o/n+y68/ dx716bzqm/z42w+/+ohmQfWp33he9IckP4L2f43lC0/+zXdv3/7yn7//5Vdv//Ve1335++lnjr092+U3 Y55y3eklzchdm/e/+yth038/fv1+kc9/51yC4583/s1Xv/7Vx//60on0V93/cX/ed6mf0yS+XeTD+/++ n+75x//kp1JN//qbr7/79cdt+rfv3/7pw28/vn34xd fffPvVh1+9t/yn/7iLeL3+8Z9++hOivXCC2437Rzbj7xN/+yxCI3nP+i/j+9/4B8h3SQB7zd+fmvyOfP 3NP72a/d37D/6TM70i/k/P9NfN/z+jFShsvH4x4y//6d9+/5c//vivb//3s5800in/+MMPf/nLjz/84e /evvjhT7//8Q9v//OvGQ2ts1/+/Ke3/nP1n+82xmc+ Hsup0nUex+sUb8bJ8z/9j3/8+b/lspskmrYr5V/+BypDjGo10ug/DXB/sz3g+ni24lUgKbP7f6mxjdCc W1G86HkMN9eksM3/E7mp8yfv4mf9jd47++O//fhunJelPnt7+/Bu6ffu+e2Ht//8bUyfsGVs461nr0/8 2fZcL76/Ndd97dn/7p3zd/d04hr04i6tthMtv0rCt8 Hf/david//j7t7/88B8/vjP732b2R1xcqv5hw1jCP4ev97i/2bxuU294/Z/+48e//D9/dfN5+mPST0+f9/ 19cjva2E/2j99+9/av//P93n//5z/75DR2HA1EDd+neLB//P7n//j974C/s4pZeP8/gvtkAiNdwD4tao l+0fzFiUnoQpQS9EsWxjlHX/k4l9278qsnH/y/P/77 X4+h74y55wVkOf50F4+qP++Dr6+3//WXf/nbn/l7LBkmessHN506yJR+/sP//N0P//77H/70k/8/lh76 +z/99P+f4dLaH/77X//vY8Jv//xgT737/mKR+MlPTnt/3khudBaGLcwBs6SEmTGx//i7/+tPv//d+x1+ 5woc7L3+/VcA36k4y27b4eT26b//x3u3+9fP/vp6O5 GJKc7ol0/e/d13/MWmwvj//0tki0ioNdx8D//cF483t4v//4aa14s0EcejDq+9pWN7lN0+vgsSbx+/+P 7rd1d172s8jXF59+1AZ190P/dT49aLF//mN1+//3cpvnhqJAcmIa1dt600UmckazAgsUYyVP8ISA2wt3 SiJjL9JLOal0JvNPlsXVu1iPPjJDhsjcGdv5Avlsio N7Fkk7IcAvGqISBaOjWcLxd5LRFqLeE4sFFgNfDcSPIpY1WhOLHtFjV2VdBwDHKABJ6OZWUodsTvMwHq IFI+GfHsXA8dgirhNCLup1NxJOrhKPmsABHkS0V0xRhrIPEqE2RveK09MQDtY1CcnsI5MLH1FSZaIoWv TGFzdCAxOSAwIFI+MpGnUD2msryiKSLkx9LfJXkeTT F0cP7dSBkYAFJSXJuBDJwiEcF3w57lglQMVPZzMRVxOX3HvrPobPfbjbOvmJKqYNR0OkZyJPH0UxUwGJ S8JEBOFNJcFCFgDFNlUXMnB0FpbDfbGYmFNJROECaUWXtdSpPxb0G3IPGunlPAOYKALibZVHGOC9LMKC T5ZQL1YZXzHA5WsSOpGBE4MVhPAGUTZFuPXKesFwGg x4K9BFJaF9XvXXIcumLuZKORMIvjKyptPP2hjHmeykzaV5KciTWhTQVDFIPtXMDjBWLaUHEpO6Uac2C7 R9AcEBhLYPPWBQlYIAksKfE1p52bwsAQCKAkHGVtRT4+OO9nv3KkKt0HXOLyBB2qaip4RE5BxIEmVH0N KWjnnvRhG1laqhStZyPcGZDFKM0iE9FziS61GIR+Pm SjDQ4jlma3fwHiDlXzSOJwNAJnIJMnEOhxJFXfCYVsOPFzRBH5CIY8EEEkBhSuFMCcFhK9WoZqLQSlPG EdupMQOQScMEF8DxU8QGYlTPGkOKQeQWrcGMEfUNQpTJE4XCGtSWRnDY6cNzNuJNTfEPQtXJCyXqM5Xs UgZiAKMDAwMDAwMDAxNiAwMDAwMCBuIAowMDAwMDAw VVk7LKWzGKQwIO0mZoGgPPHjTEDxNFEuUPCsRHTxxsUUPEAwAYHoWJB1QJFkFGSmWBAnYQlwWSAmSVSt DBT4MHQpKAMnUT0cPhLwTMJlVFW4UpTuHDFyFAIufvXUMCJdFPXbPRN2TTTkCSPmIUFaDLxyQBAzHEQh OeL8JCYnFMAcRY7iOmXpJDHtFND7SLDsLYHgRZUlpo NQINTvMSZxDSw4MlQoNTJcPLJfMEhqHZSiLJCoHUtvPVYbANNgJG7bLsGoOSPxQZSjYVFnRIGzYUKpfg SUWVQjYHBdDFI5ZyBwODTdDDKzAOvpRGHuTKOgWXS5KUXrCGFgQA6nEcDcTBJnFbFuMWaxTVXxCUGdsk AKMDAwMDAwMTYwOSAwMDAwMCBuIAowMDAwMDAxNzM0 LTPfKQMgYT8ePuIzJMVaRHQ5OEKcMQAyDDUuoqWQSMMwWARwBRJlOMV4AXIhDCTuEJs0mtDenVNvLyo6 Yk5NhXtjYPQ8Aj8NirAkVGHmTSECAp4Tv270ZMYsHQOZYfz+IymtaYIgtVfvLNGMZuV4VnzNXGDNQ0I= ID Date Data Source [id number] 07/16/2020 08:45:48 AM EDT [facility] Name Value Range Interpretation Code Description Data Laura rce(s) Supporting Document(s) [facility] NGADKo6yEcUXIxYvu7YeNsTpIORvLN7qevz5P5I0qMJrU1TuxIPxq9uvV7KnW7WvSNWdPESSHK8XdGDj jb2 [file] raieevw8WMa8ycnshmf4SBy1nsvyhqj3QLb0pekapax6RMr9tcwzs2l+DIo6blxaa8p+OOm5reazr3x+ PId8cfriz9a+BKk0asrhpfwsHVD2tswknmotHNF6jr 7MfSteUK7AbGdRRGUzTC1IpWlPSKQhCX2huPxSYVJpAI5mvXgnECRBmgwFuTfJy3DNm7ijb6ILoqnB5M XXbxR4ITQxpFZFBYYLVW2ANCdGC+zioF2j1ephjFq5rgrmpcszwe7msa5xj6pjw8In2aOh3E24lNg/a4 HqCiQ7MMn61u16Til2f4LRhxkY2TwQmpZ6VgRraKRJ mIxEYM9iOgzSS0GDjfmg52pC2XAwZea3m3+InmT65Az3/s/MF1zd0e83hX6CXwFa+ad copy writer+wUbpnPU30jP [file] +pudCfqXx79u2193l95fvLDa2qsZi6663sFhF/j9G072dtRl+n50aa9+ldkOzqm++Vp25829+6t/+floorleader L/+Aw26y62trA1571WjrrZhLwnn06t6nzsin1gUko/ r62y8//Zz2sc1XK6b22X6/9fGrt8++/vKbD99+/Pztn7/64Wr9u5/949vX//ETh9gzGk5ow0VlGM81/r dqdkuHa78s//HPg8hGkyYhl0/8+R0u5915u2j/+erz/+KXL/fg9cvP/vynf//9X/74w7+9/Y///fbb3/ /hD9//5S8/fP+Hv3v7/Ps//b0TJ3b003+T+Ne/ffvz x83v3zn/lf7fmxFf/f/tw5d/ZdKzqejcUfvjH3/+ItleXbkWwwk3e58OCy3aMP8+r1/9H4Dnq+gY042p f8/nfkpemps52tjuyNi5bUMSMF/nBmkw6715jb3QUHw95xGCtr/8+w/wdgwF6fhxsp4+/fG/f/jq828/ xV7r388//cPVl77R6yKzA8xQs/q3rQo3oi4rbu7z3J F/+R2IfTAjEKaiNpi/6rm//eFP//n3b3/5/j9/+FHt76+/t5hU1nscd4fPG0fDcWis3Kd3bdchu//Tf/ 7wl//nry4+q79N+iFw98dq32w+WvuN/oJ929707/96v/bf//lPP63+uHQ4GzGAmFU443ks/9On3wF/f5 le7WV63+8e+52rw7jbXj8+edP3kmfzf0wJMjwceb+9 vGv88zfj/uzT2/f/7w//1ysTboUgpq8v9i1+06HW2pi2T0/22//+y7/+7U+Ovm/Dl9//4Ue3d/8I/ez7 //W77//j99//6Se/vj857Uo/+nqyl0bocx1yL/75y10Kd/3zn//4i/vVEeBoz1od/fWff/eLxSfurJBJ LoEX/umH3/1ff/j9982e5DdjH34+4cOvf/31Vz85+j B35NH/8Z/dbh5ukwBD5jr+oMng653++fGrT9/zbEZr3i0/yOuLRt+8xtJvvv+uI0fU65///J1NZtwy1b eY708Cz2qdtS83MxOtHy7+2W5HhC4Wlqw19J60580/fvv+1D9/Vk329R1Qmt47UNG0inTM8su3/wA5qE xuJaMvJWE6maSziUrjinHiCgxHVCknONYjXps2FQ7M tJStCOCjJ0F2RTFdwn4fADZgJGWivKPzAkQlVCYECZ3VxYXmYY6LQLp8ZURyIHKpJhCwVBUurwE8HCYh TVHsVNHoW8KxmbBpuXCtHSHzJg3+VS2hf9AaCvGyHVBdRix1UO1WcHZwGT4DqTHzeW8ubtJzF683mkLo FUQpPunsa3ViQFqnGPYWUT5VSFP9GPY8WYNkWh1+ZW 7yj8LdReCxSTYhNbx8ZY6NiBLby6HkXG3GC9YlVDDaSAASSJH6z7LmRYGeazdmwmqlP2NqNXZ9tG8wZC P6HUXfXTvaCNFrIOJtPKG1AXSmZApjAQFbSQYxTHItTLYmHYi2aKIxPF9QR8YfHGEwKLNRESFaysSbLp 1wLTUUY1aYHDGtTELUCRNwTmY2QLi5OynfD8M0Zpjr J1ZwOY2HA1PgXFMaZCVHYLEdnoAwMW5QauHbmU4zJThGKCXEWGeFOSdiGgD4l76nzkHODNGgHQSfLTml YWNxIUKtGYRjFOVdSWPvMHRhXUCeKG5UN2MbOMAqGJWSBCU8z3CwQSZdbhohpwrkWq2rgqJmPnr+Pgox FVFki1XsCEgrC8G5lBIqD8EvX1BjJM2CmRJfGWpxQU MbCNVsSZBvI141uvFaMU2+VW3sl8FlAnabPGNMBKPjENPnFCKbKRH6ItWuCQRqAAYiIUZkGkB0YmGaIf IYTOFhWQL8QsEsOjOhHOAdUVCoSIhfZZRpOEKkLlNsBJSrFJFcRO4iGbOkMOEwXmNtIyAgJOEaUQOpjc SMVTQfJPNtMWCpRAB7TJPiELHcVQnuVRXeEZZoNTP5 XQIyPTDuVG9mGyLbVOGrVRLsQbhoIQEeUBXidpRQTEJzRWTfVVY6IcLnIHBeNXXyQIckAWKxXYVtYtr3 ZESxJVDoRG0zPeZoCGAdYNK4DRshZDInRSEfmqMDXEYyFXYzHYOoUiViBXRkKSYeTZefRRHnBYWcJvLs JPCcIJGmUN7vUtPePWKrMGE6NHPsSMDsYNPgiiGKZM RxJJIaUAq1NJHzLOIiEEBbSNtbMEPyEQUpCQZ6DYOzGBRqVT6gXnPaMYUxDZBgCLLuAYIuNAStiiTDID OsJIVuVGF9HTSiPEShEVDkEGgbYEAhSYHxTwh6CMPyOISeWK1qItQxKCBpDAB8AQZhZYDrLDYvdnFOKS UjYOM7GgFpZqXuYXRhRENeDXeuHFGyJFRsCwY6MGKm ARWvVQ2wKzXgBWOkVNN3BlAjGENsSUEwxuHUFEZxSCGzVKT1SkLnVDEmVGQcIJvxPRRyOMYzGYMpFKH9 BII1LSBgIoWvKZupCVKQXErVN3PfgjDwGoZKW7fmJa9oMaBgVTMOL3San8BxOTBxTCAPHp3+VbY4QJB1 iDPdOqa8YfD2ZisgYQGZQd== ID Date Data Source [id number] 07/16/2020 08:45:34 AM EDT [facility] Hospital Name Value Range Interpretation Code Description Data Laura rce(s) Supporting Document(s) [facility] UJKCZb2dDhRCGiUnn8RxKcTkFCEmQZ5tekb0E2T7mKAqU7JfgBTmy3ulG5YeV8CkQPHfRWZJTR4AhGZe jb2 [file] ID Date Data Source [id number] 07/16/2020 05:18:27 AM EDT [facility] Name Value Range Interpretation Code Description Data Laura rce(s) Supporting Document(s) Leukocytes [#/volume] in Blood by Automated count 4.8 10*3/uL 4-10 [facility] Erythrocytes [#/volume] in Blood by Automated count 3.11 10*6/uL 4.6- 6.1 L [facility] Hemoglobin [Mass/volume] in Blood 9.8 g/dL 13.5-18 L [facility] Hematocrit [Volume Fraction] of Blood by Automated count 29.4 % 4 1-53 L [facility] Erythrocyte mean corpuscular volume [Entitic volume] by Auto mated count 94.7 fL 80-96 [facility] Erythrocyte mean corpuscular hemoglobin [Entitic mass] by Automated count 31.5 pg 27-33 [facility] Erythrocyte mean corpuscular hemoglobin concentration [Mass/volume] by Automated count 33.2 g/dL 32.0-36.0 [facility] Erythrocyte distribution width [Ratio] by Automated count 15.4 % 11.5-14.5 H [facility] Platelets [#/volume] in Blood by Automated count 51 10*3/uL 150-400 L [facility] Differential cell count method - Blood [facility] Neutrophils/100 leukocytes in Blood by Automated count 69 % [facility] Lymphocytes/100 leukocytes in Blood by Automated count 11 % [facility] Monocytes/100 leukocytes in Blood by Automated count 15 % [facility] Eosinophils/100 leukocytes in Blood by Automated count 4 % [facility] Basophils/100 leukocytes in Blood by Automated count 1 % [facility] Neutrophils [#/volume] in Blood by Automated count 3.35 10*3/uL 1.8-7 .0 [facility] Lymphocytes [#/volume] in Blood by Automated count 0.51 10*3/uL 1.2-4 .0 L [facility] Monocytes [#/volume] in Blood by Automated count 0.71 10*3/uL 0-0.8 [facility] Eosinophils [#/volume] in Blood by Automated count 0.20 10*3/uL 0-0.5 [facility] Basophils [#/volume] in Blood by Automated count 0.04 10*3/uL 0-0.2 [facility] Nucleated erythrocytes/100 leukocytes [Ratio] in Blood by Automated count 0 /100{WBCs} 0-0 [facility] ID Date Data Source [id number] 07/16/2020 05:38:51 AM EDT [facility] Hospital Name Value Range Interpretation Code Description Data Laura rce(s) Supporting Document(s) Albumin [Mass/volume] in Serum or Plasma by Bromocresol green (BCG) dye binding method 2.7 g/dL 3.5-5.2 L [facility] Bilirubin.total [Mass/volume] in Serum or Plasma 1.7 mg/dL <1.2 H [facility] Calcium [Mass/volume] in Serum or Plasma 8.8 mg/dL 8.6-10.0 [facility] Chloride [Moles/volume] in Serum or Plasma 103 mmol/L 98-107 [facility] Creatinine [Mass/volume] in Serum or Plasma 1.23 mg/dL 0.70-1.20 H [facility] Glucose [Mass/volume] in Serum or Plasma 148 mg/dL 70-140 H [facility] Alkaline phosphatase [Enzymatic activity/volume] in Serum or Plasma 130 U/L 40-129 H [facility] Potassium [Moles/volume] in Serum or Plasma 3.9 mmol/L 3.4-5.1 [facility] Protein [Mass/volume] in Serum or Plasma 6.4 g/dL 6.4-8.3 [facility] Sodium [Moles/volume] in Serum or Plasma 133 mmol/L 136-145 L [facility] Aspartate aminotransferase [Enzymatic activity/volume] in Serum or Plasma 28 U/L <40 [facility] Urea nitrogen [Mass/volume] in Serum or Plasma 27 mg/dL 6-20 H [facility] Osmolality of Serum or Plasma by calculation 283 mosm/kg 275-300 [facility] Creatinine/Urea nitrogen [Mass Ratio] in Serum or Plasma 22 [facility] Bicarbonate [Moles/volume] in Serum 22 mmol/L 22-29 [facility] Alanine aminotransferase [Enzymatic activity/volume] in Seru m or Plasma 15 U/L <41 [facility] Anion gap 3 in Serum or Plasma 7 mmol/L 8-15 L [facility] Glomerular filtration rate/1.73 sq M pre dicted among non-blacks [Volume Rate/Area] in Serum or Plasma by Creatinine-based formula (MDRD) 63 mL/min/1.73m2 >60 [facility] Glomerular filtration rate/1.73 sq M pre dicted among blacks [Volume Rate/Area] in Serum or Plasma by Creatinine-based formula (MDRD) 73 mL/min/1.73m2 >60 [facility] ID Date Data Source [id number] 07/16/2020 05:38:51 AM EDT [facility] Hospital Name Value Range Interpretation Code Description Data Laura rce(s) Supporting Document(s) Magnesium [Mass/volume] in Serum or Plasma 1.8 mg/dL 1.6-2.6 [facility] ID Date Data Source [id number] 07/16/2020 05:38:51 AM EDT [facility] Name Value Range Interpretation Code Description Data Laura rce(s) Supporting Document(s) Phosphate [Mass/volume] in Serum or Plasma 3.7 mg/dL 2.5-4.5 [facility] ID Date Data Source [id number] 07/15/2020 07:05:00 PM EDT [facility] Patient: ADDISON ZUÑIGA [facility] SystemVisitID: [id number] [place] [address] [phone], MRegistration Date/Time: 07/14/2020 15:57 Weight:90.7 kg (S). [...] Date Data Source [id number] 07/15/2020 08:37:45 AM EDT [facility] Name Value Range Interpretation Code Description Data Laura rce(s) Supporting Document(s) Ammonia [Moles/volume] in Plasma 77 umol/L 16-60 H [facility] ID Date Data Source [id number] 07/15/2020 06:42:39 AM EDT [facility] Name Value Range Interpretation Code Description Data Laura rce(s) Supporting Document(s) Progress Note [facility] [id number]LYW4cW1nRKV5UPoJMcMhVpLxTCPv lbm [file] [id number]= ID Date Data Source [id number] 07/15/2020 04:29:10 AM EDT [facility] Name Value Range Interpretation Code Description Data Laura rce(s) Supporting Document(s) Color of Urine [facility] Clarity of Urine [facility] Specific gravity of Urine by Refractometry automated 1.016 1.003 -1.030 [facility] pH of Urine by Automated test strip 5.0 5.0-8.0 [facility] Protein [Mass/volume] in Urine by Automated test strip Neg [facility] Glucose [Mass/volume] in Urine by Automated test strip Neg [facility] Ketones [Mass/volume] in Urine by Automated test strip Neg [facility] Bilirubin.total [Presence] in Urine by Automated test strip Negative [facility] Hemoglobin [Presence] in [facility]rine by [facility] test [facility] Leukocyte esterase [Presence] in Urine by Automated test strip Negative [facility] Nitrite [Presence] in Urine by Automated test strip Negati ve [facility] Leukocytes [#/area] in Urine sediment by Automated count 1 /HPF 0 -5 [facility] Erythrocytes [#/area] in Urine sediment by Automated count 0-3 [facility] Epithelial cells.squamous [#/area] in Urine sediment by Automate d count None [facility] Hyaline casts [#/area] in Urine sediment by Microscopy low p ower field 9 /LPF None [facility] ID Date Data Source [id number] 07/15/2020 03:50:00 AM EDT [facility] Name Value Range Interpretation Code Description Data Laura rce(s) Supporting Document(s) SARS-CoV-2 RNA 2019 nCoV Real-Time RT-PCR: NOT DETECTED [facility] This lab was ordered by [facility] and reported by [facility]. ID Date Data Source [id number] 07/15/2020 04:22:05 AM EDT [facility] Name Value Range Interpretation Code Description Data Laura rce(s) Supporting Document(s) Leukocytes [#/volume] in Blood by Automated count 5.0 10*3/uL 4-10 [facility] Erythrocytes [#/volume] in Blood by Automated count 3.06 10*6/uL 4.6- 6.1 L [facility] Hemoglobin [Mass/volume] in Blood 9.8 g/dL 13.5-18 L [facility] Hematocrit [Volume Fraction] of Blood by Automated count 28.7 % 4 1-53 L [facility] Erythrocyte mean corpuscular volume [Entitic volume] by Auto mated count 93.8 fL 80-96 [facility] Erythrocyte mean corpuscular hemoglobin [Entitic mass] by Automated count 32.0 pg 27-33 [facility] Erythrocyte mean corpuscular hemoglobin concentration [Mass/volume] by Automated count 34.2 g/dL 32.0-36.0 [facility] Erythrocyte distribution width [Ratio] by Automated count 15.6 % 11.5-14.5 H [facility] Platelets [#/volume] in Blood by Automated count 55 10*3/uL 150-400 L [facility] Differential cell count method - Blood [facility] Neutrophils/100 leukocytes in Blood by Automated count 66 % [facility] Lymphocytes/100 leukocytes in Blood by Automated count 13 % [facility] Monocytes/100 leukocytes in Blood by Automated count 15 % [facility] Eosinophils/100 leukocytes in Blood by Automated count 5 % [facility] Basophils/100 leukocytes in Blood by Automated count 1 % [facility] Neutrophils [#/volume] in Blood by Automated count 3.31 10*3/uL 1.8-7 .0 [facility] Lymphocytes [#/volume] in Blood by Automated count 0.66 10*3/uL 1.2-4 .0 L [facility] Monocytes [#/volume] in Blood by Automated count 0.76 10*3/uL 0-0.8 [facility] Eosinophils [#/volume] in Blood by Automated count 0.25 10*3/uL 0-0.5 [facility] Basophils [#/volume] in Blood by Automated count 0.06 10*3/uL 0-0.2 [facility] Nucleated erythrocytes/100 leukocytes [Ratio] in Blood by Automated count 0 /100{WBCs} 0-0 [facility] ID Date Data Source [id number] 07/15/2020 04:36:05 AM [facility] Value Range Interpretation Code Description Data Laura rce(s) Supporting Document(s) Prothrombin time (PT) 17.1 s 12.5-14.9 H [facility] INR in Platelet poor plasma by Coagulation assay 1.37 [facility] Routine intensity oral anticoagulation I NR is typically 2.0-3.0. Target INR must be clinically individualized. ID Date Data Source [id number] 07/15/2020 04:45:24 AM [facility] Value Range Interpretation Code Description Data Laura rce(s) Supporting Document(s) Albumin [Mass/volume] in Serum or Plasma by Bromocresol green (BCG) dye binding method 3.0 g/dL 3.5-5.2 L [facility] Bilirubin.total [Mass/volume] in Serum or Plasma 1.5 mg/dL <1.2 H [facility] Bilirubin.direct [Mass/volume] in Serum or Plasma 0.8 mg/dL <0.3 H [facility] Alkaline phosphatase [Enzymatic activity/volume] in Serum or Plasma 146 U/L 40-129 H [facility] Aspartate aminotransferase [Enzymatic activity/volume] in Serum or Plasma 27 U/L <40 [facility] Alanine aminotransferase [Enzymatic activity/volume] in Seru m or Plasma 17 U/L <41 [facility] Protein [Mass/volume] in Serum or Plasma 6.6 g/dL 6.4-8.3 [facility] ID Date Data Source [id number] 07/15/2020 04:45:24 AM [facility] Value Range Interpretation Code Description Data Laura rce(s) Supporting Document(s) Bicarbonate [Moles/volume] in Serum 23 mmol/L 22-29 [facility] Chloride [Moles/volume] in Serum or Plasma 102 mmol/L 98-107 [facility] Creatinine [Mass/volume] in Serum or Plasma 1.43 mg/dL 0.70-1.20 H [facility] Glucose [Mass/volume] in Serum or Plasma 143 mg/dL 70-140 H [facility] Potassium [Moles/volume] in Serum or Plasma 4.1 mmol/L 3.4-5.1 [facility] Sodium [Moles/volume] in Serum or Plasma 133 mmol/L 136-145 L [facility] Urea nitrogen [Mass/volume] in Serum or Plasma 29 mg/dL 6-20 H [facility] Anion gap 3 in Serum or Plasma 8 mmol/L 8-15 [facility] Osmolality of Serum or Plasma by calculation 284 mosm/kg 275-300 [facility] Creatinine/Urea nitrogen [Mass Ratio] in Serum or Plasma 20 [facility] Calcium [Mass/volume] in Serum or Plasma 8.7 mg/dL 8.6-10.0 [facility] Glomerular filtration rate/1.73 sq M pre dicted among non-blacks [Volume Rate/Area] in Serum or Plasma by Creatinine-based formula (MDRD) 52 mL/min/1.73m2 >60 L [facility] Glomerular filtration rate/1.73 sq M pre dicted among blacks [Volume Rate/Area] in Serum or Plasma by Creatinine-based formula (MDRD) 60 mL/min/1.73m2 >60 L [facility] ID Date Data Source [id number] 07/15/2020 06:25:42 AM EDT [facility] Name Value Range Interpretation Code Description Data Laura rce(s) Supporting Document(s) Magnesium [Mass/volume] in Serum or Plasma 1.9 mg/dL 1.6-2.6 [facility] ID Date Data Source [id number] 07/15/2020 06:25:42 AM EDT [facility] Value Range Interpretation Code Description Data Laura rce(s) Supporting Document(s) Phosphate [Mass/volume] in Serum or Plasma 4.0 mg/dL 2.5-4.5 [facility] ID Date Data Source [id number] 07/15/2020 07:49:04 AM EDT [facility] Value Range Interpretation Code Description Data Laura rce(s) Supporting Document(s) aPTT in Platelet poor plasma by Coagulation assay 30.1 s 24.0-33. 0 [facility] ID Date Data Source [id number] 07/15/2020 05:12:05 AM T [facility] Value Range Interpretation Code Description Data Laura rce(s) Supporting Document(s) Specimen source [Identifier] of Unspecified specimen [facility] SARS-CoV-2 RNA 2019 nCoV Real-Time RT-PCR: NOT DETECTED [facility] Assay Performed [facility] Patients first test for [facility] Patient employed in healthcare setting [facility] Patient has symptoms related to [facility] When did you start to experience these symptoms [Date and time] [Phen X] [facility] Patient was hospitalized because of this condition [facility] patient was admitted to ICU for [facility] Patient resides in a congregate care setting [facility] status [facility] ID Date Data Source [id number] 07/15/2020 05:11:17 AM EDT [facility] Service Cmnt XXX-Imp : NoneRespiratory P CR Panel : PCR ResultsMicroorganism XXX Cult : See Labs Tab for 2019 nCoV RT-PCR resultsHAdV DNA QI BRYCE+non-probe : Not DetectedHCoV [id number] Nph QI BRYCE+non-probe : Not DetectedHCoV [id number] Nph QI BRYCE+non-probe : Not [id number] RNA Nph QI BRYCE+non-probe : Not [id number] RNA Upper resp QI BRYCE+probe : Not [...] DNA Nph Q BRYCE+non-probe : Not DetectedB [id number] DNA Nph BRYCE+non-probe : Not Detected Name Value Range Interpretation Code Description Data Laura rce(s) Supporting Document(s) ID Date Data Source [id number] 07/17/2020 04:31:00 PM EDT [facility] CYTOPATHOLOGY REPORTName: ADDISON ZUÑIGAMRN: [id number] Number: [id number] Date: 07/15/2020 00:00Received Date: 07/16/2020 12:19Physician(s): BAUDILIO LOPEZ MD CREAMER, TIMOTHY M, MD Copy To:ROME HERNANDEZ MDGOODMAN, ALEXANDRA, MDSpecimen(s) ReceivedA: ASCITIC FLUIDClinical History:Ascites. See [id number] FLUID: NO EVIDENCE OF MALIGNANCYComment/ld/calReviewing Cytotech: ANANYA Burroughs (ASCP)Electronically Signed By Lakshmi Galloway M.D. 07/17/2020 16:31:36Microscopic DescriptionThe specimen is composed of benign reactive mesothelial cells andmacrophages./ldGross Sowrozhdrhh612 ml clear yellow fluid received. Specimen processed bycytocentrifugation: 1 cytospin slide prepared for Pap stain and 1 cytospinslide prepared for Diff Quik stain. This report may include one or more immunohistochemical stain results thatuse analyte specific reagents. All positive and negative controls havebeen reviewed by the attending pathologist and are satisfactory. The testswere developed and their performance characteristics determined by [facility] Patholol[facility]. They have not been cleared or approved by [place] Food and Drug Administration. The FDA has determined that suchclearance or approval is not necessary. Name Value Range Interpretation Code Description Data Laura rce(s) Supporting Document(s) ID Date Data Source [id number] 07/14/2020 08:00:00 PM EDT [facility] Name Value Range Interpretation Code Description Data Laura rce(s) Supporting Document(s) COVID-19 NEGATIVE [facility] This lab was ordered by [facility] and reported by [facility]. ID Date Data Source [id number] 07/14/2020 08:18:00 PM EDT [facility] [id number] Name Value Range Interpretation Code Description Data Laura rce(s) Supporting Document(s) COVID-19 NEGATIVE NEGATIVE [facility] Negative results should be treated as pr [...] are for the indentification of SARS-CoV-2 RNA. RnrJIVI-JjE-9 RNA is generally detectable in respiratorysamples during the actue phase of infection. ID Date Data Source [id number] 07/14/2020 06:42:00 PM EDT [facility] DATE OF EXAMINATION: 07/14/2020 17:56 EDT [...] rce(s) Supporting Document(s) ID Date Data Source [id number] 07/14/2020 06:19:00 PM EDT [facility] [id number] Name Value Range Interpretation Code Description Data Laura rce(s) Supporting Document(s) URINE RBC 1-3 /hpf 0-3 [facility] URINE WBC 1-3 /hpf 0-5 [facility] URINE EPITHELIAL CELLS 1+ /hpf 0 [facility] URINE BACTERIA 1+ NONE SEEN H [facility] URINE HYALINE CAST 3-6 /LPF 0 [facility] ID Date Data Source [id number] 07/14/2020 06:12:00 PM EDT [facility] [id number] Name Value Range Interpretation Code Description Data Laura rce(s) Supporting Document(s) URINE COLOR. YELLOW [facility] URINE APPEARANCE CLEAR [facility] URINE GLUCOSE (UA) NEGATIVE mg/dL NEGATIVE [facility] URINE BILIRUBIN NEGATIVE NEGATIVE [facility] URINE KETONE NEGATIVE mg/dL NEGATIVE [facility] SPECIFIC GRAV[facility],URINE 1.020 1.005-1.030 [facility] URINE BLOOD TRACE NEGATIVE H [facility] PH,URINE 5.5 5.0-9.0 [facility] URINE PROTEIN NEGATIVE mg/dL NEGATIVE [facility] URINE UROBILINOGEN 0.2 mg/dL 0-1 [facility] URINE NITRATE NEGATIVE NEGATIVE [facility] URINE LEUKOCYTE ESTERASE NEGATIVE NEGATIVE [facility] ID Date Data Source [id number] 07/14/2020 06:11:00 PM EDT [facility] TSYSORDER [id number] Name Value Range Interpretation Code Description Data Laura rce(s) Supporting Document(s) MAGNESIUM 1.9 mg/dL 1.8-2.4 [facility] ID Date Data Source [id number] 07/14/2020 06:11:00 PM EDT [facility] TSYSORDER [id number] Name Value Range Interpretation Code Description Data Laura rce(s) Supporting Document(s) LIPASE 151 U/L 73-393 [facility] ID Date Data Source [id number] 07/14/2020 06:11:00 PM T [facility] TSYSORDER [id number] Name Value Range Interpretation Code Description Data Laura rce(s) Supporting Document(s) GLUCOSE 144 mg/dL 74-106 H [facility] BLOOD UREA NITROGEN 29 mg/dL 7-18 H [facility] CREATININE 1.67 mg/dL 0.7-1.3 H [facility] SODIUM 136 mmol/L 136-145 [facility] POTASSIUM 4.4 mmol/L 3.5-5.1 [facility] CHLORIDE 102 mmol/L 98-107 [facility] CO2 25 mmol/L 21-32 [facility] CALCIUM 8.7 mg/dL 8.5-10.1 [facility] ANION GAP 9.0 mmol/L 5-12 [facility] GLOMERULAR FILTRATION RATE 42 mL/min [facility] GFR IS CALCULATED IN mL/min/1.73m2 HEIDE L FUNCTION: >90MILDLY DECREASED: 60-89MILDY TO MODERATELY DECREASED: 45-59 MODERATELY TO SEVERELY DECREASED: 30-44SEVERELY DECREASED: 15-29RENAL FAILURE: <15 AST 31 U/L 15-37 [facility] ALT 30 U/L 12-78 [facility] ALKALINE PHOSPHATASE 185 U/L 46-116 H [facility] pital TOTAL BILIRUBIN 1.3 mg/dL 0.2-1.0 H [facility] TOTAL PROTEIN 7.1 g/dl 6.4-8.2 [facility] ALBUMIN 2.8 gm/dL 3.4-5.0 L [facility] ID Date Data Source [id number] 07/14/2020 06:09:00 PM T [facility] TSYSORDER [id number] Name Value Range Interpretation Code Description Data Laura rce(s) Supporting Document(s) PARTIAL THROMBOPLASTIN TIME 24.6 SECONDS 21.2-27.3 [facility] ID Date Data Source [id number] 07/14/2020 06:09:00 PM [facility] TSYSORDER [id number] Name Value Range Interpretation Code Description Data Laura rce(s) Supporting Document(s) PROTHROMBIN TIME (PATIENT) 11.7 SECONDS 9.1-11.6 H [facility] INR 1.13 0.87-1.06 H [facility] ID Date Data Source [id number] 07/14/2020 05:57:00 PM [facility] TSYSORDER [id number] Name Value Range Interpretation Code Description Data Laura rce(s) Supporting Document(s) WHITE BLOOD COUNT 6.7 K/mm3 4.0-10.0 [facility] al RED BLOOD COUNT 2.94 M/mm3 4.50-6.00 L [facility] HEMOGLOBIN 9.5 gm/dL 14.0-18.0 [facility] HEMATOCRIT 27.1 % 42.0-54.0 L [facility] MEAN CELL VOLUME 92.2 fl 80-96 [facility] MEAN CORPUSCULAR HEMOGLOBIN 32.3 pg 27.0-31.0 H [facility] MEAN CORPUSCULAR HGB CONC 35.1 g/dl 32.0-36.0 [facility] RED CELL DISTRIBUTION WIDTH 14.7 % 10.0-14.5 H [facility] PLATELET COUNT 61 K/mm3 172-450 L [facility] MEAN PLATELET VOLUME 9.8 fl 9.0-13.0 [facility] pital GRAN % 71.8 % 50-80.0 [facility] IG% 0.4 % 0.0-0.2 H [facility] LYMPH % 10.1 % 25.0-50.0 L [facility] MONO % 13.3 % 2.0-10.0 H [facility] EOS % 3.7 % 0-5.0 [facility] BASO % 0.7 % 0.0-2.0 [facility] GRAN # 4.8 K/mm3 2.0-8.00 [facility] IG# 0.0 K/mm3 0.0-0.2 [facility] LYMPH # 0.7 K/mm3 1.0-5.0 L [facility] MONO # 0.9 K/mm3 0.10-1.20 [facility] EOS # 0.3 K/mm3 0.0-0.5 [facility] BASO # 0.1 K/mm3 0.0-0.2 [facility] ID Date Data Source [id number] 07/13/2020 03:17:05 PM EDT [facility] XR THORACIC SPINE AP AND LATERALFINAL [...] rce(s) Supporting Document(s) ID Date Data Source [id number] 07/13/2020 01:40:05 PM EDT [facility] Name Value Range Interpretation Code Description Data Laura rce(s) Supporting Document(s) Progress Note [facility] WKAFWf7fGrPWOqVs84/NVNxdGXPuj9UxHMprIHv9AFxgPYSnF2EiHHL7wP9dDPK0SPhVWqJbLdQfUMAg lbm [file] [id number]= ID Date Data Source [id number] 07/05/2020 12:00:00 AM EDT [facility] Name Value Range Interpretation Code Description Data Laura rce(s) Supporting Document(s) SARS coronavirus 2 RNA Negative [facility] This lab was ordered by [facility] and reported by [facility] [place]. ID Date Data Source [id number] 07/06/2020 08:39:00 AM EDT [facility] FASTING: UNKNOWNReceived: 07/06/2020 at 04:37:00 QPT: [facility], [address], [address] [place], [address], Ryan Brown MD Name Value Range Interpretation Code Description Data Laura rce(s) Supporting Document(s) Sarcoptes scabiei identified in Skin by Light microscopy Mosaic SCABIES EXAMINATION Micro Number: [id number] Test Status: Final Specimen Source: [id number] Specimen Quality: Adequate Result: No Sarcoptes scabei seen ID Date Data Source [id number] 07/04/2020 02:24:58 PM EDT [facility] IR IMAGE GUIDED NEEDLE DRAIN PROCEDUREFI [...] rce(s) Supporting Document(s) ID Date Data Source [id number] 06/29/2020 12:00:00 AM EDT [facility] Name Value Range Interpretation Code Description Data Laura rce(s) Supporting Document(s) SARS coronavirus 2 RNA Negative [facility] This lab was ordered by [facility] and reported by [facility]. ID Date Data Source [id number] 06/27/2020 12:00:00 AM EDT [facility] Name Value Range Interpretation Code Description Data Laura rce(s) Supporting Document(s) SARS coronavirus 2 RNA Negative [facility] This lab was ordered by [facility] and reported by [facility]. ID Date Data Source [id number] 06/20/2020 04:42:49 PM EDT [facility] Name Value Range Interpretation Code Description Data Laura rce(s) Supporting Document(s) Discharge Summary [facility] XLJZHs0hIfMMNsOa12/GYYhiCNLdd3WfDXbhHBf8VDapRIQuQ5MsKDO7tC2gKMH8TRtKFyMxLdIcUSV7 lbm [file] ICAgICAgICAgICAgICAgICAgICAgICAgICAgICAgICAgICAgICAgICAgICAgICAgICAgICAgICAgICAg ICAgICAgICAgICAgICAgICAgICAgICAgICAgICANCiAgICAgICAgICAgICAgICAgICAgICAgICAgICAg ICAgICAgICAgICAgICAgICAgICAgICAgICAgICAgIC AgICAgICAgICAgICAgICAgICAgICAgICAgICAgICAgICAgICAgICANCiAgICAgICAgICAgICAgICAgIC AgICAgICAgICAgICAgICAgICAgICAgICAgICAgICAgICAgICAgICAgICAgICAgICAgICAgICAgICAgIC AgICAgICAgICAgICAgICAgICAgICANCiAgICAgICAg ICAgICAgICAgICAgICAgICAgICAgICAgICAgICAgICAgICAgICAgICAgICAgICAgICAgICAgICAgICAg ICAgICAgICAgICAgICAgICAgICAgICAgICAgICAgICANCiAgICAgICAgICAgICAgICAgICAgICAgICAg ICAgICAgICAgICAgICAgICAgICAgICAgICAgICAgIC AgICAgICAgICAgICAgICAgICAgICAgICAgICAgICAgICAgICAgICAgICANCiAgICAgICAgICAgICAgIC AgICAgICAgICAgICAgICAgICAgICAgICAgICAgICAgICAgICAgICAgICAgICAgICAgICAgICAgICAgIC AgICAgICAgICAgICAgICAgICAgICAgICANCiAgICAg ICAgICAgICAgICAgICAgICAgICAgICAgICAgICAgICAgICAgICAgICAgICAgICAgICAgICAgICAgICAg ICAgICAgICAgICAgICAgICAgICAgICAgICAgICAgICAgICANCiAgICAgICAgICAgICAgICAgICAgICAg ICAgICAgICAgICAgICAgICAgICAgICAgICAgICAgIC AgICAgICAgICAgICAgICAgICAgICAgICAgICAgICAgICAgICAgICAgICAgICANCiAgICAgICAgICAgIC AgICAgICAgICAgICAgICAgICAgICAgICAgICAgICAgICAgICAgICAgICAgICAgICAgICAgICAgICAgIC AgICAgICAgICAgICAgICAgICAgICAgICAgICANCiAg ICAgICAgICAgICAgICAgICAgICAgICAgICAgICAgICAgICAgICAgICAgICAgICAgICAgICAgICAgICAg ICAgICAgICAgICAgICAgICAgICAgICAgICAgICAgICAgICAgICANCjw/sJIzA4oxoQWkbjS7U8itIo6H We0SNN2qo7EwQVBkNKnzvhAzFyhPZbHxPCFcWssRUm f0FLloWQ1SjTAbY8WpN3HrGSdoHA6AIHTsVMSbiHZqKWUaYAPtKjU2HPZdFRnsXR4RgGWfKNrlUNZlYJ DdPeMbPAGkQFOjMBUySFVuGDLZKHTjYEOqWrXlYYYnXCQsRDziBEOXHT2OMoKfK3WvxQ05THoJBc6+DQ acmbJxXtaCGkHkZDDsh0BzGHx7OX5CRAJaElynf4Sj LTFoLQMSHWqdBV2UGPC7ICAeHAGkNg7QNQZtX236yjDmQN3FQp4JOfYvVK4fzw2DMMQuHFOoLfeQTmu7 WJmlJW7LaWYqPJzTuHVatRTpX8VgB7PnoXQxwWQrvKHUPPQirjGOJB0bP4XiDF0iLO0ULTI8YIPaRhae GzQeKRGnGQpfRMYYIOpRMkDyY2Jhg8OsRvC2MHTdAs EaGYpcWARvQpS0VO59dBroCE6OFGKgIVWkMJ81JTWxCOOqPq2DYg3QFrZpCH4sfl0JBDHwZSNzLwcSUc z8RQrfNR4CxGVrF8LtkESag4hRNwGcG2QLSJY8KBZrPa8TCATlPpSxKNYsUOoxCC8hWUSuAJKEmPmtpx E7EC4WFQ7iqkKkVZ0HQtNfCl7dEn0FJmTpC0WtX8Gq QKThQXNQHWrqLE9RYOwsLW6aYS6Nj3NYfPDpqF2bfl1KCQNjZCNzFejtri2OHngnM8O8oXwwLYDtGFCw YGBQSGldZT3SUKUuHZF3DSNbJOEzIUCOLmBqA02hPW3JI7Uup98nUrT6QAYyXhDnYRktZU13fFtkzoSz zHFblWnnAA2CGu3+DQplbmRvYmoNCnhyZWYNCjAgND ZWOqVwMSYaWPXbBDXgJmH6GbAcLf5ADORxGEDrZNNsMzViDNFgPLLvXExyZKDoFNT3NeW1EIFwPOMtLC 9SZdQnIXAgUnr3EXYqQBXiVOQjww8GCKLhPPEzHKQ1ZgSpRWTkBDDmBDgsRQBsQWKkPwG1ILUzUTVkGD 3SPlHyWVXoOTD1IlYbGEDlUCTeqe9BCSWnNVMwTpI6 YmHgLBYpQJSqHLfoODOwOMF0GxjaQZKaWUEkLY9FNfOgDCHjRZN7ZBArCNAiFAVlkx6HJJYxGAWcVdJo NYPgAKTtDTUhRNlpIHZvMVN3HWYfOTWmCPPfAT5MKbCpAVZcLHEjLUpiUYZjZBVtrz0BGTKfLDIqETEb GWGqBFJgEJIiTTcnZVMzBSU4IxZ2RAJtRZCuIT9RDd WcMELdViT3XRoqTTGrWPAnmc8QCHEwVYCoMNGwSYYzWXMzAGFzBQwjGXAeZYFeQCJoTBGyKYWpZL8PSp RiZGXbPyPdSIzdVTYaAFFocu7KZTPaPPPhCPQ3PATjQNFaZLLkQZnaBRNjKMG0Fld6CVBaJJCuTJ7YVk EqDCTfUgV6HBsgSLSiVBLndg1JBBPdGNSpXCCuCySn XWVyTIAqSPjnLBFuWVL8IvM5ASPoPKZmKD3OCoBeRPEiTbK7BAdzZQXhWMPjts1WDABaVXYjAmc1OgKg ESUbPUPzUUvlRXRjSPB1DPM0LGViLJKsHY1LNnQpRHSjYkbmIQNrSFMvNNYvuy0EDWEjEJDvWXLiEbZs FRYeSNSySCqqUEJeXZO0LuUpSNViEVTlNH8RDfYqMG DkBwq9VIOcQMWwPDAdxc7WSOFeJDVrEBV6HtQjZSObUZUrNKsiFNDjLYO6DwImJCPzTORnFK5VZzKsAZ RmIvq3RCMuCITwYEQvxc7WVBMvVWEzUVpnVdEiJFFyTJLoWUtqGPHuQBX7KRIzNADhLIFjHN5WBrNeTV LuTkAcAmPcPUGiUNTurd4SIQHgCSPpIHA2RRWrFFGc OCDlBAiyQEUdMLE7HmJyVHYpZFDkPE0LWrSjDQHmCmCbZxEqZEStHURlhf0XETLeDJEqCeZ7GXTtBFTo BHEmTEnfLWXxAFL7HxUbHCYuITVeCK1SYzHeGEFcYnn0AuHcYTTnPWYinv4UtRWetCmaso4FYVfMEm7Y tAhkINXjXTewGe4qqOB8AjWcMKUJDm1QrnCxDDRsQO LTBAxxCJIkLIN7XvAgOCZmUPYtPgi3ZXccDgPlZnC3UUN2Q9DnEaIrAnU0EGIyKiL1RjVrFTOjBARoP6 U9OnCcFiqgIRG4ZDDeCEG+TA5xEHw+Wi7Rp1OaosY5suQpHHadRPVlYy8TZJSVG7XHIo== ID Date Data Source [id number] 06/19/2020 10:27:56 AM EDT [facility] Name Value Range Interpretation Code Description Data Laura rce(s) Supporting Document(s) Consultation [facility] IOEFQx7nCvPSPoMv83/EBQwqJZBlj8NcBBggEYa3QAssXEBhZ2KaRRB5yB8fRZL3WHiLCfOfZcYmVPQ1 lbm [file] AgICAgICAgICAgICAgICAgICAgICAgICAgICAgICAgICAgICAgICAgICAgICAgICAgICAgICAgICAgIC AgICAgICAgICAgICAgICAgICAgICAgICAgICAgICAgICAgICAgICANCiAgICAgICAgICAgICAgICAgIC AgICAgICAgICAgICAgICAgICAgICAgICAgICAgICAg ICAgICAgICAgICAgICAgICAgICAgICAgICAgICAgICAgICAgICAgICAgICAgICAgICANCiAgICAgICAg ICAgICAgICAgICAgICAgICAgICAgICAgICAgICAgICAgICAgICAgICAgICAgICAgICAgICAgICAgICAg ICAgICAgICAgICAgICAgICAgICAgICAgICAgICAgIC ANCiAgICAgICAgICAgICAgICAgICAgICAgICAgICAgICAgICAgICAgICAgICAgICAgICAgICAgICAgIC AgICAgICAgICAgICAgICAgICAgICAgICAgICAgICAgICAgICAgICAgICANCiAgICAgICAgICAgICAgIC AgICAgICAgICAgICAgICAgICAgICAgICAgICAgICAg ICAgICAgICAgICAgICAgICAgICAgICAgICAgICAgICAgICAgICAgICAgICAgICAgICAgICANCiAgICAg ICAgICAgICAgICAgICAgICAgICAgICAgICAgICAgICAgICAgICAgICAgICAgICAgICAgICAgICAgICAg ICAgICAgICAgICAgICAgICAgICAgICAgICAgICAgIC AgICANCiAgICAgICAgICAgICAgICAgICAgICAgICAgICAgICAgICAgICAgICAgICAgICAgICAgICAgIC AgICAgICAgICAgICAgICAgICAgICAgICAgICAgICAgICAgICAgICAgICAgICANCiAgICAgICAgICAgIC AgICAgICAgICAgICAgICAgICAgICAgICAgICAgICAg ICAgICAgICAgICAgICAgICAgICAgICAgICAgICAgICAgICAgICAgICAgICAgICAgICAgICAgICANCiAg ICAgICAgICAgICAgICAgICAgICAgICAgICAgICAgICAgICAgICAgICAgICAgICAgICAgICAgICAgICAg ICAgICAgICAgICAgICAgICAgICAgICAgICAgICAgIC AgICAgICANCiAgICAgICAgICAgICAgICAgICAgICAgICAgICAgICAgICAgICAgICAgICAgICAgICAgIC AgICAgICAgICAgICAgICAgICAgICAgICAgICAgICAgICAgICAgICAgICAgICAgICANCjw/cODxQ5wjmQ ClbpL8X5uzUf5HQf3DUM2jz9EbVCGpGRyalfGwVdhB CoDaNTFsBeuYLfg0SRbmFP8QbXJqS3XlG1XsXVmnWQ3NGATqXCAygSMnIQGjSOGhLeJ5HWHrTOvuRH8F hYNiABnxYDIeFMVzSW5DQLXdV830lzUlYX7LQg5JUwJbUQ1rsv0DJJVmSRAhFrxQXzc2SDjlWF8EnBTv aQYqMSBbUMNTVcPdG0kun7DxWVGoQFAEWHsnAE9Zg9 VudCAxDQo+Hd8ZPG6pf3EfFGcnYLKvKI6vej5ORRfWCpXaJ0HsbUiwBPTvgfA3sYYeXPD4VPCwfzfnDJ foRVLfdEirVEDXGNZfhQJ8UbD1CuNgUzHhEUV9FwxgIP3cKVhoOU0JSWY5VBulGVKfVZTyE0xNScBcAM YiDxFudFscHX3DTxIoU9AjuwQvbBDuPXFiPDVQPq1+ EEjelnBhSrcBVoH4DGUhh9SxQMb1QV6NZJNjOJqgSE1SCKWqeL2xAGbqCA3RTvHjHbNtWSCFJzZnY43u mEEsCVb8T3GcKaUxEHJqYgcjIESfEGqdTeBcYHIoJpKcISvrJN5+ID4+CUjfST5MSSjsmqWvRKJsLa4O FGMfZSGcMG2kTYLpRMDqO8O5xYeaRQPBByGoU9kokw jgCM5jWRMkS813vEkavbYcHSC5FJOaLg8OVBCxJWE0ATZhbBSvNEFkPIVWPHcdUT4VhBFoLJU1oH5cDE olFIVkBRBlZ0wJBeXfkMadZO16jYkurnHuaXAaFDc+Vc2OMB4bo5UjSMm9szPtMLwjCHJ8WAynCNWiPT ZkGVFrZHJ1MHK5VMTLQbYgUNIqCSSjCFttQLYwSNLi gx8GBJSxMIXfLKV5WWMrDCXbMWLgMJydTAXmWCF4NvO7TXLcDMWwAZ4MFnLsVCKgNVGoLLhwSIXfBPGb hv5CAMHsHIVbXQumXEYgXWOoQHXmWUfjCEPjDJWkRMB8JVQeHRIxST5ETsUqQHTxYXK0CDhePEEbIQUj on6ZXMIcAPVnUpH9TaJiIPIjAQPyZUvuRBHxRRMpBp vaOBPkSXRbLK3TTkZyQIRpNXImGxMlPQHdPWYsyh9TBCVjZGBsDFGhDpCfUKIlQOLrELomRQVeSBD6Fy IpQUNfADJeLG3CAqZbWZBxSNZfRxKqTBHlDHUgfn8EGJCwXDUnDhR0VvYmJPMbPAErJSblTUGyNQU4EY FdINPdMYVbJJ6JKiKwAPRkAEY5NwBcRUYgJZPimo9R lULpdGtvyt9DTZcPBv4HbBacPSZ1VZegSd5fkFXjCnHfXQZHPp7UtoRmNJSaIAXSJUgmHCNvKIC4CCYh XxZuQ2QoIbe3XqOpAGiyJhC1SJA7UiJgMGX6UcZ0YqekOoVxYxXnDCWhLcW9TtZ0OhH2YUGfOyTgDUEc ZDY+FQ4wDMo+Wf2Sk9UfhtH0vbDaGJq5REOjUZzfYDURSm1S ID Date Data Source [id number] 06/19/2020 05:23:06 AM EDT [facility] Name Value Range Interpretation Code Description Data Laura rce(s) Supporting Document(s) Leukocytes [#/volume] in Blood by Automated count 7.2 10*3/uL 4-10 [facility] Erythrocytes [#/volume] in Blood by Automated count 2.45 10*6/uL 4.6- 6.1 L [facility] Hemoglobin [Mass/volume] in Blood 8.1 g/dL 13.5-18 L [facility] Hematocrit [Volume Fraction] of Blood by Automated count 24.7 % 4 1-53 L [facility] Erythrocyte mean corpuscular volume [Entitic volume] b y Automated count 100.6 fL 80-96 H [facility] Erythrocyte mean corpuscular hemoglobin [Entitic mass] by Automated count 33.2 pg 27-33 H [facility] Erythrocyte mean corpuscular hemoglobin concentration [Mass/volume] by Automated count 33.0 g/dL 32.0-36.0 [facility] Erythrocyte distribution width [Ratio] by Automated count 16.3 % 11.5-14.5 H [facility] Platelets [#/volume] in Blood by Automated count 58 10*3/uL 150-400 L [facility] Differential cell count method - Blood [facility] Neutrophils/100 leukocytes in Blood by Automated count 71 % [facility] Lymphocytes/100 leukocytes in Blood by Automated count 9 % [facility] Monocytes/100 leukocytes in Blood by Automated count 18 % [facility] Eosinophils/100 leukocytes in Blood by Automated count 1 % [facility] Basophils/100 leukocytes in Blood by Automated count 1 % [facility] Neutrophils [#/volume] in Blood by Automated count 5.19 10*3/uL 1.8-7 .0 [facility] Lymphocytes [#/volume] in Blood by Automated count 0.62 10*3/uL 1.2-4 .0 L [facility] Monocytes [#/volume] in Blood by Automated count 1.27 10*3/uL 0-0.8 H [facility] Eosinophils [#/volume] in Blood by Automated count 0.09 10*3/uL 0-0.5 [facility] Basophils [#/volume] in Blood by Automated count 0.07 10*3/uL 0-0.2 [facility] Nucleated erythrocytes/100 leukocytes [Ratio] in Blood by Automated count 0 /100{WBCs} 0-0 [facility] ID Date Data Source [id number] 06/19/2020 05:31:50 AM EDT [facility] Name Value Range Interpretation Code Description Data Laura rce(s) Supporting Document(s) Bicarbonate [Moles/volume] in Serum 26 mmol/L 22-29 [facility] Chloride [Moles/volume] in Serum or Plasma 95 mmol/L 98-107 L [facility] Creatinine [Mass/volume] in Serum or Plasma 1.12 mg/dL 0.70-1.20 [facility] Glucose [Mass/volume] in Serum or Plasma 161 mg/dL 70-140 H [facility] Potassium [Moles/volume] in Serum or Plasma 4.2 mmol/L 3.4-5.1 [facility] Sodium [Moles/volume] in Serum or Plasma 128 mmol/L 136-145 L [facility] Urea nitrogen [Mass/volume] in Serum or Plasma 23 mg/dL 6-20 H [facility] Anion gap 3 in Serum or Plasma 7 mmol/L 8-15 L [facility] Osmolality of Serum or Plasma by calculation 273 mosm/kg 275-300 L [facility] Creatinine/Urea nitrogen [Mass Ratio] in Serum or Plasma 21 [facility] Calcium [Mass/volume] in Serum or Plasma 9.2 mg/dL 8.6-10.0 [facility] Glomerular filtration rate/1.73 sq M pre dicted among non-blacks [Volume Rate/Area] in Serum or Plasma by Creatinine-based formula (MDRD) 70 mL/min/1.73m2 >60 [facility] Glomerular filtration rate/1.73 sq M pre dicted among blacks [Volume Rate/Area] in Serum or Plasma by Creatinine-based formula (MDRD) 81 mL/min/1.73m2 >60 [facility] ID Date Data Source [id number] 06/18/2020 08:05:13 PM [facility] Name Value Range Interpretation Code Description Data Laura rce(s) Supporting Document(s) Prothrombin time (PT) 18.4 s 12.5-14.9 H [facility] INR in Platelet poor plasma by Coagulation assay 1.51 [facility] Routine intensity oral anticoagulation I NR is typically 2.0-3.0. Target INR must be clinically individualized. ID Date Data Source [id number] 06/18/2020 08:46:55 AM [facility] Value Range Interpretation Code Description Data Laura rce(s) Supporting Document(s) Leukocytes [#/volume] in Blood by Automated count 7.4 10*3/uL 4-10 [facility] Erythrocytes [#/volume] in Blood by Automated count 2.64 10*6/uL 4.6- 6.1 L [facility] Hemoglobin [Mass/volume] in Blood 8.9 g/dL 13.5-18 L [facility] Hematocrit [Volume Fraction] of Blood by Automated count 26.8 % 4 1-53 L [facility] Erythrocyte mean corpuscular volume [Entitic volume] b y Automated count 101.6 fL 80-96 H [facility] Erythrocyte mean corpuscular hemoglobin [Entitic mass] by Automated count 33.7 pg 27-33 H [facility] Erythrocyte mean corpuscular hemoglobin concentration [Mass/volume] by Automated count 33.1 g/dL 32.0-36.0 [facility] Erythrocyte distribution width [Ratio] by Automated count 16.4 % 11.5-14.5 H [facility] Platelets [#/volume] in Blood by Automated count 60 10*3/uL 150-400 L [facility] Differential cell count method - Blood [facility] Neutrophils/100 leukocytes in Blood by Automated count 71 % [facility] Lymphocytes/100 leukocytes in Blood by Automated count 8 % [facility] Monocytes/100 leukocytes in Blood by Automated count 18 % [facility] Eosinophils/100 leukocytes in Blood by Automated count 2 % [facility] Basophils/100 leukocytes in Blood by Automated count 1 % [facility] Neutrophils [#/volume] in Blood by Automated count 5.25 10*3/uL 1.8-7 .0 [facility] Lymphocytes [#/volume] in Blood by Automated count 0.56 10*3/uL 1.2-4 .0 L [facility] Monocytes [#/volume] in Blood by Automated count 1.36 10*3/uL 0-0.8 H [facility] Eosinophils [#/volume] in Blood by Automated count 0.14 10*3/uL 0-0.5 [facility] Basophils [#/volume] in Blood by Automated count 0.08 10*3/uL 0-0.2 [facility] Nucleated erythrocytes/100 leukocytes [Ratio] in Blood by Automated count 0 /100{WBCs} 0-0 [facility] ID Date Data Source [id number] 06/18/2020 09:19:18 AM EDT [facility] Name Value Range Interpretation Code Description Data Laura rce(s) Supporting Document(s) Albumin [Mass/volume] in Serum or Plasma by Bromocresol green (BCG) dye binding method 2.8 g/dL 3.5-5.2 L [facility] Bilirubin.total [Mass/volume] in Serum or Plasma 2.7 mg/dL <1.2 H [facility] Calcium [Mass/volume] in Serum or Plasma 9.0 mg/dL 8.6-10.0 [facility] Chloride [Moles/volume] in Serum or Plasma 95 mmol/L 98-107 L [facility] Creatinine [Mass/volume] in Serum or Plasma 1.14 mg/dL 0.70-1.20 [facility] Glucose [Mass/volume] in Serum or Plasma 150 mg/dL 70-140 H [facility] Alkaline phosphatase [Enzymatic activity/volume] in Serum or Plasma 171 U/L 40-129 H [facility] Potassium [Moles/volume] in Serum or Plasma 4.2 mmol/L 3.4-5.1 [facility] Protein [Mass/volume] in Serum or Plasma 6.5 g/dL 6.4-8.3 [facility] Sodium [Moles/volume] in Serum or Plasma 125 mmol/L 136-145 L [facility] Aspartate aminotransferase [Enzymatic activity/volume] in Serum or Plasma 37 U/L <40 [facility] Urea nitrogen [Mass/volume] in Serum or Plasma 22 mg/dL 6-20 H [facility] Osmolality of Serum or Plasma by calculation 266 mosm/kg 275-300 L [facility] Creatinine/Urea nitrogen [Mass Ratio] in Serum or Plasma 19 [facility] Bicarbonate [Moles/volume] in Serum 24 mmol/L 22-29 [facility] Alanine aminotransferase [Enzymatic activity/volume] in Seru m or Plasma 22 U/L <41 [facility] Anion gap 3 in Serum or Plasma 6 mmol/L 8-15 L [facility] Glomerular filtration rate/1.73 sq M pre dicted among non-blacks [Volume Rate/Area] in Serum or Plasma by Creatinine-based formula (MDRD) 69 mL/min/1.73m2 >60 [facility] Glomerular filtration rate/1.73 sq M pre dicted among blacks [Volume Rate/Area] in Serum or Plasma by Creatinine-based formula (MDRD) 80 mL/min/1.73m2 >60 [facility] ID Date Data Source [id number] 06/18/2020 06:34:13 AM EDT [facility] Name Value Range Interpretation Code Description Data Laura rce(s) Supporting Document(s) Specimen source [Identifier] of Unspecified specimen [facility] SARS-CoV-2 RNA 2019 nCoV Real-Time RT-PCR: NOT DETECTED [facility] Assay Performed [facility] Patients first test for [facility] Patient employed in healthcare setting [facility] Patient has symptoms related to [facility] When did you start to experience these symptoms [Date and time] [Phen X] [facility] Patient was hospitalized because of this condition [facility] patient was admitted to ICU for [facility] Patient resides in a congregate care setting [facility] status [facility] ID Date Data Source [id number] 06/17/2020 12:25:00 PM EDT [facility] Name Value Range Interpretation Code Description Data Laura rce(s) Supporting Document(s) SARS-CoV-2 RNA 2019 nCoV Real-Time RT-PCR: NOT DETECTED [facility] This lab was ordered by [facility] and reported by [facility] ID Date Data Source [id number] 06/17/2020 04:03:56 AM EDT [facility] Name Value Range Interpretation Code Description Data Laura rce(s) Supporting Document(s) Leukocytes [#/volume] in Blood by Automated count 7.2 10*3/uL 4-10 [facility] Erythrocytes [#/volume] in Blood by Automated count 2.47 10*6/uL 4.6- 6.1 L [facility] Hemoglobin [Mass/volume] in Blood 8.3 g/dL 13.5-18 L [facility] Hematocrit [Volume Fraction] of Blood by Automated count 25.2 % 4 1-53 L [facility] Erythrocyte mean corpuscular volume [Entitic volume] b y Automated count 101.8 fL 80-96 H [facility] Erythrocyte mean corpuscular hemoglobin [Entitic mass] by Automated count 33.6 pg 27-33 H [facility] Erythrocyte mean corpuscular hemoglobin concentration [Mass/volume] by Automated count 33.0 g/dL 32.0-36.0 [facility] Erythrocyte distribution width [Ratio] by Automated count 16.6 % 11.5-14.5 H [facility] Platelets [#/volume] in Blood by Automated count 59 10*3/uL 150-400 L [facility] Differential cell count method - Blood [facility] Neutrophils/100 leukocytes in Blood by Automated count 68 % [facility] Lymphocytes/100 leukocytes in Blood by Automated count 7 % [facility] Monocytes/100 leukocytes in Blood by Automated count 22 % [facility] Eosinophils/100 leukocytes in Blood by Automated count 2 % [facility] Basophils/100 leukocytes in Blood by Automated count 1 % [facility] Neutrophils [#/volume] in Blood by Automated count 4.93 10*3/uL 1.8-7 .0 [facility] Lymphocytes [#/volume] in Blood by Automated count 0.48 10*3/uL 1.2-4 .0 L [facility] Monocytes [#/volume] in Blood by Automated count 1.60 10*3/uL 0-0.8 H [facility] Eosinophils [#/volume] in Blood by Automated count 0.17 10*3/uL 0-0.5 [facility] Basophils [#/volume] in Blood by Automated count 0.06 10*3/uL 0-0.2 [facility] Nucleated erythrocytes/100 leukocytes [Ratio] in Blood by Automated count 0 /100{WBCs} 0-0 [facility] ID Date Data Source [id number] 06/17/2020 04:17:59 AM EDT [facility] Name Value Range Interpretation Code Description Data Laura rce(s) Supporting Document(s) Bicarbonate [Moles/volume] in Serum 24 mmol/L 22-29 [facility] Chloride [Moles/volume] in Serum or Plasma 95 mmol/L 98-107 L [facility] Creatinine [Mass/volume] in Serum or Plasma 1.13 mg/dL 0.70-1.20 [facility] Glucose [Mass/volume] in Serum or Plasma 198 mg/dL 70-140 H [facility] Potassium [Moles/volume] in Serum or Plasma 4.3 mmol/L 3.4-5.1 [facility] Sodium [Moles/volume] in Serum or Plasma 128 mmol/L 136-145 L [facility] Urea nitrogen [Mass/volume] in Serum or Plasma 23 mg/dL 6-20 H [facility] Anion gap 3 in Serum or Plasma 10 mmol/L 8-15 [facility] Osmolality of Serum or Plasma by calculation 276 mosm/kg 275-300 [facility] Creatinine/Urea nitrogen [Mass Ratio] in Serum or Plasma 20 [facility] Calcium [Mass/volume] in Serum or Plasma 8.8 mg/dL 8.6-10.0 [facility] Glomerular filtration rate/1.73 sq M pre dicted among non-blacks [Volume Rate/Area] in Serum or Plasma by Creatinine-based formula (MDRD) 69 mL/min/1.73m2 >60 [facility] Glomerular filtration rate/1.73 sq M pre dicted among blacks [Volume Rate/Area] in Serum or Plasma by Creatinine-based formula (MDRD) 80 mL/min/1.73m2 >60 [facility] ID Date Data Source [id number] 06/17/2020 04:17:59 AM [facility] Name Value Range Interpretation Code Description Data Laura rce(s) Supporting Document(s) Magnesium [Mass/volume] in Serum or Plasma 1.9 mg/dL 1.6-2.6 [facility] ID Date Data Source [id number] 06/17/2020 04:17:59 AM [facility] Name Value Range Interpretation Code Description Data Laura rce(s) Supporting Document(s) Phosphate [Mass/volume] in Serum or Plasma 3.4 mg/dL 2.5-4.5 [facility] ID Date Data Source [id number] 06/16/2020 04:35:58 AM EDT [facility] Name Value Range Interpretation Code Description Data Laura rce(s) Supporting Document(s) Leukocytes [#/volume] in Blood by Automated count 7.6 10*3/uL 4-10 [facility] Erythrocytes [#/volume] in Blood by Automated count 2.53 10*6/uL 4.6- 6.1 L [facility] Hemoglobin [Mass/volume] in Blood 8.5 g/dL 13.5-18 L [facility] Hematocrit [Volume Fraction] of Blood by Automated count 25.6 % 4 1-53 L [facility] Erythrocyte mean corpuscular volume [Entitic volume] b y Automated count 101.2 fL 80-96 H [facility] Erythrocyte mean corpuscular hemoglobin [Entitic mass] by Automated count 33.5 pg 27-33 H [facility] Erythrocyte mean corpuscular hemoglobin concentration [Mass/volume] by Automated count 33.1 g/dL 32.0-36.0 [facility] Erythrocyte distribution width [Ratio] by Automated count 16.9 % 11.5-14.5 H [facility] Platelets [#/volume] in Blood by Automated count 55 10*3/uL 150-400 L [facility] Differential cell count method - Blood [facility] Neutrophils/100 leukocytes in Blood by Automated count 63 % [facility] Lymphocytes/100 leukocytes in Blood by Automated count 7 % [facility] Monocytes/100 leukocytes in Blood by Automated count 26 % [facility] Eosinophils/100 leukocytes in Blood by Automated count 3 % [facility] Basophils/100 leukocytes in Blood by Automated count 1 % [facility] Neutrophils [#/volume] in Blood by Automated count 4.85 10*3/uL 1.8-7 .0 [facility] Lymphocytes [#/volume] in Blood by Automated count 0.57 10*3/uL 1.2-4 .0 L [facility] Monocytes [#/volume] in Blood by Automated count 1.94 10*3/uL 0-0.8 H [facility] Eosinophils [#/volume] in Blood by Automated count 0.20 10*3/uL 0-0.5 [facility] Basophils [#/volume] in Blood by Automated count 0.05 10*3/uL 0-0.2 [facility] Nucleated erythrocytes/100 leukocytes [Ratio] in Blood by Automated count 0 /100{WBCs} 0-0 [facility] ID Date Data Source [id number] 06/16/2020 05:02:43 AM [facility] Value Range Interpretation Code Description Data Laura rce(s) Supporting Document(s) Magnesium [Mass/volume] in Serum or Plasma 1.9 mg/dL 1.6-2.6 [facility] ID Date Data Source [id number] 06/16/2020 05:02:43 AM [facility] Value Range Interpretation Code Description Data Laura rce(s) Supporting Document(s) Bicarbonate [Moles/volume] in Serum 26 mmol/L 22-29 [facility] Chloride [Moles/volume] in Serum or Plasma 94 mmol/L 98-107 L [facility] Creatinine [Mass/volume] in Serum or Plasma 1.12 mg/dL 0.70-1.20 [facility] Glucose [Mass/volume] in Serum or Plasma 170 mg/dL 70-140 H [facility] Potassium [Moles/volume] in Serum or Plasma 4.2 mmol/L 3.4-5.1 [facility] Sodium [Moles/volume] in Serum or Plasma 125 mmol/L 136-145 L [facility] Urea nitrogen [Mass/volume] in Serum or Plasma 20 mg/dL 6-20 [facility] Anion gap 3 in Serum or Plasma 5 mmol/L 8-15 L [facility] Osmolality of Serum or Plasma by calculation 267 mosm/kg 275-300 L [facility] Creatinine/Urea nitrogen [Mass Ratio] in Serum or Plasma 18 [facility] Calcium [Mass/volume] in Serum or Plasma 8.5 mg/dL 8.6-10.0 L [facility] Glomerular filtration rate/1.73 sq M pre dicted among non-blacks [Volume Rate/Area] in Serum or Plasma by Creatinine-based formula (MDRD) 70 mL/min/1.73m2 >60 [facility] Glomerular filtration rate/1.73 sq M pre dicted among blacks [Volume Rate/Area] in Serum or Plasma by Creatinine-based formula (MDRD) 81 mL/min/1.73m2 >60 [facility] ID Date Data Source [id number] 06/16/2020 05:02:43 AM EDT [facility] Name Value Range Interpretation Code Description Data Laura rce(s) Supporting Document(s) Phosphate [Mass/volume] in Serum or Plasma 2.9 mg/dL 2.5-4.5 [facility] ID Date Data Source [id number] 06/15/2020 04:29:53 AM EDT [facility] Name Value Range Interpretation Code Description Data Laura rce(s) Supporting Document(s) Leukocytes [#/volume] in Blood by Automated count 8.4 10*3/uL 4-10 [facility] Erythrocytes [#/volume] in Blood by Automated count 2.53 10*6/uL 4.6- 6.1 [facility] Hemoglobin [Mass/volume] in Blood 8.6 g/dL 13.5-18 L [facility] Hematocrit [Volume Fraction] of Blood by Automated count 25.3 % 4 1-53 [facility] Erythrocyte mean corpuscular volume [Entitic volume] b y Automated count 100.3 fL 80-96 [facility] Erythrocyte mean corpuscular hemoglobin [Entitic mass] by Automated count 33.9 pg 27-33 [facility] Erythrocyte mean corpuscular hemoglobin concentration [Mass/volume] by Automated count 33.8 g/dL 32.0-36.0 [facility] Erythrocyte distribution width [Ratio] by Automated count 16.7 % 11.5-14.5 [facility] Platelets [#/volume] in Blood by Automated count 60 10*3/uL 150-400 L [facility] Differential cell count method - Blood [facility] Neutrophils/100 leukocytes in Blood by Automated count 65 % [facility] Lymphocytes/100 leukocytes in Blood by Automated count 7 % [facility] Monocytes/100 leukocytes in Blood by Automated count 25 % [facility] Eosinophils/100 leukocytes in Blood by Automated count 2 % [facility] Basophils/100 leukocytes in Blood by Automated count 1 % [facility] Neutrophils [#/volume] in Blood by Automated count 5.55 10*3/uL 1.8-7 .0 [facility] Lymphocytes [#/volume] in Blood by Automated count 0.55 10*3/uL 1.2-4 .0 [facility] Monocytes [#/volume] in Blood by Automated count 2.11 10*3/uL 0-0.8 H [facility] Eosinophils [#/volume] in Blood by Automated count 0.17 10*3/uL 0-0.5 [facility] Basophils [#/volume] in Blood by Automated count 0.04 10*3/uL 0-0.2 [facility] Nucleated erythrocytes/100 leukocytes [Ratio] in Blood by Automated count 0 /100{WBCs} 0-0 [facility] ID Date Data Source [id number] 06/15/2020 05:13:19 AM [facility] Name Value Range Interpretation Code Description Data Laura rce(s) Supporting Document(s) Bicarbonate [Moles/volume] in Serum 24 mmol/L 22-29 [facility] Chloride [Moles/volume] in Serum or Plasma 93 mmol/L 98-107 L [facility] Creatinine [Mass/volume] in Serum or Plasma 1.02 mg/dL 0.70-1.20 [facility] Glucose [Mass/volume] in Serum or Plasma 137 mg/dL 70-140 [facility] Potassium [Moles/volume] in Serum or Plasma 4.5 mmol/L 3.4-5.1 [facility] Sodium [Moles/volume] in Serum or Plasma 126 mmol/L 136-145 L [facility] Urea nitrogen [Mass/volume] in Serum or Plasma 21 mg/dL 6-20 H [facility] Anion gap 3 in Serum or Plasma 9 mmol/L 8-15 [facility] Osmolality of Serum or Plasma by calculation 267 mosm/kg 275-300 [facility] Creatinine/Urea nitrogen [Mass Ratio] in Serum or Plasma 21 [facility] Calcium [Mass/volume] in Serum or Plasma 8.3 mg/dL 8.6-10.0 L [facility] Glomerular filtration rate/1.73 sq M pre dicted among non-blacks [Volume Rate/Area] in Serum or Plasma by Creatinine-based formula (MDRD) 79 mL/min/1.73m2 >60 [facility] Glomerular filtration rate/1.73 sq M pre dicted among blacks [Volume Rate/Area] in Serum or Plasma by Creatinine-based formula (MDRD) >60 [facility] ID Date Data Source [id number] 06/15/2020 05:13:19 AM [facility] Value Range Interpretation Code Description Data Laura rce(s) Supporting Document(s) Magnesium [Mass/volume] in Serum or Plasma 2.1 mg/dL 1.6-2.6 [facility] ID Date Data Source [id number] 06/15/2020 05:13:19 AM [facility] Name Value Range Interpretation Code Description Data Laura rce(s) Supporting Document(s) Phosphate [Mass/volume] in Serum or Plasma 2.1 mg/dL 2.5-4.5 [facility] ID Date Data Source [id number] 06/15/2020 12:33:29 PM [facility] Name Value Range Interpretation Code Description Data Laura rce(s) Supporting Document(s) Albumin [Mass/volume] in Serum or Plasma by Bromocresol green (BCG) dye binding method 3.0 g/dL 3.5-5.2 L [facility] Bilirubin.total [Mass/volume] in Serum or Plasma 3.0 mg/dL <1.2 H [facility] Confirmed Bilirubin.direct [Mass/volume] in Serum or Plasma 1.3 mg/dL <0.3 H [facility] Alkaline phosphatase [Enzymatic activity/volume] in Serum or Plasma 124 U/L 40-129 [facility] Aspartate aminotransferase [Enzymatic activity/volume] in Serum or Plasma 29 U/L <40 [facility] Alanine aminotransferase [Enzymatic activity/volume] in Seru m or Plasma 15 U/L <41 [facility] Protein [Mass/volume] in Serum or Plasma 5.9 g/dL 6.4-8.3 L [facility] ID Date Data Source [id number] 06/14/2020 04:30:34 PM [facility] Name Value Range Interpretation Code Description Data Laura rce(s) Supporting Document(s) [facility] LTUYGf2oPrRJMtRl93/BYWbxDKEqv3SwRMvkPMq9CXctWUAbQ3SiITT3lA7uCQY1YCfINdFyJxSuXPVw [facility] [file] AgICAgICAgICAgICAgICAgICAgICAgICAgICAgICAgICAgICAgICAgICAgICAgICAgICAgICAgICAgIC AgICAgICAgICAgICAgICAgICAgICAgICAgDQogICAgICAgICAgICAgICAgICAgICAgICAgICAgICAgIC AgICAgICAgICAgICAgICAgICAgICAgICAgICAgICAg ICAgICAgICAgICAgICAgICAgICAgICAgICAgICAgICAgICAgDQogICAgICAgICAgICAgICAgICAgICAg ICAgICAgICAgICAgICAgICAgICAgICAgICAgICAgICAgICAgICAgICAgICAgICAgICAgICAgICAgICAg ICAgICAgICAgICAgICAgICAgDQogICAgICAgICAgIC AgICAgICAgICAgICAgICAgICAgICAgICAgICAgICAgICAgICAgICAgICAgICAgICAgICAgICAgICAgIC AgICAgICAgICAgICAgICAgICAgICAgICAgICAgDQogICAgICAgICAgICAgICAgICAgICAgICAgICAgIC AgICAgICAgICAgICAgICAgICAgICAgICAgICAgICAg ICAgICAgICAgICAgICAgICAgICAgICAgICAgICAgICAgICAgICAgDQogICAgICAgICAgICAgICAgICAg ICAgICAgICAgICAgICAgICAgICAgICAgICAgICAgICAgICAgICAgICAgICAgICAgICAgICAgICAgICAg ICAgICAgICAgICAgICAgICAgICAgDQogICAgICAgIC AgICAgICAgICAgICAgICAgICAgICAgICAgICAgICAgICAgICAgICAgICAgICAgICAgICAgICAgICAgIC AgICAgICAgICAgICAgICAgICAgICAgICAgICAgICAgDQogICAgICAgICAgICAgICAgICAgICAgICAgIC AgICAgICAgICAgICAgICAgICAgICAgICAgICAgICAg ICAgICAgICAgICAgICAgICAgICAgICAgICAgICAgICAgICAgICAgICAgDQogICAgICAgICAgICAgICAg ICAgICAgICAgICAgICAgICAgICAgICAgICAgICAgICAgICAgICAgICAgICAgICAgICAgICAgICAgICAg ICAgICAgICAgICAgICAgICAgICAgICAgDQogICAgIC AgICAgICAgICAgICAgICAgICAgICAgICAgICAgICAgICAgICAgICAgICAgICAgICAgICAgICAgICAgIC BaRRBoMIJeXDHkQHUjJZXrUONsDABvVJKiKOYfYLVwUJYcVOj3U6geLHSyIFJsLJ7kEJf0Yp0+DQoNCm LbKPW0ugHupS5FHP5al1HzGTanVZUxr3RpLRj9OM0J VOGmYJraLQ1CUTeuoy8KFYExWSGncNCKb2joIwAbSXF1TMOiOmwpWQ9ZJUVpY0vkmuLrIZGsKKAFWGre VEBDLTarQWOLBDZmYIFeIjHoLfZzUBUhSJZaHMQOCJE1VFEdIzOnMTGlQWInTU4IUXDlZ859kaLrGM5L Kq6HWbWvXZ7emk1XIgZqFETwTpfHKml6ZMumCD2BqA ZhcTKjLPDcYVFMJxUjN6kqq6AiDmNbWDLQHEbkAL5Aj7XvbBYrFMp+Lx5TOV0pg7LxCKwyQIPpGD5wfv 3FKYgPSpIrX1PczMieDOKoxpM2rJDzOFJ7WADzvgalpSvtUYLJALabC3PxxxvyzUnzWIGcPADwVY0hSs 0mIEXoFXTrThT3OPEQNT6EZUJaLTIatPXdUKTmYNCL XA0YFNjgBVK4HDQsgeCdiIDkXQueKN9YAVLlaeXbOfCgNYCUERh+Ti5NNL8yf9KoELsxHBWkFR7rph8M ZFfEMnEzD5E8lCWoZ3O0KKfuQx4SHOKnNGOfFjKvOUUQHGgvBM9NRJ6ddeY6WS8AwUWlWEDsESJskSLh HZq0X08ywOAvUHqqHE4WXRU+Fady+We6SBEHhTNSdES OwQaFxZMCEDxVpT4NpB7ZRq7ZiZ4UqXR03zOwmkvXaRXteSB7FYR2aVWKvPIFARD2WdWGneF6dbtFwZf LrWGNPTcLbH22oxBGvEPEaVROgNSIyHy8UASCnP3TabfOmuQcibmKeOJSkESFBRU2DOGssxbPagSTmpG rtKE49nLqtPT4PJi6ULfCtAA1kxc7RxVYkYr7TZCGh Di2YJXXxOLObZTKwWHQ0VCKkWlLwFGfsSCZfFQZdHMX3GIXtOLBkSC1DEoQaALYqEDVgZgIqEPLfLXWm af8GVPNqYWP9OuL8SnFzRSCnEVViCVbsGOJeQCDkNAL5CKXhHGSrLQ7XLyDaCQRqXQF0TOpiCXGkQHUv st4RQWTtCAItEYE3LlSeJPTvLRNdYPhbWTFzTOQ3Op U2NWXxWUGsVL5TMyVqXIEuVYg2PEceLZBgINGhte9OZAMrVYUvXoT6KOVqMTIePDSrCVncNOXxSPEbGA CxVUFmGTCnCM3ZLqOfDWOxNCL2VCBdUCRiYKZxtf4HUWEbDVRrGtv0EqDjUHKoAMIcDDxwPUZfBSNzAj c2AHXfZWQnRB2BCfWgVYEyWyP1RYIhHFApJGXdfp6N XAOyTHXbTpz0DpMrJUXbKPIlUEyiVKVoLBA3UNKpYUYcGKFaQN1QTpWvKONjZjQ8CkckCFEuSHUdin6O NKMaVCIrPmj5SHQoOWVrWRYnUOqxQQFbPHS3LKNcWHOfGKFrXV2AOjAnAHQtBxyvMAQqGTVqMNDpiu5F HAWhKWDfDHT8GkSoVQHvPEQeIDzuETKrDNHiGTenFE AcAOQiSB5ZDvUqJAJhIuI7ZAAnANRkBTJkfu4ULUZkVXOcNRLeOPIwIKGeRMJbYHawQVEdQCJgRDI1CZ NaRBLxYW2FEmWrHMBuDvAeJBObLPReEOJejp3ZROJcWEV1WeZ5LQSjUCZhKCGxHFztBHCqRDDsSbT8SA YzPXHjHO5LZnNxFVLuBQT4IZjeODXgGBIhye0OBTEs MXA2RVO0HjFyNKTaXWBjVMffBZLvUUW9JsBjUYAfMZXsQG6XQiKiFBVxDSM2DTShEKMqHFIlqc2DUWJd CXL5FiK5BBXeDXUyCNHiUMnlADOrRPG2ZiZ4TMDgTMLhQM4WOiRbBUHkXEM9NHukEQVzXNCzxf0UyLLu iAthjz1PNAjVRm8EwXixNKD9EOddEu8ibCGcWVVyHZ QFRu2ZngBsNPRzMQIFCYctCBNiYUH8D4SwEpM6HJO9MLC4BCknW8BdZvN1LPEhCpl5TUSbCgT4Vru0LW FqUFI6LMIxNdZ0FPVhXVItHWHxESDaKgB1DBI+UG5wETs+Ox2Sk3IlhaV6oyUiYUy9KzW6Bf5TOCEGA3 YNCg== ID Date Data Source [id number] 06/14/2020 04:04:00 PM EDT [facility] Name Value Range Interpretation Code Description Data Laura rce(s) Supporting Document(s) SARS-CoV-2 RNA 2019 nCoV Real-Time RT-PCR: NOT DETECTED [facility] This lab was ordered by [facility] and reported by [facility] ID Date Data Source [id number] 06/14/2020 07:53:53 PM EDT [facility] Name Value Range Interpretation Code Description Data Laura rce(s) Supporting Document(s) Specimen source [Identifier] of Unspecified specimen [facility] SARS-CoV-2 RNA 2019 nCoV Real-Time RT-PCR: NOT DETECTED [facility] Assay Performed [facility] Patients first test for condition [facility] Patient employed in healthcare setting [facility] Patient has symptoms related to condition [facility] When did you start to experience these symptoms [Date and time] [Phen X] [facility] Patient was hospitalized because of this condition [facility] patient was admitted to ICU for condition [facility] Patient resides in a congregate care setting [facility] status [facility] ID Date Data Source [id number] 06/14/2020 03:26:05 PM EDT [facility] Name Value Range Interpretation Code Description Data Laura rce(s) Supporting Document(s) Consultation [facility] YQSLRv0gNpURKhPs35/ELEtdINLav2QbRKnpXEx3QObqDFSbJ0HqZHO1zV3iRLI3UFkJCzHfEhGfTYJa lbm [file] AgICAgICAgICAgICAgICAgICAgICAgICAgICAgICAg ICAgICAgICAgICAgICAgICAgICAgICAgICAgICAgICAgICAgICAgICAgICAgICAgICAgDQogICAgICAg ICAgICAgICAgICAgICAgICAgICAgICAgICAgICAgICAgICAgICAgICAgICAgICAgICAgICAgICAgICAg ICAgICAgICAgICAgICAgICAgICAgICAgICAgICAgIC AgDQogICAgICAgICAgICAgICAgICAgICAgICAgICAgICAgICAgICAgICAgICAgICAgICAgICAgICAgIC AgICAgICAgICAgICAgICAgICAgICAgICAgICAgICAgICAgICAgICAgICAgDQogICAgICAgICAgICAgIC AgICAgICAgICAgICAgICAgICAgICAgICAgICAgICAg ICAgICAgICAgICAgICAgICAgICAgICAgICAgICAgICAgICAgICAgICAgICAgICAgICAgICAgDQogICAg ICAgICAgICAgICAgICAgICAgICAgICAgICAgICAgICAgICAgICAgICAgICAgICAgICAgICAgICAgICAg ICAgICAgICAgICAgICAgICAgICAgICAgICAgICAgIC AgICAgDQogICAgICAgICAgICAgICAgICAgICAgICAgICAgICAgICAgICAgICAgICAgICAgICAgICAgIC AgICAgICAgICAgICAgICAgICAgICAgICAgICAgICAgICAgICAgICAgICAgICAgDQogICAgICAgICAgIC AgICAgICAgICAgICAgICAgICAgICAgICAgICAgICAg ICAgICAgICAgICAgICAgICAgICAgICAgICAgICAgICAgICAgICAgICAgICAgICAgICAgICAgICAgDQog ICAgICAgICAgICAgICAgICAgICAgICAgICAgICAgICAgICAgICAgICAgICAgICAgICAgICAgICAgICAg ICAgICAgICAgICAgICAgICAgICAgICAgICAgICAgIC AgICAgICAgDQogICAgICAgICAgICAgICAgICAgICAgICAgICAgICAgICAgICAgICAgICAgICAgICAgIC AgICAgICAgICAgICAgICAgICAgICAgICAgICAgICAgICAgICAgICAgICAgICAgICAgDQogICAgICAgIC AgICAgICAgICAgICAgICAgICAgICAgICAgICAgICAg ICAgICAgICAgICAgICAgICAgICAgICAgICAgICAgICAgICAgICAgICAgICAgICAgICAgICAgICAgICAg OQm3H4qiMOTcABQcSJ4eOPq1Xf3+YTiNXxTzDOI4bcHjpC2RWL9pl3ZnJBrzRCTzc4EgDEg1RF2JHOVb SPlhUK2AIMwpsf3UORWrLVPhlZIPo9wgBlZvAQB4YO XmYtoyPY3LUVUzM1guaxLaLKWxSTVEFQ8SNdGcH0HkgM93YCNKUl2+BOpwvySgCdxQGtJ9SONnd1RyJY l3IA5EYAOlGrqyo5OiBOzlQGTYBYryES2WSRB2JVU2WPVpVh3OBZBxN039odHxMC7BBc1YTpHlVX6pam 8ELZbvCQFtDokQFhr5CZwtCG7QrUTkGWiTe61qoJw7 pjTrzXGLDAJwOV8hjvIawynjUv0pHNLpOR1hZp3gRYJhEHVmTmU0KORDCA2CKGRcLWOmqLHlIOHlVPEC LU9UHKixINT5GZBkbzIbnFWqHMklYL7HJPUsziLjGKfrYYBKBAa+Iq1PIW6ns3EbISgaFEVpCG1bgn0U RAxBZyAdG7J2dBHaU8N7BHdnXt2ZHOSqCCCnWHJkLX DARXfmTL7NIF6lxuK3GB5SgQBfQZUoRLBlbDXtCXq3B85suVUgCAooHT4CQDV+Fady+Xg7WPIOqUFMvKV HbLhUuQOTIBfDwX0MyX3HJb4KpK4KbEI26fNzzeeUxFWjnER2IDK5lSWCkVRCKNP8OkQPfnN0xhtGdUi QlAEUPZhXxP77pdTYeSINtMYR2EQGxJe9FCGYiT8Dj ooTvzGpkugYpUBUnGKTXYW3PRLoggiWnmDVdrQdcRZ73xXlvBK6HRj8ACeBaQG3vuk7CnMDhDz2NRYVy PQ5NJGScTCNrNLBiZSO8TKAyApLaKJbgFSAvTSWyHAP2YXYmCSOyIC1JYeTvKQZuCZA0DCEsWBOdRVVd zu8LAXAoKSRtNvH4HCAxUPJuNPRbJOqyLPUjZRFaXG C6MJWfEPArXR2WZkUlIAGiHZR7ZHQzNCCuLZYyzh8DGZPoDEQvBWa6FKHyMQSbPXAjJOzjFPNaBQUvHF E2IZAlRYIqTK6TPlLbZLEnZPSqPESdNRRmLPEysr2REQJwRKCqUfUmBYVmAPCtVZQyZYpxMXLcUQJ3MD d3QJGzUTDwKZ6QVnTuDRVbTHSiMHTgSKCqHMKmnl2H EEUjWMYyXPU7UmQfKOMzLGDgBSzjFEFmCVK0ZNW8QDYqTVSsMK5UQvFeJBDvPDU3CnSbMLEbKZDpwu3H FMJvKOQkZCqkYsCqLFGoSVZcFZlrGIAmYCU4GoV3LTXuHGEnGW0WVfOhMBIpMTq7SaaxCCOjEDVokx4H PROzJBYdXkz1YETqHZKmNLInFFoxZVQnXRF1LZm2FB XbGBCkMA9HRbJpULhgNUZOTez2CMvtS4i4BZTiAY3HP2Frz1QkCPipFHKBQLluED7qrjXoJFBkPy1TC3 jBUnipNQitVjGrEiP1KTUoFYV1L3A9OzV5RAXaCmEaNtq4JL4mONUmOASlNTUvOQu4E6X3CgnxQyisLF Q3IAD9MJWaJjQ5MjOeZY5BYm9JIdZ6NKA2cADwOs2OSGTbZv8NKPIOM4IBXk== ID Date Data Source [id number] 06/14/2020 01:04:05 PM EDT [facility] XR THORACIC SPINE AP AND LATERALFINAL [...] rce(s) Supporting Document(s) ID Date Data Source [id number] [facility] Code Description Data Laura rce(s) Supporting Document(s) Ammonia [Moles/volume] in Plasma 33 umol/L 16-60 [facility] ID Date Data Source [id number] 06/14/2020 10:20:41 AM EDT [facility] Name Value Range Interpretation Code Description Data Laura rce(s) Supporting Document(s) Osmolality of Urine 510 mosm/kg 300-1000 [facility] ID Date Data Source [id number] 06/14/2020 10:50:34 AM [facility] Value Range Interpretation Code Description Data Laura rce(s) Supporting Document(s) Sodium [Moles/volume] in Urine 32 mmol/L [facility] Confirmed ID Date Data Source [id number] [facility] Code Description Data Laura rce(s) Supporting Document(s) Leukocytes [#/volume] in Blood by Automated count 6.8 10*3/uL 4-10 [facility] Erythrocytes [#/volume] in Blood by Automated count 2.46 10*6/uL 4.6- 6.1 [facility] Hemoglobin [Mass/volume] in Blood 8.3 g/dL 13.5-18 L [facility] Hematocrit [Volume Fraction] of Blood by Automated count 24.8 % 4 1-53 L [facility] Erythrocyte mean corpuscular volume [Entitic volume] b y Automated count 100.7 fL 80-96 H [facility] Erythrocyte mean corpuscular hemoglobin [Entitic mass] by Automated count 33.7 pg 27-33 H [facility] Erythrocyte mean corpuscular hemoglobin concentration [Mass/volume] by Automated count 33.5 g/dL 32.0-36.0 [facility] E[facility]throcyte distribution width [Ratio] by Automated count 16.9 % 11.5-14.5 [facility] Platelets [#/volume] in Blood by Automated count 52 10*3/uL 150-400 [facility] Differential cell count method - Blood [facility] Neutrophils/100 leukocytes in Blood by Automated count 63 % [facility] Lymphocytes/100 leukocytes in Blood by Automated count 9 % [facility] Monocytes/100 leukocytes in Blood by Automated count 25 % [facility] Eosinophils/100 leukocytes in Blood by Automated count 2 % [facility] Basophils/100 leukocytes in Blood by Automated count 1 % [facility] Neutrophils [#/volume] in Blood by Automated count 4.32 10*3/uL 1.8-7 .0 [facility] Lymphocytes [#/volume] in Blood by Automated count 0.61 10*3/uL 1.2-4 .0 L [facility] Monocytes [#/volume] in Blood by Automated count 1.71 10*3/uL 0-0.8 H [facility] Eosinophils [#/volume] in Blood by Automated count 0.16 10*3/uL 0-0.5 [facility] Basophils [#/volume] in Blood by Automated count 0.03 10*3/uL 0-0.2 [facility] Nucleated erythrocytes/100 leukocytes [Ratio] in Blood by Automated count 0 /100{WBCs} 0-0 [facility] ID Date Data Source [id number] 06/14/2020 04:55:44 AM [facility] Name Value Range Interpretation Code Description Data Laura rce(s) Supporting Document(s) Phosphate [Mass/volume] in Serum or Plasma 2.7 mg/dL 2.5-4.5 [facility] ID Date Data Source [id number] 06/14/2020 04:55:44 AM [facility] Name Value Range Interpretation Code Description Data Laura rce(s) Supporting Document(s) Bicarbonate [Moles/volume] in Serum 25 mmol/L 22-29 [facility] Chloride [Moles/volume] in Serum or Plasma 95 mmol/L 98-107 L [facility] Creatinine [Mass/volume] in Serum or Plasma 1.09 mg/dL 0.70-1.20 [facility] Glucose [Mass/volume] in Serum or Plasma 148 mg/dL 70-140 H [facility] Potassium [Moles/volume] in Serum or Plasma 3.3 mmol/L 3.4-5.1 L [facility] Sodium [Moles/volume] in Serum or Plasma 129 mmol/L 136-145 L [facility] Urea nitrogen [Mass/volume] in Serum or Plasma 23 mg/dL 6-20 H [facility] Anion gap 3 in Serum or Plasma 9 mmol/L 8-15 [facility] Osmolality of Serum or Plasma by calculation 274 mosm/kg 275-300 L [facility] Creatinine/Urea nitrogen [Mass Ratio] in Serum or Plasma 21 [facility] Calcium [Mass/volume] in Serum or Plasma 8.5 mg/dL 8.6-10.0 L [facility] Glomerular filtration rate/1.73 sq M pre dicted among non-blacks [Volume Rate/Area] in Serum or Plasma by Creatinine-based formula (MDRD) 72 mL/min/1.73m2 >60 [facility] Glomerular filtration rate/1.73 sq M pre dicted among blacks [Volume Rate/Area] in Serum or Plasma by Creatinine-based formula (MDRD) 84 mL/min/1.73m2 >60 [facility] ID Date Data Source [id number] 06/14/2020 04:55:44 AM EDT [facility] Name Value Range Interpretation Code Description Data Laura rce(s) Supporting Document(s) Magnesium [Mass/volume] in Serum or Plasma 2.1 mg/dL 1.6-2.6 [facility] ID Date Data Source [id number] 06/13/2020 03:12:01 PM EDT [facility] Name Value Range Interpretation Code Description Data Laura rce(s) Supporting Document(s) ED Provider Note [facility] PFTUFa9dRnVCJzXn25/NDMejOCSdc5HeHGtkNJj2HYaiCTVwL0SuYFY6eN3lGUA2VLsSOeKpRgZhANMc [facility] [file] AwMDAyMjQxNCAwMDAwMCBuDQowMDAwMDIyNjIwIDAw YCFoZB6ABwPyZHMrExIeDPArSHRxNGJmnm5JPTXdHTPgCtR3BBBkOSFrUEDgYDosINNyCTW5HVF2CCDm IXSgKX3EXmOnMYUfCoOtYaVwNPYdSCAzhq2ETZXoSQHnTdc6WjXgFBFbKSDfKKmmIYYzOPDaREmuDMDo HMLxBW1BJeSaXHGeMwMgBuPxCDBkYULscv0QSHXtJC XkLeX2JXOyANGiSKHyRLsaRFFkDBE4ZnZ8YQYcAXZmCW5TQrDrPVYuGgd1BxXlMEYtCJYjam1LIPBbJU RxPuJyGJWtBIRbYNEkDBenYJSpUON2MFV6DMIsEAEsIL2GMbKaAJIiGba6OwwaQYQgPIFfes0PHOMlKG PuHEj7SqVtAUNiSZPeSMiaFNRaFMX6VRP4TYEiWEOl MR8DXnYzOGRyCUVxIEIpDBHbMHMyqr7VCYZhZPF7UKB1MiAiVSZnEFWqRVsrOTQpBNVpKlugDKDsHVCe DS7BMfMcOCBrJISbRYFxDIRjGZFlet3PVWRpFZO6XxBaSNSzCHOdVYNvSBupDOQmQKXqEHH7YNWpPPGp VK4FRrLeYFQsEIN2NRKqUSUlZUZyds2LNTDiWHB4Pz OrSNBtZONoMAHtQXlvVWMrRQHfIiY9KKQpAOAdST4OUdKrSTNcRAT2NRBqUVNhENConc0QAACrFLI1RT SlDlVjLYEoLFMfPFgfKDXkDCK9MRI6BLFzPHVxWF8RPaXuHKSdMQZ1UOXfFRIaDLGlud6VXTVtTZE8Jn O1ArVfIKKxQKVpXHbeZXYfGDG9FlahQDEhKZXhOQ8E RuGnWXKnTWZ8TFWkJGLfJSKbhw2ZRGFqRTP0JlJaJYUuRNGmTCVhMIrqSCKjOYX0Bdv0GWLdBBMjEV7P WgQuIEJmUST9YoXfDBUuDYOvva3HWRQvIVD4QmG8QCYmDLSvIINpNCufXASkKTB6IgN2AYQsHGQxGN4A HdPxBLBbWKx5WAMgNRLaVBTovw6GQMMwNQC3AxV5Gh IhSTXqLZTjIWvcYNXnPPG7KBDuBCRsINUdRY6YDlFfWVwgYFEGJmu3OVcvJ7a0PLW5XP6BO3Lje6ZwDF svOKFEJByeTV4sakXtSPDiSa4XJ4pHUek6GJYvUKHzMKM9JNH8X6I6FXW4EpZ5EDLoDnx4UBLrOq0pCF zpGuDcDkEqCUQ5ELnhRKExDVFxBSC1JCVlXlXaFnGi OxLxCN7ODo6GErQ1PTP5iRRxOr5QCOdeIWVPAmXtJD4WFFd= ID Date Data Source [id number] 06/13/2020 10:29:26 AM EDT [facility] CT HEAD WITHOUT CONTRAST [id number] RESU LTInterpreted by:Livia Perez, MDCT HEAD WITHOUT [...] Name Value Range Interpretation Code Description Data [facility] rce(s) Supporting Document(s) ID Date Data Source [id number] 06/13/2020 05:14:29 AM [facility] Name Value Range Interpretation Code Description Data [facility](s) Supporting Document(s) Leukocytes [#/volume] in Blood by Automated count 7.4 10*3/uL 4-10 [facility] Erythrocytes [#/volume] in Blood by Automated count 2.44 10*6/uL 4.6- 6.1 L [facility] Hemoglobin [Mass/volume] in Blood 8.3 g/dL 13.5-18 L [facility] Hematocrit [Volume Fraction] of Blood by Automated count 24.7 % 4 1-53 L [facility] Erythrocyte mean corpuscular volume [Entitic volume] b y Automated count 101.4 fL 80-96 H [facility] Erythrocyte mean corpuscular hemoglobin [Entitic mass] by Automated count 33.9 pg 27-33 H [facility] Erythrocyte mean corpuscular hemoglobin concentration [Mass/volume] by Automated count 33.5 g/dL 32.0-36.0 [facility] Erythrocyte distribution width [Ratio] by Automated count 17.1 % 11.5-14.5 H [facility] Platelets [#/volume] in Blood by Automated count 51 10*3/uL 150-400 L [facility] Differential cell count method - Blood [facility] Neutrophils/100 leukocytes in Blood by Automated count 68 % [facility] Lymphocytes/100 leukocytes in Blood by Automated count 6 % [facility] Monocytes/100 leukocytes in Blood by Automated count 24 % [facility] Eosinophils/100 leukocytes in Blood by Automated count 2 % [facility] Basophils/100 leukocytes in Blood by Automated count 0 % [facility] Neutrophils [#/volume] in Blood by Automated count 5.02 10*3/uL 1.8-7 .0 [facility] Lymphocytes [#/volume] in Blood by Automated count 0.46 10*3/uL 1.2-4 .0 L [facility] Monocytes [#/volume] in Blood by Automated count 1.77 10*3/uL 0-0.8 H [facility] Eosinophils [#/volume] in Blood by Automated count 0.11 10*3/uL 0-0.5 [facility] Basophils [#/volume] in Blood by Automated count 0.02 10*3/uL 0-0.2 [facility] Nucleated erythrocytes/100 leukocytes [Ratio] in Blood by Automated count 0 /100{WBCs} 0-0 [facility] ID Date Data Source [id number] 06/13/2020 05:26:25 AM EDT [facility] Name Value Range Interpretation Code Description Data [facility] rce(s) Supporting Document(s) Bicarbonate [Moles/volume] in Serum 25 mmol/L 22-29 [facility] Chloride [Moles/volume] in Serum or Plasma 97 mmol/L 98-107 L [facility] Creatinine [Mass/volume] in Serum or Plasma 1.30 mg/dL 0.70-1.20 H [facility] Glucose [Mass/volume] in Serum or Plasma 149 mg/dL 70-140 H [facility] Potassium [Moles/volume] in Serum or Plasma 3.5 mmol/L 3.4-5.1 [facility] Sodium [Moles/volume] in Serum or Plasma 134 mmol/L 136-145 L [facility] Urea nitrogen [Mass/volume] in Serum or Plasma 28 mg/dL 6-20 H [facility] Anion gap 3 in Serum or Plasma 12 mmol/L 8-15 [facility] Osmolality of Serum or Plasma by calculation 286 mosm/kg 275-300 [facility] Creatinine/Urea nitrogen [Mass Ratio] in Serum or Plasma 22 [facility] Calcium [Mass/volume] in Serum or Plasma 8.9 mg/dL 8.6-10.0 [facility] Glomerular filtration rate/1.73 sq M pre dicted among non-blacks [Volume Rate/Area] in Serum or Plasma by Creatinine-based formula (MDRD) 59 mL/min/1.73m2 >60 L [facility] Glomerular filtration rate/1.73 sq M pre dicted among blacks [Volume Rate/Area] in Serum or Plasma by Creatinine-based formula (MDRD) 68 mL/min/1.73m2 >60 [facility] ID Date Data Source [id number] 06/13/2020 05:26:25 AM [facility] Name Value Range Interpretation Code Description Data Laura rce(s) Supporting Document(s) Magnesium [Mass/volume] in Serum or Plasma 2.5 mg/dL 1.6-2.6 [facility] ID Date Data Source [id number] 06/13/2020 05:26:25 AM [facility] Name Value Range Interpretation Code Description Data Laura rce(s) Supporting Document(s) Phosphate [Mass/volume] in Serum or Plasma 2.9 mg/dL 2.5-4.5 [facility] ID Date Data Source [id number] 06/12/2020 08:59:14 PM [facility] Name Value Range Interpretation Code Description Data Laura rce(s) Supporting Document(s) Bicarbonate [Moles/volume] in Serum 27 mmol/L 22-29 [facility] Chloride [Moles/volume] in Serum or Plasma 95 mmol/L 98-107 L [facility] Creatinine [Mass/volume] in Serum or Plasma 1.43 mg/dL 0.70-1.20 H [facility] Glucose [Mass/volume] in Serum or Plasma 237 mg/dL 70-140 H [facility] Potassium [Moles/volume] in Serum or Plasma 3.1 mmol/L 3.4-5.1 L [facility] Sodium [Moles/volume] in Serum or Plasma 132 mmol/L 136-145 L [facility] Urea nitrogen [Mass/volume] in Serum or Plasma 31 mg/dL 6-20 H [facility] Anion gap 3 in Serum or Plasma 10 mmol/L 8-15 [facility] Osmolality of Serum or Plasma by calculation 288 mosm/kg 275-300 [facility] Creatinine/Urea nitrogen [Mass Ratio] in Serum or Plasma 22 [facility] Calcium [Mass/volume] in Serum or Plasma 8.3 mg/dL 8.6-10.0 L [facility] Glomerular filtration rate/1.73 sq M pre dicted among non-blacks [Volume Rate/Area] in Serum or Plasma by Creatinine-based formula (MDRD) 52 mL/min/1.73m2 >60 L [facility] Glomerular filtration rate/1.73 sq M pre dicted among blacks [Volume Rate/Area] in Serum or Plasma by Creatinine-based formula (MDRD) 60 mL/min/1.73m2 >60 L [facility] ID Date Data Source [id number] 06/12/2020 06:33:16 PM EDT [facility] Name Value Range Interpretation Code Description Data Laura rce(s) Supporting Document(s) History and Physical [facility] CZIFVy2eRpUDSiMb05/UCPvaKIQkj7TtVFpkKAj6FLvaXADxB4HrYBJ7eM7dCKB0ZBiDEjHwApHkTZGz [facility] [file] ICAgICAgICAgICAgICAgICAgICAgICAgICAgICAgICAgICAgICAgICAgICAgICAgICAgICAgICAgICAg YRRxTWDoDJXuYYNeVIUmQCHhTOBdJBZySJ2HTYCvWGRqEUHyRZXzPGDbOXIkSTImDPBbQVEzTBZvHONi ICAgICAgICAgICAgICAgICAgICAgICAgICAgICAgIC EtHIGtOBEqJTUbWGEvJOFcKJUuCCCkUWDvYMOsOKAbWNRiNV7WTOMrVUJoJKBeAISgVWAhXPNnZDZfTR AgICAgICAgICAgICAgICAgICAgICAgICAgICAgICAgICAgICAgICAgICAgICAgICAgICAgICAgICAgIC TdTXMqCFJuMADdYYKeTJHmLW4EKPJgWPCiQYVyIQZa ICAgICAgICAgICAgICAgICAgICAgICAgICAgICAgICAgICAgICAgICAgICAgICAgICAgICAgICAgICAg HGViPMPwJTZkNQIsQZYbXILgXGHlIMGlSYOtTD5MDWHlPAOcPJQbEKInRRIwCQVfZDWtEVBdKBWnMWUe ICAgICAgICAgICAgICAgICAgICAgICAgICAgICAgIC YdRIYhUNOkYJCuXPNlBKSwVUKwUDNgNSQbRDXpHPDnTLWqVZBaYR8CUGVbTGGuZNZjIVCvUBXzOFFiAR AgICAgICAgICAgICAgICAgICAgICAgICAgICAgICAgICAgICAgICAgICAgICAgICAgICAgICAgICAgIC NnPCGzSCUdQUQgGKDzJBUkZQJjUR0RMYVnWCEaAYGh ICAgICAgICAgICAgICAgICAgICAgICAgICAgICAgICAgICAgICAgICAgICAgICAgICAgICAgICAgICAg BXOaYYJiCLQkJXWoYQZeZACfYOKnXFUiINVrYSEfKJ4HRMEhAQGmWZFiAGQiROPaWFFlUFJrCDKiGGQr ICAgICAgICAgICAgICAgICAgICAgICAgICAgICAgIC EeWEXrNQXiAUYtNSRhLSAfAOMlOJQfBLMdXHUnOTCoXOQqIPYwGJXxWK9LJQEoJNDxYHShGYPqOJBqNX AgICAgICAgICAgICAgICAgICAgICAgICAgICAgICAgICAgICAgICAgICAgICAgICAgICAgICAgICAgIC NsBSAkAFXqQJPbNTOhPKFuXHRaOUQjSU4CKVKuLOSo ICAgICAgICAgICAgICAgICAgICAgICAgICAgICAgICAgICAgICAgICAgICAgICAgICAgICAgICAgICAg RFVzOFNkHTAnGOFlWSYmIBTkSMNcYPSvIZCjUYZgOOBpCR8PCR39kTYqc7P4RPPsOA0gehh/Jg1IFKok niVeuKWeKM5HTvTuIB9maa7OAhTjJE1ohg9CHMaITg YyK4S9jBNyTJQgOOUYYxTrV25sZBgpTr61HNszTCCjUvJtHBp6Rb3TFzQqP6tkUPUeYvX9FWMvCvG2KV XpTdB0AGQkXcKvDUEbIPHdXPExOWCSROA0CYNxGaQgFOllFD1Dw3SfiDF5OXb+Dn4AWJ5ht5OgHUzvSA GyQT1eci5WRDzRKhTsX5PzwbD7IHM1HCAvFc0WYAQb HUTmeASmSYLhBMHBUlYkA2PduP94VXZWEz9+YXdtpvDpUgjULfS2VVOzd4NgHMw4GX2NGNGbRBe5lACd CPFTSCZ0NUEeSE1qDyVGyBRxOTFaIKWDUTTygQA3UuUcIrUcWyFzKFn7HULnVT1hBFleFR5RNNM2OQex XVIuQCEfX6uRCyJgSNKvYuIhkMstQN8AAzOtD6Hrkv VudCAzOCAwIFINCj4+LNvfmtTkByyWFgYrBFPso7FbXHx1VT3PMQPfDUwpVD7EVQVpxZ3hXYypCJ8VVp OmZqUpGTLVZdNyX39xaFWjHHa3K7YmKfPzWSVxNbdwZDOtTPqdBkQkBDNjWtHwKQgqKP2+ID4+DQogIC 9WMBmtipRmFWUpWl9BQODjDRWdAL6jGHTjNTDaX1R0 kNfmZGNJAbKmS0eokbqgAC0qKWCeF177nBdmcrNxTYR1FAJfQk4LCPLlRGF4QDBnyHJnWaoaQZFXYCkz ZI6FyMTmEIT7eM1lFQwiJCQyASLqM1qPCuUjlNqxKC03uEhptkPdbFKvRUf+Yd6PBD5sb1CeNWx1mbPf XGnaDVLaDAlgQNHdMSIeHVJfZHT8EQG2ZAOJSvXkCW OuCRWfGYbcYDIsHRBygf3EHQDnDMNnUJA7COIjJJWqUESuNHvoNIPfFUL1FCNkADTyIIBcRD2ZFwLoME SzBZGlBNkhIZPbYGRejx8SGNQpGGIzObN5QeJrLGHwKAErGDusPPXeSLEpCjk4LEGzSVCuFF3AMpAlGG AiCSe0JuPmXLGlVQVrgr9GVBCrVHPkPzN1MqEiZJNp BMAuSLbzPGDoXDVpDxS0YIVhHLRmPC8SFbEqJNPuCTZ6BcTsNZNrFYQdvx1FGLHjRETiEBE8PHLdWEQl JZYaMJniUKTnOAY0DdT9OEDpOFStTI0ZAgTjQFKyYIk8ZXEvWRIqPFSrmu0SDLSqFUFeUYOmMPPuKNYm EBRvORpjKOUsHYI3QEWdPFGsHQOxSY1YUgNeYXIaSG drRFlmMDHiMLFulr4YCAWgIEKnXSTvRcDfZJScXGGiUNadCBQhHYLnUnV8ANZbKZEbLC9XUqLxWPDiWb ZcRInaPGVoDDBzok1IVQYuFQDiBUV0DiHyNUBvBVFfNVseXVOcORNsXQZ6FBQtVANtIR7RTkMaQLEbNr S6DQXsTBUuZJSsum6CWGXpUWDbUjxpTOUzOVCeRXEl LPqgAQPqKMIePTE8OVWfTPEmCQ9VGnApEUDeSpGcLSAfCXPgLOFinp6MWNNxRJNbLCF0PAOjQXHcARPn PDflMMJhOAL2ZjTyWHYoFWAcUM1FRqDlNVOhWzE6MzEnMXOeYOYdeu2BYJXdJABfLUeaHJChWQPxGPRw QXsiXDQyBSI5QUW4HZSmQWArVD8XOqAcUSNlOuBpJX hwGYGnVKLsmv0QUCIkGRIzWvR6RtEiPKRlJVAyRSshWOJtGCK0GdFbKOHtTKQnLV0HSwUlJRHpYjh7Fh KwGHArLHKabr0NKXVqDOYiTsg5MUXlFBChFLOvFYsnQMKqPBU9EHWjUNCyDRVaRL9CNyGyUANzHes4FT LzOHXqJMPayk8RKTKbUPNeJUg2NyItIFOxSHCnQEyt JUSbNDLdDJDaHZWpKYUcGB5CSgEeNYFnWTOkDcWzEVGqQAEadz7XpXQleSwyvu4NQSaSOh8XxZnpPDTk TNhaHk7toHI1OQZfQMKOJy6KjmQvXLYsQMZTQJqkRAMhFLH4X9R9REIjZ8X3ZXNtKwNnLkB3IJNdYTGz APDlTGMjKaY1EnQ3MJR5PILlSPOiTFIwLyQnJbEjUk SlXACqZEX0ECQ+WW7lDFl+Dj8Vo6EhygM4cyTgOCq9PAHaZR8UWUTLZ5EKEz== ID Date Data Source [id number] 06/17/2020 01:38:34 PM EDT [facility] Service Cmnt XXX-Imp : NoneGram Stn XXX : 2+WBC'S Seen.No organisms seenSpecimen concentrated prior to staining.Microorganism XXX Cult : No growth 5 days Name Value Range Interpretation Code Description Data Laura rce(s) Supporting Document(s) ID Date Data Source [id number] 06/12/2020 03:52:30 PM EDT [facility] Name Value Range Interpretation Code Description Data Laura rce(s) Supporting Document(s) Albumin [Mass/volume] in Body fluid 0.8 g/dL [facility] (NOTE)The performance characteristics of this test for this specimen typewere determined by the Department of Pathology at [facility] and approved by the [facility] Department of Health. It has notbeen cleared by the FDA. ID Date Data Source [id number] 06/12/2020 03:52:30 PM EDT [facility] Name Value Range Interpretation Code Description Data Laura rce(s) Supporting Document(s) Triglyceride [Mass/volume] in Body fluid 26 mg/dL [facility] (NOTE)The performance characteristics of this test for this specimen typewere determined by the Department of Pathology at [facility] and approved by the [facility] Department of Health. It has notbeen cleared by the FDA. ID Date Data Source [id number] 06/12/2020 03:52:30 PM EDT [facility] Value Range Interpretation Code Description Data Laura rce(s) Supporting Document(s) Protein [Mass/volume] in Body fluid 1.8 g/dL [facility] (NOTE)The performance characteristics of this test for this specimen type were determined by the Department of Pathology at [facility] and approved by the [facility]. It has not been cleared by the FDA. ID Date Data Source [id number] 06/12/2020 05:32:47 PM EDT [facility] Value Range Interpretation Code Description Data Laura rce(s) Supporting Document(s) Color of Body fluid [facility] Appearance of Body fluid [facility] Erythrocytes [#/volume] in Body fluid by Manual count 9 /uL 0 H [facility] Cell count panel - Body fluid 57 /uL <200 [facility] Microscopic observation [Identifier] in Body fluid by Other stain [facility] Cell count and Differential panel - Body fluid [facility] Neutrophils/100 leukocytes in Body fluid by Manual count 20 % < 25 [facility] Monocytes+Macrophages/100 leukocytes in Body fluid by Manual count 19 % [facility] Lymphocytes/100 leukocytes in Body fluid by Manual count 49 % [facility] Other cells [#] in Body fluid by Manual count 12 % [facility] ID Date Data Source [id number] 06/12/2020 01:26:02 PM EDT [facility] Value Range Interpretation Code Description Data Laura rce(s) Supporting Document(s) EKG [facility] HJFVFn8yKhHTRoKpd8TxPoDjCPHdWL5vyql7Y4E8hCXsR3UseMQrm8icP3GiP0PwJPMiBCEBOZ8GbTSt jb2 [file] j/ZsaM+G9my3/5szt7xW2t7J82nO+Saravanan+av8+7j1wv vPBq3KBO1vZtTf9L/4N/a9IojsvigcL+ZXP5vf/KsTL3r50xE29xayMve7Qk6bA02blyLD/P3A+Qeui/ pi/sr8zk+s71ainv/Dwm6Fy8/ik9ynhc+rvtr8f9P6hvWY+d5BhABXSpF8I4N/ehO3hm3wm45s5F0cBT G22RiWvVU3wVceDdal5O1TF6/5zvN/7bjz6yb/v+aq 49VohS0/qa/leuSjr/zolrMG+k/V1YIxU15huqPOG63E1V+ca/4q/+bUN+2i819Xpnh7twnjg23n27+q HDc+OX818+5QoyeCxg57e+NZy/xfu9JRu02RF/57C34bOIyWQZ/2WoHqmqbw84MI+7vY+c7tG56rL3g1 VWWD3+B3+JGvZsAfNz/M+/q0yuZYvpq5iG683J5g6y Om8ND7Int/1wO/wC/wK/pGL5tvC/jx/F14/n15ulwocho2QRE+Cf+Ef8GP+i7UN/ROxqQhtFJ1HJ7U/8 4/830zj7bMj1wz7g5+hz/gx/NoD/jx+272ulZLRf6s9IfQtLUXS/7c+vpz87M/V0/6c+c3/Ln62Z+rnz 495FkJ2+G/419/7vjXnzv+9eeO9/0Z8E/4J/wL/jte 0ZYUni6S9vfcsdcE9Ev0609Wi28hzzJg80wgdUy+0g038ffDpePV4/kFEca1nb+9ZfgH/AP+Cf+Ef8G/ 4N+47v6O+ckbW80f+AX+N465Jamj0aA6Kw/Bj/gjni25b+C6A/4B/4R/wn/ki0TUjDUcKy++v4vd+Wc3 /Z1L44rM/jv/8Kuvt80c3kB93wezvH+ja3x42WGORq m6qCIzFkRRB2383LEEBzw0mRu+YvCGE4MU/45/XoeXXt7P9H1a/vuSma32wpAZE/6Af8A/4J/wT/gX/A v+Df+dj/H177VkX/wqioHanF7I3Dd/mGWD3+GHxID7cTph00V1hCh07Nl+6Xpgc7Hs9eqJkIl6bZt6gi AtX/+628885k9EYeHO+NGex31/dFYNv/1y0Sc8G26m LcN/3x+dBcPfcyI/s3GwWYbDAfqW/gX/hv/OP/uA1imKsqY+0Oed3/I08wl62RBFUF4G98Wln/nRf/F+ 0OcdL/gcuM8J/4R/wb/g3/Cjvpi/8oXfN/RVJytkrkQVrFtA7dKZfc2Wg5ya9eui0IuzbK6yST2Kjiyc gt5lHgYtBysGurvYOo1Z387Y+v9yf766Pa7+yz3Pvv OxZ+2pzKaldm3V2vai9R26t0XP/n7LDr/DH/AH/AP+Af+p713w+y0v+Bf8G+fZ3/Mwcb06KZ/Sh92vwE TbQ52YITT1kS2ench0exuS/9scutt8995aab+2tJl71d/u/OHZ3DiwU7v2n/7E95u3k+0dW7ngpb7Set +jkJufQ+78RWYkz56r4b6qZz6F/dL0ENK2wZ/ulnEW 0T6u4Zn5wrG5RcMOfew/1Mjbm8q1B7+n/t0JI24gvJneF0/1qW+dgG45sl5565w+3ve5633XR4Nu+/yN 1Fe7yt/5fAb4F2u9o/b6gAx2IN8/5ydD7/td6R1qhP62S3B5cuO41acCN66j2IljX1+jGwiig8w6Re4Y it9XUV+51kqo5G7OuvCdlZ+S8vg6uG7eQ4k7k02b+z d/UIY/4A/4B/kxUIpb86Z8SrO/4F/wb/t14O46cr3xvRkc+y0L/Ke+nn9/3jiS0Le2FX5D0+EP+AP+Af +A/2H1N5UvmoQGA/wL/g3/dc4xl08pz//Ry7dGyREphUzH+y0r/Ar/qW/+I/INV67sk6OL796qk3/mvs 9i665e+l28fspbE/BP+Pz9i114qfVyv/l86tc9xru8 a5CcM4zNb43cJILuN+XfnHyV+uOfb70Hfo/+fPTzupYe3J/8iirYG3+95Qn/yVeZK46++pbh3/Dv6z/6 6luGX+AX+BX+U9+xm45H8jpBAEbwK36+OOtqR+9hmJuGhdrO3dknvig+Af+Af8J/6lvnXDj/gn/Dv6// 5Vk6b9Re4c4O2zp6nbx1QU+yBv6YshmB0w7h4frg+H 0Xft+Q10tc2576jvgJ81/bfo6+zvS10IB8k7Fjup8elCejp4c/XU8SmOP62NuIZ/739OY951TRent+h9 4x3zhIUrh5qfCljgUl7VcuIe1W/4J/w7+//mR26n6Pi/KkTT5TMHTr6Wcom5Dfv7/hD/gD/gH/gH/CP+ Ff8C/4N/yor6C+gvrm9+9vYM4MV+ZLvNH0KlBLLX8Q zEV4LsYNJG1BtWO7YiPPQD1KzGC1JiKN2/C4lGpgJ/RZ+Gng5Ec3kXY7YA9R1+F3+AP+gH/Af8cLI/XV W/7qqKHv+oV/e3fqht7J+irXv6W+ynLqq/ko4Xu1sMkgTNvkhpct/Iq/Z1zUbX92mlEU/P8wASYdM+e5 21UAyAYDd4/k1fT0vnoh4/D71dYtu3/eGKmvqizwC/ z6zT/Id29dxmEr/A6/f/ZXUA7Ck56oluy95+dIfVXl+dUJw6/eGKmvnvSf+lZ5w7+cook relief/XVT60pQC32yb [file] y3wM990D927fMZm8vqV/3227cPv/gas825+Vd+dn+B7599+flXn3/9vb0wum9h65att3/48NWkW73/+P zd2z98/eHti+/e3n/1lufBt83/6cnvDz8y02lrert3 q/dv796++vqD/9O71y+/+uyMPa9ht700/lT396c7Sz/7+FCJ2302/qsm9f8cWi58D/teGe4oEof1uhsv /fr9Z2//+Egw58lq2C20J3f6/+mv/8rP7m/g/bN/+s37r94+/btIv822gD3wmh7/+Jv7H96+/ofXL/Ml tvl2rU/U/u7nl/PDFjR2u83+/vwr4nv7vm502O/evZ 5stexbK4S4594++yv/rEfa252++ucf/+0Pf/nTD//69i//9fbdH/74x+//8pcfvv/d03413c7Kr/jhj2 ///D/a+ue//ub0H83muN+9Dco9o1918G/+39+sWzl8N4nl/44m00451e1Pm46F++A+/39s2Hj+ s3/w/HB7hG5C0//a1Z0im2fQl99pv1Hncu47nAo/sN m5X2Kzlft+q4nx57aSiWvz1LXu/82w+x4piZ01G5GgV/+Pzbj19/93l3M82+/w7dVu76Xj/Jcv/J/1ZJ /+r+5yzfKnL+q2+Yrybzq5+UtB/iBaFyPTv8EikkWe/+x9+//eX7//jhJ1d/rkFm0eFx+0d/4otybbHX 4//86gd+8+HtDz/+xw9/+T//4gFg6nwYr0y0eWcnJI 4/v/ph//jh27d//c/Xs//hzz/+/PJ+/t3PLh+XeNg/fncuH508SG/2rjP6GUakl+D0l5p6F/rplJ7//p UPt558o/1CyVojs/Suoyyfi533+MXHt+//7w///t+bz/Ktyd5Yk52/81q3tT7WZ2D43r8/+ee//dmvz3 v48vs//uT97p/QT7//z99//+9/+P7Hn/3/KWmTP/z4 8/9/WtS6/vgv//1/wlY49Jy//+mTd+994W6Erg/48+8/UZaUr+qJ+Ac3//jD7//Xj3/4/im7Zdh5m8nx n//WY43Eb//7E76Y0m9/iReUF948Hk+/o6TaNq8X/f3//BUypj04189liwkXx5v8zii0e3HFQ+rb+5fQ 8zb6fi7+nqW/tuy3xls//vDZ+a1mLI8jZ5Kv84cOK4 31rq/lcsz04x48CR2i/H+6O3SOYzXaMDI5jfIelUtdyxTvKllWCMwpQAQnYsm9GP9AwQHtACWoN0T4MG Nvwj1pLEXcRKDrbQVcIdPuPGFUYG4CyDKbFW7HEAp0VYWxTSKpVtFuZJPqhvS3FDXmUZCeLJIzP4Bwvy VudCAyIDAgUj4+AJ7dd3MpFzHlTBEmKrl5MY4HeWJf MT5EqPYtvM6hmkZpT831jgTxNOTwWazmj0TfIJuoCNFHUW6BNRQ9DGV3PYJpOp5+PU2nk3UaEiUyEYYs Wtk8JN6QcVHer9RdTG2DU1XlGYCjTKRZRPY0l2FqJCDlardsqttdF5PsYBE2rY3jTBC3PCKzCAklXRFj OFHuAAVsYwPmNSqpTUQtWJNtUMArIGHxPLe9wDFpCP 4JO6HbTZUhSEOBOWSbmvHhGt2fOQXUZ9jTKVNrLUASDTKlIzD4ZOx8KeblM5D7SsdsZ4RzPU5NG4ReHB WsQYWAMZKwbyUsQU0FtcBkdL3nCOaCLYZUDGrWBXwcRcT1j95xmkVKZGAoBVNjBZudASEvNZEtQURmQJ OjJVKdBXMcAUFhGG3GS3YbITFjIKILMBG6j7GbNQFg iawayzedMa2bsbShFjl+UrnxKQFkc4YpSHgtS7L0iNCfB2BhT8ZaUL9StJNeJXovYFCkPWPnVTWyD838 bnQgMT4+EY6ln3PsEtjiWNIZLNHpSCPwSDEqFVM5VmShWYXyAAGpHAVmQpY3FoGvPdYUOOCcNOS9YhY2 FDGkVFSsIOUdSOduFICyAAIbBNOcWOYkYEEdYP7kYk SxMAOlMbJtGpmzOEDzKQRhqfTWUUYjPDExBFLaGRX7DUSaDZKjEKotJXOzTOYgNEC0ASJsYIBtAU7hTw ZbIIRiOMHdAninGQUdIMCgbdPTVKBoKBQxJXO7MfRuSBGqUTLsDDecAPIvUHInYjj7ZJMbFAEdLI3mXd PnDICvXPD4BDubUTKsQCDdrwFDIGHcWTOhRWHaUpLd EXKvTSPtILpxPWSeHHTkIcZuKLAjEFCpZB4eMqDqLDNoSCU9SLSaLGWhHXRfpmXHRTMnWASqKDe7OUYx EFObDTTrEBrqDJNsUENzRMN0ZQQqHZBgOW1vLjVjVKThWOSpHHQvRYRnPVFslkVTXWSvGRFdIMH6OCGr IRAvIVGdIEqrVWNtIMQlUmz2QXNhAONoHR1zDaJhYO LkTPF8JCXzMOHyYFZcqxABTVSpQPD8PmlnPVIySWNvKTVjZKlkFRScKECbTfL3KCGtMGNpWR0qAjZoLU NoAEG9UsWwKTFjZSFtpdNIPNFtGSKwQLG9ElMgGBHoOMTzCEgjGAOqVDYqVOLuIQC6GTF1HBKoQoOqZK jfQTPPXAxMG2OdepJtElTYF9mfXg4yCdEpTMJEB1Uu i5EwWIAtMTYSTp5+DcB2NNC1iZTuOsm2GeHoYBjgABBSOu== ID Date Data Source [id number] 06/13/2020 05:11:00 PM EDT [facility] CYTOPATHOLOGY REPORTName: ADDISON ZUÑIGAMRN: [id number] Number: [id number] Date: 06/12/2020 13:22Received Date: 06/12/2020 15:41Physician(s): JOVANA CASTILLO MD DESAI, PARTH D,YORDY Copy To:SEKOU HENRY MDSpecimen(s) ReceivedA: ASCITIC FLUIDClinical [...] developed and their performance characteristics determined by [facility] Pathololgy department. They have not been cleared or approved by [place] Food and Drug Administration. The FDA has determined that suchclearance or approval is not necessary. Name Value Range Interpretation Code Description Data Laura rce(s) Supporting Document(s) ID Date Data Source [id number] 06/12/2020 10:47:34 AM EDT [facility] MR THORACIC SPINE WITHOUT CONTRAST [id number] FINAL RESULTInterpreted by:Buster Kathleen MDEXAMINATION: MR THORACIC SPINE WITHOUT IV CONTRAST [id number] INDICATION: T11 burst fx; eval for posterior [...] rce(s) Supporting Document(s) ID Date Data Source [id number] 06/12/2020 10:32:21 AM EDT [facility] XR CHEST FRONTAL ONLY [id number] RESULTI nterpreted by:Kina Biggs MDINDICATION: Evaluate fluid [...] rce(s) Supporting Document(s) ID Date Data Source [id number] 06/12/2020 02:18:39 PM [facility] Name Value Range Interpretation Code Description Data Laura rce(s) Supporting Document(s) Hepatitis C virus Ab [Presence] in Serum or Plasma by Immuno assay Non Reactive A [facility] Past or current Hepatitis C infection. Alphonso dahl forwarded to reference laboratory for quantitative HCV RNA testing. ID Date Data Source [id number] 06/12/2020 01:17:53 PM [facility] Name Value Range Interpretation Code Description Data Laura rce(s) Supporting Document(s) Albumin [Mass/volume] in Serum or Plasma by Bromocresol green (BCG) dye binding method 2.8 g/dL 3.5-5.2 [facility] Bilirubin.total [Mass/volume] in Serum or Plasma 5.1 mg/dL <1.2 H [facility] Calcium [Mass/volume] in Serum or Plasma 8.3 mg/dL 8.6-10.0 L [facility] Chloride [Moles/volume] in Serum or Plasma 95 mmol/L 98-107 L [facility] Creatinine [Mass/volume] in Serum or Plasma 1.63 mg/dL 0.70-1.20 H [facility] Icteric Glucose [Mass/volume] in Serum or Plasma 157 mg/dL 70-140 H [facility] Alkaline phosphatase [Enzymatic activity/volume] in Serum or Plasma 127 U/L 40-129 [facility] Potassium [Moles/volume] in Serum or Plasma 2.9 mmol/L 3.4-5.1 LL [facility] Results called to and read back by [facility] AT 1317 BY [id number] Protein [Mass/volume] in Serum or Plasma 6.8 g/dL 6.4-8.3 [facility] Sodium [Moles/volume] in Serum or Plasma 132 mmol/L 136-145 L [facility] Aspartate aminotransferase [Enzymatic activity/volume] in Serum or Plasma 33 U/L <40 [facility] Urea nitrogen [Mass/volume] in Serum or Plasma 34 mg/dL 6-20 H [facility] Osmolality of Serum or Plasma by calculation 285 mosm/kg 275-300 [facility] Creatinine/Urea nitrogen [Mass Ratio] in Serum or Plasma 21 [facility] Bicarbonate [Moles/volume] in Serum 28 mmol/L 22-29 [facility] Alanine aminotransferase [Enzymatic activity/volume] in Seru m or Plasma 25 U/L <41 [facility] Anion gap 3 in Serum or Plasma 9 mmol/L 8-15 [facility] Glomerular filtration rate/1.73 sq M pre dicted among non-blacks [Volume Rate/Area] in Serum or Plasma by Creatinine-based formula (MDRD) 45 mL/min/1.73m2 >60 L [facility] Glomerular filtration rate/1.73 sq M pre dicted among blacks [Volume Rate/Area] in Serum or Plasma by Creatinine-based formula (MDRD) 52 mL/min/1.73m2 >60 L [facility] ID Date Data Source [id number] 06/12/2020 01:17:53 PM EDT [facility] Name Value Range Interpretation Code Description Data Laura rce(s) Supporting Document(s) Magnesium [Mass/volume] in Serum or Plasma 1.4 mg/dL 1.6-2.6 L [facility] ID Date Data Source [id number] 06/12/2020 11:06:52 AM [facility] Name Value Range Interpretation Code Description Data Laura rce(s) Supporting Document(s) Hemoglobin A1c/Hemoglobin.total in Blood by HPLC 5.8 % 4.0-6.0 [facility] Confirmed(NOTE)<5.7% Average risk of diabetes(ADA)5.7-6.4% Increased risk of diabetes(ADA)>/= 6.5% Diagnostic for diabetes(ADA) Glucose mean value [Mass/volume] in Blood Estimated fr om glycated hemoglobin 118 mg/dL <126 [facility] Confirmed ID Date Data Source [id number] 06/12/2020 10:43:12 AM [facility] Center Name Value Range Interpretation Code Description Data Laura rce(s) Supporting Document(s) Ammonia [Moles/volume] in Plasma 134 umol/L 16-60 H [facility] ID Date Data Source [id number] 06/12/2020 09:45:16 AM [facility] CT CERVICAL SPINE WITHOUT CONTRAST [id number] FINAL RESULTInterpreted by:Buster Kathleen MDEXAMINATION: CT CERVICAL SPINE WITHOUT CONTRAST 30204, CT LUMBAR SPINE WITHOUT CONTRAST 31071, CT THORACIC SPINE WITHOUT CONTRAST [id number] INDICATION: Thoracic spine fx; evaluate for proximal [...] rce(s) Supporting Document(s) ID Date Data Source [id number] 06/12/2020 09:45:11 AM EDT [facility] CT LUMBAR SPINE WITHOUT CONTRAST [id number] NAL RESULTInterpreted by:Buster Kathleen MDEXAMINATION: CT CERVICAL SPINE WITHOUT CONTRAST 11215, CT LUMBAR SPINE WITHOUT CONTRAST 87331, CT THORACIC SPINE WITHOUT CONTRAST [id number] INDICATION: Thoracic spine fx; evaluate for proximal [...] rce(s) Supporting Document(s) ID Date Data Source [id number] 06/12/2020 09:45:11 AM EDT [facility] CT THORACIC SPINE WITHOUT CONTRAST [id number] FINAL RESULTInterpreted by:Buster Kathleen MDEXAMINATION: CT CERVICAL SPINE WITHOUT CONTRAST [address]0319, CT LUMBAR SPINE WITHOUT CONTRAST [address]21, CT THORACIC SPINE WITHOUT CONTRAST [id number] INDICATION: Thoracic spine fx; evaluate for proximal [...] rce(s) Supporting Document(s) ID Date Data Source [id number] 06/12/2020 09:41:25 AM [facility] Name Value Range Interpretation Code Description Data Laura rc(s) Supporting Document(s) [facility] ZNCVQk3uUkWISnMb62/TMReuUVWoq4OsSPniIZw5SEjkRCYyR1IbVNM1gF1sMUN4TNfLOdCuBbYgTGPr lbm [file] AgICAgICAgICAgICAgICAgICAgICAgICAgICAgICAgICAgICAgICAgICAgICAgICAgICAgICAgICAgIC AgICAgICAgICAgICAgICAgICAgICAgICAgICAgICAg ICAgICAgICANCiAgICAgICAgICAgICAgICAgICAgICAgICAgICAgICAgICAgICAgICAgICAgICAgICAg ICAgICAgICAgICAgICAgICAgICAgICAgICAgICAgICAgICAgICAgICAgICAgICAgICANCiAgICAgICAg ICAgICAgICAgICAgICAgICAgICAgICAgICAgICAgIC AgICAgICAgICAgICAgICAgICAgICAgICAgICAgICAgICAgICAgICAgICAgICAgICAgICAgICAgICAgIC ANCiAgICAgICAgICAgICAgICAgICAgICAgICAgICAgICAgICAgICAgICAgICAgICAgICAgICAgICAgIC AgICAgICAgICAgICAgICAgICAgICAgICAgICAgICAg ICAgICAgICAgICANCiAgICAgICAgICAgICAgICAgICAgICAgICAgICAgICAgICAgICAgICAgICAgICAg ICAgICAgICAgICAgICAgICAgICAgICAgICAgICAgICAgICAgICAgICAgICAgICAgICAgICANCiAgICAg ICAgICAgICAgICAgICAgICAgICAgICAgICAgICAgIC AgICAgICAgICAgICAgICAgICAgICAgICAgICAgICAgICAgICAgICAgICAgICAgICAgICAgICAgICAgIC AgICANCiAgICAgICAgICAgICAgICAgICAgICAgICAgICAgICAgICAgICAgICAgICAgICAgICAgICAgIC AgICAgICAgICAgICAgICAgICAgICAgICAgICAgICAg ICAgICAgICAgICAgICANCiAgICAgICAgICAgICAgICAgICAgICAgICAgICAgICAgICAgICAgICAgICAg ICAgICAgICAgICAgICAgICAgICAgICAgICAgICAgICAgICAgICAgICAgICAgICAgICAgICAgICANCiAg ICAgICAgICAgICAgICAgICAgICAgICAgICAgICAgIC AgICAgICAgICAgICAgICAgICAgICAgICAgICAgICAgICAgICAgICAgICAgICAgICAgICAgICAgICAgIC AgICAgICANCiAgICAgICAgICAgICAgICAgICAgICAgICAgICAgICAgICAgICAgICAgICAgICAgICAgIC AgICAgICAgICAgICAgICAgICAgICAgICAgICAgICAg ICAgICAgICAgICAgICAgICANCjw/aPStN7yezESmxmK3N5jbSo0RDh8BPV9rj6BuMOBdITrrixPkFekF XhTfNDPfRucNQvo4MRviRZ7TzIGyR4WfG7UzRVjzNV6ENAMjGXTmfVBdAZSeINDhHnA5YYSpTGobKR4P aWRzIFsgNSAwIFIgNyAwIFIgOSAwIFIgMTEgMCBSID UoEYMxCqQvTTqrBW4Br3RfuAQ6ETn+Qu2VSQ5te7YvKYbaVbAqHS5nks3GEBtDZsVvF5NfaiG9FKT2GH CvAq1LVJYdHHQqlODuAaYoJAOTUeOeC4EebR42TCGQVq9+SXlrarGuLulDDhG7LLUod6FnNZx8CH8LCB BiGQw3lKIrW97kl3SihGJrAwjmRyvabVZgXOWTXCFy cRglhnraenqsQVBpGRJgPT1xPB5mZYDwLYApGeFmIEQDUS2TIMMzHDKymCKwHSXvMOUOHG3VPClfQZB3 JROmhxEafLTyBXdsNL8VDPZwdoZuJoGkCRQYWQp+Tr5CDB8bg1LzCRsyNGNcHT5oet9WZRgUWxWsJ5K9 fQTtQ6O2BKfoEg9GPGHgENZhZlYuJVGLOKkyYP7ZRI 4houN1PO0DsNEzSDJdKKIdoCGtXOm0O62fuRCjMZfjLL2YXWM+Fady+Yh9QKUOwHGImNFLdTvGuEEAHDp MhU1JnC0OHt2IoS9XpBR83oTykidRtEAwaEY8SWV4lCDIhTWUQYS6SrONxrA1qgtTkUfTqCHOZNdPjK1 1ehCUjNZGeOBW8ALTfNl0VXPPfN5JgkeCqyPukbiPy QZFkVQBPYP9LFGfqrcOakSZbcUflXO54kYsfLE6KLr2VXkVaLE9jla0BfJRiKg5SWXDtEH2RTTDqHGEm HOQpFTF7AIFqLtDcYGqyJKDvEIRiRQF6WHNdYKMhXL9UScAtOHBoUmA0NjEbRZPpBBOnzo1SPUClCMDs PKAaGzOvHOJnJEMqNBpmTMLoDUZcMLF8WLAcIFYtEA 6KJkDdNZKpMDV4SYExAGRgINYvyf2TUMFjBWHnSZNsSMNiJZYySCUbSYjeXBDcMYO7DhV3WBCcVNItWE 4KYhTmIZYoRXR8EHItWRJgZBGtyi3YRTKqZBYtPJTgQFIfCGUfDQXpLDseNPQkNTO1UoZ0AOSyHWTyBW 5FJwLuBALyZWW3NuQzRWLvDVNtkm1FVPVuUDPkCrGx JmBzUWJqBKKkEWgzQUSpHLOuDfDiTOQoGPIuYQ9PAwTqBLRnKSA3BmcuZVAdKODval8JAFAiBWRtWEc1 KTWzEYFlHXZkDAivWPXnTQD4FLr5MSPrFSLkOB2FBqGhDQJsDERwAuluXSAtSBJhcy5EAZAiBBLaRpDw LNLdTLJqYHZaIUyjVQHiJWC8KmMdLHFbRJJxXJ2WWj HuCQDrLPN5GZliMZLnNZLfdn9CXXJbLUIgEpI9UhRdJYCzOLRoBPwcOVEpIAI1Ies1IXEuKXHhWG3QWp NyBEMnAZj5TjkyZIQlSBUotv0CPJVrMRInJKthJsIvSSZqWRUyVKzkIHAoQGN2XSK7JBZbJHRvGS1QAi NkBAEfRDzkNNumZYOyJTTgza2MIWEmUAZiAGR4TgCn BIMtNOMjANpkPALkLSYwFIPeMQEjKDXrCT5RDoAgOLYzUsIxEWptYHZeXHAouu7LRWJgRIEaLGH8PNRv OBDeJWYiWDneKXTdFSWoZKU9JLXiMBIeJV2JJoJmNCPaUbW7LJuyIITmKACdws5UFHMlKXAlUgFzLsNx ODWnBQTuNYspRJFqDZWnXOU5ILKePTRxCG1GJdBkUZ LlOjVoXmDuRNHwGSOule9HQUNxCOTvQIosSmTqEYFkMYJeYHyoQKLbWOT2Jun8CALnQGReWS4ZPmEiBX ZoBgF0QRQlIVDtCMMcsc3TwOHioUqjqe7SMHoLEg9JwFgzKWC7MJglCs7pnAQbUOGgFTODHq7NraBtED MkQNQCMLbmUARbNDr2WQEyQgSnGGB3BEqkQGh6FJjt JhBeGbY0HTX3NaD8OtN7CYb4RoOeOfX7Ktr8XDV0QoHcDOCuBUA0BLJuRDniHyp+AE4dDWq+Ta7Dr4Fj sqC0dnHtPLstPUD8HK0VIGNKN0DDLc== ID Date Data Source [id number] 06/12/2020 08:05:00 AM EDT [facility] Name Value Range Interpretation Code Description Data Laura rce(s) Supporting Document(s) SARS-CoV-2 RNA 2019 nCoV Real-Time RT-PCR: NOT DETECTED [facility] This lab was ordered by [facility] and reported by [facility]. ID Date Data Source [id number] 06/12/2020 09:42:27 AM EDT [facility] Name Value Range Interpretation Code Description Data Laura rce(s) Supporting Document(s) Specimen source [Identifier] of Unspecified specimen [facility] SARS-CoV-2 RNA 2019 nCoV Real-Time RT-PCR: NOT DETECTED [facility] Assay Performed [facility] Patients first test for [facility] Patient employed in healthcare setting [facility] Patient has symptoms related to [facility] When did you start to experience these symptoms [Date and time] [Phen X] [facility] Patient was hospitalized because of this condition [facility] patient was admitted to ICU for [facility] Patient resides in a congregate care setting [facility] status [facility] ID Date Data Source [id number] 06/12/2020 09:41:13 AM EDT [facility] Service Cmnt XXX-Imp : NoneRespiratory P CR Panel : PCR ResultsMicroorganism XXX Cult : See Labs Tab for 2019 nCoV RT-PCR resultsHAdV DNA QI BRYCE+non-probe : Not DetectedHCoV [id number] Nph QI BRYCE+non-probe : Not DetectedHCoV [id number] Nph QI BRYCE+non-probe : Not [id number] RNA Nph QI BRYCE+non-probe : Not [id number] RNA Upper resp QI BRYCE+probe : Not [...] DNA Nph Q BRYCE+non-probe : Not DetectedB [id number] DNA Nph BRYCE+non-probe : Not Detected Name Value Range Interpretation Code Description Data Laura rce(s) Supporting Document(s) ID Date Data Source [id number] 06/12/2020 02:51:36 AM EDT [facility] Name Value Range Interpretation Code Description Data Laura rce(s) Supporting Document(s) Albumin [Mass/volume] in Serum or Plasma by Bromocresol green (BCG) dye binding method 3.0 g/dL 3.5-5.2 L [facility] Bilirubin.total [Mass/volume] in Serum or Plasma 5.3 mg/dL <1.2 H [facility] Bilirubin.direct [Mass/volume] in Serum or Plasma 3.4 mg/dL <0.3 H [facility] Alkaline phosphatase [Enzymatic activity/volume] in Serum or Plasma 147 U/L 40-129 H [facility] Aspartate aminotransferase [Enzymatic activity/volume] in Serum or Plasma 40 U/L <40 H [facility] Alanine aminotransferase [Enzymatic activity/volume] in Seru m or Plasma 28 U/L <41 [facility] Protein [Mass/volume] in Serum or Plasma 7.5 g/dL 6.4-8.3 [facility] ID Date Data Source [id number] 06/12/2020 02:51:36 AM [facility] Name Value Range Interpretation Code Description Data Laura rce(s) Supporting Document(s) Lipase [Enzymatic activity/volume] in Serum or Plasma 46 U/L 13-6 0 [facility] ID Date Data Source [id number] 06/12/2020 02:51:36 AM [facility] Name Value Range Interpretation Code Description Data Laura rce(s) Supporting Document(s) Bicarbonate [Moles/volume] in Serum 29 mmol/L 22-29 [facility] Chloride [Moles/volume] in Serum or Plasma 92 mmol/L 98-107 L [facility] Creatinine [Mass/volume] in Serum or Plasma 1.58 mg/dL 0.70-1.20 H [facility] Icteric Glucose [Mass/volume] in Serum or Plasma 200 mg/dL 70-140 H [facility] Potassium [Moles/volume] in Serum or Plasma 3.1 mmol/L 3.4-5.1 L [facility] Sodium [Moles/volume] in Serum or Plasma 131 mmol/L 136-145 L [facility] Urea nitrogen [Mass/volume] in Serum or Plasma 35 mg/dL 6-20 H [facility] Anion gap 3 in Serum or Plasma 9 mmol/L 8-15 [facility] Osmolality of Serum or Plasma by calculation 285 mosm/kg 275-300 [facility] Creatinine/Urea nitrogen [Mass Ratio] in Serum or Plasma 22 [facility] Calcium [Mass/volume] in Serum or Plasma 9.1 mg/dL 8.6-10.0 [facility] Glomerular filtration rate/1.73 sq M pre dicted among non-blacks [Volume Rate/Area] in Serum or Plasma by Creatinine-based formula (MDRD) 46 mL/min/1.73m2 >60 L [facility] Glomerular filtration rate/1.73 sq M pre dicted among blacks [Volume Rate/Area] in Serum or Plasma by Creatinine-based formula (MDRD) 54 mL/min/1.73m2 >60 L [facility] ID Date Data Source [id number] 06/12/2020 03:09:33 AM [facility] Name Value Range Interpretation Code Description Data Laura rce(s) Supporting Document(s) Prothrombin time (PT) 19.6 s 12.5-14.9 H [facility] INR in Platelet poor plasma by Coagulation assay 1.63 [facility] Routine intensity oral anticoagulation I NR is typically 2.0-3.0. Target INR must be clinically individualized. ID Date Data Source [id number] 06/12/2020 04:48:12 AM [facility] Value Range Interpretation Code Description Data Laura rce(s) Supporting Document(s) Leukocytes [#/volume] in Blood by Automated count 10.4 10*3/uL 4-10 H [facility] Erythrocytes [#/volume] in Blood by Automated count 2.53 10*6/uL 4.6- 6.1 L [facility] Hemoglobin [Mass/volume] in Blood 8.9 g/dL 13.5-18 L [facility] Hematocrit [Volume Fraction] of Blood by Automated count 25.5 % 4 1-53 L [facility] Erythrocyte mean corpuscular volume [Entitic volume] b y Automated count 100.6 fL 80-96 H [facility] Erythrocyte mean corpuscular hemoglobin [Entitic mass] by Automated count 35.1 pg 27-33 H [facility] Erythrocyte mean corpuscular hemoglobin concentration [Mass/volume] by Automated count 34.9 g/dL 32.0-36.0 [facility] Erythrocyte distribution width [Ratio] by Automated count 16.0 % 11.5-14.5 H [facility] Platelets [#/volume] in Blood by Automated count 61 10*3/uL 150-400 L [facility] Differential cell count method - Blood [facility] Neutrophils/100 leukocytes in Blood by Automated count 90 % [facility] Lymphocytes/100 leukocytes in Blood by Automated count 3 % [facility] Monocytes/100 leukocytes in Blood by Automated count 5 % [facility] Eosinophils/100 leukocytes in Blood by Automated count 1 % [facility] Neutrophils [#/volume] in Blood by Automated count 9.40 10*3/uL 1.8-7 .0 H [facility] Lymphocytes [#/volume] in Blood by Automated count 0.30 10*3/uL 1.2-4 .0 L [facility] Monocytes [#/volume] in Blood by Automated count 0.50 10*3/uL 0-0.8 [facility] Eosinophils [#/volume] in Blood by Automated count 0.10 10*3/uL 0-0.5 [facility] Metamyelocytes/100 leukocytes in Blood by Manual count 1 % [facility] Metamyelocytes [#/volume] in Blood by Manual count 0.10 10*3/uL 0-0 H [facility] Macrocytes [Presence] in Blood by Light microscopy [facility] Anisocytosis [Presence] in Blood by Light [facility] Poikilocytosis [Presence] in Blood by Light microscopy [facility] Polychromasia [Presence] in Blood by Light [facility] Pappenheimer bodies [Presence] in Blood by Light [facility] ID Date Data Source [id number] 06/12/2020 10:51:23 AM [facility] Value Range Interpretation Code Description Data Laura rce(s) Supporting Document(s) Cobalamin (Vitamin B12) [Mass/volume] in Serum or Plasma 2 11-946 H [facility] ID Date Data Source [id number] 06/12/2020 10:51:23 AM [facility] Value Range Interpretation Code Description Data Laura rce(s) Supporting Document(s) Magnesium [Mass/volume] in Serum or Plasma 1.4 mg/dL 1.6-2.6 [facility] ID Date Data Source [id number] 06/12/2020 10:51:23 AM [facility] Value Range Interpretation Code Description Data Laura rce(s) Supporting Document(s) Phosphate [Mass/volume] in Serum or Plasma 3.3 mg/dL 2.5-4.5 [facility] ID Date Data Source [id number] 06/12/2020 10:51:23 AM [facility] Value Range Interpretation Code Description Data Laura rce(s) Supporting Document(s) Thyrotropin [Units/volume] in Serum or Plasma 1.640 u[IU]/mL 0.270-4. 200 [facility] ID Date Data Source [id number] 06/19/2020 08:08:27 AM EDT [facility] Name Value Range Interpretation Code Description Data Laura rce(s) Supporting Document(s) Thiamine [Moles/volume] in Blood 77.3 nmol/L 66.5-200.0 [facility] (NOTE)This test was developed and its pe rformance characteristicsdetermined by [facility]. It has not been cleared or approvedby the Food and Drug Administration.Performed At: [facility] [id number] New MD Ph:[phone] ID Date Data Source [id number] 06/12/2020 09:23:14 PM EDT [facility] Value Range Interpretation Code Description Data Laura rce(s) Supporting Document(s) HIV 1+2 Ab+HIV1 p24 Ag [Presence] in Serum or Plasma by Immu noassay Non Reactive [facility] Negative for HIV-1 p24 antigenand HIV-1/ HIV-2 antibodies. Nolaboratory evidence of HIVinfection. ID Date Data Source [id number] 06/12/2020 10:50:22 AM EDT [facility] Name Value Range Interpretation Code Description Data Laura rce(s) Supporting Document(s) Ethanol [Mass/volume] in Serum or Plasma Negative [facility] ID Date Data Source [id number] 06/12/2020 10:50:22 AM T [facility] Value Range Interpretation Code Description Data Laura rce(s) Supporting Document(s) Folate [Mass/volume] in Serum or Plasma 4.15 ng/mL >4.77 L [facility] ID Date Data Source [id number] 06/12/2020 12:49:00 AM EDT [facility] Patient: ADDISON ZUÑIGA [facility].VisitID: [id number] [place] [address] [phone], MRegistration Date/Time: 06/11/2020 16:24 Weight:83.9 kg (S). Height/Length:60 inches (S). BMI:36.1 PAST HISTORYProblems:Hypertension.Cirrhosis. Additional Surgeries:no known surgeries. Medications:Torsemide Oral 20 mg, daily, last dose today.Spironolactone Oral 25 mg, daily, last dose today.Metoprolol Tartrate Oral unk, daily, last dose unk.Pantoprazole Sodium Oral 40 mg, daily, last dose today. Allergies:No Known Drug Allergy. FAMILY HISTORYNo significant family medical history. (Electronically signed by Karla Viveros P.AReno 06/11/2020 19:09) Weight:83.9 kg (S). Height/Length:60 inches (S). BMI:36.1 PAST HISTORYProblems:Gastroesophageal Reflux Disease.Hypertension.Cirrhosis. Additional Surgeries:no known surgeries. Medications:Torsemide Oral 20 mg, daily, last dose today.Spironolactone Oral 25 mg, daily, last dose today.Metoprolol Tartrate Oral unk, daily, last dose unk.Pantoprazole Sodium Oral 40 mg, daily, last dose today. Allergies:No Known Drug Allergy. (Electronically signed by Leon Farooq, P.Chester 06/12/2020 00:31) Name Value Range Interpretation Code Description Data Laura rce(s) Supporting Document(s) ID Date Data Source [id number] 06/11/2020 10:24:00 PM EDT [facility] Name Value Range Interpretation Code Description Data Laura rce(s) Supporting Document(s) COVID-19 NEGATIVE [facility] This lab was ordered by [facility] and reported by [facility]. ID Date Data Source [id number] 06/11/2020 10:45:00 PM EDT [facility] mariana TSYSORDER [id number] Name Value Range Interpretation Code Description Data Laura rce(s) Supporting Document(s) COVID-19 NEGATIVE NEGATIVE [facility] Negative results should be treated as pr [...] are for the indentification of SARS-CoV-2 RNA. MsyVOMA-BfL-6 RNA is generally detectable in respiratorysamples during the actue phase of infection. ID Date Data Source [id number] 06/11/2020 08:41:00 PM EDT [facility] TSYSORDER [id number] Name Value Range Interpretation Code Description Data Laura rce(s) Supporting Document(s) URINE RBC 1-3 /hpf 0-3 [facility] URINE WBC 0-2 /hpf 0-5 [facility] ID Date Data Source [id number] 06/11/2020 08:29:00 PM EDT [facility] TSYSORDER [id number] Name Value Range Interpretation Code Description Data Laura rce(s) Supporting Document(s) URINE COLOR. [facility] URINE APPEARANCE CLEAR [facility] URINE GLUCOSE (UA) NEGATIVE mg/dL NEGATIVE [facility] URINE BILIRUBIN NEGATIVE NEGATIVE [facility] URINE KETONE NEGATIVE mg/dL NEGATIVE [facility] al SPECIFIC GRAVITY,URINE 1.015 1.005-1.030 [facility] URINE BLOOD TRACE NEGATIVE H [facility] PH,URINE 6.0 5.0-9.0 [facility] URINE PROTEIN NEGATIVE mg/dL NEGATIVE [facility] URINE UROBILINOGEN 4 mg/dL 0-1 H [facility] URINE NITRATE NEGATIVE NEGATIVE [facility] URINE LEUKOCYTE ESTERASE NEGATIVE NEGATIVE [facility] ID Date Data Source [id number] 06/11/2020 07:39:00 PM EDT [facility] DATE OF EXAMINATION: 06/11/2020 17:37 EDT CHEST [...] rce(s) Supporting Document(s) ID Date Data Source [id number] 06/11/2020 07:36:00 PM EDT [facility] DATE OF EXAMINATION: 06/11/2020 17:38 EDT L [...] rce(s) Supporting Document(s) ID Date Data Source [id number] 06/11/2020 07:28:00 PM EDT [facility] DATE OF EXAMINATION: 06/11/2020 17:38 EDT ABD/PEL [...] rce(s) Supporting Document(s) ID Date Data Source [id number] 06/11/2020 06:38:00 PM EDT [facility] TSYSORDER [id number] Name Value Range Interpretation Code Description Data Laura rce(s) Supporting Document(s) TSH 1.670 uIU/mL 0.360-3.740 [facility] ID Date Data Source [id number] 06/11/2020 06:37:00 PM EDT [facility] TSYSORDER [id number] Name Value Range Interpretation Code Description Data Laura rce(s) Supporting Document(s) MAGNESIUM 1.4 mg/dL 1.8-2.4 [facility] ID Date Data Source [id number] 06/11/2020 06:37:00 PM EDT [facility] TSYSORDER [id number] Name Value Range Interpretation Code Description Data Laura rce(s) Supporting Document(s) TROPONIN I < 0.017 ng/mL 0.000-0.056 [facility] ID Date Data Source [id number] 06/11/2020 06:37:00 PM EDT [facility] TSYSORDER [id number] Name Value Range Interpretation Code Description Data Laura rce(s) Supporting Document(s) CREATINE PHOSPHOKINASE 44 U/L 39-308 [facility]ital ID Date Data Source [id number] 06/11/2020 06:37:00 PM EDT [facility] TSYSORDER [id number] Name Value Range Interpretation Code Description Data Laura rce(s) Supporting Document(s) LIPASE 132 U/L 73-393 [facility] ID Date Data Source [id number] 06/11/2020 06:37:00 PM EDT [facility] TSYSORDER [id number] Name Value Range Interpretation Code Description Data Laura rce(s) Supporting Document(s) GLUCOSE 192 mg/dL 74-106 H [facility] BLOOD UREA NITROGEN 39 mg/dL 7-18 H [facility] ital CREATININE 1.72 mg/dL 0.7-1.3 H [facility] SODIUM 130 mmol/L 136-145 L [facility] POTASSIUM 3.0 mmol/L 3.5-5.1 L [facility] CHLORIDE 93 mmol/L 98-107 L [facility] CO2 30 mmol/L 21-32 [facility] CALCIUM 9.1 mg/dL 8.5-10.1 [facility] ANION GAP 7.0 mmol/L 5-12 [facility] GLOMERULAR FILTRATION RATE 41 mL/min [facility] GFR IS CALCULATED IN mL/min/1.73m2 HEIDE L FUNCTION: >90MILDLY DECREASED: 60-89MILDY TO MODERATELY DECREASED: 45-59 MODERATELY TO SEVERELY DECREASED: 30-44SEVERELY DECREASED: 15-29RENAL FAILURE: <15 AST 51 U/L 15-37 H [facility] ALT 35 U/L 12-78 [facility] ALKALINE PHOSPHATASE 145 U/L 46-116 H [facility] TOTAL BILIRUBIN 4.6 mg/dL 0.2-1.0 H [facility] TOTAL PROTEIN 7.3 g/dl 6.4-8.2 [facility] ALBUMIN 2.4 gm/dL 3.4-5.0 L [facility] ID Date Data Source [id number] 06/11/2020 06:34:00 PM EDT [facility] TSYSORDER [id number] Name Value Range Interpretation Code Description Data Laura rce(s) Supporting Document(s) PARTIAL THROMBOPLASTIN TIME 22.5 SECONDS 21.2-27.3 [facility] ID Date Data Source [id number] 06/11/2020 06:34:00 PM T [facility] TSYSORDER [id number] Name Value Range Interpretation Code Description Data Laura rce(s) Supporting Document(s) PROTHROMBIN TIME (PATIENT) 15.3 SECONDS 9.1-11.6 H [facility] INR 1.48 0.87-1.06 H [facility] ID Date Data Source [id number] 06/11/2020 06:08:00 PM [facility] TSYSORDER [id number] Name Value Range Interpretation Code Description Data Laura rce(s) Supporting Document(s) WHITE BLOOD COUNT 11.3 K/mm3 4.0-10.0 H [facility] mariana RED BLOOD COUNT 2.41 M/mm3 4.50-6.00 L [facility] HEMOGLOBIN 8.2 gm/dL 14.0-18.0 [facility] HEMATOCRIT 23.4 % 42.0-54.0 [facility] MEAN CELL VOLUME 97.1 fl 80-96 H [facility] MEAN CORPUSCULAR HEMOGLOBIN 34.0 pg 27.0-31.0 H [facility] MEAN CORPUSCULAR HGB CONC 35.0 g/dl 32.0-36.0 [facility] RED CELL DISTRIBUTION WIDTH 16.3 % 10.0-14.5 H [facility] PLATELET COUNT 60 K/mm3 172-450 L [facility] MEAN PLATELET VOLUME 10.3 fl 9.0-13.0 [facility] pital GRAN % 77.0 % 50-80.0 [facility] IG% 1.2 % 0.0-0.2 H [facility] LYMPH % 5.1 % 25.0-50.0 L [facility] MONO % 15.8 % 2.0-10.0 H [facility] EOS % 0.6 % 0-5.0 [facility] BASO % 0.3 % 0.0-2.0 [facility] GRAN # 8.7 K/mm3 2.0-8.00 H [facility] IG# 0.1 K/mm3 0.0-0.2 [facility] LYMPH # 0.6 K/mm3 1.0-5.0 L [facility] MONO # 1.8 K/mm3 0.10-1.20 H [facility] EOS # 0.1 K/mm3 0.0-0.5 [facility] BASO # 0.0 K/mm3 0.0-0.2 [facility] ID Date Data Source [id number] 06/11/2020 07:30:00 PM EDT [facility] TSYSORDER [id number] Name Value Range Interpretation Code Description Data Laura rce(s) Supporting Document(s) BLOOD TYPE ABO AB [facility] RH TYPE POSITIVE [facility] ANTIBODY SCREEN NEGATIVE [facility] CROSSMATCH COMPATIBLE [facility] SEE TRANSFUSION RECORD IN LABUNITS ALINA HERMAN FOR TRANSFUSION ID Date Data Source [id number] 06/11/2020 07:03:00 PM EDT [facility] T[facility] [id number] Name Value Range Interpretation Code Description Data Laura rce(s) Supporting Document(s) DIRECT BILIRUBIN 3.6 mg/dL 0-0.2 *[facility] ID Date Data Source [id number] 04/05/2020 01:51:00 PM EST [facility] FASTING: UNKNOWNReceived: 04/05/2020 at 03:40:00 QPT: [facility], [address], [address] [place] [address], [phone], Ryan Brown MD Received: 04/05/2020 at 03:40:00 QPT : [facility], [address], [address] [place], [phone], Ryan Brown MD Name Value Range Interpretation [...] is approximately 13% higher for peopleidentified as -Cypriot. Glomerular filtration rate/1.73 sq M.pre dicted [Volume [...] results) [facility] ID Date Data Source [id number] 04/05/2020 01:51:00 PM EST [facility] FASTING: UNKNOWNReceived: 04/05/2020 at 03:40:00 QPT: [facility], [address], [address] [place], [address], Ryan Brown MD Received: 04/05/2020 at 03:40:00 QPT : [facility], [address], [address] [place], [phone], Ryan Brown MD Name Value Range Interpretation [...] mean volume [Entitic volume] in Blood by Ollie 11. 7 fL 7.5-12.5 Normal (applies to non-numeric results) [facility] ID Date Data Source [id number] 02/08/2020 08:48:00 AM EST [facility] [...] the right epididymisis seen which may be event representative of calcified granuloma. Similar appearingstructure measuring 0.5 cm also identified. IMPRESSION: 7 x 12 cm fluid collection superior to the left testicle extending to the levelof the inguinal canal as well as 2 echogenic calcified appearing foci of rightepididymis likely event representative of granulomas. These findings warrant urologyconsult. Electronically signed in [id number] by: Stephen Roman M.D. 02/08/2020 8:43 EST Name Value Range Interpretation Code Description Data Laura rce(s) Supporting Document(s) ID Date Data Source [id number] 02/08/2020 08:35:00 AM EST [facility] [...] rce(s) Supporting Document(s) ID Date Data Source [id number] 01/22/2020 07:05:00 PM EST [facility] Name Value Range Interpretation Code Description Data Laura rce(s) Supporting Document(s) Hepatitis C Quantitation HCV Not Detected IU/mL [facility] HCV log10 [facility] Unable to calculate result since non-num karla result obtained forcomponent test. Test Information: [facility] The quantitative range of this assay is 15 IU/mL to 100 million IU/mL. HCV Genotype [facility] Not indicated ID Date Data Source [id number] 11/29/2019 10:00:00 AM EDT [facility] Name Value Range Interpretation Code Description Data Laura rce(s) Supporting Document(s) SARS coronavirus 2 RNA [facility] This lab was ordered by [facility] and reported by [facility]. Procedure Social History Code Duration Value Status Description Data Source(s ) Smoking 12/06/2020 12:00:00 AM EDT Current Smoker completed Curre nt Smoker eCW1 ([facility]) Smoking 12/06/2020 12:00:00 AM EDT Current Smoker completed Curre nt Smoker eCW1 ([facility]) Alcohol intake 12/03/2020 12:00:00 AM EDT Current drinker of al cohol (finding) completed Current drinker of alcohol (finding) [facility] Smoking 10/24/2020 12:00:00 AM EDT Current Smoker completed Curre nt Smoker eCW1 ([facility]) Smoking 10/24/2020 12:00:00 AM EDT Current Smoker completed Curre nt Smoker eCW1 ([facility]) Smoking 10/24/2020 12:00:00 AM EDT Current Smoker completed Curre nt Smoker eCW1 ([facility]) Smoking 10/24/2020 12:00:00 AM EDT Current Smoker completed Curre nt Smoker eCW1 ([facility]) Smoking 10/24/2020 12:00:00 AM EDT Current Smoker completed Curre nt Smoker eCW1 ([facility]) Smoking 10/24/2020 12:00:00 AM EDT Current Smoker completed Curre nt Smoker eCW1 ([facility]) Smoking 10/24/2020 12:00:00 AM EDT Current Smoker completed Curre nt Smoker eCW1 ([facility]) Smoking 09/11/2020 12:00:00 AM EDT Current Smoker completed Curre nt Smoker eCW1 ([facility]) Smoking 09/11/2020 12:00:00 AM EDT Current Smoker completed Curre nt Smoker eCW1 ([facility]) Smoking 09/11/2020 12:00:00 AM EDT Current Smoker completed Curre nt Smoker eCW1 ([facility]) Smoking 09/11/2020 12:00:00 AM EDT Current Smoker completed Curre nt Smoker eCW1 ([facility]) Smoking 09/11/2020 12:00:00 AM EDT Current Smoker completed Curre nt Smoker eCW1 ([facility]) Smoking 09/11/2020 12:00:00 AM EDT Current Smoker completed Curre nt Smoker eCW1 ([facility]) Smoking 09/11/2020 12:00:00 AM EDT Current Smoker completed Curre nt Smoker eCW1 ([facility]) Alcohol intake 09/07/2020 12:00:00 AM EDT Ex-drinker (finding) comp leted Ex- drinker (finding) [facility] Tobacco use and exposure 09/07/2020 12:00:00 AM EDT Never used co mpleted Never used [facility] Smoking 09/07/2020 12:00:00 AM EDT Current every day smoker co mpleted Current every day smoker [facility] Alcohol intake 09/03/2020 12:00:00 AM EDT Current drinker of al cohol (finding) completed Current drinker of alcohol (finding) [facility] Smoking 08/14/2020 12:00:00 AM EDT Current Smoker completed Curre nt Smoker eCW1 ([facility]) Smoking 08/14/2020 12:00:00 AM EDT Current Smoker completed Curre nt Smoker eCW1 ([facility]) Smoking 08/14/2020 12:00:00 AM EDT Current Smoker completed Curre nt Smoker eCW1 ([facility]) Smoking 08/14/2020 12:00:00 AM EDT Current Smoker completed Curre nt Smoker eCW1 ([facility]) Smoking 08/14/2020 12:00:00 AM EDT Current Smoker completed Curre nt Smoker eCW1 ([facility]) Smoking 08/07/2020 12:00:00 AM EDT Current Smoker completed Curre nt Smoker eCW1 ([facility]) Smoking 07/31/2020 12:00:00 AM EDT Current Smoker completed Curre nt Smoker eCW1 ([facility]) Smoking 07/31/2020 12:00:00 AM EDT Current Smoker completed Curre nt Smoker eCW1 ([facility]) Smoking 07/25/2020 12:00:00 AM EDT Current Smoker completed Curre nt Smoker eCW1 ([facility]) Smoking 07/25/2020 12:00:00 AM EDT Current Smoker completed Curre nt Smoker eCW1 ([facility]) Alcohol intake 07/15/2020 12:00:00 AM EDT Ex-drinker (finding) comp leted Ex- drinker (finding) [facility] Smoking 07/04/2020 12:00:00 PM EDT Tobacco smoki ng consumption unknown (finding) completed Unknown If Ever Smoked [facility] ([facility]) Alcohol intake 07/04/2020 12:00:00 AM EDT Current drinker of al cohol (finding) completed Current drinker of alcohol (finding) [facility] Alcohol intake 06/12/2020 12:00:00 AM EDT Current drinker of al cohol (finding) completed Current drinker of alcohol (finding) [facility] Tobacco use and exposure 03/15/2020 12:00:00 AM EST Never used co mpleted Never used [facility] Cigarettes smoked current (pack per day) - Reported 03/15/19 12:00:00 AM EST UNK completed [facility] Smoking 03/15/2020 12:00:00 AM EST Current every day smoker co mpleted Current every day smoker [facility] Alcohol intake 03/15/2020 12:00:00 AM EST Yes completed [facility] Smoking 03/15/2020 12:00:00 AM EST Current every day smoker co mpleted Current every day smoker [facility] Smoking 03/02/2020 12:00:00 AM EST Current Smoker completed Curre nt Smoker eCW1 ([facility]) Smoking 03/02/2020 12:00:00 AM EST Current Smoker completed Curre nt Smoker eCW1 ([facility]) Smoking 01/24/2020 12:00:00 AM EST Current Smoker completed Curre nt Smoker eCW1 ([facility]) Smoking 01/24/2020 12:00:00 AM EST Current Smoker completed Curre nt Smoker eCW1 ([facility]) Smoking 01/24/2020 12:00:00 AM EST Current Smoker completed Curre nt Smoker eCW1 ([facility]) Smoking 01/24/2020 12:00:00 AM EST Current Smoker completed Curre nt Smoker eCW1 ([facility]) Smoking 01/24/2020 12:00:00 AM EST Current Smoker completed Curre nt Smoker eCW1 ([facility]) Smoking 01/13/2020 12:00:00 AM EST Current Smoker completed Curre nt Smoker eCW1 ([facility]) Vital Signs ID Date Data Source UNK Name Value Range Interpretation Code Description Data Source(s) [place] body weight 130 [lb_av] 130 [lb_av] MEDEN T ([facility]) Body mass index (BMI) [Ratio] 30.2 kg/m2 30.2 k g/m2 [facility] ([facility]) Body weight 79.834 kg 79.834 kg [facility] ([facility]) Body surface area Derived from formula 1.85 m2 1.85 m2 [facility] ([facility]) Systolic blood pressure 131 mm[Hg] 131 mm[Hg] M EDENT ([facility]) Diastolic blood pressure 75 mm[Hg] 75 mm[Hg] MEDENT ([facility]) Body height 64 [in_i] 64 [in_i] [facility] ([facility]) 5'4" Body weight 176.00 [lb_av] 176.00 [lb_av] MEDEN T ([facility]) Body weight 195 [lb_av] 195 [lb_av] eCW1 ([facility]) Body height 65 [in_i] 65 [in_i] eCW1 ([facility]) Body mass index (BMI) [Ratio] 32.45 kg/m2 32.45 kg/m2 W1 ([facility]) Heart rate 95 /min 95 /min eCW1 ([facility]) Respiratory rate 19 /min 19 /min W1 ([facility]) Body temperature 98 [degF] 98 [degF] eCW1 ([facility]) Systolic blood pressure 123 mm[Hg] 123 mm[Hg] e CW1 ([facility]) Diastolic blood pressure 80 mm[Hg] 80 mm[Hg] eCW1 ([facility]) Systolic blood pressure 106 mm[Hg] 106 mm[Hg] [facility] Diastolic blood pressure 68 mm[Hg] 68 mm[Hg] [facility] Body mass index (BMI) [Ratio] 33.07 kg/m2 33.07 kg/m2 [facility] Oxygen saturation in Arterial blood by Pulse oximetry 99 % 99 % [facility] Heart rate 84 /min 84 /min [facility] Respiratory rate 19 /min 19 /min [facility] Body height 154.9 cm 154.9 cm [facility] Body weight 79.379 kg 79.379 kg [facility] Body weight 195.8 [lb_av] 195.8 [lb_av] eCW1 ([facility]) Body height 65 [in_i] 65 [in_i] eCW1 ([facility]) Body mass index (BMI) [Ratio] 32.58 kg/m2 32.58 kg/m2 eCW1 ([facility]) Heart rate 84 /min 84 /min eCW1 ([facility]) Respiratory rate 20 /min 20 /min eCW1 ([facility]) Body temperature 97.8 [degF] 97.8 [degF] eCW1 ( [facility]) Systolic blood pressure 112 mm[Hg] 112 mm[Hg] e CW1 ([facility]) Diastolic blood pressure 70 mm[Hg] 70 mm[Hg] eCW1 ([facility]) Body weight 208 [lb_av] 208 [lb_av] eCW1 ([facility]) Body height 65 [in_i] 65 [in_i] eCW1 ([facility]) Body mass index (BMI) [Ratio] 34.61 kg/m2 34.61 kg/m2 eCW1 ([facility]) Heart rate 76 /min 76 /min eCW1 ([facility]) Respiratory rate 18 /min 18 /min eCW1 ([facility]) Body temperature 98 [degF] 98 [degF] eCW1 ([facility]) Systolic blood pressure 105 mm[Hg] 105 mm[Hg] e CW1 ([facility]) Diastolic blood pressure 68 mm[Hg] 68 mm[Hg] eCW1 ([facility]) Systolic blood pressure 136 mm[Hg] 136 mm[Hg] [facility] Diastolic blood pressure 72 mm[Hg] 72 mm[Hg] [facility] Heart rate 81 /min 81 /min [facility] Body height 157.5 cm 157.5 cm [facility] Body weight 95.709 kg 95.709 kg [facility] Body mass index (BMI) [Ratio] 38.59 kg/m2 38.59 kg/m2 [facility] Oxygen saturation in Arterial blood by Pulse oximetry 99 % 99 % [facility] Body weight 223.8 [lb_av] 223.8 [lb_av] eCW1 ([facility]) Heart rate 94 /min 94 /min eCW1 ([facility]) Respiratory rate 22 /min 22 /min eCW1 ([facility]) Body temperature 97.8 [degF] 97.8 [degF] eCW1 ( [facility]) Systolic blood pressure 151 mm[Hg] 151 mm[Hg] e CW1 ([facility]) Diastolic blood pressure 100 mm[Hg] 100 mm[Hg] eCW1 ([facility]) Body height 65 [in_i] 65 [in_i] eCW1 ([facility]) Body mass index (BMI) [Ratio] 37.24 kg/m2 37.24 kg/m2 eCW1 ([facility]) Body height 65 [in_i] 65 [in_i] eCW1 ([facility]) Body weight 214 [lb_av] 214 [lb_av] eCW1 ([facility]) Body mass index (BMI) [Ratio] 35.61 kg/m2 35.61 kg/m2 eCW1 ([facility]) Heart rate 110 /min 110 /min eCW1 ([facility]) Respiratory rate 18 /min 18 /min eCW1 ([facility]) Body temperature 98.1 [degF] 98.1 [degF] eCW1 ( [facility]) Systolic blood pressure 132 mm[Hg] 132 mm[Hg] e CW1 ([facility]) Diastolic blood pressure 70 mm[Hg] 70 mm[Hg] eCW1 ([facility]) Body height 65 [in_i] 65 [in_i] eCW1 ([facility]) Body weight 214 [lb_av] 214 [lb_av] eCW1 ([facility]) Body mass index (BMI) [Ratio] 35.61 kg/m2 35.61 kg/m2 eCW1 ([facility]) Heart rate 79 /min 79 /min eCW1 ([facility]) Respiratory rate 18 /min 18 /min eCW1 ([facility]) Body temperature 97.9 [degF] 97.9 [degF] eCW1 ( [facility]) Systolic blood pressure 111 mm[Hg] 111 mm[Hg] e CW1 ([facility]) Diastolic blood pressure 74 mm[Hg] 74 mm[Hg] eCW1 ([facility]) Body weight 205.8 [lb_av] 205.8 [lb_av] eCW1 ([facility]) Body height 65 [in_i] 65 [in_i] eCW1 ([facility]) Body mass index (BMI) [Ratio] 34.24 kg/m2 34.24 kg/m2 eCW1 ([facility]) Heart rate 91 /min 91 /min eCW1 ([facility]) Respiratory rate 19 /min 19 /min eCW1 ([facility]) Body temperature 97.9 [degF] 97.9 [degF] eCW1 ( [facility]) Systolic blood pressure 130 mm[Hg] 130 mm[Hg] e CW1 ([facility]) Diastolic blood pressure 77 mm[Hg] 77 mm[Hg] eCW1 ([facility]) Systolic blood pressure 108 mm[Hg] 108 mm[Hg] [facility] Diastolic blood pressure 72 mm[Hg] 72 mm[Hg] [facility] Heart rate 76 /min 76 /min [facility] Body height 152.4 cm 152.4 cm [facility] Body weight 84.823 kg 84.823 kg [facility] Body mass index (BMI) [Ratio] 36.52 kg/m2 36.52 kg/m2 [facility] Oxygen saturation in Arterial blood by Pulse oximetry 100 % 100 % [facility] Body weight 190 [lb_av] 190 [lb_av] eCW1 ([facility]) Diastolic blood pressure 82 mm[Hg] 82 mm[Hg] eCW1 ([facility]) Body height 65 [in_i] 65 [in_i] eCW1 ([facility]) Body mass index (BMI) [Ratio] 31.61 kg/m2 31.61 kg/m2 [facility] ([facility]) Heart rate 96 /min 96 /min eCW1 ([facility]) Respiratory rate 20 /min 20 /min eCW1 ([facility]) Systolic blood pressure 138 mm[Hg] 138 mm[Hg] e CW1 ([facility]) Body weight [lb_av] eCW1 ([facility]) Body height 65 [in_i] 65 [in_i] eCW1 ([facility]) Body mass index (BMI) [Ratio] 31.45 kg/m2 31.45 kg/m2 eCW1 ([facility]) Heart rate 105 /min 105 /min eCW1 ([facility]) Respiratory rate 20 /min 20 /min eCW1 ([facility]) Body temperature 99.7 [degF] 99.7 [degF] eCW1 ( [facility]) Systolic blood pressure 129 mm[Hg] 129 mm[Hg] e CW1 ([facility]) Diastolic blood pressure 86 mm[Hg] 86 mm[Hg] eCW1 ([facility]) Systolic blood pressure 123 mm[Hg] 123 mm[Hg] e CW1 ([facility]) Body weight 189 [lb_av] 189 [lb_av] eCW1 ([facility]) Body height 65 [in_i] 65 [in_i] eCW1 ([facility]) Body mass index (BMI) [Ratio] 31.45 kg/m2 31.45 kg/m2 eCW1 ([facility]) Heart rate 132 /min 132 /min eCW1 ([facility]) Respiratory rate 20 /min 20 /min eCW1 ([facility]) Body temperature 98.6 [degF] 98.6 [degF] eCW1 ( [facility]) Diastolic blood pressure 85 mm[Hg] 85 mm[Hg] eCW1 ([facility]) ID Date Data Source [id number] 07/27/2020 11:43:38 AM EDT [facility] Name Value Range Interpretation Code Description Data Source(s) WEIGHT RECORDED 200 lb 200 lb [facility] Body height Measured 62 in 62 in [facility] TRANSFER FROM [facility] ID Date Data Source [id number] 06/20/2020 04:42:49 PM EDT [facility] Name Value Range Interpretation Code Description Data Source(s) WEIGHT RECORDED 199.08 lb 199.08 lb [facility] WEIGHT RECORDED 180 lb 180 lb [facility] Body height Measured 62 in 62 in [facility] TRANSFER FROM [facility] Patient Treatment Plan of Care Planned Activity Planned Date Details Description Data Source (s) Potassium Chloride 10 MEQ Extended Release Oral Tablet 12/09/2020 12:00:00 AM EDT eCW1 ([facility]) Potassium Chloride 10 MEQ Extended Release Oral Tablet 12/09/2020 12:00:00 AM EDT eCW1 ([facility]) Hydroxyzine Hydrochloride 25 MG Oral Tablet 2020 12:00:00 AM EDT [facility] Hydroxyzine Hydrochloride 25 MG Oral Tablet 2020 12:00:00 AM EDT eCW1 ([facility]) Hydroxyzine Hydrochloride 25 MG Oral Tablet 2020 12:00:00 AM EDT eCW1 ([facility]) Hydroxyzine Hydrochloride 25 MG Oral Tablet 2020 12:00:00 AM EDT eCW1 ([facility]) Hydroxyzine Hydrochloride 25 MG Oral Tablet 2020 12:00:00 AM EDT eCW1 ([facility]) Hydroxyzine Hydrochloride 25 MG Oral Tablet 2020 12:00:00 AM EDT eCW1 ([facility]) Hydroxyzine Hydrochloride 25 MG Oral Tablet 2020 12:00:00 AM EDT eCW1 ([facility]) torsemide 20 MG Oral Tablet 10/02/2020 12:00:00 AM EDT [facility] torsemide 20 MG Oral Tablet 09/03/2020 12:00:00 AM EDT [facility] torsemide 20 MG Oral Tablet 09/03/2020 12:00:00 AM [facility] Furosemide 20 MG Oral Tablet 08/17/2020 12:00:00 AM EDT [facility] carvedilol 12.5 MG Oral Tablet 08/14/2020 12:00:00 AM EDT eCW1 ([facility]) carvedilol 12.5 MG Oral Tablet 08/14/2020 12:00:00 AM EDT eCW1 ([facility]) carvedilol 12.5 MG Oral Tablet 08/14/2020 12:00:00 AM EDT eCW1 ([facility]) carvedilol 12.5 MG Oral Tablet 08/14/2020 12:00:00 AM EDT eCW1 ([facility]) carvedilol 12.5 MG Oral Tablet 08/14/2020 12:00:00 AM EDT eCW1 ([facility]) carvedilol 12.5 MG Oral Tablet 08/14/2020 12:00:00 AM EDT eCW1 ([facility]) carvedilol 12.5 MG Oral Tablet 08/14/2020 12:00:00 AM EDT eCW1 ([facility]) carvedilol 12.5 MG Oral Tablet 08/14/2020 12:00:00 AM EDT [facility] carvedilol 12.5 MG Oral Tablet 08/14/2020 12:00:00 AM EDT eCW1 ([facility]) carvedilol 12.5 MG Oral Tablet 08/14/2020 12:00:00 AM EDT eCW1 ([facility]) carvedilol 12.5 MG Oral Tablet 08/14/2020 12:00:00 AM EDT eCW1 ([facility]) carvedilol 12.5 MG Oral Tablet 08/14/2020 12:00:00 AM EDT eCW1 ([facility]) carvedilol 12.5 MG Oral Tablet 08/14/2020 12:00:00 AM EDT eCW1 ([facility]) carvedilol 12.5 MG Oral Tablet 08/14/2020 12:00:00 AM EDT eCW1 ([facility]) carvedilol 12.5 MG Oral Tablet 08/14/2020 12:00:00 AM EDT eCW1 ([facility]) carvedilol 12.5 MG Oral Tablet 08/14/2020 12:00:00 AM EDT eCW1 ([facility]) carvedilol 12.5 MG Oral Tablet 08/14/2020 12:00:00 AM EDT eCW1 ([facility]) carvedilol 12.5 MG Oral Tablet 08/14/2020 12:00:00 AM EDT eCW1 ([facility]) carvedilol 12.5 MG Oral Tablet 08/14/2020 12:00:00 AM EDT eCW1 ([facility]) carvedilol 12.5 MG Oral Tablet 08/14/2020 12:00:00 AM EDT eCW1 ([facility]) 24 HR Nicotine 0.875 MG/HR Transdermal Patch [Nicoderm C-Q] 07/25/2020 12:00:00 AM EDT eCW1 ([facility]) 24 HR Nicotine 0.875 MG/HR Transdermal Patch [Nicoderm C-Q] 07/25/2020 12:00:00 AM EDT eCW1 ([facility]) 24 HR Nicotine 0.875 MG/HR Transdermal Patch [Nicoderm C-Q] 07/25/2020 12:00:00 AM EDT eCW1 ([facility]) 24 HR Nicotine 0.875 MG/HR Transdermal Patch [Nicoderm C-Q] 07/25/2020 12:00:00 AM EDT eCW1 ([facility]) 24 HR Nicotine 0.875 MG/HR Transdermal Patch [Nicoderm C-Q] 07/25/2020 12:00:00 AM EDT eCW1 ([facility]) 24 HR Nicotine 0.875 MG/HR Transdermal Patch [Nicoderm C-Q] 07/25/2020 12:00:00 AM EDT eCW1 ([facility]) 24 HR Nicotine 0.875 MG/HR Transdermal Patch [Nicoderm C-Q] 07/25/2020 12:00:00 AM EDT eCW1 ([facility]) 24 HR Nicotine 0.875 MG/HR Transdermal Patch [Nicoderm C-Q] 07/25/2020 12:00:00 AM EDT eCW1 ([facility]) 24 HR Nicotine 0.875 MG/HR Transdermal Patch [Nicoderm C-Q] 07/25/2020 12:00:00 AM EDT eCW1 ([facility]) 24 HR Nicotine 0.875 MG/HR Transdermal Patch [Nicoderm C-Q] 07/25/2020 12:00:00 AM EDT eCW1 ([facility]) 24 HR Nicotine 0.875 MG/HR Transdermal Patch [Nicoderm C-Q] 07/25/2020 12:00:00 AM EDT eCW1 ([facility]) 24 HR Nicotine 0.875 MG/HR Transdermal Patch [Nicoderm C-Q] 07/25/2020 12:00:00 AM EDT eCW1 ([facility]) 24 HR Nicotine 0.875 MG/HR Transdermal Patch [Nicoderm C-Q] 07/25/2020 12:00:00 AM EDT eCW1 ([facility]) 24 HR Nicotine 0.875 MG/HR Transdermal Patch [Nicoderm C-Q] 07/25/2020 12:00:00 AM EDT eCW1 ([facility]) 24 HR Nicotine 0.875 MG/HR Transdermal Patch [Nicoderm C-Q] 07/25/2020 12:00:00 AM EDT eCW1 ([facility]) 24 HR Nicotine 0.875 MG/HR Transdermal Patch [Nicoderm C-Q] 07/25/2020 12:00:00 AM EDT eCW1 ([facility]) 24 HR Nicotine 0.875 MG/HR Transdermal Patch [Nicoderm C-Q] 07/25/2020 12:00:00 AM EDT eCW1 ([facility]) 24 HR Nicotine 0.875 MG/HR Transdermal Patch [Nicoderm C-Q] 07/25/2020 12:00:00 AM EDT eCW1 ([facility]) 24 HR Nicotine 0.875 MG/HR Transdermal Patch [Nicoderm C-Q] 07/25/2020 12:00:00 AM EDT eCW1 ([facility]) 24 HR Nicotine 0.875 MG/HR Transdermal Patch [Nicoderm C-Q] 07/25/2020 12:00:00 AM EDT eCW1 ([facility]) 24 HR Nicotine 0.875 MG/HR Transdermal Patch [Nicoderm C-Q] 07/25/2020 12:00:00 AM EDT eCW1 ([facility] [facility]) 24 HR Nicotine 0.875 MG/HR Transdermal Patch [Nicoderm C-Q] 07/25/2020 12:00:00 AM EDT eCW1 (Formerly [facility]) 24 HR Nicotine 0.875 MG/HR Transdermal Patch [Nicoderm C-Q] 07/25/2020 12:00:00 AM EDT eCW1 (Formerly [facility]) Lidocaine 5 % External Patch (LIDODERM) 07/16/2020 12:00:00 AM [facility] sennosides, LONG-TERM 8.6 MG Oral Tablet 07/15/2020 10:00:00 PM [facility] Lactulose 667 MG/ML Oral Solution 07/13/2020 12:00:00 AM [facility] sodium chloride (preservative free) 0.9 % flush 3 mL 021 05:00:00 PM [facility] sodium chloride 0.9 % bag 3-20 mL 07/04/2020 12:29:48 PM [facility] Furosemide 20 MG Oral Tablet 06/20/2020 12:00:00 AM [facility] Ibuprofen 600 MG Oral Tablet 06/20/2020 12:00:00 AM [facility] Calcium Carbonate 500 MG Chewable Tablet 06/19/2020 04:15:00 AM [facility] Famotidine 20 MG Oral Tablet 06/19/2020 04:07:06 AM [facility] Thiamine 100 MG Oral Tablet 06/19/2020 12:00:[address] [facility], LONG-TERM 8.6 MG Oral Tablet 06/19/2020 12:00:00 AM [facility] Lactulose 667 MG/ML Oral Solution 06/19/2020 12:00:00 AM [facility] hypromellose 25 MG/ML Ophthalmic Solution 06/19/2020 12:00:00 AM [facility] Folic Acid 1 MG Oral Tablet 06/19/2020 12:00:00 AM [facility] Docusate Sodium 100 MG Oral Capsule 06/19/2020 12:00:00 AM [facility] carvedilol 6.25 MG Oral Tablet 06/19/2020 12:00:[address] [facility], LONG-TERM 8.6 MG Oral Tablet 06/12/2020 10:00:00 PM [facility] hypromellose 25 MG/ML Ophthalmic Solution 06/12/2020 09:53:35 AM ED [facility] torsemide 20 MG Oral Tablet 06/12/2020 12:00:00 AM EDT [facility] Spironolactone 25 MG Oral Tablet 06/12/2020 12:00:00 AM EDT [facility] Spironolactone 25 MG Oral Tablet 03/15/2020 12:00:00 AM EST [facility] torsemide 20 MG Oral Tablet 03/15/2020 12:00:00 AM EST [facility] 24 HR metoprolol succinate 50 MG Extended Release Oral Tablet 02/21/2020 12:00:00 AM EST [facility] Benazepril hydrochloride 20 MG / Hydrochlorothiazide 2 5 MG Oral Tablet 02/21/2020 12:00:00 AM EST [facility] Ergocalciferol 73096 UNT Oral Capsule 01/25/2020 12:00:00 AM EST [facility] Ergocalciferol 69834 UNT Oral Capsule [Drisdol] 01/24/2020 12:00:00 AM EST eCW1 ([facility]) Ergocalciferol 55408 UNT Oral Capsule [Drisdol] 01/24/2020 12:00:00 AM EST eCW1 ([facility]) Ergocalciferol 93786 UNT Oral Capsule [Drisdol] 01/24/2020 12:00:00 AM EST eCW1 ([facility]) Ergocalciferol 74940 UNT Oral Capsule [Drisdol] 01/24/2020 12:00:00 AM EST eCW1 ([facility]) Ergocalciferol [id number] UNT Oral Capsule [Drisdol] 01/24/2020 12:00:00 AM EST eCW1 ([facility]) 24 HR metoprolol succinate 50 MG Extended Release Oral Tablet 01/13/2020 12:00:00 AM EST eCW1 (Formerly [facility]) 24 HR metoprolol succinate 50 MG Extended Release Oral Tablet 01/13/2020 12:00:00 AM EST eCW1 (Formerly [facility]) 24 HR metoprolol succinate 50 MG Extended Release Oral Tablet 01/13/2020 12:00:00 AM EST eCW1 (Formerly [facility]) 24 HR metoprolol succinate 50 MG Extended Release Oral Tablet 01/13/2020 12:00:00 AM EST eCW1 (Formerly [facility]) 24 HR metoprolol succinate 50 MG Extended Release Oral Tablet 01/13/2020 12:00:00 AM EST eCW1 (Formerly [facility]) 24 HR metoprolol succinate 50 MG Extended Release Oral Tablet 01/13/2020 12:00:00 AM EST eCW1 (Formerly [facility]) pantoprazole 40 MG Delayed Release Oral Tablet 01/13/2020 12:00:00 AM EST [facility] Nadolol 20 MG Oral Tablet 06/06/2016 12:00:00 AM [facility] 24 HR metoprolol succinate 50 MG Extended Release Oral Tablet [facility] torsemide 20 MG Oral Tablet [facility] Metoprolol Tartrate 50 MG Oral Tablet [facility] Benazepril hydrochloride 20 MG / Hydrochlorothiazide 25 MG Oral Tab let [facility]
[2021-01-24 11:08] LABS: VENOUS BASE EXCESS -0.4 (-2.0-2.0); VENOUS HCO3 23.1 MEQ/L (23.0-27.0); VENOUS O2 SATURATION 96.4 % (60.0-80.0); VENOUS PARTIAL PRESSURE CO2 33.7 mmHg (38.0-50.0); VENOUS PARTIAL PRESSURE O2 83.9 mmHg (30.0-50.0); VENOUS PH 7.453 UNITS (7.330-7.430); VENOUS STANDARD HCO3 24.2 MEQ/L; VENOUS TOTAL CO2 24.1 MEQ/L (24.0-28.0)
[2021-01-24 11:18] LABS: BASO % 0.3 % (0.0-1.0); EOS # 0.2 10^3/uL (0.0-0.5); EOS % 2.2 % (0.0-3.0); HEMATOCRIT 31.7 % (42.0-52.0); HEMOGLOBIN 10.8 g/dl (13.5-17.5); LYMPH # 0.4 10^3/uL (1.5-5.0); MEAN CORPUSCULAR HEMOGLOBIN 29.6 pg (27.0-33.0); MEAN CORPUSCULAR HGB CONC 34.1 g/dl (32.0-36.5); MEAN CORPUSCULAR VOLUME 86.8 fl (80.0-96.0); MONO # 1.3 10^3/uL (0.0-0.8); MONO % 18.4 % (2.0-8.0); NEUTROPHILS # 4.9 10^3/uL (1.5-8.5); NEUTROPHILS % 72.5 % (36.0-66.0); RED BLOOD COUNT 3.65 10^6/uL (4.30-6.10); WHITE BLOOD COUNT 6.8 10^3/uL (4.0-10.0)
[2021-01-24 11:25] LABS: PLATELET COUNT, AUTOMATED 39 10^3/uL (150-450)
[2021-01-24] MEDS ORDERED: cefTRIAXone SOD 2 GM in D5W MINI-BAG PLUS 50 ML IV ONE (11:35)
[2021-01-24 11:40] LABS: INR 1.21; PROTHROMBIN TIME 15.8 SECONDS (12.7-14.5)
[2021-01-24 11:41] LABS: PARTIAL THROMBOPLASTIN TIME 33.4 SECONDS (25.9-37.0)
[2021-01-24 11:43] LABS: ALBUMIN 2.2 GM/DL (3.2-5.2); BILIRUBIN,DIRECT 0.9 MG/DL (0.0-0.2); BILIRUBIN,TOTAL 1.5 MG/DL (0.2-1.0); CALCIUM LEVEL 7.9 MG/DL (8.8-10.2); CREATININE FOR GFR 1.51 MG/DL (0.70-1.30); GLOMERULAR FILTRATION RATE 50.4 (>49); POTASSIUM SERUM 3.6 MEQ/L (3.5-5.1); TOTAL PROTEIN 7.1 GM/DL (6.4-8.2)
--- NOTE | 2021-01-24 11:53 | REP ---
INDICATION: fever. COMPARISON: 10/16/2020. TECHNIQUE: Single portable AP view of the chest was performed. FINDINGS: There is no acute infiltrate or pulmonary edema. Lungs are clear. The heart is not significantly enlarged. The mediastinal silhouette is unremarkable. The visualized osseous structures are intact. IMPRESSION: No acute pulmonary disease. <Electronically signed by Ernie Craig > 01/24/21 1143
[2021-01-24] MEDS: COMBIVENT RESPIMAT 100-20MCG INHALER 4GM INH SCH ×3 (11:55→12:35)
--- OUTSIDE RECORDS SUMMARY | 2021-01-24 12:57 | CCD ---
Author Author [facility] Organization [facility] Address Unknown Phone Unavailable Care Team Providers Care Machine Greaser Name Role Phone DEBBIE Castillo MD Unavailable Unavailable DEBBIE Castillo MD Unavailable Unavailable DEBBIE Castillo MD Unavailable Unavailable DEBBIE Castillo MD Unavailable Unavailable DEBBIE Castillo MD Unavailable Unavailable DEBBIE Castillo MD Unavailable Unavailable Lolita FRANCO Unavailable Unavailable Salmon, Jordyn CFO CONTROLLER Unavailable Unavailable Salmon, Jordyn CFO CONTROLLER Unavailable Unavailable Salmon, Jordyn CFO CONTROLLER Unavailable Unavailable Salmon, Jordyn CFO CONTROLLER Unavailable Unavailable Salmon, Jordyn CFO CONTROLLER Unavailable Unavailable Salmon, Jordyn CFO CONTROLLER Unavailable Unavailable Salmon, Jordyn CFO CONTROLLER Unavailable Unavailable Salmon, Jordyn CFO CONTROLLER Unavailable Unavailable Salmon, Jordyn CFO CONTROLLER Unavailable Unavailable Salmon, Jordyn CFO CONTROLLER Unavailable Unavailable Salmon, Jordyn CFO CONTROLLER Unavailable Unavailable Salmon, Jordyn CFO CONTROLLER Unavailable Unavailable Salmon, Jordyn CFO CONTROLLER Unavailable Unavailable Salmon, Jordyn CFO CONTROLLER Unavailable Unavailable Salmon, Jordyn CFO CONTROLLER Unavailable Unavailable Salmon, Jordyn CFO CONTROLLER Unavailable Unavailable Salmon, Jordyn CFO CONTROLLER Unavailable Unavailable Salmon, Jordyn CFO CONTROLLER Unavailable Unavailable Salmon, Jordyn CFO CONTROLLER Unavailable Unavailable Salmon, Jordyn CFO CONTROLLER Unavailable Unavailable Salmon, Jordyn CFO CONTROLLER Unavailable Unavailable Salmon, Jordyn CFO CONTROLLER Unavailable Unavailable Salmon, Jordyn CFO CONTROLLER Unavailable Unavailable Salmon, Jordyn CFO CONTROLLER Unavailable Unavailable Salmon, Jordyn CFO CONTROLLER Unavailable Unavailable Salmon, Jordyn CFO CONTROLLER Unavailable Unavailable Salmon, Jordyn CFO CONTROLLER Unavailable Unavailable Salmon, Jordyn CFO CONTROLLER Unavailable Unavailable Salmon, Jordyn CFO CONTROLLER Unavailable Unavailable Salmon, Jordyn CFO CONTROLLER Unavailable Unavailable Salmon, Jordyn CFO CONTROLLER Unavailable Unavailable Salmon, Jordyn CFO CONTROLLER Unavailable Unavailable Salmon, Jordyn CFO CONTROLLER Unavailable Unavailable Salmon, Jordyn CFO CONTROLLER Unavailable Unavailable Salmon, Jordyn CFO CONTROLLER Unavailable Unavailable Salmon, Jordyn CFO CONTROLLER Unavailable Unavailable Salmon, Jordyn CFO CONTROLLER Unavailable Unavailable Salmon, Jordyn CFO CONTROLLER Unavailable Unavailable Salmon, Jordyn CFO CONTROLLER Unavailable Unavailable Salmon, Jordyn CFO CONTROLLER Unavailable Unavailable Salmon, Jordyn CFO CONTROLLER Unavailable Unavailable Salmon, Jordyn CFO CONTROLLER Unavailable Unavailable Salmon, Jordyn CFO CONTROLLER Unavailable Unavailable Salmon, Jordyn CFO CONTROLLER Unavailable Unavailable Salmon, Jordyn CFO CONTROLLER Unavailable Unavailable Salmon, Jordyn CFO CONTROLLER Unavailable Unavailable Salmon, Jordyn CFO CONTROLLER Unavailable Unavailable Salmon, Jordyn CFO CONTROLLER Unavailable Unavailable David SIMONS MD Unavailable Unavailable [...] Unavailable JOSIAH, Tatyana FRIEND MD Unavailable Unavailable Tatyana RAHMAN MD Unavailable Unavailable JOSIAHTatyana MCGRATH MD Unavailable [...] Unavailable JOSIAH, Tatyana FRIEND MD Unavailable Unavailable HILL PA, W CAROLA [...] JACKELINE, RONNA KARLA PA Unavailable Unavailable JACKELINE, ORNNA KARLA PA Unavailable Unavailable JACKELINE, RONNA KARLA [...] RONNA KARLA PA Unavailable Unavailable JACKELINE, RONNA KRALA PA Unavailable Unavailable JACKELINE, RONNA KARLA PA Unavailable Unavailable JACKELINE, RONNA KARLA PA Unavailable Unavailable Axel Zepeda MD Unavailable [...] Unavailable Axel Zepeda MD Unavailable Unavailable Slezka Vololitatech Unavailable Unavailable SlezkaBaritech Unavailable Unavailable SlezkaTujtech MD Unavailable Unavailable SlezkaTujtech Unavailable Unavailable Slezka Vojtech MD Unavailable Unavailable SlezkaTujtech MD Unavailable Unavailable Slezka Vojtech MD Unavailable Unavailable Slezka Vojtech MD Unavailable Unavailable Slezka Vojtech Unavailable Unavailable SlezkaTujtech Unavailable Unavailable Slezka Vojtech Unavailable Unavailable Slezka Vojtech Unavailable Unavailable Slezka Vojtech MD Unavailable Unavailable Slezka Vojtech MD Unavailable Unavailable Slezka Vojtech MD Unavailable Unavailable Slezka Vojtech MD Unavailable Unavailable Slezka Vojtech MD Unavailable Unavailable SlezkaTujtech MD Unavailable Unavailable SlezkaTujtech MD Unavailable Unavailable SleisaelkaTujtech Unavailable Unavailable SleisaelkaTujtech Unavailable Unavailable SleTu hurtjtech Unavailable Unavailable SleisaelkaTujtech Unavailable Unavailable SleisaelkaBaritech Unavailable Unavailable SleBari hurttech Unavailable Unavailable SleTu hurtjtech MD Unavailable Unavailable REINDL, JOANIE ANDERSEN Unavailable [...] Lolita NOEL MD Unavailable Unavailable Salmon, Jordyn CFO CONTROLLER Unavailable Unavailable Salmon, Jordyn CFO CONTROLLER Unavailable Unavailable Salmon, Jordyn CFO CONTROLLER Unavailable Unavailable Salmon, Jordyn CFO CONTROLLER Unavailable Unavailable Salmon, Jordyn CFO CONTROLLER Unavailable Unavailable Salmon, Jordyn CFO CONTROLLER Unavailable Unavailable Salmon, Jordyn CFO CONTROLLER Unavailable Unavailable Salmon, Jordyn CFO CONTROLLER Unavailable Unavailable Salmon, Jordyn CFO CONTROLLER Unavailable Unavailable Salmon, Jordyn CFO CONTROLLER Unavailable Unavailable Salmon, Jordyn CFO CONTROLLER Unavailable Unavailable Salmon, Jordyn CFO CONTROLLER Unavailable Unavailable Salmon, Jordyn CFO CONTROLLER Unavailable Unavailable Salmon, Jordyn CFO CONTROLLER Unavailable Unavailable Salmon, Jordyn CFO CONTROLLER Unavailable Unavailable Salmon, Jordyn CFO CONTROLLER Unavailable Unavailable Salmon, Jordyn CFO CONTROLLER Unavailable Unavailable Salmon, Jordyn CFO CONTROLLER Unavailable Unavailable Salmon, Jordyn CFO CONTROLLER Unavailable Unavailable Salmon, Jordyn CFO CONTROLLER Unavailable Unavailable Salmon, Jordyn CFO CONTROLLER Unavailable Unavailable Salmon, Jordyn CFO CONTROLLER Unavailable Unavailable Salmon, Jordyn CFO CONTROLLER Unavailable Unavailable Salmon, Jordyn CFO CONTROLLER Unavailable Unavailable Salmon, Jordyn CFO CONTROLLER Unavailable Unavailable Salmon, Jordyn CFO CONTROLLER Unavailable Unavailable Salmon, Jordyn CFO CONTROLLER Unavailable Unavailable Salmon, Jordyn CFO CONTROLLER Unavailable Unavailable Salmon, Jordyn CFO CONTROLLER Unavailable Unavailable Salmon, Jordyn CFO CONTROLLER Unavailable Unavailable Salmon, Jordyn CFO CONTROLLER Unavailable Unavailable Salmon, Jordyn CFO CONTROLLER Unavailable Unavailable Salmon, Jordyn CFO CONTROLLER Unavailable Unavailable Salomn, Jordyn CFO CONTROLLER Unavailable Unavailable Salmon, Jordyn CFO CONTROLLER Unavailable Unavailable Salmon, Jordyn CFO CONTROLLER Unavailable Unavailable Salmon, Jordyn CFO CONTROLLER Unavailable Unavailable Salmon, Jordyn CFO CONTROLLER Unavailable Unavailable Salmon, Jordyn CFO CONTROLLER Unavailable Unavailable Salmon, Jordyn CFO CONTROLLER Unavailable Unavailable Salmon, Jordyn CFO CONTROLLER Unavailable Unavailable Salmon, Jordyn CFO CONTROLLER Unavailable Unavailable Salmon, Jordyn CFO CONTROLLER Unavailable Unavailable Salmon, Jordyn CFO CONTROLLER Unavailable Unavailable Salmon, Jordyn CFO CONTROLLER Unavailable Unavailable Salmon, Jordyn CFO CONTROLLER Unavailable Unavailable Salmon, Jordyn CFO CONTROLLER Unavailable Unavailable Salmon, Jordyn CFO CONTROLLER Unavailable Unavailable BAUDILIO LOPEZ MD Unavailable Unavailable [...] MD Unavailable Unavailable CREAMERLakisha MD Unavailable Unavailable Giron ., Katie DO Unavailable Unavailable Giron ., Katie DO Unavailable Unavailable Nerissa, V AMY PA-C Unavailable Unavailable Smyrna, V AMY PA-C Unavailable Unavailable Smyrna, V AMY PA-C Unavailable Unavailable Nerissa, V AMY PA-C Unavailable Unavailable Nerissa, V AMY PA-C Unavailable Unavailable Smyrna, V AMY PA-C Unavailable Unavailable Smyrna, V AMY PA-C Unavailable Unavailable Smyrna, V AMY PA-C Unavailable Unavailable Nerissa, V AMY PA-C Unavailable Unavailable Smyrna, V AMY PA-C Unavailable Unavailable Smyrna, V AMY PA-C Unavailable Unavailable Smyrna, V AMY PA-C Unavailable Unavailable Smyrna, V AMY PA-C Unavailable Unavailable Smyrna, V AMY PA-C Unavailable Unavailable Bunting, Greta Daugherty CFO CONTROLLER Unavailable Unavailable [place]arico, A Smith ANDERSEN Unavailable [...] Unavailable [place]ar[place], A Smith ANDERSEN Unavailable Unavailable Elam, David Bird MD Unavailable Unavailable Papa, David Bird MD Unavailable Unavailable Papa, David Bird MD Unavailable Unavailable Papa, David Bird MD Unavailable Unavailable Papa, David Bird MD Unavailable Unavailable Papa, David Bird MD Unavailable Unavailable Papa, David Bird MD Unavailable Unavailable Elam, David Bird MD Unavailable Unavailable Elam, David Bird MD Unavailable Unavailable Elam, D Pelon MD Unavailable Unavailable David Elam MD Unavailable [...] Unavailable Unavailable David Elam MD Unavailable Unavailable Elam, Daivd Bird MD Unavailable Unavailable Elam, David Bird MD Unavailable Unavailable Elam, David Bird MD Unavailable Unavailable Dhrvu, M Balbina CFO CONTROLLER Unavailable Unavailable Dhruv, M Balbina CFO CONTROLLER Unavailable Unavailable Dhruv, M Balbina CFO CONTROLLER Unavailable Unavailable Dhruv, M Balbina CFO CONTROLLER Unavailable Unavailable Dhruv, M Balbina CFO CONTROLLER Unavailable Unavailable Dhruv, M Balbina CFO CONTROLLER Unavailable Unavailable Dhruv, M Balbina CFO CONTROLLER Unavailable Unavailable Dhruv, M Balbina CFO CONTROLLER Unavailable Unavailable Dhruv, M Balbina CFO CONTROLLER Unavailable Unavailable Dhruv, M Balbina CFO CONTROLLER Unavailable Unavailable Dhruv, M Balbina CFO CONTROLLER Unavailable Unavailable Dhruv, M Balbina CFO CONTROLLER Unavailable Unavailable Dhruv, M Balbina CFO CONTROLLER Unavailable Unavailable Dhruv, M Balbina CFO CONTROLLER Unavailable Unavailable Dhruv, M Balbina CFO CONTROLLER Unavailable Unavailable Re-disclosure Warning The records that [...] is protected by Article 27-F of the [facility] Public Health law. If you continue you may have access to information: Regarding HIV / AIDS; Provided by facilities licensed or operated by the [facility] Office of Mental Health; or Provided by the [facility] Office for People With Developmental Disabilities. If such information is present, then the following [facility] mandated warning applies: This information has been [...] law may result in a fine or detention sentence or both. A general authorization for the release of medical or other information is NOT sufficient authorization for further disc losure. Allergies and Adverse Reactions Type Description Substance Reaction Status Data Source(s ) Propensity to adverse reactions NO KNOWN ALLERGIES NO KNOWN ALLERGIES [facility] Family History Family Member Name Family Member Gender Family Member Status Date o f Status Description Data Source(s) Unknown Unknown Problem MEDENT ([facility]) mother Dx age 58 Encounters Encounter Providers Location Date Indications Data Source(s ) Outpatient 12/14/2020 12:00:00 AM EDT fol [facility] Outpatient Attender: JOANIE Alvarez/Kapil/Lasha/Sharron bianchi 12/12/2020 10:15:00 AM EDT MEDENT ([facility], ) Unknown [address] [facility] [place] [address] 12/12/2020 12:00:00 AM EDT eCW1 ([facility]) Outpatient [address] [facility] [address] 12/06/2020 12:00:00 AM EDT eCW1 ([facility]) Outpatient Attender: AMY LANDVAERDECReferrer: Ava SZYMANSKI SJP.DLILON-SJP.DILLON 12/03/2020 12:00:00 AM EDT - 12/03/2020 10:33:24 AM EDT [facility] Unknown [address] [facility] [place] [address] 11/14/2020 12:00:00 AM EDT eCW1 ([facility]) Unknown [address] [facility] [place] [address] 11/14/2020 12:00:00 AM EDT eCW1 ([facility]) Unknown [address] [facility] [place] [address] 11/12/2020 12:00:00 AM EDT eCW1 ([facility]) Unknown [address] [facility] [place] [address] 2020 12:00:00 AM EDT eCW1 ([facility]) [place] [address] [facility] [place] [address] 2020 12:00:00 AM EDT eCW1 ([facility]) (TCM) Transition of Care Visit [address] [place] [address] 10/24/2020 12:00:00 AM EDT eCW1 ([facility]) Unknown [address] [facility] [place] [address] 10/22/2020 12:00:00 AM EDT eCW1 ([facility] Unknown [address] [facility] [place] [address] 10/16/2020 12:00:00 AM EDT [facility] [address] [facility] [place] [address] 10/12/2020 12:00:00 AM EDT [facility] Outpatient Attender: AMY Anglinrer: Ava Salmon CFO CONTROLLER SJP.DILLON-SJP.DILLON 10/02/2020 12:00:00 AM EDT - 10/02/2020 11:06:04 AM EDT [facility] Unknown [address] [facility] [place] [address] 10/02/2020 12:00:00 AM EDT eCW1 ([facility]) Unknown [address] [facility] [address] 10/01/2020 12:00:00 AM EDT eCW1 ([facility]) Unknown [address] [facility] [place] [address] 09/14/2020 12:00:00 AM EDT [facility]CW1 [facility] [place] [address] [facility] [place] [address] 09/11/2020 12:00:00 AM EDT [facility]CW1 [facility] Outpatient [address] [facility] [place] [address] 09/11/2020 12:00:00 AM EDT [facility]CW1 [facility] Outpatient Attender: RONNA RAHMAN MDReferrer: Pelon Elam MD [id number] 09/07/2020 12:00:00 AM EDT - 09/07/2020 11:20:50 AM EDT Stable burst fracture of unspecified thoracic vertebra, initial encounter for closed fracture [facility] Stable burst fracture of unspecified tho racic vertebra, initial encounter for closed fracture Outpatient Referrer: RONNA RAHMAN MD 09/07/2020 1 2:00:00 AM EDT Stable burst fracture of unspecified thoracic vertebra, initial encounter for closed fracture [facility] Stable burst fracture of unspecified tho racic vertebra, initial encounter for closed fracture Outpatient Attender: AMY LANDAVERDECReferrer: Ava Salmon CFO CONTROLLER SJP.DILLON-SJP.DILLON 09/03/2020 02:29:12 PM EDT - 09/03/2020 04:02:43 PM EDT [facility] Unknown [address] [facility] [place] [address] 08/30/2020 12:00:00 AM EDT [facility] Unknown [address] [facility] [place] [address] 08/15/2020 12:00:00 AM EDT [facility] Unknown [address] [facility] [place] [address] 08/14/2020 12:00:00 AM EDT [facility]1 [facility] Outpatient [address] [facility] [place] [address] 08/14/2020 12:00:00 AM EDT [facility] Outpatient [address] [facility] [place] [address] 08/07/2020 12:00:00 AM EDT [facility]CW1 [facility] Unknown [address] [facility] [place] [address] 08/06/2020 12:00:00 AM EDT [facility]CW1 [facility] Unknown [address] [facility] [place] [address] 07/31/2020 12:00:00 AM EDT eCW1 ([facility]) Outpatient [address] [facility] [place] [address] 07/31/2020 12:00:00 AM EDT eCW1 ([facility]) Unknown [address] [facility] [place] [address] 07/30/2020 12:00:00 AM EDT eCW1 ([facility]) Outpatient [address] [facility] [place] [address] 07/25/2020 12:00:00 AM EDT eCW1 ([facility]) Outpatient Referrer: Dat Lai [facility] 07/16/2020 12:00:[address] [facility] Emergency Attender: LEON FAROOQ PAReferrer : Jordyn Salmon [facility] EMERGENCY ROOM-ER 07/14/2020 06:15:00 PM EDT - 07/14/2020 09:25:00 PM EDT [facility] Patient discharged. Outpatient Attender: BAUDILIO LOPEZ MDAt tender: ROME HERNANDEZ MDAttender: BERT OMALLEY MDAdmitter: ROME HERNANDEZ MDReferrer: ROME HERNADNEZ MD [id number] 07/14/2020 12:00:00 AM EDT - 07/16/2020 03:36:00 PM EDT Other [facility] Other ascites Patient discharged. Outpatient 07/13/2020 09:33:06 AM EDT hosp D/C [facility] hosp D/C Admission cancelled. Disregard status an d admitted date. Outpatient 07/13/2020 12:00:00 AM EDT hosp D/C [facility] hosp D/C Outpatient Referrer: CAROLA KIRAN 07/13/2020 12:00: 00 AM EDT Unspecified fracture of unspecified thoracic vertebra, sequela [facility] Unspecified fracture of unspecified thor acic vertebra, sequela Outpatient Attender: Smith Sosa MD [id number] 07/13/2020 12:00:00 AM EDT - 07/13/2020 01:28:21 PM EDT [facility] spital Unlisted evaluation and management service 07/04/2020 12:32:00 PM EDT - 08/31/2020 02:21:00 PM EDT [facility] ([facility]) Outpatient Attender: JOANIE Paiz er: JOANIE FRANCOReferrer: Balbina SZYMANSKI 07/04/2020 12:00:00 AM EDT - 07/04/2020 03:45:00 PM EDT Other [facility] Other ascites Patient discharged. Inpatient Attender: JOVANA Lawler nder: FATMATA SIMONS MDAttender: Katie Giron .Admitter: FATMATA SIMONS MDReferrer: LEON FAROOQ PAConsultant: JOVANA Castillo MD A-06/12/2020 12:00:00 AM EDT - 06/19/2020 05:16:00 PM EDT Stable burst fracture of unspecified thoracic vertebra, initial encounter for closed fracture [facility] Stable burst fracture of unspecified tho racic vertebra, initial encounter for closed fracture Patient discharged. Emergency Attender: KARLA VIVEROS PAReferrer: Alphonso SZYMANSKI EMERGENCY ROOM-ER 06/11/2020 05:37:00 PM EDT - 06/11/2020 11:50:00 PM EDT [facility] Patient discharged. [place] [address] [facility] [place] [address] 05/16/2020 12:00:00 AM EDT eCW1 ([facility]) Outpatient Attender: Axel RAMÍREZDILLON-SJPRenoDILLON 03/26 12:00:00 AM EST - 04/04/2020 11:39:12 AM EST [facility] Outpatient Attender: Axel KIRKLANDeferrer: Lewis RAMÍREZDILLON-SJPRenoDILLON 03/15/2020 12:00:00 AM EST - 03/15/2020 02:58:10 PM EST [facility] Outpatient [address] [facility] [place] [address] 03/02/2020 12:00:00 AM EST eCW1 ([facility]) Unknown [address] [facility] [place] [address] 02/09/2020 12:00:00 AM EST eCW1 ([facility]) Outpatient Attender: Jordyn GARCIAPReferrer: Jordyn SZYMANSKI 02/08/2020 08:00:00 AM EST [facility] Unknown [address] [facility] [place] [address] 02/06/2020 12:00:00 AM EST eCW1 ([facility]) Outpatient [address] [facility] [place] [address] 01/24/2020 12:00:00 AM EST eCW1 ([facility]) Unknown [address] [facility] [place] [address] 01/15/2020 12:00:00 AM EST eCW1 ([facility]) Outpatient [address] [facility] [place] [address] 01/13/2020 12:00:00 AM EST eCW1 ([facility]) Unknown [address] [facility] [place] [address] 12/11/2019 12:00:00 AM EDT eCW1 ([facility]) Unknown [address] [facility] [place] [address] 11/29/2019 12:00:00 AM EDT eCW1 ([facility]) Immunizations Vaccine Date Status Description Data Source(s) influenza, recombinant, quadrIvalent,injectable, prese rvative free 12/06/2020 03:37:00 PM EDT completed eCW1 ([facility]) influenza, recombinant, quadrIvalent,injectable, prese rvative free 12/06/2020 03:37:00 PM EDT completed eCW1 ([facility]) Zoster 50mcg/0.5mL Shingrix 12/06/2020 03:36:00 PM EDT completed eCW1 ([facility]) Zoster 50mcg/0.5mL Shingrix 12/06/2020 03:36:00 PM EDT completed eCW1 ([facility]) Zoster 50mcg/0.5mL Shingrix 08/14/2020 11:42:00 AM EDT completed eCW1 ([facility]) Zoster 50mcg/0.5mL Shingrix 08/14/2020 11:42:00 AM EDT completed eCW1 ([facility]) Zoster 50mcg/0.5mL Shingrix 08/14/2020 11:42:00 AM EDT completed eCW1 ([facility]) Zoster 50mcg/0.5mL Shingrix 08/14/2020 11:42:00 AM EDT completed eCW1 ([facility]) Zoster 50mcg/0.5mL Shingrix 08/14/2020 11:42:00 AM EDT completed eCW1 ([facility]) Zoster 50mcg/0.5mL Shingrix 08/14/2020 11:42:00 AM EDT completed eCW1 ([facility]) Zoster 50mcg/0.5mL Shingrix 08/14/2020 11:42:00 AM EDT completed eCW1 ([facility]) Zoster 50mcg/0.5mL Shingrix 08/14/2020 11:42:00 AM EDT completed eCW1 ([facility]) Zoster 50mcg/0.5mL Shingrix 08/14/2020 11:42:00 AM EDT completed eCW1 ([facility]) Zoster 50mcg/0.5mL Shingrix 08/14/2020 11:42:00 AM EDT completed eCW1 ([facility]) Zoster 50mcg/0.5mL Shingrix 08/14/2020 11:42:00 AM EDT completed eCW1 ([facility]) Zoster 50mcg/0.5mL Shingrix 08/14/2020 11:42:00 AM EDT completed eCW1 ([facility]) Zoster 50mcg/0.5mL Shingrix 08/14/2020 11:42:00 AM EDT completed eCW1 ([facility]) Zoster 50mcg/0.5mL Shingrix 08/14/2020 11:42:00 AM EDT completed eCW1 ([facility]) Zoster 50mcg/0.5mL Shingrix 08/14/2020 11:42:00 AM EDT completed eCW1 ([facility]) Zoster 50mcg/0.5mL Shingrix 08/14/2020 11:42:00 AM EDT completed eCW1 ([facility]) Zoster 50mcg/0.5mL Shingrix 08/14/2020 11:42:00 AM EDT completed eCW1 ([facility]) Zoster 50mcg/0.5mL Shingrix 08/14/2020 11:42:00 AM EDT completed eCW1 ([facility]) Zoster 50mcg/0.5mL Shingrix 08/14/2020 11:42:00 AM EDT completed eCW1 ([facility]) Zoster 50mcg/0.5mL Shingrix 08/14/2020 11:42:00 AM EDT completed eCW1 ([facility]) Zoster 50mcg/0.5mL Shingrix 08/14/2020 11:42:00 AM EDT completed eCW1 ([facility]) pneumococcal polysaccharide PPV23 08/14/2020 11:41:00 AM EDT comple jaden eCW1 ([facility]) pneumococcal polysaccharide PPV23 08/14/2020 11:41:00 AM EDT comple jaden eCW1 ([facility]) pneumococcal polysaccharide PPV23 08/14/2020 11:41:00 AM EDT comple jaden eCW1 ([facility]) pneumococcal polysaccharide PPV23 08/14/2020 11:41:00 AM EDT comple jaden eCW1 ([facility]) pneumococcal polysaccharide PPV23 08/14/2020 11:41:00 AM EDT comple jaden eCW1 ([facility]) pneumococcal polysaccharide PPV23 08/14/2020 11:41:00 AM EDT comple jaden eCW1 ([facility]) pneumococcal polysaccharide PPV23 08/14/2020 11:41:00 AM EDT comple jaden eCW1 ([facility]) pneumococcal polysaccharide PPV23 08/14/2020 11:41:00 AM EDT comple jaden eCW1 ([facility]) pneumococcal polysaccharide PPV23 08/14/2020 11:41:00 AM EDT comple jaden eCW1 ([facility]) pneumococcal polysaccharide PPV23 08/14/2020 11:41:00 AM EDT comple jaden [facility]CW1 [facility] [facility] pneum[facility] polysaccharide PPV23 08/14/2020 11:41:00 AM EDT comple jaden eCW1 ([facility]ly [facility]) pneumococcal polysaccharide PPV23 08/14/2020 11:41:00 AM EDT comple jaden eCW1 ([facility]ly [facility]) pneumococcal polysaccharide PPV23 08/14/2020 11:41:00 AM EDT comple jaden eCW1 ([facility]ly [facility]) pneumococcal polysaccharide PPV23 08/14/2020 11:41:00 AM EDT comple jaden eCW1 ([facility]ly [facility]) pneumococcal polysaccharide PPV23 08/14/2020 11:41:00 AM EDT comple jaden eCW1 ([facility]ly [facility]) pneumococcal polysaccharide PPV23 08/14/2020 11:41:00 AM EDT comple jaden eCW1 ([facility]ly [facility]) pneumococcal polysaccharide PPV23 08/14/2020 11:41:00 AM EDT comple jaden eCW1 ([facility]ly [facility]) pneumococcal polysaccharide PPV23 08/14/2020 11:41:00 AM EDT comple jaden eCW1 ([facility]ly [facility]) pneumococcal polysaccharide PPV23 08/14/2020 11:41:00 AM EDT comple jaden eCW1 ([facility]ly [facility]) pneumococcal polysaccharide PPV23 08/14/2020 11:41:00 AM EDT comple jaden eCW1 ([facility]) pneumococcal polysaccharide PPV23 08/14/2020 11:41:00 AM EDT comple jaden eCW1 ([facility]ly [facility]) COVID-19 VACCINE Moderna 07/09/2020 12:00:00 AM EDT completed [employer] Vaccine Series Complete: YESThis Data wa s Submitted to [facility] Via [facility]. COVID-19 dose #2 given elsewhere Unspecified 07/06/2020 10:5 2:00 AM EDT completed eCW1 (Formerly [facility]) COVID-19 dose #2 given elsewhere Unspecified 07/06/2020 10:5 2:00 AM EDT completed eCW1 ([facility]ly [facility]) COVID-19 dose #2 given elsewhere Unspecified 07/06/2020 10:5 2:00 AM EDT completed eCW1 ([facility]) COVID-19 dose #2 given elsewhere Unspecified 07/06/2020 10:5 2:00 AM EDT completed eCW1 ([facility]ly [facility]) COVID-19 dose #2 given elsewhere Unspecified 07/06/2020 10:5 2:00 AM EDT completed eCW1 ([facility]) COVID-19 dose #2 given elsewhere Unspecified 07/06/2020 10:5 2:00 AM EDT completed eCW1 ([facility]) COVID-19 dose #2 given elsewhere Unspecified 07/06/2020 10:5 2:00 AM EDT completed eCW1 ([facility]) COVID-19 dose #2 given elsewhere Unspecified 07/06/2020 10:5 2:00 AM EDT completed eCW1 ([facility]) COVID-19 dose #2 given elsewhere Unspecified 07/06/2020 10:5 2:00 AM EDT completed eCW1 ([facility]) COVID-19 dose #2 given elsewhere Unspecified 07/06/2020 10:5 2:00 AM EDT completed eCW1 ([facility]) COVID-19 dose #2 given elsewhere Unspecified 07/06/2020 10:5 2:00 AM EDT completed eCW1 ([facility]) COVID-19 dose #2 given elsewhere Unspecified 07/06/2020 10:5 2:00 AM EDT completed eCW1 ([facility]) COVID-19 dose #2 given elsewhere Unspecified 07/06/2020 10:5 2:00 AM EDT completed eCW1 ([facility]) COVID-19 dose #2 given elsewhere Unspecified 07/06/2020 10:5 2:00 AM EDT completed eCW1 ([facility]ly [facility]) COVID-19 dose #2 given elsewhere Unspecified 07/06/2020 10:5 2:00 AM EDT completed eCW1 ([facility]ly [facility]) COVID-19 dose #2 given elsewhere Unspecified 07/06/2020 10:5 2:00 AM EDT completed eCW1 ([facility]ly [facility]) COVID-19 dose #2 given elsewhere Unspecified 07/06/2020 10:5 2:00 AM EDT completed eCW1 ([facility]ly [facility]) COVID-19 dose #2 given elsewhere Unspecified 07/06/2020 10:5 2:00 AM EDT completed eCW1 ([facility]) COVID-19 dose #2 given elsewhere Unspecified 07/06/2020 10:5 2:00 AM EDT completed eCW1 ([facility]) COVID-19 dose #2 given elsewhere Unspecified 07/06/2020 10:5 2:00 AM EDT completed eCW1 ([facility]ly [facility]) COVID-19 dose #2 given elsewhere Unspecified 07/06/2020 10:5 2:00 AM EDT completed eCW1 ([facility]ly [facility]) COVID-19 dose #1 given elsewhere Unspecified 05/17/2020 10:5 2:00 AM EDT completed eCW1 ([facility]ly [facility]) COVID-19 dose #1 given elsewhere Unspecified 05/17/2020 10:5 2:00 AM EDT completed eCW1 ([facility]ly [facility]) COVID-19 dose #1 given elsewhere Unspecified 05/17/2020 10:5 2:00 AM EDT completed eCW1 ([facility]ly [facility]) COVID-19 dose #1 given elsewhere Unspecified 05/17/2020 10:5 2:00 AM EDT completed eCW1 ([facility]ly [facility]) COVID-19 dose #1 given elsewhere Unspecified 05/17/2020 10:5 2:00 AM EDT completed eCW1 ([facility]ly [facility]) COVID-19 dose #1 given elsewhere Unspecified 05/17/2020 10:5 2:00 AM EDT completed eCW1 ([facility]ly [facility]) COVID-19 dose #1 given elsewhere Unspecified 05/17/2020 10:5 2:00 AM EDT completed eCW1 ([facility]) COVID-19 dose #1 given elsewhere Unspecified 05/17/2020 10:5 2:00 AM EDT completed eCW1 ([facility]) COVID-19 dose #1 given elsewhere Unspecified 05/17/2020 10:5 2:00 AM EDT completed eCW1 ([facility]) COVID-19 dose #1 given elsewhere Unspecified 05/17/2020 10:5 2:00 AM EDT completed eCW1 ([facility]) COVID-19 dose #1 given elsewhere Unspecified 05/17/2020 10:5 2:00 AM EDT completed eCW1 ([facility]ly [facility]) COVID-19 dose #1 given elsewhere Unspecified 05/17/2020 10:5 2:00 AM EDT completed eCW1 ([facility]) COVID-19 dose #1 given elsewhere Unspecified 05/17/2020 10:5 2:00 AM EDT completed eCW1 ([facility]) COVID-19 dose #1 given elsewhere Unspecified 05/17/2020 10:5 2:00 AM EDT completed eCW1 ([facility]) COVID-19 dose #1 given elsewhere Unspecified 05/17/2020 10:5 2:00 AM EDT completed eCW1 ([facility]) COVID-19 dose #1 given elsewhere Unspecified 05/17/2020 10:5 2:00 AM EDT completed eCW1 ([facility]ly [facility]) COVID-19 dose #1 given elsewhere Unspecified 05/17/2020 10:5 2:00 AM EDT completed eCW1 ([facility]) COVID-19 dose #1 given elsewhere Unspecified 05/17/2020 10:5 2:00 AM EDT completed eCW1 ([facility]) COVID-19 dose #1 given elsewhere Unspecified 05/17/2020 10:5 2:00 AM EDT completed eCW1 ([facility]) COVID-19 dose #1 given elsewhere Unspecified 05/17/2020 10:5 2:00 AM EDT completed eCW1 ([facility]) COVID-19 dose #1 given elsewhere Unspecified 05/17/2020 10:5 2:00 AM EDT completed eCW1 (Formerly [facility]) COVID-19 VACCINE Moderna 05/17/2020 12:00:00 AM EDT completed [employer] Vaccine Series Complete: NOThis Data was Submitted to [facility] Via [employer]. COVID-19 VACCINE, MRNA-1273, LNP-S (MODERNA)/PF 05/17/2020 1 2:00:00 AM EDT completed [facility] influenza, recombinant, quadrIvalent,injectable, prese rvative free 01/13/2020 04:37:00 PM EST completed eCW1 ([facility]) influenza, recombinant, quadrIvalent,injectable, prese rvative free 01/13/2020 04:37:00 PM EST completed eCW1 ([facility]) influenza, recombinant, quadrIvalent,injectable, prese rvative free 01/13/2020 04:37:00 PM EST completed eCW1 ([facility]) influenza, recombinant, quadrIvalent,injectable, prese rvative free 01/13/2020 04:37:00 PM EST completed eCW1 ([facility]) influenza, recombinant, quadrIvalent,injectable, prese rvative free 01/13/2020 04:37:00 PM EST completed eCW1 ([facility]) influenza, recombinant, quadrIvalent,injectable, prese rvative free 01/13/2020 04:37:00 PM EST completed eCW1 ([facility]) influenza, recombinant, quadrIvalent,injectable, prese rvative free 01/13/2020 04:37:00 PM EST completed eCW1 ([facility]) influenza, recombinant, quadrIvalent,injectable, prese rvative free 01/13/2020 04:37:00 PM EST completed eCW1 ([facility]) influenza, recombinant, quadrIvalent,injectable, prese rvative free 01/13/2020 04:37:00 PM EST completed eCW1 ([facility]) influenza, recombinant, quadrIvalent,injectable, prese rvative free 01/13/2020 04:37:00 PM EST completed eCW1 ([facility]) influenza, recombinant, quadrIvalent,injectable, prese rvative free 01/13/2020 04:37:00 PM EST completed eCW1 ([facility]) influenza, recombinant, quadrIvalent,injectable, prese rvative free 01/13/2020 04:37:00 PM EST completed eCW1 ([facility]) influenza, recombinant, quadrIvalent,injectable, prese rvative free 01/13/2020 04:37:00 PM EST completed eCW1 ([facility]) influenza, recombinant, quadrIvalent,injectable, prese rvative free 01/13/2020 04:37:00 PM EST completed eCW1 ([facility]) influenza, recombinant, quadrIvalent,injectable, prese rvative free 01/13/2020 04:37:00 PM EST completed eCW1 ([facility]) influenza, recombinant, quadrIvalent,injectable, prese rvative free 01/13/2020 04:37:00 PM EST completed eCW1 ([facility]) influenza, recombinant, quadrIvalent,injectable, prese rvative free 01/13/2020 04:37:00 PM EST completed eCW1 ([facility]) influenza, recombinant, quadrIvalent,injectable, prese rvative free 01/13/2020 04:37:00 PM EST completed eCW1 ([facility]) influenza, recombinant, quadrIvalent,injectable, prese rvative free 01/13/2020 04:37:00 PM EST completed eCW1 ([facility]) influenza, recombinant, quadrIvalent,injectable, prese rvative free 01/13/2020 04:37:00 PM EST completed eCW1 ([facility]) influenza, recombinant, quadrIvalent,injectable, prese rvative free 01/13/2020 04:37:00 PM EST completed eCW1 ([facility]) influenza, recombinant, quadrIvalent,injectable, prese rvative free 01/13/2020 04:37:00 PM EST completed eCW1 ([facility]) influenza, recombinant, quadrIvalent,injectable, prese rvative free 01/13/2020 04:37:00 PM EST completed eCW1 ([facility]) influenza, recombinant, quadrIvalent,injectable, prese rvative free 01/13/2020 04:37:00 PM EST completed eCW1 ([facility]) influenza, recombinant, quadrIvalent,injectable, prese rvative free 01/13/2020 04:37:00 PM EST completed eCW1 ([facility]) influenza, recombinant, quadrIvalent,injectable, prese rvative free 01/13/2020 04:37:00 PM EST completed eCW1 ([facility]) influenza, recombinant, quadrIvalent,injectable, prese rvative free 01/13/2020 04:37:00 PM EST completed eCW1 ([facility]) influenza, recombinant, quadrIvalent,injectable, prese rvative free 01/13/2020 04:37:00 PM EST completed eCW1 ([facility]) influenza, recombinant, quadrIvalent,injectable, prese rvative free 01/13/2020 04:37:00 PM EST completed eCW1 ([facility]) influenza, recombinant, quadrIvalent,injectable, prese rvative free 01/13/2020 04:37:00 PM EST completed eCW1 ([facility]) influenza, recombinant, quadrIvalent,injectable, prese rvative free 01/13/2020 04:37:00 PM EST completed eCW1 ([facility]) influenza, recombinant, quadrIvalent,injectable, prese rvative free 01/13/2020 04:37:00 PM EST completed eCW1 ([facility]) influenza, recombinant, quadrIvalent,injectable, prese rvative free 01/13/2020 04:37:00 PM EST completed eCW1 ([facility]) influenza, recombinant, quadrIvalent,injectable, prese rvative free 01/13/2020 04:37:00 PM EST completed eCW1 ([facility]) Medications Medication Brand Name Start Date Product [...] TABLET BY MOUTH EVERY DAY SOLD: 01/21/2021 [facility] POLYETHYLENE GLYCOL 3350 142 MG/ML Oral Solution [Miralax] M iralax 12/12/2020 12:00:00 AM EDT active M EDENT ([facility], ) 17 gram/dose 12/12/2020 12:00:00 AM EDT powder [address] MCMILLAN COLON PREPARATIN INSTRUCTIONS USE DIRECTED SEE DR MCMILLAN COLON PREPARATIN INSTRUCTIONS SOLD: 12/15/2020 [facility] No Active Medications 12/12/2020 12:00:00 AM EDT completed MEDENT ([facility], ) Potassium Chloride 10 MEQ Extended Release Oral Tablet POTAS SIUM CHLORIDE 12/10/2020 12:00:00 AM EDT tablet extended release 60 TAKE ONE TABLET BY MOUTH TWICE A DAY WITH FOOD TAKE ONE TABLET BY MOUTH TWICE A DAY WITH FOOD SOLD: 12/10/2020 [facility] Potassium Chloride 10 MEQ Extended Relea se Oral Tablet Potassium Chloride ER 10 MEQ Potassium Chloride ER 10 MEQ 12/09/2020 12:00:00 AM EDT 1.0 {tablet_with_food} active Potassium Chl oride ER 10 MEQ eCW1 ([facility]ly [facility]) Potassium Chloride 10 MEQ Extended Relea se Oral Tablet Potassium Chloride ER 10 MEQ Potassium Chloride ER 10 MEQ 12/09/2020 12:00:00 AM EDT 1.0 {tablet_with_food} active Potassium Chl oride ER 10 MEQ eCW1 ([facility]ly [facility]) 25 mg 11/22/2020 12:00:00 AM [...] MOUTH EVERY 8 HOURS NEEDED FOR I [facility] 25 mg 2020 12:00:00 AM [...] {tablet_as_needed} active hydrOXYzine HCl 25 MG eCW1 ([facility]) 25 mg 2020 12:00:00 AM EDT tablet [...] {tablet_as_needed} active hydrOXYzine HCl 25 MG eCW1 ([facility]) Hydroxyzine Hydrochloride 25 MG Oral Tablet hydrOXYzin e HCl 25 MG hydrOXYzine HCl 25 MG 2020 12:00:00 AM EDT 1.0 {tablet_as_needed} active hydrOXYzine HCl 25 MG eCW1 ([facility]) Hydroxyzine Hydrochloride 25 MG Oral Tablet hydrOXYzin e HCl 25 MG hydrOXYzine HCl 25 MG 2020 12:00:00 AM EDT 1.0 {tablet_as_needed} active hydrOXYzine HCl 25 MG eCW1 ([facility]) Hydroxyzine Hydrochloride 25 MG Oral Tablet hydrOXYzin e HCl 25 MG hydrOXYzine HCl 25 MG 2020 12:00:00 AM EDT 1.0 {tablet_as_needed} active hydrOXYzine HCl 25 MG eCW1 ([facility]) Hydroxyzine Hydrochloride 25 MG Oral Tablet hydrOXYzin e HCl 25 MG hydrOXYzine HCl 25 MG 2020 12:00:00 AM EDT 1.0 {tablet_as_needed} active hydrOXYzine HCl 25 MG eCW1 ([facility]) Hydroxyzine Hydrochloride 25 MG Oral Tablet hydrOXYzin e HCl 25 MG hydrOXYzine HCl 25 MG 2020 12:00:00 AM EDT 1.0 {tablet_as_needed} active hydrOXYzine HCl 25 MG eCW1 ([facility]) Hydroxyzine Hydrochloride 25 MG Oral Tablet hydrOXYzin e HCl 25 MG hydrOXYzine HCl 25 MG 2020 12:00:00 AM EDT 1.0 {tablet_as_needed} active hydrOXYzine HCl 25 MG eCW1 ([facility]) 10 gram/15 mL 10/31/2020 12:00:00 [...] Oral active Take [address] [facility] 20 mg 08/17/2020 12:00:00 AM EDT tablet [...] 1.0 {tablet_with_food} active Carvedilol 12.5 MG eCW1 ([facility]) carvedilol 12.5 MG Oral Tablet Carvedilol 12.5 MG Carvedilol 12.5 MG 08/14/2020 12:00:00 AM EDT 1.0 {tablet_with_food} active Carvedilol 12.5 MG eCW1 ([facility]) carvedilol 12.5 MG Oral Tablet Carvedilol 12.5 MG Carvedilol 12.5 MG 08/14/2020 12:00:00 AM EDT 1.0 {tablet_with_food} active Carvedilol 12.5 MG eCW1 ([facility]) carvedilol 12.5 MG Oral Tablet Carvedilol 12.5 MG Carvedilol 12.5 MG 08/14/2020 12:00:00 AM EDT 1.0 {tablet_with_food} active Carvedilol 12.5 MG eCW1 ([facility]) carvedilol 12.5 MG Oral Tablet Carvedilol 12.5 MG Carvedilol 12.5 MG 08/14/2020 12:00:00 AM EDT 1.0 {tablet_with_food} active Carvedilol 12.5 MG eCW1 ([facility]) carvedilol 12.5 MG Oral Tablet Carvedilol 12.5 MG Carvedilol 12.5 MG 08/14/2020 12:00:00 AM EDT 1.0 {tablet_with_food} active Carvedilol 12.5 MG eCW1 ([facility]) carvedilol 12.5 MG Oral Tablet carvedilol (COREG) 12.5 MG tablet carvedilol (COREG) 12.5 MG tablet 08/14/2020 12:00:00 AM EDT 12.5 mg Oral active Take 12.5 mg by mouth 2 (two) times a day [facility] carvedilol 12.5 MG Oral Tablet Carvedilol 12.5 MG Carvedilol 12.5 MG 08/14/2020 12:00:00 AM EDT 1.0 {tablet_with_food} active Carvedilol 12.5 MG eCW1 ([facility]) carvedilol 12.5 MG Oral Tablet Carvedilol 12.5 MG Carvedilol 12.5 MG 08/14/2020 12:00:00 AM EDT 1.0 {tablet_with_food} active Carvedilol 12.5 MG eCW1 ([facility]) carvedilol 12.5 MG Oral Tablet Carvedilol 12.5 MG Carvedilol 12.5 MG 08/14/2020 12:00:00 AM EDT 1.0 {tablet_with_food} active Carvedilol 12.5 MG eCW1 ([facility]) carvedilol 12.5 MG Oral Tablet Carvedilol 12.5 MG Carvedilol 12.5 MG 08/14/2020 12:00:00 AM EDT 1.0 {tablet_with_food} active Carvedilol 12.5 MG eCW1 ([facility]) carvedilol 12.5 MG Oral Tablet Carvedilol 12.5 MG Carvedilol 12.5 MG 08/14/2020 12:00:00 AM EDT 1.0 {tablet_with_food} active Carvedilol 12.5 MG eCW1 ([facility]) carvedilol 12.5 MG Oral Tablet Carvedilol 12.5 MG Carvedilol 12.5 MG 08/14/2020 12:00:00 AM EDT 1.0 {tablet_with_food} active Carvedilol 12.5 MG eCW1 ([facility]) carvedilol 12.5 MG Oral Tablet CARVEDILOL 08/14/2020 12:00:00 AM EDT tablet 60 TAKE ONE TABLET BY MOUTH TWICE A DAY WITH FOOD TAKE ON E TABLET BY MOUTH TWICE A DAY WITH FOOD SOLD: 08/16/2020 [facility] carvedilol 12.5 MG Oral Tablet Carvedilol 12.5 MG Carvedilol 12.5 MG 08/14/2020 12:00:00 AM EDT 1.0 {tablet_with_food} active Carvedilol 12.5 MG eCW1 ([facility]) carvedilol 12.5 MG Oral Tablet CARVEDILOL 08/14/2020 12:00:00 AM EDT tablet 60 TAKE ONE TABLET BY MOUTH TWICE A DAY WITH FOOD TAKE ON E TABLET BY MOUTH TWICE A DAY WITH FOOD SOLD: 12/19/2020 [facility] carvedilol 12.5 MG Oral Tablet Carvedilol 12.5 MG Carvedilol 12.5 MG 08/14/2020 12:00:00 AM EDT 1.0 {tablet_with_food} active Carvedilol 12.5 MG eCW1 ([facility]) carvedilol 12.5 MG Oral Tablet Carvedilol 12.5 MG Carvedilol 12.5 MG 08/14/2020 12:00:00 AM EDT 1.0 {tablet_with_food} active Carvedilol 12.5 MG eCW1 ([facility]) carvedilol 12.5 MG Oral Tablet Carvedilol 12.5 MG Carvedilol 12.5 MG 08/14/2020 12:00:00 AM EDT 1.0 {tablet_with_food} active Carvedilol 12.5 MG eCW1 ([facility]) carvedilol 12.5 MG Oral Tablet Carvedilol 12.5 MG Carvedilol 12.5 MG 08/14/2020 12:00:00 AM EDT 1.0 {tablet_with_food} active Carvedilol 12.5 MG eCW1 ([facility]) carvedilol 12.5 MG Oral Tablet Carvedilol 12.5 MG Carvedilol 12.5 MG 08/14/2020 12:00:00 AM EDT 1.0 {tablet_with_food} active Carvedilol 12.5 MG eCW1 ([facility]) carvedilol 12.5 MG Oral Tablet Carvedilol 12.5 MG Carvedilol 12.5 MG 08/14/2020 12:00:00 AM EDT 1.0 {tablet_with_food} active Carvedilol 12.5 MG eCW1 ([facility]) carvedilol 12.5 MG Oral Tablet Carvedilol 12.5 MG Carvedilol 12.5 MG 08/14/2020 12:00:00 AM EDT 1.0 {tablet_with_food} active Carvedilol 12.5 MG eCW1 ([facility]) carvedilol 12.5 MG Oral Tablet Carvedilol 12.5 MG Carvedilol 12.5 MG 08/14/2020 12:00:00 AM EDT 1.0 {tablet_with_food} active Carvedilol 12.5 MG eCW1 ([facility]) 25 mg 08/01/2020 12:00:00 AM [...] suspended Nicoderm CQ 21 MG/24 HR eCW1 ([facility]) 24 HR Nicotine 0.875 MG/HR Transdermal P atch [Nicoderm C-Q] Nicoderm CQ 21 MG/24HR Nicoderm CQ 21 MG/24HR 07/25/2020 12:00:00 AM EDT 1.0 {patch_to_skin} active Nicoderm CQ 21 MG/24 HR eCW1 ([facility]) 24 HR Nicotine 0.875 MG/HR Transdermal P atch [Nicoderm C-Q] Nicoderm CQ 21 MG/24HR Nicoderm CQ 21 MG/24HR 07/25/2020 12:00:00 AM EDT 1.0 {patch_to_skin} active Nicoderm CQ 21 MG/24 HR eCW1 ([facility]) 24 HR Nicotine 0.875 MG/HR Transdermal P atch [Nicoderm C-Q] Nicoderm CQ 21 MG/24HR Nicoderm CQ 21 MG/24HR 07/25/2020 12:00:00 AM EDT 1.0 {patch_to_skin} active Nicoderm CQ 21 MG/24 HR eCW1 ([facility]) 24 HR Nicotine 0.875 MG/HR Transdermal P atch [Nicoderm C-Q] Nicoderm CQ 21 MG/24HR Nicoderm CQ 21 MG/24HR 07/25/2020 12:00:00 AM EDT 1.0 {patch_to_skin} active Nicoderm CQ 21 MG/24 HR eCW1 ([facility]) 24 HR Nicotine 0.875 MG/HR Transdermal P atch [Nicoderm C-Q] Nicoderm CQ 21 MG/24HR Nicoderm CQ 21 MG/24HR 07/25/2020 12:00:00 AM EDT 1.0 {patch_to_skin} suspended Nicoderm CQ 21 MG/24 HR eCW1 ([facility]) 24 HR Nicotine 0.875 MG/HR Transdermal P atch [Nicoderm C-Q] Nicoderm CQ 21 MG/24HR Nicoderm CQ 21 MG/24HR 07/25/2020 12:00:00 AM EDT 1.0 {patch_to_skin} active Nicoderm CQ 21 MG/24 HR eCW1 ([facility]) 24 HR Nicotine 0.875 MG/HR Transdermal P atch [Nicoderm C-Q] Nicoderm CQ 21 MG/24HR Nicoderm CQ 21 MG/24HR 07/25/2020 12:00:00 AM EDT 1.0 {patch_to_skin} active Nicoderm CQ 21 MG/24 HR eCW1 ([facility]) 24 HR Nicotine 0.875 MG/HR Transdermal P atch [Nicoderm C-Q] Nicoderm CQ 21 MG/24HR Nicoderm CQ 21 MG/24HR 07/25/2020 12:00:00 AM EDT 1.0 {patch_to_skin} active Nicoderm CQ 21 MG/24 HR eCW1 ([facility]) 24 HR Nicotine 0.875 MG/HR Transdermal P atch [Nicoderm C-Q] Nicoderm CQ 21 MG/24HR Nicoderm CQ 21 MG/24HR 07/25/2020 12:00:00 AM EDT 1.0 {patch_to_skin} active Nicoderm CQ 21 MG/24 HR eCW1 ([facility]) 24 HR Nicotine 0.875 MG/HR Transdermal P atch [Nicoderm C-Q] Nicoderm CQ 21 MG/24HR Nicoderm CQ 21 MG/24HR 07/25/2020 12:00:00 AM EDT 1.0 {patch_to_skin} active Nicoderm CQ 21 MG/24 HR eCW1 ([facility]) 24 HR Nicotine 0.875 MG/HR Transdermal P atch [Nicoderm C-Q] Nicoderm CQ 21 MG/24HR Nicoderm CQ 21 MG/24HR 07/25/2020 12:00:00 AM EDT 1.0 {patch_to_skin} active Nicoderm CQ 21 MG/24 HR eCW1 ([facility]) 24 HR Nicotine 0.875 MG/HR Transdermal P atch [Nicoderm C-Q] Nicoderm CQ 21 MG/24HR Nicoderm CQ 21 MG/24HR 07/25/2020 12:00:00 AM EDT 1.0 {patch_to_skin} active Nicoderm CQ 21 MG/24 HR eCW1 ([facility]) 21 mg/24 hr 07/25/2020 12:00:00 AM EDT patch 24 hour 28 APPLY ONE PATCH TOPICALLY TO SKIN DAILY APPLY ONE PATCH TOPICALLY TO SKIN DAILY SOLD: 07/27/19 21 [facility] 24 HR Nicotine 0.875 MG/HR Transdermal P atch [Nicoderm C-Q] Nicoderm CQ 21 MG/24HR Nicoderm CQ 21 MG/24HR 07/25/2020 12:00:00 AM EDT 1.0 {patch_to_skin} active Nicoderm CQ 21 MG/24 HR eCW1 ([facility]) 24 HR Nicotine 0.875 MG/HR Transdermal P atch [Nicoderm C-Q] Nicoderm CQ 21 MG/24HR Nicoderm CQ 21 MG/24HR 07/25/2020 12:00:00 AM EDT 1.0 {patch_to_skin} active Nicoderm CQ 21 MG/24 HR eCW1 ([facility]) 24 HR Nicotine 0.875 MG/HR Transdermal P atch [Nicoderm C-Q] Nicoderm CQ 21 MG/24HR Nicoderm CQ 21 MG/24HR 07/25/2020 12:00:00 AM EDT 1.0 {patch_to_skin} active Nicoderm CQ 21 MG/24 HR eCW1 ([facility]) 24 HR Nicotine 0.875 MG/HR Transdermal P atch [Nicoderm C-Q] Nicoderm CQ 21 MG/24HR Nicoderm CQ 21 MG/24HR 07/25/2020 12:00:00 AM EDT 1.0 {patch_to_skin} active Nicoderm CQ 21 MG/24 HR [facility] [facility] 24 HR Nicotine 0.875 MG/HR Transdermal P atch [Nicoderm C-Q] Nicoderm CQ 21 MG/24HR Nicoderm CQ 21 MG/24HR 07/25/2020 12:00:00 AM EDT 1.0 {patch_to_skin} active Nicoderm CQ 21 MG/24 HR eCW1 (Formerly [facility]) 24 HR Nicotine 0.875 MG/HR Transdermal P atch [Nicoderm C-Q] Nicoderm CQ 21 MG/24HR Nicoderm CQ 21 MG/24HR 07/25/2020 12:00:00 AM EDT 1.0 {patch_to_skin} active Nicoderm CQ 21 MG/24 HR eCW1 (Formerly [facility]) 24 HR Nicotine 0.875 MG/HR Transdermal P atch [Nicoderm C-Q] Nicoderm CQ 21 MG/24HR Nicoderm CQ 21 MG/24HR 07/25/2020 12:00:00 AM EDT 1.0 {patch_to_skin} active Nicoderm CQ 21 MG/24 HR eCW1 (Formerly [facility]) 24 HR Nicotine 0.875 MG/HR Transdermal P atch [Nicoderm C-Q] Nicoderm CQ 21 MG/24HR Nicoderm CQ 21 MG/24HR 07/25/2020 12:00:00 AM EDT 1.0 {patch_to_skin} active Nicoderm CQ 21 MG/24 HR eCW1 (Formerly [facility]) 24 HR Nicotine 0.875 MG/HR Transdermal P atch [Nicoderm C-Q] Nicoderm CQ 21 MG/24HR Nicoderm CQ 21 MG/24HR 07/25/2020 12:00:00 AM EDT 1.0 {patch_to_skin} active Nicoderm CQ 21 MG/24 HR eCW1 (Formerly [facility]) 24 HR Nicotine 0.875 MG/HR Transdermal P atch [Nicoderm C-Q] Nicoderm CQ 21 MG/24HR Nicoderm CQ 21 MG/24HR 07/25/2020 12:00:00 AM EDT 1.0 {patch_to_skin} active Nicoderm CQ 21 MG/24 HR eCW1 (Formerly [facility]) 24 HR Nicotine 0.875 MG/HR Transdermal P atch [Nicoderm C-Q] Nicoderm CQ 21 MG/24HR Nicoderm CQ 21 MG/24HR 07/25/2020 12:00:00 AM EDT 1.0 {patch_to_skin} active Nicoderm CQ 21 MG/24 HR eCW1 (Formerly [facility]) 24 HR Nicotine 0.875 MG/HR Transdermal P atch [Nicoderm C-Q] Nicoderm CQ 21 MG/24HR Nicoderm CQ 21 MG/24HR 07/25/2020 12:00:00 AM EDT 1.0 {patch_to_skin} active Nicoderm CQ 21 MG/24 HR eCW1 (Formerly [facility]) 24 HR Nicotine 0.875 MG/HR Transdermal P atch [Nicoderm C-Q] Nicoderm CQ 21 MG/24HR Nicoderm CQ 21 MG/24HR 07/25/2020 12:00:00 AM EDT 1.0 {patch_to_skin} active Nicoderm CQ 21 MG/24 HR eCW1 (Formerly [facility]) pantoprazole 40 MG Delayed Release Oral Tablet PANTOPRAZOLE SODIUM 07/18/2020 12:00:00 AM EDT tablet,delayed release (DR/EC) 30 T MORGAN ONE TABLET BY MOUTH EVERY DAY TAKE ONE TABLET BY MOUTH EVERY DAY SOLD: 07/19/2020 [facility] albumin human (ALBUMINAR) 25 % bottle 37.5 g [id number] 07/16/2020 11:15:00 AM EDT 37.5 g Intravenous completed 37 .5 g, Intravenous, at 150 mL/hr, Once, On Thu07/16/20 at 1115, For [address] [facility] Medication administered onsite lidocaine (XYLOCAINE) 2 % injection [id number] 07/16/2020 10:16:18 AM EDT completed Code/Trauma Medicati on, Starting on Thu07/16/[address] [facility] Medication administered onsite Lidocaine 5 % External Patch (LIDODERM) [id number] 07/17/19 12:00:00 AM EDT 1 {patch} Transdermal active Place 1 pa tch onto the skin every 24 (twenty-four) hours 12 hours on 12 hours off for back pain [facility] sennosides, ASSISTED 8.6 MG Oral Tablet senna tablet 2 tablet sen na tablet 2 tablet 07/15/2020 10:00:00 PM EDT 2 {tbl} Oral active 2 tablet, Oral, Nightly, First dose on 07/15/20 at 2200, For [address] [facility] Medication administered onsite lidocaine (LIDODERM) 5 % patch 1 patch [id number] 05:00:00 PM EDT 1 {patch} Transdermal active 1 patch, T ransdermal, Every 24 hours, First dose on 07/15/20 at 1700, For 30 days
Apply to thoracic spine for pain every day 12 hours on - 12 hours off
Time to remove patch: 5:[address] [facility] Medication administered onsite Acetaminophen 325 MG Oral [...] mg from all sources in [address]
[facility] Medication administered onsite carvedilol 6.25 MG Oral Tablet carvedilol (COREG) tabl et 6.25 mg carvedilol (COREG) tablet 6.25 mg 07/15/2020 09:00:00 AM EDT 6.25 mg Oral active 6.25 mg, Oral, 2 Times Daily, First dose on 07/15/20 at 0900, For 30 days
Check vital signs before administering
[facility] Medication administered onsite Lactulose 667 MG/ML Oral Solution lactulose (CHRONULAC ) solution 30 mL lactulose (CHRONULAC) solution 30 mL 07/15/2020 09:00:00 AM EDT 30 mL Oral active 30 mL, Oral, Three Times Daily Standard , First dose on 07/15/20 at 0900, For [address] [facility] Medication administered onsite pantoprazole 40 MG Delayed Release Oral Tablet pantoprazole (PROTONIX) EC tablet 40 mg pantoprazole (PROTONIX) EC tablet 40 mg 07/15/2020 09:00:00 AM E DT 40 mg Oral active 40 mg, Ora l, 2 Times Daily, First dose on 07/15/20 at 0900, For 30 days
Do not crush or chew
[facility] Medication administered onsite Folic Acid 1 MG Oral Tablet folic acid (FOLVITE) table t 1 mg folic acid (FOLVITE) tablet 1 mg 07/15/2020 09:00:00 AM EDT 1 mg Oral active 1 mg, Oral, Daily Standard, First dose on 07/15/20 at 0900, For [address] [facility] Medication administered onsite Furosemide 20 MG Oral Tablet furosemide (LASIX) tablet 20 mg furosemide (LASIX) tablet 20 mg 07/15/2020 09:00:00 AM EDT 20 mg Oral activ e 20 mg, Oral, Daily Standard, First dose on 07/15/20 at 0900, For [address] [facility] Medication administered onsite Thiamine 100 MG Oral Tablet thiamine (B-1) tablet 100 mg thiamine (B-1) tablet 100 mg 07/15/2020 09:00:00 AM EDT 100 mg Oral active 100 mg, Oral, Daily Standard, First dose on 07/15/20 at 0900, For [address] [facility] Medication administered onsite Spironolactone 25 MG Oral Tablet spironolactone (ALDAC TONE) tablet 25 mg spironolactone (ALDACTONE) tablet 25 mg 07/15/2020 09:00:00 AM EDT 25 mg Oral active 25 mg, Oral, Da ashley Standard, First dose on 07/15/20 at 0900, For [address] [facility] Medication administered onsite Acetaminophen 325 MG Oral Tablet acetaminophen (TYLENO L) tablet 650 mg acetaminophen (TYLENOL) tablet 650 mg 07/15/2020 06:30:00 AM EDT 65 0 mg Oral completed 650 mg, Oral, O nce, On 07/15/20 at 0630, For 1 dose
Maximum daily dose of acetaminophen is 3,000 mg from all sources in [address]
[facility] Medication administered onsite Benzocaine 15 MG / Menthol 3.6 MG Oral L ozenge benzocaine-menthol (CEPACOL) 15- 3.6 MG per lozenge 1 lozenge benzocaine-menthol (CEPACOL) 15-3.6 MG p er lozenge 1 lozenge 07/15/2020 06:07:30 AM EDT 1 {lozenge} Mouth/Throat active 1 lozenge, Mouth/Throat, Every 2 hours PRN, Sore Throat, Starting on 07/15/20 at 0607, For [address] [facility] Medication administered onsite 25 mg 07/15/2020 12:00:00 AM EDT tablet 30 TAKE ONE TABLET BY MOUTH EVERY DAY TAKE ONE TABLET BY MOUTH EVERY DAY SOLD: 07/17/2020 [facility] carvedilol 6.25 MG Oral Tablet CARVEDILOL 07/15/2020 12:00:00 AM EDT tablet 60 TAKE ONE TABLET BY MOUTH TWICE A DAY TAKE ONE TABLET BY MOUT H TWICE A DAY SOLD: 07/17/2020 [facility] 20 mg 07/15/2020 12:00:00 AM EDT tablet 30 TAKE ONE TABLET BY MOUTH EVERY DAY TAKE ONE TABLET BY MOUTH EVERY DAY SOLD: 07/17/2020 [facility] Lactulose 667 MG/ML Oral Solution lactulose (CHRONULAC ) 10 GM/15ML solution lactulose (CHRONULAC) 10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 eCW1 ([facility]) K74.60 [id number] Unspecified cirrhosis of liver Problem 07/25/2020 12:00:00 AM EDT eCW1 ([facility]) R18.8 Ascites Other ascites Problem 07/25/2020 12:00:00 AM EDT eCW1 ([facility]) R14.0 Abdominal distension Abdominal distension [id number] 07/15/2020 12:00:00 AM EDT [facility] R18.8 Other ascites Other ascites [id number] 07/04/2020 12:00:00 AM EDT [facility] R17 [id number] Jaundice Problem 06/15/2020 12:00:00 AM ED T eCW1 ([facility]) S22.001A Traumatic burst fracture of thoracic vertebra, closed, initial encounter Traumatic burst fracture of thoracic sage tebra, closed, initial encounter [id number] 06/12/2020 12:00:00 AM EDT [facility] T14.90XA Trauma Trauma [id number] 06/12/2020 12:00:00 AM ED T [facility] E83.42 Hypomagnesemia Hypomagnesemia [id number] 06/12/2020 12:00: 00 AM EDT [facility] E87.6 Hypokalemia Hypokalemia [id number] 06/12/2020 12:00:00 AM EDT [facility] B19.20 Hepatitis C Hepatitis C [id number] 06/12/2020 12:00:00 AM EDT [facility] S22.009S Fracture of thoracic spine, unspecified fracture morphology, sequela Fracture of thoracic spine, unspecified fracture morphology, sequela [id number] 06/12/2020 12:00:00 AM EDT [facility] K72.90 Encephalopathy, portal systemic Encephalopathy, portal systemic [id number] 06/12/2020 12:00:00 AM EDT [facility] K74.60 Cirrhosis of liver with ascites Cirrhosis of liver wit h ascites [id number] 06/12/2020 12:00:00 AM EDT [facility] R27.8 Asterixis Asterixis [id number] 06/12/2020 12:00:00 AM ED T [facility] N17.9 BARTOLO (acute kidney injury) BARTOLO (acute kidney injury) [id number] 06/12/2020 12:00:00 AM EDT [facility] K70.31 Alcoholic cirrhosis of liver with ascite s Alcoholic cirrhosis of liver with ascites [id number] 03/15/2020 12:00:00 AM EST [facility] I49.3 PVC's (premature ventricular contraction s) PVC's (premature ventricular contractions) [id number] 03/10/2020 12:00:00 AM EST [facility] R94.31 Abnormal EKG Abnormal EKG [id number] 03/10/2020 12:00:00 A M EST [facility] N45.1 [id number] Epididymitis, right Problem 03/02/2020 12:00 :00 AM EST eCW1 ([facility]) K40.90 [id number] Inguinal hernia of left side wit hout obstruction or gangrene Problem 03/02/2020 12:00:00 AM EST eCW1 ([facility]) E78.5 Dyslipidemia Dyslipidemia Problem 12/11/2019 12:00:00 A M EDT eCW1 ([facility]) Surgeries/Procedures Procedure Description Date Indications Data Source(s) OFFICE OUTPATIENT NEW 45 MINUTES 12/12/2020 12:00:00 A M EDT [facility] ([facility], ) Imm: Shingrix 50mcg/0.5mL IM Zoster 12/06/2020 12:00:0 0 AM EDT eCW1 ([facility]) RADEX SPINE THORACIC 2 VIEWS <td>XR THORACIC SPINE AP AND LATERAL</td><td>Routine</td><td>09/07/2020 9:25 AM EDT</td><td> Traumatic burst fracture of thoracic vertebra, closed, initial encounter</td><td> </td> 09/07/2020 09:25:00 AM EDT Traumatic burst fracture of thoracic vertebra, closed, initial encounter [facility] Traumatic burst fracture of thoracic sage tebra, closed, initial encounter ECG ROUTINE ECG W/LEAST 12 LDS W/I&R <td>POCT AMB EKG</td><td>Routine</td><td>09/03/2020 3:29 PM EDT</td><td> PVC's (premature ventricular contractions)</td><td> </td> 09/03/2020 03:29:00 PM EDT PVC's (premature ventricular contractions) [facility] PVC's (premature ventricular contraction s) PNEUMOCOCCAL POLYSAC VACCINE 23-V 2 />YR SUBQ/IM 08/14 12:00:00 AM EDT eCW1 ([facility]) Imm: Shingrix 50mcg/0.5mL IM Zoster 08/14/2020 12:00:0 0 AM EDT eCW1 ([facility]) ABDOM PARACENTESIS DX/THER W IMAGING GUIDANCE <td>IR I MAGE GUIDED NEEDLE DRAIN PROCEDURE</td><td>Pending Discharge</td><td>07/16/2020 10:45 AM EDT</td><td></td><td></td> 07/16/2020 10:45:00 AM EDT [facility] ALBUMIN FLUID <td>ALBUMIN FLUID</td><td>Ro utine</td><td>07/16/2020 10:15 AM EDT</td><td></td><td> </td> 07/16/2020 10:15:00 AM [facility] BODY FLUID CULTURE AND GRAM STAIN <td>BODY FLUID CULTU RE AND GRAM STAIN</td><td>Routine</td><td>07/16/2020 10:15 AM EDT</td><td></td><td></td> 07/16/2020 10:15:00 AM [facility] CELL COUNT, SEROUS FLUID <td>CELL COUNT, SEROUS FLUID</td><td>Routine</td><td>07/16/2020 10:15 AM EDT</td><td></td><td> </td> 07/16/2020 10:15:00 AM [facility] BLOOD COUNT COMPLETE AUTO&AUTO DIFRNTL WBC COUNT <td>C BC AND DIFFERENTIAL</td><td>Routine</td><td>07/16/2020 3:59 AM EDT</td><td></td><td> </td> 07/16/2020 03:59:00 AM [facility] PHOSPHORUS INORGANIC <td>PHOSPHORUS LEVEL</td><td >Routine</td><td>07/16/2020 3:59 AM EDT</td><td></td><td> </td> 07/16/2020 03:59:00 AM [facility] MAGNESIUM <td>MAGNESIUM LEVEL</td><td> Routine</td><td>07/16/2020 3:59 AM EDT</td><td></td><td> </td> 07/16/2020 03:59:00 AM [facility] COMPREHENSIVE METABOLIC PANEL <td>COMPREHENSIVE METABO LIC PANEL</td><td>Routine</td><td>07/16/2020 3:59 AM EDT</td><td></td><td> </td> 07/16/2020 03:59:00 AM [facility] EKG 12-LEAD - CMAXX REPORT <td>EKG 12-LEAD - CMAXX REPORT</td><td></td><td>07/15/2020 10:25 PM EDT</td><td></td><td></td> 07/15/2020 10:25:40 PM [facility] EKG 12-LEAD - CMAXX REPORT <td>EKG 12-LEAD - CMAXX REPORT</td><td></td><td>07/15/2020 10:25 PM EDT</td><td></td><td></td> 07/15/2020 10:25:40 PM [facility] EKG 12-LEAD <td>EKG 12-LEAD</td><td>Rout ine</td><td>07/15/2020 10:25 PM EDT</td><td></td><td> </td> 07/15/2020 10:25:40 PM [facility] EKG 12-LEAD - CMAXX REPORT <td>EKG 12-LEAD - CMAXX REPORT</td><td></td><td>07/15/2020 10:24 PM EDT</td><td></td><td></td> 07/15/2020 10:24:27 PM [facility] EKG 12-LEAD - CMAXX REPORT <td>EKG 12-LEAD - CMAXX REPORT</td><td></td><td>07/15/2020 10:24 PM EDT</td><td></td><td></td> 07/15/2020 10:24:27 PM [facility] EKG 12-LEAD <td>EKG 12-LEAD</td><td>Rout ine</td><td>07/15/2020 10:24 PM EDT</td><td></td><td> </td> 07/15/2020 10:24:27 PM [facility] EKG 12-LEAD - CMAXX REPORT <td>EKG 12-LEAD - CMAXX REPORT</td><td></td><td>07/15/2020 10:23 PM EDT</td><td></td><td></td> 07/15/2020 10:23:56 PM [facility] EKG 12-LEAD - CMAXX REPORT <td>EKG 12-LEAD - CMAXX REPORT</td><td></td><td>07/15/2020 10:23 PM EDT</td><td></td><td></td> 07/15/2020 10:23:56 PM [facility] EKG 12-LEAD <td>EKG 12-LEAD</td><td>Rout ine</td><td>07/15/2020 10:23 PM EDT</td><td></td><td> </td> 07/15/2020 10:23:56 PM [facility] AMMONIA <td>AMMONIA LEVEL</td><td>Ro utine</td><td>07/15/2020 6:47 AM EDT</td><td></td><td> </td> 07/15/2020 06:47:00 AM [facility] URNLS DIP STICK/TABLET REAGENT AUTO MICROSCOPY <td>URI NALYSIS WITH MICROSCOPIC</td><td>STAT</td><td>07/15/2020 3:57 AM EDT</td><td></td><td> </td> 07/15/2020 03:57:00 AM [facility] RESPIRATORY PATHOGEN PANEL <td>RESPIRATORY PATHOGEN PANEL</td><td>Routine</td><td>07/15/2020 3:50 AM EDT</td><td></td><td> </td> 07/15/2020 03:50:00 AM [facility] COVID-19 PCR <td>COVID-19 PCR</td><td>Rou jerardo</td><td>07/15/2020 3:50 AM EDT</td><td></td><td> </td> 07/15/2020 03:50:00 AM [facility] THROMBOPLASTIN TIME PARTIAL PLASMA/WHOLE BLOOD <td>PAR TIAL THROMBOPLASTIN TIME (PTT)</td><td>Routine</td><td>07/15/2020 3:50 AM EDT</td><td></td><td> </td> 07/15/2020 03:50:00 AM [facility] PROTHROMBIN TIME <td>PROTIME INR</td><td>STAT </td><td>07/15/2020 3:50 AM EDT</td><td></td><td> </td> 07/15/2020 03:50:00 AM [facility] BLOOD COUNT COMPLETE AUTO&AUTO DIFRNTL WBC COUNT <td>C BC AND DIFFERENTIAL</td><td>Routine</td><td>07/15/2020 3:50 AM EDT</td><td></td><td> </td> 07/15/2020 03:50:00 AM [facility] PHOSPHORUS INORGANIC <td>PHOSPHORUS LEVEL</td><td >Routine</td><td>07/15/2020 3:50 AM EDT</td><td></td><td> </td> 07/15/2020 03:50:00 AM [facility] MAGNESIUM <td>MAGNESIUM LEVEL</td><td> Routine</td><td>07/15/2020 3:50 AM EDT</td><td></td><td> </td> 07/15/2020 03:50:00 AM [facility] HEPATIC FUNCTION PANEL <td>HEPATIC FUNCTION PANEL A</td><td>STAT</td><td>07/15/2020 3:50 AM EDT</td><td></td><td> </td> 07/15/2020 03:50:[address] [facility] BASIC METABOLIC PANEL CALCIUM TOTAL <td>BASIC METABOLI C PANEL</td><td>STAT</td><td>07/15/2020 3:50 AM EDT</td><td></td><td> </td> 07/15/2020 03:50:[address] [facility] RADEX SPINE THORACIC 2 VIEWS <td>XR THORACIC SPINE AP AND LATERAL</td><td>Routine</td><td>07/13/2020 9:52 AM EDT</td><td> Fracture of thoracic spine, unspecified fracture morphology, sequela</td><td> </td> 07/13/2020 09:52:22 AM EDT Fracture of thoracic spine, unspecified fracture morph ology, sequela [facility] Fracture of thoracic spine, unspecified fracture morphology, sequela ABDOM PARACENTESIS DX/THER W IMAGING GUIDANCE <td>IR I MAGE GUIDED NEEDLE DRAIN PROCEDURE</td><td>Routine</td><td>07/04/2020 1:49 PM EDT</td><td> Other ascites</td><td> </td> 07/04/2020 01:49:21 PM EDT Other ascites [facility] Other ascites BLOOD COUNT COMPLETE AUTO&AUTO DIFRNTL WBC COUNT <td>C BC AND DIFFERENTIAL</td><td>Routine</td><td>06/19/2020 12:55 AM EDT</td><td></td><td> </td> 06/19/2020 12:55:00 AM [facility] BASIC METABOLIC PANEL CALCIUM TOTAL <td>BASIC METABOLI C PANEL</td><td>Routine</td><td>06/19/2020 12:55 AM EDT</td><td></td><td> </td> 06/19/2020 12:55:00 AM [facility] PROTHROMBIN TIME <td>PROTIME INR</td><td>Rout ine</td><td>06/18/2020 6:41 PM EDT</td><td></td><td> </td> 06/18/2020 06:41:00 PM [facility] PARACENTESIS <td>PARACENTESIS</td><td>Rou jerardo</td><td>06/18/2020 5:30 PM EDT</td><td></td><td></td> 06/18/2020 05:30:10 PM [facility] BLOOD COUNT COMPLETE AUTO&AUTO DIFRNTL WBC COUNT <td>C BC AND DIFFERENTIAL</td><td>Routine</td><td>06/18/2020 8:00 AM EDT</td><td></td><td> </td> 06/18/2020 08:00:00 AM [facility] COMPREHENSIVE METABOLIC PANEL <td>COMPREHENSIVE METABO LIC PANEL</td><td>Routine</td><td>06/18/2020 8:00 AM EDT</td><td></td><td> </td> 06/18/2020 08:00:00 AM [facility] COVID-19 PCR <td>COVID-19 PCR</td><td>Rou jerardo</td><td>06/17/2020 12:25 PM EDT</td><td></td><td> </td> 06/17/2020 12:25:00 PM [facility] BLOOD COUNT COMPLETE AUTO&AUTO DIFRNTL WBC COUNT <td>C BC AND DIFFERENTIAL</td><td>Routine</td><td>06/17/2020 1:10 AM EDT</td><td></td><td> </td> 06/17/2020 01:10:00 AM [facility] PHOSPHORUS INORGANIC <td>PHOSPHORUS LEVEL</td><td >Routine</td><td>06/17/2020 1:10 AM EDT</td><td></td><td> </td> 06/17/2020 01:10:00 AM [facility] MAGNESIUM <td>MAGNESIUM LEVEL</td><td> Routine</td><td>06/17/2020 1:10 AM EDT</td><td></td><td> </td> 06/17/2020 01:10:00 AM [facility] BASIC METABOLIC PANEL CALCIUM TOTAL <td>BASIC METABOLI C PANEL</td><td>Routine</td><td>06/17/2020 1:10 AM EDT</td><td></td><td> </td> 06/17/2020 01:10:00 AM [facility] BLOOD COUNT COMPLETE AUTO&AUTO DIFRNTL WBC COUNT <td>C BC AND DIFFERENTIAL</td><td>Routine</td><td>06/16/2020 3:51 AM EDT</td><td></td><td> </td> 06/16/2020 03:51:00 AM [facility] PHOSPHORUS INORGANIC <td>PHOSPHORUS LEVEL</td><td >Routine</td><td>06/16/2020 3:51 AM EDT</td><td></td><td> </td> 06/16/2020 03:51:00 AM [facility] MAGNESIUM <td>MAGNESIUM LEVEL</td><td> Routine</td><td>06/16/2020 3:51 AM EDT</td><td></td><td> </td> 06/16/2020 03:51:00 AM [facility] BASIC METABOLIC PANEL CALCIUM TOTAL <td>BASIC METABOLI C PANEL</td><td>Routine</td><td>06/16/2020 3:51 AM EDT</td><td></td><td> </td> 06/16/2020 03:51:00 AM [facility] BLOOD COUNT COMPLETE AUTO&AUTO DIFRNTL WBC COUNT <td>C BC AND DIFFERENTIAL</td><td>Routine</td><td>06/15/2020 1:32 AM EDT</td><td></td><td> </td> 06/15/2020 01:32:00 AM [facility] PHOSPHORUS INORGANIC <td>PHOSPHORUS LEVEL</td><td >Routine</td><td>06/15/2020 1:32 AM EDT</td><td></td><td> </td> 06/15/2020 01:32:00 AM [facility] MAGNESIUM <td>MAGNESIUM LEVEL</td><td> Routine</td><td>06/15/2020 1:32 AM EDT</td><td></td><td> </td> 06/15/2020 01:32:00 AM [facility] HEPATIC FUNCTION PANEL <td>HEPATIC FUNCTION PANEL A</td><td>Routine</td><td>06/15/2020 1:32 AM EDT</td><td></td><td> </td> 06/15/2020 01:32:00 AM [facility] BASIC METABOLIC PANEL CALCIUM TOTAL <td>BASIC METABOLI C PANEL</td><td>Routine</td><td>06/15/2020 1:32 AM EDT</td><td></td><td> </td> 06/15/2020 01:32:00 AM [facility] COVID-19 PCR <td>COVID-19 PCR</td><td>Rou jerardo</td><td>06/14/2020 4:04 PM EDT</td><td></td><td> </td> 06/14/2020 04:04:00 PM [facility] RADEX SPINE THORACIC 2 VIEWS <td>XR THORACIC SPINE AP AND LATERAL</td><td>Routine</td><td>06/14/2020 12:50 PM EDT</td><td></td><td> </td> 06/14/2020 12:50:18 PM [facility] AMMONIA <td>AMMONIA LEVEL</td><td>Ro utine</td><td>06/14/2020 11:16 AM EDT</td><td></td><td> </td> 06/14/2020 11:16:00 AM [facility] SODIUM URINE <td>SODIUM, URINE, RANDOM</t d><td>Routine</td><td>06/14/2020 8:38 AM EDT</td><td></td><td> </td> 06/14/2020 08:38:00 AM [facility] OSMOLALITY URINE <td>OSMOLALITY, URINE</td><t d>Routine</td><td>06/14/2020 8:38 AM EDT</td><td></td><td> </td> 06/14/2020 08:38:00 AM [facility] BLOOD COUNT COMPLETE AUTO&AUTO DIFRNTL WBC COUNT <td>C BC AND DIFFERENTIAL</td><td>Routine</td><td>06/14/2020 3:15 AM EDT</td><td></td><td> </td> 06/14/2020 03:15:00 AM [facility] PHOSPHORUS INORGANIC <td>PHOSPHORUS LEVEL</td><td >Routine</td><td>06/14/2020 3:15 AM EDT</td><td></td><td> </td> 06/14/2020 03:15:00 AM [facility] MAGNESIUM <td>MAGNESIUM LEVEL</td><td> Routine</td><td>06/14/2020 3:15 AM EDT</td><td></td><td> </td> 06/14/2020 03:15:00 AM [facility] BASIC METABOLIC PANEL CALCIUM TOTAL <td>BASIC METABOLI C PANEL</td><td>Routine</td><td>06/14/2020 3:15 AM EDT</td><td></td><td> </td> 06/14/2020 03:15:00 AM [facility] BLOOD COUNT COMPLETE AUTO&AUTO DIFRNTL WBC COUNT <td>C BC AND DIFFERENTIAL</td><td>Routine</td><td>06/13/2020 3:49 AM EDT</td><td></td><td> </td> 06/13/2020 03:49:00 AM [facility] PHOSPHORUS INORGANIC <td>PHOSPHORUS LEVEL</td><td >Routine</td><td>06/13/2020 3:49 AM EDT</td><td></td><td> </td> 06/13/2020 03:49:00 AM [facility] MAGNESIUM <td>MAGNESIUM LEVEL</td><td> Routine</td><td>06/13/2020 3:49 AM EDT</td><td></td><td> </td> 06/13/2020 03:49:00 AM [facility] BASIC METABOLIC PANEL CALCIUM TOTAL <td>BASIC METABOLI C PANEL</td><td>Routine</td><td>06/13/2020 3:49 AM EDT</td><td></td><td> </td> 06/13/2020 03:49:00 AM [facility] BASIC METABOLIC PANEL CALCIUM TOTAL <td>BASIC METABOLI C PANEL</td><td>Routine</td><td>06/12/2020 8:08 PM EDT</td><td></td><td> </td> 06/12/2020 08:08:00 PM [facility] CT HEAD/BRAIN W/O CONTRAST MATERIAL <td>CT HEAD WITHOU T CONTRAST 26468</td><td>Routine</td><td>06/12/2020 6:29 PM EDT</td><td></td><td> </td> 06/12/2020 06:29:41 PM [facility] TRIGLYCERIDE FLUID <td>TRIGLYCERIDE FLUID</td>< td>Routine</td><td>06/12/2020 1:54 PM EDT</td><td></td><td> </td> 06/12/2020 01:54:00 PM [facility] ALBUMIN FLUID <td>ALBUMIN FLUID</td><td>Ro utine</td><td>06/12/2020 1:54 PM EDT</td><td></td><td> </td> 06/12/2020 01:54:00 PM [facility] CUL BACT XCPT URINE BLOOD/STOOL AEROBIC ISOL <td>BODY FLUID CULTURE AND GRAM STAIN</td><td>Routine</td><td>06/12/2020 1:54 PM EDT</td><td></td><td> </td> 06/12/2020 01:54:00 PM [facility] CELL COUNT, SEROUS FLUID <td>CELL COUNT, SEROUS FLUID</td><td>Routine</td><td>06/12/2020 1:54 PM EDT</td><td></td><td> </td> 06/12/2020 01:54:00 PM [facility] PROTEIN TOTAL XCPT REFRACTOMETRY OTH SRC <td>TOTAL PRO TEIN, BODY FLUID</td><td>Routine</td><td>06/12/2020 1:54 PM EDT</td><td></td><td> </td> 06/12/2020 01:54:00 PM [facility] ECHO TTHRC R-T 2D W/WOM-MODE COMPL SPEC&COLR DOP <td>E CHOCARDIOGRAM 2D COMPLETE</td><td>Routine</td><td>06/12/2020 1:32 PM EDT</td><td></td><td> </td> 06/12/2020 01:32:22 PM [facility] CYTOLOGY NON GYNECOLOGICAL <td>CYTOLOGY NON GYNECOLOGICAL</td><td>Routine</td><td>06/12/2020 1:22 PM EDT</td><td></td><td> </td> 06/12/2020 01:22:00 PM [facility] ABDOM PARACENTESIS DX/THER W IMAGING GUIDANCE <td>NE A BDOM PARACENTESIS DX/THER W IMAGING GUIDANCE</td><td>Routine</td><td>06/12/2020 11:49 AM EDT</td><td> Alcoholic cirrhosis of liver with ascites Hepatic encephalopathy</td><td> </td> 06/12/2020 11:49:47 AM EDT Hepatic encephalopathyAlcoholic cirrhosis of liver wit h ascites [facility] Hepatic encephalopathy Alcoholic cirrhosis of liver with ascite s EKG 12-LEAD - CMAXX REPORT <td>EKG 12-LEAD - CMAXX REPORT</td><td></td><td>06/12/2020 11:33 AM EDT</td><td></td><td></td> 06/12/2020 11:33:49 AM [facility] EKG 12-LEAD - CMAXX REPORT <td>EKG 12-LEAD - CMAXX REPORT</td><td></td><td>06/12/2020 11:33 AM EDT</td><td></td><td></td> 06/12/2020 11:33:49 AM [facility] EKG 12-LEAD <td>EKG 12-LEAD</td><td>Rout ine</td><td>06/12/2020 11:33 AM EDT</td><td></td><td> </td> 06/12/2020 11:33:49 AM [facility] EKG 12-LEAD - CMAXX REPORT <td>EKG 12-LEAD - CMAXX REPORT</td><td></td><td>06/12/2020 11:33 AM EDT</td><td></td><td></td> 06/12/2020 11:33:00 AM [facility] COMPREHENSIVE METABOLIC PANEL <td>METABOLIC PANEL, COMPREHENSIVE</td><td>Routine</td><td>06/12/2020 9:49 AM EDT</td><td></td><td> </td> 06/12/2020 09:49:00 AM [facility] HEPATITIS C ANTIBODY <td>HEPATITIS C ANTIBODY</td ><td>Routine</td><td>06/12/2020 9:49 AM EDT</td><td></td><td> </td> 06/12/2020 09:49:00 AM [facility] IADNA HEPATITIS C QUANTIFICATION <td>HEPATITIS C RNA, QUANTITATIVE, PCR</td><td>Routine</td><td>06/12/2020 9:49 AM EDT</td><td></td><td> </td> 06/12/2020 09:49:00 AM [facility] MAGNESIUM <td>MAGNESIUM LEVEL</td><td> Routine</td><td>06/12/2020 9:49 AM EDT</td><td></td><td> </td> 06/12/2020 09:49:00 AM [facility] HEMOGLOBIN GLYCOSYLATED A1C <td>HEMOGLOBIN A1C</td><td>Routine</td><td>06/12/2020 9:49 AM EDT</td><td></td><td> </td> 06/12/2020 09:49:00 AM [facility] AMMONIA <td>AMMONIA LEVEL</td><td>Ro utine</td><td>06/12/2020 9:49 AM EDT</td><td></td><td> </td> 06/12/2020 09:49:00 AM [facility] XR CHEST FRONTAL ONLY 98430 <td>XR CHEST FRONTAL ONLY 26052</td><td>Routine</td><td>06/12/2020 9:25 AM EDT</td><td></td><td> </td> 06/12/2020 09:25:43 AM [facility] RESPIRATORY PATHOGEN PANEL <td>RESPIRATORY PATHOGEN PANEL</td><td>Routine</td><td>06/12/2020 8:05 AM EDT</td><td></td><td> </td> 06/12/2020 08:05:00 AM [facility] COVID-19 PCR <td>COVID-19 PCR</td><td>Rou jerardo</td><td>06/12/2020 8:05 AM EDT</td><td></td><td> </td> 06/12/2020 08:05:00 AM [facility] MRI SPINAL CANAL THORACIC W/O CONTRAST MATRL <td>MR TH ORACIC SPINE WITHOUT CONTRAST 04008</td><td>STAT</td><td>06/12/2020 6:46 AM EDT</td><td></td><td> </td> 06/12/2020 06:46:44 AM [facility] CT LUMBAR SPINE W/O CONTRAST MATERIAL <td>CT LUMBAR SP INE WITHOUT CONTRAST 24969</td><td>STAT</td><td>06/12/2020 3:58 AM EDT</td><td></td><td> </td> 06/12/2020 03:58:58 AM [facility] CT THORACIC SPINE W/O CONTRAST MATERIAL <td>CT THORACI C SPINE WITHOUT CONTRAST 64423</td><td>STAT</td><td>06/12/2020 3:58 AM EDT</td><td></td><td> </td> 06/12/2020 03:58:58 AM [facility] CT CERVICAL SPINE W/O CONTRAST MATERIAL <td>CT CERVICA L SPINE WITHOUT CONTRAST 13123</td><td>STAT</td><td>06/12/2020 3:58 AM EDT</td><td></td><td> </td> 06/12/2020 03:58:58 AM [facility] IAAD EIA HIV-1 AG W/HIV-1&HIV-2 ANTBDY SINGLE <td>HIV AG AB COMBO SCREEN</td><td>Routine</td><td>06/12/2020 1:33 AM EDT</td><td></td><td> </td> 06/12/2020 01:33:00 AM [facility] ETHYL ALCOHOL LEVEL <td>ETHYL ALCOHOL LEVEL</td> <td>Routine</td><td>06/12/2020 1:33 AM EDT</td><td></td><td> </td> 06/12/2020 01:33:00 AM [facility] PROTHROMBIN TIME <td>PROTIME INR</td><td>Rout ine</td><td>06/12/2020 1:33 AM EDT</td><td></td><td> </td> 06/12/2020 01:33:00 AM [facility] BLOOD COUNT COMPLETE AUTOMATED <td>CBC AND DIFFERENTIAL</td><td>Routine</td><td>06/12/2020 1:33 AM EDT</td><td></td><td> </td> 06/12/2020 01:33:00 AM [facility] THYROID STIMULATING HORMONE TSH <td>TSH</td><td>Routin e</td><td>06/12/2020 1:33 AM EDT</td><td></td><td> </td> 06/12/2020 01:33:00 AM [facility] THIAMINE <td>VITAMIN B1</td><td>Routi ne</td><td>06/12/2020 1:33 AM EDT</td><td></td><td> </td> 06/12/2020 01:33:00 AM [facility] PHOSPHORUS INORGANIC <td>PHOSPHORUS LEVEL</td><td >Routine</td><td>06/12/2020 1:33 AM EDT</td><td></td><td> </td> 06/12/2020 01:33:00 AM [facility] MAGNESIUM <td>MAGNESIUM LEVEL</td><td> Routine</td><td>06/12/2020 1:33 AM EDT</td><td></td><td> </td> 06/12/2020 01:33:00 AM [facility] LIPASE <td>LIPASE LEVEL</td><td>Rou jerardo</td><td>06/12/2020 1:33 AM EDT</td><td></td><td> </td> 06/12/2020 01:33:00 AM [facility] FOLIC ACID SERUM <td>FOLATE</td><td>Routine</ td><td>06/12/2020 1:33 AM EDT</td><td></td><td> </td> 06/12/2020 01:33:00 AM [facility] CYANOCOBALAMIN VITAMIN B-12 <td>VITAMIN B12</td><td>Ro utine</td><td>06/12/2020 1:33 AM EDT</td><td></td><td> </td> 06/12/2020 01:33:00 AM [facility] HEPATIC FUNCTION PANEL <td>HEPATIC FUNCTION PANEL A</td><td>Routine</td><td>06/12/2020 1:33 AM EDT</td><td></td><td> </td> 06/12/2020 01:33:[address] [facility] BASIC METABOLIC PANEL CALCIUM TOTAL <td>BASIC METABOLI C PANEL</td><td>Routine</td><td>06/12/2020 1:33 AM EDT</td><td></td><td> </td> 06/12/2020 01:33:00 AM [facility] ECG ROUTINE ECG W/LEAST 12 LDS W/I&R <td>POCT AMB EKG</td><td>Routine</td><td>03/15/2020 2:36 PM EST</td><td> Abnormal EKG PVC's (premature ventricular contractions)</td><td> </td> 03/15/2020 07:36:00 PM EST PVC's (premature ventricular contractions)Abnormal EKG [facility] PVC's (premature ventricular contraction s) Abnormal EKG ECG ROUTINE ECG W/LEAST 12 LDS W/I&R 01/13/2020 12:00: 00 AM EST eCW1 ([facility]) Immunization: Flublok Quadrivalent (18 years & older) 0.5mL IM (Influenza) 01/13/2020 12:00:00 AM EST eCW1 ([facility]) Results ID Date Data Source [id number] 12/14/2020 10:40:00 AM EDT [facility] ([facility], ) Name Value Range Interpretation Code Description Data Laura rce(s) Supporting Document(s) Ljwul-9-Mzhhiltooan [Mass/volume] in Serum or Plasma 5.9 ng/mL Normal (applies to non-numeric results) [facility] ([facility], ) THE AFP ASSAY IS PERFORMED ON THE Logic Instrument BY CHEMILUMINESCENCE AND SHOULD NOT BE COMPARED [...] % 0.0-10.91 Normal (applies to non-numeric results) [facility]) By: LAB DRAW Time: 917 ID Date Data Source [id number] 12/14/2020 10:40:00 AM [facility]) Name Value Range Interpretation Code Description Data Laura rce(s) Supporting Document(s) Prothrombin Time 16.2 s 12.7-14.5 Above high normal [facility] ([facility]) Inr 1.25 Normal (applies to non-numeric resul ts) [facility] ([facility]) THERAPUTIC HUMAN INR VALUES INDICATIONS NORMAL RANGES PROPHYLAXIS/TREATMENT OF: VENOUS THROMBOSIS 2.0-3.0 PULMONARY EMBOLISM 2.0-3.0 PREVENTION OF SYSTEMIC EMBOLISM FROM: TISSUE HEART VALVES 2.0-3.0 ACUTE MYOCARDIAL INFARCTION 2.0-3.0 VALVULAR HEART DISEASE 2.0-3.0 ATRIAL FIBRILLATION 2.0-3.0 MECHANICAL VALVES(HIGH RISK) 2.5-3.5 RECURRENT MYOCARDIAL INFARCTION 2.5-3.5 ID Date Data Source [id number] 12/14/2020 10:40:00 AM [facility] ([facility]) Name Value Range Interpretation Code Description Data Laura rce(s) Supporting Document(s) Bilirubin.conjugated [Mass/volume] in Serum or Plasma 0.6 mg/dL 0.0-0.2 Above high normal [facility] ([facility]) By: LAB DRAW Time: 917 By: LAB DRAW By: LAB DRAW Time: 917 By: LAB DRAW ID Date Data Source [id number] 12/14/2020 10:40:00 AM [facility] ([facility]) Name Value Range Interpretation Code Description Data Laura rce(s) Supporting Document(s) Blood Urea Nitrogen 20 mg/dL 7-18 Above high normal [facility] ([facility]) Glucose, Fasting 168 mg/dL 70-100 Above high normal [facility] ([facility]) Sodium Level 136 meq/L 136-145 Normal (applies to non-numeric res ults) [facility] ([facility]) Glomerular Filtration Rate 42.8 Below low normal [facility] ([facility]) <content>Units are mL/min/1.73 m2</content>
<content></content>
<content>Chronic Kidney Disease Staging per NKF:</content>
<content></content>
<content>Stage I & II GFR >=60 Normal to Mildly Decreased</content>
<content>Stage III GFR 30- 59 Moderately Decreased</content>
<content>Stage IV GFR 15-29 Severely Decreased</content>
<content>Stage V GFR <15 Very Little GFR Left</content>
<content>ESRD GFR <15 on LINE ASSIGNER</content>
<content></content> Creatinine For GFR 1.74 mg/dL 0.70-1.30 Above high normal [facility] ([facility], ) Chloride Level 102 meq/L 98-107 Normal (applies to non-numeric r esults) [facility] ([facility]) Potassium Serum 3.7 meq/L 3.5-5.1 Normal (applies to non-numeric results) [facility] ([facility]) Calcium Level 8.7 mg/dL 8.8-10.2 Below low normal [facility] ([facility], ) Anion Gap 4 meq/L 8-16 Below low normal [facility] ( [facility], ) Carbon Dioxide Level 30 meq/L 21-32 Normal (applies to non-num karla results) [facility] ([facility], ) Alt/SGPT 21 U/L 12-78 Normal (applies to non-numeric resul ts) [facility] ([facility]) Ast/Sgot 24 U/L 7-37 Normal (applies to non-numeric resul ts) [facility] ([facility], ) Total Protein 6.5 GM/DL 6.4-8.2 Normal (applies to non-numeric re sults) [facility] ([facility]) Bilirubin,Total 1.1 mg/dL 0.2-1.0 Above high normal [facility] ([facility]) Alkaline Phosphatase 150 U/L 45-117 Above high normal [facility] ([facility]) Albumin 2.1 GM/DL 3.2-5.2 Below low normal [facility] ( [facility]) Albumin/Globulin Ratio 0.5 Normal (applies to non-n umeric results) [facility] ([facility]) ID Date Data Source [id number] 12/14/2020 10:40:00 AM EDT [facility] ([facility]) Name Value Range Interpretation Code Description Data Laura rce(s) Supporting Document(s) White Blood Count 5.8 10 4.0-10.0 Normal (applies to non-numeri c results) [facility] ([facility]) Red Blood Count 3.30 10 4.30-6.10 Below low normal [facility] ([facility]) Hematocrit 30.2 % 42.0-52.0 Below low normal [facility] ( [facility]) Hemoglobin 9.8 g/dL 13.5-17.5 Below low normal [facility] ( [facility]) Mean Corpuscular Volume 91.5 fl 80.0-96.0 Normal ( applies to non-numeric results) [facility] ([facility]) Mean Corpuscular Hemoglobin 29.7 pg 27.0-33.0 Norm al (applies to non-numeric results) [facility] Mean Corpuscular HGB Conc 32.5 g/dL 32.0-36.5 Normal (applies to non-numeric results) [facility] ([facility]) Red Cell Distribution Width 16.4 % 11.5-14.5 Above high normal [facility] ([facility]) Platelet Count, Automated 55 10 150-450 Below low normal [facility] ([facility]) Lymph % 10.5 % 24.0-44.0 Below low normal [facility] ( [facility]) Neutrophils % 72.6 % 36.0-66.0 Above high normal [facility] ([facility]) Howard % 11.3 % 2.0-8.0 Above high normal [facility] ([facility]) Eos % 3.9 % 0.0-3.0 Above high normal [facility] ([facility]) Baso % 1.0 % 0.0-1.0 Normal (applies to non-numeric resul ts) [facility] ([facility]) Neutrophils # 4.2 10 1.5-8.5 Normal (applies to non-numeric re sults) [facility] ([facility]) Nucleated Red Blood Cell % 0.0 % 0-0 Normal (applies to n on-numeric results) [facility] ([facility]) Immature Granulocyte % 0.7 % 0-3.0 Normal (applies to non-n umeric results) [facility] ([facility]) Lymph # 0.6 10 1.5-5.0 Below low normal [facility] ( [facility]) Howard # 0.7 10 0.0-0.8 Normal (applies to non-numeric resul ts) [facility] ([facility]) Eos # 0.2 10 0.0-0.5 Normal (applies to non-numeric resul ts) [facility] ([facility]) Baso # 0.1 10 0.0-0.2 Normal (applies to non-numeric resul ts) [facility] ([facility]) ID Date Data Source [id number] 10/16/2020 01:34:00 PM EDT [facility] Name Value Range Interpretation Code Description Data Laura rce(s) Supporting Document(s) SARS coronavirus 2 RNA [Presence] in Res piratory specimen by BRYCE with probe detection NEGATIVE [facility] This lab was ordered by [facility] a nd reported by [facility]. ID Date Data Source [id number] 09/19/2020 12:06:06 PM EDT [facility] Name Value Range Interpretation Code Description Data Laura rce(s) Supporting Document(s) Progress Note [facility] GAHQZk3lVnLHAdZi04/HFTkqWWRho8AqEElsQEh0XTbnQCMeJ9MuBEC1rV6nANP9OJhHOrNxOsVwMjB3 lbm [file] DQogICAgICAgICAgICAgICAgICAgICAgICAgICAgIC AgICAgICAgICAgICAgICAgICAgICAgICAgICAgICAgICAgICAgICAgICAgICAgICAgICAgICAgICAgIC AgICAgICAgICAgDQogICAgICAgICAgICAgICAgICAgICAgICAgICAgICAgICAgICAgICAgICAgICAgIC AgICAgICAgICAgICAgICAgICAgICAgICAgICAgICAg ICAgICAgICAgICAgICAgICAgICAgDQogICAgICAgICAgICAgICAgICAgICAgICAgICAgICAgICAgICAg ICAgICAgICAgICAgICAgICAgICAgICAgICAgICAgICAgICAgICAgICAgICAgICAgICAgICAgICAgICAg ICAgDQogICAgICAgICAgICAgICAgICAgICAgICAgIC AgICAgICAgICAgICAgICAgICAgICAgICAgICAgICAgICAgICAgICAgICAgICAgICAgICAgICAgICAgIC AgICAgICAgICAgICAgDQogICAgICAgICAgICAgICAgICAgICAgICAgICAgICAgICAgICAgICAgICAgIC AgICAgICAgICAgICAgICAgICAgICAgICAgICAgICAg ICAgICAgICAgICAgICAgICAgICAgICAgDQogICAgICAgICAgICAgICAgICAgICAgICAgICAgICAgICAg ICAgICAgICAgICAgICAgICAgICAgICAgICAgICAgICAgICAgICAgICAgICAgICAgICAgICAgICAgICAg ICAgICAgDQogICAgICAgICAgICAgICAgICAgICAgIC AgICAgICAgICAgICAgICAgICAgICAgICAgICAgICAgICAgICAgICAgICAgICAgICAgICAgICAgICAgIC AgICAgICAgICAgICAgICAgDQogICAgICAgICAgICAgICAgICAgICAgICAgICAgICAgICAgICAgICAgIC AgICAgICAgICAgICAgICAgICAgICAgICAgICAgICAg ICAgICAgICAgICAgICAgICAgICAgICAgICAgDQogICAgICAgICAgICAgICAgICAgICAgICAgICAgICAg ICAgICAgICAgICAgICAgICAgICAgICAgICAgICAgICAgICAgICAgICAgICAgICAgICAgICAgICAgICAg ICAgICAgICAgDQogICAgICAgICAgICAgICAgICAgIC AgICAgICAgICAgICAgICAgICAgICAgICAgICAgICAgICAgICAgICAgICAgICAgICAgICAgICAgICAgIC FhTGPbTAAoKCXjKDPoSHFrIKJtESy2X3ntYGRxTAJtYN0dBSr5Af8+YPoESrLmFMQ8qsUvqM7OUV4th8 ZoXVfqRGKwc3DkVYf4CC4TFKIaAHsjQA5XAMkjnu6I DHUqYPGpyLRCm8kdXvAiPTU9XBTfRobcGR7PDGEiK0wkdiCtOQHeWGZTZU8IMtZdT9VbcS22RJEUQo1+ VHgunlZzAwgRMnZ1JTBwa1ThIDh0PM7WMKUqBpvel2ByJuRiBUAGUBhuOK7LQHB0ZCLsXIOjNv6RBLWf T069ciPuYD6HDf9BLrIjLM3ctg6SHiMsUMMlKbbJFx m9RTbfOM3OdURfFViOxf4ximXbwpFOi7LnbmKwbSLAsXpfjHWcUTEeWKQ9KMdvMEofLDLlJYJhAd5tSa 7mZSDkMDC1CvKoUKBZWX8VEMSxVVFsaLQnQAEzAIZASA7VIPwtRJO0OQBtzzNucQNnEHtbXC9SWWIzou QgMTkgMCBSDQo+Mc1YZW4pa8HpHNrwCQQaDE2fpx2F UDhGIvMuL0Z8fMWzZ1L1QMxpHe2ZCSLgSIIyPOtfDXTNSYmsPW3VPK3omsJ6XP1HhBMrLHCmWIUrlDJa QBy0S27mjLQaNDwqQU2UOVR+Fady+Yn4OIJXwVAMbMQGiYnSoYADWSyLnR6ZrH9PCa7XmJ6ZtFU81gWft rbJaCUscXX3UGX3xMKWbHDRVCN1EiFJqxX1kvxQfQN QbZFLOQpFyV62khVGxONSaLWF3VIEiQx5GDLYcQ0ZrhuUjeElholKsFRCrIBXGEK7BJYlheyQbuOUpvG phEH40fYjzMV0YJu5BNoXhYI7ljg4ZuZZsQp2BIYPzEv3WGXCmYAGrQSEvLSG2EKAcQlKbDKztDYDiIZ TsMKW7MKQdJAOnNU7FViOvQMJhCLaeLPSuFRIaQXXe po5ZLGZwSSKhSLd5SPZgVZFuFKWqVOsjIJTbSZGoNCR6PQViNVIeAC9VVsFsVDJcVMU5UeLeQYQtIUVt tk1NMJLrSDExQmN9OMUlUJBgCOVkYStrPPIkRNQfAMG9KGQzKHFkBO0WXbTlNYLsDTSpGpIcSFEaHUPr rn6HNLJpQMMsSxAnIITkRCMtSJWxJMfoYMKkKJK3Od FmFAAjYKCjZK5BFxAqKQGlXDW2HxBpPKCkGMMnmg9UNJCdQFVlWSo2UxTpVWVqPCMtIMlsEZNjDXP2ZN H0GFRxUFYyHI1QXfSuRVGjMJN3GrIpWSPlNCHnux1KJIFcYKKuFgPiBrLqCGEaJHOxSIhrQYQpBKB0CL luPSTtJEUnEC1THzMtTYVkTQvwNIjzRABaMJUohv9L SBZkYZLtVyVqMCRvWXJkPELuJNzrOXKjNEH1VML9XQCwKKFrBC5MHvTtYYJnCJw8HwgtTCNpOJUvld9Y MQKsYPTvXHR6EAFkWOCnRYFaPIn6ggEoqQXgGCe5ZJ5FM8WtgiNpYoIANg2Aa698AXHuKRThGr1UM2of Cu3mGJDkEGMBXx5HSSu1IDAwHNXwNaP1UeusRKg7ZI AqGWTqPwIuRdJ6HJBsSPD+YYe4VyM8GjN4FHToHTM8ZAwpCrKeKODwGPZ1UPw4QoR2YZ4nTRPXGc4+DQ tlpOIdeJpyRLOJKuB9TxJxUVwrIPFLWp7O ID Date Data Source [id number] 09/07/2020 11:20:40 AM EDT [facility] Name Value Range Interpretation Code Description Data Laura rce(s) Supporting Document(s) Progress Note [facility] GOVECr5sDfNNTdXb09/HKMlfAIKkb4WbCMnsAXw8GJlbETSbJ6TyXFK1hV1qTWL7ECsMSeLtSnMgZlQ8 lbm ZzOmnZYmRzYCSqVfgVHuYaBQuiIropuCMwQF2RvRQ3CUBfH02jJYTmLDAxM4BnDMJmObI+Ou1TLSCscT KcOF9MOqyJ6C1gq6q9De9+iU3OAsmpopz4DelCLxrZ7FCDMTOZEqp9nhu3QQ9a8g8OFw1eH9/lb13qAr Oyjy7O3vl04btXqIMJ1Pav+KO1NIE4QQG/rmI2zwl9 nlj+t/pnrJUYXYu//02sH/UI8nG3W0HS7DBvZJ4xjlX/58zYO5m8KBvjFGWzhxFFMxjcxroZD9XDkqC7 8kw6ArodrW5xq+OkQwoIwnXhAXb6eqItoAHQXecUBNa4CwLan/MrARJigVDcRgvUQ6pwUOENgrZeomL+ n0jYPFQ96hwKJ/L7YBHTElGiasEBDO+PQpxeULHU97 9jvQ7ieBH0v2HFKGId4+soDjnAxMi7ChisSPlswdxiakVhiCrmwYW7mHw1Q9fF/LaSn1a6ugmspuVC+W CfZ+KCFz/KKpOKrKf5TICIQ2gu1gZ9bAkde7wm7JtNA1ftlfFZV5z31VSr1c6kcyl+neY1Yfp7tNi8G5 xxFznxF5DuGqikUj1GpnW41FmoqDxvK/nfqMttrXP8 SANDRA+IBhovV2unXrf4VUxAIr0fC9mxNQHWAVWulNzKKAjFXCYdRzaMz3U5au8jExl6hf6Jb2NV1KCvtNbl [file] SdFsKvZAGwH6R3SlM5INSbYw8xEEDPPi6+PUyriKMebStcGDJVToQyKoW2VJmqZJLNYk8R ID Date Data Source [id number] 09/07/2020 10:37:33 AM EDT [facility] XR THORACIC SPINE AP AND LATERALFINAL [...] rce(s) Supporting Document(s) ID Date Data Source [id number] 07/27/2020 11:43:38 AM EDT [facility] Name Value Range Interpretation Code Description Data Laura rce(s) Supporting Document(s) History and Physical [facility] EXABLr2fHkHMXiFr08/SKToaQVZxi1NbBLhiKEz7PEppUPTfH6TdMMX7kF7vWVE0VTlWSaFhPvDtMqT9 lbm [file] uMJfvTxoTSUZZyCnBFBmLOckRTLXQy2D ID Date Data Source [id number] 07/18/2020 09:44:19 AM EDT [facility] IR IMAGE GUIDED NEEDLE DRAIN PROCEDUREFI [...] rce(s) Supporting Document(s) ID Date Data Source [id number] 07/17/2020 01:52:43 PM EDT [facility] Name Value Range Interpretation Code Description Data Laura rce(s) Supporting Document(s) ED Provider Note [facility] TTTNUn1fWpHAVlSx48/TADonVRVlm3WvMStoJMg0PAmpNXIgT2TcZOB9zC4lWZU4YJnLCrUcDhNzMMX6 lbm [file] f8D57idJRxVXxbLR3DZYZ+Fady+Qz8ZEMUjXVSlYAIa EfWkUCHNFxObD5DvW4PKq3UvE6FvQC91hVnuobDwSDohKT4ZDP8zUBZeVPSMTO9NhARgcF7sbwAuFXUf DILLLoSwB86xiEGhVXPfMNW8ZKNkDz1QVZVlD3VehmMtoIzjkeGnCLJjKVALXN1NIAokfpBcpIBuqFxr MF76dJsvBV4KWn6VRoLaOF8qhw2BoXUsRi8RFUK3UC 3SCMEmAUXxCWRsAVX2WBNoNgPxPEwiESIsWXRrNNY5BELrOJLdDT6BJtXyGNTlJFMtROFpWMSwZYXwyt 7KPUTlOKE5Glw9DxIdHRTxKHGhOZusSRFfJVKdSRH6RVEzFFInEH6NAkNrCTZsBHIaMIKnWKJqSVAgbb 4ZVLAuXUEzJiM7PMZoTIUaBNFzNTfqORSfUAG6Mhop UMPdWYMiBN2NDyGaCOYlOIJ5HREtKHHqWYCsuu6VHTZbUCRrGGd2BHMoIAXcGSLlZPotFMDhIPH8UMH7 CXWbFBLyJC1REzQvCDZsQPR6ZURyVSMmRACpfk9IKVEcYDRzZUG8XSZsZGFcZNCsCRvtVVRcFOR1LlE7 ILBwVQNtCF2XVhRzPNEqYGH5YNMoFCYhHLCzwo6XWV IgNGUsFnW5BtDiBDSkDQZtAVemFQPdLBR1Pkj2DPTkVDRtVP1AMpKrXIYbDdIuSxElEOYsFNUldl3UWH YdAKTeOCV0ScBqFWXhBDEjOZcoPTEiBOHqBTjoMFCpKHSxSP1COgMoUCNmMhJiRBqySGYfOTGfmz5NZY OfMBExFVF1FbBfBAJlQTEdAVgqDIRyGLV1CQD9KJKd QBUpEA3SLtVkBBRaDoL4JilfYCCxGZGfzt1APGSyHCEzEFN3RtPbLKWmADLjUCpvUBJeMFA0VTw6PTBd SEGjXY6OOlWuTOAvWyBoDwPmMTAmNGFnfr8BQAWoDCDgBzCeZqTqJYKgRQGqMWwwLFFqMLS6JxNoMBHh HHFyEU3ELsOoAUHcFty6ILKdWIExKZYlpq7ZAUDkXW GmPHzkTEFxWYEpHNBbWAexEQByOYE3YFY6PKKrGJYrTG6FAfUbAUCiNjidLynaJTNuHSUtaa7SBCObKY ZgSMM7CtPuAUFoPCAgXQplWXJsSFW8OfAxXXFsJFNcUZ4IJmYjXFXfERA3COczRVDkRYTmsn1OJVRwBU L8THu5ICWlODYpCYAqCLysQSHhFVToNPUkHFYkJUFd BH8KOkCkWBYgEJM4YKKbAJNaRCWkdw9BYJGmDWP5Feg7WKLvAMMyKQQiIBbuSKLlZXVvCCFcWEGjGDCm GN4FRpJiEVNaSPIbOpflJQTaFIHajd0HYIIeZOD4CfO5KOVlXJTiZZMyEKnxXKFmYQEhKZQ2FUIaXUMu MK3UUbGlXHlrLEDXXmf0ASexE3f1LKZ2OL9HX5Rys2 SxWRUhKTSWNNqkAU8yzjIoKXRhMk7HU4wNXzn4YOYfJDPoXKNzF4Y7UBLvRyPlYIX0SbBtSavbIVOnFF 0cTXbuRJSsGzI9UELcTFd7WHZpVMH5LNF9JUDcQIJoJLQ4CnQtCV0CAl0ZGhK8CPO3zAEbMb4OQAH5Rm HDGkRiCH9JKCq= ID Date Data Source [id number] 07/16/2020 04:12:08 PM EDT [facility] Name Value Range Interpretation Code Description Data Laura e(s) Supporting Document(s) Discharge Summary [facility] ZUTIBm3sUkATGmBw18/EGPjaCDWod5IwBPcgBXs9ZIqjBFHnB2NgNSB1uP7tHEL2GQlMCoUiLuGyKMH2 lbm QsHffZZsOrZNJwXiaXDlZrRHpqXxuqzWFlHW1GvNV7IQTkQ33uTEYzHCBcE6CqRGD8XFu+Ey4FSTUgsD IqFK2XCimL8H6xl0yLPb4ozm0Uq8HqUED0yKn382fhHGXUV9EowBROzZmXQNA4YvtAPOMz8/PgDp9PLe dRMeNII12f1LmIpBL5q9m8+0SEQTggv9+UirW6MDbU /9Y/r1nB4FJ54O+blupK32cyz+wicoNyIiesbsh/quRrZ36os/8qFRXbC6cWlEZTIRMtMplIKG3OE198 I67/KlMh7kD6iMWiyGI9wdRnRvjDrjEwUgFsbSipb9to+MtcQac1YP7qHRNX2HjYBXFNzvsQETol/OXr CrtE0vHBNZgP/5pGRSPC9pZLYBTfW9BJba9KLPK/+a [file] lFTtv/YW/manpower development specialist+5SPS1gTnP8sUnrVo41j/jGs21rByUNXKSPPe/0XsoHFz5rOU4AM8sGaOxNqEF+lER5Wj aXMH6OfKN0GN45M+wY062axfjA7akPGneC7+phVLq6e/sRZ9Ju9bmSWv0/Z/1g+m7hScRjKxZgqbciBe n0i3a2yqSmlnGXreueL+1AilTgqdr9Paoo+Coz+dsH /2IJv4UD53bCnn3Dew7AIIY/V1GoEARzvEhcbEHsd30g3u4eLRnXrL/aca1GeSZbtsytbUv1JZ6m8QaU Kzxjcx0bJhualtWacdjiRD9JuktFKtVT4wnFKMvhisZMuoPlqiegKPdTkxCcWKxYHDyIX5whJMSpCDRM UFFKB9VHCOdeLPHhloYb67FDIPb+T+abLKDtkcS7NJ ZHnAv4NnULp1jl+nOSxmmYaLybN4pyDkxux82usRQeBMy0KVRKpopm1qroDKq14BTCiHvCtGAOdG1x2J UbkaeIzJHzfcyEi5FRk1bxRs3sYy4N+E58z+j3X20nM5ugBt9by74yn8mEAd59N2K2XoE6MiMKArPaPS +jZ+xsK/BeOhMNZqi0gLgpe6yd4T4Of+p/Gu4lxCob 1rPqL+bZzctbZ04gOQrVhBQSQAXEh+l4cqbJt7Jb2Bvpez2yTzA4Japn3OpAmpOdmLo7anBThC+FzJc8 W540TSG50Gup06NKyM9xFOzKld4JvHyfdfUmjUgzceoZ0CSx4SC/Uhc/pJMpZLKLxkivUUIgEUH7Xrij TAEZALcziVZGTTYPNaPD5XCNNBbg4XkZlHdampp5S6 [file] AgICAgICAgICAgICAgICAgICAgICAgICAgICAgICAgICAgICAgICAgICAgICAgICAgICAgICAgICAgIC AgICAgICAgICAgICAgICAgICAgICAgICAgICAgICAgICAgICANCiAgICAgICAgICAgICAgICAgICAgIC AgICAgICAgICAgICAgICAgICAgICAgICAgICAgICAg ICAgICAgICAgICAgICAgICAgICAgICAgICAgICAgICAgICAgICAgICAgICAgICANCiAgICAgICAgICAg ICAgICAgICAgICAgICAgICAgICAgICAgICAgICAgICAgICAgICAgICAgICAgICAgICAgICAgICAgICAg ICAgICAgICAgICAgICAgICAgICAgICAgICAgICANCi AgICAgICAgICAgICAgICAgICAgICAgICAgICAgICAgICAgICAgICAgICAgICAgICAgICAgICAgICAgIC AgICAgICAgICAgICAgICAgICAgICAgICAgICAgICAgICAgICAgICANCiAgICAgICAgICAgICAgICAgIC AgICAgICAgICAgICAgICAgICAgICAgICAgICAgICAg ICAgICAgICAgICAgICAgICAgICAgICAgICAgICAgICAgICAgICAgICAgICAgICAgICANCiAgICAgICAg ICAgICAgICAgICAgICAgICAgICAgICAgICAgICAgICAgICAgICAgICAgICAgICAgICAgICAgICAgICAg ICAgICAgICAgICAgICAgICAgICAgICAgICAgICAgIC ANCiAgICAgICAgICAgICAgICAgICAgICAgICAgICAgICAgICAgICAgICAgICAgICAgICAgICAgICAgIC AgICAgICAgICAgICAgICAgICAgICAgICAgICAgICAgICAgICAgICAgICANCiAgICAgICAgICAgICAgIC AgICAgICAgICAgICAgICAgICAgICAgICAgICAgICAg ICAgICAgICAgICAgICAgICAgICAgICAgICAgICAgICAgICAgICAgICAgICAgICAgICAgICANCiAgICAg ICAgICAgICAgICAgICAgICAgICAgICAgICAgICAgICAgICAgICAgICAgICAgICAgICAgICAgICAgICAg ICAgICAgICAgICAgICAgICAgICAgICAgICAgICAgIC AgICANCiAgICAgICAgICAgICAgICAgICAgICAgICAgICAgICAgICAgICAgICAgICAgICAgICAgICAgIC AgICAgICAgICAgICAgICAgICAgICAgICAgICAgICAgICAgICAgICAgICAgICANCjw/xGBmV4efhVKfot C2T8ekVz8ZEy0SUC6yk7HbITXiPIjmngEqMnjMKlIi JJZfVzsBJbt1USnjFV4DeINyI5PkR7MqYSxmGJ5IDIGaWRMriUQyYSJvEIPwCcX0EBHxMXxdZT2BrZUc JFtbAQAkQNUyDwVhFPAqUNTsHZCaDXSmLESGSKKtFWZzYpHnCHdsOE0Ys6PwaYI5ROp+Ob0MMF4xq6Yn FRaxWBMpZN7omh1PSEnXTmLgD0DausB2KJN3WRJoWz 5ACLRtRAAwkGGmNZStFYFCNjUnU1DgaZ89XTZSFj9+UMizioQvSndMOaJ3AJPiv8EiJUy5QI3SYJRtGS v6gROaIQcrW8ppjdafTTA5oS4whseqNqwiZ3Dqb9zdKAIXNELmdl2aeTjqTzIeWHIqAD9aBR4lNHWbAR EzHaJhLMDDMM9NBVWgGGMgqOEoFUGkCDGTIH1NRDkq SAJ6UFVzjgGxyPBfKIboSW0COSUoxqFbRjrzQXUYJWz+Qy4ZVT1ju6NkGNqtZSGdEQ4txt1AVOdKZvTg C8C3gFJwN8Y3DQlfAw6AFOFpYIPbBrXaUSHXZJizAG4UYN0opoH5YL0QsXFbTXZsIRTgyGUxPBz0G49p fVVeMQhoVS3EROG+Fady+Wi7KVYVfIJFzAFZuPaWmBO WHVpGgG4VdT3WLg2DmI0EcXD28nNyffaYdNAnoHU6UOQ9hGZQyHUKMXQ1JeSJxkY3uzcLjPTSoHKGYSe ZtQ54bgYOaLEVpFVD3XNOkYh2WQONvF7ArtqLgfGlycwAjOIEoHVCITC4SYOyxeuJtfYZneZpqKG72lW baOR1GWa0EIsVxBO3qcf3ZvKLxIm4STPDfCQ3MZACm WOExTYPcDXP5TNTfDzIpSUapFUEbZZUqZYK8GXMoMUWoNN7EGaRdVBMhEmB8HRRuOKDiGWGqkh0GKAFg PXWjYGb3LhPeAFRdCXFsRTzdFPCdZGFtYMQ3AALhNSQhXC1FGkFxVFPfTNQbKTFbIVUiQOLfqa9RUHQd DOEtSTTvPUVeDZVfVCQxGAjqHFJjRKJ2IwxgLVWhJY GuDK0PDfFnYLHePQv1DJJlRCPlKFQtqm9YODXkEVRcGbf0HNYzAJNwDIXxWJfrFQMqWME2CSJ5BBXhPN DhNY7HGiOcETUjPMP7VDnlBPEwWJGzfw1EKDTgNINePdX3AZRhDHIcYLDuLPfcKNAxVNH3JzyhWXGxTS UlHC3XPcBaANQaRNp5QNriEVMhIHEmxq4ADPSmHTNi ZMB5CEGtWLElYUVsFEjyMFQsKFV0YlP7CJOpMGKgYA5WMxIgIUZyZHk1GmijOPKoGAOmgr1AUBBsXYEh ZKs9PHSjKOGxWDXuFFgbFGGnZCWkWCubBIBkCBFsXW4IDxYiQRBvQwXaVnfuBXJrNHUrnw1JRYIkXYUf IoRlUHUjZHXvYWToNCltPUXfYWDlAKS6BLSyYWPvLJ 8NLuGbPAUjJlE2LUgkMAKjYEPxim3UHARzKWGiEfD9CJOsKLNaCBDeCTtaARCoDWVkHpksJRUhDBVbWS 2GEuNcNOBnFaJ2TqDgZJRrOTRtgh5DOEEmADYsMKBmKcSmGIJpRSDaOEzoHUTuHSL1HVp7HOWuAFAhTP 0VZkZxGHNeLvT0JKwaRRNmQWOnbf6AWFIwMPZqQfTn ZzYrZAHoOOWjCBl0hzGzlRBuMSv4WD2ZJ5YqmbIlFbPZWq3Lv995GIUpNXGfZn5GU2kfAb8dZFUjIZIY Hr2QBSz1CPdwM7QiE1B7OhFaCdqlKGJ4KNN8TFC9FNc7DjOgQtK+CNj3DOY8O5ExIga7ZmE3CEUaOAAs BlW2ViRdKAZiMcL8VA2tPNUYYx6+VUdiyWDvhTubPNXTOvD4BbK7ZDjzASGJRb0V ID Date Data Source [id number] 07/16/2020 04:03:20 PM EDT [facility] Name Value Range Interpretation Code Description Data Laura rce(s) Supporting Document(s) Progress Note [facility] HBSTVr4cNtBXRsDs16/GJAwuMOCtl0PdPDfbLBe8MOgcAYVpB5QpRYB2vQ0pJTG1ROzWDcTeJkEhEUV2 lbm [file] MZOhFGK4YUIzIMgpDrUoHiN2UyinSnuxYDRoMkV+ UE2xZNq+Uh7Yy4QksiM1rbOsEHp7EWVeWIigDGVOIn3B ID Date Data Source [id number] 07/16/2020 03:24:33 PM EDT [facility] Name Value Range Interpretation Code Description Data Laura rce(s) Supporting Document(s) Progress Note [facility] PMOSYe1uWvRSDuAs73/TOEgmBHLjo4ZgYEgfJUy0ONupZHMqF1SpPNK3fJ3oNPA0IIhRRdYuIgAwNDD8 lbm [file] AgICAgICAgICAgICAgICAgICAgICAgICAgICAgICAgICAgICAgICAgICAgICAgICAgICAgICAgICAgIC ZlJVSdZRUuJCXaMTViGM5TLWOtJHOyVZDdQLUqSCNs ICAgICAgICAgICAgICAgICAgICAgICAgICAgICAgICAgICAgICAgICAgICAgICAgICAgICAgICAgICAg YNMjKDRuTQAkSCZoPPQxOBDrXHUzIOUwYK3SHRDqADMiMGHtQTInVSQaNRKsKZQuSZZtKDXxNHEyKTFn ICAgICAgICAgICAgICAgICAgICAgICAgICAgICAgIC WwSELpYNTkISLfXJKiNAIgMPVmMXErQQElKNRgEDTlKQGyZG0VWIXcVEIjPQSqUPUwCPWpQPRzYOOvUN AgICAgICAgICAgICAgICAgICAgICAgICAgICAgICAgICAgICAgICAgICAgICAgICAgICAgICAgICAgIC XrOTXeWCJaTAUcQGZpGKKtSX5VZIWlDEEpCWRfXFXf ICAgICAgICAgICAgICAgICAgICAgICAgICAgICAgICAgICAgICAgICAgICAgICAgICAgICAgICAgICAg NJAzWCHmAQJlWIQeHSTwZMKaLTWqRIGzTUEmNE4VBIWeRICmGTRwVSDgOUZbMPTqEBToJMRaDSQyUJCn ICAgICAgICAgICAgICAgICAgICAgICAgICAgICAgIC CmVPLpZNOjVGWxXIQtWCIbDXLcVZFcWZPdJEIpTOPhRVFuYULiGY0RJCYiPVLgWTIlJKKyGJTdJIAzXU AgICAgICAgICAgICAgICAgICAgICAgICAgICAgICAgICAgICAgICAgICAgICAgICAgICAgICAgICAgIC PsXDWgEBIfUJKzFWHbUEVzXFOrNK0RRFNdYMCcLZQj ICAgICAgICAgICAgICAgICAgICAgICAgICAgICAgICAgICAgICAgICAgICAgICAgICAgICAgICAgICAg XPEyKQPhYBPtBEMqCINmYIGsSBPbNQBlSCVqGXQsPO4KZBWdKXEiOHGqUIBxUBYyRUAgDDHqUDJeJCVs ICAgICAgICAgICAgICAgICAgICAgICAgICAgICAgIC XaEHYaKRUgMHMzFBQqFFNyMDUeSYQmCMMwIMLuIYFmLBByPTIsGWMgNK6OEEVcPRVsOEYoKOOpQBOzGS AgICAgICAgICAgICAgICAgICAgICAgICAgICAgICAgICAgICAgICAgICAgICAgICAgICAgICAgICAgIC SpIKMtAXQhQVYzFLPnJQTnINGzDCGlMZ7APP65nHQa w2J7KTUxNH9owgo/Yn4WPIlhblQvjXZcRF1IUeHhBP6ldv1EQhVxLJ3dew1JFNwKCiPwA6A2yYGaZWAs ADDKZzSlY12oAYemKi93ZZocJYPxUqYtYUz3Aw5WQcGlN3fsPIMaKzB8BIGgEfVhHYbwZZ6Pr8AirODq DQo+Bu8BND9ld9UdDGoxVSTeDA1ypb6CXIpREqLoD7 SozcN8CYZ0PBVxMc5SUXNyXTYqmWKvKIJuUBKEHvYiA9XrhT97KMQTPn5+MWhzjiYiIpyMVbN5FUOkq0 RwPRs4OM8ZKXOaQDf2xUPcYMBrW9Oqi1WyUv14CZGpCnzjAIlzbGleIYN0boKlvAypRw5uHJNnFS1nLO 8sRKIuHLPiFqMqHFABQY0MYHWmLQFlaRSlBNUrEVXJ JH9TAMfwDJC0IADxubAlfQXaSJjuFW6DTYNaskQwIJZiWVYHDHc+Ok1JKI5gt9SvPZrcCzKzVN3deo5A XMeESxUfI6W5hOFhZ7B6MHntEg3JFSHqMADuBVCiHTYWWPykTU9DNK1blmA9ES2BgKDxVKIiDLMzfVYh LCg5Z95mhRPrPBroMO4CGNI+Fady+Sx7IWMMoNDWwQP HrCmPlRVTTJjYyZ0TkD5NEv0RhP8CpNS18rMtiigEqTUyhIY0VTF7jIRZsXHQUDR1LbPCbvC0oayMoZC DuMRQUFoJwW70ylGEzHXYeXZBhRDFgYw0WBMBrC7IsrnIhqTfvlsAyBZDcDZSTKT9EYTmriuKkbZUadF hfDQ76oIqxAC6HEh3BQcQxZU6tvg6QuLShCm0TMCKe Zz4QMXMfANNaEFXpAJZ7KPCuKdPqDSawVMZaSVAwXNC6HLQmAILhQS7HOiLbVAZhPNS2BexbOSZhFYHd cq6STMOsWJEpRiM4MTZwAOLtHVYqWCvtTZTpNOBxUDN6EWUqAVFlSS1QBaVuYKWkNRE5TapdOYJdTDBl af1CULIiERGyXNy8QbBxPFHuUJBmWHguRVLuCDOqGG KqLYDeQNEhKW4WGxPyWUFsYIRkGhrrRSTcHVAhkj5BNXFeTNIzZpOlHQCeQJLbCZQyLRjvKJWlQST1Pk Q9ZWFgBLRjGP7LNtGfJOSdSKQ1ZjwdUCPsZATyek2HNABuMZQmXML2DZLzPSYeCVMyGLtuXJQxBJD2JD S3BDCaXWTrXP3JBeZsFYVsJZG7UShaKMZrXPYelg3A MAJeFFQjLmB1RYYkQRYxKPMyOLfxRGTkJNB6FwT1FAEeWTZaED1LHmCwMWvrJYEYCbe2SGrtQ2x4KIWy Dr1LQ8Ind7WzYHSkXTBLWWqoIW5ebjRqDEYvRh6KC9aAAahiFSJ3K3AjCXGcSHDxTRH1ELfwVokmACG4 SvrpVeE7Mn8pZEM7HhCsSTNlFYRhKVVcXKT5UMNhKp KhXrzpADO6LuwpGwFzCP6BVm1BPhD3ZDW3sUEaXy5MTgw5TW2KZBLSK3UUQs== ID Date Data Source [id number] 07/21/2020 12:12:44 PM EDT [facility] Service Cmnt XXX-Imp : NoneGram Stn XXX : 3+WBC'S Seen.No organisms seenSpecimen concentrated prior to staining.Microorganism XXX Cult : No growth 5 days Name Value Range Interpretation Code Description Data Laura rce(s) Supporting Document(s) ID Date Data Source [id number] 07/16/2020 12:51:51 PM EDT [facility] Name Value Range Interpretation Code Description Data Laura rce(s) Supporting Document(s) Albumin [Mass/volume] in Body fluid 0.8 g/dL [facility] (NOTE)The performance characteristics of this test for this specimen typewere determined by the Department of Pathology at [facility] and approved by the [facility] Department of Health. It has notbeen cleared by the FDA. ID Date Data Source [id number] 07/16/2020 01:40:59 PM EDT [facility] Name Value Range Interpretation Code Description Data Laura rce(s) Supporting Document(s) Color of Body fluid [facility] Appearance of Body fluid [facility] Erythrocytes [#/volume] in Body fluid by Manual count 325 /uL [address] [facility] Cell count panel - Body fluid 70 /uL <200 [facility] Microscopic observation [Identifier] in Body fluid by Other stain [facility] Cell count and Differential panel - Body fluid [facility] Neutrophils/100 leukocytes in Body fluid by Manual count 1 % < 25 [facility] Monocytes+Macrophages/100 leukocytes in Body fluid by Manual count 73 % [facility] Lymphocytes/100 leukocytes in Body fluid by Manual count 13 % [facility] Other cells [#] in Body fluid by Manual count 13 % [facility] ID Date Data Source [id number] 07/16/2020 08:46:09 AM EDT [facility] Name Value Range Interpretation Code Description Data Laura rce(s) Supporting Document(s) [facility] CPHGIl2sRqLJUgAhj3GaXhQfPRScPH4jjqx7Q4F4eUUnC0ZjzNViu5nyQ7OmT6FgNJIgBJKWKZ0TbZGn jb2 [file] Luís/scbAA0/uYhw3DWt2kLhyOyhf+DJNtNtm2EW+h7kil9GziGPaUFAxXYrALxgDwrLHZUHBZ1lDFMA [file] /70u74G5/524///8szZ+3lv35a51i/n+y68/ qp925wwyu/z42w+/+kqyZoDf98ig5FmxC2O9l97mW0/+zXdv3/7yn7//5Vdv//Ag6821++exyh879+U3 I23p0serpmmjz/e/+ixe724/fv1+kc9/08kW6518/s1Xv/7Vx//56us5T44/cX/vd7iv3sV+XeTD+/++ n+75x//kp1JN//qbr7/79cdt+rfv3/7pw28/vn34xd fffPvVh1+9t/yn/7iLeL3+8Z9++aIkbSZX5945Tzmo0uD/+hbSD5jB+i/j+9/4P2o3SAC1xz+fmvyOfP 3NP72a/d37D/6TM70i/k/P9NfN/z+tGYlchS9d9j//6d9+/5c//vivb//9j7628ne/+MMPf/nLjz/84e /evvjhT7//8Q9v//PdMR8fj1/+/Ke3/nP1n+82xmc+ Iqou6rOcz+xPz7kL0p/9j3/8+b/xuxolssGf7Z/+MiiCiTa68ni/DXB/sz3g+ob26hWhVxE4y1vbwyCx R6N93OpJY0ahzS8/T8ou2nmf9pr1jb87++O//fhunJelPnt7+/Bu6ffu+e2Ht//0aIsnvYVl410dc4/8 3pIbN39/Xjd65bo/7p3zd/e74ey76v1adlElr3pDu4 Hf/david//j7t7/88B8/qwX444n7X4legu9or1dEL3xm15d/0slmA403/Z/+48e//D9/dfN5+mPST0+f9/ 15ddua3P/2j99+9/av//P93n//5z/94VV0MA9TPi+neLB//P7n//j974C/e5kWsV8/xtlvLpXczY9qvt l+7joMgOeaBiQW2ImHqxvMZ/r0e9732chwS/y/P/77 X4+d67w95uQyUp10U7+qP++Dr6+3//WXf/nbn/p4NVhubbzAH836hJX+/sP//N0P//77H/70k/8/lh76 +z/99P+f4dLaH/77X//vY8Jv//xwW753/mKR+MlPTnt/8rgvcQkTDxqRp2UTaHLv//i7/+tPv//d+x1+ 3zho4R7+/LtM64i2c83i6yC79s//x3u3+9fP/vp6O5 PMCn3oj7/e/d13/MWmwvj//2yjl2wuFcw6P//fW284s3g//0mn16x7DynsWc+4bGD5zN6+vgsSbx+/+P 6nz0g035e8kBR56+3MV527K/xE81sXD//mN1+//3ztiwzgVChqLz1nv038YyhkgiMugWQyHN3PRF2rc1 CjJfU4WPDxo5WfZWuyQAv5xHFtDIwcanFfy0Ielvqy N6Tis8KaMoBpGYWqSxOdVke4PTYlNnR9tSQpPfFmSFVcB8WtAXSbOjH3CkLuOVUJIQ5DEBEetbZyBsOw IFI+TzGyXI3jtbtbNJGwg7MtFOsmLEpiVLNdW9B7nAzkCPDpZ0YtbN44ABBsS2TuyrG6RYV8NAQbZjJg TGFzdCAxOSAwIFI+NbOvVG4zjnqyYDHvc3GiZWozWG J0nV0iLWnMDOMTNCwCSSflYqL2h82qmoWJYXKqDVDlKC3ExnCqrQvwnyFaoVXnAEL3WtPxNVD7SoJzWD Y6QLFYBEAwPVWkKACbHLHfN6BvnTdaHRpEGVYQIQvBEBdoEhYhl1M5EBJeteBPDYETJgeCJERNG4QGLB S2PGI3UJMsQM9SxKCzZQS7LStWEFGQYJtPQVcrWdXf c1N1VMVkM3RvRWTijwAjDWJNEIehPapsDM9fqYdkxgqlP0AtzBXcJQWOYFLlCYAwFHNnPYSqR0Cca0I4 H5ArDVbVLAOCPKtBYEgpIwB3j55zowDNZWChDAPcFD8+WU2ch0HnMj4YGFRzFL1mqhl7LD2EbNHgBC7U TIhnnjZgC5zdiqMnAzJeIWAPRM3eI4McmF84MAQ+Pm SuZV9xple0nhAjShUeCMUxPEWwKWDjRBopWZWoJPWkKZPiCRC4SLY9QQWaXtTfWUKqNhB6PfNvCDHbZX XjadTMWTBwCGL9TkH2KGUnUUYdMXGxOUonMNZkCECeOPE7DKUjVSRlUZ4lPtAyDRYsBYUiKYHhCyF9Jp UgZiAKMDAwMDAwMDAxNiAwMDAwMCBuIAowMDAwMDAw BVj1IKHtEXQiOA6hMnDiDCAySVDfKSRwEWMpTZDwxcBQWUEtGQYhHIA5XJHsKXMdCURbQHexYKAzEODa HOL4RLVpZEBaOU1tDmAaOIXiHFP0OsPjKMYjDAQxywNPITDsPBRmNHV5DIAmFDChZBPlOFufPNSkDDTo EuS3GHOaONYbJX7aNoOjEAQuBFT5PZJvEGUlBYVtgr TDWWVjSEWkRNg8RkIvVCYgIQBzESuiTSUaPMRpTDhqCNHpZQNuJJ4eXaYgOQShATKoLJFnMKKeUYZxgc VAZNQtXBHiZHF7WwVkBNAgSDMgQYcjKHApEKQgMET2HZOoMZTfYK5fKhPoSIYcVjBlBAadFJLfHTUfyl AKMDAwMDAwMTYwOSAwMDAwMCBuIAowMDAwMDAxNzM0 YMAcXSZuPV6nEgZtIQMgPHI2VSEiQHWlGJPgasWSGCXpQWXdSCHtPNX1ORWxKBNpJUx3kbMipDJzZcu3 Kr7SiVwqONX7Uq1LqjIyMDZbTDAAOo8Gv110XTTvTFNVJnz+IvsntPTtuMkfYPVEQvU1IswAFOVOK4Y= ID Date Data Source [id number] 07/16/2020 08:45:48 AM EDT [facility] Name Value Range Interpretation Code Description Data Laura rce(s) Supporting Document(s) [facility] QRAYSr1hDdSKEkJas9CdWhCoXLIqLJ1kwxm2P0O0dZCdV0GbfFSva5daO0VeB0JeXPSwMTBKXG9JwHPp jb2 [file] jaqcecc8MFu0wkrxxjr1MSn4tposunx5IRg3tbibpys1UEm6pdsxv2t+NJq2mybjd8c+XSz8tejvd2l+ CDa9venvg7p+ZQf3ocbwvmooXCP9mgneizlfELZ1cg 8WlSbuWY0YmNrELNHrEJ9SsJjJWAAnBW6vtCrHHCAvOI5zbCaoPTNUlrdCfItVt6PTp0kxm7NKpqdF1B YYkwX6ETGqeEUNUDFXNU5QFBhSA+jfcK3k8mxgzPn4fuyvrxysss1blg2zv8jeh9Wo7iGw4U44kIg/a4 LrZzK1IXt18q74Wiy3s3PMlrqJ8WqCwrL5LzCxlUNV vYkLOF6cCtvBE8WAubfc36lT8TKoHnm5c3+JztA78Ik5/s/FW3ps4x34zP0HWmWh+photocopy operator+ePldnSY27qE [file] +tlkDeqCs26u6817s06yqKMz0trIk8490vJuB/i4M057bgCe+n50aa9+ldkOzqm++Jf36052+6t/+circulation crew leader L/+Yu56t93upK3790CvohBtVbjz94q4loczy7pYke/ r62y8//Tf5kz2LK3k91L4/9fGrt8++/vKbD99+/Pztn7/35Nu9y7/949vX//PXa9joJl0dt6PpJC24/r tvxpjDe38t//QQw8uSinAxd6/8+Q3w3684m5k/+erz/+KXL/fg9cvP/vynf//9X/74w7+9/Y///fbb3/ /hD9//5S8/fP+Hv3v7/Ps//q0WM2g635+T+Ne/ffvz f54q1ae/aa9uqjZi/f/tw5d/ZdKzqejcUfvjH3/+BmhcZsaLdwu5r63SQd3wFG1+r1/9H4Dnq+qW295i f8/yztgxipv15ygepJg8pHQYCG/hKxbx5777uo2SYQo97aWKuw/8+w/xmcfG8eydxf4+/fG/f/jq828/ vY5x846//kTEu14W6sRyZ5eCq/k9pXz7jt6cvb0d8J F/+M3UoBAtAIbdSmi/6rm//eFP//n3b3/5/j9/+FHt76+/y4aW8wxwh8nAL2eItNuh9Yp1zivub//Tf/ 7wl//nry4+q79N+oUb20fz73h+WvuN/cC053789/96v/bf//lPP63+iNL8WwFQpKH161nh/9On3wF/f5 ky7AT78+8e+35zf7saIy8+hzS8mitoo0xISijubm+9 bUw21qob/uzT2/f/7w//5bjWdcHtms5v1j0+40MX5un0I2/22//+y7/+7U+Ovm/Dl9//4Ue3d/8I/ez7 //W77//j99//6Se/gt791Ia/+boss9zela2oO/42l94Kg/3zn//4i/kQAkRsr6za/fWff/eLxSfurJBJ LoEX/umH3/1ff/o0887w9UgkW92+4cOvf/31Vz85+j B35NH/8Z/eyx9gmtGG2xe+sHud655++fGrT9/yjPDh0r2/yOuLRt+8xtJvvv+kF1yH02///H3KCaxd0u nN318Js0lvcB20RbWbJn7+3J4VrM8Djpp48T75857/fvv+1D9/Zf198K7Obz77RRB6ahFA6eo4/wA5qE uaDeYfVXP2gvQjrXubolLuMkdNJSuzHJZkCvs8WI5Y lYDgPVFeO3I6BFVmuc0eNBKyVJUraDNnSxUkUUQULT9BlEUvGU4VIOc2KXVwKHSpKfIzCIUbbaH0NCFv HWYnJCPlQ5KywrUtoBFgEQDdJa4+SU3fd1WmIkQjOYCuVva5FX7QpYDzYN0EzEGjzD5fqjLqO639vmGq GTVrPzpaj9BmKJnoYKFOBC8MLJD2OQY1LZJfRb1+ZW 6uq8NtCeJzZDKzBce1XR0EyUSum9OcMT7VC8BeITHzCCJECDV7v1NwSARogjmftnmkU3FcGAI9mC6uUU P2KSHoWXjxHPApHDAqCGX6OLXiNPpzYFUfGGHgNZGpDNWpECh2lJTpAG6TP5AiSFEjGJVNBAMsclXsHw 1oBBHMH5wMGXHdJVNJQRYdTqU3PXv1MapuQ6B5Hnxz H6NsOZ7CW9OgWKRhUNCXXUYfuoVfUR5RdkUwvU8iPQyQUBRISLzINJejVzA5c17quxPNBXRnFVPpWWti LEBlDFIkNGWaFJCnHLCgJOTtSJPrBR3MJ0PpKFTkBMRUCNZ2o0HdBYFrvskpgvjaEz8wvgQqYck+Pgox TXTfu7BcLLgsU7K9tVNfF0XsO1QnSC2IqXXhPIkkIA BkAQZdWDJiG516kdOtNH8+DF3ri3EpLvevFMNSJIIiIIUrMYSkOGR8LwLgVYFlGNSoVHVxRcG9UnCiFt PTBSIlIBQ5WuHnXvCwZVGzLFQcNLcuKYKzMLKyWgNtTLDrPVXwAF4qClLkVAAeLpSyJkFxNQDdCHExow GOAHBjXZVkRIHcMWY1MMIsTAOoBCyvTGRhHNLmPUX4 KEWeTSAbNM3xIoCgRGZsCPAwXuieYQTsEOXqixGBOAAqRGLcPCL3WnHpSZCvJKMvMGnxPFDlODHpUuy8 VPQpGEGiHC4hMfEoEDQoGWV2DOooRAOyFHFhmbDRMZCbMUWlOTZwZbRmPTZnNUUpCOnoZDEiGRTzDzEg YAQeBBDcRI3lGnEvJIHzHFV4NFLlRUYhJFNsuzYFYM CuXBAqHMm3SLVxMPVbODEdEGyoOGVoCOBmIVO4GTNaNVQiHW3eSuMpMKMrKVQvIWOxXCSqYRYnoaDQHS DqMEDzJYL6OMGvRXFjTWXqXAlrNNVmZELmVif3QEKmWOVpYN7zOfRxSHYfPZJ1QEBrVQDlAIZspjEDXG DmQZR6JnRfGtOlTNGvPWKpTZtoLVCfCVXyIwM7BPFs MSAqUK8mFfUpRZVbMOA0KhLyLPWuXBUyjiKOWJSqXEPdYQQ4UsZzEEIjPNLxGMdxMFPeULVxKLPiNRW7 EAJ7TLUpDsMqKHebQMILKFyZU9GwhnFwHuJVP7iyLc3wHaUbFFCES5Kgd5YrCMJdHCUKJo4+LhH3MGF0 fMWkAdy2OqW8JrjpTLKHYv== ID Date Data Source [id number] 07/16/2020 08:45:34 AM EDT [facility] Name Value Range Interpretation Code Description Data Laura rce(s) Supporting Document(s) [facility] AWNLGp8qZhKTVhBaw3FxWwUfCTPdAL3fjmb2O5S9cMQuP4IqzSRem7adB4IlV9KzHHKsUHMFVJ9SgSSx jb2 [file] GPAO1T7Wsz/sVXRQMIB4Xio5Pkp2xWU4PA3+nknO9k/3u7xq33/+q6fQ/hmif//+7//pn3+J//P//[facility] [file] ID Date Data Source [id number] 07/16/2020 05:18:27 AM EDT [facility] Name Value Range Interpretation Code Description Data Laura rce(s) Supporting Document(s) Leukocytes [#/volume] in Blood by Automated count 4.8 10*3/uL 4-10 [facility] Erythrocytes [#/volume] in Blood by Automated count 3.11 10*6/uL 4.6- 6.[address] [facility] Hemoglobin [Mass/volume] in Blood 9.8 g/dL 13.5-[address] [facility] Hematocrit [Volume Fraction] of Blood by Automated count 29.4 % 4 1-[address] [facility] Erythrocyte mean corpuscular volume [Entitic volume] by Auto mated count 94.7 fL 80-96 [facility] Erythrocyte mean corpuscular hemoglobin [Entitic mass] by Automated count 31.5 pg 27-33 [facility] Erythrocyte mean corpuscular hemoglobin concentration [Mass/volume] by Automated count 33.2 g/dL 32.0-36.0 [facility] Erythrocyte distribution width [Ratio] by Automated count 15.4 % 11.5-14.[address] [facility] Platelets [#/volume] in Blood by Automated count 51 10*3/uL 150-[address] [facility] Differential cell count method - Blood [facility] Neutrophils/100 leukocytes in Blood by Automated count 69 % [facility] Lymphocytes/100 leukocytes in Blood by Automated count 11 % [facility] Monocytes/100 leukocytes in Blood by Automated count 15 % [facility] Eosinophils/100 leukocytes in Blood by Automated count 4 % [facility] Basophils/100 leukocytes in Blood by Automated count 1 % [facility] Neutrophils [#/volume] in Blood by Automated count 3.35 10*3/uL 1.8-[address] [facility] Lymphocytes [#/volume] in Blood by Automated count 0.51 10*3/uL 1.2-[address] [facility] Monocytes [#/volume] in Blood by Automated count 0.71 10*3/uL 0-0.8 [facility] Eosinophils [#/volume] in Blood by Automated count 0.20 10*3/uL 0-0.5 [facility] Basophils [#/volume] in Blood by Automated count 0.04 10*3/uL 0-0.2 [facility] Nucleated erythrocytes/100 leukocytes [Ratio] in Blood by Automated count 0 /100{WBCs} 0-0 [facility] ID Date Data Source [id number] 07/16/2020 05:38:51 AM EDT [facility] Name Value Range Interpretation Code Description Data Laura rce(s) Supporting Document(s) Albumin [Mass/volume] in Serum or Plasma by Bromocresol green (BCG) dye binding method 2.7 g/dL 3.5-5.2 [facility] Bilirubin.total [Mass/volume] in Serum or Plasma 1.7 mg/dL <1.[address] [facility] Calcium [Mass/volume] in Serum or Plasma 8.8 mg/dL 8.6-10.0 [facility] Chloride [Moles/volume] in Serum or Plasma 103 mmol/L 98-107 [facility] Creatinine [Mass/volume] in Serum or Plasma 1.23 mg/dL 0.70-1.[address] [facility] Glucose [Mass/volume] in Serum or Plasma 148 mg/dL 70-[address] [facility] Alkaline phosphatase [Enzymatic activity/volume] in Serum or Plasma 130 U/L 40-[address] [facility] Potassium [Moles/volume] in Serum or Plasma 3.9 mmol/L 3.4-5.1 [facility] Protein [Mass/volume] in Serum or Plasma 6.4 g/dL 6.4-8.3 [facility] Sodium [Moles/volume] in Serum or Plasma 133 mmol/L 136-[address] [facility] Aspartate aminotransferase [Enzymatic activity/volume] in Serum or Plasma 28 U/L <40 [facility] Urea nitrogen [Mass/volume] in Serum or Plasma 27 mg/dL 6-[address] [facility] Osmolality of Serum or Plasma by calculation 283 mosm/kg 275-300 [facility] Creatinine/Urea nitrogen [Mass Ratio] in Serum or Plasma 22 [facility] Bicarbonate [Moles/volume] in Serum 22 mmol/L 22-29 [facility] Alanine aminotransferase [Enzymatic activity/volume] in Seru m or Plasma 15 U/L <41 [facility] Anion gap 3 in Serum or Plasma 7 mmol/L 8-[address] [facility] Glomerular filtration rate/1.73 sq M pre dicted among non-blacks [Volume Rate/Area] in Serum or Plasma by Creatinine-based formula (MDRD) 63 mL/min/1.73m2 >60 [facility] Glomerular filtration rate/1.73 sq M pre dicted among blacks [Volume Rate/Area] in Serum or Plasma by Creatinine-based formula (MDRD) 73 mL/min/1.73m2 >60 [facility] ID Date Data Source [id number] 07/16/2020 05:38:51 AM EDT [facility] Name Value Range Interpretation Code Description Data Laura rce(s) Supporting Document(s) Magnesium [Mass/volume] in Serum or Plasma 1.8 mg/dL 1.6-2.6 [facility] ID Date Data Source [id number] 07/16/2020 05:38:51 AM EDT [facility] Name Value Range Interpretation Code Description Data Laura rce(s) Supporting Document(s) Phosphate [Mass/volume] in Serum or Plasma 3.7 mg/dL 2.5-4.5 [facility] ID Date Data Source [id number] 07/15/2020 07:05:00 PM EDT [facility] Patient: ADDISON ZUÑIGA [facility] - Phys[facility]/Mid Levels . [facility].VisitID: [id number] [place] [address] [phone], MRegistration Date/Time: 07/14/2020 15:57 Weight:90.7 kg (S). [...] Data Source [id number] 07/15/2020 08:37:45 AM EDT [facility] Name Value Range Interpretation Code Description Data Laura rce(s) Supporting Document(s) Ammonia [Moles/volume] in Plasma 77 umol/L 16-[address] [facility] ID Date Data Source [id number] 07/15/2020 06:42:39 AM EDT [facility] Name Value Range Interpretation Code Description Data Laura rce(s) Supporting Document(s) Progress Note [facility] [id number]y lbm [file] [id number] ID Date Data Source [id number] 07/15/2020 04:29:10 AM EDT [facility] Name Value Range Interpretation Code Description Data Laura rce(s) Supporting Document(s) Color of Urine [facility] Clarity of Urine [facility] Specific gravity of Urine by Refractometry automated 1.016 1.003 -1.030 [facility] pH of Urine by Automated test strip 5.0 5.0-8.0 [facility] Protein [Mass/volume] in Urine by Automated test strip Neg [facility] Glucose [Mass/volume] in Urine by Automated test strip Neg [facility] Ketones [Mass/volume] in Urine by Automated test strip Neg [facility] Bilirubin.total [Presence] in Urine by Automated test strip Negative [facility] Hemoglobin [Presence] in Urine by Automated test strip Neg [facility] Leukocyte esterase [Presence] in Urine by Automated test strip Negative [facility] Nitrite [Presence] in Urine by Automated test strip Negati ve [facility] Leukocytes [#/area] in Urine sediment by Automated count 1 /HPF 0 -5 [facility] Erythrocytes [#/area] in Urine sediment by Automated count 0-3 [facility] Epithelial cells.squamous [#/area] in Urine sediment by Automate d count None [facility] Hyaline casts [#/area] in Urine sediment by Microscopy low p ower field 9 /LPF None [facility] ID Date Data Source [id number] 07/15/2020 03:50:00 AM EDT [facility] Name Value Range Interpretation Code Description Data Laura rce(s) Supporting Document(s) SARS-CoV-2 RNA 2019 nCoV Real-Time RT-PCR: NOT DETECTED [facility] This lab was ordered by [facility] and reported by [facility]. ID Date Data Source [id number] 07/15/2020 04:22:05 AM EDT [facility] Name Value Range Interpretation Code Description Data Laura rce(s) Supporting Document(s) Leukocytes [#/volume] in Blood by Automated count 5.0 10*3/uL 4-10 [facility] Erythrocytes [#/volume] in Blood by Automated count 3.06 10*6/uL 4.6- 6.[address] [facility] Hemoglobin [Mass/volume] in Blood 9.8 g/dL 13.5-[address] [facility] Hematocrit [Volume Fraction] of Blood by Automated count 28.7 % 4 1-[address] [facility] Erythrocyte mean corpuscular volume [Entitic volume] by Auto mated count 93.8 fL 80-96 [facility] Erythrocyte mean corpuscular hemoglobin [Entitic mass] by Automated count 32.0 pg 27-[address] [facility] Erythrocyte mean corpuscular hemoglobin concentration [Mass/volume] by Automated count 34.2 g/dL 32.0-36.0 [facility] distribution width [Ratio] by Automated count 15.6 % 11.5-14.[address] [facility] Platelets [#/volume] in Blood by Automated count 55 10*3/uL 150-[address] [facility] Differential cell count method - Blood [facility] Neutrophils/100 leukocytes in Blood by Automated count 66 % [facility] Lymphocytes/100 leukocytes in Blood by Automated count 13 % [facility] Monocytes/100 leukocytes in Blood by Automated count 15 % [facility] Eosinophils/100 leukocytes in Blood by Automated count 5 % [facility] Basophils/100 leukocytes in Blood by Automated count 1 % [facility] Neutrophils [#/volume] in Blood by Automated count 3.31 10*3/uL 1.8-[address] [facility] Lymphocytes [#/volume] in Blood by Automated count 0.66 10*3/uL 1.2-[address] [facility] Monocytes [#/volume] in Blood by Automated count 0.76 10*3/uL 0-0.8 [facility] Eosinophils [#/volume] in Blood by Automated count 0.25 10*3/uL 0-0.5 [facility] Basophils [#/volume] in Blood by Automated count 0.06 10*3/uL 0-0.2 [facility] Nucleated erythrocytes/100 leukocytes [Ratio] in Blood by Automated count 0 /100{WBCs} 0-0 [facility] ID Date Data Source [id number]/15/2020 04:36:05 AM [facility] Value Range Interpretation Code Description Data Laura rce(s) Supporting Document(s) Prothrombin time (PT) 17.1 s 12.5-14.[address] [facility] INR in Platelet poor plasma by Coagulation assay 1.37 [facility] Routine intensity oral anticoagulation I NR is typically 2.0-3.0. Target INR must be clinically individualized. ID Date Data Source [id number] 07/15/2020 04:45:24 AM [facility] Value Range Interpretation Code Description Data Laura rce(s) Supporting Document(s) Albumin [Mass/volume] in Serum or Plasma by Bromocresol green (BCG) dye binding method 3.0 g/dL 3.5-5.2 [facility] Bilirubin.total [Mass/volume] in Serum or Plasma 1.5 mg/dL <1.[address] [facility] Bilirubin.direct [Mass/volume] in Serum or Plasma 0.8 mg/dL <0.[address] [facility] Alkaline phosphatase [Enzymatic activity/volume] in Serum or Plasma 146 U/L 40-[address] [facility] Aspartate aminotransferase [Enzymatic activity/volume] in Serum or Plasma 27 U/L <40 [facility] Alanine aminotransferase [Enzymatic activity/volume] in Seru m or Plasma 17 U/L <41 [facility] Protein [Mass/volume] in Serum or Plasma 6.6 g/dL 6.4-8.3 [facility] ID Date Data Source [id number] 07/15/2020 04:45:24 AM T [facility] Name Value Range Interpretation Code Description Data Laura rce(s) Supporting Document(s) Bicarbonate [Moles/volume] in Serum 23 mmol/L 22-29 [facility] Chloride [Moles/volume] in Serum or Plasma 102 mmol/L 98-107 [facility] Creatinine [Mass/volume] in Serum or Plasma 1.43 mg/dL 0.70-1.[address] [facility] Glucose [Mass/volume] in Serum or Plasma 143 mg/dL 70-[address] [facility] Potassium [Moles/volume] in Serum or Plasma 4.1 mmol/L 3.4-5.1 [facility] Sodium [Moles/volume] in Serum or Plasma 133 mmol/L 136-[address] [facility] Urea nitrogen [Mass/volume] in Serum or Plasma 29 mg/dL 6-[address] [facility] Anion gap 3 in Serum or Plasma 8 mmol/L 8-15 [facility] Osmolality of Serum or Plasma by calculation 284 mosm/kg 275-300 [facility] Creatinine/Urea nitrogen [Mass Ratio] in Serum or Plasma 20 [facility] Calcium [Mass/volume] in Serum or Plasma 8.7 mg/dL 8.6-10.0 [facility] Glomerular filtration rate/1.73 sq M pre dicted among non-blacks [Volume Rate/Area] in Serum or Plasma by Creatinine-based formula (MDRD) 52 mL/min/1.73m2 >[address] [facility] Glomerular filtration rate/1.73 sq M pre dicted among blacks [Volume Rate/Area] in Serum or Plasma by Creatinine-based formula (MDRD) 60 mL/min/1.73m2 >[address] [facility] ID Date Data Source [id number] 07/15/2020 06:25:42 AM EDT [facility] Name Value Range Interpretation Code Description Data Laura rce(s) Supporting Document(s) Magnesium [Mass/volume] in Serum or Plasma 1.9 mg/dL 1.6-2.6 [facility] ID Date Data Source [id number] 07/15/2020 06:25:[address] [facility] Name Value Range Interpretation Code Description Data Laura rce(s) Supporting Document(s) Phosphate [Mass/volume] in Serum or Plasma 4.0 mg/dL 2.5-4.5 [facility] ID Date Data Source [id number] 07/15/2020 07:49:[address] [facility] Name Value Range Interpretation Code Description Data Laura rce(s) Supporting Document(s) aPTT in Platelet poor plasma by Coagulation assay 30.1 s 24.0-33. 0 [facility] ID Date Data Source [id number] 07/15/2020 05:12:05 AM [facility] Value Range Interpretation Code Description Data Laura rce(s) Supporting Document(s) Specimen source [Identifier] of Unspecified specimen [facility] SARS-CoV-2 RNA 2019 nCoV Real-Time RT-PCR: NOT DETECTED [facility] Assay Performed [facility] Patients first test for [facility] Patient employed in healthcare setting [facility] Patient has symptoms related to [facility] When did you start to experience these symptoms [Date and time] [Phen X] [facility] Patient was hospitalized because of this condition [facility] patient was admitted to ICU for [facility] Patient resides in a congregate care setting [facility] status [facility] ID Date Data Source [id number] 07/15/2020 05:11:[address] [facility] Service Cmnt XXX-Imp : NoneRespiratory P CR Panel : PCR ResultsMicroorganism XXX Cult : See Labs Tab for 2019 nCoV RT-PCR resultsHAdV DNA QI BRYCE+non-probe : Not DetectedHCoV [id number] Nph QI BRYCE+non-probe : Not DetectedHCoV [id number] Nph QI BRYCE+non-probe : Not [id number] RNA Nph QI BRYCE+non-probe : Not [id number] RNA Upper resp QI BRYCE+probe : Not [...] DNA Nph Q BRYCE+non-probe : Not DetectedB [id number] DNA Nph BRYCE+non-probe : Not Detected Name Value Range Interpretation Code Description Data Laura rce(s) Supporting Document(s) ID Date Data Source [id number] 07/17/2020 04:31:00 PM EDT [facility] CYTOPATHOLOGY REPORTName: ADDISON ZUÑIGAMRN: [id number] Number: [id number] Date: 07/15/2020 00:00Received Date: 07/16/2020 12:19Physician(s): BAUDILIO LOPEZ MD CREAMER, TIMOTHY M, MD Copy To:ROME HERNANDEZ MDGOODMAN, ALEXANDRA, MDSpecimen(s) ReceivedA: ASCITIC FLUIDClinical History:Ascites. See [id number] FLUID: NO EVIDENCE OF MALIGNANCYComment/ld/calReviewing Cytotech: ANANYA Burroughs (ASCP)Electronically Signed By Lakshmi Galloway M.D. 07/17/2020 16:31:36Microscopic DescriptionThe specimen is composed of benign reactive mesothelial cells andmacrophages./ldGross Fuhxppmcwec008 ml clear yellow fluid received. Specimen processed bycytocentrifugation: 1 cytospin slide prepared for Pap stain and 1 cytospinslide prepared for Diff Quik stain. This report may include one or more immunohistochemical stain results thatuse analyte specific reagents. All positive and negative controls havebeen reviewed by the attending pathologist and are satisfactory. The testswere developed and their performance characteristics determined by [facility] Pathololgy department. They have not been cleared or approved by [place] Food and Drug Administration. The FDA has determined that suchclearance or approval is not necessary. Name Value Range Interpretation Code Description Data Laura rce(s) Supporting Document(s) ID Date Data Source [id number] 07/14/2020 08:00:00 PM EDT [facility] Name Value Range Interpretation Code Description Data Laura rce(s) Supporting Document(s) [facility] This lab was ordered by [facility] and reported by [facility]. ID Date Data Source [id number] 07/14/2020 08:18:00 PM EDT [facility] [id number] Name Value Range Interpretation Code Description Data Laura rce(s) Supporting Document(s) COVID-19 NEGATIVE NEGATIVE [facility] Negative results should be treated as pr [...] are for the indentification of SARS-CoV-2 RNA. EdiUKQL-PfH-8 RNA is generally detectable in respiratorysamples during the actue phase of infection. ID Date Data Source [id number] 07/14/2020 06:42:[address] [facility] l DATE OF EXAMINATION: 07/14/2020 17:56 EDT [...] rce(s) Supporting Document(s) ID Date Data Source [id number] 07/14/2020 06:19:00 PM EDT [facility] TSYS[facility] [id number] Name Value Range Interpretation Code Description Data Laura rce(s) Supporting Document(s) URINE RBC 1-3 /hpf 0-3 [facility] URINE WBC 1-3 /hpf 0-5 [facility] URINE EPITHELIAL CELLS 1+ /hpf 0 [facility] URINE BACTERIA 1+ NONE SEEN H [facility] URINE HYALINE CAST 3-6 /LPF 0 [facility] ID Date Data Source [id number] 07/14/2020 06:12:00 PM EDT [facility] TSYSORDER [id number] Name Value Range Interpretation Code Description Data Laura rce(s) Supporting Document(s) URINE COLOR. [facility] URINE APPEARANCE CLEAR [facility] GLUCOSE (UA) NEGATIVE mg/dL NEGATIVE [facility] URINE BILIRUBIN NEGATIVE NEGATIVE [facility] URINE KETONE NEGATIVE mg/dL NEGATIVE [facility] SPECIFIC GRAVITY,URINE 1.020 1.005-1.030 [facility] URINE BLOOD TRACE NEGATIVE H [facility] PH,URINE 5.5 5.0-9.0 [facility] URINE PROTEIN NEGATIVE mg/dL NEGATIVE [facility] URINE UROBILINOGEN 0.2 mg/dL 0-1 [facility] URINE NITRATE NEGATIVE NEGATIVE [facility] URINE LEUKOCYTE ESTERASE NEGATIVE NEGATIVE [facility] ID Date Data Source [id number] 07/14/2020 06:11:[address] [facility] l TSYSORDER [id number] Name Value Range Interpretation Code Description Data Laura rce(s) Supporting Document(s) MAGNESIUM 1.9 mg/dL 1.8-2.4 [facility] ID Date Data Source [id number] 07/14/2020 06:11:[address] [facility] l TSYSORDER [id number] Name Value Range Interpretation Code Description Data Laura rce(s) Supporting Document(s) LIPASE 151 U/L [id number] [facility] ID Date Data Source [id number] 07/14/2020 06:11:00 PM [facility] TSYSORDER [id number] Name Value Range Interpretation Code Description Data Laura rce(s) Supporting Document(s) GLUCOSE 144 mg/dL 74-106 H [facility] BLOOD UREA NITROGEN 29 mg/dL 7-18 H [facility] CREATININE 1.67 mg/dL 0.7-1.3 H [facility] SODIUM 136 mmol/L 136-145 [facility] POTASSIUM 4.4 mmol/L 3.5-5.1 [facility] CHLORIDE 102 mmol/L 98-107 [facility] CO2 25 mmol/L 21-32 [facility] CALCIUM 8.7 mg/dL 8.5-10.1 [facility] ANION GAP 9.0 mmol/L 5-12 [facility] GLOMERULAR FILTRATION RATE 42 mL/min [facility] GFR IS CALCULATED IN mL/min/1.73m2 HEIDE L FUNCTION: >90MILDLY DECREASED: 60-89MILDY TO MODERATELY DECREASED: 45-59 MODERATELY TO SEVERELY DECREASED: 30-44SEVERELY DECREASED: 15-29RENAL FAILURE: <15 AST 31 U/L 15-37 [facility] ALT 30 U/L 12-78 [facility] ALKALINE PHOSPHATASE 185 U/L 46-116 H [facility] pital TOTAL BILIRUBIN 1.3 mg/dL 0.2-1.0 H [facility] TOTAL PROTEIN 7.1 g/dl 6.4-8.2 [facility] ALBUMIN 2.8 gm/dL 3.4-5.0 L [facility] ID Date Data Source [id number] 07/14/2020 06:09:00 PM EDT [facility] TSYSORDER [id number] Name Value Range Interpretation Code Description Data Laura rce(s) Supporting Document(s) PARTIAL THROMBOPLASTIN TIME 24.6 SECONDS 21.2-27.3 [facility] ID Date Data Source [id number] 07/14/2020 06:09:00 PM EDT [facility] TSYSORDER [id number] Name Value Range Interpretation Code Description Data Laura rce(s) Supporting Document(s) PROTHROMBIN TIME (PATIENT) 11.7 SECONDS 9.1-11.6 H [facility] INR 1.13 0.87-1.06 H [facility] ID Date Data Source [id number] 07/14/2020 05:57:00 PM [facility] TSYSORDER [id number] Name Value Range Interpretation Code Description Data Laura rce(s) Supporting Document(s) WHITE BLOOD COUNT 6.7 K/mm3 4.0-10.0 [facility] al RED BLOOD COUNT 2.94 M/mm3 4.50-6.00 L [facility] HEMOGLOBIN 9.5 gm/dL 14.0-18.0 [facility] HEMATOCRIT 27.1 % 42.0-54.0 [facility] MEAN CELL VOLUME 92.2 fl 80-96 [facility] MEAN CORPUSCULAR HEMOGLOBIN 32.3 pg 27.0-31.0 H [facility] MEAN CORPUSCULAR HGB CONC 35.1 g/dl 32.0-36.0 [facility] RED CELL DISTRIBUTION WIDTH 14.7 % 10.0-14.5 H [facility] PLATELET COUNT 61 K/mm3 172-450 L [facility] MEAN PLATELET VOLUME 9.8 fl 9.0-13.0 [facility] pital GRAN % 71.8 % 50-80.0 [facility] IG% 0.4 % 0.0-0.2 H [facility] LYMPH % 10.1 % 25.0-50.0 L [facility] MONO % 13.3 % 2.0-10.0 H [facility] EOS % 3.7 % 0-5.0 [facility] BASO % 0.7 % 0.0-2.0 [facility] GRAN # 4.8 K/mm3 2.0-8.00 [facility] IG# 0.0 K/mm3 0.0-0.2 [facility] LYMPH # 0.7 K/mm3 1.0-5.0 L [facility] MONO # 0.9 K/mm3 0.10-1.20 [facility] EOS # 0.3 K/mm3 0.0-0.5 [facility] BASO # 0.1 K/mm3 0.0-0.2 [facility] ID Date Data Source [id number] 07/13/2020 03:17:05 PM EDT [facility] XR THORACIC SPINE AP AND LATERALFINAL [...] rce(s) Supporting Document(s) ID Date Data Source [id number] 07/13/2020 01:40:05 PM T [facility] Name Value Range Interpretation Code Description Data Laura rce(s) Supporting Document(s) Progress Note [facility] HJCEKr6pUoVXJuNz65/LGRiqQXJxg6PoXNpzPUg6FButEOSkP2VjOOX6zJ5dRCM3KQbKTdDtHlYjOOCr lbm [file] [id number]= ID Date Data Source [id number] 07/05/2020 12:00:00 AM EDT [facility] Name Value Range Interpretation Code Description Data Laura rce(s) Supporting Document(s) SARS coronavirus 2 RNA Negative [facility] This lab was ordered by [facility] and reported by [facility]. ID Date Data Source [id number] 07/06/2020 08:39:00 AM EDT [employer] [facility] FASTING: UNKNOWNReceived: 07/06/2020 at 04:37:00 QPT: [facility], [address], [address] [place], [address], Ryan Brown MD Name Value Range Interpretation Code Description Data Laura rce(s) Supporting Document(s) Sarcoptes scabiei identified in Skin by Light microscopy [employer] SCABIES EXAMINATION Micro Number: [id number] Test Status: Final Specimen Source: [id number] Specimen Quality: Adequate Result: No Sarcoptes scabei seen ID Date Data Source [id number] 07/04/2020 02:24:58 PM EDT [facility] IR IMAGE GUIDED NEEDLE DRAIN PROCEDUREFI NAL RESULTInterpreted by:Joanie Franco [facility]ITALROCEDURE: ULTRASOUND GUIDED PARACENTESISHISTORY/INDICATION: Ascites.TECHNIQUE:Operators:Attending physician: Joanie Franco [...] rce(s) Supporting Document(s) ID Date Data Source [id number] 06/29/2020 12:00:00 AM EDT [facility] Name Value Range Interpretation Code Description Data Laura rce(s) Supporting Document(s) SARS coronavirus 2 RNA Negative [facility] This lab was ordered by [facility] and reported by [facility]. ID Date Data Source [id number] 06/27/2020 12:00:00 AM EDT [facility] Name Value Range Interpretation Code Description Data Laura rce(s) Supporting Document(s) SARS coronavirus 2 RNA Negative [facility] This lab was ordered by [facility] and reported by [facility]. ID Date Data Source [id number] 06/20/2020 04:42:49 PM EDT [facility] Name Value Range Interpretation Code Description Data Laura rce(s) Supporting Document(s) Discharge Summary [facility] LPHEIz4kDpFYNyLf23/JBGjlAQCqk6NnNYmrZWb4KAaqNAVzE8LsWAY6nV1fMJQ5EWvCHdMxWeMoREF2 lbm [file] ICAgICAgICAgICAgICAgICAgICAgICAgICAgICAgICAgICAgICAgICAgICAgICAgICAgICAgICAgICAg ICAgICAgICAgICAgICAgICAgICAgICAgICAgICANCiAgICAgICAgICAgICAgICAgICAgICAgICAgICAg ICAgICAgICAgICAgICAgICAgICAgICAgICAgICAgIC AgICAgICAgICAgICAgICAgICAgICAgICAgICAgICAgICAgICAgICANCiAgICAgICAgICAgICAgICAgIC AgICAgICAgICAgICAgICAgICAgICAgICAgICAgICAgICAgICAgICAgICAgICAgICAgICAgICAgICAgIC AgICAgICAgICAgICAgICAgICAgICANCiAgICAgICAg ICAgICAgICAgICAgICAgICAgICAgICAgICAgICAgICAgICAgICAgICAgICAgICAgICAgICAgICAgICAg ICAgICAgICAgICAgICAgICAgICAgICAgICAgICAgICANCiAgICAgICAgICAgICAgICAgICAgICAgICAg ICAgICAgICAgICAgICAgICAgICAgICAgICAgICAgIC AgICAgICAgICAgICAgICAgICAgICAgICAgICAgICAgICAgICAgICAgICANCiAgICAgICAgICAgICAgIC AgICAgICAgICAgICAgICAgICAgICAgICAgICAgICAgICAgICAgICAgICAgICAgICAgICAgICAgICAgIC AgICAgICAgICAgICAgICAgICAgICAgICANCiAgICAg ICAgICAgICAgICAgICAgICAgICAgICAgICAgICAgICAgICAgICAgICAgICAgICAgICAgICAgICAgICAg ICAgICAgICAgICAgICAgICAgICAgICAgICAgICAgICAgICANCiAgICAgICAgICAgICAgICAgICAgICAg ICAgICAgICAgICAgICAgICAgICAgICAgICAgICAgIC AgICAgICAgICAgICAgICAgICAgICAgICAgICAgICAgICAgICAgICAgICAgICANCiAgICAgICAgICAgIC AgICAgICAgICAgICAgICAgICAgICAgICAgICAgICAgICAgICAgICAgICAgICAgICAgICAgICAgICAgIC AgICAgICAgICAgICAgICAgICAgICAgICAgICANCiAg ICAgICAgICAgICAgICAgICAgICAgICAgICAgICAgICAgICAgICAgICAgICAgICAgICAgICAgICAgICAg ICAgICAgICAgICAgICAgICAgICAgICAgICAgICAgICAgICAgICANCjw/lECgP6aonRGhmvM9E4ccBy5P Ca1ASV8dp6IyMMEnGQecdkZsBqbXNzTkSITmEvdHKb x4TYekNW9NbAYwC4ChY2SdLXbkSS5LAFVbVGCboPAcATBdEQPcKgI8VEEjDVckXF0GxKGnUAhcMQRqQO DtGyWuFARjLIXuYQKtDKFyXCJJURQzBUGuHcAzNMNnDEPgKGcvUSKJBY5LBrJaR2FuqU25GOrGKw9+DQ tdsbLkQacBYwQmIAVdm9KlSQn6OK5YXZDeSqklv8Gx GPVzEWLGHTbrXV8MWBU4UOSyNBYbHr3EVLFfS698nyMhZH7NOc7KHfKxOE7ttv6EAVHhNSTzFnpGTlg6 FJtjML6SvHKbWRnWbEXekARcI2JkJ0GmhPEgsANmtZFRKXPmhqEIKV9zU2XbVX1vMM2ZORM9CAYgGeqx SjBmIQOcTGhzXUMXCViJVrTiN1Kgm1IyDmC9FHLjUc MjCIfqIQWnUcJ5ZV01aIuoPB4QMLZbEGMqJG95MEAkPASiUn2NFk0XXtPcKH3xcx3RVJFnWRLqDmfVVm r7AFklUF1TxCRcT2DfoFCws2tQIzTwM2BFRMR0AQTfHz5PYQMkLeCoUMFyUZpmLU7aXJGrZGRReOlfpo C8VF2SCO0tobQsHG2ONiSpGd7aRb1AIkIqK4SkA3Vl NJMfMQVJWXjqXZ6WLRupDI4iTV8Fy7YEyXWjaP5xih8SWFBzMKFqIbvamv6JRtwgA1E5lJubAWHjQQXq XZHTCHziTV0SOXGnJZT2MZXqMAVrVOQDIiJjZ38xOL3CZ9Fao81aVfE7HHUxOyChHXxtCE12uMavssTm xKFqpBwlOM8ZPs2+DQplbmRvYmoNCnhyZWYNCjAgND ZUXhNtCJUxASUeRMWdLpP1MtWnXs1VPMLiIDWzICNhTnElIPHjQRQhMVqbZBPkZKN6CqS5NUKeMGRaVF 4WDyQfMHZaPcm2UBIwVMFcRXVzcr4IHVJaZXIuYIQ7VfHbAXLwGOSsTIpaCBCiBDFzOaF6NPMqFKDdFG 4VOoQoXTYtNAY9BePoPKMySPObqz6QDSWuHDSkIcM8 RsGlNPIbDJMoQCrgDEJcTIS2PebeCXOnCTNpRM5SUnHyMUAoBXQ9JWMiANJtNRLmfx0EJVAsLXJeWxVa ABUaTNLyXRLfZFokETDiPWG9OREcJZWyKLYpUA9CPnVgZCTuSOLjOMieGMJgSWTota8RCIWwOBEaFOBk BTTcNMZzNTFtCXfoOJWfZDL3GkT2YCHnASIyEG1BQp OuSLNzEbW1HEzfXSYoHPDknq9TNHGaUWKwGKKlTRCqCFAxPYOuBLrgTMDzRJEuUVGvAQHjMPWzQJ1JPq RmKQYsKmMxPXuyENTcTXXbnl0VCTZaIYKiIIV6DTHlZAVwCBTpLEfrDHAgJUX4Pcn8CBDbXYCjGI2FIb RgQRRxFnX5KMxxSKVfMVNjmt1GWZUpECGmUQNhPlLy MYYgUTCrVPigKLYdRFV1UiL3PSJhDQGvVL9VMrOaVMMnPrS1TOznDLGrYIGltf4TJGBmHCSxGxb6UbLd PFJeBGAoAYdvEUUxEXM3RPK5VFTjUJAcRH3SJgHqLLItPgqgCPWqJQStECAkgi9MJEIaSZQnIURsPyDa YGGcLKPsULuxAALoJSP6AsGsEOTyLTLfHE8OTyVvNX EnGdc3AKDvSRLkITTbak8IDGCqZEChPCD7BdKpIAEzSDNvKZejNIShDXM0ZmXlPVFjKMVdGP9NCdPfOG ArWlp9TOMwWMYrUJLcit5XNGAwCALkBDpeSsRqBYYuUAHxSWpeWMFqDUI6XCQiINKmQIUsPE5HRfRiIP AdKcWwJzOkMKKiTHQnyh0HPSQiJIGvLPH7IBXnSZJd PUApYFmpTHJcNNV8ImQkJWEgGTTeYK7WQfVwFFJiOrUxVhIsFUJkANKvpl1DPGWdJUHgVnI1XSJrHOZh GRMqPRegWKRiHFJ9PpUrOBLvPYWvKD8TViJsBMInPpp6RjSrZPBlMGToxe8CzOLlqQpxez9WTAnWHv8J uKxtBRXxZQwmQw4aiTC1RfCqRNFKAf0CztGkFQZpOX YTCNamOPCqUWM7UePaYQZaTAOnAms2UXvoGrDhOmZ6EJU0R8HgPsZlOdG5YVKfYqD8LbVcSSXzPSNhS1 P4HyLkCnjkSEA2TNUnHIC+HO9lANu+Kz4Nx2OputO9cwVdAVftZWFxSx6OWHIXO9PUSw== ID Date Data Source [id number] 06/19/2020 10:27:56 AM EDT [facility] Name Value Range Interpretation Code Description Data Laura rce(s) Supporting Document(s) Consultation [facility] NOBHOz2mSxFAYvPb59/GXGdhUDLqf3BmVZvhUJr3SNziYJRgV0NeBHP5gN3hIZG7EOvCCkWnWwLlJTJ1 lbm [file] AgICAgICAgICAgICAgICAgICAgICAgICAgICAgICAgICAgICAgICAgICAgICAgICAgICAgICAgICAgIC AgICAgICAgICAgICAgICAgICAgICAgICAgICAgICAgICAgICAgICANCiAgICAgICAgICAgICAgICAgIC AgICAgICAgICAgICAgICAgICAgICAgICAgICAgICAg ICAgICAgICAgICAgICAgICAgICAgICAgICAgICAgICAgICAgICAgICAgICAgICAgICANCiAgICAgICAg ICAgICAgICAgICAgICAgICAgICAgICAgICAgICAgICAgICAgICAgICAgICAgICAgICAgICAgICAgICAg ICAgICAgICAgICAgICAgICAgICAgICAgICAgICAgIC ANCiAgICAgICAgICAgICAgICAgICAgICAgICAgICAgICAgICAgICAgICAgICAgICAgICAgICAgICAgIC AgICAgICAgICAgICAgICAgICAgICAgICAgICAgICAgICAgICAgICAgICANCiAgICAgICAgICAgICAgIC AgICAgICAgICAgICAgICAgICAgICAgICAgICAgICAg ICAgICAgICAgICAgICAgICAgICAgICAgICAgICAgICAgICAgICAgICAgICAgICAgICAgICANCiAgICAg ICAgICAgICAgICAgICAgICAgICAgICAgICAgICAgICAgICAgICAgICAgICAgICAgICAgICAgICAgICAg ICAgICAgICAgICAgICAgICAgICAgICAgICAgICAgIC AgICANCiAgICAgICAgICAgICAgICAgICAgICAgICAgICAgICAgICAgICAgICAgICAgICAgICAgICAgIC AgICAgICAgICAgICAgICAgICAgICAgICAgICAgICAgICAgICAgICAgICAgICANCiAgICAgICAgICAgIC AgICAgICAgICAgICAgICAgICAgICAgICAgICAgICAg ICAgICAgICAgICAgICAgICAgICAgICAgICAgICAgICAgICAgICAgICAgICAgICAgICAgICAgICANCiAg ICAgICAgICAgICAgICAgICAgICAgICAgICAgICAgICAgICAgICAgICAgICAgICAgICAgICAgICAgICAg ICAgICAgICAgICAgICAgICAgICAgICAgICAgICAgIC AgICAgICANCiAgICAgICAgICAgICAgICAgICAgICAgICAgICAgICAgICAgICAgICAgICAgICAgICAgIC AgICAgICAgICAgICAgICAgICAgICAgICAgICAgICAgICAgICAgICAgICAgICAgICANCjw/lYXrA0lwcR IehmA6N8rlJz4ICs2ORR1ml1VnWBZsJHfqhoMrBzdY DfWqXFKcPkfSCun8AHwyPW7EkFLaD8PmS4PoKZctJC6JNVCuIMMnhVJmMWQjUSJqZvP1USGuNPidSV8X xZOiZWfzREFpPROsTS7HHQFcK114yoKcDJ8PZv8USwOgQF3juw2PAIIhWBRvNvxYNom6ZPgqXD5WzQLx hQLzSVSwOKZQXcIsM8plw7XsAGOmJOZOHJepHF7Ds5 VudCAxDQo+Rs3THP3ij5XjUNrgDTSkOS0amg4ADXbNMvOmN3XlcRcgELWypqW2aTXqQJZ5EPYiklbhDY fqRWFpyQhtEDIDAYTcdMT8SgM1RmEfKiFhRXI1PvsuYY5zXPguKX8KZXR3LButGBVpIOFsP6dCLyFrAH SfSvVjiScgBU1KUjOqR8VfbmFggKQgIRPcURCYGq0+ ENoidyOqWuwMNjH3XACfu1VlFDf4LP4UUSAtXPjwXZ5IAYVyvE9qHFkeGV8HKfQfYjNyCVJNCqMqI00x eIAfJZv8E1JxSfEcZWMoHuuvTLMaFAblKfHxNKUmXkOiZNmjUN7+ID4+LIlcNU6IUXjzusWlMFUlGx1O HDMsBOLtAH9fBCAxXBCwD2P0hLhvCLZHFsBjP5nlzn jeLL0tQNXiE522cOhoymAjFSX9KSUsAb3CJFSrOQV2OYNluUZoTVDjLVBDTJwhQL8RnKRmYXT8pC7hKG ppCSNgIYFyP4xDHyOxcLvqCV77vBkzwcXdfYJyMPu+Cl2DID3ld4YpKEc7qoNwSHqjOGB9XEegCDMvYD CnFGNxNUH8HVM0QMIYSgBzWBZqOJWbAFlbSYNhYDFb dv3HDXVyFUKyOLX5UFEgAOPoXODfVKisHPJcUMV1RzJ2NPGdMLLyIB1MNwPjQNLyQSAfLCmqTMTuBOEv za2NZYOkJRCqDIpfNHRwETChSCDoSXemRJIcEHSdUIY7GDTwWKPtCO1OKaVaHOIdWHC4EGtlODHyZRNr lh8FFTIeCDHpRqG6EvCyGFGlHEWhUMloQHAmVIZiCs ejCUJhMVXmVZ2VWcYqBFRuTXIyQcCxDZErUJUymy5TDLFyJWPbJZIzVgPcNFEsYORcEAnyRCUyHDF9Rp NwEIWzMUYlGN2DTaOyTTApASTzEcLpCHRgOWYcak8PDDWaBDZxBiD2KqSyDNHtPTWaGGqkLWFeNIL5MZ VeBMOpHQViOS4VOgJdCARqBTA7XjNbZIGzRLKzuu4R jNMrbJvbff7MSTdHAi4GkTwrDYY6MGolAv8txIRgYbRdLXDLPk3QbkVrNOFzXJUGFRjgHEUgTGC6SAVa [id number] ID Date Data Source [id number] 06/19/2020 05:23:06 AM EDT [facility] Name Value Range Interpretation Code Description Data Laura rce(s) Supporting Document(s) Leukocytes [#/volume] in Blood by Automated count 7.2 10*3/uL 4-10 [facility] Erythrocytes [#/volume] in Blood by Automated count 2.45 10*6/uL 4.6- 6.[address] [facility] Hemoglobin [Mass/volume] in Blood 8.1 g/dL 13.5-[address] [facility] Hematocrit [Volume Fraction] of Blood by Automated count 24.7 % 4 1-[address] [facility] Erythrocyte mean corpuscular volume [Entitic volume] b y Automated count 100.6 fL 80-[address] [facility] Erythrocyte mean corpuscular hemoglobin [Entitic mass] by Automated count 33.2 pg 27-[address] [facility] Erythrocyte mean corpuscular hemoglobin concentration [Mass/volume] by Automated count 33.0 g/[facility].0[facility] width [Ratio] by Automated count 16.3 % 11.5-14.5 [facility] Platelets [#/volume] in Blood by Automated count 58 10*3/uL 150-[address] [facility] Differential cell count method - Blood [facility] Neutrophils/100 leukocytes in Blood by Automated count 71 % [facility] Lymphocytes/100 leukocytes in Blood by Automated count 9 % [facility] Monocytes/100 leukocytes in Blood by Automated count 18 % [facility] Eosinophils/100 leukocytes in Blood by Automated count 1 % [facility] Basophils/100 leukocytes in Blood by Automated count 1 % [facility] Neutrophils [#/volume] in Blood by Automated count 5.19 10*3/uL 1.8-[address] [facility] Lymphocytes [#/volume] in Blood by Automated count 0.62 10*3/uL 1.2-[address] [facility] Monocytes [#/volume] in Blood by Automated count 1.27 10*3/uL 0-0.[address] [facility] Eosinophils [#/volume] in Blood by Automated count 0.09 10*3/uL 0-0.5 [facility] Basophils [#/volume] in Blood by Automated count 0.07 10*3/uL 0-0.2 [facility] Nucleated erythrocytes/100 leukocytes [Ratio] in Blood by Automated count 0 /100{WBCs} 0-0 [facility] ID Date Data Source [id number] 06/19/2020 05:31:50 AM EDT [facility] Name Value Range Interpretation Code Description Data Laura rce(s) Supporting Document(s) Bicarbonate [Moles/volume] in Serum 26 mmol/L 22-29 [facility] Chloride [Moles/volume] in Serum or Plasma 95 mmol/L 98-[address] [facility] Creatinine [Mass/volume] in Serum or Plasma 1.12 mg/dL 0.70-1.20 [facility] Glucose [Mass/volume] in Serum or Plasma 161 mg/dL 70-[address] [facility] Potassium [Moles/volume] in Serum or Plasma 4.2 mmol/L 3.4-5.1 [facility] Sodium [Moles/volume] in Serum or Plasma 128 mmol/L 136-[address] [facility] Urea nitrogen [Mass/volume] in Serum or Plasma 23 mg/dL 6-[address] [facility] Anion gap 3 in Serum or Plasma 7 mmol/L 8-[address] [facility] Osmolality of Serum or Plasma by calculation 273 mosm/kg 275-[address] [facility] Creatinine/Urea nitrogen [Mass Ratio] in Serum or Plasma 21 [facility] Calcium [Mass/volume] in Serum or Plasma 9.2 mg/dL 8.6-10.0 [facility] Glomerular filtration rate/1.73 sq M pre dicted among non-blacks [Volume Rate/Area] in Serum or Plasma by Creatinine-based formula (MDRD) 70 mL/min/1.73m2 >60 [facility] Glomerular filtration rate/1.73 sq M pre dicted among blacks [Volume Rate/Area] in Serum or Plasma by Creatinine-based formula (MDRD) 81 mL/min/1.73m2 >60 [facility] ID Date Data Source [id number] 06/18/2020 08:05:[address] [facility] Name Value Range Interpretation Code Description Data Laura rce(s) Supporting Document(s) Prothrombin time (PT) 18.4 s 12.5-14.[address] [facility] INR in Platelet poor plasma by Coagulation assay 1.51 [facility] Routine intensity oral anticoagulation I NR is typically 2.0-3.0. Target INR must be clinically individualized. ID Date Data Source [id number] 06/18/2020 08:46:[address] [facility] Name Value Range Interpretation Code Description Data Laura rce(s) Supporting Document(s) Leukocytes [#/volume] in Blood by Automated count 7.4 10*3/uL 4-10 [facility] Erythrocytes [#/volume] in Blood by Automated count 2.64 10*6/uL 4.6- 6.[address] [facility] Hemoglobin [Mass/volume] in Blood 8.9 g/dL 13.5-[address] [facility] Hematocrit [Volume Fraction] of Blood by Automated count 26.8 % 4 1-[address] [facility] Erythrocyte mean corpuscular volume [Entitic volume] b y Automated count 101.6 fL 80-[address] [facility] Erythrocyte mean corpuscular hemoglobin [Entitic mass] by Automated count 33.7 pg 27-[address] [facility] Erythrocyte mean corpuscular hemoglobin concentration [Mass/volume] by Automated count 33.1 g/dL 32.0-36.0 [facility] E[facility] distribution width [Ratio] by Automated count 16.4 % 11.5-14.[address] [facility] Platelets [#/volume] in Blood by Automated count 60 10*3/uL 150-[address] [facility] Differential cell count method - Blood [facility] Neutrophils/100 leukocytes in Blood by Automated count 71 % [facility] Lymphocytes/100 leukocytes in Blood by Automated count 8 % [facility] Monocytes/100 leukocytes in Blood by Automated count 18 % [facility] Eosinophils/100 leukocytes in Blood by Automated count 2 % [facility] Basophils/100 leukocytes in Blood by Automated count 1 % [facility] Neutrophils [#/volume] in Blood by Automated count 5.25 10*3/uL 1.8-[address] [facility] Lymphocytes [#/volume] in Blood by Automated count 0.56 10*3/uL 1.2-[address] [facility] Monocytes [#/volume] in Blood by Automated count 1.36 10*3/uL 0-0.[address] [facility] Eosinophils [#/volume] in Blood by Automated count 0.14 10*3/uL 0-0.5 [facility] Basophils [#/volume] in Blood by Automated count 0.08 10*3/uL 0-0.2 [facility] Nucleated erythrocytes/100 leukocytes [Ratio] in Blood by Automated count 0 /100{WBCs} 0-0 [facility] ID Date Data Source [id number] 06/18/2020 09:19:18 AM EDT [facility] Name Value Range Interpretation Code Description Data Laura rce(s) Supporting Document(s) Albumin [Mass/volume] in Serum or Plasma by Bromocresol green (BCG) dye binding method 2.8 g/dL 3.5-5.2 [facility] Bilirubin.total [Mass/volume] in Serum or Plasma 2.7 mg/dL <1.[address] [facility] Calcium [Mass/volume] in Serum or Plasma 9.0 mg/dL 8.6-10.0 [facility] Chloride [Moles/volume] in Serum or Plasma 95 mmol/L 98-[address] [facility] Creatinine [Mass/volume] in Serum or Plasma 1.14 mg/dL 0.70-1.20 [facility] Glucose [Mass/volume] in Serum or Plasma 150 mg/dL 70-[address] [facility] Alkaline phosphatase [Enzymatic activity/volume] in Serum or Plasma 171 U/L 40-[address] [facility] Potassium [Moles/volume] in Serum or Plasma 4.2 mmol/L 3.4-5.1 [facility] Protein [Mass/volume] in Serum or Plasma 6.5 g/dL 6.4-8.3 [facility] Sodium [Moles/volume] in Serum or Plasma 125 mmol/L 136-[address] [facility] Aspartate aminotransferase [Enzymatic activity/volume] in Serum or Plasma 37 U/L <40 [facility] Urea nitrogen [Mass/volume] in Serum or Plasma 22 mg/dL 6-[address] [facility] Osmolality of Serum or Plasma by calculation 266 mosm/kg 275-[address] [facility] Creatinine/Urea nitrogen [Mass Ratio] in Serum or Plasma 19 [facility] Bicarbonate [Moles/volume] in Serum 24 mmol/L 22-29 [facility] Alanine aminotransferase [Enzymatic activity/volume] in Seru m or Plasma 22 U/L <41 [facility] Anion gap 3 in Serum or Plasma 6 mmol/L 8-[address] [facility] Glomerular filtration rate/1.73 sq M pre dicted among non-blacks [Volume Rate/Area] in Serum or Plasma by Creatinine-based formula (MDRD) 69 mL/min/1.73m2 >60 [facility] Glomerular filtration rate/1.73 sq M pre dicted among blacks [Volume Rate/Area] in Serum or Plasma by Creatinine-based formula (MDRD) 80 mL/min/1.73m2 >60 [facility] ID Date Data Source [id number] 06/18/2020 06:34:13 AM EDT [facility] Value Range Interpretation Code Description Data Laura rce(s) Supporting Document(s) Specimen source [Identifier] of Unspecified specimen [facility] SARS-CoV-2 RNA 2019 nCoV Real-Time RT-PCR: NOT DETECTED [facility] Assay Performed [facility] Patients first test for [facility] Patient employed in healthcare setting [facility] Patient has symptoms related to [facility] When did you start to experience these symptoms [Date and time] [Phen X] [facility] Patient was hospitalized because of this condition [facility] patient was admitted to ICU for [facility] Patient resides in a congregate care setting [facility] status [facility] ID Date Data Source [id number] 06/17/2020 12:25:00 PM EDT [facility] Name Value Range Interpretation Code Description Data Laura rce(s) Supporting Document(s) SARS-CoV-2 RNA 2019 nCoV Real-Time RT-PCR: NOT DETECTED [facility] This lab was ordered by [facility] and reported by [facility]. ID Date Data Source [id number] 06/17/2020 04:03:56 AM EDT [facility] Name Value Range Interpretation Code Description Data Laura rce(s) Supporting Document(s) Leukocytes [#/volume] in Blood by Automated count 7.2 10*3/uL 4-10 [facility] Erythrocytes [#/volume] in Blood by Automated count 2.47 10*6/uL 4.6- 6.1 [facility] Hemoglobin [Mass/volume] in Blood 8.3 g/dL 13.5-[address] [facility] Hematocrit [Volume Fraction] of Blood by Automated count 25.2 % 4 1-[address] [facility] Erythrocyte mean corpuscular volume [Entitic volume] b y Automated count 101.8 fL 80-[address] [facility] Erythrocyte mean corpuscular hemoglobin [Entitic mass] by Automated count 33.6 pg 27-[address] [facility] Erythrocyte mean corpuscular hemoglobin concentration [Mass/volume] by Automated count 33.0 g/dL 32.0-36.0 [facility] Erythrocyte distribution width [Ratio] by Automated count 16.6 % 11.5-14.5 [facility] Platelets [#/volume] in Blood by Automated count 59 10*3/uL 150-400 [facility] Differential cell count method - Blood [facility] Neutrophils/100 leukocytes in Blood by Automated count 68 % [facility] Lymphocytes/100 leukocytes in Blood by Automated count 7 % [facility] Monocytes/100 leukocytes in Blood by Automated count 22 % [facility] Eosinophils/100 leukocytes in Blood by Automated count 2 % [facility] Basophils/100 leukocytes in Blood by Automated count 1 % [facility] Neutrophils [#/volume] in Blood by Automated count 4.93 10*3/uL 1.8-[address] [facility] Lymphocytes [#/volume] in Blood by Automated count 0.48 10*3/uL 1.2-4 .0 [facility] Monocytes [#/volume] in Blood by Automated count 1.60 10*3/uL 0-0.[address] [facility] Eosinophils [#/volume] in Blood by Automated count 0.17 10*3/uL 0-0.5 [facility] Basophils [#/volume] in Blood by Automated count 0.06 10*3/uL 0-0.2 [facility] Nucleated erythrocytes/100 leukocytes [Ratio] in Blood by Automated count 0 /100{WBCs} 0-0 [facility] ID Date Data Source [id number] 06/17/2020 04:17:[address] [facility] Name Value Range Interpretation Code Description Data Laura rce(s) Supporting Document(s) Bicarbonate [Moles/volume] in Serum 24 mmol/L 22-29 [facility] Chloride [Moles/volume] in Serum or Plasma 95 mmol/L 98-[address] [facility] Creatinine [Mass/volume] in Serum or Plasma 1.13 mg/dL 0.70-1.20 [facility] Glucose [Mass/volume] in Serum or Plasma 198 mg/dL 70-[address] [facility] Potassium [Moles/volume] in Serum or Plasma 4.3 mmol/L 3.4-5.1 [facility] Sodium [Moles/volume] in Serum or Plasma 128 mmol/L 136-[address] [facility] Urea nitrogen [Mass/volume] in Serum or Plasma 23 mg/dL 6-[address] [facility] Anion gap 3 in Serum or Plasma 10 mmol/L 8-15 [facility] Osmolality of Serum or Plasma by calculation 276 mosm/kg 275-300 [facility] Creatinine/Urea nitrogen [Mass Ratio] in Serum or Plasma 20 [facility] Calcium [Mass/volume] in Serum or Plasma 8.8 mg/dL 8.6-10.0 [facility] Glomerular filtration rate/1.73 sq M pre dicted among non-blacks [Volume Rate/Area] in Serum or Plasma by Creatinine-based formula (MDRD) 69 mL/min/1.73m2 >60 [facility] Glomerular filtration rate/1.73 sq M pre dicted among blacks [Volume Rate/Area] in Serum or Plasma by Creatinine-based formula (MDRD) 80 mL/min/1.73m2 >60 [facility] ID Date Data Source [id number] 06/17/2020 04:17:[address] [facility] Name Value Range Interpretation Code Description Data Laura rce(s) Supporting Document(s) Magnesium [Mass/volume] in Serum or Plasma 1.9 mg/dL 1.6-2.6 [facility] ID Date Data Source [id number] 06/17/2020 04:17:[address] [facility] Name Value Range Interpretation Code Description Data Laura rce(s) Supporting Document(s) Phosphate [Mass/volume] in Serum or Plasma 3.4 mg/dL 2.5-4.5 [facility] ID Date Data Source [id number] 06/16/2020 04:35:58 AM EDT [facility] Name Value Range Interpretation Code Description Data Laura rce(s) Supporting Document(s) Leukocytes [#/volume] in Blood by Automated count 7.6 10*3/uL 4-10 [facility] Erythrocytes [#/volume] in Blood by Automated count 2.53 10*6/uL 4.6- 6.[address] [facility] Hemoglobin [Mass/volume] in Blood 8.5 g/dL 13.5-[address] [facility] Hematocrit [Volume Fraction] of Blood by Automated count 25.6 % 4 1-[address] [facility] Erythrocyte mean corpuscular volume [Entitic volume] b y Automated count 101.2 fL 80-[address] [facility] Erythrocyte mean corpuscular hemoglobin [Entitic mass] by Automated count 33.5 pg 27-[address] [facility] Erythrocyte mean corpuscular hemoglobin concentration [Mass/volume] by Automated count 33.1 g/dL 32.0-36.0 [facility] Erythrocyte distribution width [Ratio] by Automated count 16.9 % 11.5-14.[address] [facility] Platelets [#/volume] in Blood by Automated count 55 10*3/uL 150-[address] [facility] Differential cell count method - Blood [facility] Neutrophils/100 leukocytes in Blood by Automated count 63 % [facility] Lymphocytes/100 leukocytes in Blood by Automated count 7 % [facility] Monocytes/100 leukocytes in Blood by Automated count 26 % [facility] Eosinophils/100 leukocytes in Blood by Automated count 3 % [facility] Basophils/100 leukocytes in Blood by Automated count 1 % [facility] Neutrophils [#/volume] in Blood by Automated count 4.85 10*3/uL 1.8-[address] [facility] Lymphocytes [#/volume] in Blood by Automated count 0.57 10*3/uL 1.2-[address] [facility] Monocytes [#/volume] in Blood by Automated count 1.94 10*3/uL 0-0.[address] [facility] Eosinophils [#/volume] in Blood by Automated count 0.20 10*3/uL 0-0.5 [facility] Basophils [#/volume] in Blood by Automated count 0.05 10*3/uL 0-0.2 [facility] Nucleated erythrocytes/100 leukocytes [Ratio] in Blood by Automated count 0 /100{WBCs} 0-0 [facility] ID Date Data Source [id number] 06/16/2020 05:02:[address] [facility] Name Value Range Interpretation Code Description Data Laura rce(s) Supporting Document(s) Magnesium [Mass/volume] in Serum or Plasma 1.9 mg/dL 1.6-2.6 [facility] ID Date Data Source [id number] 06/16/2020 05:02:[address] [facility] Name Value Range Interpretation Code Description Data Laura rce(s) Supporting Document(s) Bicarbonate [Moles/volume] in Serum 26 mmol/L 22-29 [facility] Chloride [Moles/volume] in Serum or Plasma 94 mmol/L 98-[address] [facility] Creatinine [Mass/volume] in Serum or Plasma 1.12 mg/dL 0.70-1.20 [facility] Glucose [Mass/volume] in Serum or Plasma 170 mg/dL 70-[address] [facility] Potassium [Moles/volume] in Serum or Plasma 4.2 mmol/L 3.4-5.1 [facility] Sodium [Moles/volume] in Serum or Plasma 125 mmol/L 136-[address] [facility] Urea nitrogen [Mass/volume] in Serum or Plasma 20 mg/dL 6-20 [facility] Anion gap 3 in Serum or Plasma 5 mmol/L 8-[address] [facility] Osmolality of Serum or Plasma by calculation 267 mosm/kg 275-[address] [facility] Creatinine/Urea nitrogen [Mass Ratio] in Serum or Plasma 18 [facility] Calcium [Mass/volume] in Serum or Plasma 8.5 mg/dL 8.6-10.[address] [facility] Glomerular filtration rate/1.73 sq M pre dicted among non-blacks [Volume Rate/Area] in Serum or Plasma by Creatinine-based formula (MDRD) 70 mL/min/1.73m2 >60 [facility] Glomerular filtration rate/1.73 sq M pre dicted among blacks [Volume Rate/Area] in Serum or Plasma by Creatinine-based formula (MDRD) 81 mL/min/1.73m2 >60 [facility] ID Date Data Source [id number] 06/16/2020 05:02:[address] [facility] Name Value Range Interpretation Code Description Data Laura rce(s) Supporting Document(s) Phosphate [Mass/volume] in Serum or Plasma 2.9 mg/dL 2.5-4.5 [facility] ID Date Data Source [id number] 06/15/2020 04:29:[address] [facility] Name Value Range Interpretation Code Description Data Laura rce(s) Supporting Document(s) Leukocytes [#/volume] in Blood by Automated count 8.4 10*3/uL 4-10 [facility] Erythrocytes [#/volume] in Blood by Automated count 2.53 10*6/uL 4.6- 6.[address] [facility] Hemoglobin [Mass/volume] in Blood 8.6 g/dL 13.5-[address] [facility] Hematocrit [Volume Fraction] of Blood by Automated count 25.3 % 4 1-[address] [facility] Erythrocyte mean corpuscular volume [Entitic volume] b y Automated count 100.3 fL 80-[address] [facility] Erythrocyte mean corpuscular hemoglobin [Entitic mass] by Automated count 33.9 pg 27-[address] [facility] Erythrocyte mean corpuscular hemoglobin concentration [Mass/volume] by Automated count 33.8 g/dL 32.0-36.0 [facility] E[facility]th[facility] distribution width [Ratio] by Automated count 16.7 % 11.5-14.[address] [facility] Platelets [#/volume] in Blood by Automated count 60 10*3/uL 150-[address] [facility] Differential cell count method - Blood [facility] Neutrophils/100 leukocytes in Blood by Automated count 65 % [facility] Lymphocytes/100 leukocytes in Blood by Automated count 7 % [facility] Monocytes/100 leukocytes in Blood by Automated count 25 % [facility] Eosinophils/100 leukocytes in Blood by Automated count 2 % [facility] Basophils/100 leukocytes in Blood by Automated count 1 % [facility] Neutrophils [#/volume] in Blood by Automated count 5.55 10*3/uL 1.8-[address] [facility] Lymphocytes [#/volume] in Blood by Automated count 0.55 10*3/uL 1.2-[address] [facility] Monocytes [#/volume] in Blood by Automated count 2.11 10*3/uL 0-0.[address] [facility] Eosinophils [#/volume] in Blood by Automated count 0.17 10*3/uL 0-0.5 [facility] Basophils [#/volume] in Blood by Automated count 0.04 10*3/uL 0-0.2 [facility] Nucleated erythrocytes/100 leukocytes [Ratio] in Blood by Automated count 0 /100{WBCs} 0-0 [facility] ID Date Data Source [id number] 06/15/2020 05:13:[address] [facility] Name Value Range Interpretation Code Description Data Laura rce(s) Supporting Document(s) Bicarbonate [Moles/volume] in Serum 24 mmol/L 22-29 [facility] Chloride [Moles/volume] in Serum or Plasma 93 mmol/L 98-[address] [facility] Creatinine [Mass/volume] in Serum or Plasma 1.02 mg/dL 0.70-1.20 [facility] Glucose [Mass/volume] in Serum or Plasma 137 mg/dL 70-140 [facility] Potassium [Moles/volume] in Serum or Plasma 4.5 mmol/L 3.4-5.1 [facility] Sodium [Moles/volume] in Serum or Plasma 126 mmol/L 136-[address] [facility] Urea nitrogen [Mass/volume] in Serum or Plasma 21 mg/dL 6-[address] [facility] Anion gap 3 in Serum or Plasma 9 mmol/L 8-15 [facility] Osmolality of Serum or Plasma by calculation 267 mosm/kg 275-[address] [facility] Creatinine/Urea nitrogen [Mass Ratio] in Serum or Plasma 21 [facility] Calcium [Mass/volume] in Serum or Plasma 8.3 mg/dL 8.6-10.[address] [facility] Glomerular filtration rate/1.73 sq M pre dicted among non-blacks [Volume Rate/Area] in Serum or Plasma by Creatinine-based formula (MDRD) 79 mL/min/1.73m2 >60 [facility] Glomerular filtration rate/1.73 sq M pre dicted among blacks [Volume Rate/Area] in Serum or Plasma by Creatinine-based formula (MDRD) >60 [facility] ID Date Data Source [id number] 06/15/2020 05:13:19 AM [facility] Value Range Interpretation Code Description Data Laura rce(s) Supporting Document(s) Magnesium [Mass/volume] in Serum or Plasma 2.1 mg/dL 1.6-2.6 [facility] ID Date Data Source [id number] 06/15/2020 05:13:[address] [facility] Name Value Range Interpretation Code Description Data Laura rce(s) Supporting Document(s) Phosphate [Mass/volume] in Serum or Plasma 2.1 mg/dL 2.5-4.[address] [facility] ID Date Data Source [id number] 06/15/2020 12:33:[address] [facility] Name Value Range Interpretation Code Description Data Laura rce(s) Supporting Document(s) Albumin [Mass/volume] in Serum or Plasma by Bromocresol green (BCG) dye binding method 3.0 g/dL 3.5-5.2 L [facility] Bilirubin.total [Mass/volume] in Serum or Plasma 3.0 mg/dL <1.[address] [facility] Confirmed Bilirubin.direct [Mass/volume] in Serum or Plasma 1.3 mg/dL <0.[address] [facility] Alkaline phosphatase [Enzymatic activity/volume] in Serum or Plasma 124 U/L 40-129 [facility] Aspartate aminotransferase [Enzymatic activity/volume] in Serum or Plasma 29 U/L <40 [facility] Alanine aminotransferase [Enzymatic activity/volume] in Seru m or Plasma 15 U/L <41 [facility] Protein [Mass/volume] in Serum or Plasma 5.9 g/dL 6.4-8.[address] [facility] ID Date Data Source [id number] 06/14/2020 04:30:34 PM [facility] Value Range Interpretation Code Description Data Laura rce(s) Supporting Document(s) [facility] [id number] [facility] [file] AgICAgICAgICAgICAgICAgICAgICAgICAgICAgICAgICAgICAgICAgICAgICAgICAgICAgICAgICAgIC AgICAgICAgICAgICAgICAgICAgICAgICAgDQogICAgICAgICAgICAgICAgICAgICAgICAgICAgICAgIC AgICAgICAgICAgICAgICAgICAgICAgICAgICAgICAg ICAgICAgICAgICAgICAgICAgICAgICAgICAgICAgICAgICAgDQogICAgICAgICAgICAgICAgICAgICAg ICAgICAgICAgICAgICAgICAgICAgICAgICAgICAgICAgICAgICAgICAgICAgICAgICAgICAgICAgICAg ICAgICAgICAgICAgICAgICAgDQogICAgICAgICAgIC AgICAgICAgICAgICAgICAgICAgICAgICAgICAgICAgICAgICAgICAgICAgICAgICAgICAgICAgICAgIC AgICAgICAgICAgICAgICAgICAgICAgICAgICAgDQogICAgICAgICAgICAgICAgICAgICAgICAgICAgIC AgICAgICAgICAgICAgICAgICAgICAgICAgICAgICAg ICAgICAgICAgICAgICAgICAgICAgICAgICAgICAgICAgICAgICAgDQogICAgICAgICAgICAgICAgICAg ICAgICAgICAgICAgICAgICAgICAgICAgICAgICAgICAgICAgICAgICAgICAgICAgICAgICAgICAgICAg ICAgICAgICAgICAgICAgICAgICAgDQogICAgICAgIC AgICAgICAgICAgICAgICAgICAgICAgICAgICAgICAgICAgICAgICAgICAgICAgICAgICAgICAgICAgIC AgICAgICAgICAgICAgICAgICAgICAgICAgICAgICAgDQogICAgICAgICAgICAgICAgICAgICAgICAgIC AgICAgICAgICAgICAgICAgICAgICAgICAgICAgICAg ICAgICAgICAgICAgICAgICAgICAgICAgICAgICAgICAgICAgICAgICAgDQogICAgICAgICAgICAgICAg ICAgICAgICAgICAgICAgICAgICAgICAgICAgICAgICAgICAgICAgICAgICAgICAgICAgICAgICAgICAg ICAgICAgICAgICAgICAgICAgICAgICAgDQogICAgIC AgICAgICAgICAgICAgICAgICAgICAgICAgICAgICAgICAgICAgICAgICAgICAgICAgICAgICAgICAgIC VlDYLxMKBcKJUrKGXrBQTdKVYrSTJpQXKdSIEeHSPpUGUpKIt0P8mzDQCzWALoIK4vAZi7Js2+DQoNCm MkVFU3tpJolZ0MUV0ok3PrQFumMGPui4RfNVg8IN9G DOHhGXxzJG7BGGtejz7VLOCbCQVhvBXCr1frMyNgOOL9JNEzOfogQV1BLLDvB4hafsOqUUKmOGCAKKzx VGXLUFieQWMKLXWqHLPsZeQcLsUcLPZhZPYiXSUKGEB3IOMcEsEfEMUtAMYnYM4XGHKxO843gdYoGC3V Qy4OXzVxVG9vph5LOnJaHPUyCcyTHnz0UIfpKE7LsI DfxCAbELFzVFCQDfQnL1jca8EaWgYkCHBPPJpeGO5To5RvcPRnKDd+Dl4HVX2ar5HkIChlEWUyFY9lru 2TKOlUWtXhU7DqnKxtOMNlbiM2xXUrIYX4FGVbiejpkCmkSZZKHTysB2QpzevhbWxkIEWmEELgMT7tSf 4aMILsEROvNrT8QMKRJC3GKTTrLBQcvOApPBIeEYLV RO6BPKdiBAN9MSNsguAxfRWpAVkeFL1BSVLylqNrViVwHRXXOBx+Zs7XFG4ki6FfJTcuRBQhIV2hfr1W PGjVHlCtL8N1mEKeJ1I8WKkhYv8URRGoYTZnJsHhJVFTIPtuUM0QVI0vxdZ2EB5WeHRsCGJtGFQlvFNf SBp2G30adGEgQNsjRD2YMKU+Fady+Fh2WEKMoHTPpVE RaRjKsAGNPGqMzC8UzL6VSg1FvO9TqCP57uSgaqfAyNFxeGD1BQR2qBRLmZGIBUE1HqJJvbG9athVeTi NuIZLBVzJvQ91efMTeJUIxMDDjFFRsPf9PUAIfO0GogdIsvGzmqyMiVSDkTHCQGZ9WSGewtvDxzUQkrQ ejEW85aCwpSX9WGx0EFgEoYU4yqa9YkBFyPd6LOZYu Ey2IQXZiHTXoPNFlYXD3PREaXvNyXHbtSVAoQPDxGJH3USWmOZWtFB1CBnHkYXZiVBXfPlDvSSUxJSEd gw1ZZWMbQGP9PgL5RlOxUACvNAHuAFtdOGFhXAYfPDH4WRHsAQRuNI6YWoEcQZSwQCY8EJwgDIHxEQAg oc4IAFCoMFWcLYC0OjUyKTKxTAZtREwtLDQrNRS4Gg D4ZMIlVLFzYN3OBwZhNCTbSAz4WZnvTJToPZMcdi9CJSQuJTFxGhG1CTMsDOOgNAQnCPtxMGVvFTHrUM AgHGGpBJGwYQ1SRkHjQKFvKLW6FZPjWONxJACkyo1GTCWpYCPvKyw5RyZfQBNtZNVwZWvvBWGuYOTrDp u8BUPoGMPqWL7AQmPiQQShLdZ5SKBkFBKuNNOawe7R MXJmQBQcPse2XnHbWIDyWBUoNOyzEMHdDGL6GEDcDPTkPRFcWP7CSlRzUFLyRxS2LosmJKRqMDVqjo1J LLTgTSBaSim7XNQmGJNzCBCqYOvzEOAjCYY8GTNgUHStVLCnBP5VBjWqNLTgYccuKLDxJYLaLDDmww7I LXBsSVYcPFE9QhSkRSZbWBAaBJbjAUFoUGGdDWcuTX PxJZNgCE9DKwKvZRPwOqB0DPIuPUWpIHLcgo5ZTEAeDNZoRPJkBDEfMVMzQXGpPApbLSNgUPXiEEJ0CG IeCNKjHE1MCpNrPLMaRoZpRGWpNXAaYVUcni1CTAVnPVW8SvC4TVTmPXMrNSShTTelGXNnJDJxAiO3SS WdBJHpGN5FWnGrXGVtQFE8SEocMNPkQFFesi7SLIFv QHU0XXM6FnCyWUVoKQQlSEtyXSJaZSX5SnAiFUSsHZZgPW1POdLfGTUzPUL5MXTwDDUlZIOskh8XEGQb SKS6YdH9LWUrPJEvTQLbISirLRCkRSI9ZeH1RUPwUEDmFO7YFhNeYJLwRDV3ILhaNQAdBAKslp5WoONd kYwzyf5NCOyMSh0NtZcuGQJ4VQwmVj8jtQOvLUXqHZ OTDd1BhjCiCIMbQLMUXRdcVSZfAAZ5V7QyMdP2LWK3JKF7ELewC8TpHtH2EVFoGey3OOWtHaE9Oph9UH GvGUI0JRDiMlK4GCIxFQUgUOJeJJUfApE2UCY+GM2vHCw+Xj9Qz4UgkjN1czGxSXn5UwC7Aa5YWGCSZ6 YNCg== ID Date Data Source [id number] 06/14/2020 04:04:00 PM EDT [facility] Name Value Range Interpretation Code Description Data Laura rce(s) Supporting Document(s) SARS-CoV-2 RNA 2019 nCoV Real-Time RT-PCR: NOT DETECTED [facility] This lab was ordered by [facility] and reported by [facility]. ID Date Data Source [id number] 06/14/2020 07:53:53 PM EDT [facility] Name Value Range Interpretation Code Description Data Laura rce(s) Supporting Document(s) Specimen source [Identifier] of Unspecified specimen [facility] SARS-CoV-2 RNA 2019 nCoV Real-Time RT-PCR: NOT DETECTED [facility] Assay Performed [facility] Patients first test for condition [facility] Patient employed in healthcare setting [facility] Patient has symptoms related to condition [facility] When did you start to experience these symptoms [Date and time] [Phen X] [facility] Patient was hospitalized because of this condition [facility] patient was admitted to ICU for condition [facility] Patient resides in a congregate care setting [facility] status [facility] ID Date Data Source [id number] 06/14/2020 03:26:05 PM EDT [facility] Name Value Range Interpretation Code Description Data Laura rce(s) Supporting Document(s) Consultation [facility] WVVJQs9zKfJVOvOu67/RDYpxRFSgc9WeKOpoPZk7PZniEAPoH6VdGKT9mS7cBIJ2IPyAGfIkPtSjZLHd lbm [file] AgICAgICAgICAgICAgICAgICAgICAgICAgICAgICAg ICAgICAgICAgICAgICAgICAgICAgICAgICAgICAgICAgICAgICAgICAgICAgICAgICAgDQogICAgICAg ICAgICAgICAgICAgICAgICAgICAgICAgICAgICAgICAgICAgICAgICAgICAgICAgICAgICAgICAgICAg ICAgICAgICAgICAgICAgICAgICAgICAgICAgICAgIC AgDQogICAgICAgICAgICAgICAgICAgICAgICAgICAgICAgICAgICAgICAgICAgICAgICAgICAgICAgIC AgICAgICAgICAgICAgICAgICAgICAgICAgICAgICAgICAgICAgICAgICAgDQogICAgICAgICAgICAgIC AgICAgICAgICAgICAgICAgICAgICAgICAgICAgICAg ICAgICAgICAgICAgICAgICAgICAgICAgICAgICAgICAgICAgICAgICAgICAgICAgICAgICAgDQogICAg ICAgICAgICAgICAgICAgICAgICAgICAgICAgICAgICAgICAgICAgICAgICAgICAgICAgICAgICAgICAg ICAgICAgICAgICAgICAgICAgICAgICAgICAgICAgIC AgICAgDQogICAgICAgICAgICAgICAgICAgICAgICAgICAgICAgICAgICAgICAgICAgICAgICAgICAgIC AgICAgICAgICAgICAgICAgICAgICAgICAgICAgICAgICAgICAgICAgICAgICAgDQogICAgICAgICAgIC AgICAgICAgICAgICAgICAgICAgICAgICAgICAgICAg ICAgICAgICAgICAgICAgICAgICAgICAgICAgICAgICAgICAgICAgICAgICAgICAgICAgICAgICAgDQog ICAgICAgICAgICAgICAgICAgICAgICAgICAgICAgICAgICAgICAgICAgICAgICAgICAgICAgICAgICAg ICAgICAgICAgICAgICAgICAgICAgICAgICAgICAgIC AgICAgICAgDQogICAgICAgICAgICAgICAgICAgICAgICAgICAgICAgICAgICAgICAgICAgICAgICAgIC AgICAgICAgICAgICAgICAgICAgICAgICAgICAgICAgICAgICAgICAgICAgICAgICAgDQogICAgICAgIC AgICAgICAgICAgICAgICAgICAgICAgICAgICAgICAg ICAgICAgICAgICAgICAgICAgICAgICAgICAgICAgICAgICAgICAgICAgICAgICAgICAgICAgICAgICAg PCa2V3sgLCPtXKTtYZ2eXZt7Uh0+ODyTFaFoSBK4hiUzuY4XPW2vd8KvWQqoMVFiq9DoHAf5JX1ZTLVk IIruSV5OYRnbxf3RPMCkTJWhyVLSl8hdToZhFDY1GU MrJgusIX4RURKqL7ysxuWoCCSxXAQLKM5NAyTcZ9CndJ36WOQEBn4+WFgtszIvCnjHWhN5FIIce4CaEL e7YT2RYUDfSlwqh9LnPBrkDVYOBVueZW6DJZF9HKY9FBRmQi2CILUhQ287sfMyBR3OJa4KJiIzIN7cfo 5FTVomFCFtZdpLDgo1XYvqCQ9KoCYeDCaEl64etPn8 stWsgXVJEYViCG1toyRgfdamDy9gICWdYJ6iYb5cGSKpPAWpWfF0ATYPFN8KKBKkWCZwoWCmRBXhSYUJ DV3RYEbpCXE1FYOlvbZloYOnQNtyJW2ASRAdhhUcHYytAENLNNh+Iz7YNL4va9QjSGyiLHJpIE9ael4G RFbVXdWrV9J6vINbD2E2HGhsSe4KRKSwEUBpTPSnOP SLCXycWD2NJP9qkkR2QR0DpYJiXQOmAJYomKDdLZv0U31raNOrKJjxBX0LBQC+Fady+Vg3KVDYbHDRwDS DeJaYmYJLEYeUiC1PvX6ZNi3HhD1WcHS79vWngtuShCTpoAY1IAF9rOHBaFXEWNG6NxKXvrW8glbGgZb UuAZBHKcJrX36rhHNyACSdXWR0RXDkHi1DZDZvJ8Qk bzVzxXqomfKuDRByRLTSIH9YVWqlobBbuCEhiYlwMH73mCmrVX3MKp3AWyKrBS6uqz2JmSJmNn5VRHAa ZI9SEYGjOSPdUVXvJAL2EDBxUoJzKTykWPAkLJPnLPY7LMUnPRZtKC9UNuQbBBRsSNM6SAPbGUQwQAKw rs1XKMWlLTEmZwV6WKOcOJEiRKNuYTuqWUZmPYNkPN O6OQQqCKCzRO6JBbIzAVFvMRT2THAtJIEaYOEapk4PMVNrSWVsJSn4SVGgXWQyTDYmSHkwPUKsFZNeMN Z8UMQpJVKnBX4IGlZlALWjGTNjJZGhKWPbRDNrrg1MVQRbJXDjLwFyHIFyJPTxYKHrYQmiFYJsSBV3PB i9OQJeIEZvPZ9MRjYiSSJkNLZoXWAzZEImBPTiyv1W DNAbBKEjLID8MpWlPDQjQDFuUUtdXWSxLAX8QMF8VTDdATUxUR4FZmVmAMUtUYZ3IvUmZCMiRSXkdn0B GTMrNDXjTGliYzYlXDEkEHBsBHcfCSXeBVH4EkA7UIImRYPoGL8GMdPjULHsJSa9BzykOREgLOKheq6O MYEnFDNfPbc7AGOpOKZeFOZjOXnhMXTzBTD5CAa3DQ IkUNExZS6LNwKzURfzSPEMAba5WPteH8q5NLZhDR9YT0Isf2UcHQzyDPKMKTopZX6bgoOkNRRaYf7WI9 wODbgeSAkgHjHvRoV8DVCsWSL4H6A7TcN6MKTkGbFgMhq2HO3kZILdQPRgKSNkOIb1C6O5AjluOwlrVR N9UIU2BXVyHhE0BkRoNG3VXi9DHvQ6RQQ8yONxVs8PQZXbYd5GCKHEH3FIDp== ID Date Data Source [id number] 06/14/2020 01:04:05 PM EDT [facility] XR THORACIC SPINE AP AND LATERALFINAL [...] rce(s) Supporting Document(s) ID Date Data Source [id number] 06/14/2020 12:11:04 PM EDT [facility] Value Range Interpretation Code Description Data Laura rce(s) Supporting Document(s) Ammonia [Moles/volume] in Plasma 33 umol/L 16-60 [facility] ID Date Data Source [id number] 06/14/2020 10:20:41 AM EDT [facility] Name Value Range Interpretation Code Description Data Laura rce(s) Supporting Document(s) Osmolality of Urine 510 mosm/kg 300-1000 [facility] ID Date Data Source [id number] [facility] Code Description Data Laura rce(s) Supporting Document(s) Sodium [Moles/volume] in Urine 32 mmol/L [facility] Confirmed ID Date Data Source [id number] 06/14/2020 04:34:20 AM EDT [facility] Value Range Interpretation Code Description Data Laura rce(s) Supporting Document(s) Leukocytes [#/volume] in Blood by Automated count 6.8 10*3/uL 4-10 [facility] Erythrocytes [#/volume] in Blood by Automated count 2.46 10*6/uL 4.6- 6.[address] [facility] Hemoglobin [Mass/volume] in Blood 8.3 g/dL 13.5-[address] [facility] Hematocrit [Volume Fraction] of Blood by Automated count 24.8 % 4 1-[address] [facility] Erythrocyte mean corpuscular volume [Entitic volume] b y Automated count 100.7 fL 80-[address] [facility] Erythrocyte mean corpuscular hemoglobin [Entitic mass] by Automated count 33.7 pg 27-[address] [facility] Erythrocyte mean corpuscular hemoglobin concentration [Mass/volume] by Automated count 33.5 [facility] width [Ratio] by Automated count 16.9 % 11.5-14.[address] [facility] Platelets [#/volume] in Blood by Automated count 52 10*3/uL 150-[address] [facility] Differential cell count method - Blood [facility] Neutrophils/100 leukocytes in Blood by Automated count 63 % [facility] Lymphocytes/100 leukocytes in Blood by Automated count 9 % [facility] Monocytes/100 leukocytes in Blood by Automated count 25 % [facility] Eosinophils/100 leukocytes in Blood by Automated count 2 % [facility] Basophils/100 leukocytes in Blood by Automated count 1 % [facility] Neutrophils [#/volume] in Blood by Automated count 4.32 10*3/uL 1.8-[address] [facility] Lymphocytes [#/volume] in Blood by Automated count 0.61 10*3/uL 1.2-[address] [facility] Monocytes [#/volume] in Blood by Automated count 1.71 10*3/uL 0-0.[address] [facility] Eosinophils [#/volume] in Blood by Automated count 0.16 10*3/uL 0-0.5 [facility] Basophils [#/volume] in Blood by Automated count 0.03 10*3/uL 0-0.2 [facility] Nucleated erythrocytes/100 leukocytes [Ratio] in Blood by Automated count 0 /100{WBCs} 0-0 [facility] ID Date Data Source [id number] 06/14/2020 04:55:[address] [facility] Name Value Range Interpretation Code Description Data Laura rce(s) Supporting Document(s) Phosphate [Mass/volume] in Serum or Plasma 2.7 mg/dL 2.5-4.5 [facility] ID Date Data Source [id number] 06/14/2020 04:55:[address] [facility] Name Value Range Interpretation Code Description Data Laura rce(s) Supporting Document(s) Bicarbonate [Moles/volume] in Serum 25 mmol/L 22-29 [facility] Chloride [Moles/volume] in Serum or Plasma 95 mmol/L 98-[address] [facility] Creatinine [Mass/volume] in Serum or Plasma 1.09 mg/dL 0.70-1.20 [facility] Glucose [Mass/volume] in Serum or Plasma 148 mg/dL 70-[address] [facility] Potassium [Moles/volume] in Serum or Plasma 3.3 mmol/L 3.4-5.[address] [facility] Sodium [Moles/volume] in Serum or Plasma 129 mmol/L 136-[address] [facility] Urea nitrogen [Mass/volume] in Serum or Plasma 23 mg/dL 6-[address] [facility] Anion gap 3 in Serum or Plasma 9 mmol/L 8-15 [facility] Osmolality of Serum or Plasma by calculation 274 mosm/kg 275-[address] [facility] Creatinine/Urea nitrogen [Mass Ratio] in Serum or Plasma 21 [facility] Calcium [Mass/volume] in Serum or Plasma 8.5 mg/dL 8.6-10.[address] [facility] Glomerular filtration rate/1.73 sq M pre dicted among non-blacks [Volume Rate/Area] in Serum or Plasma by Creatinine-based formula (MDRD) 72 mL/min/1.73m2 >60 [facility] Glomerular filtration rate/1.73 sq M pre dicted among blacks [Volume Rate/Area] in Serum or Plasma by Creatinine-based formula (MDRD) 84 mL/min/1.73m2 >60 [facility] ID Date Data Source [id number] 06/14/2020 04:55:44 AM EDT [facility] Name Value Range Interpretation Code Description Data Laura rce(s) Supporting Document(s) Magnesium [Mass/volume] in Serum or Plasma 2.1 mg/dL 1.6-2.6 [facility] ID Date Data Source [id number] 06/13/2020 03:12:01 PM EDT [facility] Name Value Range Interpretation Code Description Data Laura rce(s) Supporting Document(s) ED Provider Note [facility] LGYSQd1bKzOTWgFo45/EIIiyEWAzv9HhBUrvKJi6LPspLFQlH9ShLRB7hC1ePQN8JPnLZuOrWaYeLMGz m [file] AwMDAyMjQxNCAwMDAwMCBuDQowMDAwMDIyNjIwIDAw TTWlWV7JVbHuVJBeMtUyJQJwAEIvTCTksq2HDHMkFHOcOcK5ZEXvEUFiKRWqUVehWQSiIFI1UCK6RNQe FTIfNW5OSeRhZBWgUpEnYcEaSXPmCYNgcc5GZQIsZBRnNvl6MvEkAMNlFVLcDGizEIHqAWWjCNrrZZWk WVBbBC3IZvWiYVLlFmEcZuBpKBCqRMDcwd3GOAXnLW BsDpO2GLNxEIBuGJVwNTxpZNEpWLM7AiO3CDTvYFJpFT7CBiChVLLxAut6RbNpEUQmJFBtcs9CHZEcTN PeQfCiBKRsNYQgWAQbQGprYZSrELF2ZNR8ZAUcMAUfAE8CRqKyOJFtUty9QzupZWJrXVIqiv1RRPFmXR UrMYr3NtLrGHBvPLIxWXkxJFRmAOE9CXI5XLUqHEZr HL4JIuFgNHLpWLAsZNRoPLZaXIKddt1HHDHoHEG0VQY2BtNdEUPsGWYnVWpwGMLmSFYsDmggLCKiMNVe QT4RJbXkHOJwXPDpYJCsTGOcKOLkdn9YNWDsTMT9SlOyIFDxCLEoLMSlIYhuBMUdPTGzOAC8PJVgLANm VX4KPpGqKHQeETF5FJCrFRDqZVFryn6LNHXuLES6Am OcPQYcKQGdQRVxQYzuXZEmEZIeSsO1GBHbQXIpTU7ZCfUkPZAhRYV2FJApPJRmDQXpkf3PGSTiWZG3NZ EtOuBhDPTzFCRhGGhdHCPkSKZ1GKX4DJZkOCPeFE2VSvCmECRyYQS6STKoGCSmLISjsa9ASYDvGXB6Ox I1XzAqHXUpPZExUPgmPIJyBSN5IzvqWMEiJKSnSN7Q JnXoXPTkCWM5UJLdFTKsJTYpvt2IJMYxTWJ2IqIiPIFxFUGhSTKkNVrkQGXaQUQ3Yus0SVWsMIZbAM5Z UySiRYJfNCZ8SiQfXZRqABSgms0CBPXiSRI3AjT4IBCsCEVzGIYhJIkaUHJlXNM4ZsD8JBRtVYUdZG5Q DiKsMZGhBRj7PNYgAHDwAWWsye9SRHXtRUC8BwJ7Dm UhMBJiPKWoJByiALZlWQG7FNTiYAYgAQDfDM4DRcDcMRygIIBPEdf5PPjnU3f2XNP3MN5PY0Xoh3DeKN quQDCHNQrxEZ4ralCiVFDjEr7FB8mSIjw2KCQhQEEhAYO6UNA0C8R0JPN9IiO5HFKnBrv5YMMnCe0xBH ufWbLaOgBmDWE0AUtiJUGfTDHgAAH4ZQVaBaVwNhGx RdTyNM6XFf5JKiK1XYW1zZWqYp2JMOckTAPYJaVhXL8XTWi= ID Date Data Source [id number] 06/13/2020 10:29:26 AM EDT [facility] CT HEAD WITHOUT CONTRAST [id number] RESU LTInterpreted by:Livia Perez, MDCT HEAD WITHOUT [...] Name Value Range Interpretation Code Description Data [facility] rce(s) Supporting Document(s) ID Date Data Source [id number] 06/13/2020 05:14:[address] [facility] Name Value Range Interpretation Code Description Data [facility] rce(s) Supporting Document(s) Leukocytes [#/volume] in Blood by Automated count 7.4 10*3/uL 4-10 [facility] Erythrocytes [#/volume] in Blood by Automated count 2.44 10*6/uL 4.6- 6.1 [facility] Hemoglobin [Mass/volume] in Blood 8.3 g/dL 13.5-[address] [facility] Hematocrit [Volume Fraction] of Blood by Automated count 24.7 % 4 1-[address] [facility] Erythrocyte mean corpuscular volume [Entitic volume] b y Automated count 101.4 fL 80-[address] [facility] Erythrocyte mean corpuscular hemoglobin [Entitic mass] by Automated count 33.9 pg 27-[address] [facility] Erythrocyte mean corpuscular hemoglobin concentration [Mass/volume] by Automated count 33.5 g/dL 32.0-[facility] width [Ratio] by Automated count 17.1 % 11.5-14.[address] [facility] Platelets [#/volume] in Blood by Automated count 51 10*3/uL 150-[address] [facility] Differential cell count method - Blood [facility] Neutrophils/100 leukocytes in Blood by Automated count 68 % [facility] Lymphocytes/100 leukocytes in Blood by Automated count 6 % [facility] Monocytes/100 leukocytes in Blood by Automated count 24 % [facility] Eosinophils/100 leukocytes in Blood by Automated count 2 % [facility] Basophils/100 leukocytes in Blood by Automated count 0 % [facility] Neutrophils [#/volume] in Blood by Automated count 5.02 10*3/uL 1.8-[address] [facility] Lymphocytes [#/volume] in Blood by Automated count 0.46 10*3/uL 1.2-[address] [facility] Monocytes [#/volume] in Blood by Automated count 1.77 10*3/uL 0-0.[address] [facility] Eosinophils [#/volume] in Blood by Automated count 0.11 10*3/uL 0-0.5 [facility] Basophils [#/volume] in Blood by Automated count 0.02 10*3/uL 0-0.2 [facility] Nucleated erythrocytes/100 leukocytes [Ratio] in Blood by Automated count 0 /100{WBCs} 0-0 [facility] ID Date Data Source [id number] 06/13/2020 05:26:25 AM T [facility] Name Value Range Interpretation Code Description Data Laura rce(s) Supporting Document(s) Bicarbonate [Moles/volume] in Serum 25 mmol/L 22-29 [facility] Chloride [Moles/volume] in Serum or Plasma 97 mmol/L 98-[address] [facility] Creatinine [Mass/volume] in Serum or Plasma 1.30 mg/dL 0.70-1.[address] [facility] Glucose [Mass/volume] in Serum or Plasma 149 mg/dL 70-[address] [facility] Potassium [Moles/volume] in Serum or Plasma 3.5 mmol/L 3.4-5.1 [facility] Sodium [Moles/volume] in Serum or Plasma 134 mmol/L 136-[address] [facility] Urea nitrogen [Mass/volume] in Serum or Plasma 28 mg/dL 6-[address] [facility] Anion gap 3 in Serum or Plasma 12 mmol/L 8-15 [facility] Osmolality of Serum or Plasma by calculation 286 mosm/kg 275-300 [facility] Creatinine/Urea nitrogen [Mass Ratio] in Serum or Plasma 22 [facility] Calcium [Mass/volume] in Serum or Plasma 8.9 mg/dL 8.6-10.0 [facility] Glomerular filtration rate/1.73 sq M pre dicted among non-blacks [Volume Rate/Area] in Serum or Plasma by Creatinine-based formula (MDRD) 59 mL/min/1.73m2 >[address] [facility] Glomerular filtration rate/1.73 sq M pre dicted among blacks [Volume Rate/Area] in Serum or Plasma by Creatinine-based formula (MDRD) 68 mL/min/1.73m2 >60 [facility] ID Date Data Source [id number] 06/13/2020 05:26:[address] [facility] Name Value Range Interpretation Code Description Data Laura rce(s) Supporting Document(s) Magnesium [Mass/volume] in Serum or Plasma 2.5 mg/dL 1.6-2.6 [facility] ID Date Data Source [id number] 06/13/2020 05:26:[address] [facility] Name Value Range Interpretation Code Description Data Laura rce(s) Supporting Document(s) Phosphate [Mass/volume] in Serum or Plasma 2.9 mg/dL 2.5-4.5 [facility] ID Date Data Source [id number] 06/12/2020 08:59:14 PM [facility] Value Range Interpretation Code Description Data Laura rce(s) Supporting Document(s) Bicarbonate [Moles/volume] in Serum 27 mmol/L 22-29 [facility] Chloride [Moles/volume] in Serum or Plasma 95 mmol/L 98-[address] [facility] Creatinine [Mass/volume] in Serum or Plasma 1.43 mg/dL 0.70-1.[address] [facility] Glucose [Mass/volume] in Serum or Plasma 237 mg/dL 70-[address] [facility] Potassium [Moles/volume] in Serum or Plasma 3.1 mmol/L 3.4-5.[address] [facility] Sodium [Moles/volume] in Serum or Plasma 132 mmol/L 136-[address] [facility] Urea nitrogen [Mass/volume] in Serum or Plasma 31 mg/dL 6-[address] [facility] Anion gap 3 in Serum or Plasma 10 mmol/L 8-15 [facility] Osmolality of Serum or Plasma by calculation 288 mosm/kg 275-300 [facility] Creatinine/Urea nitrogen [Mass Ratio] in Serum or Plasma 22 [facility] Calcium [Mass/volume] in Serum or Plasma 8.3 mg/dL 8.6-10.[address] [facility] Glomerular filtration rate/1.73 sq M pre dicted among non-blacks [Volume Rate/Area] in Serum or Plasma by Creatinine-based formula (MDRD) 52 mL/min/1.73m2 >[address] [facility] Glomerular filtration rate/1.73 sq M pre dicted among blacks [Volume Rate/Area] in Serum or Plasma by Creatinine-based formula (MDRD) 60 mL/min/1.73m2 >[address] [facility] ID Date Data Source [id number] 06/12/2020 06:33:16 PM EDT [facility] Name Value Range Interpretation Code Description Data Laura rce(s) Supporting Document(s) History and Physical [facility] NULGPn7xElJNOpEe43/WTUcjXGZbk7JhBFoaSLs3SHlnETNwI3GzQAL8wO7xWLG6KYgQWfPlBjGiNVFo [facility] [file] ICAgICAgICAgICAgICAgICAgICAgICAgICAgICAgICAgICAgICAgICAgICAgICAgICAgICAgICAgICAg ZJVmUBMkIVKoRAKrAAWzKBPfOCDbRBAvBY2PAFPrNJSzCRTaUKJuPXYiKNTdWPFgQTDdMQOvPLVxIQFl ICAgICAgICAgICAgICAgICAgICAgICAgICAgICAgIC PgQKBvOFCtBYMsYAJsHGHzMXWuCVNfVCOfYFOjCPDeDDNfAA9OTRYrZXLqYIFgOSNvXTMhHYHcRLVpID AgICAgICAgICAgICAgICAgICAgICAgICAgICAgICAgICAgICAgICAgICAgICAgICAgICAgICAgICAgIC MqSNMgCNEkNTDeKVWxLVRwKZ0YKVRkLMYeWGEzKSIb ICAgICAgICAgICAgICAgICAgICAgICAgICAgICAgICAgICAgICAgICAgICAgICAgICAgICAgICAgICAg RWXgKQIeLANxDORiOPMuDHPhBXCpSDBwXUCpTX0DJBAlUCSlMOMwPGXnKMNdEOFwUACpNONiJWAwHMWh ICAgICAgICAgICAgICAgICAgICAgICAgICAgICAgIC OmJJWxSWGaPJVxPFCjDQGbTOTyBTYbXSPxVARqNGCuKDDzXRZyUJ6RUNDaRZJjRHGiJXXqZSXoRVRaOB AgICAgICAgICAgICAgICAgICAgICAgICAgICAgICAgICAgICAgICAgICAgICAgICAgICAgICAgICAgIC NqJABlOGNuMYJtXJRjAALuLZRyDQ2QODUoQEYyJVIf ICAgICAgICAgICAgICAgICAgICAgICAgICAgICAgICAgICAgICAgICAgICAgICAgICAgICAgICAgICAg JNFzFSQvMPGbTQNjWUAoUSWiJMIhWKCeFUAdIWWkZH2ACLHdLPSiUWTxHWFtDLUzDEWzAKBcPFFgIJWs ICAgICAgICAgICAgICAgICAgICAgICAgICAgICAgIC GcKKIwRTHnTAVaRTRpSWKjOFCrQSKlLDAjCKPpVDVxIUVxZMQpEVEyJS8SIVFxZLLfIPXlSGUrNLHtXV AgICAgICAgICAgICAgICAgICAgICAgICAgICAgICAgICAgICAgICAgICAgICAgICAgICAgICAgICAgIC TuSCWxXNPuBIOkTIGlKJXhJOGuUSLvDO4JEQXiQVHr ICAgICAgICAgICAgICAgICAgICAgICAgICAgICAgICAgICAgICAgICAgICAgICAgICAgICAgICAgICAg ZIYuUJIpMIQhNYHwWIReTBIbLIRxDPKdAWKmTEXvITMxHG2NKD24jRZmq2Q4XXVwGS8aeif/Tv4UJUnu isQclXQbUO2LDbPiBF9yxs1JCeEkYM7poi5GOKxTFj AwV3H3xVJkSWIeEKTUYuRjQ11sNQbdYu64OJvrUDVuYqBqDUv6Qr0WDjVwX0nnOGHfBrL7NBJoAwG0IO PuUlC8SCBhRxClQOJsEZBuFJFoCXEYITK1LJXaYxPwWHneBH7Fe9TjuLO1HYp+Zn2MAW1cc8XrANemJV TaHA3lgm8MULgLCsDrU3UgeuE9UWM8MACjRl0JDORv XABtpBWmGFYvBGSBUnViA7LhlS72JPXISj6+CQsxusMbArcGMjP1RIVje2YmGAt7WA2TVCFvCKm9dQMc OKEOFGN9PQGjOU4dDaRHgRHdXELoBAPWMJNsrYE8YdFoUwHrSxIhKWq1EJMhIR3kKIefDV2BOCF3GDre SJRzLVLrG7uAEkThUSCfEnPddZxyXH3KRhKiD4Efvh VudCAzOCAwIFINCj4+OAnlguLiZalOTeQxGOXhm6WwLQu5UQ7XVZApYRbwJC6NROUrfA9uREryDC6WEw PgWiQtDHZNGiTiD58izANkSUw7F3IqEsWlDZYjJkbrAFQuZUwqDgDcOQYgRjLqMPirJZ5+ID4+DQogIC 6HORmsuyYgCYAmSr8IJYLqYOYqXC6bTRRfFZRmM2H9 lJfrVEZWHuOhD2vntqneKR9eZJPzE696sLwmnmYxCQW5LFKuAu3GMMUvHFH6WLJntYUvMeqjWXIYSKhy KT2UwWSiTLW6hO2rIMlgILHeQNYfK1iWTyZmtHwaGW46bBsdhbXadEBlNId+Uw0EOX6lk6UoNBz8tyXm MSeeSWSwWCbnYYZuNDApXGFaFRN9RGW3KLZGEtUxJA SsQAGdMMtdHNCbIQWfno7VFNEdPSTgFOB1TPGoUWUlDYVrKBruCSUfCEE9SQUqJVTfZWMzPY3ZGiJtSG BeFUMmYJwoFVFwNEWotw6QBVZfVGYzUcK0AcLiTCXbUKNoEKcjZUQuBUNuCpv3RBUjXPWcER0FZnMeWS ApHVz7ZiCfPZFcUHQhox3DBVFoNLOyBtB9CkFmZDGt QYHrCSqyHTSgJNVtQbY2CWIuBKNfMM5MCjWdXVLdRAF1LiCvFLBzMPGjbx6EXHDqBQAvTJW6DYBvLUTl RVYhJVjoKISqBVD4ByM3HDWeRVYbAX8JLzToUOQhTDt2GYShKGZbWLBoaa8FJUWxUXNfDQUvKMCyAADh XTHtQBtoTHGgRNR6COThPPDmTNWwXA5MQoCySRQzII qxQPrsOTQcJJXbpc8YKAPxNYQmKBQuZaIvUMHoRVXqLVatFBDyCHVtYhV7RVOvRSWvUX7ZHqVmLTMmKe ZhZHktMFFkNGDdmx2LZFBeYYTbZUR6NqOaTUVgXCLtZLxzZGAaPTDcJCH5DOZcVEEdUB9AHgLmUAYzRg X3RVYyRHHaIEWmyu1IPYSdLQUxXwxnVQOxAKPvCWSo SZntUMOdKDZcHSD1YIPhBLAlZI4PDuHdUOPpTqMsQRMiEBGyDTSdqc6WEXFvCYUjKXV5CKGvHYHeEFNv PEzmPDBzVVH3SnYqATWyGLCjMF9ZDvBzEPAlWhL4ZzJhVDNwNBMxgb2ZEJRhQUXbRMyhBGQxLLYlGULm TIkvMMSqPXR3RRR7NILvEHToHE5AFqOuDSNlGhExHT huIPTjLBCufj1GRBVrRCSuZfF5OyAfGZWbVAPkFEgdYYOqBOH2RvTsZCJzZCLyYG6TWzMqIHBuXia4Ur MtNSQiPYNxlg7AXMLhGMOlLzv5YUIlWXYsYVKoRBheUERvXJO1HDNtPIBdQQZqFS4BJyUtINQsFzg3WO LyENQcUFXenp8UDRXrGHCqSZy3AmRuSNIaTNZqBJui XIYjKJEcDAHqLASjIRSuIA1GHdAvOWXnZWKcJkRcZRJqAZQkbj0LgIEvsHhslc4NDNrGMq8PnYxkZMGf UAacCz8ptRZ1DIVhTLWLQt6ZngMnYPQmCOPYBAkhFYXkQHD8Z8F6TBEhQ9A3BUTiHhAzSqU2LLUkNGYv VGPfALLcQhN4UdM5HBQ8TAZwULBmBKJqAnStFmOeJs VmJRFzLAC6GFK+RG0rXBd+Fi6Na2RxzeD7isTnEIa5CQIlXH2DTGWDH6IQYn== ID Date Data Source [id number] 06/17/2020 01:38:34 PM EDT [facility] Service Cmnt XXX-Imp : NoneGram Stn XXX : 2+WBC'S Seen.No organisms seenSpecimen concentrated prior to staining.Microorganism XXX Cult : No growth 5 days Name Value Range Interpretation Code Description Data Laura rce(s) Supporting Document(s) ID Date Data Source [id number] 06/12/2020 03:52:30 PM EDT [facility] Name Value Range Interpretation Code Description Data Laura rce(s) Supporting Document(s) Albumin [Mass/volume] in Body fluid 0.8 g/dL [facility] (NOTE)The performance characteristics of this test for this specimen typewere determined by the Department of Pathology at [facility] and approved by the [facility] Department of Health. It has notbeen cleared by the FDA. ID Date Data Source [id number] 06/12/2020 03:52:30 PM EDT [facility] Name Value Range Interpretation Code Description Data Laura rce(s) Supporting Document(s) Triglyceride [Mass/volume] in Body fluid 26 mg/dL [facility] (NOTE)The performance characteristics of this test for this specimen typewere determined by the Department of Pathology at [facility] and approved by the [facility] Department of Health. It has notbeen cleared by the FDA. ID Date Data Source [id number] 06/12/2020 03:52:30 PM EDT [facility] Value Range Interpretation Code Description Data Laura rce(s) Supporting Document(s) Protein [Mass/volume] in Body fluid 1.8 g/dL [facility] (NOTE)The performance characteristics of this test for this specimen type were determined by the Department of Pathology at [facility] and approved by the [facility] Department of Health. It has not been cleared by the FDA. ID Date Data Source [id number] 06/12/2020 05:32:47 PM EDT [facility] Value Range Interpretation Code Description Data Laura rce(s) Supporting Document(s) Color of Body fluid [facility] Appearance of Body fluid [facility] Erythrocytes [#/volume] in Body fluid by Manual count 9 /uL [address] [facility] Cell count panel - Body fluid 57 /uL <200 [facility] Microscopic observation [Identifier] in Body fluid by Other stain [facility] Cell count and Differential panel - Body fluid [facility] Neutrophils/100 leukocytes in Body fluid by Manual count 20 % < 25 [facility] Monocytes+Macrophages/100 leukocytes in Body fluid by Manual count 19 % [facility] Lymphocytes/100 leukocytes in Body fluid by Manual count 49 % [facility] Other cells [#] in Body fluid by Manual count 12 % [facility] ID Date Data Source [id number] 06/12/2020 01:26:02 PM EDT [facility] Value Range Interpretation Code Description Data Laura rce(s) Supporting Document(s) EKG [facility] ROEXWo5yOeTJIlTta9YeHiTbQXOpZP9twzk5R6A4iRTqR3WhcPWjq2lmV2SbO5PjYIQiTBJANW5HlSRr jb2 [file] j/ZsaM+G9my3/2bbx4sR6q5J80pN+Saravanan+av8+7j1wv xFRq6WXU7vXuBw5S/4N/o1NjbqlopvV+ZXP5vf/IdWZ0k34jL32omwLqz5Tv9vB66vjlOM/P3A+Qeui/ pi/sr8zk+l68tero/Xax5Ug1/dz4zuph+grcx6z6K4akQX+h7LkWWJUnM1M0K/zsM5od4qr93r8T1vYE L34MmAlLX0wNtpSbgn2W2UD0/5zvN/3dhr5ni/v+aq 92XzaN9/qa/leuSjr/zolrMG+k/B8RRaS42tmiWCD18P2O+ca/4q/+bUN+7t952Ooye5ieaix84d34+q HDc+OX818+4NtwmWth10h+NZy/vge1GQf11ZL/64J82lOBeLFQ/2RbNxrgjl68FE+7vY+d3fN89yJ9u6 VWWD3+B3+JGvZsAfNz/M+/u2mkSMkdp9mJ571F4i9j Kv1GC4Cvb/1wO/wC/wK/fFR7ggO/jx/F14/p72iuruals9KAJ+Cf+Ef8GP+i7UN/ZTzaAgkCM1RC7J/8 4/342ba3dIp1fd1i7+hz/gx/NoD/jx+165nbVRMb6e7QpFoWDFZ/7c+vpz87M/V0/6c+c3/Ln62Z+rnz 544JfC5+G/419/7vjXnzv+9eeO9/0Z8E/4J/wL/jte 8IDPod4V2yrcqtxY0Jp6594Fx58dmqDs76uhlYe+8c192wpKtnFG7/lBGkq7of+9ZfgH/AP+Cf+Ef8G/ 4N+47v6O+tftS74o+AX+W972Zxfr0kM2Lu/Bj/xpmy04d+C6A/4B/4R/wn/ni3ANiDYxCc++v4vd+Wc3 /H8L33uL/jv/9Ocar15y9dQ48wjwgY+kn2f56GQIYh h5gSKwQaYBQ8489EPRYvo9dWi+RqFMB3PP/45/UtbREx3N4G1m/ltEax07oaCXC/6Af8A/4J/wT/gX/A v+Df+dj/J343AcO/frfwRubN3K2Nw/mGWD3+DFyKK7oUnt62X5dOo10Ck+5Gcjb8Sp5ygBjNg8vXv8ig AtX/+248227p2QMwUU+NGex31/dFYNv/1k1Jw7Z08o LcN/3x+dBcPfcyI/p6SrTApVRgeM/gX/hv/OP/tV6bpEusK+0Oed3/F06oo62KLFFG8H75Sac/nRf/F+ 0OcdL/gcuM8J/4R/wb/g3/Cjvpi/8oXfN/PESnerduNKdWfZ7bNSuy4Mu4pr0qiy4VekfA9gGB3Uqvxx dm4sYiYrRjnIpodBTl7M532D+n9hi069Iq1+yz3Pvv OxZ+5uiKddco9M2xkf1A57g0RF/n7LDr/DH/AH/AP+Af+p713w+y0v+Bf8G+fZ3/Syww53GP/Fv67bwJ ElT53QKMU3cL9rjok5umuN/9wokpy7707bja+7aMh14z/u/AEQ2FaoF1w8m/1D44n7m+2oB2muur6Bcm +jkJufQ+71EJPrk41x4b6iEz1T/oB2JAF7uB/ulnEW 6P1g3Mu2cdN0XyLKvvc/1Yiuy2z0L9+n/o6ML44vkVxpJ2/1qW+mnR00lr6824k+6wc0695BM5Su+/yN 1Fe7yt/0zBp9G6x2n/k2eNk5WD1/5ydD7/dq5Z1lsX49M2X4stF20yaLG39h0DzzL9+fZfvlq4z4Pr7D it9XUV+56vhg6W0HgkIcrC+J5bo3sH2lI2r2f89p+z d/UIY/4A/4B/brZBht47Y4NkH/4F/wb/h78Q45xb7vxOno+y0L/Ke+nn9/5mrD7Qx5SJ1J5+EP+AP+Af +A/2T0I3VlnvTRD/wL/g3/sm7yu80mz//Yt5wWeCUyfVfJ+y0r/Ar/qW/+I/RQS04mv0DZ631mq1/mvs 4z092t+a82fosfX/BP+Sr1r876jdNbp/u94ay0nvm9 i5BnT3wKf48iCWJgB+XfnHyV+qEia53Vgp/+nXRzucJv7U/5heqIU2+95Qn/yVeZK46++pbh3/Dv6z/6 6luGX+AX+BX+U9+ro19A0juGWTpxP86+OOtqR+6ghTrLpfdD5dioshh+Af+Af8J/6lvnXDj/gn/Dv6// 2Vy9k5Is9h9E4hf6wlv6WT+kJs7MrkuM1m4s0vii+H 0Xft+L25bd3916agaD43/bfo6+trM11TH9o3Pbvm7irLdhn8q/ZA8XyCU32GoFT/362VE947EGtwu+h9 7m8rkVNxh9sbCpvhHf1WtqIf9M/4J/w7+//sT80a1Pf/DiZP9DINAo6Xjmz0Jjg5/hD/gD/gH/gH/CP+ Ff8C/4N/yor6C+gvrm9+3gRO7IC+TJiNU7CeZYIM8L aBK3EzLRQC9UmZA3LhIYKW5DtJG4VbUA5/F8iFasD/RZ+Vdj2Wp5uIN4IE8C2+F3+AP+gH/Af8cLI/XV W/7qqKHv+oV/d1acwd5V+irXv6W+ynLqq/wq4Yi3hApnFGixubmn/Iq/C4sOdQ34jtAJ/G4xPNNnT+e5 98AYhDRAe6/h0mE0yhsa6/L22iQwp2/eGKmvqizwC/ z6zT/Sk56ahgMd/A6/f/DBMC8Uc30vhag87+dIfVXl+dUJw6/eGKmvnvSf+lZ5w7+wastewater supervisor/EPX48bDY91jt [file] w7dY462C826mMAn5geV/3227cPv/ssn539+Vd+dn+B7599+flXn3/0qp4kdx0y52slz9/47EIjA57/+P zd2z98/eHti+/e3n/1ylfLs71/8wbcTy7e12ojwwt4 q/dv796++vqD/9O71y+/+pwSZp0vf549/cA173g4Fv/7+SXJ3943/snh4s7dTe99L/joIj3iUam7jlzy /fr9Z2//+Fdf05zc7I73G8g1/+mv/8rP7m/g/bN/+s37r94+/boKo504nV6coh8/+Jv7H96+/ofXL/Ml tvl2rU/U/u7nl/UFRsO9k25+/gsi0wf3ze745K/evZ 2wgdisZ0J6824++yv/eHxf935++ucf/+0Pf/nTD//69i//9fbdH/74x+//8pcfvv/e11032w0Lk/jhj2 ///D/a+ue//gx0A53wrS+6Ywi2l0124Y/+39+vVtc6G8pf/26r37630j4Dz99H++A+/39s2Hj+ s3/w/HV7nV5A8//u5J8vs1hWq91if1Ldns82sVd/sN v0S2Hhnrz+l2ta14pRnYzr4ZZj/82w+c8krX41W9ObG/+Pzbj19/18o9W13+/n8xMd60Cs/Jcv/J/1ZJ /+r+5yzfKnL+q2+Yrybzq5+UtB/sLjFtJFj0BvleFr/+x9+//eX7//jhJ1d/haIm8yDl+0d/4otybbHX 4//86gd+8+HtDz/+xw9/+T//3dRs7xdVc0g7hWuoVY 4/v/ph//jh27d//c/Xs//hzz/+/PJ+/t3PLh+XeNg/tvloV850DR/2niI0WPedv+T2n2p5J/rplJ7//p NPp541d/1CyVojs/Hiotvde232+MXHt+//7w///t+bz/Ushb4Xt70/14e4cY0KL7N70j3/+ee//dmvz3 v48vs//uT97p/QT7//z99//+9/+P7Hn/3/KWmTP/z4 8/9/WtS6/vgv//1/xtD89Sm//+mTd+635U7Dxu/48+8/UZaUr+qJ+Ac3//jD7//Xj3/4/cs6Hta1l6ww n//WY43Eb//3H36X4x6/dDqSI728Ky+/n8ZcLu5W/f3//SQzwu81156qpptPw2t5oga4d5FFO+rb+5fQ 0kg9wc1+nqW/civ3uyt//vDZ+t0gCS8dE5Sm20oZY9 31rq/kmyw25o01RZ0w/H+4C5XPJrWhDAR8jdIihMzmiuCbZntDKYgkIBYhVjn3GQ4FpRUzUHHiL0H1SM Onfe4cNBMeRLWkhANrCzWiRCNZSG7BxAAiAS1FSIm6ZPQzOEJyYgEdOWIqbbY8HDLaAQIzRYLcU2Reix VudCAyIDAgUj4+DS8ri0AzFnLnISMuXcp5XT4XkOCu ZJ1FnGHybZ8dpkFeS054scCjGGRyXqqij8VkSNymXUEKDO2AOUM5OXG5TAAgWz7+IM4qy9AyMbBnNAIv Yuq0RO7JfRUwd6UsML0VH8QdXYBrTYTVWCH1o6CyUAWxuqqlfibiR7StNQP6fB0yOWM8URPcJFrmSUJi AELgJYVnUkPhPOhtFJVlZULyHLMwDWYxLYh3oGAaHS 4XP0NnDATeHURLHUWhotUsXy5tSSNVH6hIABGvWHTSRCXaVlV0MTz3AehfV7L1BuejX5JlNW4HW9JxOZ DqFELFVRRgbdWaVH7RslDixL5dUWfWWXVZZFzIBJtaLiW4j96groQZNCUuCAHiCKzgPUFtABRqRDLeCG JvRHKeQOHmHVYhHQ0AV9RuYONdEUFJFAK1n8OkLXZo eayncxihBr9drnKbNpw+JfnoFPFtq0VwZIznW6D4eBDaZ2CdF5DjPK3YiHJfULyrAMNyMSPuEBIdY667 bnQgMT4+FX4sq8PhGysxCQMQIBDtVFLfKXFpXBT1NdGdFBBoOTDsCIAdZbG1YhKvLwMZJBAgOGB2TfG7 OMSoWUEmQCKhBCusQEThKTIjTAMfIZVaDWFwQL8dLp GrFNLsSjGvExyeYFDaTWZuyiIWPSKeQUKnVAXmETS3KYPfFFYlCSavRSMoYAEgDOB1FUNpGAWaYZ1bTi UkYECkKYVcBalnMFQfTTDvdcWEQLEaCEPzHUJ4PwJfESLiMQLjVLocYMSgKNWwEhd7UQDhFWKpAK3dZl TbJBXxYWC0XPzsCHBbGXVkxpDRTJCtOTMoIWMkBlQe GPJpRPPwVDsmKOGwFHSiLsPmHLQaNAZuNV6rUfKgEXZmDMR0JTZkAEIhCEHlqzJMGZWbOIMpKCq9RZMu NTKzEDGyOLqdSCYgTXQsQSB8CCMmDNPfTQ0uXmYcMUFmNHUzHVErMHRiJQPmjyAOMBGkIAOmSJR3JILe PQUuORSpAOxnSQXcALHyIue9VWRoRLPaXU2wSsFgYJ ZcMVS3FFPdJARmAEOupuNZXCDjOCN1MixhIVIlCXNnZZJdSFbiMJNmPVByPgM3VTJjESIxPN7oQdOdAC PoDJO2ErNoDUQoXKDbckHEBDSyHHKhCWR2KyXfUCEpPNGjXXslSJJdVSUqUNQrDQH6EDT1OTIlHlIfRF gzNCNAMUcLB2HvyaAsZsAEB0ajHt7aLhHuJJHYG8Qe z4KqWBBkTMGPQe5+GsJ7BIK9iKKpHql3ZvItCIszGHBDIe== ID Date Data Source [id number] 06/13/2020 05:11:00 PM EDT [facility] CYTOPATHOLOGY REPORTName: ADDISON ZUÑIGAMRN: [id number] Number: [id number] Date: 06/12/2020 13:22Received Date: 06/12/2020 15:41Physician(s): JOVANA CASTILLO MD DESAI,FATMATA Hernandez,YORDY Copy To:SEKOU HENRY MDSpecimen(s) ReceivedA: ASCITIC FLUIDClinical [...] developed and their performance characteristics determined by [facility] Pathololgy department. They have not been cleared or approved by [place] Food and Drug Administration. The FDA has determined that suchclearance or approval is not necessary. Name Value Range Interpretation Code Description Data Laura e(s) Supporting Document(s) ID Date Data Source [id number] 06/12/2020 10:47:34 AM EDT [facility] MR THORACIC SPINE WITHOUT CONTRAST [id number] FINAL RESULTInterpreted by:Buster Kathleen MDEXAMINATION: MR THORACIC SPINE WITHOUT IV CONTRAST [id number] INDICATION: T11 burst fx; eval for posterior [...] rce(s) Supporting Document(s) ID Date Data Source [id number] 06/12/2020 10:32:21 AM EDT [facility] XR CHEST FRONTAL ONLY [id number] RESULTI nterpreted by:Kina Biggs MDINDICATION: Evaluate fluid [...] rce(s) Supporting Document(s) ID Date Data Source [id number] 06/12/2020 02:18:[address] [facility] Name Value Range Interpretation Code Description Data Laura rce(s) Supporting Document(s) Hepatitis C virus Ab [Presence] in Serum or Plasma by Immuno assay Non Reactive A [facility] Past or current Hepatitis C infection. Alphonso dahl forwarded to reference laboratory for quantitative HCV RNA testing. ID Date Data Source [id number] 06/12/2020 01:17:[address] [facility] Name Value Range Interpretation Code Description Data Laura rce(s) Supporting Document(s) Albumin [Mass/volume] in Serum or Plasma by Bromocresol green (BCG) dye binding method 2.8 g/[facility] Bil[facility].total [Mass/volume] in Serum or Plasma 5.1 mg/dL <1.[address] [facility] Calcium [Mass/volume] in Serum or Plasma 8.3 mg/dL 8.6-10.[address] [facility] Chloride [Moles/volume] in Serum or Plasma 95 mmol/L 98-[address] [facility] Creatinine [Mass/volume] in Serum or Plasma 1.63 mg/dL 0.70-1.[address] [facility] Icteric Glucose [Mass/volume] in Serum or Plasma 157 mg/dL 70-[address] [facility] Alkaline phosphatase [Enzymatic activity/volume] in Serum or Plasma 127 U/L 40-129 [facility] Potassium [Moles/volume] in Serum or Plasma 2.9 mmol/L 3.4-5.[address] [facility] Results called to and read back by [facility] AT 1317 BY 4384 Protein [Mass/volume] in Serum or Plasma 6.8 g/dL 6.4-8.3 [facility] Sodium [Moles/volume] in Serum or Plasma 132 mmol/L 136-[address] [facility] Aspartate aminotransferase [Enzymatic activity/volume] in Serum or Plasma 33 U/L <40 [facility] Urea nitrogen [Mass/volume] in Serum or Plasma 34 mg/dL 6-[address] [facility] Osmolality of Serum or Plasma by calculation 285 mosm/kg 275-300 [facility] Creatinine/Urea nitrogen [Mass Ratio] in Serum or Plasma 21 [facility] Bicarbonate [Moles/volume] in Serum 28 mmol/L 22-29 [facility] Alanine aminotransferase [Enzymatic activity/volume] in Seru m or Plasma 25 U/L <41 [facility] Anion gap 3 in Serum or Plasma 9 mmol/L 8-15 [facility] Glomerular filtration rate/1.73 sq M pre dicted among non-blacks [Volume Rate/Area] in Serum or Plasma by Creatinine-based formula (MDRD) 45 mL/min/1.73m2 >[address] [facility] Glomerular filtration rate/1.73 sq M pre dicted among blacks [Volume Rate/Area] in Serum or Plasma by Creatinine-based formula (MDRD) 52 mL/min/1.73m2 >[address] [facility] ID Date Data Source [id number] 06/12/2020 01:17:53 PM EDT [facility] Name Value Range Interpretation Code Description Data Laura rce(s) Supporting Document(s) Magnesium [Mass/volume] in Serum or Plasma 1.4 mg/dL 1.6-2.[address] [facility] ID Date Data Source [id number] 06/12/2020 11:06:[address] [facility] Name Value Range Interpretation Code Description Data Laura rce(s) Supporting Document(s) Hemoglobin A1c/Hemoglobin.total in Blood by HPLC 5.8 % 4.0-6.0 [facility] Confirmed(NOTE)<5.7% Average risk of diabetes(ADA)5.7-6.4% Increased risk of diabetes(ADA)>/= 6.5% Diagnostic for diabetes(ADA) Glucose mean value [Mass/volume] in Blood Estimated fr om glycated hemoglobin 118 mg/dL <126 [facility] Confirmed ID Date Data Source [id number] 06/12/2020 10:43:[address] [facility] Name Value Range Interpretation Code Description Data Laura rce(s) Supporting Document(s) Ammonia [Moles/volume] in Plasma 134 umol/L 16-[address] [facility] ID Date Data Source [id number] 06/12/2020 09:45:[address] [facility] CT CERVICAL SPINE WITHOUT CONTRAST [id number] FINAL RESULTInterpreted by:Buster Kathleen MDEXAMINATION: CT CERVICAL SPINE WITHOUT CONTRAST 88795, CT LUMBAR SPINE WITHOUT CONTRAST 29144, CT THORACIC SPINE WITHOUT CONTRAST [id number] INDICATION: Thoracic spine fx; evaluate for proximal [...] rce(s) Supporting Document(s) ID Date Data Source [id number] 06/12/2020 09:45:11 AM EDT [facility] CT LUMBAR SPINE WITHOUT CONTRAST [id number] NAL RESULTInterpreted by:Buster Kathleen MDEXAMINATION: CT CERVICAL SPINE WITHOUT CONTRAST [address]30, CT LUMBAR SPINE WITHOUT CONTRAST 89908, CT THORACIC SPINE WITHOUT CONTRAST [id number] INDICATION: Thoracic spine fx; evaluate for proximal [...] rce(s) Supporting Document(s) ID Date Data Source [id number] 06/12/2020 09:45:[address] [facility] CT THORACIC SPINE WITHOUT CONTRAST [id number] FINAL RESULTInterpreted by:Buster Kathleen MDEXAMINATION: CT CERVICAL SPINE WITHOUT CONTRAST [id number], CT LUMBAR SPINE WITHOUT CONTRAST 78685, CT THORACIC SPINE WITHOUT CONTRAST [id number] INDICATION: Thoracic spine fx; evaluate for proximal [...] rce(s) Supporting Document(s) ID Date Data Source [id number] 06/12/2020 09:41:25 AM EDT [facility] Name Value Range Interpretation Code Description Data [facility] rce(s) Supporting Document(s) [facility] HMBIJj7iDwBCSsVy28/VAVwgRQFga3HeHCniKCn0EBlhCHWdP2FjOVG1dK2gUSL3JPdUZoGzTdCgTRDw lbm [file] AgICAgICAgICAgICAgICAgICAgICAgICAgICAgICAgICAgICAgICAgICAgICAgICAgICAgICAgICAgIC AgICAgICAgICAgICAgICAgICAgICAgICAgICAgICAg ICAgICAgICANCiAgICAgICAgICAgICAgICAgICAgICAgICAgICAgICAgICAgICAgICAgICAgICAgICAg ICAgICAgICAgICAgICAgICAgICAgICAgICAgICAgICAgICAgICAgICAgICAgICAgICANCiAgICAgICAg ICAgICAgICAgICAgICAgICAgICAgICAgICAgICAgIC AgICAgICAgICAgICAgICAgICAgICAgICAgICAgICAgICAgICAgICAgICAgICAgICAgICAgICAgICAgIC ANCiAgICAgICAgICAgICAgICAgICAgICAgICAgICAgICAgICAgICAgICAgICAgICAgICAgICAgICAgIC AgICAgICAgICAgICAgICAgICAgICAgICAgICAgICAg ICAgICAgICAgICANCiAgICAgICAgICAgICAgICAgICAgICAgICAgICAgICAgICAgICAgICAgICAgICAg ICAgICAgICAgICAgICAgICAgICAgICAgICAgICAgICAgICAgICAgICAgICAgICAgICAgICANCiAgICAg ICAgICAgICAgICAgICAgICAgICAgICAgICAgICAgIC AgICAgICAgICAgICAgICAgICAgICAgICAgICAgICAgICAgICAgICAgICAgICAgICAgICAgICAgICAgIC AgICANCiAgICAgICAgICAgICAgICAgICAgICAgICAgICAgICAgICAgICAgICAgICAgICAgICAgICAgIC AgICAgICAgICAgICAgICAgICAgICAgICAgICAgICAg ICAgICAgICAgICAgICANCiAgICAgICAgICAgICAgICAgICAgICAgICAgICAgICAgICAgICAgICAgICAg ICAgICAgICAgICAgICAgICAgICAgICAgICAgICAgICAgICAgICAgICAgICAgICAgICAgICAgICANCiAg ICAgICAgICAgICAgICAgICAgICAgICAgICAgICAgIC AgICAgICAgICAgICAgICAgICAgICAgICAgICAgICAgICAgICAgICAgICAgICAgICAgICAgICAgICAgIC AgICAgICANCiAgICAgICAgICAgICAgICAgICAgICAgICAgICAgICAgICAgICAgICAgICAgICAgICAgIC AgICAgICAgICAgICAgICAgICAgICAgICAgICAgICAg ICAgICAgICAgICAgICAgICANCjw/yWDlV8acnVHjceQ3S0zoAl4ZGw2BSL2te8JtBQRoLZncjqVhDowA WhXqENYpVmpLYnl5CDbrTM3EfNFhC7KdN1XnJKgvIZ8QWMJoIWEbcVKbCFPwBATdXnJ0XOTiLWdvWL1E aWRzIFsgNSAwIFIgNyAwIFIgOSAwIFIgMTEgMCBSID EaMVVgMaRrNFcsGH7Fh7AesSD1PHu+Ji4EST3pb1KiLUifOfThYN6qlm9OOAcXKbUuY9XkzaD6MWO7KM WvMr5OUSRvNROkeOTnRrRkUMWIBkHnZ2JhbH34VZHAJr8+FFvhqrNsYvtUIbZ3EIEpb3FwMLg9DE8WSQ XtWXu1aGGkB50py2JamBQgKwvvCspgdCRfAHXLKCOz yErfiliirlvgJZErUVGxBJ0kKJ9jBKKzHQNaEiZpOJYLFW7CXVGwCDLgpSNuEMFzUYBFYY7UTVhrGQX3 DNTytlByvUFiWBfrFF4QLFSuacYtHmZmNEKRSSg+Vb8PIH4wt7FgUOlrNYNwQD8jjs1BLSsCYmYlT4O2 wZDvB6N8FYzyWp1SACDlOSPoRzAuBUBQOIrvHK2VVS 1phtA9ET8LxRCwZPQyVXFbnBNeEHi3A28fvMWkSUluOK7YJHU+Fady+Yv8ASXIeWQWnSWFmQqOlNSUEXy YwZ3QmF4FIo8FsK2TzAB35tQuuxsRvATypQO5EBS1xGUIjZULDVY6BdLFmtZ7htfDaCyVpSUOTBqGpM6 6pbDRtBLRuXFB0VBCpGk6MEAFhU7DbxpGajIwkbaZy OYPyMRTVQO7WFApkfnPkiNCgzFozMX56hXsuCH0EVv6OGtGoBW1afv8YbUPyBv0JGIPuSO7WHMYmLLLq JZBpOWC8VMCqPbZpNLtwHENyWHEnOVE7PXZfKYAkMB9JOdLtAAVtRxG1JpOwHJHsCAOqzg4GMDCcRFCl UHYiVjXoJBUfFPXsXSjmADXbWHQoTJS4UHLvKJJuOT 0MKzGbERQqBRK2KATbHQSuKRNixw3GLCRsQXQgULXyKLKuDMXhDSNwJVcqKYEcSHQ7VhR3GZSyPETnRV 4QMkGkFIHbSVC2NVWaZQHqOIZsmo0JSGPeUQEkXYNnJHRrWNVuDNJtVVnyIYSnUQG8UkR1UHJfKZTaWY 5EOnRqMXTqQQY9WtHjCHMsZDPeje1HEDIzAELsGcPm VkBvLNZkQMLqCDtqMAGgPTUuZtDmIKDsNWUmJH2VUhKzAUYoCAQ7PyomLMFqEEGtuv1RJSDiDAVjAWc9 XHYkZCQeVDLjNZjvTYSkPOZ0PJn2OPAvAOTgEC9HJmZlGQSlYQPzMgzuETYsOIYzqn4YTWYuEMQfJrLk YGXmALZwFPKwIOjfEHGnHJW3NxCaXVRyREStEF0KAg NjNGJjKOA8FWviOAFhCTVcvp9GNQCeFZNzJwG2PlQrVSUuMOSbZDykWJDkNVE3Ies2KXFsXYXaYY1KFq KySFTqPZq6SkrmAUQrFAOdoh4WUCYtYGYiGOieNjYnUUKaOXExRWvsRLQhFPM0LWZ3CLUmQJJdOI3KDx FoGBXiCCsiFXhhKJJrNWTslj2TOQCnMRLoXVR1NdYd ANLyGGGrRAhuDFUmDWCqFQWhZFXxKOIyIP0WPpMiKVXqDoCrQZwzFFGxMRNodm0JKOVwDITgKRN9ZBSe MVGiTHXaWOavLLFrTDGzCNJ1JQFkWCXzZP5ISuZfJSKyUnQ6YWvkTBWfPHNbjh4QXXMhVKFjZyVwEyEj BWVqBMKaBKyiJPBgEZBoQVV1RVKzNSImPE7UGhAwSI DfQuXsRoLwYQNlMYKhrf2RNJNrOKNzOJslMrEhOUKhBXOyLXrqNCZvMBB1Ygi4JEUaEWRsBE5XNoSbIK LhYvL6ORDkKUVsNFAuxr1TdYZabXuitq1HXWrBQf9KaPxrWUO3HVufUx2duZSlQYJuABAQQy9BhbVnFO BmCJTWHUetCVFuLKv0QXFdCgJwDSK9GKjvEPc6KZxz JnDhSmD1YHT0PrB8NmR5BPu9RkEqFeA3Rty5TEA5YwAwGWRzFYN1HLMjKGrhTeh+AC3oUGm+Kq9Zy5Rb [id number]== ID Date Data Source [id number] 06/12/2020 08:05:00 AM EDT [facility] Name Value Range Interpretation Code Description Data Laura rce(s) Supporting Document(s) SARS-CoV-2 RNA 2019 nCoV Real-Time RT-PCR: NOT DETECTED [facility] This lab was ordered by [facility] and reported by [facility]. ID Date Data Source [id number] 06/12/2020 09:42:27 AM EDT [facility] Name Value Range Interpretation Code Description Data Laura rce(s) Supporting Document(s) Specimen source [Identifier] of Unspecified specimen [facility] SARS-CoV-2 RNA 2019 nCoV Real-Time RT-PCR: NOT DETECTED [facility] Assay Performed [facility] Patients first test for [facility] Patient employed in healthcare setting [facility] Patient has symptoms related to [facility] When did you start to experience these symptoms [Date and time] [Phen X] [facility] Patient was hospitalized because of this condition [facility] patient was admitted to ICU for condition [facility] Patient resides in a congregate care setting [facility] status [facility] ID Date Data Source [id number] 06/12/2020 09:41:13 AM EDT [facility] Service Cmnt XXX-Imp : NoneRespiratory P CR Panel : PCR ResultsMicroorganism XXX Cult : See Labs Tab for 2019 nCoV RT-PCR resultsHAdV DNA QI BRYCE+non-probe : Not DetectedHCoV [id number] Nph QI BRYCE+non-probe : Not DetectedHCoV [id number] Nph QI BRYCE+non-probe : Not [id number] RNA Nph QI BRYCE+non-probe : Not [id number] RNA Upper resp QI BRYCE+probe : Not [...] DNA Nph Q BRYCE+non-probe : Not DetectedB [id number] DNA Nph BRYCE+non-probe : Not Detected Name Value Range Interpretation Code Description Data Laura rce(s) Supporting Document(s) ID Date Data Source [id number] 06/12/2020 02:51:36 AM EDT [facility] Name Value Range Interpretation Code Description Data Laura rce(s) Supporting Document(s) Albumin [Mass/volume] in Serum or Plasma by Bromocresol green (BCG) dye binding method 3.0 g/dL 3.5[facility] Bil[facility].total [Mass/volume] in Serum or Plasma 5.3 mg/dL <1.[address] [facility] Bilirubin.direct [Mass/volume] in Serum or Plasma 3.4 mg/dL <0.[address] [facility] Alkaline phosphatase [Enzymatic activity/volume] in Serum or Plasma 147 U/L 40-[address] [facility] Aspartate aminotransferase [Enzymatic activity/volume] in Serum or Plasma 40 U/L <[address] [facility] Alanine aminotransferase [Enzymatic activity/volume] in Seru m or Plasma 28 U/L <41 [facility] Protein [Mass/volume] in Serum or Plasma 7.5 g/dL 6.4-8.3 [facility] ID Date Data Source [id number] 06/12/2020 02:51:[address] [facility] Name Value Range Interpretation Code Description Data Laura rce(s) Supporting Document(s) Lipase [Enzymatic activity/volume] in Serum or Plasma 46 U/L 13-[address] [facility] ID Date Data Source [id number] 06/12/2020 02:51:[address] [facility] Name Value Range Interpretation Code Description Data Laura rce(s) Supporting Document(s) Bicarbonate [Moles/volume] in Serum 29 mmol/L 22-29 [facility] Chloride [Moles/volume] in Serum or Plasma 92 mmol/L 98-[address] [facility] Creatinine [Mass/volume] in Serum or Plasma 1.58 mg/dL 0.70-1.[address] [facility] Icteric Glucose [Mass/volume] in Serum or Plasma 200 mg/dL 70-[address] [facility] Potassium [Moles/volume] in Serum or Plasma 3.1 mmol/L 3.4-5.[address] [facility] Sodium [Moles/volume] in Serum or Plasma 131 mmol/L 136-[address] [facility] Urea nitrogen [Mass/volume] in Serum or Plasma 35 mg/dL 6-[address] [facility] Anion gap 3 in Serum or Plasma 9 mmol/L 8-15 [facility] Osmolality of Serum or Plasma by calculation 285 mosm/kg 275-300 [facility] Creatinine/Urea nitrogen [Mass Ratio] in Serum or Plasma 22 [facility] Calcium [Mass/volume] in Serum or Plasma 9.1 mg/dL 8.6-10.0 [facility] Glomerular filtration rate/1.73 sq M pre dicted among non-blacks [Volume Rate/Area] in Serum or Plasma by Creatinine-based formula (MDRD) 46 mL/min/1.73m2 >[address] [facility] Glomerular filtration rate/1.73 sq M pre dicted among blacks [Volume Rate/Area] in Serum or Plasma by Creatinine-based formula (MDRD) 54 mL/min/1.73m2 >[address] [facility] ID Date Data Source [id number] 06/12/2020 03:09:[address] [facility] Name Value Range Interpretation Code Description Data Laura rce(s) Supporting Document(s) Prothrombin time (PT) 19.6 s 12.5-14.[address] [facility] INR in Platelet poor plasma by Coagulation assay 1.63 [facility] Routine intensity oral anticoagulation I NR is typically 2.0-3.0. Target INR must be clinically individualized. ID Date Data Source [id number] 06/12/2020 04:48:12 AM [facility] Value Range Interpretation Code Description Data Laura rce(s) Supporting Document(s) Leukocytes [#/volume] in Blood by Automated count 10.4 10*3/uL 4-[address] [facility] Erythrocytes [#/volume] in Blood by Automated count 2.53 10*6/uL 4.6- 6.[address] [facility] Hemoglobin [Mass/volume] in Blood 8.9 g/dL 13.5-[address] [facility] Hematocrit [Volume Fraction] of Blood by Automated count 25.5 % 4 1-[address] [facility] Erythrocyte mean corpuscular volume [Entitic volume] b y Automated count 100.6 fL 80-[address] [facility] Erythrocyte mean corpuscular hemoglobin [Entitic mass] by Automated count 35.1 pg 27-[address] [facility] Erythrocyte mean corpuscular hemoglobin concentration [Mass/volume] by Automated count 34.9 g/dL 32.0-[facility] distribution width [Ratio] by Automated count 16.0 % 11.5-14.[address] [facility] Platelets [#/volume] in Blood by Automated count 61 10*3/uL 150-[address] [facility] Differential cell count method - Blood [facility] Neutrophils/100 leukocytes in Blood by Automated count 90 % [facility] Lymphocytes/100 leukocytes in Blood by Automated count 3 % [facility] Monocytes/100 leukocytes in Blood by Automated count 5 % [facility] Eosinophils/100 leukocytes in Blood by Automated count 1 % [facility] Neutrophils [#/volume] in Blood by Automated count 9.40 10*3/uL 1.8-[address] [facility] Lymphocytes [#/volume] in Blood by Automated count 0.30 10*3/uL 1.2-[address] [facility] Monocytes [#/volume] in Blood by Automated count 0.50 10*3/uL 0-0.8 [facility] Eosinophils [#/volume] in Blood by Automated count 0.10 10*3/uL 0-0.5 [facility] Metamyelocytes/100 leukocytes in Blood by Manual count 1 % [facility] Metamyelocytes [#/volume] in Blood by Manual count 0.10 10*3/uL 0-[address] [facility] Macrocytes [Presence] in Blood by Light microscopy [facility] Anisocytosis [Presence] in Blood by Light [facility] Poikilocytosis [Presence] in Blood by Light [facility] Polychromasia [Presence] in Blood by Light microscopy [facility] Pappenheimer bodies [Presence] in Blood by Light [facility] ID Date Data Source [id number] 06/12/2020 10:51:23 AM [facility] Value Range Interpretation Code Description Data Laura rce(s) Supporting Document(s) Cobalamin (Vitamin B12) [Mass/volume] in Serum or Plasma 2 11-[address] [facility] ID Date Data Source [id number] 06/12/2020 10:51:23 AM [facility] Value Range Interpretation Code Description Data Laura rce(s) Supporting Document(s) Magnesium [Mass/volume] in Serum or Plasma 1.4 mg/dL 1.6-2.6 [facility] ID Date Data Source [id number] 06/12/2020 10:51:23 AM [facility] Value Range Interpretation Code Description Data Laura rce(s) Supporting Document(s) Phosphate [Mass/volume] in Serum or Plasma 3.3 mg/dL 2.5-4.5 [facility] ID Date Data Source [id number] 06/12/2020 10:51:23 AM [facility] Value Range Interpretation Code Description Data Laura rce(s) Supporting Document(s) Thyrotropin [Units/volume] in Serum or Plasma 1.640 u[IU]/mL 0.270-4. 200 [facility] ID Date Data Source [id number] 06/19/2020 08:08:27 AM EDT [facility] Name Value Range Interpretation Code Description Data Laura rce(s) Supporting Document(s) Thiamine [Moles/volume] in Blood 77.3 nmol/L 66.5-200.0 [facility] (NOTE)This test was developed and its pe rformance characteristicsdetermined by [facility]. It has not been cleared or approvedby the Food and Drug Administration.Performed At: [facility] [id number] Sanjai MD Ph:[phone] ID Date Data Source [id number] 06/12/2020 09:23:14 PM EDT [facility] Name Value Range Interpretation Code Description Data Laura rce(s) Supporting Document(s) HIV 1+2 Ab+HIV1 p24 Ag [Presence] in Serum or Plasma by Immu noassay Non Reactive [facility] Negative for HIV-1 p24 antigenand HIV-1/ HIV-2 antibodies. Nolaboratory evidence of HIVinfection. ID Date Data Source [id number] 06/12/2020 10:50:22 AM T [facility] Name Value Range Interpretation Code Description Data Laura rce(s) Supporting Document(s) Ethanol [Mass/volume] in Serum or Plasma Negative [facility] ID Date Data Source [id number] 06/12/2020 10:50:22 AM T [facility] Value Range Interpretation Code Description Data Laura rce(s) Supporting Document(s) Folate [Mass/volume] in Serum or Plasma 4.15 ng/mL >4.[address] [facility] ID Date Data Source [id number] 06/12/2020 12:49:00 AM EDT [facility] Patient: ADDISON ZUÑIGA Observation Rep ort - Physicians/Mid Levels . [facility].VisitID: [id number] [place] [address] [phone], MRegistration Date/Time: 06/11/2020 16:24 Weight:83.9 kg (S). Height/Length:60 inches (S). BMI:36.1 PAST HISTORYProblems:Hypertension.Cirrhosis. Additional Surgeries:no known surgeries. Medications:Torsemide Oral 20 mg, daily, last dose today.Spironolactone Oral 25 mg, daily, last dose today.Metoprolol Tartrate Oral unk, daily, last dose unk.Pantoprazole Sodium Oral 40 mg, daily, last dose today. Allergies:No Known Drug Allergy. FAMILY HISTORYNo significant family medical history. (Electronically signed by Karla Viveros, P.A. 06/11/2020 19:09) Weight:83.9 kg (S). Height/Length:60 inches (S). BMI:36.1 PAST HISTORYProblems:Gastroesophageal Reflux Disease.Hypertension.Cirrhosis. Additional Surgeries:no known surgeries. Medications:Torsemide Oral 20 mg, daily, last dose today.Spironolactone Oral 25 mg, daily, last dose today.Metoprolol Tartrate Oral unk, daily, last dose unk.Pantoprazole Sodium Oral 40 mg, daily, last dose today. Allergies:No Known Drug Allergy. (Electronically signed by Leon Farooq, P.A. 06/12/2020 00:31) Name Value Range Interpretation Code Description Data Laura rce(s) Supporting Document(s) ID Date Data Source [id number] 06/11/2020 10:24:00 PM EDT [facility] Name Value Range Interpretation Code Description Data Laura rce(s) Supporting Document(s) COVID-19 NEGATIVE [facility] This lab was ordered by [facility] and reported by [facility]. ID Date Data Source [id number] 06/11/2020 10:45:00 PM EDT [facility] [id number] Name Value Range Interpretation Code Description Data Laura rce(s) Supporting Document(s) COVID-19 NEGATIVE NEGATIVE [facility] Negative results should be treated as pr [...] are for the indentification of SARS-CoV-2 RNA. ZjbSXJV-[id number] RNA is generally detectable in respiratorysamples during the actue phase of infection. ID Date Data Source [id number] 06/11/2020 08:41:00 PM EDT [facility] TSYSORDER [id number] Name Value Range Interpretation Code Description Data Laura rce(s) Supporting Document(s) URINE RBC 1-3 /hpf 0-3 [facility] URINE WBC 0-2 /hpf 0-5 [facility] ID Date Data Source [id number] 06/11/2020 08:29:00 PM EDT [facility] TSYSORDER [id number] Name Value Range Interpretation Code Description Data Laura rce(s) Supporting Document(s) URINE COLOR. [facility] URINE APPEARANCE CLEAR [facility] l URINE GLUCOSE (UA) NEGATIVE mg/dL NEGATIVE [facility] URINE BILIRUBIN NEGATIVE NEGATIVE [facility] URINE KETONE NEGATIVE mg/dL NEGATIVE [facility] al SPECIFIC GRAVITY,URINE 1.015 1.005-1.030 [facility] URINE BLOOD TRACE NEGATIVE H [facility] PH,URINE 6.0 5.0-9.0 [facility] URINE PROTEIN NEGATIVE mg/dL NEGATIVE [facility] URINE UROBILINOGEN 4 mg/dL 0-1 H [facility] URINE NITRATE NEGATIVE NEGATIVE [facility] URINE LEUKOCYTE ESTERASE NEGATIVE NEGATIVE [facility] ID Date Data Source [id number] 06/11/2020 07:39:00 PM EDT [facility] DATE OF EXAMINATION: 06/11/2020 17:37 [...] rce(s) Supporting Document(s) ID Date Data Source [id number] 06/11/2020 07:36:00 PM [facility] DATE OF EXAMINATION: 06/11/2020 17:38 EDT [...] rce(s) Supporting Document(s) ID Date Data Source [id number] 06/11/2020 07:28:00 PM EDT [facility] DATE OF EXAMINATION: 06/11/2020 17:38 EDT [...] rce(s) Supporting Document(s) ID Date Data Source [id number] 06/11/2020 06:38:00 PM EDT [facility] TSYSORDER [id number] Name Value Range Interpretation Code Description Data Laura rce(s) Supporting Document(s) TSH 1.670 uIU/mL 0.360-3.740 [facility] ID Date Data Source [id number] 06/11/2020 06:37:00 PM EDT [facility] TSYSORDER [id number] Name Value Range Interpretation Code Description Data [facility] rce(s) Supporting Document(s) MAGNESIUM 1.4 mg/dL 1.8-2.4 [facility] ID Date Data Source [id number] 06/11/2020 06:37:00 PM EDT [facility] TSYSORDER [id number] Name Value Range Interpretation Code Description Data Laura rce(s) Supporting Document(s) TROPONIN I < 0.017 ng/mL 0.000-0.056 [facility] ID Date Data Source [id number] 06/11/2020 06:37:00 PM EDT [facility] TSYSORDER [id number] Name Value Range Interpretation Code Description Data Laura rce(s) Supporting Document(s) CREATINE PHOSPHOKINASE 44 U/L 39-308 [facility] ID Date Data Source [id number] 06/11/2020 06:37:00 PM EDT [facility] TSYSORDER [id number] Name Value Range Interpretation Code Description Data Laura rce(s) Supporting Document(s) LIPASE 132 U/L 73-393 [facility] ID Date Data Source [id number] 06/11/2020 06:37:00 PM EDT [facility] [id number] Name Value Range Interpretation Code Description Data Laura rce(s) Supporting Document(s) GLUCOSE 192 mg/dL 74-106 H [facility] BLOOD UREA NITROGEN 39 mg/dL 7-18 H [facility] CREATININE 1.72 mg/dL 0.7-1.3 H [facility] SODIUM 130 mmol/L 136-145 L [facility] POTASSIUM 3.0 mmol/L 3.5-5.1 L [facility] CHLORIDE 93 mmol/L 98-107 L [facility] CO2 30 mmol/L 21-32 [facility] CALCIUM 9.1 mg/dL 8.5-10.1 [facility] ANION GAP 7.0 mmol/L 5-12 [facility] GLOMERULAR FILTRATION RATE 41 mL/min [facility] GFR IS CALCULATED IN mL/min/1.73m2 HEIDE L FUNCTION: >90MILDLY DECREASED: 60-89MILDY TO MODERATELY DECREASED: 45-59 MODERATELY TO SEVERELY DECREASED: 30-44SEVERELY DECREASED: 15-29RENAL FAILURE: <15 AST 51 U/L 15-37 H [facility] ALT 35 U/L 12-78 [facility] ALKALINE PHOSPHATASE 145 U/L 46-116 H [facility] TOTAL BILIRUBIN 4.6 mg/dL 0.2-1.0 H [facility] TOTAL PROTEIN 7.3 g/dl 6.4-8.2 [facility] ALBUMIN 2.4 gm/dL 3.4-5.0 L [facility] ID Date Data Source [id number] 06/11/2020 06:34:[address] [facility] l TSYSORDER [id number] Name Value Range Interpretation Code Description Data Laura rce(s) Supporting Document(s) PARTIAL THROMBOPLASTIN TIME 22.5 SECONDS 21.2-27.3 [facility] ID Date Data Source [id number] 06/11/2020 06:34:00 PM [facility] TSYSORDER [id number] Name Value Range Interpretation Code Description Data Laura rce(s) Supporting Document(s) PROTHROMBIN TIME (PATIENT) 15.3 SECONDS 9.1-11.6 H [facility] INR 1.48 0.87-1.06 H [facility] ID Date Data Source [id number] 06/11/2020 06:08:00 PM [facility] TSYSORDER [id number] Name Value Range Interpretation Code Description Data Laura rce(s) Supporting Document(s) WHITE BLOOD COUNT 11.3 K/mm3 4.0-10.0 H [facility] mariana RED BLOOD COUNT 2.41 M/mm3 4.50-6.00 L [facility] HEMOGLOBIN 8.2 gm/dL 14.0-18.0 [facility] HEMATOCRIT 23.4 % 42.0-54.0 [facility] MEAN CELL VOLUME 97.1 fl 80-96 H [facility] MEAN CORPUSCULAR HEMOGLOBIN 34.0 pg 27.0-31.0 H [facility] MEAN CORPUSCULAR HGB CONC 35.0 g/dl 32.0-36.0 [facility] RED CELL DISTRIBUTION WIDTH 16.3 % 10.0-14.5 H [facility] PLATELET COUNT 60 K/mm3 172-450 L [facility] MEAN PLATELET VOLUME 10.3 fl 9.0-13.0 [facility] % 77.0 % 50-80.0 [facility] IG% 1.2 % 0.0-0.2 H [facility] LYMPH % 5.1 % 25.0-50.0 L [facility] MONO % 15.8 % 2.0-10.0 H [facility] EOS % 0.6 % 0-5.0 [facility] BASO % 0.3 % 0.0-2.0 [facility] GRAN # 8.7 K/mm3 2.0-8.00 H [facility] IG# 0.1 K/mm3 0.0-0.2 [facility] LYMPH # 0.6 K/mm3 1.0-5.0 L [facility] MONO # 1.8 K/mm3 0.10-1.20 H [facility] EOS # 0.1 K/mm3 0.0-0.5 [facility] BASO # 0.0 K/mm3 0.0-0.2 [facility] ID Date Data Source [id number] 06/11/2020 07:30:[address] [facility] l TSYSORDER [id number] Name Value Range Interpretation Code Description Data Laura rce(s) Supporting Document(s) BLOOD TYPE ABO AB [facility] RH TYPE POSITIVE [facility] ANTIBODY SCREEN NEGATIVE [facility] CROSSMATCH COMPATIBLE [facility] SEE TRANSFUSION RECORD IN LABUNITS ALINA HERMAN FOR TRANSFUSION ID Date Data Source [id number] 06/11/2020 07:03:[address] [facility] l TSYSORDER [id number] Name Value Range Interpretation Code Description Data Laura rce(s) Supporting Document(s) DIRECT BILIRUBIN 3.6 mg/dL 0-0.2 *H [facility] l ID Date Data Source [id number] 04/05/2020 01:51:00 PM EST [facility] FASTING: UNKNOWNReceived: 04/05/2020 at 03:40:00 QPT: [facility], [address], [address] [place] [address], [phone], Ryan Brown MD Received: 04/05/2020 at 03:40:00 QPT : [facility], [address], [address] [place], [phone], Ryan Brown MD Name Value Range Interpretation [...] is approximately 13% higher for peopleidentified as -[place]. Glomerular filtration rate/1.73 sq M.pre dicted [Volume [...] results) [facility] ID Date Data Source [id number] 04/05/2020 01:51:00 PM EST [facility] FASTING: UNKNOWNReceived: 04/05/2020 at 03:40:00 QPT: [facility], [address], [address] [place], [address], Ryan Brown MD Received: 04/05/2020 at 03:40:00 QPT : [facility], [address], [address] [place], [phone], Ryan Brown MD Name Value Range Interpretation [...] results) [facility] ID Date Data Source [id number] 02/08/2020 08:48:00 AM EST [facility] [...] the right epididymisis seen which may be [employer] health insurance of calcified granuloma. Similar appearingstructure measuring 0.5 cm also identified. IMPRESSION: 7 x 12 cm fluid collection superior to the left testicle extending to the levelof the inguinal canal as well as 2 echogenic calcified appearing foci of rightepididymis likely [employer] health [employer] of granulomas. These findings warrant urologyconsult. Electronically signed in [id number] by: Stephen Roman M.D. 02/08/2020 8:43 EST Name Value Range Interpretation Code Description Data Laura rce(s) Supporting Document(s) ID Date Data Source [id number] 02/08/2020 08:35:00 AM EST [facility] [...] rce(s) Supporting Document(s) ID Date Data Source [id number] 01/22/2020 07:05:00 PM EST [facility] Name Value Range Interpretation Code Description Data Laura rce(s) Supporting Document(s) Hepatitis C Quantitation HCV Not Detected IU/mL [facility] HCV log10 [facility] Unable to calculate result since non-num karla result obtained forcomponent test. Test Information: [facility] The quantitative range of this assay is 15 IU/mL to 100 million IU/mL. HCV Genotype [facility] Not indicated ID Date Data Source [id number] 11/29/2019 10:00:00 AM EDT [facility] Name Value Range Interpretation Code Description Data Laura rce(s) Supporting Document(s) SARS coronavirus 2 RNA [facility] This lab was ordered by [facility] and reported by [facility]. Procedure Social History Code Duration Value Status Description Data Source(s ) Smoking 12/06/2020 12:00:00 AM EDT Current Smoker completed Curre nt Smoker eCW1 ([facility]ly [facility]) Smoking 12/06/2020 12:00:00 AM EDT Current Smoker completed Curre nt Smoker eCW1 (Formerly [facility]) Alcohol intake 12/03/2020 12:00:00 AM EDT Current drinker of al cohol (finding) completed Current drinker of alcohol (finding) [facility] Smoking 10/24/2020 12:00:00 AM EDT Current Smoker completed Curre nt Smoker eCW1 (Formerly [facility]) Smoking 10/24/2020 12:00:00 AM EDT Current Smoker completed Curre nt Smoker eCW1 (Formerly [facility]) Smoking 10/24/2020 12:00:00 AM EDT Current Smoker completed Curre nt Smoker eCW1 ([facility]ly [facility]) Smoking 10/24/2020 12:00:00 AM EDT Current Smoker completed Curre nt Smoker eCW1 (Formerly [facility]) Smoking 10/24/2020 12:00:00 AM EDT Current Smoker completed Curre nt Smoker eCW1 ([facility]ly [facility]) Smoking 10/24/2020 12:00:00 AM EDT Current Smoker completed Curre nt Smoker eCW1 ([facility]ly [facility]) Smoking 10/24/2020 12:00:00 AM EDT Current Smoker completed Curre nt Smoker eCW1 ([facility]ly [facility]) Smoking 09/11/2020 12:00:00 AM EDT Current Smoker completed Curre nt Smoker eCW1 ([facility]ly [facility]) Smoking 09/11/2020 12:00:00 AM EDT Current Smoker completed Curre nt Smoker eCW1 ([facility]ly [facility]) Smoking 09/11/2020 12:00:00 AM EDT Current Smoker completed Curre nt Smoker eCW1 (Formerly [facility]) Smoking 09/11/2020 12:00:00 AM EDT Current Smoker completed Curre nt Smoker eCW1 (Formerly [facility]) Smoking 09/11/2020 12:00:00 AM EDT Current Smoker completed Curre nt Smoker eCW1 (Formerly [facility]) Smoking 09/11/2020 12:00:00 AM EDT Current Smoker completed Curre nt Smoker eCW1 (Formerly [facility]) Smoking 09/11/2020 12:00:00 AM EDT Current Smoker completed Curre nt Smoker eCW1 (Formerly [facility]) Alcohol intake 09/07/2020 12:00:00 AM EDT Ex-drinker (finding) comp leted Ex- drinker (finding) [facility] Tobacco use and exposure 09/07/2020 12:00:00 AM EDT Never used co mpleted Never used [facility] Smoking 09/07/2020 12:00:00 AM EDT Current every day smoker co mpleted Current every day smoker [facility] Alcohol intake 09/03/2020 12:00:00 AM EDT Current drinker of al cohol (finding) completed Current drinker of alcohol (finding) [facility] Smoking 08/14/2020 12:00:00 AM EDT Current Smoker completed Curre nt Smoker eCW1 (Formerly [facility]) Smoking 08/14/2020 12:00:00 AM EDT Current Smoker completed Curre nt Smoker eCW1 (Formerly [facility]) Smoking 08/14/2020 12:00:00 AM EDT Current Smoker completed Curre nt Smoker eCW1 (Formerly [facility]) Smoking 08/14/2020 12:00:00 AM EDT Current Smoker completed Curre nt Smoker eCW1 ([facility]ly [facility]) Smoking 08/14/2020 12:00:00 AM EDT Current Smoker completed Curre nt Smoker eCW1 ([facility]ly [facility]) Smoking 08/07/2020 12:00:00 AM EDT Current Smoker completed Curre nt Smoker eCW1 ([facility]ly [facility]) Smoking 07/31/2020 12:00:00 AM EDT Current Smoker completed Curre nt Smoker eCW1 ([facility]ly [facility]) Smoking 07/31/2020 12:00:00 AM EDT Current Smoker completed Curre nt Smoker eCW1 (Formerly [facility]) Smoking 07/25/2020 12:00:00 AM EDT Current Smoker completed Curre nt Smoker eCW1 (Formerly [facility]) Smoking 07/25/2020 12:00:00 AM EDT Current Smoker completed Curre nt Smoker eCW1 (Formerly [facility]) Alcohol intake 07/15/2020 12:00:00 AM EDT Ex-drinker (finding) comp leted Ex- drinker (finding) [facility] Smoking 07/04/2020 12:00:00 PM EDT Tobacco smoki ng consumption unknown (finding) completed Unknown If Ever Smoked [employer] (Ambrosio shen) Alcohol intake 07/04/2020 12:00:00 AM EDT Current drinker of al cohol (finding) completed Current drinker of alcohol (finding) [facility] Alcohol intake 06/12/2020 12:00:00 AM EDT Current drinker of al cohol (finding) completed Current drinker of alcohol (finding) [facility] Tobacco use and exposure 03/15/2020 12:00:00 AM EST Never used co mpleted Never used [facility] Cigarettes smoked current (pack per day) - Reported 03/15/19 12:00:00 AM EST UNK completed [facility] Smoking 03/15/2020 12:00:00 AM EST Current every day smoker co mpleted Current every day smoker [facility] Alcohol intake 03/15/2020 12:00:00 AM EST Yes completed [facility] Smoking 03/15/2020 12:00:00 AM EST Current every day smoker co mpleted Current every day smoker [facility] Smoking 03/02/2020 12:00:00 AM EST Current Smoker completed Curre nt Smoker eCW1 (Formerly [facility]) Smoking 03/02/2020 12:00:00 AM EST Current Smoker completed Curre nt Smoker eCW1 (Formerly [facility]) Smoking 01/24/2020 12:00:00 AM EST Current Smoker completed Curre nt Smoker eCW1 (Formerly [facility]) Smoking 01/24/2020 12:00:00 AM EST Current Smoker completed Curre nt Smoker eCW1 (Formerly [facility]) Smoking 01/24/2020 12:00:00 AM EST Current Smoker completed Curre nt Smoker eCW1 (Formerly [facility]) Smoking 01/24/2020 12:00:00 AM EST Current Smoker completed Curre nt Smoker eCW1 (Formerly [facility]) Smoking 01/24/2020 12:00:00 AM EST Current Smoker completed Curre nt Smoker eCW1 (Formerly [facility]) Smoking 01/13/2020 12:00:00 AM EST Current Smoker completed Curre nt Smoker eCW1 (Formerly [facility]) Vital Signs ID Date Data Source UNK Name Value Range Interpretation Code Description Data Source(s) Body mass index (BMI) [Ratio] 30.2 kg/m2 30.2 k g/m2 [facility] ([facility]) [place] body weight 130 [lb_av] 130 [lb_av] MEDEN T ([facility]) Body weight 79.834 kg 79.834 kg [facility] ([facility]) Body surface area Derived from formula 1.85 m2 1.85 m2 [facility] ([facility]) Systolic blood pressure 131 mm[Hg] 131 mm[Hg] M [facility] ([facility]) Diastolic blood pressure 75 mm[Hg] 75 mm[Hg] [facility] ([facility]) Body height 64 [in_i] 64 [in_i] [facility] ([facility]) 5'4" Body weight 176.00 [lb_av] 176.00 [lb_av] MEDEN T ([facility]) Body weight 195 [lb_av] 195 [lb_av] eCW1 ([facility]) Body height 65 [in_i] 65 [in_i] eCW1 ([facility]) Body mass index (BMI) [Ratio] 32.45 kg/m2 32.45 kg/m2 [facility] ([facility]) Heart rate 95 /min 95 /min W1 ([facility]) Respiratory rate 19 /min 19 /min W1 (Formerly [facility], [facility]) Body temperature 98 [degF] 98 [degF] eCW1 ([facility]ly [facility], [facility]) Systolic blood pressure 123 mm[Hg] 123 mm[Hg] e CW1 (Formerly [facility]) Diastolic blood pressure 80 mm[Hg] 80 mm[Hg] eCW1 (Formerly [facility]) Systolic blood pressure 106 mm[Hg] 106 mm[Hg] [facility] Diastolic blood pressure 68 mm[Hg] 68 mm[Hg] [facility] Body mass index (BMI) [Ratio] 33.07 kg/m2 33.07 kg/m2 [facility] Oxygen saturation in Arterial blood by Pulse oximetry 99 % 99 % [facility] Heart rate 84 /min 84 /min [facility] Respiratory rate 19 /min 19 /min [facility] Body height 154.9 cm 154.9 cm [facility] Body weight 79.379 kg 79.379 kg [facility] Body weight 195.8 [lb_av] 195.8 [lb_av] eCW1 ([facility]) Body height 65 [in_i] 65 [in_i] eCW1 ([facility]) Body mass index (BMI) [Ratio] 32.58 kg/m2 32.58 kg/m2 eCW1 (Formerly [facility]) Heart rate 84 /min 84 /min eCW1 ([facility]) Respiratory rate 20 /min 20 /min eCW1 ([facility]ly [facility]) Body temperature 97.8 [degF] 97.8 [degF] eCW1 ( [facility]ly [facility]) Systolic blood pressure 112 mm[Hg] 112 mm[Hg] e CW1 ([facility]ly [facility]) Diastolic blood pressure 70 mm[Hg] 70 mm[Hg] eCW1 ([facility]ly [facility]) Body weight 208 [lb_av] 208 [lb_av] eCW1 ([facility]) Body height 65 [in_i] 65 [in_i] eCW1 ([facility]) Body mass index (BMI) [Ratio] 34.61 kg/m2 34.61 kg/m2 eCW1 (Formerly [facility]) Heart rate 76 /min 76 /min eCW1 ([facility]) Respiratory rate 18 /min 18 /min eCW1 ([facility]ly [facility]) Body temperature 98 [degF] 98 [degF] eCW1 ([facility]) Systolic blood pressure 105 mm[Hg] 105 mm[Hg] e CW1 ([facility]ly [facility]) Diastolic blood pressure 68 mm[Hg] 68 mm[Hg] eCW1 ([facility]) Systolic blood pressure 136 mm[Hg] 136 mm[Hg] [facility] Diastolic blood pressure 72 mm[Hg] 72 mm[Hg] [facility] Heart rate 81 /min 81 /min [facility] Body height 157.5 cm 157.5 cm [facility] Body weight 95.709 kg 95.709 kg [facility] Body mass index (BMI) [Ratio] 38.59 kg/m2 38.59 kg/m2 [facility] Oxygen saturation in Arterial blood by Pulse oximetry 99 % 99 % [facility] Body weight 223.8 [lb_av] 223.8 [lb_av] eCW1 ([facility]) Heart rate 94 /min 94 /min eCW1 ([facility]) Body height 65 [in_i] 65 [in_i] eCW1 ([facility]) Body mass index (BMI) [Ratio] 37.24 kg/m2 37.24 kg/m2 W1 ([facility]ly [facility]) Respiratory rate 22 /min 22 /min eCW1 ([facility]) Body temperature 97.8 [degF] 97.8 [degF] eCW1 ( [facility]) Systolic blood pressure 151 mm[Hg] 151 mm[Hg] e CW1 ([facility]) Diastolic blood pressure 100 mm[Hg] 100 mm[Hg] eCW1 ([facility]) Body height 65 [in_i] 65 [in_i] eCW1 ([facility]) Body mass index (BMI) [Ratio] 35.61 kg/m2 35.61 kg/m2 eCW1 ([facility]ly [facility]) Heart rate 110 /min 110 /min eCW1 ([facility]) Respiratory rate 18 /min 18 /min eCW1 ([facility]) Body temperature 98.1 [degF] 98.1 [degF] eCW1 ( [facility]) Systolic blood pressure 132 mm[Hg] 132 mm[Hg] e CW1 ([facility]ly [facility]) Diastolic blood pressure 70 mm[Hg] 70 mm[Hg] eCW1 ([facility]ly [facility]) Body weight 214 [lb_av] 214 [lb_av] eCW1 ([facility]) Body weight 214 [lb_av] 214 [lb_av] eCW1 ([facility]) Body height 65 [in_i] 65 [in_i] eCW1 ([facility]) Body mass index (BMI) [Ratio] 35.61 kg/m2 35.61 kg/m2 eCW1 ([facility]ly [facility]) Heart rate 79 /min 79 /min eCW1 ([facility]) Respiratory rate 18 /min 18 /min eCW1 ([facility]) Body temperature 97.9 [degF] 97.9 [degF] eCW1 ( [facility]) Systolic blood pressure 111 mm[Hg] 111 mm[Hg] e CW1 ([facility]ly [facility]) Diastolic blood pressure 74 mm[Hg] 74 mm[Hg] eCW1 ([facility]) Body weight 205.8 [lb_av] 205.8 [lb_av] eCW1 ([facility]) Body height 65 [in_i] 65 [in_i] eCW1 ([facility]) Body mass index (BMI) [Ratio] 34.24 kg/m2 34.24 kg/m2 eCW1 ([facility]ly [facility]) Heart rate 91 /min 91 /min eCW1 ([facility]) Respiratory rate 19 /min 19 /min eCW1 ([facility]) Body temperature 97.9 [degF] 97.9 [degF] eCW1 ( [facility]) Systolic blood pressure 130 mm[Hg] 130 mm[Hg] e CW1 ([facility]) Diastolic blood pressure 77 mm[Hg] 77 mm[Hg] eCW1 ([facility]) Systolic blood pressure 108 mm[Hg] 108 mm[Hg] [facility] Diastolic blood pressure 72 mm[Hg] 72 mm[Hg] [facility] Heart rate 76 /min 76 /min [facility] Body height 152.4 cm 152.4 cm [facility] Body weight 84.823 kg 84.823 kg [facility] Body mass index (BMI) [Ratio] 36.52 kg/m2 36.52 kg/m2 [facility] Oxygen saturation in Arterial blood by Pulse oximetry 100 % 100 % [facility] Diastolic blood pressure 82 mm[Hg] 82 mm[Hg] eCW1 ([facility]ly [facility]) Body weight 190 [lb_av] 190 [lb_av] eCW1 ([facility]) Body height 65 [in_i] 65 [in_i] eCW1 ([facility]) Body mass index (BMI) [Ratio] 31.61 kg/m2 31.61 kg/m2 eCW1 ([facility]ly [facility]) Heart rate 96 /min 96 /min eCW1 ([facility]) Respiratory rate 20 /min 20 /min eCW1 ([facility]ly [facility]) Systolic blood pressure 138 mm[Hg] 138 mm[Hg] e CW1 ([facility]ly [facility]) Body weight [lb_av] eCW1 ([facility]) Body height 65 [in_i] 65 [in_i] eCW1 ([facility]) Body mass index (BMI) [Ratio] 31.45 kg/m2 31.45 kg/m2 eCW1 ([facility]ly [facility]) Heart rate 105 /min 105 /min eCW1 ([facility]) Respiratory rate 20 /min 20 /min eCW1 ([facility]) Body temperature 99.7 [degF] 99.7 [degF] eCW1 ( [facility]) Systolic blood pressure 129 mm[Hg] 129 mm[Hg] e CW1 ([facility]) Diastolic blood pressure 86 mm[Hg] 86 mm[Hg] eCW1 ([facility]) Body weight 189 [lb_av] 189 [lb_av] eCW1 ([facility]) Systolic blood pressure 123 mm[Hg] 123 mm[Hg] e CW1 ([facility]) Diastolic blood pressure 85 mm[Hg] 85 mm[Hg] eCW1 ([facility]) Body height 65 [in_i] 65 [in_i] eCW1 ([facility]) Body mass index (BMI) [Ratio] 31.45 kg/m2 31.45 kg/m2 eCW1 ([facility]) Heart rate 132 /min 132 /min eCW1 ([facility]) Respiratory rate 20 /min 20 /min eCW1 ([facility]) Body temperature 98.6 [degF] 98.6 [degF] eCW1 ( [facility]) ID Date Data Source [id number] 07/27/2020 11:43:38 AM EDT [facility] Name Value Range Interpretation Code Description Data Source(s) WEIGHT RECORDED 200 lb 200 lb [facility] Body height Measured 62 in 62 in [facility] TRANSFER FROM [facility] ID Date Data Source [id number] 06/20/2020 04:42:49 PM EDT [facility] Name Value Range Interpretation Code Description Data Source(s) WEIGHT RECORDED 199.08 lb 199.08 lb [facility] WEIGHT RECORDED 180 lb 180 lb [facility] Body height Measured 62 in 62 in [facility] TRANSFER FROM [facility] Patient Treatment Plan of Care Planned Activity Planned Date Details Description Data Source (s) Potassium Chloride 10 MEQ Extended Release Oral Tablet 12/09/2020 12:00:00 AM EDT eCW1 ([facility]) Potassium Chloride 10 MEQ Extended Release Oral Tablet 12/09/2020 12:00:00 AM EDT eCW1 ([facility]) Hydroxyzine Hydrochloride 25 MG Oral Tablet 2020 12:00:00 AM EDT [facility] Hydroxyzine Hydrochloride 25 MG Oral Tablet 2020 12:00:00 AM EDT eCW1 (Formerly [facility]) Hydroxyzine Hydrochloride 25 MG Oral Tablet 2020 12:00:00 AM EDT eCW1 ([facility]ly [facility]) Hydroxyzine Hydrochloride 25 MG Oral Tablet 2020 12:00:00 AM EDT eCW1 ([facility]ly [facility]) Hydroxyzine Hydrochloride 25 MG Oral Tablet 2020 12:00:00 AM EDT eCW1 ([facility]ly [facility]) Hydroxyzine Hydrochloride 25 MG Oral Tablet 2020 12:00:00 AM EDT eCW1 ([facility]) Hydroxyzine Hydrochloride 25 MG Oral Tablet 2020 12:00:00 AM EDT eCW1 ([facility]ly [facility]) torsemide 20 MG Oral Tablet 10/02/2020 12:00:00 AM EDT [facility] torsemide 20 MG Oral Tablet 09/03/2020 12:00:00 AM EDT [facility] torsemide 20 MG Oral Tablet 09/03/2020 12:00:00 AM [facility] Furosemide 20 MG Oral Tablet 08/17/2020 12:00:00 AM EDT [facility] carvedilol 12.5 MG Oral Tablet 08/14/2020 12:00:00 AM EDT eCW1 ([facility]) carvedilol 12.5 MG Oral Tablet 08/14/2020 12:00:00 AM EDT eCW1 ([facility]ly [facility]) carvedilol 12.5 MG Oral Tablet 08/14/2020 12:00:00 AM EDT eCW1 ([facility]) carvedilol 12.5 MG Oral Tablet 08/14/2020 12:00:00 AM EDT eCW1 ([facility]ly [facility]) carvedilol 12.5 MG Oral Tablet 08/14/2020 12:00:00 AM EDT eCW1 ([facility]ly [facility]) carvedilol 12.5 MG Oral Tablet 08/14/2020 12:00:00 AM EDT eCW1 ([facility]) carvedilol 12.5 MG Oral Tablet 08/14/2020 12:00:00 AM EDT eCW1 ([facility]ly [facility]) carvedilol 12.5 MG Oral Tablet 08/14/2020 12:00:00 AM EDT [facility] carvedilol 12.5 MG Oral Tablet 08/14/2020 12:00:00 AM EDT eCW1 ([facility]ly [facility]) carvedilol 12.5 MG Oral Tablet 08/14/2020 12:00:00 AM EDT eCW1 ([facility]ly [facility]) carvedilol 12.5 MG Oral Tablet 08/14/2020 12:00:00 AM EDT eCW1 ([facility]ly [facility]) carvedilol 12.5 MG Oral Tablet 08/14/2020 12:00:00 AM EDT eCW1 ([facility]ly [facility]) carvedilol 12.5 MG Oral Tablet 08/14/2020 12:00:00 AM EDT eCW1 ([facility]ly [facility]) carvedilol 12.5 MG Oral Tablet 08/14/2020 12:00:00 AM EDT eCW1 ([facility]) carvedilol 12.5 MG Oral Tablet 08/14/2020 12:00:00 AM EDT eCW1 ([facility]) carvedilol 12.5 MG Oral Tablet 08/14/2020 12:00:00 AM EDT eCW1 ([facility]) carvedilol 12.5 MG Oral Tablet 08/14/2020 12:00:00 AM EDT eCW1 ([facility]) carvedilol 12.5 MG Oral Tablet 08/14/2020 12:00:00 AM EDT eCW1 ([facility]) carvedilol 12.5 MG Oral Tablet 08/14/2020 12:00:00 AM EDT eCW1 ([facility]) carvedilol 12.5 MG Oral Tablet 08/14/2020 12:00:00 AM EDT eCW1 (Formerly [facility]) 24 HR Nicotine 0.875 MG/HR Transdermal Patch [Nicoderm C-Q] 07/25/2020 12:00:00 AM EDT eCW1 ([facility]) 24 HR Nicotine 0.875 MG/HR Transdermal Patch [Nicoderm C-Q] 07/25/2020 12:00:00 AM EDT eCW1 ([facility]) 24 HR Nicotine 0.875 MG/HR Transdermal Patch [Nicoderm C-Q] 07/25/2020 12:00:00 AM EDT eCW1 ([facility]) 24 HR Nicotine 0.875 MG/HR Transdermal Patch [Nicoderm C-Q] 07/25/2020 12:00:00 AM EDT eCW1 ([facility]) 24 HR Nicotine 0.875 MG/HR Transdermal Patch [Nicoderm C-Q] 07/25/2020 12:00:00 AM EDT eCW1 ([facility]) 24 HR Nicotine 0.875 MG/HR Transdermal Patch [Nicoderm C-Q] 07/25/2020 12:00:00 AM EDT eCW1 ([facility]) 24 HR Nicotine 0.875 MG/HR Transdermal Patch [Nicoderm C-Q] 07/25/2020 12:00:00 AM EDT eCW1 ([facility]) 24 HR Nicotine 0.875 MG/HR Transdermal Patch [Nicoderm C-Q] 07/25/2020 12:00:00 AM EDT eCW1 ([facility]) 24 HR Nicotine 0.875 MG/HR Transdermal Patch [Nicoderm C-Q] 07/25/2020 12:00:00 AM EDT eCW1 ([facility]) 24 HR Nicotine 0.875 MG/HR Transdermal Patch [Nicoderm C-Q] 07/25/2020 12:00:00 AM EDT eCW1 ([facility]) 24 HR Nicotine 0.875 MG/HR Transdermal Patch [Nicoderm C-Q] 07/25/2020 12:00:00 AM EDT eCW1 ([facility]) 24 HR Nicotine 0.875 MG/HR Transdermal Patch [Nicoderm C-Q] 07/25/2020 12:00:00 AM EDT eCW1 ([facility]) 24 HR Nicotine 0.875 MG/HR Transdermal Patch [Nicoderm C-Q] 07/25/2020 12:00:00 AM EDT eCW1 ([facility]) 24 HR Nicotine 0.875 MG/HR Transdermal Patch [Nicoderm C-Q] 07/25/2020 12:00:00 AM EDT eCW1 ([facility]) 24 HR Nicotine 0.875 MG/HR Transdermal Patch [Nicoderm C-Q] 07/25/2020 12:00:00 AM EDT eCW1 ([facility]) 24 HR Nicotine 0.875 MG/HR Transdermal Patch [Nicoderm C-Q] 07/25/2020 12:00:00 AM EDT eCW1 ([facility]) 24 HR Nicotine 0.875 MG/HR Transdermal Patch [Nicoderm C-Q] 07/25/2020 12:00:00 AM EDT eCW1 ([facility]) 24 HR Nicotine 0.875 MG/HR Transdermal Patch [Nicoderm C-Q] 07/25/2020 12:00:00 AM EDT eCW1 ([facility]) 24 HR Nicotine 0.875 MG/HR Transdermal Patch [Nicoderm C-Q] 07/25/2020 12:00:00 AM EDT eCW1 ([facility]) 24 HR Nicotine 0.875 MG/HR Transdermal Patch [Nicoderm C-Q] 07/25/2020 12:00:00 AM EDT eCW1 ([facility]) 24 HR Nicotine 0.875 MG/HR Transdermal Patch [Nicoderm C-Q] 07/25/2020 12:00:00 AM EDT eCW1 ([facility]) 24 HR Nicotine 0.875 MG/HR Transdermal Patch [Nicoderm C-Q] 07/25/2020 12:00:00 AM EDT eCW1 ([facility]) 24 HR Nicotine 0.875 MG/HR Transdermal Patch [Nicoderm C-Q] 07/25/2020 12:00:00 AM T eCW1 ([facility]) Lidocaine 5 % External Patch (LIDODERM) 07/16/2020 12:00:00 AM [facility] sennosides, ASSISTED 8.6 MG Oral Tablet 07/15/2020 10:00:00 PM [facility] Lactulose 667 MG/ML Oral Solution 07/13/2020 12:00:00 AM [facility] sodium chloride (preservative free) 0.9 % flush 3 mL 05:00:00 PM [facility] sodium chloride 0.9 % bag 3-20 mL 07/04/2020 12:29:48 PM [facility] Furosemide 20 MG Oral Tablet 06/20/2020 12:00:00 AM [facility] Ibuprofen 600 MG Oral Tablet 06/20/2020 12:00:00 AM [facility] Calcium Carbonate 500 MG Chewable Tablet 06/19/2020 04:15:00 AM [facility] Famotidine 20 MG Oral Tablet 06/19/2020 04:07:06 AM [facility] Thiamine 100 MG Oral Tablet 06/19/2020 12:00:00 AM [facility].6 MG Oral Tablet 06/19/2020 12:00:00 AM [facility] Lactulose 667 MG/ML Oral Solution 06/19/2020 12:00:00 AM [facility] hypromellose 25 MG/ML Ophthalmic Solution 06/19/2020 12:00:00 AM [facility] Folic Acid 1 MG Oral Tablet 06/19/2020 12:00:00 AM [facility] Docusate Sodium 100 MG Oral Capsule 06/19/2020 12:00:00 AM [facility] carvedilol 6.25 MG Oral Tablet 06/19/2020 12:00:00 AM [facility] sennosides, ASSISTED 8.6 MG Oral Tablet 06/12/2020 10:00:00 PM [facility] hypromellose 25 MG/ML Ophthalmic Solution 06/12/2020 09:53:35 AM ED [facility] torsemide 20 MG Oral Tablet 06/12/2020 12:00:00 AM EDT [facility] Spironolactone 25 MG Oral Tablet 06/12/2020 12:00:00 AM EDT [facility] Spironolactone 25 MG Oral Tablet 03/15/2020 12:00:00 AM EST [facility] torsemide 20 MG Oral Tablet 03/15/2020 12:00:00 AM EST [facility] 24 HR metoprolol succinate 50 MG Extended Release Oral Tablet 02/21/2020 12:00:00 AM EST [facility] Benazepril hydrochloride 20 MG / Hydrochlorothiazide 2 5 MG Oral Tablet 02/21/2020 12:00:00 AM EST [facility] Ergocalciferol [id number] UNT Oral Capsule 01/25/2020 12:00:00 AM EST [facility] Ergocalciferol 40273 UNT Oral Capsule [Drisdol] 01/24/2020 12:00:00 AM EST eCW1 ([facility]) Ergocalciferol [id number] UNT Oral Capsule [Drisdol] 01/24/2020 12:00:00 AM EST eCW1 ([facility]ly [facility]) Ergocalciferol [id number] UNT Oral Capsule [Drisdol] 01/24/2020 12:00:00 AM EST eCW1 ([facility]ly [facility]) Ergocalciferol [id number] UNT Oral Capsule [Drisdol] 01/24/2020 12:00:00 AM EST eCW1 ([facility]) Ergocalciferol [id number] UNT Oral Capsule [Drisdol] 01/24/2020 12:00:00 AM EST eCW1 ([facility]) 24 HR metoprolol succinate 50 MG Extended Release Oral Tablet 01/13/2020 12:00:00 AM EST eCW1 ([facility]) 24 HR metoprolol succinate 50 MG Extended Release Oral Tablet 01/13/2020 12:00:00 AM EST W1 ([facility]) 24 HR metoprolol succinate 50 MG Extended Release Oral Tablet 01/13/2020 12:00:00 AM EST eCW1 ([facility]) 24 HR metoprolol succinate 50 MG Extended Release Oral Tablet 01/13/2020 12:00:00 AM EST eCW1 ([facility]) 24 HR metoprolol succinate 50 MG Extended Release Oral Tablet 01/13/2020 12:00:00 AM EST eCW1 ([facility]) 24 HR metoprolol succinate 50 MG Extended Release Oral Tablet 01/13/2020 12:00:00 AM EST eCW1 ([facility]) pantoprazole 40 MG Delayed Release Oral Tablet 01/13/2020 12:00:00 AM EST [facility] Nadolol 20 MG Oral Tablet 06/06/2016 12:00:00 AM [facility] 24 HR metoprolol succinate 50 MG Extended Release Oral Tablet [facility] torsemide [address] [facility] Metoprolol Tartrate [address] [facility] Benazepril hydrochloride 20 MG / Hydrochlorothiazide 25 MG Oral Tab [address] [facility]
[2021-01-24] MEDS ORDERED: dexameTHASONE 20MG/5ML VIAL (J1100 PER 1MG) IV ONE (13:20)
[2021-01-24] MEDS ORDERED: ACETAMINOPHEN TAB 650MG DOSE (2X325MG) PO ONE (13:20)
[2021-01-24] MEDS ORDERED: DEXTROSE 50% 50 ML SYRINGE IV PRN (13:30)
[2021-01-24] MEDS ORDERED: GLUCAGON INJ 1MG VIAL SC PRN (13:30)
[2021-01-24] MEDS ORDERED: MOM 30ML SUSPENSION UDC PO PRN (13:30)
[2021-01-24] MEDS ORDERED: MAALOX 30 ML SUSP *UDC PO PRN (13:30)
[2021-01-24] MEDS ORDERED: ACETAMINOPHEN TAB 650MG DOSE (2X325MG) PO PRN (13:30)
[2021-01-24] MEDS ORDERED: GLUCOSE 4GM CHEW TABLET PO PRN (13:30)
[2021-01-24] MEDS ORDERED: HOME MED LIST COMPLETE! XX SCH (14:10)
[2021-01-24] MEDS ORDERED: hydrOXYzine 25 MG TAB PO PRN (16:15)
--- NOTE | 2021-01-24 16:21 | HPEPDOC ---
[facility] Medical History & Physical Date of Admission Jan 24, 2021 Date of Service: Jan 24, 2021 History and Physical Chief complaint: Who presented to the ER with complaints of shortness of breath History of present illness: Patient is a 60-year-old male with a PMHx Cirrhosis (complicated with recurrent asities, hepatic encephalopathy), Hepatitis C (Treated by Dr. Osorio ), Hx of IVDA, DLP, NIDDM2, CKD3, Chronic LE edema, Asymptomatic gallstones, Vitamin D deficiency, Hx of Upper GI / GERD, who presented to the ER with complaint of shortness of breath. Patient reports that he gets regularly scheduled paracentesis completed every Thursday. Last Thursday. He reported was a holiday, and unfortunately did not get a paracentesis completed. Patient reports that over the last 6 days hes been experience and worsening shortness of breath, with some cough without any sign ificant sputum production. Patient denies any fevers at home but does report chills. He reports some nausea without vomiting. Denies any abdominal pain consultation, diarrhea, or urinary discomfort. Reports his appetite is poor and his weight has had an increase. Patient does report receiving both doses of the COVID19 vaccine. Past Medical History: Cirrhosis (complicated with recurrent asities, hepatic encephalopathy), Hepatitis C (Treated by Dr. 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 Review of Systems: 10 point review of systems complete, all negative otherwise stated in HPI Physical exam: - Vitals: BP [126/78], HR [96], RR [18], Sat [97%RA], Temp [100.2F] - General: Lying in bed, appears short of breath, Speaking in full sentences, AAOx3 - HEENT: NC, AT, PERRLA - CVS: RRR, +S1S2 - Lungs: Fair air entry bilaterally, No appreciable wheezing / rales / rhonchi - Abdomen: Soft, Non-distended, significantly distended - Extremities: 1-2+ pitting edema bilaterally - Neuro: No focal motor or sensory deficit - Skin: No visible rashes Labs: See below Imaging: CXR 01/24: No acute pulmonary disease. EKG: See below Assessment and Plan: Shortness of breath - possibly 2/2 multifactorial etiology, possibly 2/2 ascites, possibly 2/2 COVID19 - Patient presented to the ER after he had missed last weeks paracentesis - Patient is saturating well on room air at 97% - See below Decompensated Cirrhosis - Patient has a history of recurrent ascites and hepatic encephalopathy - Clinically physical reveals evidence of abdominal distention - Will continue with oral diuretic therapy; Torsemide / Spironolactone - c/w Lactulose - Will get IR guided paracentesis; will send fluid for analysis - Will consent patient for albumin infusion as required COVID19 - Currently patient appears to be saturating well on room air - Patient has received a dose of dexamethasone in the ER - Will start Mucinex / Acapella / Incentive spirometry Hyponatremia (mild) - likely 2/2 hypotonic hypervolemic etiology - Will continue with paracentesis and diuretics as stated above Hepatitis C - Hx of IVDA - s/p treatment with Dr. Osorio in 2017 DLP - Currently not on any medications NIDDM2 - Will start ISS CKD3 - Cr baseline of 1.3-1.9 - Cr currently appears at baseline Anxiety - c/w Hydroxyzine Chronic LE edema Asymptomatic gallstones Vitamin D deficiency - c/w Supplementation Hx of Upper GI / GERD - c/w Protonix DVT prophylaxis - Will start TEDs/Sequentials Vital Signs Vital Signs Date Time Temp Pulse Resp B/P (MAP) Pulse Ox O2 Delivery O2 Flow Rate FiO2 01/24/21 15:45 100.2 96 18 126/78 (94) 97 01/24/21 15:22 Room Air 01/24/21 11:23 3.0 Laboratory Data Labs 24H Laboratory Tests 2 01/24/21 10:45: Immature Granulocyte % (Auto) 0.6, Neutrophils (%) (Auto) 72.5H, Lymphocytes (%) (Auto) 6.0L, Monocytes (%) (Auto) 18.4H, Eosinophils (%) (Auto) 2.2, Basophils (%) (Auto) 0.3, Neutrophils # (Auto) 4.9, Lymphocytes # (Auto) 0.4L, Monocytes # (Auto) 1.3H, Eosinophils # (Auto) 0.2, Basophils # (Auto) 0.0, Nucleated Red Blood Cells % (auto) 0.0, Immature Platelet Fraction 4.1, Prothrombin Time 15.8H, Prothromb Time International Ratio 1.21, Activated Partial Thromboplast Time 33.4, Blood Gas Bicarbonate Standard 24.2, Venous Blood pH 7.453H, Venous Blood Partial Pressure CO2 33.7L, Venous Blood Partial Pressure O2 83.9H, Venous Blood Total Carbon Dioxide 24.1, Venous Blood HCO3 23.1, Venous Blood Oxygen Saturation 96.4H, Venous Blood Base Excess -0.4, Anion Gap 8, Glomerular Filtration Rate 50.4, Lactic Acid Level 1.5, Calcium Level 7.9L, Total Bilirubin 1.5H, Direct Bilirubin 0.9H, Aspartate Amino Transf (AST/SGOT) 39H, Alanine Aminotransferase (ALT/SGPT) 21, Alkaline Phosphatase 116, Total Protein 7.1, Albumin 2.2L, Albumin/Globulin Ratio 0.4, Lipase 238 01/24/21 12:35: Urine Color YELLOW, Urine Appearance CLEAR, Urine pH 5.0, Urine Specific [place] 1.011, Urine Protein NEGATIVE, Urine Glucose (UA) NEGATIVE, Urine Ketones NEGATIVE, Urine Blood 1+H, Urine Nitrite NEGATIVE, Urine Bilirubin NEGATIVE, Urine Urobilinogen 2.0H, Urine Leukocyte Esterase NEGATIVE, Urine WBC (Auto) 1, Urine RBC (Auto) 0, Urine Hyaline Casts (Auto) 4, Urine Bacteria (Auto) NEGATIVE, Urine Squamous Epithelial Cells 0, Urine Mucus (Auto) SMALL, Urine Sperm (Auto) CBC/BMP Laboratory Tests 01/24/21 10:45 Microbiology Microbiology 01/24/21 Blood Culture, Received Pending 01/24/21 Respiratory Virus Panel (PCR) ([facility]) - Final, Complete SARS-CoV-2 (COVID 19) 01/24/21 Blood Culture, Received Pending Home Medications Scheduled Carvedilol (Carvedilol) 12.5 Mg Tablet, 12.5 MG PO BID Pantoprazole Sodium (Pantoprazole Sodium) 40 Mg Tablet.dr, 40 MG PO DAILY Potassium Chloride (Potassium Chloride) 10 Meq Tablet.er, 10 MEQ PO BID Spironolactone (Spironolactone) 25 Mg Tablet, 50 MG PO DAILY Torsemide (Torsemide) 20 Mg Tablet, 20 MG PO DAILY Scheduled PRN Hydroxyzine HCl (Hydroxyzine HCl) 25 Mg Tablet, 25 MG PO Q8HP PRN for ITCHING Lactulose (Lactulose) 10 Gm/15 Ml Solution, 15 ML PO TID PRN for CONSTIPATION Allergies Coded Allergies: No Known Allergies (Unverified , 07/27/20) MARY KAY PAULINO MD Jan 24, 2021 16:21
[2021-01-24] MEDS: HumaLOG INSULIN (NovoLOG) PER UNIT SC SCH (17:30)
[2021-01-24 17:48] LABS: SPEC. GRAVITY BODY FLUIDS 1.011 (NOT ESTABLISHED)
[2021-01-24 18:01] LABS: SOURCE, BODY FLUID ALBUMIN ASCITES; SOURCE, BODY FLUID GLUCOSE ASCITES; SOURCE, BODY FLUID TOT PROTEIN ASCITES; TOTAL PROTEIN, BODY FLUID 1.3 G/DL (NOT ESTABLISHED)
[2021-01-24 18:27] LABS: APPEARANCE, BODY FLUID CLEAR (CLEAR); ASCITES FL COLOR PALE YELLOW (COLORLESS); SOURCE, BODY FLUID ASCITES
--- NOTE | 2021-01-24 20:31 | ECGEPIP ---
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
[2021-01-24] MEDS ORDERED: HumaLOG INSULIN (NovoLOG) PER UNIT SC SCH (21:00)
[2021-01-24] MEDS: LACTULOSE 20 GM/30 ML SYRUP UD PO SCH (22:08)
[2021-01-24] MEDS: guaiFENesin ER 600 MG TAB PO SCH (22:18)
[2021-01-24] MEDS: DOCUSATE SODIUM 100MG CAPSULE PO SCH (22:18)
[2021-01-24 22:19] VITALS: BP 145/72
[2021-01-24] MEDS: CARVedilol 12.5 MG TAB PO SCH (22:19)
[2021-01-24 22:24] VITALS: BP 119/71
[2021-01-24 22:25] VITALS: BP 119/71
[2021-01-24 23:00] VITALS: BP 112/67
[2021-01-25 02:10] VITALS: BP 108/59
[2021-01-25 04:00] VITALS: BP 118/56
[2021-01-25 04:44] LABS: HEMATOCRIT 27.3 % (42.0-52.0); LYMPH # 0.2 10^3/uL (1.5-5.0); LYMPH % 6.1 % (24.0-44.0); MEAN CORPUSCULAR HEMOGLOBIN 28.8 pg (27.0-33.0); MEAN CORPUSCULAR VOLUME 87.5 fl (80.0-96.0); MONO # 0.3 10^3/uL (0.0-0.8); MONO % 7.3 % (2.0-8.0); NEUTROPHILS # 3.1 10^3/uL (1.5-8.5); RED BLOOD COUNT 3.12 10^6/uL (4.30-6.10); WHITE BLOOD COUNT 3.6 10^3/uL (4.0-10.0)
[2021-01-25 05:05] LABS: CALCIUM LEVEL 7.6 MG/DL (8.8-10.2); CREATININE FOR GFR 1.66 MG/DL (0.70-1.30); GLOMERULAR FILTRATION RATE 45.2 (>49); MAGNESIUM LEVEL 1.6 MG/DL (1.8-2.4); POTASSIUM SERUM 3.7 MEQ/L (3.5-5.1)
[2021-01-25 05:07] LABS: PLATELET COUNT, AUTOMATED 21 10^3/uL (150-450)
[2021-01-25 08:39] VITALS: BP 109/58
[2021-01-25] MEDS: CARVedilol 12.5 MG TAB PO SCH (08:43)
[2021-01-25] MEDS: guaiFENesin ER 600 MG TAB PO SCH (08:43)
[2021-01-25] MEDS: LACTULOSE 20 GM/30 ML SYRUP UD PO SCH (08:44)
[2021-01-25] MEDS: DOCUSATE SODIUM 100MG CAPSULE PO SCH (08:44)
[2021-01-25] MEDS: HumaLOG INSULIN (NovoLOG) PER UNIT SC SCH (08:47)
[2021-01-25] MEDS ORDERED: TORSEMIDE 20 MG TAB PO SCH (09:00)
[2021-01-25] MEDS ORDERED: PANTOPRAZOLE 40MG TAB (PROTONIX) PO SCH (09:00)
[2021-01-25] MEDS ORDERED: SPIRONOLACTONE 50 MG TAB PO SCH (09:00)
[2021-01-25] MEDS ORDERED: MUCI600T31 PO (09:20)
--- NOTE | 2021-01-25 15:14 | DS.PDOC ---
Discharge Summary General Date of Admission Jan 24, 2021 at 13:26 Date of Discharge 01/25/2021 Discharge Summary PROCEDURES PERFORMED DURING STAY: Paracentesis 01/24 with removal of 5500 cc of fluid ADMITTING DIAGNOSES / DISCHARGE DIAGNOSES: Shortness of breath - possibly 2/2 multifactorial etiology, possibly 2/2 ascites, possibly 2/2 COVID19 Decompensated Cirrhosis COVID19 Hyponatremia (mild) - likely 2/2 hypotonic hypervolemic etiology Hepatitis C DLP NIDDM2 CKD3 Anxiety Chronic LE edema Asymptomatic gallstones Vitamin D deficiency Hx of Upper GI / GERD DVT prophylaxis COMPLICATIONS/CHIEF COMPLAINT: Shortness of breath HISTORY OF PRESENT ILLNESS: Patient is a 60-year-old male with a PMHx Cirrhosis (complicated with recurrent asities, hepatic encephalopathy), Hepatitis C (Treated by Dr. Osorio 2016), Hx of IVDA, DLP, NIDDM2, CKD3, Chronic LE edema, Asymptomatic gallstones, Vitamin D deficiency, Hx of Upper GI / GERD, who presented to the ER with complaint of shortness of breath. In the ER, patient was found to have a significantly distended abdomen after he had missed a paracentesis that when he was regular scheduled for because IR was not available last Thursday. Patient was admitted to the hospitalist service for further evaluation and treatment. Patient was seen and examined at the bedside. Currently, he denies any nausea, vomiting, abdominal pain, diarrhea, or urinary discomfort. Patient does report some cough without any significant shortness of breath. HOSPITAL COURSE: Shortness of breath - possibly 2/2 multifactorial etiology, possibly 2/2 ascites, possibly 2/2 COVID19 - Patient presented to the ER after he had missed last weeks paracentesis - Currently patient's breathing is doing better and he remains saturating well on room air at 97% - See below Decompensated Cirrhosis - Patient has a history of recurrent ascites and hepatic encephalopathy - Currently patient's abdomen is no longer distended and his breathing has essentially returned to baseline - s/p IR guided paracentesis; removal of 5500 mL of fluid - s/p 3 vials of albumin post procedure - c/w Torsemide / Spironolactone / Lactulose COVID19 - Patient relates asymptomatic, denies any significant chest breath, but does report some cough - Patient is saturating well on room air at 96% - Patient has received a dose of dexamethasone in the ER - c/w Mucinex / Acapella / Incentive spirometry - Patient is not hypoxic and would benefit from receiving monoclonal antibodies - Patient is consented for monoclonal antibody infusion and will receive in today as an outpatient - Discussed risks and benefits of monoclonal antibodies; patient has signed consent paperwork Thrombocytopenia - likely 2/2 cirrhosis - History of chronic thrombocytopenia - No evidence of bleeding Normocytic anemia - Hg baseline of ~9 - Hg appears to be at baseline - No evidence of bleeding Hyponatremia (mild) - likely 2/2 hypotonic hypervolemic etiology - c/w Diuresis based on outpatient regimen Hepatitis C - Hx of IVDA - s/p treatment with Dr. Osorio in 2017 DLP - Currently not on any medications NIDDM2 - c/w ISS CKD3 - Cr baseline of 1.3-1.9 - Cr currently appears at baseline Anxiety - c/w Hydroxyzine Chronic LE edema Asymptomatic gallstones Vitamin D deficiency - c/w Supplementation Hx of Upper GI / GERD - c/w Protonix DVT prophylaxis - c/w TEDs/Sequentials DISCHARGE MEDICATIONS: Please see below. ALLERGIES: Please see below. PHYSICAL EXAMINATION ON DISCHARGE: Vitals (See below) General: Lying in bed, appears comfortable, AAOx3 HEENT: NC, AT CVS: RRR, +S1S2 Lungs: Fair air entry b/l, mild wheezing. No evidence of rhonchi or crackles Abdomen: Soft, no longer as distended, nontender Extremities: LE reveal 2+ edema, - Calf tenderness LABORATORY DATA: Please see below. IMAGING: CXR 01/24: No acute pulmonary disease. Paracentesis 01/24: Removal of 5500 cc of fluid ACTIVITY: [As tolerated]. DISCHARGE PLAN: Follow-up with primary care provider within the next 7 days Remain compliant with treatment plan and medications Return to the ER if you experience any problems DISPOSITION: Home, Self-Care. DISCHARGE CONDITION: [Stable]. TIME SPENT ON DISCHARGE: 35 minutes. Vital Signs/I&Os Vital Signs Date Time Temp Pulse Resp B/P (MAP) Pulse Ox O2 Delivery O2 Flow Rate FiO2 01/25/21 08:39 98.3 77 16 109/58 (75) 96 Room Air 01/24/21 11:23 3.0 I&O- Last 24 Hours up to 6 AM 01/25/21 06:00 Intake Total 350.0 ml Output Total 5500 ml Balance -5150.0 ml Laboratory Data Labs 24H Laboratory Tests 2 01/24/21 16:05: Body Fluid Source ASCITES, Body Fluid Color PALE YELLOW, Body Fluid Appearance CLEAR, Body Fluid Specific [place] 1.011, Body Fluid WBC (Auto) 51H, Body Fluid RBC (Auto) < 2, Body Fluid Mononuclear Cells % Auto 96.0H, Fluid Polymorphonucle ar Cell % Auto 4.0H, Body Fluid Glucose Source ASCITES, Body Fluid Glucose 180, Body Fluid Protein Source ASCITES, Body Fluid Total Protein 1.3, Body Fluid Albumin Source ASCITES, Body Fluid Albumin 0.2 01/24/21 19:59: Bedside Glucose (Misc Panel) 241H 01/24/21 22:03: Bedside Glucose (Misc Panel) 245H 01/25/21 04:30: Immature Granulocyte % (Auto) 0.6, Neutrophils (%) (Auto) 86.0H, Lymphocytes (%) (Auto) 6.1L, Monocytes (%) (Auto) 7.3, Eosinophils (%) (Auto) 0.0, Basophils (%) (Auto) 0.0, Neutrophils # (Auto) 3.1, Lymphocytes # (Auto) 0.2L, Monocytes # (Auto) 0.3, Eosinophils # (Auto) 0.0, Basophils # (Auto) 0.0, Nucleated Red Blood Cells % (auto) 0.0, Anion Gap 8, Glomerular Filtration Rate 45.2L, Calcium Level 7.6L, Magnesium Level 1.6L CBC/BMP Laboratory Tests 01/25/21 04:30 FSBS Laboratory Tests Test 01/24/21 19:59 01/24/21 22:03 Range/Units Bedside Glucose (Misc Panel) 241 245 80-115 MG/DL Microbiology Microbiology 01/24/21 Acid Fast Stain, Received Pending 01/24/21 Mycobacterial Culture, Received Pending 01/24/21 Fungal Smear, Received Pending 01/24/21 Fungal Culture, Received Pending 01/24/21 Gram Stain - Final, Resulted 01/24/21 Body Fluid Culture, Resulted Pending 01/24/21 Blood Culture - Preliminary, Resulted No growth after 24 hours . All specim... 01/24/21 Respiratory Virus Panel (PCR) ([facility]) - Final, Complete SARS-CoV-2 (COVID 19) 01/24/21 Blood Culture - Preliminary, Resulted No growth after 24 hours . All specim... Discharge Medications Scheduled Carvedilol (Carvedilol) 12.5 Mg Tablet, 12.5 MG PO BID, (Reported) Guaifenesin (Mucinex) 600 Mg Tab.er.12h, 1,200 MG PO BID Pantoprazole Sodium (Pantoprazole Sodium) 40 Mg Tablet.dr, 40 MG PO DAILY, (Reported) Potassium Chloride (Potassium Chloride) 10 Meq Tablet.er, 10 MEQ PO BID, (Reported) Spironolactone (Spironolactone) 25 Mg Tablet, 50 MG PO DAILY, (Reported) Torsemide (Torsemide) 20 Mg Tablet, 20 MG PO DAILY, (Reported) Scheduled PRN Hydroxyzine HCl (Hydroxyzine HCl) 25 Mg Tablet, 25 MG PO Q8HP PRN for ITCHING, (Reported) Lactulose (Lactulose) 10 Gm/15 Ml Solution, 15 ML PO TID PRN for CONSTIPATION, (Reported) Allergies Coded Allergies: No Known Allergies (Unverified , 07/27/20) MARY KAY PAULINO MD Jan 25, 2021 15:14
--- NOTE | 2021-01-25 17:38 | REP ---
INDICATION: Paracentesis. COMPARISON: None. TECHNIQUE: The procedure was performed under the direct supervision of Dr. Craig. The risks and benefits of the procedure were explained to the patient and informed consent was obtained. The largest pocket of fluid was localized in the left flank using ultrasound guidance. The skin was prepped and draped in a sterile fashion. 6 mL of 1% lidocaine was used as a local anesthetic. An 8-[place] multi side-hole catheter was inserted using trocar technique.5500 mL of yellow fluid was withdrawn with a sample sent to the lab for analysis. Estimated blood loss: Less than 1 mL The patient tolerated the procedure well and there were no immediate complications. After the appropriate amount of monitored convalescence, the patient was discharged from the department. FINDINGS: None IMPRESSION: Ultrasound-guided paracentesis [id number] mL of yellow fluid. <Electronically signed by Kermit Kent > 01/25/21 1710 <Electronically signed by Ernie Craig > 01/25/21 [id number]
== END 2021-01-25 11:08 | disposition home or self-care (01) | DRG 264 ==
LOC: M ED 10:22 → M ED INP 13:26 → ENRESERV 18:20 → M ICU 21:54
PROVIDERS: ADMIT Internal Medicine; ATTEND Internal Medicine
PROC: 0W9G3ZX Drainage of Peritoneal Cavity, Percutaneous Approach, Diagnostic (ICD-10-PCS; 2021-01-24)
PROC: 3E0333Z Introduction of Anti-inflammatory into Peripheral Vein, Percutaneous Approach (ICD-10-PCS; principal; 2021-01-24 16:00)
DX: K74.60 Unspecified cirrhosis of liver (principal); U07.1 COVID-19; R18.8 Other ascites; E87.1 Hypo-osmolality and hyponatremia; E11.9 Type 2 diabetes mellitus without complications; D63.1 Anemia in chronic kidney disease; N18.30 Chronic kidney disease, stage 3 unspecified; E78.5 Hyperlipidemia, unspecified; E55.9 Vitamin D deficiency, unspecified; K21.9 Gastro-esophageal reflux disease without esophagitis; F17.210 Nicotine dependence, cigarettes, uncomplicated; B19.20 Unspecified viral hepatitis C without hepatic coma; F41.9 Anxiety disorder, unspecified; Z79.899 Other long term (current) drug therapy

== ENCOUNTER 2021-01-25 10:01 | Outpatient (CLI) | payer OTHER ==
[~2021-01-25 10:01] MED LIST changes: +MUCI600T31 PO
[2021-01-25] MEDS ORDERED: methylPREDNISolone 125MG 2ML VIAL IV PRN (10:10)
[2021-01-25] MEDS ORDERED: NS 1,000 ML IV SCH (10:10)
[2021-01-25] MEDS ORDERED: ALBUTEROL SULFATE 2.5 MG/0.5 ML INH NEB SOLN INH PRN (10:10)
[2021-01-25] MEDS ORDERED: ACETAMINOPHEN TAB 650MG DOSE (2X325MG) PO PRN (10:10)
[2021-01-25] MEDS ORDERED: EPINEPHrine INJ 1 MG/ML 1ML AMP IM PRN (10:10)
[2021-01-25] MEDS ORDERED: diphenhydrAMINE 50MG/ML VIAL (J1200) IV PRN (10:10)
[2021-01-25] MEDS ORDERED: ALBUTEROL 90 MCG/ACT 8GM HFA INHALER INH PRN (10:10)
[2021-01-25] MEDS ORDERED: CASIRIVIMAB/IMDEVIMAB 1,200 MG in NS 250 ML IV ONE (11:00)
[2021-01-25 12:00] VITALS: BP 105/62
[2021-01-25 12:30] VITALS: BP 101/59
[2021-01-25 13:00] VITALS: BP 111/58
[2021-01-25 13:30] VITALS: BP 115/61
[2021-01-25 14:00] VITALS: BP 130/69
[2021-01-25 14:30] VITALS: BP 109/63
== END 2021-01-25 15:45 | disposition home or self-care (01) ==
LOC: M ICU 10:01 → M OPCLI4PR 10:01
PROVIDERS: ATTEND Internal Medicine
DX: U07.1 COVID-19 (principal)

== ENCOUNTER → 2021-02-05 | Outpatient (CLI) | payer OTHER ==
[~2021-02-05] MED LIST changes: +NICO21DI6 TD
[2021-02-05 14:08] LABS: PLATELET COUNT, AUTOMATED 72 10^3/uL (150-450)
[2021-02-05 14:43] VITALS: BP 118/68
== END ==
LOC: M IRPRO 13:02
PROVIDERS: ATTEND Family Medicine
DX: R18.8 Other ascites (principal)

== ENCOUNTER → 2021-02-14 | Outpatient (CLI) | payer OTHER ==
[2021-02-14 14:34] VITALS: BP 105/55
== END ==
LOC: M IRPRO 13:27
PROVIDERS: ATTEND Family Medicine
DX: K70.31 Alcoholic cirrhosis of liver with ascites (principal)

== ENCOUNTER → 2021-02-21 | Outpatient (CLI) | payer OTHER ==
[~2021-02-21] MED LIST changes: -NICO21DI6 TD; +SODIUM BICARBONATE 8.4% INJ 50MEQ 50 ML VIAL As Ordered ONE
[2021-02-21 10:10] VITALS: BP 111/54
--- NOTE | 2021-02-21 16:46 | REP ---
INDICATION: ASCITES. COMPARISON: None. TECHNIQUE: The procedure was performed under the direct supervision of Dr. Craig. The risks and benefits of the procedure were explained to the patient and informed consent was obtained. The largest pocket of fluid was localized in the right flank using ultrasound guidance. The skin was prepped and draped in a sterile fashion. 4 mL of buffered 1% lidocaine was used as a local anesthetic. An 8-[place] multi side-hole catheter was inserted using trocar technique.3700 mL of yellow fluid was withdrawn and discarded. Estimated blood loss: Less than 1 mL The patient tolerated the procedure well and there were no immediate complications. After the appropriate amount of monitored convalescence, the patient was discharged from the department. FINDINGS: None IMPRESSION: Ultrasound-guided paracentesis [id number] mL of yellow fluid. <Electronically signed by Kermit Kent > 02/21/21 1642 <Electronically signed by Ernie Craig > 02/21/21 1648
== END ==
LOC: M IRPRO 09:28
PROVIDERS: ATTEND Family Medicine
DX: K70.31 Alcoholic cirrhosis of liver with ascites (principal)

== ENCOUNTER → 2021-03-15 | Outpatient (CLI) | payer OTHER ==
[~2021-03-15] MED LIST changes: -SODIUM BICARBONATE 8.4% INJ 50MEQ 50 ML VIAL As Ordered ONE
[2021-03-15 10:50] VITALS: BP 104/72
== END ==
LOC: M IRPRO 09:57
PROVIDERS: ATTEND Family Medicine
DX: K70.31 Alcoholic cirrhosis of liver with ascites (principal)

== ENCOUNTER → 2021-03-22 | Outpatient (CLI) | payer OTHER ==
[~2021-03-22] MED LIST changes: +SODIUM BICARBONATE 8.4% INJ 50MEQ 50 ML VIAL As Ordered ONE
[2021-03-22 10:50] VITALS: BP 116/61
== END ==
LOC: M IRPRO 09:45
PROVIDERS: ATTEND Family Medicine
DX: K70.31 Alcoholic cirrhosis of liver with ascites (principal)

== ENCOUNTER → 2021-03-29 | Outpatient (CLI) | payer OTHER ==
[~2021-03-29] MED LIST changes: -SODIUM BICARBONATE 8.4% INJ 50MEQ 50 ML VIAL As Ordered ONE
[2021-03-29 11:06] VITALS: BP 136/69
== END ==
LOC: M IRPRO 09:25
PROVIDERS: ATTEND Family Medicine
DX: K70.31 Alcoholic cirrhosis of liver with ascites (principal)

== ENCOUNTER → 2021-04-05 | Outpatient (CLI) | payer OTHER ==
[~2021-04-05] MED LIST changes: +NICO21DI6 TD; +SODIUM BICARBONATE 8.4% INJ 50MEQ 50 ML VIAL As Ordered ONE
[2021-04-05 10:32] VITALS: BP 118/73
== END ==
LOC: M IRPRO 09:24
PROVIDERS: ATTEND Family Medicine
DX: K70.31 Alcoholic cirrhosis of liver with ascites (principal)

== ENCOUNTER → 2021-04-12 | Outpatient (CLI) | payer OTHER ==
[~2021-04-12] MED LIST changes: -SODIUM BICARBONATE 8.4% INJ 50MEQ 50 ML VIAL As Ordered ONE
[2021-04-12 09:52] VITALS: BP 144/79
== END ==
LOC: M IRPRO 09:46
PROVIDERS: ATTEND Family Medicine
DX: R18.8 Other ascites (principal)

== ENCOUNTER → 2021-04-19 | Outpatient (CLI) | payer OTHER ==
[~2021-04-19] MED LIST changes: +SODIUM BICARBONATE 8.4% INJ 50MEQ 50 ML VIAL As Ordered ONE
[2021-04-19 10:25] VITALS: BP 115/70
== END ==
LOC: M IRPRO 09:40
PROVIDERS: ATTEND Family Medicine
DX: K70.31 Alcoholic cirrhosis of liver with ascites (principal)

== ENCOUNTER → 2021-04-26 | Outpatient (CLI) | payer OTHER ==
[~2021-04-26] MED LIST changes: -SODIUM BICARBONATE 8.4% INJ 50MEQ 50 ML VIAL As Ordered ONE
[2021-04-26 10:20] VITALS: BP 144/83
== END ==
LOC: M IRPRO 10:06
PROVIDERS: ATTEND Family Medicine
DX: K70.31 Alcoholic cirrhosis of liver with ascites (principal); Z53.8 Procedure and treatment not carried out for other reasons

== ENCOUNTER → 2021-05-03 | Outpatient (CLI) | payer OTHER ==
[~2021-05-03] MED LIST changes: +SODIUM BICARBONATE 8.4% INJ 50MEQ 50 ML VIAL As Ordered ONE
[2021-05-03 11:17] VITALS: BP 110/64
== END ==
LOC: M IRPRO 09:16
PROVIDERS: ATTEND Family Medicine
DX: R18.8 Other ascites (principal)

== ENCOUNTER → 2021-05-08 | Outpatient (CLI) | payer OTHER ==
[~2021-05-08] MED LIST changes: -SODIUM BICARBONATE 8.4% INJ 50MEQ 50 ML VIAL As Ordered ONE
== END ==
LOC: M RAD 09:39
PROVIDERS: ATTEND Internal Medicine Gastroenterology
DX: K76.6 Portal hypertension (principal); R18.8 Other ascites

== ENCOUNTER → 2021-05-10 | Outpatient (CLI) | payer OTHER | LOC: M IRPRO 09:06 | PROVIDERS: ATTEND Family Medicine | DX: R18.8 Other ascites (principal); Z53.8 Procedure and treatment not carried out for other reasons ==

== ENCOUNTER → 2021-05-17 | Outpatient (CLI) | payer OTHER ==
[~2021-05-17] MED LIST changes: +SODIUM BICARBONATE 8.4% INJ 50MEQ 50 ML VIAL As Ordered ONE
[2021-05-17 10:50] LABS: HEMATOCRIT 31.5 % (42.0-52.0); HEMOGLOBIN 10.5 g/dl (13.5-17.5); MEAN CORPUSCULAR HEMOGLOBIN 28.8 pg (27.0-33.0); MEAN CORPUSCULAR HGB CONC 33.3 g/dl (32.0-36.5); MEAN CORPUSCULAR VOLUME 86.3 fl (80.0-96.0); RED BLOOD COUNT 3.65 10^6/uL (4.30-6.10); WHITE BLOOD COUNT 4.8 10^3/uL (4.0-10.0)
[2021-05-17 10:52] LABS: PLATELET COUNT, AUTOMATED 30 10^3/uL (150-450)
[2021-05-17 10:58] LABS: INR 1.26; PROTHROMBIN TIME 16.2 SECONDS (12.7-14.5)
[2021-05-17 11:04] LABS: ALBUMIN 2.6 GM/DL (3.2-5.2); CALCIUM LEVEL 8.6 MG/DL (8.8-10.2); CREATININE FOR GFR 1.42 MG/DL (0.70-1.30); GLOMERULAR FILTRATION RATE 54.1 (>49); POTASSIUM SERUM 3.6 MEQ/L (3.5-5.1); TOTAL PROTEIN 7.4 GM/DL (6.4-8.2)
[2021-05-17 13:05] VITALS: BP 142/96
== END ==
LOC: M IRPRO 10:03
PROVIDERS: ATTEND Family Medicine
DX: K74.60 Unspecified cirrhosis of liver (principal); R18.8 Other ascites

== ENCOUNTER → 2021-05-27 | Outpatient (CLI) | payer OTHER ==
[2021-05-27 12:38] LABS: HEMOGLOBIN 10.1 g/dl (13.5-17.5); MEAN CORPUSCULAR HEMOGLOBIN 29.6 pg (27.0-33.0); MEAN CORPUSCULAR HGB CONC 33.7 g/dl (32.0-36.5); RED BLOOD COUNT 3.41 10^6/uL (4.30-6.10); WHITE BLOOD COUNT 3.8 10^3/uL (4.0-10.0)
[2021-05-27 12:39] LABS: PLATELET COUNT, AUTOMATED 32 10^3/uL (150-450)
[2021-05-27 13:27] VITALS: BP 118/62
== END ==
LOC: M IRPRO 11:42
PROVIDERS: ATTEND Family Medicine
DX: R18.8 Other ascites (principal); K74.60 Unspecified cirrhosis of liver

== ENCOUNTER → 2021-07-08 | Outpatient (CLI) | payer OTHER ==
[~2021-07-08] MED LIST changes: -SODIUM BICARBONATE 8.4% INJ 50MEQ 50 ML VIAL As Ordered ONE
[2021-07-08 10:47] VITALS: BP 115/74
== END ==
LOC: M IRPRO 09:39
PROVIDERS: ATTEND Family Medicine
DX: R18.8 Other ascites (principal); K74.60 Unspecified cirrhosis of liver

== ENCOUNTER → 2021-07-19 | Outpatient (CLI) | payer OTHER ==
[~2021-07-19] MED LIST changes: +SODIUM BICARBONATE 8.4% INJ 50MEQ 50 ML VIAL As Ordered ONE
[2021-07-19 10:50] VITALS: BP 154/91
== END ==
LOC: M IRPRO 10:10
PROVIDERS: ATTEND Family Medicine
DX: R18.8 Other ascites (principal); K74.60 Unspecified cirrhosis of liver

== ENCOUNTER → 2021-07-29 | Outpatient (CLI) | payer OTHER ==
[~2021-07-29] MED LIST changes: -SODIUM BICARBONATE 8.4% INJ 50MEQ 50 ML VIAL As Ordered ONE
[2021-07-29 12:00] VITALS: BP 111/67
== END ==
LOC: M IRPRO 10:38
PROVIDERS: ATTEND Family Medicine
DX: K70.31 Alcoholic cirrhosis of liver with ascites (principal)

== ENCOUNTER → 2021-08-08 | Outpatient (CLI) | payer OTHER ==
[2021-08-08 11:02] VITALS: BP 131/67
== END ==
LOC: M IRPRO 10:12
PROVIDERS: ATTEND Family Medicine
DX: R18.8 Other ascites (principal); K74.60 Unspecified cirrhosis of liver

== ENCOUNTER → 2021-08-19 | Outpatient (CLI) | payer OTHER ==
[2021-08-19 11:29] VITALS: BP 121/76
== END ==
LOC: M IRPRO 10:35
PROVIDERS: ATTEND Family Medicine
DX: R18.8 Other ascites (principal); K74.60 Unspecified cirrhosis of liver

== ENCOUNTER → 2021-08-29 | Outpatient (CLI) | payer OTHER ==
[~2021-08-29] MED LIST changes: +SODIUM BICARBONATE 8.4% INJ 50MEQ 50 ML VIAL As Ordered ONE
[2021-08-29 12:50] LABS: HEMATOCRIT 30.5 % (42.0-52.0); HEMOGLOBIN 10.3 g/dl (13.5-17.5); MEAN CORPUSCULAR HEMOGLOBIN 31.6 pg (27.0-33.0); MEAN CORPUSCULAR HGB CONC 33.8 g/dl (32.0-36.5); MEAN CORPUSCULAR VOLUME 93.6 fl (80.0-96.0); RED BLOOD COUNT 3.26 10^6/uL (4.30-6.10); WHITE BLOOD COUNT 6.2 10^3/uL (4.0-10.0)
[2021-08-29 12:52] LABS: PLATELET COUNT, AUTOMATED 48 10^3/uL (150-450)
[2021-08-29 12:58] LABS: INR 1.32; PROTHROMBIN TIME 16.8 SECONDS (12.7-14.5)
[2021-08-29 12:59] LABS: PARTIAL THROMBOPLASTIN TIME 29.3 SECONDS (25.9-37.0)
[2021-08-29 13:12] LABS: ALBUMIN 1.9 GM/DL (3.2-5.2); BILIRUBIN,TOTAL 2.4 MG/DL (0.2-1.0); CALCIUM LEVEL 8.1 MG/DL (8.8-10.2); CREATININE FOR GFR 1.66 MG/DL (0.70-1.30); GLOMERULAR FILTRATION RATE 45.2 (>49); POTASSIUM SERUM 3.3 MEQ/L (3.5-5.1); TOTAL PROTEIN 6.3 GM/DL (6.4-8.2)
[2021-08-29 13:30] VITALS: BP 116/52
== END ==
LOC: M IRPRO 11:00
PROVIDERS: ATTEND Family Medicine
DX: R18.8 Other ascites (principal); K74.60 Unspecified cirrhosis of liver

== ENCOUNTER → 2021-09-09 | Outpatient (CLI) | payer OTHER ==
[~2021-09-09] MED LIST changes: +LIDOCAINE 1% MDV 20ML VIAL As Ordered ONE
[2021-09-09 10:43] VITALS: BP 112/64
== END ==
LOC: M IRPRO 09:59
PROVIDERS: ATTEND Family Medicine
DX: R18.8 Other ascites (principal); K74.60 Unspecified cirrhosis of liver

== ENCOUNTER → 2021-09-20 | Outpatient (CLI) | payer OTHER ==
[~2021-09-20] MED LIST changes: -LIDOCAINE 1% MDV 20ML VIAL As Ordered ONE; -SODIUM BICARBONATE 8.4% INJ 50MEQ 50 ML VIAL As Ordered ONE
[2021-09-20 12:30] VITALS: BP 146/77
== END ==
LOC: M IRPRO 11:36
PROVIDERS: ATTEND Family Medicine
DX: R18.8 Other ascites (principal); K74.60 Unspecified cirrhosis of liver

== ENCOUNTER → 2021-09-30 | Outpatient (CLI) | payer OTHER ==
[~2021-09-30] MED LIST changes: +LIDOCAINE 1% MDV 20ML VIAL As Ordered ONE; +SODIUM BICARBONATE 8.4% INJ 50MEQ 50 ML VIAL As Ordered ONE
[2021-09-30 15:10] VITALS: BP 120/73
== END ==
LOC: M IRPRO 14:08
PROVIDERS: ATTEND Family Medicine
DX: R18.8 Other ascites (principal); K74.60 Unspecified cirrhosis of liver

== ENCOUNTER 2021-10-07 08:11 | Inpatient (IN) | payer OTHER ==
[~2021-10-07] VITALS: Ht 154.9 cm; Wt 92.9 kg
[2021-10-07] VITALS (46 sets, daily range): BP systolic 72–114; BP diastolic 48–66
[~2021-10-07 08:11] MED LIST changes: -LIDOCAINE 1% MDV 20ML VIAL As Ordered ONE; -SODIUM BICARBONATE 8.4% INJ 50MEQ 50 ML VIAL As Ordered ONE
[2021-10-07] MEDS ORDERED: NS 500 ML IV ONE ×2 (08:40→13:45)
[2021-10-07 08:47] LABS: HEMATOCRIT 29.4 % (42.0-52.0); HEMOGLOBIN 9.8 g/dl (13.5-17.5); MEAN CORPUSCULAR HGB CONC 33.3 g/dl (32.0-36.5); MEAN CORPUSCULAR VOLUME 96.1 fl (80.0-96.0); RED BLOOD COUNT 3.06 10^6/uL (4.30-6.10); WHITE BLOOD COUNT 1.6 10^3/uL (4.0-10.0)
[2021-10-07 08:48] LABS: PLATELET COUNT, AUTOMATED 36 10^3/uL (150-450)
[2021-10-07 08:57] LABS: INR 2.18; PROTHROMBIN TIME 24.6 SECONDS (12.7-14.5)
[2021-10-07] MEDS ORDERED: PANTOPRAZOLE 40MG VIAL IV SCH (09:00)
[2021-10-07 09:18] LABS: ALBUMIN 1.2 GM/DL (3.2-5.2); BILIRUBIN,DIRECT 2.9 MG/DL (0.0-0.2); BILIRUBIN,TOTAL 3.4 MG/DL (0.2-1.0); CALCIUM LEVEL 8.2 MG/DL (8.8-10.2); CREATININE FOR GFR 3.85 MG/DL (0.70-1.30); GLOMERULAR FILTRATION RATE 17.1 (>49); POTASSIUM SERUM 3.8 MEQ/L (3.5-5.1); TOTAL PROTEIN 5.3 GM/DL (6.4-8.2)
[2021-10-07 09:24] LABS: RSV AMPLIFICATION NEGATIVE (NEGATIVE)
[2021-10-07] MEDS ORDERED: NS 1,000 ML IV ONE (09:25)
[2021-10-07] MEDS ORDERED: CEFEPIME HCL 2 GM in D5W MINI-BAG PLUS 50 ML IV ONE (09:30)
[2021-10-07] MEDS ORDERED: NOREPINEPHRINE 4 MG/4 ML AMP As Ordered ONE (09:53)
[2021-10-07] MEDS ORDERED: NOREPINEPHRINE/DEXTROSE 8 MG in IV 1 EA IV SCH ×2 (09:55→16:00)
[2021-10-07 09:57] LABS: ANISOCYTOSIS 1+; LYMPHOCYTES 7 % (16-44); METAMYELOCYTES 2 % (0-0); MONOCYTES 2 % (0-5); NEUTROPHILS 82 % (28-66); OVALOCYTES 1+; PLATELET ESTIMATE MARKED DECREASE (NORMAL)
[2021-10-07 09:58] LABS: POLYCHROMASIA 1+
[2021-10-07 10:03] LABS: TEAR DROP CELLS 1+
[2021-10-07 10:15] LABS: ABG BASE EXCESS -13.9 (-2.0-2.0); ABG HCO3 13.4 MEQ/L (22.0-26.0); ABG O2 SATURATION 93.6 % (95.0-99.0); ABG PARTIAL PRESSURE CO2 36.1 mmHg (35.0-45.0); ABG PARTIAL PRESSURE O2 84.9 mmHg (75.0-100.0); ABG STANDARD HCO3 13.6 MEQ/L (22.0-26.0); ABG TOTAL CO2 14.5 MEQ/L (23.0-31.0)
[2021-10-07] MEDS ORDERED: ALBU8.5H INH (10:15)
[2021-10-07 10:17] LABS: ABG pH (ARTERIAL) 7.187 UNITS (7.350-7.450)
[2021-10-07] MEDS ORDERED: HOME MED LIST COMPLETE! XX SCH (10:20)
[2021-10-07] MEDS ORDERED: SODIUM BICARBONATE 8.4% INJ 50 ML SYRINGE As Ordered ONE ×2 (10:46→11:10)
[2021-10-07] MEDS ORDERED: SODIUM BICARBONATE 8.4% INJ 50 ML SYRINGE IV STA ×3 (10:47→13:25)
[2021-10-07] MEDS ORDERED: SODIUM BICARBONATE 150 MEQ in D5W 1,000 ML IV SCH ×3 (10:50→11:16)
[2021-10-07] MEDS ORDERED: LR 500 ML IV ONE ×2 (10:55→11:50)
[2021-10-07] MEDS ORDERED: VASOPRESSIN INJ 20 UNITS in NS 499 ML IV SCH ×2 (11:00→19:00)
[2021-10-07] MEDS ORDERED: VASOPRESSIN INJ 20 UNITS/ML VIAL As Ordered ONE (11:02)
[2021-10-07] MEDS: LR 500 ML IV ONE ×2 (11:19→12:09)
[2021-10-07] MEDS ORDERED: VANCOMYCIN HCL 2,000 MG in D5W 500 ML IV ONE (11:30)
[2021-10-07] MEDS ORDERED: KETAMINE HCL 200 MG/20 ML VIAL As Ordered ONE (12:49)
[2021-10-07] MEDS ORDERED: MIDAZOLAM INJ 2MG/2ML VIAL (J2250 PER 1MG) As Ordered ONE (12:53)
[2021-10-07] MEDS ORDERED: VANCOMYCIN HCL 1,000 MG, VIAL MATE ADAPTER 1 EACH in NS 250 ML IV ONE ×6 (13:00)
[2021-10-07] MEDS ORDERED: MIDAZOLAM INJ 2MG/2ML VIAL (J2250 PER 1MG) IV STA (13:06)
[2021-10-07] MEDS ORDERED: EPINEPHrine 1MG/10ML SYRINGE 1.5IN IV STA ×4 (13:06→13:41)
[2021-10-07] MEDS ORDERED: KETAMINE HCL 200 MG/20 ML VIAL IV ONE (13:10)
[2021-10-07] MEDS ORDERED: ETOMIDATE INJ 20MG/10ML VIAL IV ONE (13:10)
[2021-10-07] MEDS ORDERED: ROCURONIUM BROMIDE 50 MG/5 ML VIAL IV ONE (13:10)
[2021-10-07] MEDS ORDERED: fentaNYL CITRATE 1,000 MCG in NS 80 ML IV SCH (13:30)
[2021-10-07] MEDS: EPINEPHrine HCL INJ 1 MG in D5W 240 ML IV SCH ×2 (13:44→14:47)
[2021-10-07 13:54] LABS: ABG BASE EXCESS -9.1 (-2.0-2.0); ABG HCO3 17.8 MEQ/L (22.0-26.0); ABG O2 SATURATION 99.3 % (95.0-99.0); ABG PARTIAL PRESSURE CO2 42.6 mmHg (35.0-45.0); ABG PARTIAL PRESSURE O2 245.6 mmHg (75.0-100.0); ABG STANDARD HCO3 17.1 MEQ/L (22.0-26.0); ABG TOTAL CO2 19.1 MEQ/L (23.0-31.0)
[2021-10-07 13:56] LABS: ABG pH (ARTERIAL) 7.238 UNITS (7.350-7.450)
[2021-10-07] MEDS ORDERED: OCTREOTIDE ACETATE 100MCG/ML VIAL **SC ADMINISTRATION ONLY SC SCH (14:00)
[2021-10-07 14:43] LABS: BASO % 0.8 % (0.0-1.0); EOS % 1.5 % (0.0-3.0); HEMATOCRIT 26.7 % (42.0-52.0); HEMOGLOBIN 8.6 g/dl (13.5-17.5); LYMPH # 0.1 10^3/uL (1.5-5.0); LYMPH % 5.3 % (24.0-44.0); MEAN CORPUSCULAR HEMOGLOBIN 31.5 pg (27.0-33.0); MEAN CORPUSCULAR HGB CONC 32.2 g/dl (32.0-36.5); MEAN CORPUSCULAR VOLUME 97.8 fl (80.0-96.0); MONO % 0.8 % (2.0-8.0); NEUTROPHILS # 1.2 10^3/uL (1.5-8.5); NEUTROPHILS % 89.3 % (36.0-66.0); RED BLOOD COUNT 2.73 10^6/uL (4.30-6.10); WHITE BLOOD COUNT 1.3 10^3/uL (4.0-10.0)
[2021-10-07 14:48] LABS: PLATELET COUNT, AUTOMATED 26 10^3/uL (150-450)
[2021-10-07 15:10] LABS: INR 2.97; PROTHROMBIN TIME 31.2 SECONDS (12.7-14.5)
[2021-10-07 15:11] LABS: PARTIAL THROMBOPLASTIN TIME 54.8 SECONDS (25.9-37.0)
[2021-10-07 15:14] LABS: APPEARANCE, BODY FLUID HAZY (CLEAR); PERITONEAL FL COLOR YELLOW (COLORLESS); SOURCE, BODY FLUID PERITONEAL
[2021-10-07] MEDS ORDERED: EPINEPHrine 1MG/10ML SYRINGE 1.5IN ONE (15:26)
[2021-10-07] MEDS ORDERED: SODIUM BICARBONATE 8.4% INJ 50 ML SYRINGE ONE (15:26)
[2021-10-07 15:32] LABS: ALBUMIN 1.1 GM/DL (3.2-5.2); ALT/SGPT 29 U/L (12-78); BILIRUBIN,TOTAL 3.2 MG/DL (0.2-1.0); BLOOD UREA NITROGEN 44 MG/DL (7-18); CALCIUM LEVEL 8.2 MG/DL (8.8-10.2); CARBON DIOXIDE LEVEL 14 MEQ/L (21-32); CHLORIDE LEVEL 94 MEQ/L (98-107); CHOLESTEROL LEVEL < 50 MG/DL (< 200); CPK CREATINE PHOSPHOKINASE 426 U/L (39-308); CREATININE FOR GFR 3.72 MG/DL (0.70-1.30); GLOMERULAR FILTRATION RATE 17.8 (>49); GLUCOSE, FASTING 97 MG/DL (70-100); LDH LACTATE DEHYDROGENASE 303 U/L (87-241); POTASSIUM SERUM 3.9 MEQ/L (3.5-5.1); SODIUM LEVEL 122 MEQ/L (136-145); TOTAL PROTEIN 5.6 GM/DL (6.4-8.2); TRIGLYCERIDES LEVEL 144 MG/DL (<150)
[2021-10-07] MEDS ORDERED: DOBUTamine HCL 500,000 MCG in IV 1 EA IV SCH (15:50)
[2021-10-07] MEDS ORDERED: [UNRECOGNIZED DRUG - OTHER] IV SCH (16:10)
[2021-10-07] MEDS ORDERED: FENTANYL DRIP LOCK BOX KEY 1 EACH XX PRN (16:10)
[2021-10-07] MEDS ORDERED: FENTANYL IV SCH (16:10)
[2021-10-07] MEDS ORDERED: EPINEPHrine HCL INJ 4 MG in D5W 996 ML IV SCH (16:30)
[2021-10-07] MEDS ORDERED: EPINEPHrine HCL INJ 1 MG in D5W 240 ML IV SCH (23:00)
== END 2021-10-07 17:28 | disposition expired | DRG 720 ==
LOC: EDBD 08:11 → M ED 08:11 → EDSEX 08:11 → M ED INP 13:45 → M ICU 14:08
PROVIDERS: ADMIT Internal Medicine; ATTEND Internal Medicine Pulmonary Disease
PROC: 03H833Z Insertion of Infusion Device into Left Brachial Artery, Percutaneous Approach (ICD-10-PCS; principal; 2021-10-07)
PROC: 05HM33Z Insertion of Infusion Device into Right Internal Jugular Vein, Percutaneous Approach (ICD-10-PCS; 2021-10-07)
PROC: 05HN33Z Insertion of Infusion Device into Left Internal Jugular Vein, Percutaneous Approach (ICD-10-PCS; 2021-10-07)
PROC: 0BH17EZ Insertion of Endotracheal Airway into Trachea, Via Natural or Artificial Opening (ICD-10-PCS; 2021-10-07)
DX: A41.9 Sepsis, unspecified organism (principal); K76.7 Hepatorenal syndrome; J96.01 Acute respiratory failure with hypoxia; R65.21 Severe sepsis with septic shock; E87.2 Acidosis; K65.2 Spontaneous bacterial peritonitis; E87.4 Mixed disorder of acid-base balance; D68.9 Coagulation defect, unspecified; D61.818 Other pancytopenia; K70.41 Alcoholic hepatic failure with coma; N17.9 Acute kidney failure, unspecified; E11.22 Type 2 diabetes mellitus with diabetic chronic kidney disease; I85.00 Esophageal varices without bleeding; E87.1 Hypo-osmolality and hyponatremia; N18.30 Chronic kidney disease, stage 3 unspecified; K70.31 Alcoholic cirrhosis of liver with ascites; K72.90 Hepatic failure, unspecified without coma; D64.9 Anemia, unspecified; E87.6 Hypokalemia; F10.20 Alcohol dependence, uncomplicated; I12.9 Hypertensive chronic kidney disease with stage 1 through stage 4 chronic kidney disease, or unspecified chronic kidney disease; K21.9 Gastro-esophageal reflux disease without esophagitis; R58 Hemorrhage, not elsewhere classified; B19.20 Unspecified viral hepatitis C without hepatic coma; Z66 Do not resuscitate; Z79.899 Other long term (current) drug therapy; F41.9 Anxiety disorder, unspecified; E78.5 Hyperlipidemia, unspecified; F17.200 Nicotine dependence, unspecified, uncomplicated